=== PATIENT | female | born 1935 | race Caucasian/White ===

== ENCOUNTER 2017-04-19 11:59 | Inpatient (IN) | payer OTHER, BC ==
[2017-04-19 12:10] VITALS: BMI 31.7
--- NOTE | 2017-04-19 12:14 | PDOC ---
History of Present Illness - General Chief Complaint: Chest Pain Stated Complaint: CHEST PAIN Time Seen by Provider: 04/19/17 12:13 History Source: Patient, Family Exam Limitations: No Limitations - History of Present Illness Initial Comments: 04/19/17 12:13 Patient is an 81 year old female with history of htn, cad s/p 2x stents, unspecified lung disease, gerd and chronic cough who was seen by PCP for 2 days of cough and progressive SOB and referred to the ED for a SBP of 210. Patient received an extra dose of Bystolic in her PCPs office and, on presenting, was bradycardic with a SBP of 185 and an O2 saturation of 87% on room air. Patient claims to have a chronic cough that worsened over the last week and progressed to a shortness of breath, pleuritic chest discomfort and light headedness for the last 2 days. The chest discomfort is non radiating, aggravated by coughing and unchanged by exertion. Patient had a normal echo/stress test in March. Patient denies any loss of consciousness and had a normal PFT 1 week ago. Denies any long trips or immobilization or history of blood clots. Also denies fever, chills and abdominal pain but endorses lower extremity edema (chronic) and malaise. PCP: Dr. Taveras ([phone]) Medication: Atorvastatin 40 mg qPM furosemide 20 mg bid Losartan 100mg daily Bystolic 10 mg daily (recently changed from metoprolol 50 daily) Levothyroxine 100 mcg daily gaviscon 33cc q4he Pantoprazole 40mg bid Glycolax 1 scoop daily Klor-con 8mEq bid ASA 81mg daily Lexapro 10 mg daily Vit B12 1000 mcg daily Vit D 50,000 mg q1wk fluticasone nasal spray daily Past History - Past Medical History Allergies/Adverse Reactions: Allergies Allergy/AdvReac Type Severity Reaction Status Date / Time codeine [Codeine] Allergy Verified 04/19/17 12:10 meperidine HCl [From Demerol] Allergy Verified 04/19/17 12:10 Home Medications: Ambulatory Orders Aspirin [ASA -] 81 mg PO DAILY 04/19/17 Atorvastatin Ca [Lipitor] 40 mg PO HS 04/19/17 Cyanocobalamin (Vitamin B-12) [Vitamin B-12] 1,000 mcg PO DAILY 04/19/17 Escitalopram Oxalate [Lexapro -] 10 mg PO DAILY 04/19/17 Fluticasone Furoate [Flonase Sensimist] 9.9 ml NS DAILY 04/19/17 Furosemide 20 mg PO DAILY 04/19/17 Levothyroxine [Synthroid -] 100 mcg PO DAILY 04/19/17 Losartan Potassium [Cozaar] 100 mg PO DAILY 04/19/17 Mag Carb/Al Hydrox/Alginic AC [Gaviscon Liquid] 15 - 30 ml PO Q6H 04/19/17 Mometasone/Formoterol [Dulera 100 Mcg/5 Mcg Inhaler] 2 inh IH BID 04/19/17 Nebivolol HCl [Bystolic] 10 mg PO DAILY 04/19/17 Pantoprazole Sodium 40 mg PO BID 04/19/17 Polyethylene Glycol 3350 [Glycolax] 119 gm PO DAILY 04/19/17 Potassium Chloride [Klor-Con 8] 8 meq PO DAILY 04/19/17 Anemia: No Asthma: No Cancer: No Cardiac Disorders: (CARDIAC STENTS) CVA: No COPD: Yes CHF: Yes Dementia: No Diabetes: No GI Disorders: Yes (ACID REFLUX) Disorders: No HTN: Yes Hypercholesterolemia: Yes Liver Disease: No Seizures: No Thyroid Disease: Yes (thyroidectomy) - Surgical History Abdominal Surgery: No Appendectomy: No Cardiac Surgery: Yes (2 CARDIAC [id number]) Cholecystectomy: Yes Lung Surgery: No Neurologic Surgery: No Orthopedic Surgery: Yes (RIGHT KNEE ARTHROSCOPY) - Psycho/Social/Smoking Cessation Hx Anxiety: Yes Suicidal Ideation: No Smoking History: Never smoked Have you smoked in the past 12 months: No Number of Cigarettes Smoked Daily: 0 Information on smoking cessation initiated: No Hx Alcohol Use: No Drug/Substance Use Hx: No Substance Use Type: None Hx Substance Use Treatment: No Review of Systems - Review of Systems Able to Perform ROS?: Yes Is the patient limited [place] proficient: No Constitutional: Yes: Malaise, Weakness. No: Chills, Fever HEENTM: Yes: Other (Dry mouth and throat). No: Throat Pain Respiratory: Yes: Shortness of Breath Cardiac (ROS): Yes: Edema (lower extremity), Lightheadedness ABD/GI: Yes: Abdominal Distended, Constipated, Other (No abdominal pain). No: Diarrhea Neurological: Yes: Dizziness All Other Systems: Reviewed and Negative *Physical Exam - Vital Signs Last Vital Signs Temp Pulse Resp BP Pulse Ox 97.7 F 46 L 20 185/56 99 04/19/17 12:00 04/19/17 12:00 04/19/17 12:00 04/19/17 12:00 04/19/17 12:00 13:20: P 47, BP 172/44, RR 18, SPO2 96% 2L NC 14:00 BP 176/48, SPO2 94 RA 15:00 BP 193/58 15:22 BP 180/59 - Physical Exam General Appearance: Yes: Nourished, Appropriately Dressed HEENT: positive: EOMI, MORENA Respiratory/Chest: positive: Lungs Clear, Normal Breath Sounds, Respiratory Distress (Speaking in fragmented sentences), Other (Cough on deep inspiration). negative: Crackles, Rales, Rhonchi, Stridor, Wheezing Cardiovascular: negative: Regular Rate (Saúl), JVD Vascular Pulses: Dorsalis-Pedis (R): 3+, Doralis-Pedis (L): 3+ Extremity: positive: Pedal Edema (and ankles b/l, mild, non piting). negative: Delayed Capillary Refill (2-3s), Calf Tenderness (b/l) Integumentary: positive: Normal Color, Dry, Warm ED Treatment Course - LABORATORY CBC & Chemistry Diagram: 04/22/17 05:35 04/22/17 05:35 - RADIOLOGY Radiograph Interpretation: 04/19/17 15:59 RAD/CHEST X-RAY PORTABLE* Impression. No evidence of pulmonary infiltrates, pneumothorax or large pleural effusion. Shallow inspiration with accentuated pulmonary vasculature. Medical Decision Making - Medical Decision Making 04/19/17 13:46 Patient is 81 yo with htn, unspecified lung and heart disease, gerd, chronic cough presents with CC SOB, elevated SBP and associated lightheadedness, cp On physical exam, patient is found to be afebril with respiratory distress (low O2 saturation and speaking in broken sentences), mild lower extremity edema, a dry cough on deep inspiration and clear lungs Ddx: PE, Pneumothorax, PNA, CHF/COPD Exacerbation, ACS, H&T O2, Monitor, IV access CBC, CMP, CXR Cardiac enzymes, BNP, ECG @1:20 Monitor: 47, 172/49, RR18 96% 2L NC 04/19/17 13:53 CBC WBC 8.3 K/mm3 (4.0-10.0) 04/19/17 13:14 RBC 4.54 M/mm3 (3.60-5.2) 04/19/17 13:14 Hgb 10.6 GM/dL (10.7-15.3) L 04/19/17 13:14 Hct 32.7 % (32.4-45.2) 04/19/17 13:14 MCV 72.1 fl (80-96) L 04/19/17 13:14 MCH 23.3 pg (25.7-33.7) L 04/19/17 13:14 MCHC 32.3 g/dl (32.0-36.0) 04/19/17 13:14 RDW 19.0 % (11.6-15.6) H D 04/19/17 13:14 Plt Count 255 K/MM3 (134-434) 04/19/17 13:14 MPV 8.8 fl (7.5-11.1) 04/19/17 13:14 Neutrophils % 62.3 % (42.8-82.8) 04/19/17 13:14 Lymphocytes % 24.2 % (8-40) D 04/19/17 13:14 Monocytes % 11.1 % (3.8-10.2) H 04/19/17 13:14 Eosinophils % 1.7 % (0-4.5) 04/19/17 13:14 Basophils % 0.7 % (0-2.0) 04/19/17 13:14 Anemia (10.6) with elevated RDW Hgb was 11.2 on 04/13/16 No elevation in WBC 04/19/17 15:13 CXR: No evidence of pulmonary infiltrates, pneumothorax, or large plural effusion. Accentuated pulmonary vasculature consistent with fluid o/l. trop(-), BNP > 1000, sob likely d/t mild fluid overload in context of increased anemia BUN, Alk Phos, baseline elevations BP 193/58, 94% RA Patient given an extra dose Lasix to remove some fluid and help with the continued hypertension. 04/19/17 15:19 Patient is afebrile and maintaining saturation above 94 on RA, SOB has improved and patient is urinating. BP increasing and signs of possible end ogrin damage (BNP >1000), likely dx Hypertensive emergency with CHF exacerbation Spoke with Dr Mica Taveras ([phone]) about admitting the patient to telemetry, she agreed to have patient admitted to cardiac observation through Dr. Shelby to monitor patients BP. 04/19/17 15:30 BP: 180/59, 0.4 Nitro SL 04/19/17 15:[address] Shelby and he agreed to admit patient to tele obs Spoke with patient and family who were in agreement with the plan. *DC/Admit/Observation/Transfer Diagnosis at time of Disposition: Hypertensive emergency, Shortness of breath Congestive cardiac failure Qualifiers: Congestive heart failure type: unspecified congestive heart failure type Congestive heart failure chronicity: unspecified congestive heart failure chronicity Qualified Code(s): I50.9 - Heart failure, unspecified - Discharge Dispostion Admit: Yes - Referrals - Attestations Physician Attestion: 04/19/17 15:54 I, Dr. Uri Calabrese, attest that this document has been prepared under my direction and personally reviewed by me in its entirety. I further attest, that it accurately reflects all work, treatment, procedures and medical decision -making performed by me.
[2017-04-19 13:20] LABS: BASOPHIL 0.7 % (0-2.0); EOSINOPHIL 1.7 % (0-4.5); MCH 23.3 pg (25.7-33.7); MCHC 32.3 g/dl (32.0-36.0); MEAN CELL VOLUME 72.1 fl (80-96); MEAN PLT VOLUME 8.8 fl (7.5-11.1); NEUTROPHILS 62.3 % (42.8-82.8); PLATELET COUNT 255 K/MM3 (134-434); WHITE BLOOD COUNT 8.3 K/mm3 (4.0-10.0)
--- NOTE | 2017-04-19 13:35 | PDOC ---
Attending Attestation - Resident Resident Name: Uri Calabrese - ED Attending Attestation I have performed the following: I have examined & evaluated the patient, The case was reviewed & discussed with the resident, I agree w/resident's findings & plan, Exceptions are as noted - HPI HPI: 04/19/17 13:22 81 yo F with h/o CAD, CHF HTN , chronic lung disease ( unknown cause h/o second hand smoke exposure) here with c/o sob. progressive for few days. does have a cough, productive clear phlegm. no f/c no n/v no cp. no worsening leg edema. has been taking bistolic, and lasix 40 mg q am only. today saw dr. hudson, and sent to eD due to HTN 210/80 wheezing on exam concerns for fluid overload. no cp. no n/v no mod factore. sob not postional. only chest discomfort when coughing. pt had recent pulmonary function test which were negative. also had a stress test and echo in 03/20 which were unremarkable.per pcp dr. boles - Physicial Exam PE: 05/03/17 04:09 NAD. lungs bilateral wheezing. no crackles. heart RRR no mrgb. abd soft Nt nd. ext wwp mild nonpitting edema. - Medical Decision Making 05/03/17 04:09 81 yo F with h/o chf, here with c/o wheezing sob, differential brochitis, copdk chf infection such as pna, plan labs ekg cxr neb. reassess. Heart Score/ECG Review #1 General ECG Interpretation: Sinus Rhythm, Normal Rate (sinus indira cardia 49 bpm ), Normal Intervals, No acute ischemic changes Compared to previous ECG there are: No significant change 04/19/17 13:[address] elevation or depression - ECG Impressions Bradycardia: Yes
[2017-04-19 14:07] LABS: ALBUMIN 3.4 g/dl (3.4-5.0); ALK PHOS 167 U/L (45-117); ANION GAP 6 (8-16); BILIRUBIN,TOTAL 0.7 mg/dL (0.2-1.0); CALCIUM 8.9 mg/dL (8.5-10.1); CO2 29 mmol/L (21-32); CREATININE 0.8 mg/dL (0.55-1.02); GLUCOSE,RANDOM 82 mg/dL (74-106); SGOT/AST 27 U/L (15-37); SGPT/ALT 18 U/L (12-78); TOT PROT 6.2 g/dl (6.4-8.2)
[2017-04-19 14:23] LABS: TROPONIN I < 0.02 ng/ml (0.00-0.05)
[2017-04-19] MEDS ORDERED: FUROSEMIDE 40 MG/4 ML INJECTABLE VIAL IVPUSH ONE (15:00)
[2017-04-19] MEDS ORDERED: FUROSEMIDE 40 MG/4 ML INJECTABLE VIAL ONE (15:24)
[2017-04-19] MEDS ORDERED: ACETAMINOPHEN 325 MG TABLET (FP) PO ONE (16:21)
[2017-04-19] MEDS ORDERED: ACETAMINOPHEN 325 MG TABLET (FP) ONE (16:58)
--- NOTE | 2017-04-19 16:59 | EKG ---
Test Reason : Blood Pressure : / mmHG Vent. Rate : 049 BPM Atrial Rate : 049 BPM P-R Int : 222 ms QRS Dur : 080 ms QT Int : 516 ms P-R-T Axes : 044 007 008 degrees QTc Int : 466 ms SINUS BRADYCARDIA WITH 1ST DEGREE A-V BLOCK WITH PREMATURE ATRIAL COMPLEXES NONSPECIFIC ST ABNORMALITY ABNORMAL ECG WHEN COMPARED WITH ECG OF 13-APR-2016 07:42, PREMATURE ATRIAL COMPLEXES ARE NOW PRESENT PREMATURE VENTRICULAR COMPLEX IS NO LONGER SEEN Confirmed by CARINA FARLEY MD ([id number]) on 04/19/2017 4:58:57 PM Referred By: Confirmed By:CARINA FARLEY MD
--- NOTE | 2017-04-19 17:19 | HP ---
Admitting History and Physical - Primary Care Physician PCP: Mica Taveras - Admission Chief Complaint: I'm short of breath History of Present Illness: Ms Dorantes is a very pleasant 81 year old female who comes in from the office with hypertensive urgency and CHF exacerbation. She says it began approximately one week ago but has worsened since yesterday. She says she has chest heaviness with shortness of breath. She cannot tell me if the chest heaviness is alleviated, however exertion and talking exacerbates it. She also has shortness of breath associated with the heaviness. The heaviness does not radiate. She has lightheadedness but not passing out. She has a cough that is chronic and unchanged. She has orthopnea associated with it. She feels bloating in her abdomen and swelling in her legs. She denies abdominal pain, nausea, vomiting, diarrhea, or difficulty or pain on urination. She says she has a high salt diet and is not strict about her diet. History Source: Patient Limitations to Obtaining History: No Limitations - Past Medical History Cardiovascular: Yes: CAD, HTN, Other (coronary stenting on 2 occasions, s/p mitral valvuloplasty) Pulmonary: Yes: COPD Gastrointestinal: Yes: Constipation, Diverticulitis, Gastritis, GERD, Other ( colon adenomas) Musculoskeletal: Yes: Chronic low back pain, Osteoarthritis Endocrine: Yes: Hypothyroidism, Other (osteoporosis) - Past Surgical History Past Surgical History: Yes: Arthrosocopy, Cholecystectomy, Hysterectomy - Smoking History Smoking history: Never smoked Have you smoked in the past 12 months: No Aproximately how many cigarettes per day: 0 - Alcohol/Substance Use Hx Alcohol Use: No History of Substance Use: reports: None - Social History Usual Living Arrangement: Yes: Alone ADL: Independent History of Recent Travel: No Home Medications - Allergies Allergies/Adverse Reactions: Allergies Allergy/AdvReac Type Severity Reaction Status Date / Time codeine [Codeine] Allergy Verified 04/19/17 12:10 meperidine HCl [From Demerol] Allergy Verified 04/19/17 12:10 - Home Medications Home Medications: Ambulatory Orders Aspirin [ASA -] 81 mg PO DAILY 04/19/17 Atorvastatin Ca [Lipitor] 40 mg PO HS 04/19/17 Cyanocobalamin (Vitamin B-12) [Vitamin B-12] 1,000 mcg PO DAILY 04/19/17 Escitalopram Oxalate [Lexapro -] 10 mg PO DAILY 04/19/17 Fluticasone Furoate [Flonase Sensimist] 9.9 ml NS DAILY 04/19/17 Furosemide 20 mg PO DAILY 04/19/17 Levothyroxine [Synthroid -] 100 mcg PO DAILY 04/19/17 Losartan Potassium [Cozaar] 100 mg PO DAILY 04/19/17 Mag Carb/Al Hydrox/Alginic AC [Gaviscon Liquid] 15 - 30 ml PO Q6H 04/19/17 Mometasone/Formoterol [Dulera 100 Mcg/5 Mcg Inhaler] 2 inh IH BID 04/19/17 Nebivolol HCl [Bystolic] 10 mg PO DAILY 04/19/17 Pantoprazole Sodium 40 mg PO BID 04/19/17 Polyethylene Glycol 3350 [Glycolax] 119 gm PO DAILY 04/19/17 Potassium Chloride [Klor-Con 8] 8 meq PO DAILY 04/19/17 Family Disease History - Family Disease History Family Disease History: Diabetes: Brother (bladder cancer), Heart Disease: Mother, Brother, CA: Brother, Sister (colon cancer, esophageal cancer,ovarian cancer), Other: Father (cva) Review of Systems Findings/Remarks: Full review of systems obtained, as per HPI and otherwise negative Physical Examination Vital Signs: Vital Signs Temperature 97.7 F 04/19/17 12:00 Pulse Rate 64 04/19/17 16:19 Respiratory Rate 18 04/19/17 16:19 Blood Pressure 160/54 04/19/17 16:19 O2 Sat by Pulse Oximetry (%) 100 04/19/17 16:19 Constitutional: Yes: Well Nourished, No Distress, Calm Eyes: Yes: Conjunctiva Clear, EOM Intact, PERRL HENT: Yes: Atraumatic, Normocephalic Cardiovascular: Yes: Regular Rate and Rhythm. No: Gallop, Murmur, Rub Respiratory: Yes: Regular, CTA Bilaterally. No: Rales, Rhonchi, Wheezes Gastrointestinal: Yes: Normal Bowel Sounds, Soft. No: Distention, Tenderness Extremities: Yes: WNL Edema: Yes Edema: LLE: Trace, RLE: Trace Labs: Laboratory Results - last 24 hr 04/19/17 04/19/17 04/19/17 12:56 13:14 13:14 WBC 8.3 RBC 4.54 Hgb 10.6 L Hct 32.7 MCV 72.1 L MCH 23.3 L MCHC 32.3 RDW 19.0 H D Plt Count 255 MPV 8.8 Neutrophils % 62.3 Lymphocytes % 24.2 D Monocytes % 11.1 H Eosinophils % 1.7 Basophils % 0.7 Sodium 143 Potassium 3.8 Chloride 108 H Carbon Dioxide 29 Anion Gap 6 L BUN 24 H Creatinine 0.8 Creat Clearance w eGFR > 60 Random Glucose 82 Calcium 8.9 Total Bilirubin 0.7 AST 27 ALT 18 D Alkaline Phosphatase 167 H D Creatine Kinase Cancelled 98 Troponin I Cancelled < 0.02 B-Natriuretic Peptide Cancelled 1048.8 H Total Protein 6.2 L Albumin 3.4 Imaging - Results Chest X-ray: Report Reviewed, Image Reviewed EKG: Image Reviewed Problem List - Problems (1) Acute on chronic diastolic (congestive) heart failure Assessment/Plan: -admit to telemetry -consult cardiology -diurese with IV lasix -monitor blood pressure Code(s): I50.33 - ACUTE ON CHRONIC DIASTOLIC (CONGESTIVE) HEART FAILURE (2) Hypertensive emergency Assessment/Plan: -exacerbating heart failure -will admit to telemetry -change lasix from oral to IV -continue home regimen -monitor, may need to adjust Code(s): I16.1 - HYPERTENSIVE EMERGENCY (3) Coronary artery disease Assessment/Plan: -no chest pain -continue home regimen -check cardiac enzymes x3 Code(s): I25.10 - ATHSCL HEART DISEASE OF [place] CORONARY ARTERY W/O ANG PCTRS Qualifiers: Coronary Disease-Associated Artery/Lesion type: [place] artery [place] vs. transplanted heart: [place] heart Associated angina: without angina Qualified Code(s): I25.10 - Atherosclerotic heart disease of [place] coronary artery without angina pectoris (4) Hyperlipidemia Assessment/Plan: -continue statin Code(s): E78.5 - HYPERLIPIDEMIA, UNSPECIFIED Qualifiers: Hyperlipidemia type: Pure hypercholesterolemia (5) Reflux esophagitis Assessment/Plan: -continue PPI Code(s): K21.0 - GASTRO-ESOPHAGEAL REFLUX DISEASE WITH ESOPHAGITIS (6) Emphysema of lung Assessment/Plan: -suspect shortness of breath is more cardiac than pulmonary -continue dulera or therapeutic substitute Code(s): J43.9 - EMPHYSEMA, UNSPECIFIED Qualifiers: Emphysema type: unspecified Qualified Code(s): J43.9 - Emphysema, unspecified (7) Hypothyroid Assessment/Plan: -check TSH and free T4 -may be contributing to HTN and CHF Code(s): E03.9 - HYPOTHYROIDISM, UNSPECIFIED
[2017-04-19] MEDS: ACETAMINOPHEN 325 MG TABLET (FP) PO PRN (21:31)
[2017-04-19] MEDS: ATORVASTATIN CA 40 MG TABLET (FP) PO SCH (21:31)
[2017-04-19 22:35] LABS: TROPONIN I < 0.02 ng/ml (0.00-0.05)
[2017-04-20] MEDS ORDERED: FUROSEMIDE 40 MG/4 ML INJECTABLE VIAL IVPUSH SCH (06:00)
[2017-04-20] MEDS: LEVOTHYROXINE NA 100 MCG TABLET (FP) PO SCH (06:18)
[2017-04-20 08:15] LABS: BASOPHIL 0.5 % (0-2.0); EOSINOPHIL 2.7 % (0-4.5); MCH 23.3 pg (25.7-33.7); MCHC 32.4 g/dl (32.0-36.0); MEAN CELL VOLUME 71.9 fl (80-96); MEAN PLT VOLUME 8.9 fl (7.5-11.1); NEUTROPHILS 52.4 % (42.8-82.8); PLATELET COUNT 233 K/MM3 (134-434); RDW 19.3 % (11.6-15.6); WHITE BLOOD COUNT 6.6 K/mm3 (4.0-10.0)
[2017-04-20 08:36] LABS: ALBUMIN 3.1 g/dl (3.4-5.0); ANION GAP 6 (8-16); BILIRUBIN,TOTAL 0.5 mg/dL (0.2-1.0); CALCIUM 8.8 mg/dL (8.5-10.1); CO2 31 mmol/L (21-32); CREATININE 0.9 mg/dL (0.55-1.02); GLUCOSE,RANDOM 80 mg/dL (74-106); PHOSPHOROUS 3.6 mg/dL (2.5-4.9); SGOT/AST 21 U/L (15-37); SGPT/ALT 16 U/L (12-78); TOT PROT 5.6 g/dl (6.4-8.2)
[2017-04-20 08:42] LABS: ALK PHOS 153 U/L (45-117); THYROID STIMULATING HORMONE 3.09 uIU/ml (0.358-3.74)
[2017-04-20 08:49] LABS: FREE T4 1.38 ng/dl (0.76-1.46); TROPONIN I < 0.02 ng/ml (0.00-0.05)
[2017-04-20] MEDS: PANTOPRAZOLE 40 MG TABLET (FP) PO SCH (09:02)
[2017-04-20] MEDS: ESCITALOPRAM OXALATE 10 MG TABLET (FP) PO SCH (09:02)
[2017-04-20] MEDS: CYANOCOBALAMIN 1,000 MCG TABLET (FP) PO SCH (09:02)
[2017-04-20] MEDS: LOSARTAN POTASSIUM 50 MG TABLET (FP) PO SCH (09:02)
[2017-04-20] MEDS: ASPIRIN 81 MG CHEWABLE TABLETS PO SCH (09:02)
[2017-04-20] MEDS: POLYETHYLENE GLYCOL 3350 119 GM BTL PO SCH (09:03)
[2017-04-20] MEDS ORDERED: FLUTICASONE FUROATE NS SCH (10:00)
[2017-04-20] MEDS ORDERED: POLYETHYLENE GLYCOL 3350 255 GM BTL PO SCH (10:00)
[2017-04-20] MEDS ORDERED: NEBIVOLOL 10 MG TABLET (FP) PO SCH (10:00)
[2017-04-20] MEDS ORDERED: LOSARTAN POTASSIUM 50 MG TABLET (FP) PO ONE (10:08)
--- NOTE | 2017-04-20 11:04 | CON.CARD ---
Cardiology Consult (text) - Consultation Consultation Note: cc: sent from pmd for htn and sob hpi: 81 f hx htn, hld, hypothyroid, cad s/p pci 2007 (lad), le edema/venous insuff, chronic URIs sent to er by pmd for htn and sob. Past few days pt has noticed herr. Also with dry cough but this is a chronic issue. With her herr she felt some chest heaviness as well. No palps, dizzy, loc, pnd, orthopnea. LE edema improved lately. She saw pmd and sbp 200s so sent to ER. Sees me for cardio. pmh: per hpi psh: cholecystectomy, hysterectomy social: no tob fam: no premature cad ros: per hpi; no fever, nvd, alanis, vision changes, nasal congestion, gib, hematuria, dysuria meds: Home Medications Medication Instructions Recorded Aspirin [ASA -] 81 mg PO DAILY 04/19/17 Atorvastatin Ca [Lipitor] 40 mg PO HS 04/19/17 Cyanocobalamin (Vitamin B-12) 1,000 mcg PO DAILY 04/19/17 [Vitamin B-12] Escitalopram Oxalate [Lexapro -] 10 mg PO DAILY 04/19/17 Fluticasone Furoate [Flonase 9.9 ml NS DAILY 04/19/17 Sensimist] Furosemide 20 mg PO DAILY 04/19/17 Levothyroxine [Synthroid -] 100 mcg PO DAILY 04/19/17 Losartan Potassium [Cozaar] 100 mg PO DAILY 04/19/17 Mag Carb/Al Hydrox/Alginic AC 15 - 30 ml PO Q6H 04/19/17 [Gaviscon Liquid] Mometasone/Formoterol [Dulera 100 2 inh IH BID 04/19/17 Mcg/5 Mcg Inhaler] Nebivolol HCl [Bystolic] 10 mg PO DAILY 04/19/17 Pantoprazole Sodium 40 mg PO BID 04/19/17 Polyethylene Glycol 3350 [Glycolax] 119 gm PO DAILY 04/19/17 Potassium Chloride [Klor-Con 8] 8 meq PO DAILY 04/19/17 pe: Vital Signs Period Temp Pulse Resp BP Sys/Rios Pulse Ox Last 24 Hr 97.4 F-98.4 F 45-64 18-20 157-196/45-84 95-100 nad no jvd rrr s1s2 no mrg cta bl nl eff aaox3 no le e/c/c abd nt nd pos bs no jaundiced diaphoresis +dp/pt, no carotid bruits 04/19/17 04/19/17 04/20/17 13:14 13:14 05:55 WBC 8.3 6.6 RBC 4.54 4.40 Hgb 10.6 L 10.3 L Hct 32.7 31.7 L MCV 72.1 L 71.9 L MCHC 32.3 32.4 RDW 19.0 H D 19.3 H Plt Count 255 233 Neutrophils % 62.3 52.4 Lymphocytes % 24.2 D 31.4 D Monocytes % 11.1 H 13.0 H Eosinophils % 1.7 2.7 Basophils % 0.7 0.5 Sodium 143 Potassium 3.8 Chloride 108 H Carbon Dioxide 29 Anion Gap 6 L BUN 24 H Creatinine 0.8 04/20/17 05:55 WBC RBC Hgb Hct MCV MCHC RDW Plt Count Neutrophils % Lymphocytes % Monocytes % Eosinophils % Basophils % Sodium 145 Potassium 3.9 Chloride 108 H Carbon Dioxide 31 Anion Gap 6 L BUN 27 H Creatinine 0.9 echo 03/2017: nl lv/rv, mild ar/mr mibi 03/2017: nl mpi, nl lvef ecg 04/19/17: sinus indira, pacs, 1st deg avb, nl qtc, no ischemic changes cxr: no chf tele: sinus indira 40s a/p: 81 f hx htn, hld, hypothyroid, cad s/p pci 2007 (lad), le edema/venous insuff, chronic URIs sent to er by pmd for htn and sob. sob, acute diastolic chf likely secondary to hypertensive emergency: -sob and elevated bnp likely due to hypertensive emergency causing dchf -no signs acs -cont cozaar. she is indira with bystolic so will dc. she had worse le edema with ccb so will avoid. Will start hydralazine 50 bid for now and monitor bp response -will likely not need much iv lasix as she does not appear very vol overloaded and sxs should improve with bp control -recent echo and mibi unremarkable le edema/venous insuff: -stable, no sig le edema currently -resume lasix 20 po qd-bid on dc htn: -plan as above hld: -cont statin cad s/p remote pci: -stable, no angina, no signs acs -ce's neg x3, ecg w/o ischemic changes -recent mibi and echo unremarkable -cont asa, statin, arb -will dc bb due to bradycardia
[2017-04-20] MEDS: hydrALAZINE HCL 50 MG TABLET (FP) PO SCH ×2 (11:30→23:04)
--- NOTE | 2017-04-20 13:19 | PN ---
Progress Note, Physician Chief Complaint: Ms Dorantes still with chest tightness and shortness of breath. No abdominal pain or nausea/vomiting. - Current Medication List Current Medications: Active Medications Acetaminophen (Tylenol -) 650 mg PO Q4H PRN PRN Reason: FEVER OR PAIN Last Admin: 04/19/17 21:31 Dose: 650 mg Aspirin (Asa -) 81 mg PO DAILY [facility] Last Admin: 04/20/17 09:02 Dose: 81 mg Atorvastatin Calcium (Lipitor -) 40 mg PO HS [facility] Last Admin: 04/19/17 21:31 Dose: 40 mg Cyanocobalamin (Vitamin B12 -) 1,000 mcg PO DAILY [facility] Last Admin: 04/20/17 09:02 Dose: 1,000 mcg Escitalopram Oxalate (Lexapro -) 10 mg PO DAILY [facility] Last Admin: 04/20/17 09:02 Dose: 10 mg Furosemide (Lasix Injection -) 40 mg IVPUSH BIDLASIX [facility] Last Admin: 04/20/17 06:18 Dose: 40 mg Hydralazine HCl (Apresoline -) 50 mg PO BID [facility] Last Admin: 04/20/17 11:30 Dose: 50 mg Levothyroxine Sodium (Synthroid -) 100 mcg PO DAILY@0700 [facility] Last Admin: 04/20/17 06:18 Dose: 100 mcg Losartan Potassium (Cozaar -) 100 mg PO DAILY [facility] Last Admin: 04/20/17 09:02 Dose: 100 mg Non-Formulary Medication (Fluticasone Furoate [Flonase Sensimist]) 9.9 ml NS DAILY [facility] Non-Formulary Medication (Mag Carb/Al Hydrox/Alginic Ac [Gaviscon Liquid]) 30 ml PO Q6H [facility] Non-Formulary Medication (Mometasone/Formoterol [Dulera 100 Mcg/5 Mcg Inhaler]) 2 inh IH BID [facility] Pantoprazole Sodium (Protonix -) 40 mg PO DAILY [facility] Last Admin: 04/20/17 09:02 Dose: 40 mg Polyethylene Glycol (Miralax (For Daily Use) -) 17 gm PO DAILY [facility] Last Admin: 04/20/17 09:03 Dose: 17 gm - Objective Vital Signs: Vital Signs Temperature 98.3 F 04/20/17 08:45 Pulse Rate 48 L 04/20/17 08:45 Respiratory Rate 20 04/20/17 10:00 Blood Pressure 193/64 07/18/17 08:45 O2 Sat by Pulse Oximetry (%) 98 04/20/17 10:00 Constitutional: Yes: Well Nourished, No Distress, Calm Cardiovascular: Yes: Pulse Irregular. No: Tachycardia, Gallop, Murmur, Rub Respiratory: Yes: Regular, CTA Bilaterally, On Nasal O2. No: Rales, Rhonchi, Wheezes Gastrointestinal: Yes: Normal Bowel Sounds, Soft. No: Distention, Tenderness Extremities: Yes: WNL Edema: Yes Edema: LLE: Trace, RLE: Trace Labs: CBC, BMP 04/20/17 05:55 04/20/17 05:55 Problem List - Problems (1) Acute on chronic diastolic (congestive) heart failure Code(s): I50.33 - ACUTE ON CHRONIC DIASTOLIC (CONGESTIVE) HEART FAILURE (2) Hypertensive emergency Code(s): I16.1 - HYPERTENSIVE EMERGENCY (3) Coronary artery disease Code(s): I25.10 - ATHSCL HEART DISEASE OF [place] CORONARY ARTERY W/O ANG PCTRS Qualifiers: Coronary Disease-Associated Artery/Lesion type: [place] artery [place] vs. transplanted heart: [place] heart Associated angina: without angina Qualified Code(s): I25.10 - Atherosclerotic heart disease of [place] coronary artery without angina pectoris (4) Hyperlipidemia Code(s): E78.5 - HYPERLIPIDEMIA, UNSPECIFIED Qualifiers: Hyperlipidemia type: Pure hypercholesterolemia (5) Reflux esophagitis Code(s): K21.0 - GASTRO-ESOPHAGEAL REFLUX DISEASE WITH ESOPHAGITIS (6) Emphysema of lung Code(s): J43.9 - EMPHYSEMA, UNSPECIFIED Qualifiers: Emphysema type: unspecified Qualified Code(s): J43.9 - Emphysema, unspecified (7) Hypothyroid Code(s): E03.9 - HYPOTHYROIDISM, UNSPECIFIED Assessment/Plan (1) Acute on chronic diastolic (congestive) heart failure Assessment/Plan: -appreciate cardiology assistance -continue IV lasix, diuresing well -7lbs weight loss recorded Code(s): I50.33 - ACUTE ON CHRONIC DIASTOLIC (CONGESTIVE) HEART FAILURE (2) Hypertensive emergency Assessment/Plan: -exacerbating heart failure -still elevated -reviewed cardiology note, hydralazine added -monitor Code(s): I16.1 - HYPERTENSIVE EMERGENCY (3) Coronary artery disease Assessment/Plan: -no chest pain -continue home regimen -cardiac enzymes x3 negative Code(s): I25.10 - ATHSCL HEART DISEASE OF [place] CORONARY ARTERY W/O ANG PCTRS Qualifiers: Coronary Disease-Associated Artery/Lesion type: [place] artery [place] vs. transplanted heart: [place] heart Associated angina: without angina Qualified Code(s): I25.10 - Atherosclerotic heart disease of [place] coronary artery without angina pectoris (4) Hyperlipidemia Assessment/Plan: -continue statin Code(s): E78.5 - HYPERLIPIDEMIA, UNSPECIFIED Qualifiers: Hyperlipidemia type: Pure hypercholesterolemia (5) Reflux esophagitis Assessment/Plan: -continue PPI Code(s): K21.0 - GASTRO-ESOPHAGEAL REFLUX DISEASE WITH ESOPHAGITIS (6) Emphysema of lung Assessment/Plan: -spoke with pharmacy -change dulera to advair Code(s): J43.9 - EMPHYSEMA, UNSPECIFIED Qualifiers: Emphysema type: unspecified Qualified Code(s): J43.9 - Emphysema, unspecified (7) Hypothyroid Assessment/Plan: -continue synthroid -TSH and FT4 within normal limits Code(s): E03.9 - HYPOTHYROIDISM, UNSPECIFIED
[2017-04-20] MEDS ORDERED: MAG HYDROX/AL HYDROX/SIMETH 30 ML UNIT-DOSE CUP PO PRN (14:05)
[2017-04-20] MEDS: PATIENT'S OWN MEDICATION (NON-FORMULARY) (Mometasone/Formoterol [Dulera 100 Mcg/5 Mcg Inha IH SCH ×2 (14:10→16:39)
[2017-04-20] MEDS: BUDESONIDE/FORMETEROL FUMARATE 80/4.5 mcg INHALER IH SCH ×2 (14:45→23:03)
[2017-04-20] MEDS: ALBUTEROL SO4 0.083% IH SOL 2.5 MG/3 ML VIAL.NEB. NEB PRN (21:35)
[2017-04-20] MEDS: ATORVASTATIN CA 40 MG TABLET (FP) PO SCH (23:04)
[2017-04-20] MEDS: ACETAMINOPHEN 325 MG TABLET (FP) PO PRN (23:04)
[2017-04-21] MEDS: LEVOTHYROXINE NA 100 MCG TABLET (FP) PO SCH (06:15)
[2017-04-21 07:21] LABS: MCH 22.6 pg (25.7-33.7); MCHC 31.3 g/dl (32.0-36.0); MEAN CELL VOLUME 72.4 fl (80-96); MEAN PLT VOLUME 9.1 fl (7.5-11.1); PLATELET COUNT 278 K/MM3 (134-434); RDW 19.2 % (11.6-15.6); WHITE BLOOD COUNT 9.8 K/mm3 (4.0-10.0)
[2017-04-21 07:52] LABS: ANION GAP 9 (8-16); CALCIUM 9.1 mg/dL (8.5-10.1); CO2 27 mmol/L (21-32); CREATININE 1.1 mg/dL (0.55-1.02); GLUCOSE,RANDOM 90 mg/dL (74-106); MAGNESIUM 2.2 mg/dL (1.8-2.4); PHOSPHOROUS 3.7 mg/dL (2.5-4.9)
[2017-04-21] MEDS ORDERED: hydrALAZINE HCL 50 MG TABLET (FP) PO SCH (10:03)
[2017-04-21 10:37] LABS: HYPOCHROMIA 1+
[2017-04-21 10:38] LABS: ANISOCYTOSIS 1+
--- NOTE | 2017-04-21 11:03 | PN ---
Progress Note (short form) - Note Progress Note: s: no cp palps dizzy; still with mild sob o: Vital Signs Period Temp Pulse Resp BP Sys/Rios Pulse Ox Last 24 Hr 97.4 F-98.6 F 48-56 18-22 101-151/42-60 95 nad no jvd rrr s1s2 no mrg cta bl nl eff aaox3 no le e/c/c abd nt nd pos bs no jaundiced diaphoresis Current Medications Generic Name Dose Route Start Last Admin Trade Name Freq PRN Reason Stop Dose Admin Acetaminophen 650 mg 04/19/17 17:15 04/20/17 23:04 Tylenol - PO 650 mg Q4H PRN Administration FEVER OR PAIN Al Hydroxide/Mg Hydroxide 30 ml 04/20/17 14:05 Mylanta Oral Suspension - PO Q6HPO PRN INDIGESTION Albuterol Sulfate 1 amp 04/20/17 20:32 04/20/17 21:35 Ventolin 0.083% Nebulizer Soln - NEB 1 amp Q6H PRN Administration SHORT OF BREATH/WHEEZING Aspirin 81 mg 04/20/17 10:00 04/20/17 09:02 Asa - PO 81 mg DAILY [facility] Administration Atorvastatin Calcium 40 mg 04/19/17 22:00 04/20/17 23:04 Lipitor - PO 40 mg HS [facility] Administration Budesonide/Formoterol Fumarate 2 puff 04/20/17 13:54 04/20/17 23:03 Symbicort 80/4.5mcg - IH 2 puff BID [facility] Administration Cyanocobalamin 1,000 mcg 04/20/17 10:00 04/20/17 09:02 Vitamin B12 - PO 1,000 mcg DAILY [facility] Administration Escitalopram Oxalate 10 mg 04/20/17 10:00 04/20/17 09:02 Lexapro - PO 10 mg DAILY [facility] Administration Fluticasone Propionate 1 spray 04/21/17 10:00 Flonase - NS DAILY [facility] Furosemide 20 mg 04/21/17 10:00 Lasix - PO DAILY [facility] Hydralazine HCl 10 mg 04/21/17 10:30 Apresoline - PO BID [facility] Levothyroxine Sodium 100 mcg 04/20/17 07:00 04/21/17 06:15 Synthroid - PO 100 mcg DAILY@0700 [facility] Administration Losartan Potassium 100 mg 04/20/17 10:00 07/18/17 09:02 Cozaar - PO 100 mg DAILY [facility] Administration Pantoprazole Sodium 40 mg 04/20/17 10:00 04/20/17 09:02 Protonix - PO 40 mg DAILY [facility] Administration Polyethylene Glycol 17 gm 04/20/17 10:00 04/20/17 09:03 Miralax (For Daily Use) - PO 17 gm DAILY [facility] Administration CBC, BMP 04/21/17 05:35 04/21/17 05:35 echo 03/2017: nl lv/rv, mild ar/mr mibi 03/2017: nl mpi, nl lvef ecg 04/19/17: sinus indira, pacs, 1st deg avb, nl qtc, no ischemic changes cxr: no chf tele: sr a/p: 81 f hx htn, hld, hypothyroid, cad s/p pci 2007 (lad), le edema/venous insuff, chronic URIs sent to er by pmd for htn and sob. sob, acute diastolic chf likely secondary to hypertensive emergency: -sob and elevated bnp likely due to hypertensive emergency causing dchf -no signs acs -cont cozaar. she is indira with bystolic so stopped here. she had worse le edema with ccb so will avoid. Started hydralazine 50 bid but then had bp on lower side so will decrease to 10 bid and titrate up if needed -after iv lasix here bun/cr bumped and she does not appear vol overloaded now so will change back to home po lasix 20 qd -her sob/herr is a chronic symptom for her, may be have been exacerbated by htn emergency, but otherwise does not appear cardiac in etiology -recent echo and mibi unremarkable le edema/venous insuff: -stable, no sig le edema currently -resumed lasix 20 po qd htn: -plan as above hld: -cont statin cad s/p remote pci: -stable, no angina, no signs acs -ce's neg x3, ecg w/o ischemic changes -recent mibi and echo unremarkable -cont asa, statin, arb -stopped bb due to bradycardia
[2017-04-21] MEDS: LOSARTAN POTASSIUM 50 MG TABLET (FP) PO SCH (11:50)
[2017-04-21] MEDS: ASPIRIN 81 MG CHEWABLE TABLETS PO SCH (11:50)
[2017-04-21] MEDS: ESCITALOPRAM OXALATE 10 MG TABLET (FP) PO SCH (11:51)
[2017-04-21] MEDS: POLYETHYLENE GLYCOL 3350 119 GM BTL PO SCH (11:51)
[2017-04-21] MEDS: FUROSEMIDE 20 MG TABLET (FP) PO SCH (11:51)
[2017-04-21] MEDS: FLUTICASONE PROP 0.05% 16 GM NASAL SPRAY NS SCH (11:51)
[2017-04-21] MEDS: BUDESONIDE/FORMETEROL FUMARATE 80/4.5 mcg INHALER IH SCH ×2 (11:52→21:17)
[2017-04-21] MEDS: PANTOPRAZOLE 40 MG TABLET (FP) PO SCH (11:52)
[2017-04-21] MEDS: hydrALAZINE HCL 10 MG TABLET PO SCH ×2 (11:52→21:15)
[2017-04-21] MEDS: CYANOCOBALAMIN 1,000 MCG TABLET (FP) PO SCH (11:52)
--- NOTE | 2017-04-21 12:44 | PN ---
Progress Note, Physician Chief Complaint: Ms Dorantes says she is feeling better and is now at baseline. She says her baseline is significant shortness of breath with minimal activity or talking. Chest tightness has resolved. No abdominal pain or nausea/vomiting. - Current Medication List Current Medications: Active Medications Acetaminophen (Tylenol -) 650 mg PO Q4H PRN PRN Reason: FEVER OR PAIN Last Admin: 04/20/17 23:04 Dose: 650 mg Al Hydroxide/Mg Hydroxide (Mylanta Oral Suspension -) 30 ml PO Q6HPO PRN PRN Reason: INDIGESTION Albuterol Sulfate (Ventolin 0.083% Nebulizer Soln -) 1 amp NEB Q6H PRN PRN Reason: SHORT OF BREATH/WHEEZING Last Admin: 04/20/17 21:35 Dose: 1 amp Aspirin (Asa -) 81 mg PO DAILY [facility] Last Admin: 04/21/17 11:50 Dose: 81 mg Atorvastatin Calcium (Lipitor -) 40 mg PO HS [facility] Last Admin: 04/20/17 23:04 Dose: 40 mg Budesonide/Formoterol Fumarate (Symbicort 80/4.5mcg -) 2 puff IH BID [facility] Last Admin: 04/21/17 11:52 Dose: 2 puff Cyanocobalamin (Vitamin B12 -) 1,000 mcg PO DAILY [facility] Last Admin: 04/21/17 11:52 Dose: 1,000 mcg Escitalopram Oxalate (Lexapro -) 10 mg PO DAILY [facility] Last Admin: 04/21/17 11:51 Dose: 10 mg Fluticasone Propionate (Flonase -) 1 spray NS DAILY [facility] Last Admin: 04/21/17 11:51 Dose: 1 spray Furosemide (Lasix -) 20 mg PO DAILY [facility] Last Admin: 04/21/17 11:51 Dose: 20 mg Hydralazine HCl (Apresoline -) 10 mg PO BID [facility] Last Admin: 04/21/17 11:52 Dose: 10 mg Levothyroxine Sodium (Synthroid -) 100 mcg PO DAILY@0700 [facility] Last Admin: 04/21/17 06:15 Dose: 100 mcg Losartan Potassium (Cozaar -) 100 mg PO DAILY [facility] Last Admin: 04/21/17 11:50 Dose: 100 mg Pantoprazole Sodium (Protonix -) 40 mg PO DAILY [facility] Last Admin: 04/21/17 11:52 Dose: 40 mg Polyethylene Glycol (Miralax (For Daily Use) -) 17 gm PO DAILY [facility] Last Admin: 04/21/17 11:51 Dose: 17 gm - Objective Vital Signs: Vital Signs Temperature 97.5 F L 04/21/17 06:00 Pulse Rate 56 L 04/21/17 06:00 Respiratory Rate 20 04/21/17 06:00 Blood Pressure 151/51 04/21/17 06:00 O2 Sat by Pulse Oximetry (%) 95 04/20/17 21:00 Constitutional: Yes: Well Nourished, No Distress, Calm Cardiovascular: Yes: Regular Rate and Rhythm. No: Gallop, Murmur, Rub Respiratory: Yes: Regular, SOB, Wheezes. No: CTA Bilaterally, Rales, Rhonchi, Tachypnea Gastrointestinal: Yes: Normal Bowel Sounds, Soft. No: Distention, Tenderness Extremities: Yes: WNL Edema: No Labs: CBC, BMP 04/21/17 05:35 04/21/17 05:35 Problem List - Problems (1) Acute on chronic diastolic (congestive) heart failure Code(s): I50.33 - ACUTE ON CHRONIC DIASTOLIC (CONGESTIVE) HEART FAILURE (2) Hypertensive emergency Code(s): I16.1 - HYPERTENSIVE EMERGENCY (3) Coronary artery disease Code(s): I25.10 - ATHSCL HEART DISEASE OF [place] CORONARY ARTERY W/O ANG PCTRS Qualifiers: Coronary Disease-Associated Artery/Lesion type: [place] artery [place] vs. transplanted heart: [place] heart Associated angina: without angina Qualified Code(s): I25.10 - Atherosclerotic heart disease of [place] coronary artery without angina pectoris (4) Hyperlipidemia Code(s): E78.5 - HYPERLIPIDEMIA, UNSPECIFIED Qualifiers: Hyperlipidemia type: Pure hypercholesterolemia (5) Reflux esophagitis Code(s): K21.0 - GASTRO-ESOPHAGEAL REFLUX DISEASE WITH ESOPHAGITIS (6) Emphysema of lung Code(s): J43.9 - EMPHYSEMA, UNSPECIFIED Qualifiers: Emphysema type: unspecified Qualified Code(s): J43.9 - Emphysema, unspecified (7) Hypothyroid Code(s): E03.9 - HYPOTHYROIDISM, UNSPECIFIED Assessment/Plan (1) Acute on chronic diastolic (congestive) heart failure Assessment/Plan: -at dry weight -stop IV lasix, place back on home dose -appreciate cardiology assistance Code(s): I50.33 - ACUTE ON CHRONIC DIASTOLIC (CONGESTIVE) HEART FAILURE (2) Hypertensive emergency Assessment/Plan: -resolved -decrease hydralazine as lowered blood pressure too rapidly Code(s): I16.1 - HYPERTENSIVE EMERGENCY (3) Coronary artery disease Assessment/Plan: -no chest pain -continue home regimen -cardiac enzymes x3 negative Code(s): I25.10 - ATHSCL HEART DISEASE OF [place] CORONARY ARTERY W/O ANG PCTRS Qualifiers: Coronary Disease-Associated Artery/Lesion type: [place] artery [place] vs. transplanted heart: [place] heart Associated angina: without angina Qualified Code(s): I25.10 - Atherosclerotic heart disease of [place] coronary artery without angina pectoris (4) Hyperlipidemia Assessment/Plan: -continue statin Code(s): E78.5 - HYPERLIPIDEMIA, UNSPECIFIED Qualifiers: Hyperlipidemia type: Pure hypercholesterolemia (5) Reflux esophagitis Assessment/Plan: -continue PPI Code(s): K21.0 - GASTRO-ESOPHAGEAL REFLUX DISEASE WITH ESOPHAGITIS (6) Emphysema of lung Assessment/Plan: -consult pulmonary -patient significantly short of breath with minimal exertion Code(s): J43.9 - EMPHYSEMA, UNSPECIFIED Qualifiers: Emphysema type: unspecified Qualified Code(s): J43.9 - Emphysema, unspecified (7) Hypothyroid Assessment/Plan: -continue synthroid -TSH and FT4 within normal limits Code(s): E03.9 - HYPOTHYROIDISM, UNSPECIFIED
--- NOTE | 2017-04-21 13:29 | PN ---
Progress Note (short form) - Note Progress Note: PULMONARY CONSULTATION DICTATED 04/21/17 IMP HYPERTENSIVE URGENCY DIASTOICC HF DYSPNEA LIKELY SECONDARY TO HF HTN H/O URIs PLAN BP CONTROL INHALED BRONCHODILATORS DIURETICS O2 PRN CHECK O2 SAT POST EXERCISE DR JANSEN Problem List - Problems (1) Congestive cardiac failure Code(s): I50.9 - HEART FAILURE, UNSPECIFIED Qualifiers: Congestive heart failure type: unspecified congestive heart failure type Congestive heart failure chronicity: unspecified congestive heart failure chronicity Qualified Code(s): I50.9 - Heart failure, unspecified (2) Hypothyroid Code(s): E03.9 - HYPOTHYROIDISM, UNSPECIFIED (3) Shortness of breath Code(s): R06.02 - SHORTNESS OF BREATH (4) Acute on chronic diastolic (congestive) heart failure Code(s): I50.33 - ACUTE ON CHRONIC DIASTOLIC (CONGESTIVE) HEART FAILURE (5) Coronary artery disease Code(s): I25.10 - ATHSCL HEART DISEASE OF [place] CORONARY ARTERY W/O ANG PCTRS Qualifiers: Coronary Disease-Associated Artery/Lesion type: [place] artery [place] vs. transplanted heart: [place] heart Associated angina: without angina Qualified Code(s): I25.10 - Atherosclerotic heart disease of [place] coronary artery without angina pectoris (6) Dyspnea Code(s): R06.00 - DYSPNEA, UNSPECIFIED Qualifiers: Dyspnea type: dyspnea on exertion Qualified Code(s): R06.09 - Other forms of dyspnea (7) Edema Code(s): R60.9 - EDEMA, UNSPECIFIED Qualifiers: Edema type: localized Qualified Code(s): R60.0 - Localized edema (8) H/O heart artery stent Code(s): Z95.5 - PRESENCE OF CORONARY ANGIOPLASTY IMPLANT AND GRAFT (9) Hyperlipidemia Code(s): E78.5 - HYPERLIPIDEMIA, UNSPECIFIED Qualifiers: Hyperlipidemia type: Pure hypercholesterolemia (10) Hypertension Code(s): I10 - ESSENTIAL (PRIMARY) HYPERTENSION Qualifiers: Hypertension type: essential hypertension Qualified Code(s): I10 - Essential (primary) hypertension (11) Hypertensive urgency Code(s): I16.0 - HYPERTENSIVE URGENCY
[2017-04-21] MEDS ORDERED: POTASSIUM CHLORIDE TABS 20 MEQ TABLET.ER (FP) PO ONE (20:00)
[2017-04-21] MEDS: ALBUTEROL SO4 0.083% IH SOL 2.5 MG/3 ML VIAL.NEB. NEB PRN (20:20)
[2017-04-21] MEDS: ATORVASTATIN CA 40 MG TABLET (FP) PO SCH (21:15)
--- NOTE | 2017-04-21 22:14 | CONS ---
DATE OF CONSULTATION: 04/21/2017 PULMONARY CONSULTATION REFERRING PHYSICIAN: Edison Shelby M.D. HISTORY OF PRESENT ILLNESS: The patient is an 81-year-old white female known to me from previous hospitalization in the past, ASHD status post stent in 2007, hypertension, hypothyroidism, hyperlipidemia, chronic lower extremity edema with venous insufficiency, chronic URIs, who is a nonsmoker but has had extensive exposure to second-hand smoke, admitted to [facility] is known to be hypertensive in PMD's office. Patient was sent to the emergency room with hypertensive urgency. She was admitted to telemetry unit for further monitoring. Patient is also complaining of 6-month history of progressive increasing shortness of breath and dyspnea on exertion. She underwent a PFT approximately a week ago which revealed normal spirometry and reduced diffusion capacity. She has no history of DVT or PE in the past. She denies any history of occupational exposure to chemicals or fumes. She has an occasional cough productive of clear sputum. Denies hemoptysis. She does state that she walks short distance and gets markedly dyspneic. She also states that she develops some chest heaviness with exertion. During the current hospitalization, she was evaluated by for cardiology consultation, felt that the patient most likely had acute diastolic CHF secondary to hypertensive urgency. The patient apparently recently underwent an echo in the ED which was unremarkable. PAST MEDICAL HISTORY: Again includes hypertension, hypothyroidism, ASHD status post PCI 2007 to LAD, lower extremity venous insufficiency, chronic URIs, hypertension, hyperlipidemia. REVIEW OF SYSTEMS: Positive dyspnea. Positive cough. Positive chest heaviness. Positive dyspnea on exertion short distances. No chest pain. No hemoptysis. No fevers. No chills. No abdominal pain. Positive lower extremity edema. CURRENT MEDICATIONS: Include Symbicort 80/4.5, Tylenol, Cozaar, Mylanta, lexapro, albuterol, Miralax, Flonase, Apresoline, Lipitor, Lasix, aspirin, Protonix, Synthroid, vitamin B12. PHYSICAL EXAMINATION: General: The patient is a well-developed, well-nourished female awake, alert, dyspneic in no acute distress. Vital signs: She is currently afebrile. Blood pressure 151/51, respiratory rate 20, heart rate 56. O2 saturation 95% on room air. HEENT: Head is normocephalic, atraumatic. Neck: Supple. Heart: Regular. S1, S2. Chest: Diminished breath sounds bilaterally. Abdomen: Soft. Bowel sounds positive. Extremities: Bilateral lower extremity edema. LABORATORY: WBC is 9.8, hemoglobin 10.5, hematocrit 33.7, platelet count of 278,000. INR is 1.13. BUN 35, creatinine 1.1. Chest CT reveals no masses but chronic changes bilaterally consistent with chronic lung disease. IMPRESSION: 1. Hypertensive urgency. 2. Diastolic congestive heart failure, diastolic secondary to acute hypertensive urgency. 3. Dyspnea. 4. Chronic obstructive pulmonary disease. Although patient has normal spirometry but reduced diffusion capacity, includes possible pulmonary vascular disease. 5. Hypertension. 6. Atherosclerotic heart disease . PLAN: Continue inhaled bronchodilators. Supplemental O2. Check O2 saturation at rest and post exercise on room air. Determine whether patient has become desaturated, see if she requires home O2. Continue BP control. JOSEFA JANSEN M.D. [id number]
[2017-04-22] MEDS: LEVOTHYROXINE NA 100 MCG TABLET (FP) PO SCH (06:35)
[2017-04-22 07:33] LABS: BASOPHIL 0.5 % (0-2.0); EOSINOPHIL 1.3 % (0-4.5); MCH 22.9 pg (25.7-33.7); MCHC 31.5 g/dl (32.0-36.0); MEAN CELL VOLUME 72.8 fl (80-96); PLATELET COUNT 238 K/MM3 (134-434); RDW 19.7 % (11.6-15.6); WHITE BLOOD COUNT 8.2 K/mm3 (4.0-10.0)
[2017-04-22 07:37] LABS: ANION GAP 8 (8-16); CALCIUM 8.9 mg/dL (8.5-10.1); CO2 27 mmol/L (21-32); GLUCOSE,RANDOM 87 mg/dL (74-106); MAGNESIUM 2.5 mg/dL (1.8-2.4); PHOSPHOROUS 2.9 mg/dL (2.5-4.9)
[2017-04-22] MEDS: hydrALAZINE HCL 10 MG TABLET PO SCH (08:15)
[2017-04-22] MEDS: LOSARTAN POTASSIUM 50 MG TABLET (FP) PO SCH (08:15)
[2017-04-22] MEDS: ASPIRIN 81 MG CHEWABLE TABLETS PO SCH (09:28)
[2017-04-22] MEDS: FUROSEMIDE 20 MG TABLET (FP) PO SCH (09:28)
[2017-04-22] MEDS: PANTOPRAZOLE 40 MG TABLET (FP) PO SCH (09:28)
[2017-04-22] MEDS: ESCITALOPRAM OXALATE 10 MG TABLET (FP) PO SCH (09:28)
[2017-04-22] MEDS: CYANOCOBALAMIN 1,000 MCG TABLET (FP) PO SCH (09:28)
[2017-04-22] MEDS: BUDESONIDE/FORMETEROL FUMARATE 80/4.5 mcg INHALER IH SCH ×2 (09:30→21:11)
[2017-04-22] MEDS: POLYETHYLENE GLYCOL 3350 119 GM BTL PO SCH (09:30)
[2017-04-22] MEDS: FLUTICASONE PROP 0.05% 16 GM NASAL SPRAY NS SCH (09:30)
[2017-04-22] MEDS: hydrALAZINE HCL 25 MG TABLET (FP) PO SCH ×3 (09:55→21:08)
--- NOTE | 2017-04-22 11:06 | PN ---
Progress Note (short form) - Note Progress Note: s: no cp palps dizzy; still with mild sob o: Vital Signs Period Temp Pulse Resp BP Sys/Rios Pulse Ox Last 24 Hr 97.3 F-99.2 F 54-99 16-20 125-195/44-80 92-97 nad no jvd rrr s1s2 no mrg cta bl nl eff aaox3 no le e/c/c abd nt nd pos bs no jaundiced diaphoresis Current Medications Generic Name Dose Route Start Last Admin Trade Name Freq PRN Reason Stop Dose Admin Acetaminophen 650 mg 04/19/17 17:15 04/20/17 23:04 Tylenol - PO 650 mg Q4H PRN Administration FEVER OR PAIN Al Hydroxide/Mg Hydroxide 30 ml 04/20/17 14:05 Mylanta Oral Suspension - PO Q6HPO PRN INDIGESTION Albuterol Sulfate 1 amp 04/20/17 20:32 04/21/17 20:20 Ventolin 0.083% Nebulizer Soln - NEB 1 amp Q6H PRN Administration SHORT OF BREATH/WHEEZING Aspirin 81 mg 04/20/17 10:00 04/22/17 09:28 Asa - PO 81 mg DAILY [facility] Administration Atorvastatin Calcium 40 mg 04/19/17 22:00 04/21/17 21:15 Lipitor - PO 40 mg HS [facility] Administration Budesonide/Formoterol Fumarate 2 puff 04/20/17 13:54 04/22/17 09:30 Symbicort 80/4.5mcg - IH 2 puff BID [facility] Administration Cyanocobalamin 1,000 mcg 04/20/17 10:00 04/22/17 09:28 Vitamin B12 - PO 1,000 mcg DAILY [facility] Administration Escitalopram Oxalate 10 mg 04/20/17 10:00 04/22/17 09:28 Lexapro - PO 10 mg DAILY [facility] Administration Fluticasone Propionate 1 spray 04/21/17 10:00 04/22/17 09:30 Flonase - NS 1 spray DAILY [facility] Administration Furosemide 20 mg 04/21/17 10:00 04/22/17 09:28 Lasix - PO 20 mg DAILY [facility] Administration Hydralazine HCl 25 mg 04/22/17 10:00 04/22/17 09:55 Apresoline - PO Not Given BID [facility] Levothyroxine Sodium 100 mcg 04/20/17 07:00 04/22/17 06:35 Synthroid - PO 100 mcg DAILY@0700 [facility] Administration Losartan Potassium 100 mg 04/20/17 10:00 04/22/17 08:15 Cozaar - PO 100 mg DAILY [facility] Administration Pantoprazole Sodium 40 mg 04/20/17 10:00 04/22/17 09:28 Protonix - PO 40 mg DAILY [facility] Administration Polyethylene Glycol 17 gm 04/20/17 10:00 04/22/17 09:30 Miralax (For Daily Use) - PO 17 gm DAILY [facility] Administration CBC, BMP 04/22/17 05:35 04/22/17 05:35 echo 03/2017: nl lv/rv, mild ar/mr mibi 03/2017: nl mpi, nl lvef ecg 04/19/17: sinus indira, pacs, 1st deg avb, nl qtc, no ischemic changes cxr: no chf tele: sr a/p: 81 f hx htn, hld, hypothyroid, cad s/p pci 2007 (lad), le edema/venous insuff, chronic URIs sent to er by pmd for htn and sob. sob, acute diastolic chf likely secondary to hypertensive emergency: -sob and elevated bnp likely due to hypertensive emergency causing dchf -no signs acs -cont cozaar. she is indira with bystolic so stopped here. she had worse le edema with ccb so will avoid. Started hydralazine 50 bid but then had bp on lower side so will decrease to 10 bid and titrate up if needed-->increase to 25 bid today 04/22 -after iv lasix here bun/cr bumped and she does not appear vol overloaded now so will change back to home po lasix 20 qd -her remaining sob/herr is a chronic symptom for her, may be have been exacerbated by htn emergency, but otherwise does not appear cardiac in etiology , pulm evaluating as well -recent echo and mibi unremarkable le edema/venous insuff: -stable, no sig le edema currently -resumed home lasix 20 po qd htn: -plan as above hld: -cont statin cad s/p remote pci: -stable, no angina, no signs acs -ce's neg x3, ecg w/o ischemic changes -recent mibi and echo unremarkable -cont asa, statin, arb -stopped bb due to bradycardia
[2017-04-22] MEDS: ACETAMINOPHEN 325 MG TABLET (FP) PO PRN (12:19)
--- NOTE | 2017-04-22 12:37 | PN ---
Progress Note (short form) - Note Progress Note: PULMONARY Still short of breath with minimal exertion. +nonproductive cough and wheezing. No fevers or chills. Last Vital Signs Temp Pulse Resp BP Pulse Ox 98.2 F 58 L 16 174/70 97 04/22/17 08:15 04/22/17 12:21 04/22/17 12:21 04/22/17 12:21 04/22/17 09:40 Gen: tachypneic with speaking Heart: RRR Lung: scattered rhonchi Abd: soft, nontender Ext: no edema CBC, BMP 04/22/17 05:35 04/22/17 05:35 Active Medications Acetaminophen (Tylenol -) 650 mg PO Q4H PRN PRN Reason: FEVER OR PAIN Last Admin: 04/22/17 12:19 Dose: 650 mg Al Hydroxide/Mg Hydroxide (Mylanta Oral Suspension -) 30 ml PO Q6HPO PRN PRN Reason: INDIGESTION Albuterol Sulfate (Ventolin 0.083% Nebulizer Soln -) 1 amp NEB Q6H PRN PRN Reason: SHORT OF BREATH/WHEEZING Last Admin: 04/21/17 20:20 Dose: 1 amp Aspirin (Asa -) 81 mg PO DAILY [facility] Last Admin: 04/22/17 09:28 Dose: 81 mg Atorvastatin Calcium (Lipitor -) 40 mg PO HS [facility] Last Admin: 04/21/17 21:15 Dose: 40 mg Budesonide/Formoterol Fumarate (Symbicort 80/4.5mcg -) 2 puff IH BID [facility] Last Admin: 04/22/17 09:30 Dose: 2 puff Cyanocobalamin (Vitamin B12 -) 1,000 mcg PO DAILY [facility] Last Admin: 04/22/17 09:28 Dose: 1,000 mcg Escitalopram Oxalate (Lexapro -) 10 mg PO DAILY [facility] Last Admin: 04/22/17 09:28 Dose: 10 mg Fluticasone Propionate (Flonase -) 1 spray NS DAILY [facility] Last Admin: 04/22/17 09:30 Dose: 1 spray Furosemide (Lasix -) 20 mg PO DAILY [facility] Last Admin: 04/22/17 09:28 Dose: 20 mg Hydralazine HCl (Apresoline -) 25 mg PO BID [facility] Last Admin: 04/22/17 12:19 Dose: 25 mg Levothyroxine Sodium (Synthroid -) 100 mcg PO DAILY@0700 [facility] Last Admin: 04/22/17 06:35 Dose: 100 mcg Losartan Potassium (Cozaar -) 100 mg PO DAILY [facility] Last Admin: 04/22/17 08:15 Dose: 100 mg Pantoprazole Sodium (Protonix -) 40 mg PO DAILY [facility] Last Admin: 04/22/17 09:28 Dose: 40 mg Polyethylene Glycol (Miralax (For Daily Use) -) 17 gm PO DAILY [facility] Last Admin: 04/22/17 09:30 Dose: 17 gm A/P Hypertensive Urgency LV Diastolic Dysfunction h/o URIs r/o Chronic Bronchitis - recent PFTs without evidence of obstruction but with decreased diffusing capacity - no pulmonary HTN seen on last echocardiogram - CT chest with thickened airways suggestive of chronic bronchitis and pt reports significant 2nd hand smoke exposure - will start trial of steroids and add antimuscarinic agent and reassess - will need outpt f/u - DVT prophylaxis
--- NOTE | 2017-04-22 12:42 | PN ---
Progress Note, Physician Chief Complaint: Ms Dorantes complains of shortness of breath, unchanged. No cp or n/v. - Current Medication List Current Medications: Active Medications Acetaminophen (Tylenol -) 650 mg PO Q4H PRN PRN Reason: FEVER OR PAIN Last Admin: 04/22/17 12:19 Dose: 650 mg Al Hydroxide/Mg Hydroxide (Mylanta Oral Suspension -) 30 ml PO Q6HPO PRN PRN Reason: INDIGESTION Albuterol Sulfate (Ventolin 0.083% Nebulizer Soln -) 1 amp NEB Q6H PRN PRN Reason: SHORT OF BREATH/WHEEZING Last Admin: 04/21/17 20:20 Dose: 1 amp Albuterol/Ipratropium (Duoneb -) 1 amp NEB TIDR [facility] Aspirin (Asa -) 81 mg PO DAILY [facility] Last Admin: 04/22/17 09:28 Dose: 81 mg Atorvastatin Calcium (Lipitor -) 40 mg PO HS [facility] Last Admin: 04/21/17 21:15 Dose: 40 mg Budesonide/Formoterol Fumarate (Symbicort 80/4.5mcg -) 2 puff IH BID [facility] Last Admin: 04/22/17 09:30 Dose: 2 puff Cyanocobalamin (Vitamin B12 -) 1,000 mcg PO DAILY [facility] Last Admin: 04/22/17 09:28 Dose: 1,000 mcg Escitalopram Oxalate (Lexapro -) 10 mg PO DAILY [facility] Last Admin: 04/22/17 09:28 Dose: 10 mg Fluticasone Propionate (Flonase -) 1 spray NS DAILY [facility] Last Admin: 04/22/17 09:30 Dose: 1 spray Furosemide (Lasix -) 20 mg PO DAILY [facility] Last Admin: 04/22/17 09:28 Dose: 20 mg Hydralazine HCl (Apresoline -) 25 mg PO BID [facility] Last Admin: 04/22/17 12:19 Dose: 25 mg Levothyroxine Sodium (Synthroid -) 100 mcg PO DAILY@0700 [facility] Last Admin: 04/22/17 06:35 Dose: 100 mcg Losartan Potassium (Cozaar -) 100 mg PO DAILY [facility] Last Admin: 04/22/17 08:15 Dose: 100 mg Methylprednisolone Sodium Succinate (Solu-Medrol -) 40 mg IVPB Q8H-IV [facility] Pantoprazole Sodium (Protonix -) 40 mg PO DAILY [facility] Last Admin: 04/22/17 09:28 Dose: 40 mg Polyethylene Glycol (Miralax (For Daily Use) -) 17 gm PO DAILY [facility] Last Admin: 04/22/17 09:30 Dose: 17 gm - Objective Vital Signs: Vital Signs Temperature 98.2 F 04/22/17 08:15 Pulse Rate 58 L 04/22/17 12:21 Respiratory Rate 16 04/22/17 12:21 Blood Pressure 174/70 04/22/17 12:21 O2 Sat by Pulse Oximetry (%) 97 04/22/17 09:40 Constitutional: Yes: Well Nourished, No Distress, Calm Cardiovascular: Yes: Regular Rate and Rhythm. No: Gallop, Murmur, Rub Respiratory: Yes: Regular, CTA Bilaterally, On Nasal O2. No: Rales, Rhonchi, Wheezes Gastrointestinal: Yes: Normal Bowel Sounds, Soft. No: Distention, Tenderness Extremities: Yes: WNL Edema: No Labs: CBC, BMP 04/22/17 05:35 04/22/17 05:35 Problem List - Problems (1) Acute on chronic diastolic (congestive) heart failure Code(s): I50.33 - ACUTE ON CHRONIC DIASTOLIC (CONGESTIVE) HEART FAILURE (2) Hypertensive emergency Code(s): I16.1 - HYPERTENSIVE EMERGENCY (3) Coronary artery disease Code(s): I25.10 - ATHSCL HEART DISEASE OF [place] CORONARY ARTERY W/O ANG PCTRS Qualifiers: Coronary Disease-Associated Artery/Lesion type: [place] artery [place] vs. transplanted heart: [place] heart Associated angina: without angina Qualified Code(s): I25.10 - Atherosclerotic heart disease of [place] coronary artery without angina pectoris (4) Hyperlipidemia Code(s): E78.5 - HYPERLIPIDEMIA, UNSPECIFIED Qualifiers: Hyperlipidemia type: Pure hypercholesterolemia (5) Reflux esophagitis Code(s): K21.0 - GASTRO-ESOPHAGEAL REFLUX DISEASE WITH ESOPHAGITIS (6) Emphysema of lung Code(s): J43.9 - EMPHYSEMA, UNSPECIFIED Qualifiers: Emphysema type: unspecified Qualified Code(s): J43.9 - Emphysema, unspecified (7) Hypothyroid Code(s): E03.9 - HYPOTHYROIDISM, UNSPECIFIED Assessment/Plan (1) Acute on chronic diastolic (congestive) heart failure Assessment/Plan: -at dry weight -stop IV lasix, place back on home dose -appreciate cardiology assistance Code(s): I50.33 - ACUTE ON CHRONIC DIASTOLIC (CONGESTIVE) HEART FAILURE (2) Hypertensive emergency Assessment/Plan: -patient with episode of SBP in the 190s this am -hydralazine increase to 25mg bid -monitor Code(s): I16.1 - HYPERTENSIVE EMERGENCY (3) Coronary artery disease Assessment/Plan: -no chest pain -continue home regimen -cardiac enzymes x3 negative Code(s): I25.10 - ATHSCL HEART DISEASE OF [place] CORONARY ARTERY W/O ANG PCTRS Qualifiers: Coronary Disease-Associated Artery/Lesion type: [place] artery [place] vs. transplanted heart: [place] heart Associated angina: without angina Qualified Code(s): I25.10 - Atherosclerotic heart disease of [place] coronary artery without angina pectoris (4) Hyperlipidemia Assessment/Plan: -continue statin Code(s): E78.5 - HYPERLIPIDEMIA, UNSPECIFIED Qualifiers: Hyperlipidemia type: Pure hypercholesterolemia (5) Reflux esophagitis Assessment/Plan: -continue PPI Code(s): K21.0 - GASTRO-ESOPHAGEAL REFLUX DISEASE WITH ESOPHAGITIS (6) Emphysema of lung Assessment/Plan: -pulmonary consulted -started solumedrol -monitor for improvement Code(s): J43.9 - EMPHYSEMA, UNSPECIFIED Qualifiers: Emphysema type: unspecified Qualified Code(s): J43.9 - Emphysema, unspecified (7) Hypothyroid Assessment/Plan: -continue synthroid -TSH and FT4 within normal limits Code(s): E03.9 - HYPOTHYROIDISM, UNSPECIFIED Dispo -now on solumedrol -also RT noted patient complained of weakness with walking -PT consult -possible SNF placement discussed, patient says has family assistance and would prefer to have outpatient PT -with starting solumedrol, weakness may worsen -continue to monitor, SNF vs outpt PT with family assistance when ready for discharge
[2017-04-22] MEDS: ALBUTEROL SO4 2.5/IPRATROPIUM 0.5 INH SOL 3 ML VIAL.NEB. NEB SCH ×2 (13:41→22:01)
[2017-04-22] MEDS: methylPREDNISolone NA SUCC 40 MG/1 ML VIAL IVPB SCH ×2 (14:12→17:58)
[2017-04-22] MEDS ORDERED: PT OWN MED DRAWER 7, Y5N ONE (20:35)
[2017-04-22] MEDS: ATORVASTATIN CA 40 MG TABLET (FP) PO SCH (21:08)
[2017-04-23] MEDS: methylPREDNISolone NA SUCC 40 MG/1 ML VIAL IVPB SCH ×3 (03:16→17:30)
[2017-04-23] MEDS: LEVOTHYROXINE NA 100 MCG TABLET (FP) PO SCH (06:18)
[2017-04-23] MEDS: ALBUTEROL SO4 2.5/IPRATROPIUM 0.5 INH SOL 3 ML VIAL.NEB. NEB SCH (06:25)
[2017-04-23] MEDS: ACETAMINOPHEN 325 MG TABLET (FP) PO PRN (08:07)
[2017-04-23 08:13] LABS: BASOPHIL 0.1 % (0-2.0); MCH 23.3 pg (25.7-33.7); MCHC 32.2 g/dl (32.0-36.0); MEAN CELL VOLUME 72.5 fl (80-96); MEAN PLT VOLUME 8.9 fl (7.5-11.1); NEUTROPHILS 89.4 % (42.8-82.8); PLATELET COUNT 238 K/MM3 (134-434); RDW 18.8 % (11.6-15.6); WHITE BLOOD COUNT 9.1 K/mm3 (4.0-10.0)
[2017-04-23 08:14] LABS: ANION GAP 8 (8-16); CALCIUM 9.4 mg/dL (8.5-10.1); CO2 25 mmol/L (21-32); GLUCOSE,RANDOM 130 mg/dL (74-106); MAGNESIUM 2.3 mg/dL (1.8-2.4); PHOSPHOROUS 2.3 mg/dL (2.5-4.9)
[2017-04-23] MEDS: CYANOCOBALAMIN 1,000 MCG TABLET (FP) PO SCH (09:42)
[2017-04-23] MEDS: hydrALAZINE HCL 25 MG TABLET (FP) PO SCH ×2 (09:42→21:32)
[2017-04-23] MEDS: ESCITALOPRAM OXALATE 10 MG TABLET (FP) PO SCH (09:42)
[2017-04-23] MEDS: PANTOPRAZOLE 40 MG TABLET (FP) PO SCH (09:42)
[2017-04-23] MEDS: FUROSEMIDE 20 MG TABLET (FP) PO SCH (09:42)
[2017-04-23] MEDS: BUDESONIDE/FORMETEROL FUMARATE 80/4.5 mcg INHALER IH SCH ×2 (09:43→21:34)
[2017-04-23] MEDS: ASPIRIN 81 MG CHEWABLE TABLETS PO SCH (09:43)
[2017-04-23] MEDS: FLUTICASONE PROP 0.05% 16 GM NASAL SPRAY NS SCH (09:44)
[2017-04-23] MEDS: POLYETHYLENE GLYCOL 3350 119 GM BTL PO SCH (09:44)
[2017-04-23] MEDS: LOSARTAN POTASSIUM 50 MG TABLET (FP) PO SCH (09:47)
--- NOTE | 2017-04-23 10:11 | PN ---
Progress Note (short form) - Note Progress Note: s: no cp palps dizzy; still with mild sob o: Vital Signs Period Temp Pulse Resp BP Sys/Rios Pulse Ox Last 24 Hr 97.5 F-99.4 F 58-88 16-20 129-174/52-79 95 nad no jvd rrr s1s2 no mrg cta bl nl eff aaox3 no le e/c/c abd nt nd pos bs no jaundiced diaphoresis Current Medications Generic Name Dose Route Start Last Admin Trade Name Freq PRN Reason Stop Dose Admin Acetaminophen 650 mg 04/19/17 17:15 04/23/17 08:07 Tylenol - PO 650 mg Q4H PRN Administration FEVER OR PAIN Al Hydroxide/Mg Hydroxide 30 ml 04/20/17 14:05 Mylanta Oral Suspension - PO Q6HPO PRN INDIGESTION Albuterol Sulfate 1 amp 04/20/17 20:32 04/21/17 20:20 Ventolin 0.083% Nebulizer Soln - NEB 1 amp Q6H PRN Administration SHORT OF BREATH/WHEEZING Albuterol/Ipratropium 1 amp 04/22/17 14:00 04/23/17 06:25 Duoneb - NEB 1 amp TIDR [facility] Administration Aspirin 81 mg 04/20/17 10:00 04/23/17 09:43 Asa - PO 81 mg DAILY [facility] Administration Atorvastatin Calcium 40 mg 04/19/17 22:00 04/22/17 21:08 Lipitor - PO 40 mg HS [facility] Administration Budesonide/Formoterol Fumarate 2 puff 04/20/17 13:54 04/23/17 09:43 Symbicort 80/4.5mcg - IH 2 puff BID [facility] Administration Cyanocobalamin 1,000 mcg 04/20/17 10:00 04/23/17 09:42 Vitamin B12 - PO 1,000 mcg DAILY [facility] Administration Escitalopram Oxalate 10 mg 04/20/17 10:00 04/23/17 09:42 Lexapro - PO 10 mg DAILY [facility] Administration Fluticasone Propionate 1 spray 04/21/17 10:00 04/23/17 09:44 Flonase - NS 1 spray DAILY [facility] Administration Furosemide 20 mg 04/21/17 10:00 04/23/17 09:42 Lasix - PO 20 mg DAILY [facility] Administration Hydralazine HCl 25 mg 04/22/17 10:00 04/23/17 09:42 Apresoline - PO 25 mg BID [facility] Administration Levothyroxine Sodium 100 mcg 04/20/17 07:00 04/23/17 06:18 Synthroid - PO 100 mcg DAILY@0700 [facility] Administration Losartan Potassium 100 mg 04/20/17 10:00 04/23/17 09:47 Cozaar - PO 100 mg DAILY [facility] Administration Methylprednisolone Sodium Succinate 40 mg 04/22/17 12:45 04/23/17 09:41 Solu-Medrol - IVPB 40 mg Q8H-IV [facility] Administration Pantoprazole Sodium 40 mg 04/20/17 10:00 04/23/17 09:42 Protonix - PO 40 mg DAILY [facility] Administration Polyethylene Glycol 17 gm 04/20/17 10:00 04/23/17 09:44 Miralax (For Daily Use) - PO 17 gm DAILY [facility] Administration Vital Signs Period Temp Pulse Resp BP Sys/Rios Pulse Ox Last 24 Hr 97.5 F-99.4 F 58-88 16-20 129-174/52-79 95 echo 03/2017: nl lv/rv, mild ar/mr mibi 03/2017: nl mpi, nl lvef ecg 04/19/17: sinus indira, pacs, 1st deg avb, nl qtc, no ischemic changes cxr: no chf tele: sr a/p: 81 f hx htn, hld, hypothyroid, cad s/p pci 2007 (lad), le edema/venous insuff, chronic URIs sent to er by pmd for htn and sob. sob, acute diastolic chf likely secondary to hypertensive emergency: -sob and elevated bnp likely due to hypertensive emergency causing dchf -no signs acs -cont cozaar. she is indira with bystolic so stopped here. she had worse le edema with ccb so will avoid. Started hydralazine 50 bid but then had bp on lower side so will decrease to 10 bid and titrate up if needed-->increased to 25 bid 04/22, bp improved so far -after iv lasix here bun/cr bumped and she does not appear vol overloaded so changed back to home po lasix 20 qd -her remaining sob/herr is a chronic symptom for her, may be have been exacerbated by htn emergency, but otherwise does not appear cardiac in etiology , pulm evaluating as well and is giving empiric trial of steroids for possible copd -recent echo and mibi unremarkable le edema/venous insuff: -stable, no sig le edema currently -resumed home lasix 20 po qd htn: -plan as above hld: -cont statin cad s/p remote pci: -stable, no angina, no signs acs -ce's neg x3, ecg w/o ischemic changes -recent mibi and echo unremarkable -cont asa, statin, arb -stopped bb due to bradycardia
--- NOTE | 2017-04-23 10:53 | PN ---
Progress Note, Physician History of Present Illness: PULMONARY ALERT,DYSPNEIC AT REST ANXIOUS,FEELS WORSE AFTER BRONCHODILATORS. - Current Medication List Current Medications: Active Medications Acetaminophen (Tylenol -) 650 mg PO Q4H PRN PRN Reason: FEVER OR PAIN Last Admin: 04/23/17 08:07 Dose: 650 mg Al Hydroxide/Mg Hydroxide (Mylanta Oral Suspension -) 30 ml PO Q6HPO PRN PRN Reason: INDIGESTION Albuterol Sulfate (Ventolin 0.083% Nebulizer Soln -) 1 amp NEB Q6H PRN PRN Reason: SHORT OF BREATH/WHEEZING Last Admin: 04/21/17 20:20 Dose: 1 amp Albuterol/Ipratropium (Duoneb -) 1 amp NEB TIDR [facility] Last Admin: 04/23/17 06:25 Dose: 1 amp Aspirin (Asa -) 81 mg PO DAILY [facility] Last Admin: 04/23/17 09:43 Dose: 81 mg Atorvastatin Calcium (Lipitor -) 40 mg PO HS [facility] Last Admin: 04/22/17 21:08 Dose: 40 mg Budesonide/Formoterol Fumarate (Symbicort 80/4.5mcg -) 2 puff IH BID [facility] Last Admin: 04/23/17 09:43 Dose: 2 puff Cyanocobalamin (Vitamin B12 -) 1,000 mcg PO DAILY [facility] Last Admin: 04/23/17 09:42 Dose: 1,000 mcg Escitalopram Oxalate (Lexapro -) 10 mg PO DAILY [facility] Last Admin: 04/23/17 09:42 Dose: 10 mg Fluticasone Propionate (Flonase -) 1 spray NS DAILY [facility] Last Admin: 04/23/17 09:44 Dose: 1 spray Furosemide (Lasix -) 20 mg PO DAILY [facility] Last Admin: 04/23/17 09:42 Dose: 20 mg Hydralazine HCl (Apresoline -) 25 mg PO BID [facility] Last Admin: 04/23/17 09:42 Dose: 25 mg Levothyroxine Sodium (Synthroid -) 100 mcg PO DAILY@0700 [facility] Last Admin: 04/23/17 06:18 Dose: 100 mcg Losartan Potassium (Cozaar -) 100 mg PO DAILY [facility] Last Admin: 04/23/17 09:47 Dose: 100 mg Methylprednisolone Sodium Succinate (Solu-Medrol -) 40 mg IVPB Q8H-IV [facility] Last Admin: 04/23/17 09:41 Dose: 40 mg Pantoprazole Sodium (Protonix -) 40 mg PO DAILY [facility] Last Admin: 04/23/17 09:42 Dose: 40 mg Polyethylene Glycol (Miralax (For Daily Use) -) 17 gm PO DAILY [facility] Last Admin: 04/23/17 09:44 Dose: 17 gm - Objective Vital Signs: Vital Signs Temperature 98.8 F 04/23/17 08:20 Pulse Rate 88 04/23/17 08:20 Respiratory Rate 16 04/23/17 08:20 Blood Pressure 152/72 04/23/17 08:20 O2 Sat by Pulse Oximetry (%) 95 04/23/17 09:00 Constitutional: Yes: Well Nourished, Anxious Eyes: Yes: WNL HENT: Yes: WNL Neck: Yes: WNL Cardiovascular: Yes: Regular Rate and Rhythm, S1, S2 Respiratory: Yes: Diminished Gastrointestinal: Yes: Normal Bowel Sounds, Soft Extremities: Yes: WNL Edema: No Labs: CBC, BMP 04/23/17 05:53 04/23/17 05:53 Problem List - Problems (1) Congestive cardiac failure Code(s): I50.9 - HEART FAILURE, UNSPECIFIED Qualifiers: Congestive heart failure type: unspecified congestive heart failure type Congestive heart failure chronicity: unspecified congestive heart failure chronicity Qualified Code(s): I50.9 - Heart failure, unspecified (2) Hypothyroid Code(s): E03.9 - HYPOTHYROIDISM, UNSPECIFIED (3) Shortness of breath Code(s): R06.02 - SHORTNESS OF BREATH (4) Acute on chronic diastolic (congestive) heart failure Code(s): I50.33 - ACUTE ON CHRONIC DIASTOLIC (CONGESTIVE) HEART FAILURE (5) Coronary artery disease Code(s): I25.10 - ATHSCL HEART DISEASE OF [place] CORONARY ARTERY W/O ANG PCTRS Qualifiers: Coronary Disease-Associated Artery/Lesion type: [place] artery [place] vs. transplanted heart: [place] heart Associated angina: without angina Qualified Code(s): I25.10 - Atherosclerotic heart disease of [place] coronary artery without angina pectoris (6) Dyspnea Code(s): R06.00 - DYSPNEA, UNSPECIFIED Qualifiers: Dyspnea type: dyspnea on exertion Qualified Code(s): R06.09 - Other forms of dyspnea (7) Edema Code(s): R60.9 - EDEMA, UNSPECIFIED Qualifiers: Edema type: localized Qualified Code(s): R60.0 - Localized edema (8) H/O heart artery stent Code(s): Z95.5 - PRESENCE OF CORONARY ANGIOPLASTY IMPLANT AND GRAFT (9) Hyperlipidemia Code(s): E78.5 - HYPERLIPIDEMIA, UNSPECIFIED Qualifiers: Hyperlipidemia type: Pure hypercholesterolemia (10) Hypertension Code(s): I10 - ESSENTIAL (PRIMARY) HYPERTENSION Qualifiers: Hypertension type: essential hypertension Qualified Code(s): I10 - Essential (primary) hypertension (11) Hypertensive urgency Code(s): I16.0 - HYPERTENSIVE URGENCY Assessment/Plan IMP HYPERTENSIVE URGENCY IMPROVED DIASTOLIC HF DYSPNEA LIKELY SECONDARY TO HF HTN H/O URIs + SECOND HAND SMOKE EXPOSURE PLAN BP CONTROL INHALED BRONCHODILATORS PRN STEROIDS DIURETICS O2 PRN CHECK O2 SAT POST EXERCISE DR JANSEN Problem List - Problems (1) Congestive cardiac failure Code(s): I50.9 - HEART FAILURE, UNSPECIFIED Qualifiers: Congestive heart failure type: unspecified congestive heart failure type Congestive heart failure chronicity: unspecified congestive heart failure chronicity Qualified Code(s): I50.9 - Heart failure, unspecified (2) Hypothyroid Code(s): E03.9 - HYPOTHYROIDISM, UNSPECIFIED (3) Shortness of breath Code(s): R06.02 - SHORTNESS OF BREATH (4) Acute on chronic diastolic (congestive) heart failure Code(s): I50.33 - ACUTE ON CHRONIC DIASTOLIC (CONGESTIVE) HEART FAILURE (5) Coronary artery disease Code(s): I25.10 - ATHSCL HEART DISEASE OF [place] CORONARY ARTERY W/O ANG PCTRS Qualifiers: Coronary Disease-Associated Artery/Lesion type: [place] artery [place] vs. transplanted heart: [place] heart Associated angina: without angina Qualified Code(s): I25.10 - Atherosclerotic heart disease of [place] coronary artery without angina pectoris (6) Dyspnea Code(s): R06.00 - DYSPNEA, UNSPECIFIED Qualifiers: Dyspnea type: dyspnea on exertion Qualified Code(s): R06.09 - Other forms of dyspnea (7) Edema Code(s): R60.9 - EDEMA, UNSPECIFIED Qualifiers: Edema type: localized Qualified Code(s): R60.0 - Localized edema (8) H/O heart artery stent Code(s): Z95.5 - PRESENCE OF CORONARY ANGIOPLASTY IMPLANT AND GRAFT (9) Hyperlipidemia Code(s): E78.5 - HYPERLIPIDEMIA, UNSPECIFIED Qualifiers: Hyperlipidemia type: Pure hypercholesterolemia (10) Hypertension Code(s): I10 - ESSENTIAL (PRIMARY) HYPERTENSION Qualifiers: Hypertension type: essential hypertension Qualified Code(s): I10 - Essential (primary) hypertension (11) Hypertensive urgency Code(s): I16.0 - HYPERTENSIVE URGENCY
[2017-04-23] MEDS: ALPRAZolam 0.25 MG TABLET PO SCH ×2 (12:12→21:32)
--- NOTE | 2017-04-23 12:14 | PN ---
Progress Note, Physician Chief Complaint: Ms Dorantes complains of shortness of breath, unchanged. No cp or n/v. - Current Medication List Current Medications: Active Medications Acetaminophen (Tylenol -) 650 mg PO Q4H PRN PRN Reason: FEVER OR PAIN Last Admin: 04/23/17 08:07 Dose: 650 mg Al Hydroxide/Mg Hydroxide (Mylanta Oral Suspension -) 30 ml PO Q6HPO PRN PRN Reason: INDIGESTION Albuterol Sulfate (Ventolin 0.083% Nebulizer Soln -) 1 amp NEB Q6H PRN PRN Reason: SHORT OF BREATH/WHEEZING Last Admin: 04/21/17 20:20 Dose: 1 amp Alprazolam (Xanax -) 0.25 mg PO TID [facility] Aspirin (Asa -) 81 mg PO DAILY [facility] Last Admin: 04/23/17 09:43 Dose: 81 mg Atorvastatin Calcium (Lipitor -) 40 mg PO HS [facility] Last Admin: 04/22/17 21:08 Dose: 40 mg Budesonide/Formoterol Fumarate (Symbicort 80/4.5mcg -) 2 puff IH BID [facility] Last Admin: 04/23/17 09:43 Dose: 2 puff Cyanocobalamin (Vitamin B12 -) 1,000 mcg PO DAILY [facility] Last Admin: 04/23/17 09:42 Dose: 1,000 mcg Escitalopram Oxalate (Lexapro -) 10 mg PO DAILY [facility] Last Admin: 04/23/17 09:42 Dose: 10 mg Fluticasone Propionate (Flonase -) 1 spray NS DAILY [facility] Last Admin: 04/23/17 09:44 Dose: 1 spray Furosemide (Lasix -) 20 mg PO DAILY [facility] Last Admin: 04/23/17 09:42 Dose: 20 mg Hydralazine HCl (Apresoline -) 25 mg PO BID [facility] Last Admin: 04/23/17 09:42 Dose: 25 mg Levothyroxine Sodium (Synthroid -) 100 mcg PO DAILY@0700 [facility] Last Admin: 04/23/17 06:18 Dose: 100 mcg Losartan Potassium (Cozaar -) 100 mg PO DAILY [facility] Last Admin: 04/23/17 09:47 Dose: 100 mg Methylprednisolone Sodium Succinate (Solu-Medrol -) 40 mg IVPB Q8H-IV [facility] Last Admin: 04/23/17 09:41 Dose: 40 mg Pantoprazole Sodium (Protonix -) 40 mg PO DAILY [facility] Last Admin: 04/23/17 09:42 Dose: 40 mg Polyethylene Glycol (Miralax (For Daily Use) -) 17 gm PO DAILY [facility] Last Admin: 04/23/17 09:44 Dose: 17 gm - Objective Vital Signs: Vital Signs Temperature 98.8 F 04/23/17 08:20 Pulse Rate 88 04/23/17 08:20 Respiratory Rate 16 04/23/17 08:20 Blood Pressure 152/72 04/23/17 08:20 O2 Sat by Pulse Oximetry (%) 95 04/23/17 09:00 Constitutional: Yes: Well Nourished, No Distress, Calm Cardiovascular: Yes: Regular Rate and Rhythm. No: Gallop, Murmur, Rub Respiratory: Yes: Regular, CTA Bilaterally, On Nasal O2. No: Rales, Rhonchi, Wheezes Gastrointestinal: Yes: Normal Bowel Sounds, Soft. No: Distention, Tenderness Extremities: Yes: WNL Edema: No Labs: CBC, BMP 04/23/17 05:53 04/23/17 05:53 Problem List - Problems (1) Acute on chronic diastolic (congestive) heart failure Code(s): I50.33 - ACUTE ON CHRONIC DIASTOLIC (CONGESTIVE) HEART FAILURE (2) Hypertensive emergency Code(s): I16.1 - HYPERTENSIVE EMERGENCY (3) Coronary artery disease Code(s): I25.10 - ATHSCL HEART DISEASE OF [place] CORONARY ARTERY W/O ANG PCTRS Qualifiers: Coronary Disease-Associated Artery/Lesion type: [place] artery [place] vs. transplanted heart: [place] heart Associated angina: without angina Qualified Code(s): I25.10 - Atherosclerotic heart disease of [place] coronary artery without angina pectoris (4) Hyperlipidemia Code(s): E78.5 - HYPERLIPIDEMIA, UNSPECIFIED Qualifiers: Hyperlipidemia type: Pure hypercholesterolemia (5) Reflux esophagitis Code(s): K21.0 - GASTRO-ESOPHAGEAL REFLUX DISEASE WITH ESOPHAGITIS (6) Emphysema of lung Code(s): J43.9 - EMPHYSEMA, UNSPECIFIED Qualifiers: Emphysema type: unspecified Qualified Code(s): J43.9 - Emphysema, unspecified (7) Hypothyroid Code(s): E03.9 - HYPOTHYROIDISM, UNSPECIFIED Assessment/Plan (1) Acute on chronic diastolic (congestive) heart failure Assessment/Plan: -at dry weight -stop IV lasix, place back on home dose -appreciate cardiology assistance Code(s): I50.33 - ACUTE ON CHRONIC DIASTOLIC (CONGESTIVE) HEART FAILURE (2) Hypertensive emergency Assessment/Plan: -continue hydralazine 25mg bid -continue cozaar and lasix -resolved -may have aspect of anxiety, low dose xanax trial Code(s): I16.1 - HYPERTENSIVE EMERGENCY (3) Coronary artery disease Assessment/Plan: -no chest pain -continue home regimen -cardiac enzymes x3 negative Code(s): I25.10 - ATHSCL HEART DISEASE OF [place] CORONARY ARTERY W/O ANG PCTRS Qualifiers: Coronary Disease-Associated Artery/Lesion type: [place] artery [place] vs. transplanted heart: [place] heart Associated angina: without angina Qualified Code(s): I25.10 - Atherosclerotic heart disease of [place] coronary artery without angina pectoris (4) Hyperlipidemia Assessment/Plan: -continue statin Code(s): E78.5 - HYPERLIPIDEMIA, UNSPECIFIED Qualifiers: Hyperlipidemia type: Pure hypercholesterolemia (5) Reflux esophagitis Assessment/Plan: -continue PPI Code(s): K21.0 - GASTRO-ESOPHAGEAL REFLUX DISEASE WITH ESOPHAGITIS (6) Emphysema of lung Assessment/Plan: -pulmonary consulted and case reviewed -continue solumedrol currently Code(s): J43.9 - EMPHYSEMA, UNSPECIFIED Qualifiers: Emphysema type: unspecified Qualified Code(s): J43.9 - Emphysema, unspecified (7) Hypothyroid Assessment/Plan: -continue synthroid -TSH and FT4 within normal limits Code(s): E03.9 - HYPOTHYROIDISM, UNSPECIFIED Dispo -? if anxiety component -trial of xanax -may benefit from SNF placement
[2017-04-23] MEDS: ATORVASTATIN CA 40 MG TABLET (FP) PO SCH (21:31)
[2017-04-24] MEDS: methylPREDNISolone NA SUCC 40 MG/1 ML VIAL IVPB SCH ×3 (01:37→21:19)
[2017-04-24] MEDS: ALPRAZolam 0.25 MG TABLET PO SCH ×3 (06:16→21:18)
[2017-04-24] MEDS: LEVOTHYROXINE NA 100 MCG TABLET (FP) PO SCH (06:16)
[2017-04-24 07:28] LABS: MCH 23.1 pg (25.7-33.7); MCHC 31.9 g/dl (32.0-36.0); MEAN CELL VOLUME 72.4 fl (80-96); PLATELET COUNT 239 K/MM3 (134-434); RDW 19.6 % (11.6-15.6); WHITE BLOOD COUNT 11.3 K/mm3 (4.0-10.0)
[2017-04-24 07:57] LABS: ANION GAP 8 (8-16); CALCIUM 9.1 mg/dL (8.5-10.1); CO2 25 mmol/L (21-32); CREATININE 0.9 mg/dL (0.55-1.02); GLUCOSE,RANDOM 115 mg/dL (74-106); MAGNESIUM 2.4 mg/dL (1.8-2.4); PHOSPHOROUS 2.9 mg/dL (2.5-4.9)
[2017-04-24 09:42] LABS: PLATELET ESTIMATE ADEQUATE (NORMAL)
[2017-04-24] MEDS: ASPIRIN 81 MG CHEWABLE TABLETS PO SCH (10:30)
[2017-04-24] MEDS: hydrALAZINE HCL 25 MG TABLET (FP) PO SCH ×2 (10:30→21:19)
[2017-04-24] MEDS: CYANOCOBALAMIN 1,000 MCG TABLET (FP) PO SCH (10:30)
[2017-04-24] MEDS: LOSARTAN POTASSIUM 50 MG TABLET (FP) PO SCH (10:30)
[2017-04-24] MEDS: PANTOPRAZOLE 40 MG TABLET (FP) PO SCH (10:30)
[2017-04-24] MEDS: ESCITALOPRAM OXALATE 10 MG TABLET (FP) PO SCH (10:30)
[2017-04-24] MEDS: FUROSEMIDE 20 MG TABLET (FP) PO SCH (10:30)
[2017-04-24] MEDS: POLYETHYLENE GLYCOL 3350 119 GM BTL PO SCH (10:31)
[2017-04-24] MEDS: FLUTICASONE PROP 0.05% 16 GM NASAL SPRAY NS SCH (10:31)
[2017-04-24] MEDS: BUDESONIDE/FORMETEROL FUMARATE 80/4.5 mcg INHALER IH SCH ×2 (10:32→21:19)
--- NOTE | 2017-04-24 10:44 | PN ---
Progress Note, Physician History of Present Illness: No events overnight Tele: Paced - Current Medication List Current Medications: Active Medications Acetaminophen (Tylenol -) 650 mg PO Q4H PRN PRN Reason: FEVER OR PAIN Last Admin: 04/23/17 08:07 Dose: 650 mg Al Hydroxide/Mg Hydroxide (Mylanta Oral Suspension -) 30 ml PO Q6HPO PRN PRN Reason: INDIGESTION Albuterol Sulfate (Ventolin 0.083% Nebulizer Soln -) 1 amp NEB Q6H PRN PRN Reason: SHORT OF BREATH/WHEEZING Last Admin: 04/21/17 20:20 Dose: 1 amp Alprazolam (Xanax -) 0.25 mg PO TID [facility] Last Admin: 04/24/17 06:16 Dose: 0.25 mg Aspirin (Asa -) 81 mg PO DAILY [facility] Last Admin: 04/24/17 10:30 Dose: 81 mg Atorvastatin Calcium (Lipitor -) 40 mg PO HS [facility] Last Admin: 04/23/17 21:31 Dose: 40 mg Budesonide/Formoterol Fumarate (Symbicort 80/4.5mcg -) 2 puff IH BID [facility] Last Admin: 04/24/17 10:32 Dose: Not Given Cyanocobalamin (Vitamin B12 -) 1,000 mcg PO DAILY [facility] Last Admin: 04/24/17 10:30 Dose: 1,000 mcg Escitalopram Oxalate (Lexapro -) 10 mg PO DAILY [facility] Last Admin: 04/24/17 10:30 Dose: 10 mg Fluticasone Propionate (Flonase -) 1 spray NS DAILY [facility] Last Admin: 04/24/17 10:31 Dose: Not Given Furosemide (Lasix -) 20 mg PO DAILY [facility] Last Admin: 04/24/17 10:30 Dose: 20 mg Hydralazine HCl (Apresoline -) 25 mg PO BID [facility] Last Admin: 04/24/17 10:30 Dose: 25 mg Levothyroxine Sodium (Synthroid -) 100 mcg PO DAILY@0700 [facility] Last Admin: 04/24/17 06:16 Dose: 100 mcg Losartan Potassium (Cozaar -) 100 mg PO DAILY [facility] Last Admin: 04/24/17 10:30 Dose: 100 mg Methylprednisolone Sodium Succinate (Solu-Medrol -) 40 mg IVPB Q8H-IV [facility] Last Admin: 04/24/17 10:31 Dose: 40 mg Pantoprazole Sodium (Protonix -) 40 mg PO DAILY [facility] Last Admin: 04/24/17 10:30 Dose: 40 mg Polyethylene Glycol (Miralax (For Daily Use) -) 17 gm PO DAILY [facility] Last Admin: 04/24/17 10:31 Dose: Not Given - Objective Vital Signs: Vital Signs Temperature 98.6 F 04/24/17 06:00 Pulse Rate 72 04/24/17 06:00 Respiratory Rate 19 04/24/17 06:00 Blood Pressure 139/98 04/24/17 06:00 O2 Sat by Pulse Oximetry (%) 95 04/23/17 21:00 Constitutional: Yes: Well Nourished, No Distress Eyes: Yes: WNL HENT: Yes: WNL Neck: Yes: WNL Cardiovascular: Yes: WNL Respiratory: Yes: CTA Bilaterally Gastrointestinal: Yes: Normal Bowel Sounds Extremities: Yes: WNL Edema: No Labs: CBC, BMP 04/24/17 05:20 04/24/17 05:20 Assessment/Plan a/p: 81 f hx htn, hld, hypothyroid, cad s/p pci 2007 (lad), le edema/venous insuff, chronic URIs sent to er by pmd for htn and sob. sob, acute diastolic chf likely secondary to hypertensive emergency: -sob and elevated bnp likely due to hypertensive emergency causing dchf -no signs acs -cont cozaar. she is indira with bystolic so stopped here. she had worse le edema with ccb so will avoid. Started hydralazine 50 bid but then had bp on lower side so will decrease to 10 bid and titrate up if needed-->increased to 25 bid 04/22, bp improved so far -after iv lasix here bun/cr bumped and she does not appear vol overloaded so changed back to home po lasix 20 qd -her remaining sob/herr is a chronic symptom for her, may be have been exacerbated by htn emergency, but otherwise does not appear cardiac in etiology , pulm evaluating as well and is giving empiric trial of steroids for possible copd -recent echo and mibi unremarkable 04/24: Cr stable. BP improved. Continue lasix 20mg daily le edema/venous insuff: -stable, no sig le edema currently -resumed home lasix 20 po qd htn: -Improved BP on Cozaar 100mg daily, Hydral 25mg BID and Lasix 20. hld: -cont statin cad s/p remote pci: -stable, no angina, no signs acs -ce's neg x3, ecg w/o ischemic changes -recent mibi and echo unremarkable -cont asa, statin, arb -stopped bb due to bradycardia
--- NOTE | 2017-04-24 12:35 | PN ---
Progress Note, Physician Chief Complaint: Fatigue. History of Present Illness: Feels tired but pleased that her BP is better controlled.Denies chest pain or SOB. Tolerating diet. Seen by Cardiology. Uses rolling walker with PT yesterday. - Current Medication List Current Medications: Active Medications Acetaminophen (Tylenol -) 650 mg PO Q4H PRN PRN Reason: FEVER OR PAIN Last Admin: 04/23/17 08:07 Dose: 650 mg Al Hydroxide/Mg Hydroxide (Mylanta Oral Suspension -) 30 ml PO Q6HPO PRN PRN Reason: INDIGESTION Albuterol Sulfate (Ventolin 0.083% Nebulizer Soln -) 1 amp NEB Q6H PRN PRN Reason: SHORT OF BREATH/WHEEZING Last Admin: 04/21/17 20:20 Dose: 1 amp Alprazolam (Xanax -) 0.25 mg PO TID [facility] Last Admin: 04/24/17 06:16 Dose: 0.25 mg Aspirin (Asa -) 81 mg PO DAILY [facility] Last Admin: 04/24/17 10:30 Dose: 81 mg Atorvastatin Calcium (Lipitor -) 40 mg PO HS [facility] Last Admin: 04/23/17 21:31 Dose: 40 mg Budesonide/Formoterol Fumarate (Symbicort 80/4.5mcg -) 2 puff IH BID [facility] Last Admin: 04/24/17 10:32 Dose: Not Given Cyanocobalamin (Vitamin B12 -) 1,000 mcg PO DAILY [facility] Last Admin: 04/24/17 10:30 Dose: 1,000 mcg Escitalopram Oxalate (Lexapro -) 10 mg PO DAILY [facility] Last Admin: 04/24/17 10:30 Dose: 10 mg Fluticasone Propionate (Flonase -) 1 spray NS DAILY [facility] Last Admin: 04/24/17 10:31 Dose: Not Given Furosemide (Lasix -) 20 mg PO DAILY [facility] Last Admin: 04/24/17 10:30 Dose: 20 mg Hydralazine HCl (Apresoline -) 25 mg PO BID [facility] Last Admin: 04/24/17 10:30 Dose: 25 mg Levothyroxine Sodium (Synthroid -) 100 mcg PO DAILY@0700 [facility] Last Admin: 04/24/17 06:16 Dose: 100 mcg Losartan Potassium (Cozaar -) 100 mg PO DAILY [facility] Last Admin: 04/24/17 10:30 Dose: 100 mg Methylprednisolone Sodium Succinate (Solu-Medrol -) 40 mg IVPB Q8H-IV [facility] Last Admin: 04/24/17 10:31 Dose: 40 mg Pantoprazole Sodium (Protonix -) 40 mg PO DAILY [facility] Last Admin: 04/24/17 10:30 Dose: 40 mg Polyethylene Glycol (Miralax (For Daily Use) -) 17 gm PO DAILY [facility] Last Admin: 04/24/17 10:31 Dose: Not Given - Objective Vital Signs: Vital Signs Temperature 98.6 F 04/24/17 06:00 Pulse Rate 72 04/24/17 06:00 Respiratory Rate 19 04/24/17 06:00 Blood Pressure 139/98 04/24/17 06:00 O2 Sat by Pulse Oximetry (%) 95 04/23/17 21:00 Constitutional: Yes: Anxious Eyes: Yes: Conjunctiva Clear Cardiovascular: Yes: Regular Rate and Rhythm Respiratory: Yes: Regular Gastrointestinal: Yes: Soft Genitourinary: Yes: Bladder Distention (?? bladder distention) Edema: LLE: Trace, RLE: Trace Neurological: Yes: Alert, Oriented Labs: CBC, BMP 04/24/17 05:20 04/24/17 05:20 Problem List - Problems (1) Congestive cardiac failure Assessment/Plan: Diastolic failure on admission but appears resolved. Code(s): I50.9 - HEART FAILURE, UNSPECIFIED Qualifiers: Congestive heart failure type: unspecified congestive heart failure type Congestive heart failure chronicity: unspecified congestive heart failure chronicity Qualified Code(s): I50.9 - Heart failure, unspecified (2) Hypertensive urgency Assessment/Plan: More controlled but the last reading was 139/98; to follow. Code(s): I16.0 - HYPERTENSIVE URGENCY (3) Hypothyroid Assessment/Plan: On synthroid 100mcg a day Code(s): E03.9 - HYPOTHYROIDISM, UNSPECIFIED (4) Acute kidney injury Assessment/Plan: Renal lab slightly elevated. BUN35; creatinine .9 Will follow Code(s): N17.9 - ACUTE KIDNEY FAILURE, UNSPECIFIED
--- NOTE | 2017-04-24 13:39 | PN ---
Progress Note (short form) - Note Progress Note: Feels a little better. "Raspy" voice and nasal congestion. Having a hard time coordinating MDI. Intake & Output 04/21/17 04/22/17 04/23/17 04/24/17 23:59 23:59 23:59 23:59 Intake Total 730 1390 300 430 Balance 730 1390 300 430 Weight 153 lb 6 oz 154 lb 6 oz 156 lb 6.4 oz 156 lb Last Vital Signs Temp Pulse Resp BP Pulse Ox 98.6 F 72 19 139/98 95 04/24/17 06:00 04/24/17 06:00 04/24/17 06:00 04/24/17 06:00 04/23/17 21:00 Active Medications Acetaminophen (Tylenol -) 650 mg PO Q4H PRN PRN Reason: FEVER OR PAIN Last Admin: 04/23/17 08:07 Dose: 650 mg Al Hydroxide/Mg Hydroxide (Mylanta Oral Suspension -) 30 ml PO Q6HPO PRN PRN Reason: INDIGESTION Albuterol Sulfate (Ventolin 0.083% Nebulizer Soln -) 1 amp NEB Q6H PRN PRN Reason: SHORT OF BREATH/WHEEZING Last Admin: 04/21/17 20:20 Dose: 1 amp Alprazolam (Xanax -) 0.25 mg PO TID [facility] Last Admin: 04/24/17 06:16 Dose: 0.25 mg Aspirin (Asa -) 81 mg PO DAILY [facility] Last Admin: 04/24/17 10:30 Dose: 81 mg Atorvastatin Calcium (Lipitor -) 40 mg PO HS [facility] Last Admin: 04/23/17 21:31 Dose: 40 mg Budesonide/Formoterol Fumarate (Symbicort 80/4.5mcg -) 2 puff IH BID [facility] Last Admin: 04/24/17 10:32 Dose: Not Given Cyanocobalamin (Vitamin B12 -) 1,000 mcg PO DAILY [facility] Last Admin: 04/24/17 10:30 Dose: 1,000 mcg Escitalopram Oxalate (Lexapro -) 10 mg PO DAILY [facility] Last Admin: 04/24/17 10:30 Dose: 10 mg Fluticasone Propionate (Flonase -) 1 spray NS DAILY [facility] Last Admin: 04/24/17 10:31 Dose: Not Given Furosemide (Lasix -) 20 mg PO DAILY [facility] Last Admin: 04/24/17 10:30 Dose: 20 mg Hydralazine HCl (Apresoline -) 25 mg PO BID [facility] Last Admin: 04/24/17 10:30 Dose: 25 mg Levothyroxine Sodium (Synthroid -) 100 mcg PO DAILY@0700 [facility] Last Admin: 04/24/17 06:16 Dose: 100 mcg Losartan Potassium (Cozaar -) 100 mg PO DAILY [facility] Last Admin: 04/24/17 10:30 Dose: 100 mg Methylprednisolone Sodium Succinate (Solu-Medrol -) 40 mg IVPB BID [facility] Pantoprazole Sodium (Protonix -) 40 mg PO DAILY [facility] Last Admin: 04/24/17 10:30 Dose: 40 mg Polyethylene Glycol (Miralax (For Daily Use) -) 17 gm PO DAILY [facility] Last Admin: 04/24/17 10:31 Dose: Not Given Constitutional: Yes: Awake, alert, NAD Eyes: Yes: WNL HENT: Yes: WNL Neck: Yes: WNL Cardiovascular: Yes: Regular Rate and Rhythm, S1, S2 Respiratory: Yes: Diminished Gastrointestinal: Yes: Normal Bowel Sounds, Soft Extremities: Yes: WNL Edema: No Labs: Laboratory Results - last 24 hr 04/24/17 04/24/17 05:20 05:20 WBC 11.3 H RBC 4.24 Hgb 9.8 L Hct 30.7 L MCV 72.4 L MCH 23.1 L MCHC 31.9 L RDW 19.6 H Plt Count 239 MPV 9.0 Neutrophils % 86.0 H Lymphocytes % 10.0 Monocytes % 1.0 L Band Neutrophils 3.0 Differential Comment Slide scanned Platelet Estimate Adequate Sodium 141 Potassium 4.9 Chloride 108 H Carbon Dioxide 25 Anion Gap 8 BUN 35 H Creatinine 0.9 Random Glucose 115 H Calcium 9.1 Phosphorus 2.9 D Magnesium 2.4 Problem List - Problems (1) Congestive cardiac failure Code(s): I50.9 - HEART FAILURE, UNSPECIFIED Qualifiers: Congestive heart failure type: unspecified congestive heart failure type Congestive heart failure chronicity: unspecified congestive heart failure chronicity Qualified Code(s): I50.9 - Heart failure, unspecified (2) Hypothyroid Code(s): E03.9 - HYPOTHYROIDISM, UNSPECIFIED (3) Shortness of breath Code(s): R06.02 - SHORTNESS OF BREATH (4) Acute on chronic diastolic (congestive) heart failure Code(s): I50.33 - ACUTE ON CHRONIC DIASTOLIC (CONGESTIVE) HEART FAILURE (5) Coronary artery disease Code(s): I25.10 - ATHSCL HEART DISEASE OF [place] CORONARY ARTERY W/O ANG PCTRS Qualifiers: Coronary Disease-Associated Artery/Lesion type: [place] artery [place] vs. transplanted heart: [place] heart Associated angina: without angina Qualified Code(s): I25.10 - Atherosclerotic heart disease of [place] coronary artery without angina pectoris (6) Dyspnea Code(s): R06.00 - DYSPNEA, UNSPECIFIED Qualifiers: Dyspnea type: dyspnea on exertion Qualified Code(s): R06.09 - Other forms of dyspnea (7) Edema Code(s): R60.9 - EDEMA, UNSPECIFIED Qualifiers: Edema type: localized Qualified Code(s): R60.0 - Localized edema (8) H/O heart artery stent Code(s): Z95.5 - PRESENCE OF CORONARY ANGIOPLASTY IMPLANT AND GRAFT (9) Hyperlipidemia Code(s): E78.5 - HYPERLIPIDEMIA, UNSPECIFIED Qualifiers: Hyperlipidemia type: Pure hypercholesterolemia (10) Hypertension Code(s): I10 - ESSENTIAL (PRIMARY) HYPERTENSION Qualifiers: Hypertension type: essential hypertension Qualified Code(s): I10 - Essential (primary) hypertension (11) Hypertensive urgency Code(s): I16.0 - HYPERTENSIVE URGENCY Assessment/Plan IMP HYPERTENSIVE URGENCY IMPROVED DIASTOLIC HF DYSPNEA LIKELY SECONDARY TO HF HTN H/O URIs + SECOND HAND SMOKE EXPOSURE PLAN BP CONTROL INHALED BRONCHODILATORS PRN STEROIDS DIURETICS O2 PRN CHECK O2 SAT POST EXERCIS DR SHOEMAKER
[2017-04-24] MEDS: ATORVASTATIN CA 40 MG TABLET (FP) PO SCH (21:18)
[2017-04-25] MEDS: ALPRAZolam 0.25 MG TABLET PO SCH ×3 (05:35→21:30)
[2017-04-25] MEDS: LEVOTHYROXINE NA 100 MCG TABLET (FP) PO SCH (06:11)
[2017-04-25] MEDS: ASPIRIN 81 MG CHEWABLE TABLETS PO SCH (09:16)
[2017-04-25] MEDS: LOSARTAN POTASSIUM 50 MG TABLET (FP) PO SCH (09:16)
[2017-04-25] MEDS: hydrALAZINE HCL 25 MG TABLET (FP) PO SCH (09:16)
[2017-04-25] MEDS: CYANOCOBALAMIN 1,000 MCG TABLET (FP) PO SCH (09:16)
[2017-04-25] MEDS: methylPREDNISolone NA SUCC 40 MG/1 ML VIAL IVPB SCH ×3 (09:16→21:30)
[2017-04-25] MEDS: ESCITALOPRAM OXALATE 10 MG TABLET (FP) PO SCH (09:16)
[2017-04-25] MEDS: FUROSEMIDE 20 MG TABLET (FP) PO SCH (09:16)
[2017-04-25] MEDS: PANTOPRAZOLE 40 MG TABLET (FP) PO SCH (09:16)
[2017-04-25] MEDS: BUDESONIDE/FORMETEROL FUMARATE 80/4.5 mcg INHALER IH SCH ×2 (10:11→21:36)
[2017-04-25] MEDS: FLUTICASONE PROP 0.05% 16 GM NASAL SPRAY NS SCH (10:11)
[2017-04-25] MEDS: POLYETHYLENE GLYCOL 3350 119 GM BTL PO SCH (10:11)
--- NOTE | 2017-04-25 12:02 | PN ---
Progress Note, Physician History of Present Illness: No complaints Tele NSR with PVCs - Current Medication List Current Medications: Active Medications Acetaminophen (Tylenol -) 650 mg PO Q4H PRN PRN Reason: FEVER OR PAIN Last Admin: 04/23/17 08:07 Dose: 650 mg Al Hydroxide/Mg Hydroxide (Mylanta Oral Suspension -) 30 ml PO Q6HPO PRN PRN Reason: INDIGESTION Albuterol Sulfate (Ventolin 0.083% Nebulizer Soln -) 1 amp NEB Q6H PRN PRN Reason: SHORT OF BREATH/WHEEZING Last Admin: 04/21/17 20:20 Dose: 1 amp Alprazolam (Xanax -) 0.25 mg PO TID [facility] Last Admin: 04/25/17 05:35 Dose: 0.25 mg Aspirin (Asa -) 81 mg PO DAILY [facility] Last Admin: 04/25/17 09:16 Dose: 81 mg Atorvastatin Calcium (Lipitor -) 40 mg PO HS [facility] Last Admin: 04/24/17 21:18 Dose: 40 mg Budesonide/Formoterol Fumarate (Symbicort 80/4.5mcg -) 2 puff IH BID [facility] Last Admin: 04/25/17 10:11 Dose: 2 puff Cyanocobalamin (Vitamin B12 -) 1,000 mcg PO DAILY [facility] Last Admin: 04/25/17 09:16 Dose: 1,000 mcg Escitalopram Oxalate (Lexapro -) 10 mg PO DAILY [facility] Last Admin: 04/25/17 09:16 Dose: 10 mg Fluticasone Propionate (Flonase -) 1 spray NS DAILY [facility] Last Admin: 04/25/17 10:11 Dose: Not Given Furosemide (Lasix -) 20 mg PO DAILY [facility] Last Admin: 04/25/17 09:16 Dose: 20 mg Hydralazine HCl (Apresoline -) 25 mg PO BID [facility] Last Admin: 04/25/17 09:16 Dose: 25 mg Levothyroxine Sodium (Synthroid -) 100 mcg PO DAILY@0700 [facility] Last Admin: 04/25/17 06:11 Dose: 100 mcg Losartan Potassium (Cozaar -) 100 mg PO DAILY [facility] Last Admin: 04/25/17 09:16 Dose: 100 mg Methylprednisolone Sodium Succinate (Solu-Medrol -) 40 mg IVPB BID [facility] Last Admin: 04/24/17 21:19 Dose: 40 mg Pantoprazole Sodium (Protonix -) 40 mg PO DAILY [facility] Last Admin: 04/25/17 09:16 Dose: 40 mg Polyethylene Glycol (Miralax (For Daily Use) -) 17 gm PO DAILY [facility] Last Admin: 04/25/17 10:11 Dose: Not Given - Objective Vital Signs: Vital Signs Temperature 97.6 F 04/25/17 07:50 Pulse Rate 66 04/25/17 07:50 Respiratory Rate 62 H 04/25/17 11:20 Blood Pressure 183/72 04/25/17 11:20 O2 Sat by Pulse Oximetry (%) 95 04/24/17 21:00 Constitutional: Yes: No Distress, Calm Eyes: Yes: WNL, Conjunctiva Clear HENT: Yes: WNL, Atraumatic, Normocephalic Neck: Yes: WNL, Supple, Trachea Midline Cardiovascular: Yes: WNL, Regular Rate and Rhythm Respiratory: Yes: WNL, CTA Bilaterally Gastrointestinal: Yes: WNL Musculoskeletal: Yes: WNL Edema: No Labs: CBC, BMP 04/24/17 05:20 04/24/17 05:20 Assessment/Plan a/p: 81 f hx htn, hld, hypothyroid, cad s/p pci 2007 (lad), le edema/venous insuff, chronic URIs sent to er by pmd for htn and sob. sob, acute diastolic chf likely secondary to hypertensive emergency: -sob and elevated bnp likely due to hypertensive emergency causing dchf -no signs acs -cont cozaar. she is indira with bystolic so stopped here. she had worse le edema with ccb so will avoid. Started hydralazine 50 bid but then had bp on lower side so will decrease to 10 bid and titrate up if needed-->increased to 25 bid 04/22, bp improved so far -after iv lasix here bun/cr bumped and she does not appear vol overloaded so changed back to home po lasix 20 qd -her remaining sob/herr is a chronic symptom for her, may be have been exacerbated by htn emergency, but otherwise does not appear cardiac in etiology , pulm evaluating as well and is giving empiric trial of steroids for possible copd -recent echo and mibi unremarkable 04/24: Cr stable. BP improved. Continue lasix 20mg daily 04/25: Cr stable, weight up but clinically euvolemic. Continue lasix at current dose. le edema/venous insuff: -stable, no sig le edema currently -resumed home lasix 20 po qd htn: -Today with elevated BP on Cozaar 100mg daily, Hydral 25mg BID and Lasix 20. -Will increase Hydralazine to 50mg TID and monitor BP. hld: -cont statin cad s/p remote pci: -stable, no angina, no signs acs -ce's neg x3, ecg w/o ischemic changes -recent mibi and echo unremarkable -cont asa, statin, arb -stopped bb due to bradycardia
--- NOTE | 2017-04-25 12:41 | PN ---
Progress Note (short form) - Note Progress Note: Feels about the same. Still with "Raspy" voice and nasal congestion. Slept well last night. Feels anxious. Intake & Output 04/22/17 04/23/17 04/24/17 04/25/17 23:59 23:59 23:59 23:59 Intake Total 1390 300 680 200 Balance 1390 300 680 200 Weight 154 lb 6 oz 156 lb 6.4 oz 156 lb 158 lb 12.8 oz Last Vital Signs Temp Pulse Resp BP Pulse Ox 97.6 F 66 62 H 183/72 95 04/25/17 07:50 04/25/17 07:50 04/25/17 11:20 04/25/17 11:20 04/24/17 21:00 Active Medications Acetaminophen (Tylenol -) 650 mg PO Q4H PRN PRN Reason: FEVER OR PAIN Last Admin: 04/23/17 08:07 Dose: 650 mg Al Hydroxide/Mg Hydroxide (Mylanta Oral Suspension -) 30 ml PO Q6HPO PRN PRN Reason: INDIGESTION Albuterol Sulfate (Ventolin 0.083% Nebulizer Soln -) 1 amp NEB Q6H PRN PRN Reason: SHORT OF BREATH/WHEEZING Last Admin: 04/21/17 20:20 Dose: 1 amp Alprazolam (Xanax -) 0.25 mg PO TID [facility] Last Admin: 04/25/17 05:35 Dose: 0.25 mg Aspirin (Asa -) 81 mg PO DAILY [facility] Last Admin: 04/25/17 09:16 Dose: 81 mg Atorvastatin Calcium (Lipitor -) 40 mg PO HS [facility] Last Admin: 04/24/17 21:18 Dose: 40 mg Budesonide/Formoterol Fumarate (Symbicort 80/4.5mcg -) 2 puff IH BID [facility] Last Admin: 04/25/17 10:11 Dose: 2 puff Cyanocobalamin (Vitamin B12 -) 1,000 mcg PO DAILY [facility] Last Admin: 04/25/17 09:16 Dose: 1,000 mcg Escitalopram Oxalate (Lexapro -) 10 mg PO DAILY [facility] Last Admin: 04/25/17 09:16 Dose: 10 mg Fluticasone Propionate (Flonase -) 1 spray NS DAILY [facility] Last Admin: 04/25/17 10:11 Dose: Not Given Furosemide (Lasix -) 20 mg PO DAILY [facility] Last Admin: 04/25/17 09:16 Dose: 20 mg Hydralazine HCl (Apresoline -) 50 mg PO TID [facility] Levothyroxine Sodium (Synthroid -) 100 mcg PO DAILY@0700 [facility] Last Admin: 04/25/17 06:11 Dose: 100 mcg Losartan Potassium (Cozaar -) 100 mg PO DAILY [facility] Last Admin: 04/25/17 09:16 Dose: 100 mg Methylprednisolone Sodium Succinate (Solu-Medrol -) 40 mg IVPB BID [facility] Last Admin: 04/24/17 21:19 Dose: 40 mg Pantoprazole Sodium (Protonix -) 40 mg PO DAILY [facility] Last Admin: 04/25/17 09:16 Dose: 40 mg Polyethylene Glycol (Miralax (For Daily Use) -) 17 gm PO DAILY [facility] Last Admin: 04/25/17 10:11 Dose: Not Given Constitutional: Yes: Awake, alert, NAD Eyes: Yes: WNL HENT: Yes: WNL Neck: Yes: WNL Cardiovascular: Yes: Regular Rate and Rhythm, S1, S2 Respiratory: Yes: Diminished, few scattered rhonchi Gastrointestinal: Yes: Normal Bowel Sounds, Soft Extremities: Yes: WNL Edema: No Labs: Problem List - Problems (1) Congestive cardiac failure Code(s): I50.9 - HEART FAILURE, UNSPECIFIED Qualifiers: Congestive heart failure type: unspecified congestive heart failure type Congestive heart failure chronicity: unspecified congestive heart failure chronicity Qualified Code(s): I50.9 - Heart failure, unspecified (2) Hypothyroid Code(s): E03.9 - HYPOTHYROIDISM, UNSPECIFIED (3) Shortness of breath Code(s): R06.02 - SHORTNESS OF BREATH (4) Acute on chronic diastolic (congestive) heart failure Code(s): I50.33 - ACUTE ON CHRONIC DIASTOLIC (CONGESTIVE) HEART FAILURE (5) Coronary artery disease Code(s): I25.10 - ATHSCL HEART DISEASE OF [place] CORONARY ARTERY W/O ANG PCTRS Qualifiers: Coronary Disease-Associated Artery/Lesion type: [place] artery [place] vs. transplanted heart: [place] heart Associated angina: without angina Qualified Code(s): I25.10 - Atherosclerotic heart disease of [place] coronary artery without angina pectoris (6) Dyspnea Code(s): R06.00 - DYSPNEA, UNSPECIFIED Qualifiers: Dyspnea type: dyspnea on exertion Qualified Code(s): R06.09 - Other forms of dyspnea (7) Edema Code(s): R60.9 - EDEMA, UNSPECIFIED Qualifiers: Edema type: localized Qualified Code(s): R60.0 - Localized edema (8) H/O heart artery stent Code(s): Z95.5 - PRESENCE OF CORONARY ANGIOPLASTY IMPLANT AND GRAFT (9) Hyperlipidemia Code(s): E78.5 - HYPERLIPIDEMIA, UNSPECIFIED Qualifiers: Hyperlipidemia type: Pure hypercholesterolemia (10) Hypertension Code(s): I10 - ESSENTIAL (PRIMARY) HYPERTENSION Qualifiers: Hypertension type: essential hypertension Qualified Code(s): I10 - Essential (primary) hypertension (11) Hypertensive urgency Code(s): I16.0 - HYPERTENSIVE URGENCY Assessment/Plan IMP HYPERTENSIVE URGENCY IMPROVED DIASTOLIC HF DYSPNEA LIKELY SECONDARY TO HF HTN H/O URIs + SECOND HAND SMOKE EXPOSURE PLAN BP CONTROL SYMBICORT BID INHALED BRONCHODILATORS PRN STEROIDS AT CURRENT DOSE DIURETICS O2 PRN CHECK O2 SAT POST EXERCISE DR SHOEMAKER
--- NOTE | 2017-04-25 13:24 | PN ---
Progress Note, Physician Chief Complaint: A little more congested today but happy she walked in halls yesterday with her niece. Seen by Cardiology and Pulmonary MD's Systolic BP readings are higher today; will follow. Flakita REEDER suggests keeping the same steroid dosing for now. Slight coughing. - Current Medication List Current Medications: Active Medications Acetaminophen (Tylenol -) 650 mg PO Q4H PRN PRN Reason: FEVER OR PAIN Last Admin: 04/23/17 08:07 Dose: 650 mg Al Hydroxide/Mg Hydroxide (Mylanta Oral Suspension -) 30 ml PO Q6HPO PRN PRN Reason: INDIGESTION Albuterol Sulfate (Ventolin 0.083% Nebulizer Soln -) 1 amp NEB Q6H PRN PRN Reason: SHORT OF BREATH/WHEEZING Last Admin: 04/21/17 20:20 Dose: 1 amp Alprazolam (Xanax -) 0.25 mg PO TID [facility] Last Admin: 04/25/17 05:35 Dose: 0.25 mg Aspirin (Asa -) 81 mg PO DAILY [facility] Last Admin: 04/25/17 09:16 Dose: 81 mg Atorvastatin Calcium (Lipitor -) 40 mg PO HS [facility] Last Admin: 04/24/17 21:18 Dose: 40 mg Budesonide/Formoterol Fumarate (Symbicort 80/4.5mcg -) 2 puff IH BID [facility] Last Admin: 04/25/17 10:11 Dose: 2 puff Cyanocobalamin (Vitamin B12 -) 1,000 mcg PO DAILY [facility] Last Admin: 04/25/17 09:16 Dose: 1,000 mcg Escitalopram Oxalate (Lexapro -) 10 mg PO DAILY [facility] Last Admin: 04/25/17 09:16 Dose: 10 mg Fluticasone Propionate (Flonase -) 1 spray NS DAILY [facility] Last Admin: 04/25/17 10:11 Dose: Not Given Furosemide (Lasix -) 20 mg PO DAILY [facility] Last Admin: 04/25/17 09:16 Dose: 20 mg Hydralazine HCl (Apresoline -) 50 mg PO TID [facility] Levothyroxine Sodium (Synthroid -) 100 mcg PO DAILY@0700 [facility] Last Admin: 04/25/17 06:11 Dose: 100 mcg Losartan Potassium (Cozaar -) 100 mg PO DAILY [facility] Last Admin: 04/25/17 09:16 Dose: 100 mg Methylprednisolone Sodium Succinate (Solu-Medrol -) 40 mg IVPB BID [facility] Last Admin: 04/24/17 21:19 Dose: 40 mg Pantoprazole Sodium (Protonix -) 40 mg PO DAILY [facility] Last Admin: 04/25/17 09:16 Dose: 40 mg Polyethylene Glycol (Miralax (For Daily Use) -) 17 gm PO DAILY [facility] Last Admin: 04/25/17 10:11 Dose: Not Given - Objective Vital Signs: Vital Signs Temperature 97.6 F 04/25/17 07:50 Pulse Rate 66 04/25/17 07:50 Respiratory Rate 62 H 04/25/17 11:20 Blood Pressure 183/72 04/25/17 11:20 O2 Sat by Pulse Oximetry (%) 95 04/24/17 21:00 Constitutional: Yes: Anxious Eyes: Yes: Conjunctiva Clear Cardiovascular: Yes: Regular Rate and Rhythm Respiratory: Yes: Diminished, Wheezes (few wheezes on both sides.) Gastrointestinal: Yes: Soft Edema: LLE: Trace, RLE: Trace Neurological: Yes: Alert, Oriented Labs: CBC, BMP 04/24/17 05:20 04/24/17 05:20 Problem List - Problems (1) Congestive cardiac failure Assessment/Plan: Stable findings as per Cardiology. Code(s): I50.9 - HEART FAILURE, UNSPECIFIED Qualifiers: Congestive heart failure type: unspecified congestive heart failure type Congestive heart failure chronicity: unspecified congestive heart failure chronicity Qualified Code(s): I50.9 - Heart failure, unspecified (2) Hypertensive urgency Assessment/Plan: Last systolic reading 183; will follow; on multiple BP Rx. Possibly anxiety and steroids are affecting this also. Code(s): I16.0 - HYPERTENSIVE URGENCY (3) Hypothyroid Assessment/Plan: On Rx. Code(s): E03.9 - HYPOTHYROIDISM, UNSPECIFIED (4) Acute kidney injury Assessment/Plan: BUN 35; to follow Code(s): N17.9 - ACUTE KIDNEY FAILURE, UNSPECIFIED (5) Anxiety about health Assessment/Plan: On Rx to help control: Lexapro and Alprazolam Code(s): F41.8 - OTHER SPECIFIED ANXIETY DISORDERS
[2017-04-25] MEDS: hydrALAZINE HCL 50 MG TABLET (FP) PO SCH ×2 (14:06→21:30)
[2017-04-25] MEDS: ATORVASTATIN CA 40 MG TABLET (FP) PO SCH (21:30)
[2017-04-26] MEDS: hydrALAZINE HCL 50 MG TABLET (FP) PO SCH ×3 (05:44→22:12)
[2017-04-26] MEDS: ALPRAZolam 0.25 MG TABLET PO SCH ×3 (05:44→22:12)
[2017-04-26] MEDS: LEVOTHYROXINE NA 100 MCG TABLET (FP) PO SCH (06:34)
[2017-04-26 07:05] LABS: MCH 23.2 pg (25.7-33.7); MCHC 31.9 g/dl (32.0-36.0); MEAN CELL VOLUME 72.8 fl (80-96); MEAN PLT VOLUME 9.1 fl (7.5-11.1); NEUTROPHILS 80.2 % (42.8-82.8); PLATELET COUNT 256 K/MM3 (134-434); RDW 19.8 % (11.6-15.6); WHITE BLOOD COUNT 7.2 K/mm3 (4.0-10.0)
[2017-04-26 07:43] LABS: CALCIUM 8.5 mg/dL (8.5-10.1)
[2017-04-26 07:47] LABS: ANION GAP 10 (8-16); CO2 22 mmol/L (21-32); CREATININE 0.9 mg/dL (0.55-1.02); GLUCOSE,RANDOM 104 mg/dL (74-106)
[2017-04-26] MEDS: ASPIRIN 81 MG CHEWABLE TABLETS PO SCH (09:30)
[2017-04-26] MEDS: methylPREDNISolone NA SUCC 40 MG/1 ML VIAL IVPB SCH ×2 (09:30→22:12)
[2017-04-26] MEDS: FUROSEMIDE 20 MG TABLET (FP) PO SCH (09:30)
[2017-04-26] MEDS: CYANOCOBALAMIN 1,000 MCG TABLET (FP) PO SCH (09:30)
[2017-04-26] MEDS: ESCITALOPRAM OXALATE 10 MG TABLET (FP) PO SCH (09:30)
[2017-04-26] MEDS: LOSARTAN POTASSIUM 50 MG TABLET (FP) PO SCH (09:30)
[2017-04-26] MEDS: PANTOPRAZOLE 40 MG TABLET (FP) PO SCH (09:30)
[2017-04-26] MEDS: BUDESONIDE/FORMETEROL FUMARATE 80/4.5 mcg INHALER IH SCH ×2 (09:31→22:13)
[2017-04-26] MEDS: FLUTICASONE PROP 0.05% 16 GM NASAL SPRAY NS SCH (09:31)
--- NOTE | 2017-04-26 10:24 | PN ---
Progress Note, Physician - Current Medication List Current Medications: Active Medications Acetaminophen (Tylenol -) 650 mg PO Q4H PRN PRN Reason: FEVER OR PAIN Last Admin: 04/23/17 08:07 Dose: 650 mg Al Hydroxide/Mg Hydroxide (Mylanta Oral Suspension -) 30 ml PO Q6HPO PRN PRN Reason: INDIGESTION Albuterol Sulfate (Ventolin 0.083% Nebulizer Soln -) 1 amp NEB Q6H PRN PRN Reason: SHORT OF BREATH/WHEEZING Last Admin: 04/21/17 20:20 Dose: 1 amp Alprazolam (Xanax -) 0.25 mg PO TID [facility] Last Admin: 04/26/17 05:44 Dose: 0.25 mg Aspirin (Asa -) 81 mg PO DAILY [facility] Last Admin: 04/26/17 09:30 Dose: 81 mg Atorvastatin Calcium (Lipitor -) 40 mg PO HS [facility] Last Admin: 04/25/17 21:30 Dose: 40 mg Budesonide/Formoterol Fumarate (Symbicort 80/4.5mcg -) 2 puff IH BID [facility] Last Admin: 04/26/17 09:31 Dose: 2 puff Cyanocobalamin (Vitamin B12 -) 1,000 mcg PO DAILY [facility] Last Admin: 04/26/17 09:30 Dose: 1,000 mcg Escitalopram Oxalate (Lexapro -) 10 mg PO DAILY [facility] Last Admin: 04/26/17 09:30 Dose: 10 mg Fluticasone Propionate (Flonase -) 1 spray NS DAILY [facility] Last Admin: 04/26/17 09:31 Dose: 1 spray Furosemide (Lasix -) 20 mg PO DAILY [facility] Last Admin: 04/26/17 09:30 Dose: 20 mg Hydralazine HCl (Apresoline -) 50 mg PO TID [facility] Last Admin: 04/26/17 05:44 Dose: 50 mg Levothyroxine Sodium (Synthroid -) 100 mcg PO DAILY@0700 [facility] Last Admin: 04/26/17 06:34 Dose: 100 mcg Losartan Potassium (Cozaar -) 100 mg PO DAILY [facility] Last Admin: 04/26/17 09:30 Dose: 100 mg Methylprednisolone Sodium Succinate (Solu-Medrol -) 40 mg IVPB BID [facility] Last Admin: 04/26/17 09:30 Dose: 40 mg Pantoprazole Sodium (Protonix -) 40 mg PO DAILY [facility] Last Admin: 04/26/17 09:30 Dose: 40 mg Polyethylene Glycol (Miralax (For Daily Use) -) 17 gm PO DAILY [facility] Last Admin: 04/25/17 10:11 Dose: Not Given - Objective Vital Signs: Vital Signs Temperature 98.2 F 04/26/17 08:00 Pulse Rate 66 04/26/17 08:00 Respiratory Rate 16 04/26/17 08:00 Blood Pressure 144/58 04/26/17 08:00 O2 Sat by Pulse Oximetry (%) 96 04/25/17 22:00 Labs: CBC, BMP 04/26/17 05:35 04/26/17 05:35 Assessment/Plan echo 03/2017: nl lv/rv, mild ar/mr mibi 03/2017: nl mpi, nl lvef ecg 04/19/17: no ischemic changes cxr: no chf a/p: 81 f hx htn, hld, hypothyroid, cad s/p pci 2007 (lad), le edema/venous insuff, chronic URIs sent to er by pmd for htn and sob. sob, acute diastolic chf likely secondary to hypertensive emergency: -sob and elevated bnp likely due to hypertensive emergency causing dchf -no signs acs -bp control -after iv lasix here bun/cr bumped and she does not appear vol overloaded so changed back to home po lasix 20 qd -her remaining sob/herr is a chronic symptom for her, may be have been exacerbated by htn emergency, but otherwise does not appear cardiac in etiology , pulm evaluating as well and is giving empiric trial of steroids for possible copd -recent echo and mibi unremarkable -04/24: Cr stable. BP improved. Continue lasix 20mg daily -04/25: Cr stable, weight up but clinically euvolemic. Continue lasix at current dose. -monitor daily wts le edema/venous insuff: -stable, no sig le edema currently -resumed home lasix 20 po qd htn: -suboptimal control here -bystolic stopped for bradycardia -hydral increased to 50 TID--better controlled -will change losartan to valsartan for much better 24 hr bp coverage -if bp remains controlled, would favor decreasing hydral dose to avoid toxicity potential hld: -cont statin cad s/p remote pci: -stable, no angina, no signs acs -ce's neg x3, ecg w/o ischemic changes -recent mibi and echo unremarkable -cont asa, statin, arb -stopped bb due to bradycardia
--- NOTE | 2017-04-26 10:49 | PN ---
Progress Note, Physician History of Present Illness: pulmonary alert,less dyspneic,anxious - Current Medication List Current Medications: Active Medications Acetaminophen (Tylenol -) 650 mg PO Q4H PRN PRN Reason: FEVER OR PAIN Last Admin: 04/23/17 08:07 Dose: 650 mg Al Hydroxide/Mg Hydroxide (Mylanta Oral Suspension -) 30 ml PO Q6HPO PRN PRN Reason: INDIGESTION Albuterol Sulfate (Ventolin 0.083% Nebulizer Soln -) 1 amp NEB Q6H PRN PRN Reason: SHORT OF BREATH/WHEEZING Last Admin: 04/21/17 20:20 Dose: 1 amp Alprazolam (Xanax -) 0.25 mg PO TID [facility] Last Admin: 04/26/17 05:44 Dose: 0.25 mg Aspirin (Asa -) 81 mg PO DAILY [facility] Last Admin: 04/26/17 09:30 Dose: 81 mg Atorvastatin Calcium (Lipitor -) 40 mg PO HS [facility] Last Admin: 04/25/17 21:30 Dose: 40 mg Budesonide/Formoterol Fumarate (Symbicort 80/4.5mcg -) 2 puff IH BID [facility] Last Admin: 04/26/17 09:31 Dose: 2 puff Cyanocobalamin (Vitamin B12 -) 1,000 mcg PO DAILY [facility] Last Admin: 04/26/17 09:30 Dose: 1,000 mcg Escitalopram Oxalate (Lexapro -) 10 mg PO DAILY [facility] Last Admin: 04/26/17 09:30 Dose: 10 mg Fluticasone Propionate (Flonase -) 1 spray NS DAILY [facility] Last Admin: 04/26/17 09:31 Dose: 1 spray Furosemide (Lasix -) 20 mg PO DAILY [facility] Last Admin: 04/26/17 09:30 Dose: 20 mg Hydralazine HCl (Apresoline -) 50 mg PO TID [facility] Last Admin: 04/26/17 05:44 Dose: 50 mg Levothyroxine Sodium (Synthroid -) 100 mcg PO DAILY@0700 [facility] Last Admin: 04/26/17 06:34 Dose: 100 mcg Methylprednisolone Sodium Succinate (Solu-Medrol -) 40 mg IVPB BID [facility] Last Admin: 04/26/17 09:30 Dose: 40 mg Pantoprazole Sodium (Protonix -) 40 mg PO DAILY [facility] Last Admin: 04/26/17 09:30 Dose: 40 mg Polyethylene Glycol (Miralax (For Daily Use) -) 17 gm PO DAILY [facility] Last Admin: 04/25/17 10:11 Dose: Not Given Valsartan (Diovan -) 320 mg PO DAILY [facility] - Objective Vital Signs: Vital Signs Temperature 98.2 F 04/26/17 08:00 Pulse Rate 66 04/26/17 08:00 Respiratory Rate 16 04/26/17 08:00 Blood Pressure 144/58 04/26/17 08:00 O2 Sat by Pulse Oximetry (%) 96 04/25/17 22:00 Constitutional: Yes: Well Nourished, Anxious Eyes: Yes: WNL HENT: Yes: WNL Neck: Yes: WNL Cardiovascular: Yes: Regular Rate and Rhythm, S1, S2 Respiratory: Yes: Diminished Gastrointestinal: Yes: Normal Bowel Sounds, Soft Extremities: Yes: WNL Edema: No Labs: CBC, BMP 04/26/17 05:35 04/26/17 05:35 Problem List - Problems (1) Congestive cardiac failure Code(s): I50.9 - HEART FAILURE, UNSPECIFIED Qualifiers: Congestive heart failure type: unspecified congestive heart failure type Congestive heart failure chronicity: unspecified congestive heart failure chronicity Qualified Code(s): I50.9 - Heart failure, unspecified (2) Hypothyroid Code(s): E03.9 - HYPOTHYROIDISM, UNSPECIFIED (3) Shortness of breath Code(s): R06.02 - SHORTNESS OF BREATH (4) Acute on chronic diastolic (congestive) heart failure Code(s): I50.33 - ACUTE ON CHRONIC DIASTOLIC (CONGESTIVE) HEART FAILURE (5) Coronary artery disease Code(s): I25.10 - ATHSCL HEART DISEASE OF [place] CORONARY ARTERY W/O ANG PCTRS Qualifiers: Coronary Disease-Associated Artery/Lesion type: [place] artery [place] vs. transplanted heart: [place] heart Associated angina: without angina Qualified Code(s): I25.10 - Atherosclerotic heart disease of [place] coronary artery without angina pectoris (6) Dyspnea Code(s): R06.00 - DYSPNEA, UNSPECIFIED Qualifiers: Dyspnea type: dyspnea on exertion Qualified Code(s): R06.09 - Other forms of dyspnea (7) Edema Code(s): R60.9 - EDEMA, UNSPECIFIED Qualifiers: Edema type: localized Qualified Code(s): R60.0 - Localized edema (8) H/O heart artery stent Code(s): Z95.5 - PRESENCE OF CORONARY ANGIOPLASTY IMPLANT AND GRAFT (9) Hyperlipidemia Code(s): E78.5 - HYPERLIPIDEMIA, UNSPECIFIED Qualifiers: Hyperlipidemia type: Pure hypercholesterolemia (10) Hypertension Code(s): I10 - ESSENTIAL (PRIMARY) HYPERTENSION Qualifiers: Hypertension type: essential hypertension Qualified Code(s): I10 - Essential (primary) hypertension (11) Hypertensive urgency Code(s): I16.0 - HYPERTENSIVE URGENCY Assessment/Plan IMP HYPERTENSIVE URGENCY IMPROVED DIASTOLIC HF DYSPNEA LIKELY SECONDARY TO HF HTN H/O URIs + SECOND HAND SMOKE EXPOSURE PLAN BP CONTROL INHALED BRONCHODILATORS PRN STEROID TAPER DIURETICS O2 PRN CHECK O2 SAT POST EXERCISE DR JANSEN Problem List - Problems (1) Congestive cardiac failure Code(s): I50.9 - HEART FAILURE, UNSPECIFIED Qualifiers: Congestive heart failure type: unspecified congestive heart failure type Congestive heart failure chronicity: unspecified congestive heart failure chronicity Qualified Code(s): I50.9 - Heart failure, unspecified (2) Hypothyroid Code(s): E03.9 - HYPOTHYROIDISM, UNSPECIFIED (3) Shortness of breath Code(s): R06.02 - SHORTNESS OF BREATH (4) Acute on chronic diastolic (congestive) heart failure Code(s): I50.33 - ACUTE ON CHRONIC DIASTOLIC (CONGESTIVE) HEART FAILURE (5) Coronary artery disease Code(s): I25.10 - ATHSCL HEART DISEASE OF [place] CORONARY ARTERY W/O ANG PCTRS Qualifiers: Coronary Disease-Associated Artery/Lesion type: [place] artery [place] vs. transplanted heart: [place] heart Associated angina: without angina Qualified Code(s): I25.10 - Atherosclerotic heart disease of [place] coronary artery without angina pectoris (6) Dyspnea Code(s): R06.00 - DYSPNEA, UNSPECIFIED Qualifiers: Dyspnea type: dyspnea on exertion Qualified Code(s): R06.09 - Other forms of dyspnea (7) Edema Code(s): R60.9 - EDEMA, UNSPECIFIED Qualifiers: Edema type: localized Qualified Code(s): R60.0 - Localized edema (8) H/O heart artery stent Code(s): Z95.5 - PRESENCE OF CORONARY ANGIOPLASTY IMPLANT AND GRAFT (9) Hyperlipidemia Code(s): E78.5 - HYPERLIPIDEMIA, UNSPECIFIED Qualifiers: Hyperlipidemia type: Pure hypercholesterolemia (10) Hypertension Code(s): I10 - ESSENTIAL (PRIMARY) HYPERTENSION Qualifiers: Hypertension type: essential hypertension Qualified Code(s): I10 - Essential (primary) hypertension (11) Hypertensive urgency Code(s): I16.0 - HYPERTENSIVE URGENCY
--- NOTE | 2017-04-26 11:50 | PN ---
Progress Note, Physician Chief Complaint: Ms Dorantes says she is still short of breath but improving. No cp or n/v. Ambulated in [place] over the weekend. - Current Medication List Current Medications: Active Medications Acetaminophen (Tylenol -) 650 mg PO Q4H PRN PRN Reason: FEVER OR PAIN Last Admin: 04/23/17 08:07 Dose: 650 mg Al Hydroxide/Mg Hydroxide (Mylanta Oral Suspension -) 30 ml PO Q6HPO PRN PRN Reason: INDIGESTION Albuterol Sulfate (Ventolin 0.083% Nebulizer Soln -) 1 amp NEB Q6H PRN PRN Reason: SHORT OF BREATH/WHEEZING Last Admin: 04/21/17 20:20 Dose: 1 amp Alprazolam (Xanax -) 0.25 mg PO TID [facility] Last Admin: 04/26/17 05:44 Dose: 0.25 mg Aspirin (Asa -) 81 mg PO DAILY [facility] Last Admin: 04/26/17 09:30 Dose: 81 mg Atorvastatin Calcium (Lipitor -) 40 mg PO HS [facility] Last Admin: 04/25/17 21:30 Dose: 40 mg Budesonide/Formoterol Fumarate (Symbicort 80/4.5mcg -) 2 puff IH BID [facility] Last Admin: 04/26/17 09:31 Dose: 2 puff Cyanocobalamin (Vitamin B12 -) 1,000 mcg PO DAILY [facility] Last Admin: 04/26/17 09:30 Dose: 1,000 mcg Escitalopram Oxalate (Lexapro -) 10 mg PO DAILY [facility] Last Admin: 04/26/17 09:30 Dose: 10 mg Fluticasone Propionate (Flonase -) 1 spray NS DAILY [facility] Last Admin: 04/26/17 09:31 Dose: 1 spray Furosemide (Lasix -) 20 mg PO DAILY [facility] Last Admin: 04/26/17 09:30 Dose: 20 mg Hydralazine HCl (Apresoline -) 50 mg PO TID [facility] Last Admin: 04/26/17 05:44 Dose: 50 mg Levothyroxine Sodium (Synthroid -) 100 mcg PO DAILY@0700 [facility] Last Admin: 04/26/17 06:34 Dose: 100 mcg Methylprednisolone Sodium Succinate (Solu-Medrol -) 40 mg IVPB BID [facility] Last Admin: 04/26/17 09:30 Dose: 40 mg Pantoprazole Sodium (Protonix -) 40 mg PO DAILY [facility] Last Admin: 04/26/17 09:30 Dose: 40 mg Polyethylene Glycol (Miralax (For Daily Use) -) 17 gm PO DAILY [facility] Last Admin: 04/25/17 10:11 Dose: Not Given Valsartan (Diovan -) 320 mg PO DAILY [facility] - Objective Vital Signs: Vital Signs Temperature 98.2 F 04/26/17 08:00 Pulse Rate 66 04/26/17 08:00 Respiratory Rate 16 04/26/17 08:00 Blood Pressure 144/58 04/26/17 08:00 O2 Sat by Pulse Oximetry (%) 96 04/25/17 22:00 Constitutional: Yes: Well Nourished, No Distress, Calm Cardiovascular: Yes: Regular Rate and Rhythm. No: Gallop, Murmur, Rub Respiratory: Yes: Regular, CTA Bilaterally, Cough (dry, with exhalation), On Nasal O2. No: Rales, Rhonchi, Wheezes Gastrointestinal: Yes: Normal Bowel Sounds, Soft. No: Distention, Tenderness Extremities: Yes: WNL Edema: No Labs: CBC, BMP 04/26/17 05:35 04/26/17 05:35 Problem List - Problems (1) Acute on chronic diastolic (congestive) heart failure Code(s): I50.33 - ACUTE ON CHRONIC DIASTOLIC (CONGESTIVE) HEART FAILURE (2) Hypertensive emergency Code(s): I16.1 - HYPERTENSIVE EMERGENCY (3) Coronary artery disease Code(s): I25.10 - ATHSCL HEART DISEASE OF [place] CORONARY ARTERY W/O ANG PCTRS Qualifiers: Coronary Disease-Associated Artery/Lesion type: [place] artery [place] vs. transplanted heart: [place] heart Associated angina: without angina Qualified Code(s): I25.10 - Atherosclerotic heart disease of [place] coronary artery without angina pectoris (4) Hyperlipidemia Code(s): E78.5 - HYPERLIPIDEMIA, UNSPECIFIED Qualifiers: Hyperlipidemia type: Pure hypercholesterolemia (5) Reflux esophagitis Code(s): K21.0 - GASTRO-ESOPHAGEAL REFLUX DISEASE WITH ESOPHAGITIS (6) Emphysema of lung Code(s): J43.9 - EMPHYSEMA, UNSPECIFIED Qualifiers: Emphysema type: unspecified Qualified Code(s): J43.9 - Emphysema, unspecified (7) Hypothyroid Code(s): E03.9 - HYPOTHYROIDISM, UNSPECIFIED Assessment/Plan (1) Acute on chronic diastolic (congestive) heart failure Assessment/Plan: -appreciated cardiology assistance -continue oral lasix -exacerbation resolved Code(s): I50.33 - ACUTE ON CHRONIC DIASTOLIC (CONGESTIVE) HEART FAILURE (2) Hypertensive emergency Assessment/Plan: -improved -cozaar changed to diovan 320mg daily -hydralazine increased to 50mg tid -lasix 20mg daily -expect to decrease with decreasing steroid dose Code(s): I16.1 - HYPERTENSIVE EMERGENCY (3) Coronary artery disease Assessment/Plan: -no chest pain -continue home regimen -cardiac enzymes x3 negative Code(s): I25.10 - ATHSCL HEART DISEASE OF [place] CORONARY ARTERY W/O ANG PCTRS Qualifiers: Coronary Disease-Associated Artery/Lesion type: [place] artery [place] vs. transplanted heart: [place] heart Associated angina: without angina Qualified Code(s): I25.10 - Atherosclerotic heart disease of [place] coronary artery without angina pectoris (4) Hyperlipidemia Assessment/Plan: -continue statin Code(s): E78.5 - HYPERLIPIDEMIA, UNSPECIFIED Qualifiers: Hyperlipidemia type: Pure hypercholesterolemia (5) Reflux esophagitis Assessment/Plan: -continue PPI Code(s): K21.0 - GASTRO-ESOPHAGEAL REFLUX DISEASE WITH ESOPHAGITIS (6) Emphysema of lung Assessment/Plan: -pulmonary note reviewed -continue oxygen -placed on symbicort -steroid taper per pulmonary Code(s): J43.9 - EMPHYSEMA, UNSPECIFIED Qualifiers: Emphysema type: unspecified Qualified Code(s): J43.9 - Emphysema, unspecified (7) Hypothyroid Assessment/Plan: -continue synthroid -TSH and FT4 within normal limits Code(s): E03.9 - HYPOTHYROIDISM, UNSPECIFIED Dispo -possible discharge in 48 hours if bp is controlled and off IV steroids
--- NOTE | 2017-04-26 15:16 | PN ---
Progress Note (short form) - Note Progress Note: s: no cp palps dizzy; still with mild sob but improving with steroids o: Vital Signs Period Temp Pulse Resp BP Sys/Rios Pulse Ox Last 24 Hr 97.4 F-98.7 F 64-66 16-20 144-156/58-70 96-96 nad no jvd rrr s1s2 no mrg cta bl nl eff aaox3 no le e/c/c abd nt nd pos bs no jaundiced diaphoresis Current Medications Generic Name Dose Route Start Last Admin Trade Name Freq PRN Reason Stop Dose Admin Acetaminophen 650 mg 04/19/17 17:15 04/23/17 08:07 Tylenol - PO 650 mg Q4H PRN Administration FEVER OR PAIN Al Hydroxide/Mg Hydroxide 30 ml 04/20/17 14:05 Mylanta Oral Suspension - PO Q6HPO PRN INDIGESTION Albuterol Sulfate 1 amp 04/20/17 20:32 04/21/17 20:20 Ventolin 0.083% Nebulizer Soln - NEB 1 amp Q6H PRN Administration SHORT OF BREATH/WHEEZING Alprazolam 0.25 mg 04/23/17 12:15 04/26/17 13:30 Xanax - PO 0.25 mg TID [facility] Administration Aspirin 81 mg 04/20/17 10:00 04/26/17 09:30 Asa - PO 81 mg DAILY [facility] Administration Atorvastatin Calcium 40 mg 04/19/17 22:00 04/25/17 21:30 Lipitor - PO 40 mg HS [facility] Administration Budesonide/Formoterol Fumarate 2 puff 04/20/17 13:54 04/26/17 09:31 Symbicort 80/4.5mcg - IH 2 puff BID [facility] Administration Cyanocobalamin 1,000 mcg 04/20/17 10:00 04/26/17 09:30 Vitamin B12 - PO 1,000 mcg DAILY [facility] Administration Escitalopram Oxalate 10 mg 04/20/17 10:00 04/26/17 09:30 Lexapro - PO 10 mg DAILY [facility] Administration Fluticasone Propionate 1 spray 04/21/17 10:00 04/26/17 09:31 Flonase - NS 1 spray DAILY [facility] Administration Furosemide 20 mg 04/21/17 10:00 04/26/17 09:30 Lasix - PO 20 mg DAILY [facility] Administration Hydralazine HCl 50 mg 04/25/17 14:00 04/26/17 13:30 Apresoline - PO 50 mg TID [facility] Administration Levothyroxine Sodium 100 mcg 04/20/17 07:00 04/26/17 06:34 Synthroid - PO 100 mcg DAILY@0700 [facility] Administration Methylprednisolone Sodium Succinate 40 mg 04/24/17 22:00 04/26/17 09:30 Solu-Medrol - IVPB 40 mg BID [facility] Administration Pantoprazole Sodium 40 mg 04/20/17 10:00 04/26/17 09:30 Protonix - PO 40 mg DAILY [facility] Administration Polyethylene Glycol 17 gm 04/20/17 10:00 04/25/17 10:11 Miralax (For Daily Use) - PO Not Given DAILY [facility] Valsartan 320 mg 04/27/17 10:00 Diovan - PO DAILY [facility] CBC, BMP 04/26/17 05:35 04/26/17 05:35 echo 03/2017: nl lv/rv, mild ar/mr mibi 03/2017: nl mpi, nl lvef ecg 04/19/17: sinus indira, pacs, 1st deg avb, nl qtc, no ischemic changes cxr: no chf tele: sr, occ pvcs a/p: 81 f hx htn, hld, hypothyroid, cad s/p pci 2007 (lad), le edema/venous insuff, chronic URIs sent to er by pmd for htn and sob. sob, acute diastolic chf likely secondary to hypertensive emergency: -sob and elevated bnp likely due to hypertensive emergency causing dchf -no signs acs -after iv lasix here bun/cr bumped and she does not appear vol overloaded so changed back to home po lasix 20 qd -her remaining sob/herr is a chronic symptom for her, may be have been exacerbated by htn emergency, but otherwise does not appear cardiac in etiology , pulm following and now on trial of steroids for possible copd-->sob a little better per pt -recent echo and mibi unremarkable le edema/venous insuff: -stable, no sig le edema currently -resumed home lasix 20 po qd htn: -cont current cozaar and hydralazine. She was indira with bystolic so stopped here. she had worse le edema with ccb so will avoid as well. hld: -cont statin cad s/p remote pci: -stable, no angina, no signs acs -ce's neg x3, ecg w/o ischemic changes -recent mibi and echo unremarkable -cont asa, statin, arb -stopped bb due to bradycardia can dc tele
[2017-04-26] MEDS: POLYETHYLENE GLYCOL 3350 119 GM BTL PO SCH (16:58)
[2017-04-26] MEDS: ATORVASTATIN CA 40 MG TABLET (FP) PO SCH (22:12)
[2017-04-27] MEDS: LEVOTHYROXINE NA 100 MCG TABLET (FP) PO SCH (06:55)
[2017-04-27] MEDS: ALPRAZolam 0.25 MG TABLET PO SCH ×3 (06:55→21:14)
[2017-04-27] MEDS: hydrALAZINE HCL 50 MG TABLET (FP) PO SCH ×3 (06:55→21:14)
[2017-04-27 07:53] LABS: ANION GAP 6 (8-16); CALCIUM 8.5 mg/dL (8.5-10.1); CO2 26 mmol/L (21-32); CREATININE 0.9 mg/dL (0.55-1.02); GLUCOSE,RANDOM 106 mg/dL (74-106); MAGNESIUM 2.2 mg/dL (1.8-2.4); PHOSPHOROUS 3.8 mg/dL (2.5-4.9)
[2017-04-27 08:00] LABS: BASOPHIL 0.2 % (0-2.0); MCH 23.5 pg (25.7-33.7); MCHC 32.4 g/dl (32.0-36.0); MEAN CELL VOLUME 72.5 fl (80-96); NEUTROPHILS 79.3 % (42.8-82.8); PLATELET COUNT 252 K/MM3 (134-434); RDW 19.3 % (11.6-15.6); WHITE BLOOD COUNT 6.7 K/mm3 (4.0-10.0)
[2017-04-27] MEDS: BUDESONIDE/FORMETEROL FUMARATE 80/4.5 mcg INHALER IH SCH ×2 (09:16→21:15)
[2017-04-27] MEDS: FLUTICASONE PROP 0.05% 16 GM NASAL SPRAY NS SCH (09:16)
[2017-04-27] MEDS: VALSARTAN 160 MG TABLET (UD) PO SCH (09:17)
[2017-04-27] MEDS: PANTOPRAZOLE 40 MG TABLET (FP) PO SCH (09:17)
[2017-04-27] MEDS: CYANOCOBALAMIN 1,000 MCG TABLET (FP) PO SCH (09:17)
[2017-04-27] MEDS: methylPREDNISolone NA SUCC 40 MG/1 ML VIAL IVPB SCH ×2 (09:17→21:14)
[2017-04-27] MEDS: ESCITALOPRAM OXALATE 10 MG TABLET (FP) PO SCH (09:17)
[2017-04-27] MEDS: FUROSEMIDE 20 MG TABLET (FP) PO SCH (09:17)
[2017-04-27] MEDS: POLYETHYLENE GLYCOL 3350 119 GM BTL PO SCH (09:18)
[2017-04-27] MEDS: ASPIRIN 81 MG CHEWABLE TABLETS PO SCH (09:18)
--- NOTE | 2017-04-27 11:00 | PN ---
Progress Note, Physician History of Present Illness: PULMONARY ALERT,FEELING BETTER,LESS DYSPNEIC - Current Medication List Current Medications: Active Medications Acetaminophen (Tylenol -) 650 mg PO Q4H PRN PRN Reason: FEVER OR PAIN Last Admin: 04/23/17 08:07 Dose: 650 mg Al Hydroxide/Mg Hydroxide (Mylanta Oral Suspension -) 30 ml PO Q6HPO PRN PRN Reason: INDIGESTION Albuterol Sulfate (Ventolin 0.083% Nebulizer Soln -) 1 amp NEB Q6H PRN PRN Reason: SHORT OF BREATH/WHEEZING Last Admin: 04/21/17 20:20 Dose: 1 amp Alprazolam (Xanax -) 0.25 mg PO TID [facility] Last Admin: 04/27/17 06:55 Dose: 0.25 mg Aspirin (Asa -) 81 mg PO DAILY [facility] Last Admin: 04/27/17 09:18 Dose: 81 mg Atorvastatin Calcium (Lipitor -) 40 mg PO HS [facility] Last Admin: 04/26/17 22:12 Dose: 40 mg Budesonide/Formoterol Fumarate (Symbicort 80/4.5mcg -) 2 puff IH BID [facility] Last Admin: 04/27/17 09:16 Dose: 2 puff Cyanocobalamin (Vitamin B12 -) 1,000 mcg PO DAILY [facility] Last Admin: 04/27/17 09:17 Dose: 1,000 mcg Escitalopram Oxalate (Lexapro -) 10 mg PO DAILY [facility] Last Admin: 04/27/17 09:17 Dose: 10 mg Fluticasone Propionate (Flonase -) 1 spray NS DAILY [facility] Last Admin: 04/27/17 09:16 Dose: 1 spray Furosemide (Lasix -) 20 mg PO DAILY [facility] Last Admin: 04/27/17 09:17 Dose: 20 mg Hydralazine HCl (Apresoline -) 50 mg PO TID [facility] Last Admin: 04/27/17 06:55 Dose: 50 mg Levothyroxine Sodium (Synthroid -) 100 mcg PO DAILY@0700 [facility] Last Admin: 04/27/17 06:55 Dose: 100 mcg Methylprednisolone Sodium Succinate (Solu-Medrol -) 40 mg IVPB BID [facility] Last Admin: 04/27/17 09:17 Dose: 40 mg Pantoprazole Sodium (Protonix -) 40 mg PO DAILY [facility] Last Admin: 04/27/17 09:17 Dose: 40 mg Polyethylene Glycol (Miralax (For Daily Use) -) 17 gm PO DAILY [facility] Last Admin: 04/27/17 09:18 Dose: 17 gm Valsartan (Diovan -) 320 mg PO DAILY [facility] Last Admin: 04/27/17 09:17 Dose: 320 mg - Objective Vital Signs: Vital Signs Temperature 98.2 F 04/27/17 08:15 Pulse Rate 72 04/27/17 08:15 Respiratory Rate 16 04/27/17 08:15 Blood Pressure 126/58 04/27/17 08:15 O2 Sat by Pulse Oximetry (%) 96 04/26/17 22:00 Constitutional: Yes: Well Nourished, Calm Eyes: Yes: WNL HENT: Yes: WNL Neck: Yes: WNL Cardiovascular: Yes: Regular Rate and Rhythm, S1, S2 Respiratory: Yes: Diminished Gastrointestinal: Yes: Normal Bowel Sounds, Soft Extremities: Yes: WNL Edema: No Labs: CBC, BMP 04/27/17 05:35 04/27/17 05:35 Problem List - Problems (1) Congestive cardiac failure Code(s): I50.9 - HEART FAILURE, UNSPECIFIED Qualifiers: Congestive heart failure type: unspecified congestive heart failure type Congestive heart failure chronicity: unspecified congestive heart failure chronicity Qualified Code(s): I50.9 - Heart failure, unspecified (2) Hypothyroid Code(s): E03.9 - HYPOTHYROIDISM, UNSPECIFIED (3) Shortness of breath Code(s): R06.02 - SHORTNESS OF BREATH (4) Acute on chronic diastolic (congestive) heart failure Code(s): I50.33 - ACUTE ON CHRONIC DIASTOLIC (CONGESTIVE) HEART FAILURE (5) Coronary artery disease Code(s): I25.10 - ATHSCL HEART DISEASE OF [place] CORONARY ARTERY W/O ANG PCTRS Qualifiers: Coronary Disease-Associated Artery/Lesion type: [place] artery [place] vs. transplanted heart: [place] heart Associated angina: without angina Qualified Code(s): I25.10 - Atherosclerotic heart disease of [place] coronary artery without angina pectoris (6) Dyspnea Code(s): R06.00 - DYSPNEA, UNSPECIFIED Qualifiers: Dyspnea type: dyspnea on exertion Qualified Code(s): R06.09 - Other forms of dyspnea (7) Edema Code(s): R60.9 - EDEMA, UNSPECIFIED Qualifiers: Edema type: localized Qualified Code(s): R60.0 - Localized edema (8) H/O heart artery stent Code(s): Z95.5 - PRESENCE OF CORONARY ANGIOPLASTY IMPLANT AND GRAFT (9) Hyperlipidemia Code(s): E78.5 - HYPERLIPIDEMIA, UNSPECIFIED Qualifiers: Hyperlipidemia type: Pure hypercholesterolemia (10) Hypertension Code(s): I10 - ESSENTIAL (PRIMARY) HYPERTENSION Qualifiers: Hypertension type: essential hypertension Qualified Code(s): I10 - Essential (primary) hypertension (11) Hypertensive urgency Code(s): I16.0 - HYPERTENSIVE URGENCY Assessment/Plan IMP HYPERTENSIVE URGENCY IMPROVED DIASTOLIC HF DYSPNEA LIKELY SECONDARY TO HF HTN H/O URIs + SECOND HAND SMOKE EXPOSURE PLAN BP CONTROL INHALED BRONCHODILATORS PRN STEROID TAPER DIURETICS PER CARDIOLOGY O2 PRN CHECK O2 SAT POST EXERCISE DR JANSEN Problem List - Problems (1) Congestive cardiac failure Code(s): I50.9 - HEART FAILURE, UNSPECIFIED Qualifiers: Congestive heart failure type: unspecified congestive heart failure type Congestive heart failure chronicity: unspecified congestive heart failure chronicity Qualified Code(s): I50.9 - Heart failure, unspecified (2) Hypothyroid Code(s): E03.9 - HYPOTHYROIDISM, UNSPECIFIED (3) Shortness of breath Code(s): R06.02 - SHORTNESS OF BREATH (4) Acute on chronic diastolic (congestive) heart failure Code(s): I50.33 - ACUTE ON CHRONIC DIASTOLIC (CONGESTIVE) HEART FAILURE (5) Coronary artery disease Code(s): I25.10 - ATHSCL HEART DISEASE OF [place] CORONARY ARTERY W/O ANG PCTRS Qualifiers: Coronary Disease-Associated Artery/Lesion type: [place] artery [place] vs. transplanted heart: [place] heart Associated angina: without angina Qualified Code(s): I25.10 - Atherosclerotic heart disease of [place] coronary artery without angina pectoris (6) Dyspnea Code(s): R06.00 - DYSPNEA, UNSPECIFIED Qualifiers: Dyspnea type: dyspnea on exertion Qualified Code(s): R06.09 - Other forms of dyspnea (7) Edema Code(s): R60.9 - EDEMA, UNSPECIFIED Qualifiers: Edema type: localized Qualified Code(s): R60.0 - Localized edema (8) H/O heart artery stent Code(s): Z95.5 - PRESENCE OF CORONARY ANGIOPLASTY IMPLANT AND GRAFT (9) Hyperlipidemia Code(s): E78.5 - HYPERLIPIDEMIA, UNSPECIFIED Qualifiers: Hyperlipidemia type: Pure hypercholesterolemia (10) Hypertension Code(s): I10 - ESSENTIAL (PRIMARY) HYPERTENSION Qualifiers: Hypertension type: essential hypertension Qualified Code(s): I10 - Essential (primary) hypertension (11) Hypertensive urgency Code(s): I16.0 - HYPERTENSIVE URGENCY
--- NOTE | 2017-04-27 11:41 | PN ---
Progress Note (short form) - Note Progress Note: s: no cp palps dizzy; still with mild sob but improving with steroids o: Vital Signs Period Temp Pulse Resp BP Sys/Rios Pulse Ox Last 24 Hr 97.6 F-98.2 F 64-72 16-20 126-154/58-68 96-97 nad no jvd rrr s1s2 no mrg cta bl nl eff aaox3 no le e/c/c abd nt nd pos bs no jaundiced diaphoresis Current Medications Generic Name Dose Route Start Last Admin Trade Name Freq PRN Reason Stop Dose Admin Acetaminophen 650 mg 04/19/17 17:15 04/23/17 08:07 Tylenol - PO 650 mg Q4H PRN Administration FEVER OR PAIN Al Hydroxide/Mg Hydroxide 30 ml 04/20/17 14:05 Mylanta Oral Suspension - PO Q6HPO PRN INDIGESTION Albuterol Sulfate 1 amp 04/20/17 20:32 04/21/17 20:20 Ventolin 0.083% Nebulizer Soln - NEB 1 amp Q6H PRN Administration SHORT OF BREATH/WHEEZING Alprazolam 0.25 mg 04/23/17 12:15 04/27/17 06:55 Xanax - PO 0.25 mg TID [facility] Administration Aspirin 81 mg 04/20/17 10:00 04/27/17 09:18 Asa - PO 81 mg DAILY [facility] Administration Atorvastatin Calcium 40 mg 04/19/17 22:00 04/26/17 22:12 Lipitor - PO 40 mg HS [facility] Administration Budesonide/Formoterol Fumarate 2 puff 04/20/17 13:54 04/27/17 09:16 Symbicort 80/4.5mcg - IH 2 puff BID [facility] Administration Cyanocobalamin 1,000 mcg 04/20/17 10:00 04/27/17 09:17 Vitamin B12 - PO 1,000 mcg DAILY [facility] Administration Escitalopram Oxalate 10 mg 04/20/17 10:00 04/27/17 09:17 Lexapro - PO 10 mg DAILY [facility] Administration Fluticasone Propionate 1 spray 04/21/17 10:00 04/27/17 09:16 Flonase - NS 1 spray DAILY [facility] Administration Furosemide 20 mg 04/21/17 10:00 04/27/17 09:17 Lasix - PO 20 mg DAILY [facility] Administration Hydralazine HCl 50 mg 04/25/17 14:00 04/27/17 06:55 Apresoline - PO 50 mg TID [facility] Administration Levothyroxine Sodium 100 mcg 04/20/17 07:00 04/27/17 06:55 Synthroid - PO 100 mcg DAILY@0700 [facility] Administration Methylprednisolone Sodium Succinate 30 mg 04/27/17 22:00 Solu-Medrol - IVPB BID [facility] Pantoprazole Sodium 40 mg 04/20/17 10:00 04/27/17 09:17 Protonix - PO 40 mg DAILY [facility] Administration Polyethylene Glycol 17 gm 04/20/17 10:00 04/27/17 09:18 Miralax (For Daily Use) - PO 17 gm DAILY [facility] Administration Valsartan 320 mg 04/27/17 10:00 04/27/17 09:17 Diovan - PO 320 mg DAILY [facility] Administration CBC, BMP 04/27/17 05:35 04/27/17 05:35 echo 03/2017: nl lv/rv, mild ar/mr mibi 03/2017: nl mpi, nl lvef ecg 04/19/17: sinus indira, pacs, 1st deg avb, nl qtc, no ischemic changes a/p: 81 f hx htn, hld, hypothyroid, cad s/p pci 2007 (lad), le edema/venous insuff, chronic URIs sent to er by pmd for htn and sob. sob, acute diastolic chf likely secondary to hypertensive emergency: -sob and elevated bnp likely due to hypertensive emergency causing dchf -no signs acs -after iv lasix here bun/cr bumped and she does not appear vol overloaded so changed back to home po lasix 20 qd -her remaining sob/herr is a chronic symptom for her, may be have been exacerbated by htn emergency, but otherwise does not appear cardiac in etiology , pulm following and now on trial of steroids for possible copd-->sob has been improving, continued plans per pulm -recent echo and mibi unremarkable le edema/venous insuff: -stable, no sig le edema currently -resumed home lasix 20 po qd htn: -cont current cozaar and hydralazine. She was indira with bystolic so stopped here. she had worse le edema with ccb so will avoid as well. hld: -cont statin cad s/p remote pci: -stable, no angina, no signs acs -ce's neg x3, ecg w/o ischemic changes -recent mibi and echo unremarkable -cont asa, statin, arb -stopped bb due to bradycardia
--- NOTE | 2017-04-27 15:32 | PN ---
Progress Note, Physician Chief Complaint: Ms Dorantes says she is feeling good today. Breathing improved. No cp, sob, n/v. Up ambulating without difficulty. - Current Medication List Current Medications: Active Medications Acetaminophen (Tylenol -) 650 mg PO Q4H PRN PRN Reason: FEVER OR PAIN Last Admin: 04/23/17 08:07 Dose: 650 mg Al Hydroxide/Mg Hydroxide (Mylanta Oral Suspension -) 30 ml PO Q6HPO PRN PRN Reason: INDIGESTION Albuterol Sulfate (Ventolin 0.083% Nebulizer Soln -) 1 amp NEB Q6H PRN PRN Reason: SHORT OF BREATH/WHEEZING Last Admin: 04/21/17 20:20 Dose: 1 amp Alprazolam (Xanax -) 0.25 mg PO TID [facility] Last Admin: 04/27/17 13:22 Dose: 0.25 mg Aspirin (Asa -) 81 mg PO DAILY [facility] Last Admin: 04/27/17 09:18 Dose: 81 mg Atorvastatin Calcium (Lipitor -) 40 mg PO HS [facility] Last Admin: 04/26/17 22:12 Dose: 40 mg Budesonide/Formoterol Fumarate (Symbicort 80/4.5mcg -) 2 puff IH BID [facility] Last Admin: 04/27/17 09:16 Dose: 2 puff Cyanocobalamin (Vitamin B12 -) 1,000 mcg PO DAILY [facility] Last Admin: 04/27/17 09:17 Dose: 1,000 mcg Escitalopram Oxalate (Lexapro -) 10 mg PO DAILY [facility] Last Admin: 04/27/17 09:17 Dose: 10 mg Fluticasone Propionate (Flonase -) 1 spray NS DAILY [facility] Last Admin: 04/27/17 09:16 Dose: 1 spray Furosemide (Lasix -) 20 mg PO DAILY [facility] Last Admin: 04/27/17 09:17 Dose: 20 mg Hydralazine HCl (Apresoline -) 50 mg PO TID [facility] Last Admin: 04/27/17 13:22 Dose: 50 mg Levothyroxine Sodium (Synthroid -) 100 mcg PO DAILY@0700 [facility] Last Admin: 04/27/17 06:55 Dose: 100 mcg Methylprednisolone Sodium Succinate (Solu-Medrol -) 30 mg IVPB BID [facility] Pantoprazole Sodium (Protonix -) 40 mg PO DAILY [facility] Last Admin: 04/27/17 09:17 Dose: 40 mg Polyethylene Glycol (Miralax (For Daily Use) -) 17 gm PO DAILY [facility] Last Admin: 04/27/17 09:18 Dose: 17 gm Valsartan (Diovan -) 320 mg PO DAILY [facility] Last Admin: 04/27/17 09:17 Dose: 320 mg - Objective Vital Signs: Vital Signs Temperature 97.7 F 04/27/17 14:00 Pulse Rate 71 04/27/17 14:00 Respiratory Rate 20 04/27/17 14:00 Blood Pressure 131/56 04/27/17 14:00 O2 Sat by Pulse Oximetry (%) 97 04/27/17 09:25 Constitutional: Yes: Well Nourished, No Distress, Calm Cardiovascular: Yes: Regular Rate and Rhythm. No: Gallop, Murmur, Rub Respiratory: Yes: Regular, CTA Bilaterally. No: Rales, Rhonchi, Wheezes Gastrointestinal: Yes: Normal Bowel Sounds, Soft. No: Distention, Tenderness Extremities: Yes: WNL Edema: No Labs: CBC, BMP 04/27/17 05:35 04/27/17 05:35 Problem List - Problems (1) Acute on chronic diastolic (congestive) heart failure Code(s): I50.33 - ACUTE ON CHRONIC DIASTOLIC (CONGESTIVE) HEART FAILURE (2) Hypertensive emergency Code(s): I16.1 - HYPERTENSIVE EMERGENCY (3) Coronary artery disease Code(s): I25.10 - ATHSCL HEART DISEASE OF [place] CORONARY ARTERY W/O ANG PCTRS Qualifiers: Coronary Disease-Associated Artery/Lesion type: [place] artery [place] vs. transplanted heart: [place] heart Associated angina: without angina Qualified Code(s): I25.10 - Atherosclerotic heart disease of [place] coronary artery without angina pectoris (4) Hyperlipidemia Code(s): E78.5 - HYPERLIPIDEMIA, UNSPECIFIED Qualifiers: Hyperlipidemia type: Pure hypercholesterolemia (5) Reflux esophagitis Code(s): K21.0 - GASTRO-ESOPHAGEAL REFLUX DISEASE WITH ESOPHAGITIS (6) Emphysema of lung Code(s): J43.9 - EMPHYSEMA, UNSPECIFIED Qualifiers: Emphysema type: unspecified Qualified Code(s): J43.9 - Emphysema, unspecified (7) Hypothyroid Code(s): E03.9 - HYPOTHYROIDISM, UNSPECIFIED Assessment/Plan (1) Acute on chronic diastolic (congestive) heart failure Assessment/Plan: -appreciated cardiology assistance -continue oral lasix -exacerbation resolved Code(s): I50.33 - ACUTE ON CHRONIC DIASTOLIC (CONGESTIVE) HEART FAILURE (2) Hypertensive emergency Assessment/Plan: -controlled -cozaar changed to diovan 320mg daily -hydralazine increased to 50mg tid -lasix 20mg daily -expect to decrease with decreasing steroid dose Code(s): I16.1 - HYPERTENSIVE EMERGENCY (3) Coronary artery disease Assessment/Plan: -no chest pain -continue home regimen -cardiac enzymes x3 negative Code(s): I25.10 - ATHSCL HEART DISEASE OF [place] CORONARY ARTERY W/O ANG PCTRS Qualifiers: Coronary Disease-Associated Artery/Lesion type: [place] artery [place] vs. transplanted heart: [place] heart Associated angina: without angina Qualified Code(s): I25.10 - Atherosclerotic heart disease of [place] coronary artery without angina pectoris (4) Hyperlipidemia Assessment/Plan: -continue statin Code(s): E78.5 - HYPERLIPIDEMIA, UNSPECIFIED Qualifiers: Hyperlipidemia type: Pure hypercholesterolemia (5) Reflux esophagitis Assessment/Plan: -continue PPI Code(s): K21.0 - GASTRO-ESOPHAGEAL REFLUX DISEASE WITH ESOPHAGITIS (6) Emphysema of lung Assessment/Plan: -pulmonary note reviewed -continue oxygen -placed on symbicort -solumedrol changed to 30mg bid -can discharge home when changed to oral prednisone -pre and post prior to discharge Code(s): J43.9 - EMPHYSEMA, UNSPECIFIED Qualifiers: Emphysema type: unspecified Qualified Code(s): J43.9 - Emphysema, unspecified (7) Hypothyroid Assessment/Plan: -continue synthroid -TSH and FT4 within normal limits Code(s): E03.9 - HYPOTHYROIDISM, UNSPECIFIED Dispo -discharge home when transitioned to prednisone taper
[2017-04-27] MEDS: ATORVASTATIN CA 40 MG TABLET (FP) PO SCH (21:14)
[2017-04-28] MEDS: ALPRAZolam 0.25 MG TABLET PO SCH ×3 (06:09→22:06)
[2017-04-28] MEDS: hydrALAZINE HCL 50 MG TABLET (FP) PO SCH ×3 (06:09→22:06)
[2017-04-28] MEDS: LEVOTHYROXINE NA 100 MCG TABLET (FP) PO SCH (06:09)
[2017-04-28 08:56] LABS: BASOPHIL 0.2 % (0-2.0); MCH 23.2 pg (25.7-33.7); MCHC 32.1 g/dl (32.0-36.0); MEAN CELL VOLUME 72.2 fl (80-96); MEAN PLT VOLUME 8.8 fl (7.5-11.1); NEUTROPHILS 73.2 % (42.8-82.8); PLATELET COUNT 359 K/MM3 (134-434); RDW 19.2 % (11.6-15.6); WHITE BLOOD COUNT 9.6 K/mm3 (4.0-10.0)
[2017-04-28 09:27] LABS: ANION GAP 10 (8-16); CALCIUM 9.4 mg/dL (8.5-10.1); CO2 25 mmol/L (21-32); CREATININE 0.9 mg/dL (0.55-1.02); GLUCOSE,RANDOM 106 mg/dL (74-106); MAGNESIUM 2.5 mg/dL (1.8-2.4); PHOSPHOROUS 3.8 mg/dL (2.5-4.9)
[2017-04-28] MEDS: ASPIRIN 81 MG CHEWABLE TABLETS PO SCH (09:30)
[2017-04-28] MEDS: VALSARTAN 160 MG TABLET (UD) PO SCH (09:30)
[2017-04-28] MEDS: BUDESONIDE/FORMETEROL FUMARATE 80/4.5 mcg INHALER IH SCH ×2 (09:31→22:25)
[2017-04-28] MEDS: CYANOCOBALAMIN 1,000 MCG TABLET (FP) PO SCH (09:31)
[2017-04-28] MEDS: FUROSEMIDE 20 MG TABLET (FP) PO SCH (09:31)
[2017-04-28] MEDS: methylPREDNISolone NA SUCC 40 MG/1 ML VIAL IVPB SCH (09:31)
[2017-04-28] MEDS: ESCITALOPRAM OXALATE 10 MG TABLET (FP) PO SCH (09:31)
[2017-04-28] MEDS: POLYETHYLENE GLYCOL 3350 119 GM BTL PO SCH (09:32)
[2017-04-28] MEDS: FLUTICASONE PROP 0.05% 16 GM NASAL SPRAY NS SCH (09:32)
[2017-04-28] MEDS: PANTOPRAZOLE 40 MG TABLET (FP) PO SCH (09:32)
--- NOTE | 2017-04-28 12:08 | PN ---
Progress Note (short form) - Note Progress Note: s: no cp palps dizzy; sob much better than on admit; was able to walk in [place] today o: Vital Signs Period Temp Pulse Resp BP Sys/Rios Pulse Ox Last 24 Hr 97.7 F-98.8 F 66-71 18-20 131-156/49-80 97-97 nad no jvd rrr s1s2 no mrg cta bl nl eff aaox3 no le e/c/c abd nt nd pos bs no jaundiced diaphoresis Current Medications Generic Name Dose Route Start Last Admin Trade Name Freq PRN Reason Stop Dose Admin Acetaminophen 650 mg 04/19/17 17:15 04/23/17 08:07 Tylenol - PO 650 mg Q4H PRN Administration FEVER OR PAIN Al Hydroxide/Mg Hydroxide 30 ml 04/20/17 14:05 Mylanta Oral Suspension - PO Q6HPO PRN INDIGESTION Albuterol Sulfate 1 amp 04/20/17 20:32 04/21/17 20:20 Ventolin 0.083% Nebulizer Soln - NEB 1 amp Q6H PRN Administration SHORT OF BREATH/WHEEZING Alprazolam 0.25 mg 04/23/17 12:15 04/28/17 06:09 Xanax - PO 0.25 mg TID [facility] Administration Aspirin 81 mg 04/20/17 10:00 04/28/17 09:30 Asa - PO 81 mg DAILY [facility] Administration Atorvastatin Calcium 40 mg 04/19/17 22:00 04/27/17 21:14 Lipitor - PO 40 mg HS [facility] Administration Budesonide/Formoterol Fumarate 2 puff 04/20/17 13:54 04/28/17 09:31 Symbicort 80/4.5mcg - IH 2 puff BID [facility] Administration Cyanocobalamin 1,000 mcg 04/20/17 10:00 04/28/17 09:31 Vitamin B12 - PO 1,000 mcg DAILY [facility] Administration Escitalopram Oxalate 10 mg 04/20/17 10:00 04/28/17 09:31 Lexapro - PO 10 mg DAILY [facility] Administration Fluticasone Propionate 1 spray 04/21/17 10:00 04/28/17 09:32 Flonase - NS 1 spray DAILY [facility] Administration Furosemide 20 mg 04/21/17 10:00 04/28/17 09:31 Lasix - PO 20 mg DAILY [facility] Administration Hydralazine HCl 50 mg 04/25/17 14:00 04/28/17 06:09 Apresoline - PO 50 mg TID [facility] Administration Levothyroxine Sodium 100 mcg 04/20/17 07:00 04/28/17 06:09 Synthroid - PO 100 mcg DAILY@0700 [facility] Administration Methylprednisolone Sodium Succinate 30 mg 04/27/17 22:00 04/28/17 09:31 Solu-Medrol - IVPB 30 mg BID [facility] Administration Pantoprazole Sodium 40 mg 04/20/17 10:00 04/28/17 09:32 Protonix - PO 40 mg DAILY [facility] Administration Polyethylene Glycol 17 gm 04/20/17 10:00 04/28/17 09:32 Miralax (For Daily Use) - PO 17 gm DAILY [facility] Administration Valsartan 320 mg 04/27/17 10:00 04/28/17 09:30 Diovan - PO 320 mg DAILY [facility] Administration CBC, BMP 04/28/17 06:35 04/28/17 06:35 echo 03/2017: nl lv/rv, mild ar/mr mibi 03/2017: nl mpi, nl lvef ecg 04/19/17: sinus indira, pacs, 1st deg avb, nl qtc, no ischemic changes a/p: 81 f hx htn, hld, hypothyroid, cad s/p pci 2007 (lad), le edema/venous insuff, chronic URIs sent to er by pmd for htn and sob. sob, acute diastolic chf likely secondary to hypertensive emergency: -sob and elevated bnp likely due to hypertensive emergency causing dchf -no signs acs -after iv lasix here bun/cr bumped and she does not appear vol overloaded so changed back to home po lasix 20 qd -her remaining sob/herr is a chronic symptom for her, may be have been exacerbated by htn emergency, but otherwise does not appear cardiac in etiology , pulm following and was started on trial of steroids for possible copd-->sob has been improving so seems to be helping, continued plans per pulm -recent echo and mibi unremarkable le edema/venous insuff: -stable, no sig le edema currently -resumed home lasix 20 po qd htn: -cont current cozaar and hydralazine. She was indira with bystolic so stopped here. she had worse le edema with ccb so will avoid as well. hld: -cont statin cad s/p remote pci: -stable, no angina, no signs acs -ce's neg x3, ecg w/o ischemic changes -recent mibi and echo unremarkable -cont asa, statin, arb -stopped bb due to bradycardia
--- NOTE | 2017-04-28 12:39 | PN ---
Progress Note (short form) - Note Progress Note: PULMONARY VSS/AFEBRILE OFFERS NO COMPLAINTS ANICTERIC CHEST CLEAR S12 BS+ LESS EDEMA LABS/MEDS/NOTES/IMAGES NOTED IMP HYPERTENSIVE URGENCY IMPROVED DIASTOLIC HF DYSPNEA LIKELY SECONDARY TO HF HTN H/O URIs + SECOND HAND SMOKE EXPOSURE PLAN BP CONTROL INHALED BRONCHODILATORS PRN STEROID TAPER OUTPATIENT DIURETICS PER CARDIOLOGY O2 PRN CHECK O2 SAT POST EXERCISE Abundio HAGAN MD
--- NOTE | 2017-04-28 12:44 | DS ---
Physical Examination Vital Signs: Vital Signs Temperature 98.2 F 04/28/17 10:00 Pulse Rate 70 04/28/17 10:00 Respiratory Rate 18 04/28/17 10:00 Blood Pressure 142/62 04/28/17 10:00 O2 Sat by Pulse Oximetry (%) 97 04/28/17 10:00 Labs: CBC, BMP 04/28/17 06:35 04/28/17 06:35 Discharge Summary Reason For Visit: HYPERTENSIVE EMERGENCY; SHORTNESS OF BREATH Current Active Problems Anxiety about health (Acute) Congestive cardiac failure (Acute) Hypertensive emergency (Acute) Hypertensive urgency (Acute) Hypothyroid (Acute) Shortness of breath (Acute) Condition: Good - Instructions Diet, Activity, Other Instructions: resume previous diet and activity Referrals: Mica Taveras MD [Primary Care Provider] - Eren Davidson MD [Staff Physician] - Momo Goodrich MD [Staff Physician] - Disposition: HOME - Home Medications Comprehensive Discharge Medication List: Ambulatory Orders Aspirin [ASA -] 81 mg PO DAILY 04/19/17 Atorvastatin Ca [Lipitor] 40 mg PO HS 04/19/17 Cyanocobalamin (Vitamin B-12) [Vitamin B-12] 1,000 mcg PO DAILY 04/19/17 Escitalopram Oxalate [Lexapro -] 10 mg PO DAILY 04/19/17 Fluticasone Furoate [Flonase Sensimist] 9.9 ml NS DAILY 04/19/17 Furosemide 20 mg PO DAILY 04/19/17 Levothyroxine [Synthroid -] 100 mcg PO DAILY 04/19/17 Mag Carb/Al Hydrox/Alginic AC [Gaviscon Liquid] 15 - 30 ml PO Q6H 04/19/17 Mometasone/Formoterol [Dulera 100 Mcg/5 Mcg Inhaler] 2 inh IH BID 04/19/17 Pantoprazole Sodium 40 mg PO BID 04/19/17 Polyethylene Glycol 3350 [Glycolax] 119 gm PO DAILY 04/19/17 Potassium Chloride [Klor-Con 8] 8 meq PO DAILY 04/19/17 Albuterol 0.083% Nebulizer Charissa [Ventolin 0.083% Nebulizer Soln -] 1 amp NEB Q6H PRN #30 amp 04/28/17 Alprazolam [Xanax] 0.25 mg PO TID #90 tablet MDD 1mg 04/28/17 Hydralazine HCl [Apresoline -] 50 mg PO TID #90 tablet 04/28/17 Prednisone [Deltasone -] 20 mg PO DAILY #30 tablet 04/28/17 Valsartan [Diovan] 320 mg PO DAILY #60 tablet 04/28/17
[2017-04-28] MEDS ORDERED: methylPREDNISolone NA SUCC 40 MG/1 ML VIAL IVPB ONE (13:00)
[2017-04-28] MEDS: predniSONE 20 MG TABLET (UD) PO SCH (14:08)
--- NOTE | 2017-04-28 16:48 | PN ---
Progress Note, Physician Chief Complaint: Ms Dorantes says she is doing well but feeling weak. No cp or n/v. shortness of breath improved - Current Medication List Current Medications: Active Medications Acetaminophen (Tylenol -) 650 mg PO Q4H PRN PRN Reason: FEVER OR PAIN Last Admin: 04/23/17 08:07 Dose: 650 mg Al Hydroxide/Mg Hydroxide (Mylanta Oral Suspension -) 30 ml PO Q6HPO PRN PRN Reason: INDIGESTION Albuterol Sulfate (Ventolin 0.083% Nebulizer Soln -) 1 amp NEB Q6H PRN PRN Reason: SHORT OF BREATH/WHEEZING Last Admin: 04/21/17 20:20 Dose: 1 amp Alprazolam (Xanax -) 0.25 mg PO TID [facility] Last Admin: 04/28/17 14:08 Dose: 0.25 mg Aspirin (Asa -) 81 mg PO DAILY [facility] Last Admin: 04/28/17 09:30 Dose: 81 mg Atorvastatin Calcium (Lipitor -) 40 mg PO HS [facility] Last Admin: 04/27/17 21:14 Dose: 40 mg Budesonide/Formoterol Fumarate (Symbicort 80/4.5mcg -) 2 puff IH BID [facility] Last Admin: 04/28/17 09:31 Dose: 2 puff Cyanocobalamin (Vitamin B12 -) 1,000 mcg PO DAILY [facility] Last Admin: 04/28/17 09:31 Dose: 1,000 mcg Escitalopram Oxalate (Lexapro -) 10 mg PO DAILY [facility] Last Admin: 04/28/17 09:31 Dose: 10 mg Fluticasone Propionate (Flonase -) 1 spray NS DAILY [facility] Last Admin: 04/28/17 09:32 Dose: 1 spray Furosemide (Lasix -) 20 mg PO DAILY [facility] Last Admin: 04/28/17 09:31 Dose: 20 mg Hydralazine HCl (Apresoline -) 50 mg PO TID [facility] Last Admin: 04/28/17 14:08 Dose: 50 mg Levothyroxine Sodium (Synthroid -) 100 mcg PO DAILY@0700 [facility] Last Admin: 04/28/17 06:09 Dose: 100 mcg Pantoprazole Sodium (Protonix -) 40 mg PO DAILY [facility] Last Admin: 04/28/17 09:32 Dose: 40 mg Polyethylene Glycol (Miralax (For Daily Use) -) 17 gm PO DAILY [facility] Last Admin: 04/28/17 09:32 Dose: 17 gm Prednisone (Deltasone -) 20 mg PO DAILY [facility] Last Admin: 04/28/17 14:08 Dose: 20 mg Valsartan (Diovan -) 320 mg PO DAILY [facility] Last Admin: 04/28/17 09:30 Dose: 320 mg - Objective Vital Signs: Vital Signs Temperature 98.6 F 04/28/17 14:47 Pulse Rate 83 04/28/17 14:47 Respiratory Rate 20 04/28/17 14:47 Blood Pressure 130/53 04/28/17 14:47 O2 Sat by Pulse Oximetry (%) 98 04/28/17 13:24 Constitutional: Yes: Well Nourished, No Distress, Calm Cardiovascular: Yes: Regular Rate and Rhythm. No: Gallop, Murmur, Rub Respiratory: Yes: Regular, CTA Bilaterally. No: Rales, Rhonchi, Wheezes Gastrointestinal: Yes: Normal Bowel Sounds, Soft. No: Distention, Tenderness Extremities: Yes: WNL Edema: No Labs: CBC, BMP 04/28/17 06:35 04/28/17 06:35 Problem List - Problems (1) Acute on chronic diastolic (congestive) heart failure Code(s): I50.33 - ACUTE ON CHRONIC DIASTOLIC (CONGESTIVE) HEART FAILURE (2) Hypertensive emergency Code(s): I16.1 - HYPERTENSIVE EMERGENCY (3) Coronary artery disease Code(s): I25.10 - ATHSCL HEART DISEASE OF [place] CORONARY ARTERY W/O ANG PCTRS Qualifiers: Coronary Disease-Associated Artery/Lesion type: [place] artery [place] vs. transplanted heart: [place] heart Associated angina: without angina Qualified Code(s): I25.10 - Atherosclerotic heart disease of [place] coronary artery without angina pectoris (4) Hyperlipidemia Code(s): E78.5 - HYPERLIPIDEMIA, UNSPECIFIED Qualifiers: Hyperlipidemia type: Pure hypercholesterolemia (5) Reflux esophagitis Code(s): K21.0 - GASTRO-ESOPHAGEAL REFLUX DISEASE WITH ESOPHAGITIS (6) Emphysema of lung Code(s): J43.9 - EMPHYSEMA, UNSPECIFIED Qualifiers: Emphysema type: unspecified Qualified Code(s): J43.9 - Emphysema, unspecified (7) Hypothyroid Code(s): E03.9 - HYPOTHYROIDISM, UNSPECIFIED Assessment/Plan (1) Acute on chronic diastolic (congestive) heart failure Assessment/Plan: -appreciated cardiology assistance -continue oral lasix -exacerbation resolved Code(s): I50.33 - ACUTE ON CHRONIC DIASTOLIC (CONGESTIVE) HEART FAILURE (2) Hypertensive emergency Assessment/Plan: -controlled -cozaar changed to diovan 320mg daily -hydralazine increased to 50mg tid -lasix 20mg daily -expect to decrease with decreasing steroid dose Code(s): I16.1 - HYPERTENSIVE EMERGENCY (3) Coronary artery disease Assessment/Plan: -no chest pain -continue home regimen -cardiac enzymes x3 negative Code(s): I25.10 - ATHSCL HEART DISEASE OF [place] CORONARY ARTERY W/O ANG PCTRS Qualifiers: Coronary Disease-Associated Artery/Lesion type: [place] artery [place] vs. transplanted heart: [place] heart Associated angina: without angina Qualified Code(s): I25.10 - Atherosclerotic heart disease of [place] coronary artery without angina pectoris (4) Hyperlipidemia Assessment/Plan: -continue statin Code(s): E78.5 - HYPERLIPIDEMIA, UNSPECIFIED Qualifiers: Hyperlipidemia type: Pure hypercholesterolemia (5) Reflux esophagitis Assessment/Plan: -continue PPI Code(s): K21.0 - GASTRO-ESOPHAGEAL REFLUX DISEASE WITH ESOPHAGITIS (6) Emphysema of lung Assessment/Plan: -pulmonary note reviewed -continue oxygen -placed on symbicort -change to oral prednisone -does not need oxygen Code(s): J43.9 - EMPHYSEMA, UNSPECIFIED Qualifiers: Emphysema type: unspecified Qualified Code(s): J43.9 - Emphysema, unspecified (7) Hypothyroid Assessment/Plan: -continue synthroid -TSH and FT4 within normal limits Code(s): E03.9 - HYPOTHYROIDISM, UNSPECIFIED Dispo -discharge to SNF tomorrow
[2017-04-28] MEDS ORDERED: PT OWN MED DRAWER 7, Y5N ONE (21:21)
[2017-04-28] MEDS: ATORVASTATIN CA 40 MG TABLET (FP) PO SCH (22:06)
[2017-04-29] MEDS: hydrALAZINE HCL 50 MG TABLET (FP) PO SCH ×2 (06:34→14:14)
[2017-04-29] MEDS: ALPRAZolam 0.25 MG TABLET PO SCH ×2 (06:34→13:34)
[2017-04-29] MEDS: LEVOTHYROXINE NA 100 MCG TABLET (FP) PO SCH (06:34)
[2017-04-29] MEDS: PANTOPRAZOLE 40 MG TABLET (FP) PO SCH (10:44)
[2017-04-29] MEDS: VALSARTAN 160 MG TABLET (UD) PO SCH (10:44)
[2017-04-29] MEDS: predniSONE 20 MG TABLET (UD) PO SCH (10:44)
[2017-04-29] MEDS: ASPIRIN 81 MG CHEWABLE TABLETS PO SCH (10:44)
[2017-04-29] MEDS: CYANOCOBALAMIN 1,000 MCG TABLET (FP) PO SCH (10:44)
[2017-04-29] MEDS: ESCITALOPRAM OXALATE 10 MG TABLET (FP) PO SCH (10:44)
[2017-04-29] MEDS: FUROSEMIDE 20 MG TABLET (FP) PO SCH (10:44)
[2017-04-29] MEDS: BUDESONIDE/FORMETEROL FUMARATE 80/4.5 mcg INHALER IH SCH (10:46)
[2017-04-29] MEDS: POLYETHYLENE GLYCOL 3350 119 GM BTL PO SCH (10:46)
[2017-04-29] MEDS: FLUTICASONE PROP 0.05% 16 GM NASAL SPRAY NS SCH (10:46)
--- NOTE | 2017-04-29 11:09 | PN ---
Progress Note (short form) - Note Progress Note: s: no cp palps dizzy; sob much better than on admit but still feels very tired when walking o: Vital Signs Period Temp Pulse Resp BP Sys/Rios Pulse Ox Last 24 Hr 98.0 F-98.9 F 64-85 20-20 130-151/50-62 98-98 nad no jvd rrr s1s2 no mrg cta bl nl eff aaox3 no le e/c/c abd nt nd pos bs no jaundiced diaphoresis Current Medications Generic Name Dose Route Start Last Admin Trade Name Freq PRN Reason Stop Dose Admin Acetaminophen 650 mg 04/19/17 17:15 04/23/17 08:07 Tylenol - PO 650 mg Q4H PRN Administration FEVER OR PAIN Al Hydroxide/Mg Hydroxide 30 ml 04/20/17 14:05 Mylanta Oral Suspension - PO Q6HPO PRN INDIGESTION Albuterol Sulfate 1 amp 04/20/17 20:32 04/21/17 20:20 Ventolin 0.083% Nebulizer Soln - NEB 1 amp Q6H PRN Administration SHORT OF BREATH/WHEEZING Alprazolam 0.25 mg 04/23/17 12:15 04/29/17 06:34 Xanax - PO 0.25 mg TID [facility] Administration Aspirin 81 mg 04/20/17 10:00 04/29/17 10:44 Asa - PO 81 mg DAILY [facility] Administration Atorvastatin Calcium 40 mg 04/19/17 22:00 04/28/17 22:06 Lipitor - PO 40 mg HS [facility] Administration Budesonide/Formoterol Fumarate 2 puff 04/20/17 13:54 04/29/17 10:46 Symbicort 80/4.5mcg - IH 2 puff BID [facility] Administration Cyanocobalamin 1,000 mcg 04/20/17 10:00 04/29/17 10:44 Vitamin B12 - PO 1,000 mcg DAILY [facility] Administration Escitalopram Oxalate 10 mg 04/20/17 10:00 04/29/17 10:44 Lexapro - PO 10 mg DAILY [facility] Administration Fluticasone Propionate 1 spray 04/21/17 10:00 04/29/17 10:46 Flonase - NS 1 spray DAILY [facility] Administration Furosemide 20 mg 04/21/17 10:00 04/29/17 10:44 Lasix - PO 20 mg DAILY [facility] Administration Hydralazine HCl 50 mg 04/25/17 14:00 04/29/17 06:34 Apresoline - PO 50 mg TID [facility] Administration Levothyroxine Sodium 100 mcg 04/20/17 07:00 04/29/17 06:34 Synthroid - PO 100 mcg DAILY@0700 [facility] Administration Pantoprazole Sodium 40 mg 04/20/17 10:00 04/29/17 10:44 Protonix - PO 40 mg DAILY [facility] Administration Polyethylene Glycol 17 gm 04/20/17 10:00 04/29/17 10:46 Miralax (For Daily Use) - PO Not Given DAILY [facility] Prednisone 20 mg 04/28/17 12:45 04/29/17 10:44 Deltasone - PO 20 mg DAILY [facility] Administration Valsartan 320 mg 04/27/17 10:00 04/29/17 10:44 Diovan - PO 320 mg DAILY [facility] Administration CBC, BMP 04/28/17 06:35 04/28/17 06:35 echo 03/2017: nl lv/rv, mild ar/mr mibi 03/2017: nl mpi, nl lvef ecg 04/19/17: sinus indira, pacs, 1st deg avb, nl qtc, no ischemic changes a/p: 81 f hx htn, hld, hypothyroid, cad s/p pci 2007 (lad), le edema/venous insuff, chronic URIs sent to er by pmd for htn and sob. sob, acute diastolic chf likely secondary to hypertensive emergency: -sob and elevated bnp likely due to hypertensive emergency causing dchf -no signs acs -after iv lasix here bun/cr bumped and she does not appear vol overloaded so changed back to home po lasix 20 qd -her remaining sob/herr is a chronic symptom for her, may be have been exacerbated by htn emergency, but otherwise does not appear cardiac in etiology , pulm following and was started on trial of steroids for possible copd-->sob has been improving so seems to be helping, continued plans per pulm. Also considering rehab. -recent echo and mibi unremarkable le edema/venous insuff: -stable, no sig le edema currently -resumed home lasix 20 po qd htn: -cont current cozaar and hydralazine. She was indira with bystolic so stopped here. she had worse le edema with ccb so will avoid as well. hld: -cont statin cad s/p remote pci: -stable, no angina, no signs acs -ce's neg x3, ecg w/o ischemic changes -recent mibi and echo unremarkable -cont asa, statin, arb -stopped bb due to bradycardia cardiac jeffers stable for dc
--- NOTE | 2017-04-29 11:28 | PN ---
Progress Note (short form) - Note Progress Note: Breathing feels overall better. Generalized weakness and fatigue. Slept well last night. Intake & Output 04/26/17 04/27/17 04/28/17 04/29/17 23:59 23:59 23:59 23:59 Intake Total 260 100 985 0 Balance 260 100 985 0 Weight 159 lb 6.4 oz 160 lb 12.8 oz 160 lb 7 oz 162 lb 1 oz Last Vital Signs Temp Pulse Resp BP Pulse Ox 98.1 F 70 20 144/62 98 04/29/17 10:00 04/29/17 10:00 04/29/17 10:00 04/29/17 10:00 04/28/17 21:00 Active Medications Acetaminophen (Tylenol -) 650 mg PO Q4H PRN PRN Reason: FEVER OR PAIN Last Admin: 04/23/17 08:07 Dose: 650 mg Al Hydroxide/Mg Hydroxide (Mylanta Oral Suspension -) 30 ml PO Q6HPO PRN PRN Reason: INDIGESTION Albuterol Sulfate (Ventolin 0.083% Nebulizer Soln -) 1 amp NEB Q6H PRN PRN Reason: SHORT OF BREATH/WHEEZING Last Admin: 04/21/17 20:20 Dose: 1 amp Alprazolam (Xanax -) 0.25 mg PO TID [facility] Last Admin: 04/29/17 06:34 Dose: 0.25 mg Aspirin (Asa -) 81 mg PO DAILY [facility] Last Admin: 04/29/17 10:44 Dose: 81 mg Atorvastatin Calcium (Lipitor -) 40 mg PO HS [facility] Last Admin: 04/28/17 22:06 Dose: 40 mg Budesonide/Formoterol Fumarate (Symbicort 80/4.5mcg -) 2 puff IH BID [facility] Last Admin: 04/29/17 10:46 Dose: 2 puff Cyanocobalamin (Vitamin B12 -) 1,000 mcg PO DAILY [facility] Last Admin: 04/29/17 10:44 Dose: 1,000 mcg Escitalopram Oxalate (Lexapro -) 10 mg PO DAILY [facility] Last Admin: 04/29/17 10:44 Dose: 10 mg Fluticasone Propionate (Flonase -) 1 spray NS DAILY [facility] Last Admin: 04/29/17 10:46 Dose: 1 spray Furosemide (Lasix -) 20 mg PO DAILY [facility] Last Admin: 04/29/17 10:44 Dose: 20 mg Hydralazine HCl (Apresoline -) 50 mg PO TID [facility] Last Admin: 04/29/17 06:34 Dose: 50 mg Levothyroxine Sodium (Synthroid -) 100 mcg PO DAILY@0700 [facility] Last Admin: 04/29/17 06:34 Dose: 100 mcg Pantoprazole Sodium (Protonix -) 40 mg PO DAILY [facility] Last Admin: 04/29/17 10:44 Dose: 40 mg Polyethylene Glycol (Miralax (For Daily Use) -) 17 gm PO DAILY [facility] Last Admin: 04/29/17 10:46 Dose: Not Given Prednisone (Deltasone -) 20 mg PO DAILY [facility] Last Admin: 04/29/17 10:44 Dose: 20 mg Valsartan (Diovan -) 320 mg PO DAILY [facility] Last Admin: 04/29/17 10:44 Dose: 320 mg Constitutional: Yes: Awake, alert, NAD Eyes: Yes: WNL HENT: Yes: WNL Neck: Yes: WNL Cardiovascular: Yes: Regular Rate and Rhythm, S1, S2 Respiratory: Yes: Diminished, few scattered rhonchi, no wheezing Gastrointestinal: Yes: Normal Bowel Sounds, Soft Extremities: Yes: WNL Edema: No Labs: Problem List - Problems (1) Congestive cardiac failure Code(s): I50.9 - HEART FAILURE, UNSPECIFIED Qualifiers: Congestive heart failure type: unspecified congestive heart failure type Congestive heart failure chronicity: unspecified congestive heart failure chronicity Qualified Code(s): I50.9 - Heart failure, unspecified (2) Hypothyroid Code(s): E03.9 - HYPOTHYROIDISM, UNSPECIFIED (3) Shortness of breath Code(s): R06.02 - SHORTNESS OF BREATH (4) Acute on chronic diastolic (congestive) heart failure Code(s): I50.33 - ACUTE ON CHRONIC DIASTOLIC (CONGESTIVE) HEART FAILURE (5) Coronary artery disease Code(s): I25.10 - ATHSCL HEART DISEASE OF [place] CORONARY ARTERY W/O ANG PCTRS Qualifiers: Coronary Disease-Associated Artery/Lesion type: [place] artery [place] vs. transplanted heart: [place] heart Associated angina: without angina Qualified Code(s): I25.10 - Atherosclerotic heart disease of [place] coronary artery without angina pectoris (6) Dyspnea Code(s): R06.00 - DYSPNEA, UNSPECIFIED Qualifiers: Dyspnea type: dyspnea on exertion Qualified Code(s): R06.09 - Other forms of dyspnea (7) Edema Code(s): R60.9 - EDEMA, UNSPECIFIED Qualifiers: Edema type: localized Qualified Code(s): R60.0 - Localized edema (8) H/O heart artery stent Code(s): Z95.5 - PRESENCE OF CORONARY ANGIOPLASTY IMPLANT AND GRAFT (9) Hyperlipidemia Code(s): E78.5 - HYPERLIPIDEMIA, UNSPECIFIED Qualifiers: Hyperlipidemia type: Pure hypercholesterolemia (10) Hypertension Code(s): I10 - ESSENTIAL (PRIMARY) HYPERTENSION Qualifiers: Hypertension type: essential hypertension Qualified Code(s): I10 - Essential (primary) hypertension (11) Hypertensive urgency Code(s): I16.0 - HYPERTENSIVE URGENCY Assessment/Plan IMP HYPERTENSIVE URGENCY IMPROVED DIASTOLIC HF DYSPNEA LIKELY SECONDARY TO HF HTN H/O URIs + SECOND HAND SMOKE EXPOSURE PLAN PREDNISONE SYMBICORT BID INHALED BRONCHODILATORS PRN DIURETICS O2 PRN CHECK O2 SAT POST EXERCISE DR SHOEMAKER
--- NOTE | 2017-04-29 13:08 | DS ---
Physical Examination Vital Signs: Vital Signs Temperature 98.1 F 04/29/17 10:00 Pulse Rate 69 04/29/17 11:09 Respiratory Rate 20 04/29/17 10:00 Blood Pressure 144/62 04/29/17 10:00 O2 Sat by Pulse Oximetry (%) 97 04/29/17 11:09 Constitutional: Yes: Well Nourished, No Distress, Calm Cardiovascular: Yes: Regular Rate and Rhythm. No: Gallop, Murmur, Rub Respiratory: Yes: Regular, CTA Bilaterally. No: Rales, Rhonchi, Wheezes Gastrointestinal: Yes: Normal Bowel Sounds, Soft. No: Distention, Tenderness Extremities: Yes: WNL Edema: No Labs: CBC, BMP 04/28/17 06:35 04/28/17 06:35 Discharge Summary Reason For Visit: HYPERTENSIVE EMERGENCY; SHORTNESS OF BREATH Current Active Problems Anxiety about health (Acute) Congestive cardiac failure (Acute) Hypertensive emergency (Acute) Hypertensive urgency (Acute) Hypothyroid (Acute) Shortness of breath (Acute) Hospital Course: (1) Acute on chronic diastolic (congestive) heart failure Code(s): I50.33 - ACUTE ON CHRONIC DIASTOLIC (CONGESTIVE) HEART FAILURE (2) Hypertensive emergency Code(s): I16.1 - HYPERTENSIVE EMERGENCY (3) Coronary artery disease Code(s): I25.10 - ATHSCL HEART DISEASE OF [place] CORONARY ARTERY W/O ANG PCTRS Qualifiers: Coronary Disease-Associated Artery/Lesion type: [place] artery [place] vs. transplanted heart: [place] heart Associated angina: without angina Qualified Code(s): I25.10 - Atherosclerotic heart disease of [place] coronary artery without angina pectoris (4) Hyperlipidemia Code(s): E78.5 - HYPERLIPIDEMIA, UNSPECIFIED Qualifiers: Hyperlipidemia type: Pure hypercholesterolemia (5) Reflux esophagitis Code(s): K21.0 - GASTRO-ESOPHAGEAL REFLUX DISEASE WITH ESOPHAGITIS (6) Emphysema of lung Code(s): J43.9 - EMPHYSEMA, UNSPECIFIED Qualifiers: Emphysema type: unspecified Qualified Code(s): J43.9 - Emphysema, unspecified (7) Hypothyroid Code(s): E03.9 - HYPOTHYROIDISM, UNSPECIFIED Please refer to H&P but in short Ms Dorantes is an 81 year old female who came in with CHF exacerbation secondary to hypertensive urgency and emphysema with exacerbation. She was admitted to the hospital and seen by cardiology. Her antihypertensive regimen was adjusted and her blood pressure improved. She was also diuresed with IV lasix and successfully transitioned to po lasix. She was seen by pulmonary and started on IV solumedrol. She improved significantly and is safe for discharge to SNF. 34 minutes spent in preparation of this discharge Condition: Good - Instructions Diet, Activity, Other Instructions: resume previous diet and activity Referrals: Momo Goodrich MD [Staff Physician] - Eren Davidson MD [Staff Physician] - Mica Taveras MD [Primary Care Provider] - Disposition: HOME - Home Medications Comprehensive Discharge Medication List: Ambulatory Orders Aspirin [ASA -] 81 mg PO DAILY 04/19/17 Atorvastatin Ca [Lipitor] 40 mg PO HS 04/19/17 Cyanocobalamin (Vitamin B-12) [Vitamin B-12] 1,000 mcg PO DAILY 04/19/17 Escitalopram Oxalate [Lexapro -] 10 mg PO DAILY 04/19/17 Fluticasone Furoate [Flonase Sensimist] 9.9 ml NS DAILY 04/19/17 Furosemide 20 mg PO DAILY 04/19/17 Levothyroxine [Synthroid -] 100 mcg PO DAILY 04/19/17 Mag Carb/Al Hydrox/Alginic AC [Gaviscon Liquid] 15 - 30 ml PO Q6H 04/19/17 Mometasone/Formoterol [Dulera 100 Mcg/5 Mcg Inhaler] 2 inh IH BID 04/19/17 Pantoprazole Sodium 40 mg PO BID 04/19/17 Polyethylene Glycol 3350 [Glycolax] 119 gm PO DAILY 04/19/17 Potassium Chloride [Klor-Con 8] 8 meq PO DAILY 04/19/17 Albuterol 0.083% Nebulizer Charissa [Ventolin 0.083% Nebulizer Soln -] 1 amp NEB Q6H PRN #30 amp 04/28/17 Alprazolam [Xanax] 0.25 mg PO TID #90 tablet MDD 1mg 04/28/17 Hydralazine HCl [Apresoline -] 50 mg PO TID #90 tablet 04/28/17 Prednisone [Deltasone -] 20 mg PO DAILY #30 tablet 04/28/17 Valsartan [Diovan] 320 mg PO DAILY #60 tablet 04/28/17
[2017-04-29 15:56] VITALS: BP 126/51; PULSE 74; TEMP 97.3
== END 2017-04-29 17:20 | DRG 304 ==
LOC: JER 11:59 → JERBED 15:54 → OBSVTOIN 17:15 → J4W 20:33 → J5S 04-27 20:17
PROVIDERS: ADMIT Internal Medicine; ATTEND Internal Medicine
DX: I16.1 Hypertensive emergency (principal); I50.33 Acute on chronic diastolic (congestive) heart failure; N17.9 Acute kidney failure, unspecified; I11.0 Hypertensive heart disease with heart failure; K21.0 Gastro-esophageal reflux disease with esophagitis; J43.9 Emphysema, unspecified; E03.9 Hypothyroidism, unspecified; I25.10 Atherosclerotic heart disease of native coronary artery without angina pectoris; I87.2 Venous insufficiency (chronic) (peripheral); J06.9 Acute upper respiratory infection, unspecified; R60.9 Edema, unspecified; J42 Unspecified chronic bronchitis; F41.8 Other specified anxiety disorders; Z77.22 Contact with and (suspected) exposure to environmental tobacco smoke (acute) (chronic); Z95.5 Presence of coronary angioplasty implant and graft
CPT/HCPCS: 36415; 71010-TC; 80048; 80053; 82550; 83735; 83880; 84100; 84439; 84443; 84484; 85025; 93005; 93010; 94640; 94761; 97116-GP; 97161-GP; 99282-25; G0378

== ENCOUNTER 2017-06-19 18:37 | Inpatient (IN) | payer OTHER, BC ==
[2017-06-19 20:10] LABS: BASOPHIL 1.2 % (0-2.0); EOSINOPHIL 1.7 % (0-4.5); MCHC 32.5 g/dl (32.0-36.0); MEAN CELL VOLUME 73.9 fl (80-96); MEAN PLT VOLUME 8.7 fl (7.5-11.1); NEUTROPHILS 63.2 % (42.8-82.8); PLATELET COUNT 247 K/MM3 (134-434); RDW 21.1 % (11.6-15.6); WHITE BLOOD COUNT 8.3 K/mm3 (4.0-10.0)
[2017-06-19 20:22] LABS: INR 1.11 (0.82-1.09); PROTHROMBIN TIME (PATIENT) 12.2 SEC (9.98-11.88)
[2017-06-19 20:37] LABS: ALBUMIN 2.7 g/dl (3.4-5.0); ANION GAP 7 (8-16); CALCIUM 9.3 mg/dL (8.5-10.1); CO2 26 mmol/L (21-32); GLUCOSE,RANDOM 123 mg/dL (74-106); MAGNESIUM 1.9 mg/dL (1.8-2.4); SGOT/AST 32 U/L (15-37); SGPT/ALT 27 U/L (12-78)
[2017-06-19 20:44] LABS: ALK PHOS 147 U/L (45-117); BILIRUBIN,TOTAL 0.2 mg/dL (0.2-1.0); CPK 73 IU/L (26-192); CREATININE 1.2 mg/dL (0.55-1.02); TOT PROT 5.8 g/dl (6.4-8.2); TROPONIN I < 0.02 ng/ml (0.00-0.05)
--- NOTE | 2017-06-19 20:47 | PDOC ---
History of Present Illness - General History Source: Patient Exam Limitations: No Limitations - History of Present Illness Initial Comments: 06/19/17 20:53 The patient is a 81 yo F with a significant past medical history of CAD, CHF HTN , chronic lung disease ( unknown cause h/o second hand smoke exposure), who is sent in to the ED by Dr. Dailey for worsening SOB. Patient had a chest x- ray done on Wednesday (5 days ago) which came back questionable for pneumonia in the left lung. Dr. Dailey ordered z-pack but with little to no alleviation. Patient has had 3 treatments of nebulizer as well with no alleviation. Patient complains of cough with clear phlegm. Patient denies any pain. Patient denies fever, chills, nausea, vomiting, diarrhea, hematochezia. Denies dysuria, frequency, dysuria. PCP: Dr. Davidson <Braulio Aguilera - Last Filed: 06/19/17 20:53> - General History Source: Patient Exam Limitations: No Limitations <Rosa M Pavon - Last Filed: 06/19/17 23:07> - General Chief Complaint: Shortness of Breath Stated Complaint: S.O.B Time Seen by Provider: 06/19/17 18:51 Past History <Braulio Aguilera - Last Filed: 06/19/17 20:53> - Past Medical History Anemia: No Asthma: No Cancer: No Cardiac Disorders: (CARDIAC STENTS) CVA: No COPD: Yes CHF: Yes Dementia: No Diabetes: No GI Disorders: Yes (ACID REFLUX) Disorders: No HTN: Yes Hypercholesterolemia: Yes Liver Disease: No Seizures: No Thyroid Disease: Yes (thyroidectomy) - Surgical History Abdominal Surgery: No Appendectomy: No Cardiac Surgery: Yes (2 CARDIAC [id number]) Cholecystectomy: Yes Lung Surgery: No Neurologic Surgery: No Orthopedic Surgery: Yes (RIGHT KNEE ARTHROSCOPY) - Psycho/Social/Smoking Cessation Hx Anxiety: Yes Suicidal Ideation: No Smoking History: Never smoked Have you smoked in the past 12 months: No Number of Cigarettes Smoked Daily: 0 Information on smoking cessation initiated: No Hx Alcohol Use: No Drug/Substance Use Hx: No Substance Use Type: None Hx Substance Use Treatment: No <Rosa M Pavon - Last Filed: 06/19/17 23:07> - Past Medical History Allergies/Adverse Reactions: Allergies Allergy/AdvReac Type Severity Reaction Status Date / Time codeine [Codeine] Allergy Verified 06/19/17 18:44 meperidine HCl [From Demerol] Allergy Verified 06/19/17 18:44 Home Medications: Ambulatory Orders Aspirin [ASA -] 81 mg PO DAILY 04/19/17 Atorvastatin Ca [Lipitor] 40 mg PO HS 04/19/17 Cyanocobalamin (Vitamin B-12) [Vitamin B-12] 1,000 mcg PO DAILY 04/19/17 Escitalopram Oxalate [Lexapro -] 20 mg PO DAILY 04/19/17 Fluticasone Furoate [Flonase Sensimist] 9.9 ml NS DAILY 04/19/17 Furosemide 20 mg PO DAILY 04/19/17 Levothyroxine [Synthroid -] 100 mcg PO DAILY 04/19/17 Mag Carb/Al Hydrox/Alginic AC [Gaviscon Liquid] 15 - 30 ml PO Q6H 04/19/17 Mometasone/Formoterol [Dulera 100 Mcg/5 Mcg Inhaler] 2 inh IH BID 04/19/17 Polyethylene Glycol 3350 [Glycolax] 119 gm PO DAILY 04/19/17 Potassium Chloride [Klor-Con 8] 8 meq PO DAILY 04/19/17 Albuterol 0.083% Nebulizer Charissa [Ventolin 0.083% Nebulizer Soln -] 1 amp NEB Q6H PRN #30 amp 04/28/17 Alprazolam [Xanax] 0.25 mg PO TID #90 tablet MDD 1mg 04/28/17 Valsartan [Diovan] 320 mg PO DAILY #60 tablet 04/28/17 Fluticasone/Vilanterol [Breo Ellipta 100-25 Mcg INH] 1 each IH DAILY 06/19/17 Hydralazine HCl [Apresoline -] 75 mg PO TID 06/19/17 Omeprazole 40 mg PO BID 06/19/17 Prednisone [Deltasone -] 10 mg PO DAILY 06/19/17 Umeclidinium [place] [Incruse Ellipta] 62.5 mcg IH DAILY 06/19/17 Review of Systems - Review of Systems Able to Perform ROS?: Yes Comments:: 06/19/17 20:53 GENERAL/CONSTITUTIONAL: No: fever, chills, weakness, loss of appetite. HEAD, EYES, EARS, NOSE AND THROAT: No: change in vision, ear pain, discharge, sore throat, throat swelling. CARDIOVASCULAR: No: chest pain, lightheadedness, palpitations, syncope RESPIRATORY: No: cough, shortness of breath, wheezing, hemoptysis, stridor. GASTROINTESTINAL: No: nausea, vomiting, abdominal cramping, diarrhea, rectal bleeding, constipation. GENITOURINARY: No: dysuria, hematuria, frequency, urgency, flank pain. MUSCULOSKELETAL: No: back pain, neck pain, joint pain, muscle swelling or pain SKIN AND BREASTS: No: lesions, pallor, rash or easy bruising. NEUROLOGIC: No: headache, vertigo, paresthesias, weakness ENDOCRINE: No: unexplained weight gain or loss HEMATOLOGIC/LYMPHATIC: No: anemia, easy bleeding, swelling nodes <Braulio Aguilera - Last Filed: 06/19/17 20:53> *Physical Exam - Vital Signs Last Vital Signs Temp Pulse Resp BP Pulse Ox 98.5 F 88 20 152/55 95 06/19/17 18:41 06/19/17 18:41 06/19/17 18:41 06/19/17 18:41 06/19/17 19:34 - Physical Exam Comments: 06/19/17 20:54 GENERAL: The patient is in no acute distress. HEAD: Normal with no signs of trauma. EYES: PERRLA, EOMI, sclera anicteric, conjunctiva clear. ENT: Ears normal, nares patent, oropharynx clear without exudates. Moist mucous membranes. NECK: Normal range of motion, supple without lymphadenopathy, JVD, or masses. LUNGS: Breath sounds equal, clear to auscultation bilaterally. No wheezes, and no crackles. HEART: Right basilar crackles. Regular, murmur left sternal border 2/6. No rub or gallop. ABDOMEN: Soft, nontender, normoactive bowel sounds. No guarding, no rebound. EXTREMITIES: Normal range of motion, no edema. No clubbing or cyanosis. No erythema, or tenderness. NEUROLOGICAL: Cranial nerves II through XII grossly intact. Normal speech. No focal neurological deficits. MUSCULOSKELETAL: Back non-tender to palpation, no CVA tenderness SKIN: Warm, Dry, normal turgor, no rashes or lesions noted. <Braulio Aguilera - Last Filed: 06/19/17 20:53> - Vital Signs Last Vital Signs Temp Pulse Resp BP Pulse Ox 98.5 F 88 20 152/55 95 06/19/17 18:41 06/19/17 18:41 06/19/17 18:41 06/19/17 18:41 06/19/17 19:34 <Rosa M Pavon - Last Filed: 06/19/17 23:07> ED Treatment Course - LABORATORY CBC & Chemistry Diagram: 06/19/17 19:50 06/19/17 19:50 - ADDITIONAL ORDERS Additional order review: Laboratory Results 06/19/17 06/19/17 19:50 19:50 PT with INR 12.20 H INR 1.11 Sodium 143 Potassium 3.3 L D Chloride 110 H Carbon Dioxide 26 Anion Gap 7 L BUN 32 H D Creatinine 1.2 H D Creat Clearance w eGFR 42.90 Random Glucose 123 H Calcium 9.3 Magnesium 1.9 D Total Bilirubin 0.2 D AST 32 D ALT 27 D Alkaline Phosphatase 147 H Creatine Kinase 73 Troponin I < 0.02 B-Natriuretic Peptide 518.38 H Total Protein 5.8 L Albumin 2.7 L 06/19/17 19:50 RBC 3.73 D MCV 73.9 L MCHC 32.5 RDW 21.1 H MPV 8.7 Neutrophils % 63.2 Lymphocytes % 20.4 Monocytes % 13.5 H Eosinophils % 1.7 D Basophils % 1.2 D <Braulio Aguilera - Last Filed: 06/19/17 20:53> - LABORATORY CBC & Chemistry Diagram: 06/19/17 19:50 06/19/17 19:50 - ADDITIONAL ORDERS Additional order review: Laboratory Results 06/19/17 06/19/17 19:50 19:50 PT with INR 12.20 H INR 1.11 Sodium 143 Potassium 3.3 L D Chloride 110 H Carbon Dioxide 26 Anion Gap 7 L BUN 32 H D Creatinine 1.2 H D Creat Clearance w eGFR 42.90 Random Glucose 123 H Calcium 9.3 Magnesium 1.9 D Total Bilirubin 0.2 D AST 32 D ALT 27 D Alkaline Phosphatase 147 H Creatine Kinase 73 Troponin I < 0.02 B-Natriuretic Peptide 518.38 H Total Protein 5.8 L Albumin 2.7 L 06/19/17 19:50 RBC 3.73 D MCV 73.9 L MCHC 32.5 RDW 21.1 H MPV 8.7 Neutrophils % 63.2 Lymphocytes % 20.4 Monocytes % 13.5 H Eosinophils % 1.7 D Basophils % 1.2 D - RADIOLOGY Radiology Studies Ordered: Category Date Time Status CHEST X-RAY PORTABLE* [RAD] Stat Radiology 06/19/17 19:39 Taken <Rosa M Pavon - Last Filed: 06/19/17 23:07> Medical Decision Making - Medical Decision Making 06/19/17 20:47 A portion of this note was documented by scribe services under my direction. I have reviewed the details of the note, within reason, and agree with the documentation with the following case summary and management plan written by me. Nursing documentation reviewed and incorporated into medical decision making 06/19/17 21:23 This patient is a 81 yo F with a significant past medical history of CAD, CHF HTN , chronic lung disease, S/p admission approximately 2 months ago for shortness of breath, and labile blood pressures Pt was sent to rehab She has noted a gradual decrease in her exercise tolerance and increased shortness of breath She was seen by her PMD in the office, who did an Xray which showed questionable left basilar changes She was started on Azithromycin Pt continues to have a cough and shortness of breath Now patient can not exert herself at all She denies chest pain , palpitations She took albuterol prior to coming in to the ER and continued to have shortness of breath Cardiology: per patient, stress test within the past year, ECHO: EF nml, ? diastolic dysfunction Laboratory Tests 04/28/17 04/28/17 06/19/17 06:35 06:35 19:50 WBC 9.6 D 8.3 Hgb 11.7 D 8.9 L D Hct 36.4 27.5 L D Plt Count 359 D 247 D INR Sodium Potassium Chloride Anion Gap BUN 43 H Creatinine 0.9 Creatine Kinase Troponin I B-Natriuretic Peptide Stool Occult Blood 06/19/17 06/19/17 06/19/17 19:50 19:50 21:00 WBC Hgb Hct Plt Count INR 1.11 Sodium 143 Potassium 3.3 L D Chloride 110 H Anion Gap 7 L BUN 32 H D Creatinine 1.2 H D Creatine Kinase 73 Troponin I < 0.02 B-Natriuretic Peptide 518.38 H Stool Occult Blood Negative 06/19/17 21:52 ? symptomatic anemia guiaic negative light brown stools Pt has a history of a gastric ulcer (followed by Dr Mercedes) 06/19/17 21:53 Admit to hospitalist 06/19/17 21:53 Will send for non contrast CT 06/19/17 22:59 Received call from Radiologist Chronic nocturnal aspiration chronic immune deficiency MAC consulidation in [place] and bilateral lower lobes Lymphadenophathy Mass in right liver lobe Extensive CAD and cardiovascular calcification nodular non specific Left pleural effusion ? check ppd ? need for swallow evaluation ? Liver mass evaluation ? Lymph node biopsy <Rosa M Pavon - Last Filed: 06/19/17 23:07> *DC/Admit/Observation/Transfer - Attestations Scribe Attestion: 06/19/17 20:54 Documentation prepared by Braulio Aguilera, acting as medical office rep for Rosa M Pavon MD. <Braulio Aguilera - Last Filed: 06/19/17 20:53> - Discharge Dispostion Admit: Yes <Rosa M Pavon - Last Filed: 06/19/17 23:07> Diagnosis at time of Disposition: Pneumonia Qualifiers: Pneumonia type: due to unspecified organism Laterality: bilateral Lung location : unspecified part of lung Qualified Code(s): J18.9 - Pneumonia, unspecified organism - Discharge Dispostion Condition at time of disposition: Stable
[2017-06-19 20:48] LABS: ANISOCYTOSIS 2+; OVALOCYTE 1+; PLATELET ESTIMATE ADEQUATE (NORMAL); POIKILOCYTOSIS 1+; POLYCHROMASIA RARE
[2017-06-19] MEDS ORDERED: ACETAMINOPHEN 325 MG TABLET (FP) PO ONE (22:29)
[2017-06-19] MEDS ORDERED: ACETAMINOPHEN 325 MG TABLET (FP) ONE (22:37)
[2017-06-19] MEDS ORDERED: VANCOMYCIN 1,000 MG in DEXTROSE 5%-WATER - 250 ML IVPB ONE (23:05)
[2017-06-19] MEDS ORDERED: PIPERACILLIN/TAZOB 3.375 GM/50 ML PRE-DOCKED IVPB ONE (23:05)
--- NOTE | 2017-06-19 23:37 | HP ---
CHIEF COMPLAINT:short of breath. PCP:Dr. Dailey ,Dr. Davidson(research physiologist), Dr. Goodrich (senior policy advisor) HISTORY OF PRESENT ILLNESS: 81 yo F with a significant past medical history of CAD, CHF HTN , chronic lung disease ( unknown cause h/o second hand smoke exposure), who is sent in to the ED by Dr. Dailey for worsening SOB. Patient had a chest x-ray done on Wednesday (5 days ago) which came back questionable for pneumonia in the left lung. Dr. Dailey ordered z-pack but with little to no alleviation. Patient has had 3 treatments of nebulizer as well with no alleviation. Patient complains of cough with clear phlegm. Patient denies any pain.Patient denies fever, chills, nausea, vomiting, diarrhea, hematochezia. Denies dysuria, frequency, dysuria. ER course was notable for: (1)Chest CT shows left upper and bilateral lower lobe pna (2)Given Vanco and Zosyn x1 (3) Recent Travel: Denies PAST MEDICAL HISTORY: CAD, CHF HTN , COPD PAST SURGICAL HISTORY: Social History: Smoking:never Alcohol:no Drugs: no Family History: Allergies codeine [Codeine] Allergy (Verified 06/19/17 18:44) meperidine HCl [From Demerol] Allergy (Verified 06/19/17 18:44) HOME MEDICATIONS: Home Medications Medication Instructions Recorded Aspirin [ASA -] 81 mg PO DAILY 04/19/17 Atorvastatin Ca [Lipitor] 40 mg PO HS 04/19/17 Cyanocobalamin (Vitamin B-12) 1,000 mcg PO DAILY 04/19/17 [Vitamin B-12] Escitalopram Oxalate [Lexapro -] 20 mg PO DAILY 04/19/17 Fluticasone Furoate [Flonase 9.9 ml NS DAILY 04/19/17 Sensimist] Furosemide 20 mg PO DAILY 04/19/17 Levothyroxine [Synthroid -] 100 mcg PO DAILY 04/19/17 Mag Carb/Al Hydrox/Alginic AC 15 - 30 ml PO Q6H 04/19/17 [Gaviscon Liquid] Mometasone/Formoterol [Dulera 100 2 inh IH BID 04/19/17 Mcg/5 Mcg Inhaler] Polyethylene Glycol 3350 [Glycolax] 119 gm PO DAILY 04/19/17 Potassium Chloride [Klor-Con 8] 8 meq PO DAILY 04/19/17 Albuterol 0.083% Nebulizer Charissa 1 amp NEB Q6H PRN #30 amp 04/28/17 [Ventolin 0.083% Nebulizer Soln -] Alprazolam [Xanax] 0.25 mg PO TID #90 tablet MDD 1mg 04/28/17 Valsartan [Diovan] 320 mg PO DAILY #60 tablet 04/28/17 Fluticasone/Vilanterol [Breo 1 each IH DAILY 06/19/17 Ellipta 100-25 Mcg INH] Hydralazine HCl [Apresoline -] 75 mg PO TID 06/19/17 Omeprazole 40 mg PO BID 06/19/17 Prednisone [Deltasone -] 10 mg PO DAILY 06/19/17 Umeclidinium [place] [Incruse 62.5 mcg IH DAILY 06/19/17 Ellipta] REVIEW OF SYSTEMS CONSTITUTIONAL: Absent: fever, chills, diaphoresis, generalized weakness, malaise, loss of appetite, weight change HEENT: Absent: rhinorrhea, nasal congestion, throat pain, throat swelling, difficulty swallowing, mouth swelling, ear pain, eye pain, visual changes CARDIOVASCULAR: Absent: chest pain, syncope, palpitations, irregular heart rate, lightheadedness , peripheral edema RESPIRATORY: cough, shortness of breath, dyspnea with exertion, orthopnea Absent: , wheezing, stridor, hemoptysis GASTROINTESTINAL: Absent: abdominal pain, abdominal distension, nausea, vomiting, diarrhea, constipation, melena, hematochezia GENITOURINARY: Absent: dysuria, frequency, urgency, hesitancy, hematuria, flank pain, genital pain MUSCULOSKELETAL: Absent: myalgia, arthralgia, joint swelling, back pain, neck pain SKIN: Absent: rash, itching, pallor HEMATOLOGIC/IMMUNOLOGIC: Absent: easy bleeding, easy bruising, lymphadenopathy, frequent infections ENDOCRINE: Absent: unexplained weight gain, unexplained weight loss, heat intolerance, cold intolerance NEUROLOGIC: Absent: headache, focal weakness or paresthesias, dizziness, unsteady gait, seizure, mental status changes, bladder or bowel incontinence PSYCHIATRIC: Absent: anxiety, depression, suicidal or homicidal ideation, hallucinations. PHYSICAL EXAMINATION Vital Signs - 24 hr 06/19/17 06/19/17 18:41 19:34 Temperature 98.5 F Pulse Rate 88 Respiratory 20 Rate Blood Pressure 152/55 O2 Sat by Pulse 95 95 Oximetry (%) GENERAL: AAO x3 , Mild distress HEAD: NC/AT EYES: PERRLA, EOMI, sclera anicteric, conjunctiva clear. No lid lag. EARS, NOSE, THROAT: Moist mucous membranes. NECK:supple, no jvd LUNGS:decreased breath sounds bilaterally . No wheezes, and no crackles. No accessory muscle use. HEART:RRR, 3/6 [place] RSB ABDOMEN: Soft, NT/ND, normoactive bowel sounds, no guarding, no rebound, no masses. MUSCULOSKELETAL: Normal range of motion at all joints. No bony deformities or tenderness. No CVA tenderness. UPPER EXTREMITIES: 2+ pulses, warm, well-perfused. No cyanosis. No clubbing. No peripheral edema. LOWER EXTREMITIES: 2+ pulses, warm, well-perfused. No calf tenderness. No peripheral edema. NEUROLOGICAL: Cranial nerves II-XII intact. Normal speech. gait not observed. PSYCHIATRIC: Cooperative. Good eye contact. Appropriate mood and affect. Laboratory Results - last 24 hr 06/19/17 06/19/17 06/19/17 19:50 19:50 19:50 WBC 8.3 RBC 3.73 D Hgb 8.9 L D Hct 27.5 L D MCV 73.9 L MCH 24.0 L MCHC 32.5 RDW 21.1 H Plt Count 247 D MPV 8.7 Neutrophils % 63.2 Lymphocytes % 20.4 Monocytes % 13.5 H Eosinophils % 1.7 D Basophils % 1.2 D Platelet Estimate Adequate Polychromasia Rare Poikilocytosis 1+ Anisocytosis 2+ Ovalocytes 1+ Morphology Comment PT with INR 12.20 H INR 1.11 Sodium 143 Potassium 3.3 L D Chloride 110 H Carbon Dioxide 26 Anion Gap 7 L BUN 32 H D Creatinine 1.2 H D Creat Clearance w eGFR 42.90 Random Glucose 123 H Calcium 9.3 Magnesium 1.9 D Total Bilirubin 0.2 D AST 32 D ALT 27 D Alkaline Phosphatase 147 H Creatine Kinase 73 Troponin I < 0.02 B-Natriuretic Peptide 518.38 H Total Protein 5.8 L Albumin 2.7 L Stool Occult Blood 06/19/17 21:00 WBC RBC Hgb Hct MCV MCH MCHC RDW Plt Count MPV Neutrophils % Lymphocytes % Monocytes % Eosinophils % Basophils % Platelet Estimate Polychromasia Poikilocytosis Anisocytosis Ovalocytes Morphology Comment PT with INR INR Sodium Potassium Chloride Carbon Dioxide Anion Gap BUN Creatinine Creat Clearance w eGFR Random Glucose Calcium Magnesium Total Bilirubin AST ALT Alkaline Phosphatase Creatine Kinase Troponin I B-Natriuretic Peptide Total Protein Albumin Stool Occult Blood Negative ASSESSMENT/PLAN: 81 yo F with a significant past medical history of CAD, CHF HTN , chronic lung disease admitted for Pneumonia. Problem List - Problem (1) Pneumonia Assessment/Plan: * CT chest shows JUAN LUIS and bilateral LL consolidations. * Given IV Vanco and Zosyn x1 in ED. * Will continue with IV Levaquin 500mg daily * Sputum and blood cultures sent. * Urine for legionella antigen (2) Congestive cardiac failure Assessment/Plan: * Lasix 20mg PO daily * Echo * daily weights. * Low sodium diet. * Continue Valsartan and Lipitor * Potassium replacement PO * Cardiology Dr. Eli. (3) Hypothyroid Assessment/Plan: * Continue Levothyroxine. Code(s): E03.9 - HYPOTHYROIDISM, UNSPECIFIED Qualifiers: Hypothyroidism type: acquired Qualified Code(s): E03.9 - Hypothyroidism, unspecified (4) Hypertension Assessment/Plan: * Continue with hydralazine * Continue Diovan * (5) DVT prophylaxis Assessment/Plan: * Lovenox 30mg SQ daily Visit type - Emergency Visit Emergency Visit: Yes ED Registration Date: 06/19/17 Care time: The patient presented to the Emergency Department on the above date and was hospitalized for further evaluation of their emergent condition. - New Patient This patient is new to me today: Yes Date on this admission: 06/20/17 - Critical Care Critical Care patient: No
[2017-06-20] MEDS ORDERED: PIPERACILLIN/TAZOBACTAM 3.375 GM VIAL IVPB ONE (00:28)
[2017-06-20] MEDS ORDERED: DEXTROSE 5%-WATER - 50 ML IVPB ONE (00:29)
[2017-06-20] MEDS ORDERED: VANCOMYCIN 1 GRAM (PRE-DOCKED) 1,000 MG/250 ML BAG IVPB ONE (00:30)
[2017-06-20] MEDS ORDERED: PIPERACILLIN/TAZOB 3.375 GM 3.375 GM in DEXTROSE 5%-WATER - 50 ML IVPB ONE (00:30)
[2017-06-20 01:08] VITALS: BMI 31.7
--- NOTE | 2017-06-20 01:22 | PN ---
Teaching Attending Note Name of Resident: Can Magaña ATTENDING PHYSICIAN STATEMENT I saw and evaluated the patient. Chart, data, imaging reviewed I reviewed the resident's note and discussed the case with the resident. I agree with the resident's findings and plan as documented with modifications below. SUBJECTIVE: 81 yo F with a significant past medical history of CAD s/p 2 stents, CHF, s/p mitral valvuloplasty, HTN, chronic lung disease, hx of second hand smoke exposure sent to ED for worsening SOB. Patient had a chest x-ray done 5 days ago which came back questionable for pneumonia in the left lung. Dr. Dailey ordered z-pack but with little to no alleviation. Reports cough with yellowish sputum. Denied fevers, recent travels, sick contacts, or animal exposure. OBJECTIVE: Last Vital Signs Temp Pulse Resp BP Pulse Ox 97.7 F 70 20 137/49 98 06/20/17 00:28 06/20/17 00:28 06/20/17 00:28 06/20/17 00:28 06/20/17 00:28 General- anxious, appears mildly uncomfortable heent- no sinus tenderness, at, nc, nonicteric sclera neck- supple, no jvd cv-s1+s2+ RRR, systolic murmur+ CHest- decreased breath sounds, bibasilar crackes+ Abdomen- soft, nt, no masses, bs+ ext- no pitting edema appreciated CT scan of chest reviewed- b/l ground glass changes, left upper lober, b/l basilar infiltrates. EKG - nsr, no acute st-t changes Abnormal Lab Results 06/19/17 06/19/17 06/19/17 19:50 19:50 19:50 Hgb 8.9 L D Hct 27.5 L D MCV 73.9 L MCH 24.0 L RDW 21.1 H Monocytes % 13.5 H PT with INR 12.20 H Potassium 3.3 L D Chloride 110 H Anion Gap 7 L BUN 32 H D Creatinine 1.2 H D Random Glucose 123 H Alkaline Phosphatase 147 H B-Natriuretic Peptide 518.38 H Total Protein 5.8 L Albumin 2.7 L ASSESSMENT AND PLAN: #Shortness of breath - may be 2/2 community acquired/atypical pneumonia as there are reported infiltrates on chest and pt c/o intermittent productive cough. Differential diagnosis for sob also includes anxiety and pulmonary hypertension. ACS unlikely as chest pain absent, ekg wnl, trop negative. -admit to med/surg -sputum culture -blood cx x2 -mycoplasma IgM -Legionella ur ag -Levaquin 750mg IV daily -supplemental o2 via nasal cannula -cardiology evaluation -consider transthoracic echo -xanax prn if anxiety #Resume home medications for chronic medical problems #DVT ppx -heparin sc #Diet -low fat, 2gNa diet
[2017-06-20] MEDS: hydrALAZINE HCL 25 MG TABLET (FP) PO SCH ×3 (06:26→21:11)
[2017-06-20] MEDS: LEVOTHYROXINE NA 100 MCG TABLET (FP) PO SCH (06:27)
[2017-06-20] MEDS: ALPRAZolam 0.25 MG TABLET PO SCH ×5 (06:27→21:14)
[2017-06-20] MEDS: VALSARTAN 160 MG TABLET (UD) PO SCH (09:09)
[2017-06-20] MEDS: ENOXAPARIN NA (PORCINE) 30 MG/0.3 ML DISP.SYRIN SQ SCH (09:09)
[2017-06-20] MEDS: ESCITALOPRAM OXALATE 10 MG TABLET (FP) PO SCH (09:09)
[2017-06-20] MEDS: ASPIRIN 81 MG CHEWABLE TABLETS PO SCH (09:09)
[2017-06-20] MEDS: CYANOCOBALAMIN 1,000 MCG TABLET (FP) PO SCH (09:09)
[2017-06-20] MEDS: PANTOPRAZOLE 40 MG TABLET (FP) PO SCH ×2 (09:10→21:11)
[2017-06-20] MEDS ORDERED: LEVOFLOXACIN 750 MG IVPB 150 ML IVPB ONE (10:00)
[2017-06-20] MEDS ORDERED: PATIENT'S OWN MEDICATION (NON-FORMULARY) (Umeclidinium Bromide [Incruse Ellipta] 62.5 MCG) IH SCH (10:00)
[2017-06-20] MEDS ORDERED: POLYETHYLENE GLYCOL 3350 255 GM BTL PO SCH (10:00)
[2017-06-20] MEDS ORDERED: POTASSIUM CHLORIDE 8 MEQ PO SCH (10:00)
[2017-06-20] MEDS ORDERED: PATIENT'S OWN MEDICATION (NON-FORMULARY) (Mometasone/Formoterol [Dulera 100 Mcg/5 Mcg Inha IH SCH (10:00)
[2017-06-20] MEDS ORDERED: FUROSEMIDE 20 MG TABLET (FP) PO SCH (10:00)
[2017-06-20 10:58] LABS: MCH 23.4 pg (25.7-33.7); MCHC 31.8 g/dl (32.0-36.0); MEAN CELL VOLUME 73.5 fl (80-96); MEAN PLT VOLUME 8.3 fl (7.5-11.1); PLATELET COUNT 258 K/MM3 (134-434); RDW 21.3 % (11.6-15.6); WHITE BLOOD COUNT 8.7 K/mm3 (4.0-10.0)
[2017-06-20 11:27] LABS: ALBUMIN 2.6 g/dl (3.4-5.0); ANION GAP 8 (8-16); BILIRUBIN,TOTAL 0.4 mg/dL (0.2-1.0); CALCIUM 9.1 mg/dL (8.5-10.1); CO2 25 mmol/L (21-32); CREATININE 0.9 mg/dL (0.55-1.02); GLUCOSE,RANDOM 105 mg/dL (74-106); SGOT/AST 34 U/L (15-37); SGPT/ALT 28 U/L (12-78); TOT PROT 5.4 g/dl (6.4-8.2)
[2017-06-20 11:28] LABS: ALK PHOS 153 U/L (45-117)
[2017-06-20] MEDS ORDERED: TIOTROPIUM BROMIDE 18 MCG/INH (DEVICE W/ 5 CAPSULES) IH SCH (12:00)
--- NOTE | 2017-06-20 12:00 | CON.PULM ---
Consult Consult Specialty:: PULM/CCM Referred by:: CARLOS Reason for Consultation:: PNA - History of Present Illness Chief Complaint: SOB / cough History of Present Illness: 81 F, well known to me from previous admissions. CAD S/P PCI x 2, CHF, s/p mitral valvuloplasty, HTN, GERD, and suspected COPD from second hand smoke exposure. Admitted via the ER due to SOB and worsening cough that has not responded to outpatient Zithromax. No travel history. No sick contacts. No fever or chills. No night sweats or hemoptysis. There is a concern from her family members about aspiration due to her long, significant history of GERD. She follows with Dr Mercedes. CT : New JUAN LUIS and basilar infiltrates compared to old CT imaging. Small left effusion. - History Source History Provided By: Patient Limitations to Obtaining History: No Limitations - Past Medical History Cardio/Vascular: Yes: CAD, HTN, Other (coronary stenting on 2 occasions, s/p mitral valvuloplasty) Pulmonary: Yes: COPD Gastrointestinal: Yes: Constipation, Diverticulitis, Gastritis, GERD, Other ( colon adenomas) Musculoskeletal: Yes: Chronic low back pain, Osteoarthritis Endocrine: Yes: Hypothyroidism, Other (osteoporosis) - Past Surgical History Past Surgical History: Yes: Arthrosocopy, Cholecystectomy, Hysterectomy - Alcohol/Substance Use Hx Alcohol Use: No History of Substance Use: reports: None - Smoking History Smoking history: Never smoked Have you smoked in the past 12 months: No Aproximately how many cigarettes per day: 0 - Social History ADL: Independent History of Recent Travel: No Home Medications - Allergies Allergies/Adverse Reactions: Allergies Allergy/AdvReac Type Severity Reaction Status Date / Time codeine [Codeine] Allergy Verified 06/19/17 18:44 meperidine HCl [From Demerol] Allergy Verified 06/19/17 18:44 - Home Medications Home Medications: Ambulatory Orders Aspirin [ASA -] 81 mg PO DAILY 04/19/17 Atorvastatin Ca [Lipitor] 40 mg PO HS 04/19/17 Cyanocobalamin (Vitamin B-12) [Vitamin B-12] 1,000 mcg PO DAILY 04/19/17 Escitalopram Oxalate [Lexapro -] 20 mg PO DAILY 04/19/17 Fluticasone Furoate [Flonase Sensimist] 9.9 ml NS DAILY 04/19/17 Furosemide 20 mg PO DAILY 04/19/17 Levothyroxine [Synthroid -] 100 mcg PO DAILY 04/19/17 Mag Carb/Al Hydrox/Alginic AC [Gaviscon Liquid] 15 - 30 ml PO Q6H 04/19/17 Mometasone/Formoterol [Dulera 100 Mcg/5 Mcg Inhaler] 2 inh IH BID 04/19/17 Polyethylene Glycol 3350 [Glycolax] 119 gm PO DAILY 04/19/17 Potassium Chloride [Klor-Con 8] 8 meq PO DAILY 04/19/17 Albuterol 0.083% Nebulizer Charissa [Ventolin 0.083% Nebulizer Soln -] 1 amp NEB Q6H PRN #30 amp 04/28/17 Alprazolam [Xanax] 0.25 mg PO TID #90 tablet MDD 1mg 04/28/17 Valsartan [Diovan] 320 mg PO DAILY #60 tablet 04/28/17 Fluticasone/Vilanterol [Breo Ellipta 100-25 Mcg INH] 1 each IH DAILY 06/19/17 Hydralazine HCl [Apresoline -] 75 mg PO TID 06/19/17 Omeprazole 40 mg PO BID 06/19/17 Prednisone [Deltasone -] 10 mg PO DAILY 06/19/17 Umeclidinium [place] [Incruse Ellipta] 62.5 mcg IH DAILY 06/19/17 Family Disease History - Family Disease History Family Disease History: Diabetes: Brother (bladder cancer), Heart Disease: Mother, Brother, CA: Brother, Sister (colon cancer, esophageal cancer,ovarian cancer), Other: Father (cva) Review of Systems - Review of Systems Constitutional: reports: Malaise. denies: Chills, Fever, Night Sweats, Unintentional Wgt. Loss Eyes: reports: No Symptoms HENT: reports: No Symptoms Neck: reports: No Symptoms Cardiovascular: reports: Edema, Shortness of Breath. denies: Chest Pain, Palpitations Respiratory: reports: Cough, SOB, SOB on Exertion. denies: Hemoptysis, Wheezing Gastrointestinal: reports: No Symptoms Genitourinary: reports: No Symptoms Breasts: reports: No Symptoms Reported Musculoskeletal: reports: No Symptoms Integumentary: reports: No Symptoms Neurological: reports: No Symptoms Endocrine: reports: No Symptoms Hematology/Lymphatic: reports: No Symptoms Psychiatric: reports: No Symptoms Physical Exam Vital Sings: Vital Signs Temperature 98.4 F 06/20/17 08:05 Pulse Rate 73 06/20/17 08:05 Respiratory Rate 20 06/20/17 08:05 Blood Pressure 140/78 06/20/17 08:05 O2 Sat by Pulse Oximetry (%) 97 06/20/17 08:42 Constitutional: Yes: Well Nourished, No Distress Eyes: Yes: Conjunctiva Clear, EOM Intact HENT: Yes: Atraumatic, Normocephalic Neck: Yes: Supple, Trachea Midline Cardiovascular: Yes: Regular Rate and Rhythm Respiratory: Yes: Cough, On Nasal O2, Rhonchi. No: Accessory Muscle Use, Stridor, Tachypnea, Wheezes ...Inspection: Yes: WNL ...Clubbing: No Gastrointestinal: Yes: Normal Bowel Sounds, Soft, Abdomen, Obese Renal/: Yes: WNL Musculoskeletal: Yes: WNL Extremities: Yes: WNL Edema: Yes Peripheral Pulses WNL: Yes Integumentary: Yes: WNL Neurological: Yes: WNL, Alert, Oriented ...Motor Strength: WNL Psychiatric: Yes: WNL, Alert, Oriented Labs: CBC, BMP 06/20/17 10:51 06/20/17 10:51 Imaging - Results Chest X-ray: Report Reviewed, Image Reviewed Cat Scan: Report Reviewed, Image Reviewed Problem List - Problems (1) Anxiety about health Code(s): F41.8 - OTHER SPECIFIED ANXIETY DISORDERS (2) Hypothyroid Code(s): E03.9 - HYPOTHYROIDISM, UNSPECIFIED Qualifiers: Hypothyroidism type: acquired Qualified Code(s): E03.9 - Hypothyroidism, unspecified (3) Pneumonia Code(s): J18.9 - PNEUMONIA, UNSPECIFIED ORGANISM Qualifiers: Pneumonia type: due to unspecified organism Laterality: bilateral Lung location: unspecified part of lung Qualified Code(s): J18.9 - Pneumonia, unspecified organism (4) Shortness of breath Code(s): R06.02 - SHORTNESS OF BREATH (5) Colon adenoma Code(s): D12.6 - BENIGN NEOPLASM OF COLON, UNSPECIFIED (6) Constipation Code(s): K59.00 - CONSTIPATION, UNSPECIFIED (7) Coronary artery disease Code(s): I25.10 - ATHSCL HEART DISEASE OF [place] CORONARY ARTERY W/O ANG PCTRS Qualifiers: Coronary Disease-Associated Artery/Lesion type: [place] artery [place] vs. transplanted heart: [place] heart Associated angina: without angina Qualified Code(s): I25.10 - Atherosclerotic heart disease of [place] coronary artery without angina pectoris (8) Diverticula of intestine Code(s): K57.30 - DVRTCLOS OF LG INT W/O PERFORATION OR ABSCESS W/O BLEEDING (9) Dyspnea Code(s): R06.00 - DYSPNEA, UNSPECIFIED Qualifiers: Dyspnea type: dyspnea on exertion Qualified Code(s): R06.09 - Other forms of dyspnea (10) Edema Code(s): R60.9 - EDEMA, UNSPECIFIED Qualifiers: Edema type: localized Qualified Code(s): R60.0 - Localized edema (11) Emphysema of lung Code(s): J43.9 - EMPHYSEMA, UNSPECIFIED Qualifiers: Emphysema type: unspecified Qualified Code(s): J43.9 - Emphysema, unspecified (12) H/O heart artery stent Code(s): Z95.5 - PRESENCE OF CORONARY ANGIOPLASTY IMPLANT AND GRAFT (13) Hyperlipidemia Code(s): E78.5 - HYPERLIPIDEMIA, UNSPECIFIED Qualifiers: Hyperlipidemia type: Pure hypercholesterolemia (14) Hypertension Code(s): I10 - ESSENTIAL (PRIMARY) HYPERTENSION Qualifiers: Hypertension type: essential hypertension Qualified Code(s): I10 - Essential (primary) hypertension (15) Left ventricular diastolic dysfunction Code(s): I51.9 - HEART DISEASE, UNSPECIFIED (16) Obesity (BMI 30.0-34.9) Code(s): E66.9 - OBESITY, UNSPECIFIED (17) Reflux esophagitis Code(s): K21.0 - GASTRO-ESOPHAGEAL REFLUX DISEASE WITH ESOPHAGITIS Assessment/Plan Agree with Levaquin Check sputum Check urinary antigen O2 Medrol daily BD TX VTE prophylaxis GI evaluation tomorrow -> May need swallow evaluation Will follow Thank you. Dr Garcia
--- NOTE | 2017-06-20 12:08 | PN ---
Progress Note, Physician Chief Complaint: Coughing and worrying. History of Present Illness: Patient with multiple illnesses including HTN, ASHD, CHF, Copd, Hypothyroidism and recent JUAN LUIS pneumonia comes to ER with increasing cough and SOB. Initial ER CXR showed only chronic chamges but CAT of Chest shows multiple area of increased infiltration and some small effusions. A liver nodule is also reported but we will see when our Radiology MD reads the report if it was there in previous studies. She was put on Zpack last week. - Current Medication List Current Medications: Active Medications Alprazolam (Xanax -) 0.25 mg PO TID [facility] Last Admin: 06/20/17 08:47 Dose: 0.25 mg Aspirin (Asa -) 81 mg PO DAILY [facility] Last Admin: 06/20/17 09:09 Dose: 81 mg Atorvastatin Calcium (Lipitor -) 40 mg PO HS [facility] Budesonide/Formoterol Fumarate (Symbicort 160/4.5mcg -) 2 puff IH BID [facility] Cyanocobalamin (Vitamin B12 -) 1,000 mcg PO DAILY [facility] Last Admin: 06/20/17 09:09 Dose: 1,000 mcg Enoxaparin Sodium (Lovenox -) 30 mg SQ DAILY [facility] Last Admin: 06/20/17 09:09 Dose: 30 mg Escitalopram Oxalate (Lexapro -) 20 mg PO DAILY [facility] Last Admin: 06/20/17 09:09 Dose: 20 mg Furosemide (Lasix Injection -) 40 mg IVPB DAILY [facility] Hydralazine HCl (Apresoline -) 75 mg PO TID [facility] Last Admin: 06/20/17 06:26 Dose: 75 mg Levofloxacin (Levaquin 750 Mg Premixed Ivpb -) 150 mls @ 100 mls/hr IVPB Q2D@ 1000 [facility] Levothyroxine Sodium (Synthroid -) 100 mcg PO AM [facility] Last Admin: 06/20/17 06:27 Dose: 100 mcg Pantoprazole Sodium (Protonix -) 40 mg PO BID [facility] Last Admin: 06/20/17 09:10 Dose: 40 mg Polyethylene Glycol (Miralax (For Daily Use) -) 17 gm PO DAILY [facility] Potassium Chloride (K-Dur -) 10 meq PO DAILY [facility] Tiotropium [place] (Spiriva -) 1 puff IH DAILY [facility] Valsartan (Diovan -) 320 mg PO DAILY [facility] Last Admin: 06/20/17 09:09 Dose: 320 mg - Objective Vital Signs: Vital Signs Temperature 98.4 F 06/20/17 08:05 Pulse Rate 79 06/20/17 11:38 Respiratory Rate 20 06/20/17 08:05 Blood Pressure 140/78 06/20/17 08:05 O2 Sat by Pulse Oximetry (%) 96 06/20/17 11:38 Constitutional: Yes: Anxious Eyes: Yes: Conjunctiva Clear HENT: Yes: Nasal Congestion Cardiovascular: Yes: Tachycardia Respiratory: Yes: Cough, Rales, Rhonchi, SOB Gastrointestinal: Yes: Soft Genitourinary: No: [place] Present Edema: LLE: 1+, RLE: 1+ Neurological: Yes: Alert, Oriented Labs: CBC, BMP 06/20/17 10:51 06/20/17 10:51 INR, PTT INR 1.11 (0.82-1.09) 06/19/17 19:50 - ....Imaging Chest X-ray: Report Reviewed Cat Scan: Report Reviewed Assessment/Plan Patient has Acute exacerbation of COPD with bilateral increase in bronchial infiltrates. Also probable component of CHF. Will continue IV antibiotics and aerosol Rx. Pulmonary Consult placed. Will try several days of IV Lasix. F/U Cardiology and lab. ? Liver nodule; to compare to old CT scans.
[2017-06-20] MEDS: methylPREDNISolone NA SUCC 40 MG/1 ML VIAL IVPB SCH (13:32)
[2017-06-20] MEDS: ACETAMINOPHEN 325 MG TABLET (FP) PO PRN (13:35)
[2017-06-20] MEDS: BUDESONIDE/FORMETEROL FUMARATE 160/4.5 mcg INHALER IH SCH ×2 (13:37→21:12)
[2017-06-20] MEDS: POTASSIUM CHLORIDE TABS 10 MEQ TABLET.ER (FP) PO SCH (13:37)
[2017-06-20] MEDS: POLYETHYLENE GLYCOL 3350 119 GM BTL PO SCH (13:37)
[2017-06-20] MEDS: ACLIDINIUM BROMIDE 400 MCG/INH AERO.POWD IH SCH ×2 (13:37→21:12)
[2017-06-20] MEDS ORDERED: PT OWN MED DRAWER 7, Y5N ONE (13:52)
[2017-06-20] MEDS: ALBUTEROL SO4 0.083% IH SOL 2.5 MG/3 ML VIAL.NEB. NEB SCH ×2 (14:15→22:46)
[2017-06-20 15:05] LABS: URINE APPEARANCE CLEAR; URINE BILIRUBIN NEGATIVE (NEGATIVE); URINE BLOOD NEGATIVE (NEGATIVE); URINE COLOR LTYELLOW; URINE GLUCOSE (UA) NEGATIVE (NEGATIVE); URINE KETONE NEGATIVE (NEGATIVE); URINE LEUK ESTERASE NEGATIVE (NEGATIVE); URINE NITRITE NEGATIVE (NEGATIVE); URINE PROTEIN NEGATIVE (NEGATIVE); URINE UROBILINOGEN NEGATIVE mg/dL (0.2-1.0)
[2017-06-20] MEDS: ATORVASTATIN CA 40 MG TABLET (FP) PO SCH (21:11)
[2017-06-21] MEDS: ACETAMINOPHEN 325 MG TABLET (FP) PO PRN ×2 (01:34→20:05)
[2017-06-21] MEDS: LEVOTHYROXINE NA 100 MCG TABLET (FP) PO SCH (06:01)
[2017-06-21] MEDS: hydrALAZINE HCL 25 MG TABLET (FP) PO SCH ×3 (06:01→22:06)
[2017-06-21] MEDS: ALPRAZolam 0.25 MG TABLET PO SCH ×3 (08:19→22:12)
--- NOTE | 2017-06-21 08:47 | CON.CARD ---
Consult Consult Specialty:: cardio Referred by:: radha Reason for Consultation:: sob - History of Present Illness Chief Complaint: cough/sob History of Present Illness: 81 yo female here with sob and cough. producing clear phlegm with cough. had outpt cxr last week with ? left sided infiltrate--rx'd abx but sx's progressed. she reports chronic h/o waxing and waning leg swelling. says it was severe several months ago but much better of late. says wt loss occurred after last admit and rehab stay, down to 153 lbs then but hasn't been weighing herself at home lately. denies cp, papitations, syncope PMH: CAD HTN copd venous insufficiency - Past Medical History Cardio/Vascular: Yes: CAD, HTN, Other (coronary stenting on 2 occasions, s/p mitral valvuloplasty) Pulmonary: Yes: COPD Gastrointestinal: Yes: Constipation, Diverticulitis, Gastritis, GERD, Other ( colon adenomas) Musculoskeletal: Yes: Chronic low back pain, Osteoarthritis Endocrine: Yes: Hypothyroidism, Other (osteoporosis) - Past Surgical History Past Surgical History: Yes: Arthrosocopy, Cholecystectomy, Hysterectomy - Alcohol/Substance Use Hx Alcohol Use: No History of Substance Use: reports: None - Smoking History Smoking history: Never smoked Have you smoked in the past 12 months: No Aproximately how many cigarettes per day: 0 - Social History ADL: Independent History of Recent Travel: No Home Medications - Allergies Allergies/Adverse Reactions: Allergies Allergy/AdvReac Type Severity Reaction Status Date / Time codeine [Codeine] Allergy Verified 06/19/17 18:44 meperidine HCl [From Demerol] Allergy Verified 06/19/17 18:44 - Home Medications Home Medications: Ambulatory Orders Aspirin [ASA -] 81 mg PO DAILY 04/19/17 Atorvastatin Ca [Lipitor] 40 mg PO HS 04/19/17 Cyanocobalamin (Vitamin B-12) [Vitamin B-12] 1,000 mcg PO DAILY 04/19/17 Escitalopram Oxalate [Lexapro -] 20 mg PO DAILY 04/19/17 Fluticasone Furoate [Flonase Sensimist] 9.9 ml NS DAILY 04/19/17 Furosemide 20 mg PO DAILY 04/19/17 Levothyroxine [Synthroid -] 100 mcg PO DAILY 04/19/17 Mag Carb/Al Hydrox/Alginic AC [Gaviscon Liquid] 15 - 30 ml PO Q6H 04/19/17 Mometasone/Formoterol [Dulera 100 Mcg/5 Mcg Inhaler] 2 inh IH BID 04/19/17 Polyethylene Glycol 3350 [Glycolax] 119 gm PO DAILY 04/19/17 Potassium Chloride [Klor-Con 8] 8 meq PO DAILY 04/19/17 Albuterol 0.083% Nebulizer [place] [Ventolin 0.083% Nebulizer Soln -] 1 amp NEB Q6H PRN #30 amp 04/28/17 Alprazolam [Xanax] 0.25 mg PO TID #90 tablet MDD 1mg 04/28/17 Valsartan [Diovan] 320 mg PO DAILY #60 tablet 04/28/17 Fluticasone/Vilanterol [Breo Ellipta 100-25 Mcg INH] 1 each IH DAILY 06/19/17 Hydralazine HCl [Apresoline -] 75 mg PO TID 06/19/17 Omeprazole 40 mg PO BID 06/19/17 Prednisone [Deltasone -] 10 mg PO DAILY 06/19/17 Umeclidinium [place] [Incruse Ellipta] 62.5 mcg IH DAILY 06/19/17 Family Disease History - Family Disease History Family Disease History: Diabetes: Brother (bladder cancer), Heart Disease: Mother, Brother, CA: Brother, Sister (colon cancer, esophageal cancer,ovarian cancer), Other: Father (cva) Review of Systems - Review of Systems Constitutional: denies: Chills, Fever Eyes: denies: Eye Pain HENT: denies: Nasal Congestion Neck: denies: Stiffness Cardiovascular: denies: Palpitations Respiratory: denies: Orthopnea, PND Gastrointestinal: denies: Diarrhea, Rectal Bleeding Genitourinary: denies: Burning, Hematuria Musculoskeletal: denies: Muscle Pain Integumentary: denies: Rash Neurological: denies: Numbness, Seizure, Syncope Endocrine: denies: Excessive Sweating Hematology/Lymphatic: denies: Excessive Bleeding Vital Signs: Vital Signs Temperature 97.7 F 06/21/17 05:00 Pulse Rate 67 06/21/17 05:00 Respiratory Rate 18 06/21/17 05:00 Blood Pressure 143/64 06/21/17 05:00 O2 Sat by Pulse Oximetry (%) 96 06/21/17 00:00 Constitutional: Yes: No Distress, Obese Eyes: No: Sclera Icterus HENT: No: Nasal Congestion Neck: No: Decreased ROM Respiratory: Yes: CTA Bilaterally, Diminished (JUAN LUIS). No: Accessory Muscle Use, Rales, Wheezes Gastrointestinal: Yes: Normal Bowel Sounds. No: Distention, Hepatomegaly, Palpable Mass, Tenderness Cardiovascular: Yes: Regular Rate and Rhythm JVD: No Carotid Bruit: No PMI: Non-Displaced Heart Sounds: Yes: S1, S2. No: Gallop Murmur: No: Systolic Murmur, Diastolic Murmur Musculoskeletal: Yes: Other (No kyphosis) Extremities: No: Cold, Cyanosis Edema: No Peripheral Pulses: 2+ Left Carotid, 2+ Right Carotid, 2+ Left Doralis Pedis, 2+ Right Dorsalis Pedis Integumentary: No: Jaundice Neurological: Yes: Alert, Oriented (x3) Psychiatric: No: Agitated - Other Data Labs, Other Data: INR, PTT INR 1.11 (0.82-1.09) 06/19/17 19:50 Laboratory Tests 06/19/17 06/20/17 06/20/17 19:50 10:51 10:51 WBC 8.7 Hgb 9.3 L Plt Count 258 Sodium 141 Potassium 3.4 L Carbon Dioxide 25 BUN 22 H D Creatinine 1.2 H D 0.9 D AST 34 ALT 28 Creatine Kinase 73 Troponin I < 0.02 B-Natriuretic Peptide 518.38 H Assessment/Plan echo 03/2017: nl lv/rv, mild ar/mr mibi 03/2017: nl mpi, nl lvef CT chest: patchy consolidation JUAN LUIS c/w acute PNA; consolidation/ATX bilat bases with assctd small effusions; R lobe liver lesion requires further evaluation ECG: ectopic atrial rhythm; normal axis/intervals; no path q's; diffuse NSST-Ts = no change vs . PNA (JUAN LUIS): -CT findings as above -normal temp and WBC curve -appears clinically euvolemic -abx per pulmonary copd: -appears stable h/o acute diastolic chf likely secondary to hypertensive emergency (04/19): -sob and elevated bnp likely due to hypertensive emergency causing acute HFpEF -bun/creat [place] with brief lasix course so changed back to home dose lasix 20 po qd -wt climbed 153 to 162 on discharge then -bnp 500 (prior range 100-1K) -bedscale wt here 158. likely euvolemic. -rec d/c iv lasix--cont home 20 po daily -recent echo and mibi unremarkable chronic LE edema/venous insuff: -home regimen lasix 20 po qd htn: -with hypertensive emergency 04/19 -treated with home regimen cozaar and hydralazine. (bystolic stopped 2/2 bradycardia, priro h/o worsened edema with ccb) -bp currently controlled, cont same meds cad s/p remote pci: -no recent angina or ischemia (03/20) -trop currently normal, no ekg changes -cont home regimen asa, statin, arb anemia: -baseline hgb 10s recently -currently dropped -w/u per pmd KENIA: -creat 1.2 on admit, back down after hydration
[2017-06-21 08:51] LABS: BASOPHIL 0.6 % (0-2.0); EOSINOPHIL 2.8 % (0-4.5); MCH 23.3 pg (25.7-33.7); MCHC 32.1 g/dl (32.0-36.0); MEAN CELL VOLUME 72.8 fl (80-96); MEAN PLT VOLUME 8.7 fl (7.5-11.1); NEUTROPHILS 63.5 % (42.8-82.8); PLATELET COUNT 244 K/MM3 (134-434); RDW 20.3 % (11.6-15.6); WHITE BLOOD COUNT 8.3 K/mm3 (4.0-10.0)
[2017-06-21 09:02] LABS: ALBUMIN 2.5 g/dl (3.4-5.0); ANION GAP 9 (8-16); CALCIUM 9.1 mg/dL (8.5-10.1); CO2 26 mmol/L (21-32); GLUCOSE,RANDOM 85 mg/dL (74-106); MAGNESIUM 1.9 mg/dL (1.8-2.4)
[2017-06-21 09:06] LABS: ALK PHOS 147 U/L (45-117); BILIRUBIN,TOTAL 0.6 mg/dL (0.2-1.0); CREATININE 0.9 mg/dL (0.55-1.02); PHOSPHOROUS 2.3 mg/dL (2.5-4.9); SGOT/AST 33 U/L (15-37); SGPT/ALT 27 U/L (12-78); TOT PROT 5.1 g/dl (6.4-8.2)
[2017-06-21] MEDS: ALBUTEROL SO4 0.083% IH SOL 2.5 MG/3 ML VIAL.NEB. NEB SCH ×2 (09:28→22:41)
[2017-06-21] MEDS ORDERED: PT OWN MED DRAWER 7, Y5N ONE (09:54)
[2017-06-21] MEDS: ENOXAPARIN NA (PORCINE) 30 MG/0.3 ML DISP.SYRIN SQ SCH (09:57)
[2017-06-21] MEDS: methylPREDNISolone NA SUCC 40 MG/1 ML VIAL IVPB SCH (09:57)
[2017-06-21] MEDS: VALSARTAN 160 MG TABLET (UD) PO SCH (09:57)
[2017-06-21] MEDS: CYANOCOBALAMIN 1,000 MCG TABLET (FP) PO SCH (09:57)
[2017-06-21] MEDS: ESCITALOPRAM OXALATE 10 MG TABLET (FP) PO SCH (09:57)
[2017-06-21] MEDS: ASPIRIN 81 MG CHEWABLE TABLETS PO SCH (09:57)
[2017-06-21] MEDS: POTASSIUM CHLORIDE TABS 10 MEQ TABLET.ER (FP) PO SCH (09:57)
[2017-06-21] MEDS: BUDESONIDE/FORMETEROL FUMARATE 160/4.5 mcg INHALER IH SCH ×2 (09:58→22:07)
[2017-06-21] MEDS: ACLIDINIUM BROMIDE 400 MCG/INH AERO.POWD IH SCH ×2 (09:58→22:07)
[2017-06-21] MEDS: PANTOPRAZOLE 40 MG TABLET (FP) PO SCH ×2 (09:58→22:06)
[2017-06-21] MEDS: POLYETHYLENE GLYCOL 3350 119 GM BTL PO SCH (09:58)
[2017-06-21] MEDS ORDERED: FUROSEMIDE 40 MG/4 ML INJECTABLE VIAL IVPB SCH (10:00)
--- NOTE | 2017-06-21 10:03 | PN ---
Progress Note (short form) - Note Progress Note: Patient sen and examined this AM
--- NOTE | 2017-06-21 12:16 | PN ---
Progress Note (short form) - Note Progress Note: PULMONARY Feels slightly better today. Still with nonproductive cough. No fevers or chills. Last Vital Signs Temp Pulse Resp BP Pulse Ox 97.5 F L 73 20 146/63 94 L 06/21/17 09:00 06/21/17 09:28 06/21/17 09:00 06/21/17 09:00 06/21/17 09:28 Gen: NAD at rest Heart: RRR Lung: decreased breath sounds at the bases Abd: soft, nontender Ext: no edema CBC, BMP 06/21/17 08:00 06/21/17 08:00 Active Medications Acetaminophen (Tylenol -) 650 mg PO Q4H PRN PRN Reason: FEVER OR PAIN Last Admin: 06/21/17 01:34 Dose: 650 mg Aclidinium [place] (Tudorza -) 1 puff IH BID [facility] Last Admin: 06/21/17 09:58 Dose: 1 puff Albuterol Sulfate (Ventolin 0.083% Nebulizer Soln -) 1 amp NEB BID [facility] Last Admin: 06/21/17 09:28 Dose: 1 amp Alprazolam (Xanax -) 0.25 mg PO TID [facility] Last Admin: 06/21/17 08:19 Dose: Not Given Aspirin (Asa -) 81 mg PO DAILY [facility] Last Admin: 06/21/17 09:57 Dose: 81 mg Atorvastatin Calcium (Lipitor -) 40 mg PO HS [facility] Last Admin: 06/20/17 21:11 Dose: 40 mg Budesonide/Formoterol Fumarate (Symbicort 160/4.5mcg -) 2 puff IH BID [facility] Last Admin: 06/21/17 09:58 Dose: 2 puff Cyanocobalamin (Vitamin B12 -) 1,000 mcg PO DAILY [facility] Last Admin: 06/21/17 09:57 Dose: 1,000 mcg Enoxaparin Sodium (Lovenox -) 30 mg SQ DAILY [facility] Last Admin: 06/21/17 09:57 Dose: 30 mg Escitalopram Oxalate (Lexapro -) 20 mg PO DAILY [facility] Last Admin: 06/21/17 09:57 Dose: 20 mg Furosemide (Lasix -) 20 mg PO DAILY [facility] Hydralazine HCl (Apresoline -) 75 mg PO TID [facility] Last Admin: 06/21/17 06:01 Dose: 75 mg Levofloxacin (Levaquin 750 Mg Premixed Ivpb -) 150 mls @ 100 mls/hr IVPB Q2D@ 1000 [facility] Levothyroxine Sodium (Synthroid -) 100 mcg PO AM [facility] Last Admin: 06/21/17 06:01 Dose: 100 mcg Methylprednisolone Sodium Succinate (Solu-Medrol -) 40 mg IVPB DAILY [facility] Stop: 06/24/17 10:01 Last Admin: 06/21/17 09:57 Dose: 40 mg Pantoprazole Sodium (Protonix -) 40 mg PO BID [facility] Last Admin: 06/21/17 09:58 Dose: 40 mg Polyethylene Glycol (Miralax (For Daily Use) -) 17 gm PO DAILY [facility] Last Admin: 06/21/17 09:58 Dose: 17 gm Potassium Chloride (K-Dur -) 10 meq PO DAILY [facility] Last Admin: 06/21/17 09:57 Dose: 10 meq Valsartan (Diovan -) 320 mg PO DAILY [facility] Last Admin: 06/21/17 09:57 Dose: 320 mg A/P Pneumonia COPD LV Diastolic Dysfunction CAD HTN Acute Kidney Injury improving - continue antibiotics - continue medrol - inhaled bronchodilators - O2 as needed - DVT prophylaxis
--- NOTE | 2017-06-21 16:36 | EKG ---
Test Reason : Blood Pressure : / mmHG Vent. Rate : 063 BPM Atrial Rate : 063 BPM P-R Int : 138 ms QRS Dur : 092 ms QT Int : 436 ms P-R-T Axes : 000 010 016 degrees QTc Int : 446 ms NORMAL SINUS RHYTHM NORMAL ECG WHEN COMPARED WITH ECG OF 19-APR-2017 12:05, PREMATURE ATRIAL COMPLEXES ARE NO LONGER PRESENT TX INTERVAL HAS DECREASED Confirmed by CARINA FARLEY MD ([id number]) on 06/21/2017 4:35:48 PM Referred By: Confirmed By:CARINA FARLEY MD
--- NOTE | 2017-06-21 19:14 | PN ---
Progress Note (short form) - Note Progress Note: patient felt better today with some cough, but she did sleep better through the night Still quite anxious. Denies chest pain. Tolerating her diet. Appreciate followup from . She continues on IV Levaquin. Lab shows hemoglobin lower 8.6 with microcytic indices and first stool guaiac negative. Followup lab a.m. Physical therapy ordered. With alkaline phosphatase elevated and liver nodule noted GI consult will be ordered, but I want to speak to the patient first on Wednesday morning. On exam: Vital Signs Temp 98.1 F 06/21/17 17:05 Pulse 85 06/21/17 17:05 Resp 20 06/21/17 17:05 BP 155/61 06/21/17 17:05 Pulse Ox 94 L 06/21/17 09:28 Intake & Output 06/20/17 06/21/17 06/21/17 23:59 11:59 23:59 Intake Total 875 Balance 875 Weight 158 lb 4.8 oz Intake: IVPB 200 Oral 675 Other: Voiding Method Diaper Toilet # Unmeasured Voids Void 2 2 Bowel Movement No Yes Yes Weight Measurement Method Built in Bedscale alert Slightly anxious but improved. Chest a few rhonchi both bases. Heart regular. Abdomen soft Extremity SCDs are on, but no edema is present today as it was yesterday Abnormal Lab Results 06/21/17 06/21/17 08:00 08:00 Hgb 8.6 L Hct 26.9 L MCV 72.8 L MCH 23.3 L RDW 20.3 H Monocytes % 14.2 H Chloride 109 H BUN 21 H Phosphorus 2.3 L D Alkaline Phosphatase 147 H Total Protein 5.1 L Albumin 2.5 L impression: Acute bronchitis with possible new left lower lobe pneumonia Possible CHF with past history of heart failure. Anxiety about her illness. Microcytic anemia. Liver nodule with elevated alkaline phosphatase plan: Continue IV antibiotics. Followup lab with iron B12 folic acid CEA levels. GI consult. Followup pulmonary consult and cardiology.
[2017-06-21] MEDS: ATORVASTATIN CA 40 MG TABLET (FP) PO SCH (22:06)
[2017-06-22] MEDS: hydrALAZINE HCL 25 MG TABLET (FP) PO SCH ×3 (06:19→21:09)
[2017-06-22] MEDS: LEVOTHYROXINE NA 100 MCG TABLET (FP) PO SCH (06:19)
[2017-06-22] MEDS: ALPRAZolam 0.25 MG TABLET PO SCH ×3 (06:24→21:16)
[2017-06-22] MEDS ORDERED: PT OWN MED DRAWER 7, Y5N ONE ×5 (06:55→22:16)
[2017-06-22 08:26] LABS: ANION GAP 9 (8-16); CALCIUM 8.9 mg/dL (8.5-10.1); CO2 27 mmol/L (21-32); CREATININE 1.2 mg/dL (0.55-1.02); GLUCOSE,RANDOM 89 mg/dL (74-106)
[2017-06-22 08:27] LABS: BASOPHIL 0.4 % (0-2.0); EOSINOPHIL 0.4 % (0-4.5); MCH 23.5 pg (25.7-33.7); MEAN CELL VOLUME 73.5 fl (80-96); MEAN PLT VOLUME 8.6 fl (7.5-11.1); NEUTROPHILS 62.5 % (42.8-82.8); PLATELET COUNT 256 K/MM3 (134-434); WHITE BLOOD COUNT 8.2 K/mm3 (4.0-10.0)
[2017-06-22 08:44] LABS: FERRITIN 14.933 ng/ml (6.9-282.5)
[2017-06-22] MEDS: ALBUTEROL SO4 0.083% IH SOL 2.5 MG/3 ML VIAL.NEB. NEB SCH ×2 (09:47→22:50)
[2017-06-22] MEDS: ENOXAPARIN NA (PORCINE) 30 MG/0.3 ML DISP.SYRIN SQ SCH (09:53)
[2017-06-22] MEDS: BUDESONIDE/FORMETEROL FUMARATE 160/4.5 mcg INHALER IH SCH ×2 (09:54→21:20)
[2017-06-22] MEDS: ACLIDINIUM BROMIDE 400 MCG/INH AERO.POWD IH SCH ×2 (09:54→21:20)
[2017-06-22] MEDS: PANTOPRAZOLE 40 MG TABLET (FP) PO SCH ×2 (09:56→21:10)
[2017-06-22] MEDS: VALSARTAN 160 MG TABLET (UD) PO SCH (09:56)
[2017-06-22] MEDS: CYANOCOBALAMIN 1,000 MCG TABLET (FP) PO SCH (09:56)
[2017-06-22] MEDS: ESCITALOPRAM OXALATE 10 MG TABLET (FP) PO SCH (09:56)
[2017-06-22] MEDS: FUROSEMIDE 20 MG TABLET (FP) PO SCH (09:56)
[2017-06-22] MEDS: POTASSIUM CHLORIDE TABS 10 MEQ TABLET.ER (FP) PO SCH (09:56)
[2017-06-22] MEDS: ASPIRIN 81 MG CHEWABLE TABLETS PO SCH (09:56)
[2017-06-22] MEDS: methylPREDNISolone NA SUCC 40 MG/1 ML VIAL IVPB SCH (09:57)
[2017-06-22] MEDS: POLYETHYLENE GLYCOL 3350 119 GM BTL PO SCH ×2 (09:57→21:12)
[2017-06-22] MEDS ORDERED: LEVOFLOXACIN 750 MG IVPB 150 ML IVPB SCH (10:00)
--- NOTE | 2017-06-22 10:30 | PN ---
Progress Note, Physician Chief Complaint: Still some coughing; walked with PT. History of Present Illness: Patient with Acute Bronchitis, COPD, ? Bronchiectasis and probable pneumonia is feeling a little better but still some coughing when sitting or walking. On IV antibiotics and IV Steroids and aerosol Rx. Patient was also told today about a ?"cyst" in her liver on Chest CT and I will request her GI MD to evaluate. Also Microcytic anemia with borderline low Ferritin; 1st stool negative for blood. Still a lot of anxiety. - Current Medication List Current Medications: Active Medications Acetaminophen (Tylenol -) 650 mg PO Q4H PRN PRN Reason: FEVER OR PAIN Last Admin: 06/21/17 20:05 Dose: 650 mg Aclidinium [place] (Tudorza -) 1 puff IH BID [facility] Last Admin: 06/22/17 09:54 Dose: 1 puff Albuterol Sulfate (Ventolin 0.083% Nebulizer Soln -) 1 amp NEB BID [facility] Last Admin: 06/22/17 09:47 Dose: 1 amp Alprazolam (Xanax -) 0.25 mg PO TID [facility] Last Admin: 06/22/17 06:24 Dose: Not Given Aspirin (Asa -) 81 mg PO DAILY [facility] Last Admin: 06/22/17 09:56 Dose: 81 mg Atorvastatin Calcium (Lipitor -) 40 mg PO HS [facility] Last Admin: 06/21/17 22:06 Dose: 40 mg Budesonide/Formoterol Fumarate (Symbicort 160/4.5mcg -) 2 puff IH BID [facility] Last Admin: 06/22/17 09:54 Dose: 2 puff Cyanocobalamin (Vitamin B12 -) 1,000 mcg PO DAILY [facility] Last Admin: 06/22/17 09:56 Dose: 1,000 mcg Enoxaparin Sodium (Lovenox -) 30 mg SQ DAILY [facility] Last Admin: 06/22/17 09:53 Dose: 30 mg Escitalopram Oxalate (Lexapro -) 20 mg PO DAILY [facility] Last Admin: 06/22/17 09:56 Dose: 20 mg Furosemide (Lasix -) 20 mg PO DAILY [facility] Last Admin: 06/22/17 09:56 Dose: 20 mg Hydralazine HCl (Apresoline -) 75 mg PO TID [facility] Last Admin: 06/22/17 06:19 Dose: 75 mg Levofloxacin (Levaquin 750 Mg Premixed Ivpb -) 150 mls @ 100 mls/hr IVPB Q2D@ 1000 [facility] Last Admin: 06/22/17 09:56 Dose: 100 mls/hr Levothyroxine Sodium (Synthroid -) 100 mcg PO AM [facility] Last Admin: 06/22/17 06:19 Dose: 100 mcg Methylprednisolone Sodium Succinate (Solu-Medrol -) 40 mg IVPB DAILY [facility] Stop: 06/24/17 10:01 Last Admin: 06/22/17 09:57 Dose: 40 mg Pantoprazole Sodium (Protonix -) 40 mg PO BID [facility] Last Admin: 06/22/17 09:56 Dose: 40 mg Polyethylene Glycol (Miralax (For Daily Use) -) 17 gm PO DAILY [facility] Last Admin: 06/22/17 09:57 Dose: 17 gm Potassium Chloride (K-Dur -) 10 meq PO DAILY [facility] Last Admin: 06/22/17 09:56 Dose: 10 meq Valsartan (Diovan -) 320 mg PO DAILY [facility] Last Admin: 06/22/17 09:56 Dose: 320 mg - Objective Vital Signs: Vital Signs Temperature 98.2 F 06/22/17 06:00 Pulse Rate 78 06/22/17 09:48 Respiratory Rate 20 06/22/17 06:00 Blood Pressure 139/66 06/22/17 06:00 O2 Sat by Pulse Oximetry (%) 98 06/22/17 09:48 Constitutional: Yes: Anxious Neck: Yes: Supple Cardiovascular: Yes: Tachycardia Respiratory: Yes: On Nasal O2, Rales (both bases but less than Wednesday.), Rhonchi Gastrointestinal: Yes: Soft. No: Hepatomegaly Genitourinary: No: [place] Present Edema: LLE: Trace, RLE: Trace Neurological: Yes: Alert, Oriented Labs: CBC, BMP 06/22/17 06:00 06/22/17 06:00 INR, PTT INR 1.11 (0.82-1.09) 06/19/17 19:50 Problem List - Problems (1) Pneumonia Assessment/Plan: Being ttreated with IV antibiotics and steroids Followed by Pulmonary service; on O2. Add chest PT. Code(s): J18.9 - PNEUMONIA, UNSPECIFIED ORGANISM Qualifiers: Pneumonia type: due to unspecified organism Laterality: bilateral Lung location: unspecified part of lung Qualified Code(s): J18.9 - Pneumonia, unspecified organism (2) Anxiety about health Assessment/Plan: Chronic anxiety persists Code(s): F41.8 - OTHER SPECIFIED ANXIETY DISORDERS (3) Acute on chronic diastolic (congestive) heart failure Assessment/Plan: Followed by Cardiology Code(s): I50.33 - ACUTE ON CHRONIC DIASTOLIC (CONGESTIVE) HEART FAILURE (4) Hypertension Assessment/Plan: 139/66 Code(s): I10 - ESSENTIAL (PRIMARY) HYPERTENSION Qualifiers: Hypertension type: essential hypertension Qualified Code(s): I10 - Essential (primary) hypertension (5) Liver mass, right lobe Assessment/Plan: For GI eval F/U lab ordered. Code(s): R16.0 - HEPATOMEGALY, NOT ELSEWHERE CLASSIFIED (6) Microcytic anemia Assessment/Plan: await Iron level and repeat stool guiac Ferritin low normal. Code(s): D50.9 - IRON DEFICIENCY ANEMIA, UNSPECIFIED
[2017-06-22 10:36] LABS: ANISOCYTOSIS 2+; HYPOCHROMIA 1+; OVALOCYTE FEW; PLATELET ESTIMATE ADEQUATE (NORMAL); POLYCHROMASIA F
--- NOTE | 2017-06-22 12:22 | PN ---
Progress Note (short form) - Note Progress Note: PULMONARY Reports ambulating with slight dyspnea. Still with nonproductive cough. No fevers or chills. Last Vital Signs Temp Pulse Resp BP Pulse Ox 97.3 F L 78 20 149/60 98 06/22/17 10:00 06/22/17 10:00 06/22/17 10:00 06/22/17 10:00 06/22/17 09:48 Gen: NAD at rest Heart: RRR Lung: scattered wheeze Abd: soft, nontender Ext: no edema CBC, BMP 06/22/17 06:00 06/22/17 06:00 Active Medications Acetaminophen (Tylenol -) 650 mg PO Q4H PRN PRN Reason: FEVER OR PAIN Last Admin: 06/21/17 20:05 Dose: 650 mg Aclidinium [place] (Tudorza -) 1 puff IH BID [facility] Last Admin: 06/22/17 09:54 Dose: 1 puff Albuterol Sulfate (Ventolin 0.083% Nebulizer Soln -) 1 amp NEB BID [facility] Last Admin: 06/22/17 09:47 Dose: 1 amp Alprazolam (Xanax -) 0.25 mg PO TID [facility] Last Admin: 06/22/17 06:24 Dose: Not Given Aspirin (Asa -) 81 mg PO DAILY [facility] Last Admin: 06/22/17 09:56 Dose: 81 mg Atorvastatin Calcium (Lipitor -) 40 mg PO HS [facility] Last Admin: 06/21/17 22:06 Dose: 40 mg Budesonide/Formoterol Fumarate (Symbicort 160/4.5mcg -) 2 puff IH BID [facility] Last Admin: 06/22/17 09:54 Dose: 2 puff Cyanocobalamin (Vitamin B12 -) 1,000 mcg PO DAILY [facility] Last Admin: 06/22/17 09:56 Dose: 1,000 mcg Enoxaparin Sodium (Lovenox -) 30 mg SQ DAILY [facility] Last Admin: 06/22/17 09:53 Dose: 30 mg Escitalopram Oxalate (Lexapro -) 20 mg PO DAILY [facility] Last Admin: 06/22/17 09:56 Dose: 20 mg Furosemide (Lasix -) 20 mg PO DAILY [facility] Last Admin: 06/22/17 09:56 Dose: 20 mg Hydralazine HCl (Apresoline -) 75 mg PO TID [facility] Last Admin: 06/22/17 06:19 Dose: 75 mg Levofloxacin (Levaquin 750 Mg Premixed Ivpb -) 150 mls @ 100 mls/hr IVPB Q2D@ 1000 [facility] Last Admin: 06/22/17 09:56 Dose: 100 mls/hr Levothyroxine Sodium (Synthroid -) 100 mcg PO AM [facility] Last Admin: 06/22/17 06:19 Dose: 100 mcg Methylprednisolone Sodium Succinate (Solu-Medrol -) 40 mg IVPB DAILY [facility] Stop: 06/24/17 10:01 Last Admin: 06/22/17 09:57 Dose: 40 mg Pantoprazole Sodium (Protonix -) 40 mg PO BID [facility] Last Admin: 06/22/17 09:56 Dose: 40 mg Polyethylene Glycol (Miralax (For Daily Use) -) 17 gm PO DAILY [facility] Last Admin: 06/22/17 09:57 Dose: 17 gm Potassium Chloride (K-Dur -) 10 meq PO DAILY [facility] Last Admin: 06/22/17 09:56 Dose: 10 meq Valsartan (Diovan -) 320 mg PO DAILY [facility] Last Admin: 06/22/17 09:56 Dose: 320 mg A/P Pneumonia COPD LV Diastolic Dysfunction CAD HTN Acute Kidney Injury improving - continue antibiotics - continue medrol daily - inhaled bronchodilators - O2 as needed - DVT prophylaxis
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
[2017-06-22] MEDS: ACETAMINOPHEN 325 MG TABLET (FP) PO PRN (18:08)
[2017-06-22] MEDS: ATORVASTATIN CA 40 MG TABLET (FP) PO SCH (21:10)
[2017-06-23] MEDS: ALPRAZolam 0.25 MG TABLET PO SCH ×3 (06:13→21:35)
[2017-06-23] MEDS: LEVOTHYROXINE NA 100 MCG TABLET (FP) PO SCH (06:14)
[2017-06-23] MEDS: hydrALAZINE HCL 25 MG TABLET (FP) PO SCH ×3 (06:14→21:35)
--- NOTE | 2017-06-23 07:48 | PN ---
Progress Note (short form) - Note Progress Note: Chief Complaint: cough/sob History of Present Illness: S: changed to po lasix today. still sob. no cp, palps, dizziness. Current Medications: Active Medications Acetaminophen (Tylenol -) 650 mg PO Q4H PRN PRN Reason: FEVER OR PAIN Last Admin: 06/21/17 20:05 Dose: 650 mg Aclidinium [place] (Tudorza -) 1 puff IH BID [facility] Last Admin: 06/22/17 09:54 Dose: 1 puff Albuterol Sulfate (Ventolin 0.083% Nebulizer Soln -) 1 amp NEB BID [facility] Last Admin: 06/22/17 09:47 Dose: 1 amp Alprazolam (Xanax -) 0.25 mg PO TID [facility] Last Admin: 06/22/17 06:24 Dose: Not Given Aspirin (Asa -) 81 mg PO DAILY [facility] Last Admin: 06/22/17 09:56 Dose: 81 mg Atorvastatin Calcium (Lipitor -) 40 mg PO HS [facility] Last Admin: 06/21/17 22:06 Dose: 40 mg Budesonide/Formoterol Fumarate (Symbicort 160/4.5mcg -) 2 puff IH BID [facility] Last Admin: 06/22/17 09:54 Dose: 2 puff Cyanocobalamin (Vitamin B12 -) 1,000 mcg PO DAILY [facility] Last Admin: 06/22/17 09:56 Dose: 1,000 mcg Enoxaparin Sodium (Lovenox -) 30 mg SQ DAILY [facility] Last Admin: 06/22/17 09:53 Dose: 30 mg Escitalopram Oxalate (Lexapro -) 20 mg PO DAILY [facility] Last Admin: 06/22/17 09:56 Dose: 20 mg Furosemide (Lasix -) 20 mg PO DAILY [facility] Last Admin: 06/22/17 09:56 Dose: 20 mg Hydralazine HCl (Apresoline -) 75 mg PO TID [facility] Last Admin: 06/22/17 06:19 Dose: 75 mg Levofloxacin (Levaquin 750 Mg Premixed Ivpb -) 150 mls @ 100 mls/hr IVPB Q2D@ 1000 [facility] Last Admin: 06/22/17 09:56 Dose: 100 mls/hr Levothyroxine Sodium (Synthroid -) 100 mcg PO AM [facility] Last Admin: 06/22/17 06:19 Dose: 100 mcg Methylprednisolone Sodium Succinate (Solu-Medrol -) 40 mg IVPB DAILY [facility] Stop: 06/24/17 10:01 Last Admin: 06/22/17 09:57 Dose: 40 mg Pantoprazole Sodium (Protonix -) 40 mg PO BID [facility] Last Admin: 06/22/17 09:56 Dose: 40 mg Polyethylene Glycol (Miralax (For Daily Use) -) 17 gm PO DAILY [facility] Last Admin: 06/22/17 09:57 Dose: 17 gm Potassium Chloride (K-Dur -) 10 meq PO DAILY [facility] Last Admin: 06/22/17 09:56 Dose: 10 meq Valsartan (Diovan -) 320 mg PO DAILY [facility] Last Admin: 06/22/17 09:56 Dose: 320 mg - Objective Vital Signs: Vital Signs Temperature 98.2 F 06/22/17 06:00 Pulse Rate 78 06/22/17 09:48 Respiratory Rate 20 06/22/17 06:00 Blood Pressure 139/66 06/22/17 06:00 O2 Sat by Pulse Oximetry (%) 98 06/22/17 09:48 Constitutional: Yes: No Distress, Obese Eyes: No: Sclera Icterus HENT: No: Nasal Congestion Neck: No: Decreased ROM Respiratory: Yes: CTA Bilaterally, Diminished (JUAN LUIS). No: Accessory Muscle Use, Rales, Wheezes Gastrointestinal: Yes: Normal Bowel Sounds. No: Distention, Hepatomegaly, Palpable Mass, Tenderness Cardiovascular: Yes: Regular Rate and Rhythm JVD: No Carotid Bruit: No PMI: Non-Displaced Heart Sounds: Yes: S1, S2. No: Gallop Murmur: No: Systolic Murmur, Diastolic Murmur Musculoskeletal: Yes: Other (No kyphosis) Extremities: No: Cold, Cyanosis Edema: No Peripheral Pulses: 2+ Left Carotid, 2+ Right Carotid, 2+ Left Doralis Pedis, 2+ Right Dorsalis Pedis Integumentary: No: Jaundice Neurological: Yes: Alert, Oriented (x3) Psychiatric: No: Agitated - Other Data Labs, Other Data: Laboratory Tests 06/21/17 06/22/17 06/22/17 08:00 06:00 06:00 Hgb 8.7 L Sodium 145 Potassium 3.7 Carbon Dioxide 27 BUN 30 H D Creatinine 0.9 1.2 H D Assessment/Plan echo 03/2017: nl lv/rv, mild ar/mr mibi 03/2017: nl mpi, nl lvef CT chest: patchy consolidation JUAN LUIS c/w acute PNA; consolidation/ATX bilat bases with assctd small effusions; R lobe liver lesion requires further evaluation ECG: ectopic atrial rhythm; normal axis/intervals; no path q's; diffuse NSST-Ts = no change vs 7.17 PNA (JUAN LUIS): -CT findings as above -normal temp and WBC curve -appears clinically euvolemic -abx per pulmonary copd: -appears stable h/o acute diastolic chf likely secondary to hypertensive emergency (04/19): -sob and elevated bnp likely due to hypertensive emergency causing acute HFpEF -bun/creat [place] with brief lasix course so changed back to home dose lasix 20 po qd -wt climbed 153 to 162 on discharge then -bnp 500 (prior range 100-1K) -bedscale wt here 158. likely euvolemic. -rec d/c iv lasix--cont home 20 po daily -recent echo and mibi unremarkable chronic LE edema/venous insuff: -home regimen lasix 20 po qd htn: -with hypertensive emergency 04/19 -treated with home regimen cozaar and hydralazine. (bystolic stopped 2/2 bradycardia, priro h/o worsened edema with ccb) -bp currently controlled, cont same meds cad s/p remote pci: -no recent angina or ischemia (03/20) -trop currently normal, no ekg changes -cont home regimen asa, statin, arb anemia: -baseline hgb 10s recently -currently dropped -w/u per pmd KENIA: -creat 1.2 on admit, back down after hydration. slight bump today after IV lasix. (already transitioned to po lasix today 06/22).
--- NOTE | 2017-06-23 08:23 | PN ---
Progress Note (short form) - Note Progress Note: Less coughing but she couldn't sleep last nite after PM aerosol; to D/C Dr. Mercedes's note reviewed. Await tumor markers. Still anxious. Less coughing. Vital Signs Temp 97.8 F 06/23/17 06:00 Pulse 71 06/23/17 06:00 Resp 73 H 06/23/17 06:00 BP 145/63 06/23/17 06:00 Pulse Ox 98 06/22/17 20:16 Intake & Output 06/22/17 06/22/17 06/23/17 11:59 23:59 11:59 Intake Total 950 0 Balance 950 0 Weight 154 lb 12.8 oz 155 lb 2 oz Intake: IVPB 150 Oral 800 0 Other: Voiding Method Toilet Toilet # Unmeasured Voids Void 1 Bowel Movement No No Weight Measurement Method Chair Scale Standing Scale On Exam: AQlert Chest: Only rare rhonchi at bases Cor: no M Abd: Soft: nontender Ext: No edema Abnormal Lab Results 06/22/17 06/22/17 06/22/17 06:00 06:00 06:00 Hgb 8.7 L Hct 27.2 L MCV 73.5 L MCH 23.5 L RDW 21.0 H Monocytes % 14.5 H Chloride 109 H BUN 30 H D Creatinine 1.2 H D Iron 18 L Vitamin B12 2031 H Serum Folate 20 H IMP: Acute pneumonia COPD with acute exacerbation Liver Mass GERD CHF Resolved Renal Failure acute Plan: Lower Levaquin dose F/U Lab Await Tumor Markers PT Problem List - Problems (1) Pneumonia Code(s): J18.9 - PNEUMONIA, UNSPECIFIED ORGANISM Qualifiers: Pneumonia type: due to unspecified organism Laterality: bilateral Lung location: unspecified part of lung Qualified Code(s): J18.9 - Pneumonia, unspecified organism (2) Anxiety about health Code(s): F41.8 - OTHER SPECIFIED ANXIETY DISORDERS (3) Acute on chronic diastolic (congestive) heart failure Code(s): I50.33 - ACUTE ON CHRONIC DIASTOLIC (CONGESTIVE) HEART FAILURE (4) Hypertension Code(s): I10 - ESSENTIAL (PRIMARY) HYPERTENSION Qualifiers: Hypertension type: essential hypertension Qualified Code(s): I10 - Essential (primary) hypertension (5) Liver mass, right lobe Code(s): R16.0 - HEPATOMEGALY, NOT ELSEWHERE CLASSIFIED (6) Microcytic anemia Code(s): D50.9 - IRON DEFICIENCY ANEMIA, UNSPECIFIED
[2017-06-23 08:31] LABS: BASOPHIL 0.4 % (0-2.0); EOSINOPHIL 0.2 % (0-4.5); MCH 23.5 pg (25.7-33.7); MCHC 32.2 g/dl (32.0-36.0); MEAN CELL VOLUME 72.8 fl (80-96); MEAN PLT VOLUME 8.5 fl (7.5-11.1); NEUTROPHILS 67.1 % (42.8-82.8); PLATELET COUNT 273 K/MM3 (134-434); RDW 20.4 % (11.6-15.6); WHITE BLOOD COUNT 8.7 K/mm3 (4.0-10.0)
[2017-06-23 09:20] LABS: ANION GAP 13 (8-16); CALCIUM 9.9 mg/dL (8.5-10.1); CO2 23 mmol/L (21-32); CREATININE 1.3 mg/dL (0.55-1.02); GLUCOSE,RANDOM 82 mg/dL (74-106)
[2017-06-23] MEDS ORDERED: PT OWN MED DRAWER 7, Y5N ONE ×2 (09:49→21:44)
[2017-06-23] MEDS ORDERED: ALBUTEROL SO4 0.083% IH SOL 2.5 MG/3 ML VIAL.NEB. NEB SCH (10:00)
[2017-06-23] MEDS: ACLIDINIUM BROMIDE 400 MCG/INH AERO.POWD IH SCH ×2 (10:02→21:54)
[2017-06-23] MEDS: LEVOFLOXACIN 500 MG IVPB 100 ML IVPB SCH (10:02)
[2017-06-23] MEDS: methylPREDNISolone NA SUCC 40 MG/1 ML VIAL IVPB SCH (10:03)
[2017-06-23] MEDS: ENOXAPARIN NA (PORCINE) 30 MG/0.3 ML DISP.SYRIN SQ SCH (10:03)
[2017-06-23] MEDS: BUDESONIDE/FORMETEROL FUMARATE 160/4.5 mcg INHALER IH SCH ×2 (10:03→21:54)
[2017-06-23] MEDS: PANTOPRAZOLE 40 MG TABLET (FP) PO SCH ×2 (10:04→21:35)
[2017-06-23] MEDS: FUROSEMIDE 20 MG TABLET (FP) PO SCH (10:04)
[2017-06-23] MEDS: POTASSIUM CHLORIDE TABS 10 MEQ TABLET.ER (FP) PO SCH (10:04)
[2017-06-23] MEDS: VALSARTAN 160 MG TABLET (UD) PO SCH (10:04)
[2017-06-23] MEDS: ASPIRIN 81 MG CHEWABLE TABLETS PO SCH (10:04)
[2017-06-23] MEDS: ESCITALOPRAM OXALATE 10 MG TABLET (FP) PO SCH (10:04)
[2017-06-23] MEDS: CYANOCOBALAMIN 1,000 MCG TABLET (FP) PO SCH (10:05)
[2017-06-23] MEDS: POLYETHYLENE GLYCOL 3350 119 GM BTL PO SCH ×2 (10:44→21:37)
--- NOTE | 2017-06-23 11:20 | PN ---
Progress Note (short form) - Note Progress Note: S: still sob/cough, slightly better. no cp, palps, dizziness. Current Medications Generic Name Dose Route Start Last Admin Trade Name Freq PRN Reason Stop Dose Admin Acetaminophen 650 mg 06/20/17 13:25 06/22/17 18:08 Tylenol - PO 650 mg Q4H PRN Administration FEVER OR PAIN Aclidinium [place] 1 puff 06/20/17 13:00 06/23/17 10:02 Tudorza - IH 1 puff BID HUNTER Administration Albuterol Sulfate 1 amp 06/23/17 10:00 Ventolin 0.083% Nebulizer Soln - NEB DAILY HUNTER Alprazolam 0.25 mg 06/20/17 06:00 06/23/17 06:13 Xanax - PO Not Given TID HUNTER Aspirin 81 mg 06/20/17 10:00 06/23/17 10:04 Asa - PO 81 mg DAILY HUNTER Administration Atorvastatin Calcium 40 mg 06/20/17 22:00 06/22/17 21:10 Lipitor - PO 40 mg HS HUNTER Administration Budesonide/Formoterol Fumarate 2 puff 06/20/17 13:00 06/23/17 10:03 Symbicort 160/4.5mcg - IH 2 puff BID HUNTER Administration Cyanocobalamin 1,000 mcg 06/20/17 10:00 06/23/17 10:05 Vitamin B12 - PO 1,000 mcg DAILY HUNTER Administration Enoxaparin Sodium 30 mg 06/20/17 10:00 06/23/17 10:03 Lovenox - SQ 30 mg DAILY HUNTER Administration Escitalopram Oxalate 20 mg 06/20/17 10:00 06/23/17 10:04 Lexapro - PO 20 mg DAILY HUNTER Administration Furosemide 20 mg 06/22/17 10:00 06/23/17 10:04 Lasix - PO 20 mg DAILY HUNTER Administration Hydralazine HCl 75 mg 06/20/17 06:00 06/23/17 06:14 Apresoline - PO 75 mg TID HUNTER Administration Levofloxacin 100 mls @ 100 mls/hr 06/23/17 10:00 06/23/17 10:02 Levaquin 500 Mg Premixed Ivpb - IVPB 100 mls/hr DAILY HUNTER Administration Levothyroxine Sodium 100 mcg 06/20/17 07:00 06/23/17 06:14 Synthroid - PO 100 mcg AM HUNTER Administration Methylprednisolone Sodium Succinate 40 mg 06/20/17 12:15 06/23/17 10:03 Solu-Medrol - IVPB 06/24/17 10:01 40 mg DAILY HUNTER Administration Pantoprazole Sodium 40 mg 06/20/17 10:00 06/23/17 10:04 Protonix - PO 40 mg BID HUNTER Administration Polyethylene Glycol 17 gm 06/22/17 22:00 06/23/17 10:44 Miralax (For Daily Use) - PO 17 gm BID HUNTER Administration Potassium Chloride 10 meq 06/20/17 12:00 06/23/17 10:04 K-Dur - PO 10 meq DAILY HUNTER Administration Valsartan 320 mg 06/20/17 10:00 06/23/17 10:04 Diovan - PO 320 mg DAILY HUNTER Administration - Objective Vital Signs: Vital Signs Period Temp Pulse Resp BP Sys/Rios Pulse Ox Last 24 Hr 97.5 F-98.0 F 71-84 20-73 138-157/55-74 98 Constitutional: Yes: No Distress, Obese Eyes: No: Sclera Icterus HENT: No: Nasal Congestion Neck: No: Decreased ROM Respiratory: Yes: CTA Bilaterally. No: Accessory Muscle Use, Rales, Wheezes Gastrointestinal: Yes: Normal Bowel Sounds. No: Distention, Hepatomegaly, Palpable Mass, Tenderness Cardiovascular: Yes: Regular Rate and Rhythm JVD: No Heart Sounds: Yes: S1, S2. No: Gallop Murmur: No: Systolic Murmur, Diastolic Murmur Extremities: No: Cold, Cyanosis Edema: No Integumentary: No: Jaundice diaphoresis Neurological: Yes: Alert, Oriented (x3) Psychiatric: No: Agitated - Other Data Labs, Other Data: CBC, BMP 06/23/17 07:30 06/23/17 07:30 echo 03/2017: nl lv/rv, mild ar/mr mibi 03/2017: nl mpi, nl lvef CT chest: patchy consolidation JUAN LUIS c/w acute PNA; consolidation/ATX bilat bases with assctd small effusions; R lobe liver lesion requires further evaluation ECG: ectopic atrial rhythm; normal axis/intervals; no path q's; diffuse NSST-Ts = no change vs 7.17 a/p: PNA (JUAN LUIS): -CT findings as above -appears clinically euvolemic -on abx copd: -appears stable h/o acute diastolic chf likely secondary to hypertensive emergency (04/19): -sob and elevated bnp likely due to hypertensive emergency causing acute HFpEF -bun/creat [place] with brief lasix course so changed back to home dose lasix 20 po qd -wt climbed 153 to 162 on discharge then -bnp 500 (prior range 100-1K) -bedscale wt here 158. likely euvolemic. -cont home 20 po daily -recent echo and mibi unremarkable chronic LE edema/venous insuff: -home regimen lasix 20 po qd htn: -with hypertensive emergency 04/19 -treated with home regimen cozaar and hydralazine. (bystolic stopped 2/2 bradycardia, priro h/o worsened edema with ccb) -bp currently controlled, cont same meds cad s/p remote pci: -no recent angina or ischemia (03/20) -trop currently normal, no ekg changes -cont home regimen asa, statin, arb anemia: -baseline hgb 10s recently -currently dropped -w/u per pmd KENIA: -creat 1.2 on admit, back down after hydration. slight bump today after IV lasix. (already transitioned to po lasix 06/22).
[2017-06-23] MEDS ORDERED: ALBUTEROL SO4 0.083% IH SOL 2.5 MG/3 ML VIAL.NEB. NEB PRN (12:23)
--- NOTE | 2017-06-23 12:28 | PN ---
Progress Note (short form) - Note Progress Note: PULMONARY AWAKE/ALERT APPEARS STABLE ALBUTEROL CAUSED JITTERS AND INSOMNIA VSS/AFEBRILE PALE/ANICTERIC SCATTERED MINIMAL LEFT SIDED RHONCHI S1S2 BS+ NO EDEMA LABS/MEDS/NOTES/IMAGING REVIEWED A/P Pneumonia COPD LV Diastolic Dysfunction CAD HTN Acute Kidney Injury improving - continue antibiotics - medrol changed to oral prednisone - changed albuterol to prn - ICS/LABA/TUDORZA - O2 as needed - DVT prophylaxis Abundio HAGAN MD
[2017-06-23] MEDS: ATORVASTATIN CA 40 MG TABLET (FP) PO SCH (21:35)
[2017-06-24] MEDS: hydrALAZINE HCL 25 MG TABLET (FP) PO SCH ×3 (06:31→21:27)
[2017-06-24] MEDS: LEVOTHYROXINE NA 100 MCG TABLET (FP) PO SCH (06:32)
[2017-06-24] MEDS: ALPRAZolam 0.25 MG TABLET PO SCH ×4 (06:32→23:34)
[2017-06-24 07:34] LABS: BASOPHIL 0.4 % (0-2.0); EOSINOPHIL 0.4 % (0-4.5); MCH 23.3 pg (25.7-33.7); MCHC 31.9 g/dl (32.0-36.0); MEAN PLT VOLUME 8.5 fl (7.5-11.1); NEUTROPHILS 62.8 % (42.8-82.8); PLATELET COUNT 285 K/MM3 (134-434); RDW 20.8 % (11.6-15.6); WHITE BLOOD COUNT 9.2 K/mm3 (4.0-10.0)
[2017-06-24 07:49] LABS: ANION GAP 8 (8-16); CALCIUM 9.4 mg/dL (8.5-10.1); CO2 26 mmol/L (21-32); GLUCOSE,RANDOM 80 mg/dL (74-106)
--- NOTE | 2017-06-24 08:52 | PN ---
Progress Note (short form) - Note Progress Note: AFP normal and liver sono suggests hemangioma; Will await decision of GI Re: CT scan + contrast; Creatinine1. Less cough;slept better Had PT Vital Signs Temp 97.8 F 06/24/17 05:19 Pulse 72 06/24/17 05:19 Resp 20 06/24/17 05:19 BP 154/76 06/24/17 05:19 Pulse Ox 97 06/23/17 21:00 Intake & Output 06/23/17 06/23/17 06/24/17 11:59 23:59 11:59 Intake Total 0 700 Balance 0 700 Weight 155 lb 2 oz 158 lb Intake: IVPB 100 Oral 0 600 Other: Voiding Method Toilet Toilet # Unmeasured Voids Void 1 0 Bowel Movement No Yes No # Bowel Movements 1 Weight Measurement Method Standing Scale Built in Bedscale On Exam: Alert Chest: Few Rhonchi at bases Cor: Reg Ext: No edema Abnormal Lab Results 06/23/17 06/24/17 06/24/17 07:30 06:40 06:40 Hgb 8.7 L Hct 27.3 L MCV 73.0 L MCH 23.3 L MCHC 31.9 L RDW 20.8 H Monocytes % 11.9 H Potassium 3.4 L Chloride 108 H 109 H BUN 37 H D 36 H Creatinine 1.3 H IMP: Pneumonia acute resolving COPD with Acute exacerbation Anxiety Liver Mass? Hemangioma Anemia GERD Plan: Eval for home O2 Await GI Opinion on Liver tests ?Oral steroids and antibiotics Problem List - Problems (1) Pneumonia Code(s): J18.9 - PNEUMONIA, UNSPECIFIED ORGANISM Qualifiers: Pneumonia type: due to unspecified organism Laterality: bilateral Lung location: unspecified part of lung Qualified Code(s): J18.9 - Pneumonia, unspecified organism (2) Anxiety about health Code(s): F41.8 - OTHER SPECIFIED ANXIETY DISORDERS (3) Acute on chronic diastolic (congestive) heart failure Code(s): I50.33 - ACUTE ON CHRONIC DIASTOLIC (CONGESTIVE) HEART FAILURE (4) Hypertension Code(s): I10 - ESSENTIAL (PRIMARY) HYPERTENSION Qualifiers: Hypertension type: essential hypertension Qualified Code(s): I10 - Essential (primary) hypertension (5) Liver mass, right lobe Code(s): R16.0 - HEPATOMEGALY, NOT ELSEWHERE CLASSIFIED (6) Microcytic anemia Code(s): D50.9 - IRON DEFICIENCY ANEMIA, UNSPECIFIED
--- NOTE | 2017-06-24 10:02 | PN ---
Progress Note (short form) - Note Progress Note: S: sob improved, no cp, palps, dizziness. Current Medications Generic Name Dose Route Start Last Admin Trade Name Freq PRN Reason Stop Dose Admin Acetaminophen 650 mg 06/20/17 13:25 06/22/17 18:08 Tylenol - PO 650 mg Q4H PRN Administration FEVER OR PAIN Aclidinium [place] 1 puff 06/20/17 13:00 06/23/17 21:54 Tudorza - IH Not Given BID HUNTER Albuterol Sulfate 1 amp 06/23/17 12:23 Ventolin 0.083% Nebulizer Soln - NEB DAILY PRN ASTHMA Alprazolam 0.25 mg 06/20/17 06:00 06/24/17 06:32 Xanax - PO Not Given TID HUNTER Aspirin 81 mg 06/20/17 10:00 06/23/17 10:04 Asa - PO 81 mg DAILY HUNTER Administration Atorvastatin Calcium 40 mg 06/20/17 22:00 06/23/17 21:35 Lipitor - PO 40 mg HS HUNTER Administration Budesonide/Formoterol Fumarate 2 puff 06/20/17 13:00 06/23/17 21:54 Symbicort 160/4.5mcg - IH Not Given BID HUNTER Cyanocobalamin 1,000 mcg 06/20/17 10:00 06/23/17 10:05 Vitamin B12 - PO 1,000 mcg DAILY HUNTER Administration Enoxaparin Sodium 30 mg 06/20/17 10:00 06/23/17 10:03 Lovenox - SQ 30 mg DAILY HUNTER Administration Escitalopram Oxalate 20 mg 06/20/17 10:00 06/23/17 10:04 Lexapro - PO 20 mg DAILY HUNTER Administration Furosemide 20 mg 06/22/17 10:00 06/23/17 10:04 Lasix - PO 20 mg DAILY HUNTER Administration Hydralazine HCl 75 mg 06/20/17 06:00 06/24/17 06:31 Apresoline - PO 75 mg TID HUNTER Administration Levofloxacin 100 mls @ 100 mls/hr 06/23/17 10:00 06/23/17 10:02 Levaquin 500 Mg Premixed Ivpb - IVPB 100 mls/hr DAILY HUNTER Administration Levothyroxine Sodium 100 mcg 06/20/17 07:00 06/24/17 06:32 Synthroid - PO 100 mcg AM HUNTER Administration Pantoprazole Sodium 40 mg 06/20/17 10:00 06/23/17 21:35 Protonix - PO 40 mg BID HUNTER Administration Polyethylene Glycol 17 gm 06/22/17 22:00 06/23/17 21:37 Miralax (For Daily Use) - PO 17 gm BID HUNTER Administration Potassium Chloride 10 meq 06/20/17 12:00 06/23/17 10:04 K-Dur - PO 10 meq DAILY HUNTER Administration Valsartan 320 mg 06/20/17 10:00 06/23/17 10:04 Diovan - PO 320 mg DAILY HUNTER Administration - Objective Vital Signs: Vital Signs Period Temp Pulse Resp BP Sys/Rios Pulse Ox Last 24 Hr 97.5 F-98.8 F 69-86 20-21 138-154/57-76 97-97 Constitutional: Yes: No Distress, Obese Eyes: No: Sclera Icterus HENT: No: Nasal Congestion Neck: No: Decreased ROM Respiratory: Yes: CTA Bilaterally. No: Accessory Muscle Use, Rales, Wheezes Gastrointestinal: Yes: Normal Bowel Sounds. No: Distention, Hepatomegaly, Palpable Mass, Tenderness Cardiovascular: Yes: Regular Rate and Rhythm JVD: No Heart Sounds: Yes: S1, S2. No: Gallop Murmur: No: Systolic Murmur, Diastolic Murmur Extremities: No: Cold, Cyanosis Edema: No Integumentary: No: Jaundice diaphoresis Neurological: Yes: Alert, Oriented (x3) Psychiatric: No: Agitated - Other Data Labs, Other Data: CBC, BMP 06/24/17 06:40 06/24/17 06:40 echo 03/2017: nl lv/rv, mild ar/mr mibi 03/2017: nl mpi, nl lvef CT chest: patchy consolidation JUAN LUIS c/w acute PNA; consolidation/ATX bilat bases with assctd small effusions; R lobe liver lesion requires further evaluation ECG: ectopic atrial rhythm; normal axis/intervals; no path q's; diffuse NSST-Ts = no change vs 04.19 a/p: PNA (JUAN LUIS): -CT findings as above -appears clinically euvolemic -on abx copd: -appears stable h/o acute diastolic chf likely secondary to hypertensive emergency (04/19): -sob and elevated bnp likely due to hypertensive emergency causing acute HFpEF -bun/creat [place] with brief lasix course so changed back to home dose lasix 20 po qd -wt climbed 153 to 162 on discharge then -bnp 500 (prior range 100-1K) -bedscale wt here 158. likely euvolemic. -cont home 20 po daily -recent echo and mibi unremarkable chronic LE edema/venous insuff: -home regimen lasix 20 po qd htn: -with hypertensive emergency 04/19 -treated with home regimen cozaar and hydralazine. (bystolic stopped 2/2 bradycardia, priro h/o worsened edema with ccb) -bp currently controlled, cont same meds cad s/p remote pci: -no recent angina or ischemia (03/20) -trop currently normal, no ekg changes -cont home regimen asa, statin, arb anemia: -baseline hgb 10s recently -currently dropped -w/u per pmd KENIA: -creat 1.2 on admit, back down after hydration. slight bump today after IV lasix. (already transitioned to po lasix 06/22). cardiac jeffers remains stable
[2017-06-24] MEDS ORDERED: PT OWN MED DRAWER 7, Y5N ONE ×2 (10:21→21:02)
--- NOTE | 2017-06-24 10:24 | PN ---
Progress Note (short form) - Note Progress Note: PULMONARY Seen ambulating, states breathing improving but not at baseline. Still with mild nonproductive cough. No fevers or chills. Last Vital Signs Temp Pulse Resp BP Pulse Ox 97.8 F 72 20 154/76 97 06/24/17 05:19 06/24/17 05:19 06/24/17 05:19 06/24/17 05:19 06/23/17 21:00 Gen: NAD at rest Heart: RRR Lung: scattered rhonchi Abd: soft, nontender Ext: no edema CBC, BMP 06/24/17 06:40 06/24/17 06:40 Active Medications Acetaminophen (Tylenol -) 650 mg PO Q4H PRN PRN Reason: FEVER OR PAIN Last Admin: 06/22/17 18:08 Dose: 650 mg Aclidinium [place] (Tudorza -) 1 puff IH BID [facility] Last Admin: 06/23/17 21:54 Dose: Not Given Albuterol Sulfate (Ventolin 0.083% Nebulizer Soln -) 1 amp NEB DAILY PRN PRN Reason: ASTHMA Alprazolam (Xanax -) 0.25 mg PO TID [facility] Last Admin: 06/24/17 06:32 Dose: Not Given Aspirin (Asa -) 81 mg PO DAILY [facility] Last Admin: 06/23/17 10:04 Dose: 81 mg Atorvastatin Calcium (Lipitor -) 40 mg PO HS [facility] Last Admin: 06/23/17 21:35 Dose: 40 mg Budesonide/Formoterol Fumarate (Symbicort 160/4.5mcg -) 2 puff IH BID [facility] Last Admin: 06/23/17 21:54 Dose: Not Given Cyanocobalamin (Vitamin B12 -) 1,000 mcg PO DAILY [facility] Last Admin: 06/23/17 10:05 Dose: 1,000 mcg Enoxaparin Sodium (Lovenox -) 30 mg SQ DAILY [facility] Last Admin: 06/23/17 10:03 Dose: 30 mg Escitalopram Oxalate (Lexapro -) 20 mg PO DAILY [facility] Last Admin: 06/23/17 10:04 Dose: 20 mg Furosemide (Lasix -) 20 mg PO DAILY [facility] Last Admin: 06/23/17 10:04 Dose: 20 mg Hydralazine HCl (Apresoline -) 75 mg PO TID [facility] Last Admin: 06/24/17 06:31 Dose: 75 mg Levofloxacin (Levaquin 500 Mg Premixed Ivpb -) 100 mls @ 100 mls/hr IVPB DAILY [facility] Last Admin: 06/23/17 10:02 Dose: 100 mls/hr Levothyroxine Sodium (Synthroid -) 100 mcg PO AM [facility] Last Admin: 06/24/17 06:32 Dose: 100 mcg Pantoprazole Sodium (Protonix -) 40 mg PO BID [facility] Last Admin: 06/23/17 21:35 Dose: 40 mg Polyethylene Glycol (Miralax (For Daily Use) -) 17 gm PO BID [facility] Last Admin: 06/23/17 21:37 Dose: 17 gm Potassium Chloride (K-Dur -) 10 meq PO DAILY [facility] Last Admin: 06/23/17 10:04 Dose: 10 meq Valsartan (Diovan -) 320 mg PO DAILY [facility] Last Admin: 06/23/17 10:04 Dose: 320 mg A/P Pneumonia COPD LV Diastolic Dysfunction CAD HTN Acute Kidney Injury improving - continue antibiotics - continue prednisone, can taper as outpt - inhaled bronchodilators - O2 as needed - DVT prophylaxis
[2017-06-24] MEDS: ACLIDINIUM BROMIDE 400 MCG/INH AERO.POWD IH SCH ×2 (10:32→21:27)
[2017-06-24] MEDS: BUDESONIDE/FORMETEROL FUMARATE 160/4.5 mcg INHALER IH SCH ×2 (10:33→21:27)
[2017-06-24] MEDS: ENOXAPARIN NA (PORCINE) 30 MG/0.3 ML DISP.SYRIN SQ SCH (10:34)
[2017-06-24] MEDS: POTASSIUM CHLORIDE TABS 10 MEQ TABLET.ER (FP) PO SCH (10:35)
[2017-06-24] MEDS: ESCITALOPRAM OXALATE 10 MG TABLET (FP) PO SCH (10:35)
[2017-06-24] MEDS: VALSARTAN 160 MG TABLET (UD) PO SCH (10:35)
[2017-06-24] MEDS: LEVOFLOXACIN 500 MG IVPB 100 ML IVPB SCH (10:35)
[2017-06-24] MEDS: ASPIRIN 81 MG CHEWABLE TABLETS PO SCH (10:36)
[2017-06-24] MEDS: CYANOCOBALAMIN 1,000 MCG TABLET (FP) PO SCH (10:36)
[2017-06-24] MEDS: methylPREDNISolone NA SUCC 40 MG/1 ML VIAL IVPB SCH (10:36)
[2017-06-24] MEDS: FUROSEMIDE 20 MG TABLET (FP) PO SCH (10:36)
[2017-06-24] MEDS: PANTOPRAZOLE 40 MG TABLET (FP) PO SCH ×2 (10:36→21:27)
[2017-06-24] MEDS: POLYETHYLENE GLYCOL 3350 119 GM BTL PO SCH ×2 (10:41→21:31)
[2017-06-24] MEDS: predniSONE 10 MG TABLET (UD) PO SCH (11:18)
[2017-06-24] MEDS: ATORVASTATIN CA 40 MG TABLET (FP) PO SCH (21:27)
[2017-06-25] MEDS: ALPRAZolam 0.25 MG TABLET PO SCH (06:44)
[2017-06-25] MEDS: LEVOTHYROXINE NA 100 MCG TABLET (FP) PO SCH (06:44)
[2017-06-25] MEDS: hydrALAZINE HCL 25 MG TABLET (FP) PO SCH ×3 (06:44→21:37)
[2017-06-25 07:55] LABS: BASOPHIL 0.4 % (0-2.0); EOSINOPHIL 0.4 % (0-4.5); MCH 23.3 pg (25.7-33.7); MEAN CELL VOLUME 72.8 fl (80-96); MEAN PLT VOLUME 8.3 fl (7.5-11.1); NEUTROPHILS 60.9 % (42.8-82.8); PLATELET COUNT 277 K/MM3 (134-434); RDW 20.3 % (11.6-15.6); WHITE BLOOD COUNT 8.6 K/mm3 (4.0-10.0)
[2017-06-25 08:53] LABS: ANION GAP 11 (8-16); CO2 23 mmol/L (21-32); CREATININE 1.1 mg/dL (0.55-1.02); GLUCOSE,RANDOM 79 mg/dL (74-106)
[2017-06-25] MEDS ORDERED: PT OWN MED DRAWER 7, Y5N ONE (09:21)
[2017-06-25] MEDS: ASPIRIN 81 MG CHEWABLE TABLETS PO SCH (09:37)
[2017-06-25] MEDS: LEVOFLOXACIN 500 MG IVPB 100 ML IVPB SCH (09:37)
[2017-06-25] MEDS: FUROSEMIDE 20 MG TABLET (FP) PO SCH (09:38)
[2017-06-25] MEDS: VALSARTAN 160 MG TABLET (UD) PO SCH (09:38)
[2017-06-25] MEDS: predniSONE 10 MG TABLET (UD) PO SCH (09:38)
[2017-06-25] MEDS: PANTOPRAZOLE 40 MG TABLET (FP) PO SCH (09:40)
[2017-06-25] MEDS: CYANOCOBALAMIN 1,000 MCG TABLET (FP) PO SCH (09:40)
[2017-06-25] MEDS: BUDESONIDE/FORMETEROL FUMARATE 160/4.5 mcg INHALER IH SCH ×2 (09:40→21:38)
[2017-06-25] MEDS: ACLIDINIUM BROMIDE 400 MCG/INH AERO.POWD IH SCH ×2 (09:40→21:38)
[2017-06-25] MEDS: ENOXAPARIN NA (PORCINE) 30 MG/0.3 ML DISP.SYRIN SQ SCH (09:41)
[2017-06-25] MEDS: POTASSIUM CHLORIDE TABS 10 MEQ TABLET.ER (FP) PO SCH (09:41)
[2017-06-25] MEDS: ESCITALOPRAM OXALATE 10 MG TABLET (FP) PO SCH (09:41)
[2017-06-25] MEDS: POLYETHYLENE GLYCOL 3350 119 GM BTL PO SCH ×2 (09:42→21:37)
--- NOTE | 2017-06-25 10:19 | PN ---
Progress Note (short form) - Note Progress Note: patient seen and examined this AM. Not feeling well anxious with high BP and coughing. Problem List - Problems (1) Pneumonia Code(s): J18.9 - PNEUMONIA, UNSPECIFIED ORGANISM Qualifiers: Pneumonia type: due to unspecified organism Laterality: bilateral Lung location: unspecified part of lung Qualified Code(s): J18.9 - Pneumonia, unspecified organism (2) Anxiety about health Code(s): F41.8 - OTHER SPECIFIED ANXIETY DISORDERS (3) Acute on chronic diastolic (congestive) heart failure Code(s): I50.33 - ACUTE ON CHRONIC DIASTOLIC (CONGESTIVE) HEART FAILURE (4) Hypertension Code(s): I10 - ESSENTIAL (PRIMARY) HYPERTENSION Qualifiers: Hypertension type: essential hypertension Qualified Code(s): I10 - Essential (primary) hypertension (5) Liver mass, right lobe Code(s): R16.0 - HEPATOMEGALY, NOT ELSEWHERE CLASSIFIED (6) Microcytic anemia Code(s): D50.9 - IRON DEFICIENCY ANEMIA, UNSPECIFIED
--- NOTE | 2017-06-25 11:07 | PN ---
Progress Note (short form) - Note Progress Note: S: sob improved, no cp, palps, dizziness. Current Medications Generic Name Dose Route Start Last Admin Trade Name Freq PRN Reason Stop Dose Admin Acetaminophen 650 mg 06/20/17 13:25 06/22/17 18:08 Tylenol - PO 650 mg Q4H PRN Administration FEVER OR PAIN Aclidinium [place] 1 puff 06/20/17 13:00 06/25/17 09:40 Tudorza - IH 1 puff BID HUNTER Administration Albuterol Sulfate 1 amp 06/23/17 12:23 Ventolin 0.083% Nebulizer Soln - NEB DAILY PRN ASTHMA Aspirin 81 mg 06/20/17 10:00 06/25/17 09:37 Asa - PO 81 mg DAILY HUNTER Administration Atorvastatin Calcium 40 mg 06/20/17 22:00 06/24/17 21:27 Lipitor - PO 40 mg HS HUNTER Administration Budesonide/Formoterol Fumarate 2 puff 06/20/17 13:00 06/25/17 09:40 Symbicort 160/4.5mcg - IH 2 puff BID HUNTER Administration Cyanocobalamin 1,000 mcg 06/20/17 10:00 06/25/17 09:40 Vitamin B12 - PO 1,000 mcg DAILY HUNTER Administration Enoxaparin Sodium 30 mg 06/20/17 10:00 06/25/17 09:41 Lovenox - SQ 30 mg DAILY HUNTER Administration Escitalopram Oxalate 20 mg 06/20/17 10:00 06/25/17 09:41 Lexapro - PO 20 mg DAILY HUNTER Administration Furosemide 20 mg 06/22/17 10:00 06/25/17 09:38 Lasix - PO 20 mg DAILY HUNTER Administration Hydralazine HCl 75 mg 06/20/17 06:00 06/25/17 06:44 Apresoline - PO 75 mg TID HUNTER Administration Levofloxacin 100 mls @ 100 mls/hr 06/23/17 10:00 06/25/17 09:37 Levaquin 500 Mg Premixed Ivpb - IVPB 100 mls/hr DAILY HUNTER Administration Levothyroxine Sodium 100 mcg 06/20/17 07:00 06/25/17 06:44 Synthroid - PO 100 mcg AM HUNTER Administration Melatonin 10 mg 06/25/17 22:00 Melatonin PO HS HUNTER Pantoprazole Sodium 40 mg 06/26/17 10:00 Protonix - PO DAILY HUNTER Polyethylene Glycol 17 gm 06/22/17 22:00 06/25/17 09:42 Miralax (For Daily Use) - PO 17 gm BID HUNTER Administration Potassium Chloride 10 meq 06/20/17 12:00 06/25/17 09:41 K-Dur - PO 10 meq DAILY HUNTER Administration Prednisone 30 mg 06/24/17 10:30 06/25/17 09:38 Deltasone - PO 30 mg DAILY HUNTER Administration Valsartan 320 mg 06/20/17 10:00 06/25/17 09:38 Diovan - PO 320 mg DAILY HUNTER Administration - Objective Vital Signs: Vital Signs Period Temp Pulse Resp BP Sys/Rios Pulse Ox Last 24 Hr 97.4 F-97.9 F 71-81 19-20 119-152/49-77 94 Constitutional: Yes: No Distress, Obese Eyes: No: Sclera Icterus HENT: No: Nasal Congestion Neck: No: Decreased ROM Respiratory: Yes: CTA Bilaterally. No: Accessory Muscle Use, Rales, Wheezes Gastrointestinal: Yes: Normal Bowel Sounds. No: Distention, Hepatomegaly, Palpable Mass, Tenderness Cardiovascular: Yes: Regular Rate and Rhythm JVD: No Heart Sounds: Yes: S1, S2. No: Gallop Murmur: No: Systolic Murmur, Diastolic Murmur Extremities: No: Cold, Cyanosis Edema: No Integumentary: No: Jaundice diaphoresis Neurological: Yes: Alert, Oriented (x3) Psychiatric: No: Agitated - Other Data Labs, Other Data: CBC, BMP 06/25/17 06:30 06/25/17 06:30 echo 03/2017: nl lv/rv, mild ar/mr mibi 03/2017: nl mpi, nl lvef CT chest: patchy consolidation JUAN LUIS c/w acute PNA; consolidation/ATX bilat bases with assctd small effusions; R lobe liver lesion requires further evaluation ECG: ectopic atrial rhythm; normal axis/intervals; no path q's; diffuse NSST-Ts = no change vs 04.19 a/p: PNA (JUAN LUIS): -CT findings as above -appears clinically euvolemic -on abx, symptomatically improving copd: -appears stable h/o acute diastolic chf likely secondary to hypertensive emergency (04/19): -sob and elevated bnp likely due to hypertensive emergency causing acute HFpEF -bun/creat [place] with brief lasix course so changed back to home dose lasix 20 po qd -wt climbed 153 to 162 on discharge then -bnp 500 (prior range 100-1K) -bedscale wt here 159. likely euvolemic. -cont home 20 po daily -recent echo and mibi unremarkable chronic LE edema/venous insuff: -continue home regimen lasix 20 po qd htn: -with hypertensive emergency 04/19 -treated with home regimen cozaar and hydralazine. (bystolic stopped 2/2 bradycardia, priro h/o worsened edema with ccb) -bp currently controlled, cont same meds cad s/p remote pci: -no recent angina or ischemia (03/20) -trop currently normal, no ekg changes -cont home regimen asa, statin, arb KENIA: -creat 1.2 on admit, back down after hydration. slight bump today after IV lasix. (already transitioned to po lasix 06/22). cardiac jeffers remains stable
--- NOTE | 2017-06-25 14:30 | PN ---
Progress Note (short form) - Note Progress Note: PULMONARY RESTING COMFORTABLY APPEARS STABLE VSS/AFEBRILE PALE/ANICTERIC SCATTERED MINIMAL LEFT SIDED RHONCHI S1S2 BS+ NO EDEMA LABS/MEDS/NOTES/IMAGING REVIEWED A/P Pneumonia COPD LV Diastolic Dysfunction CAD HTN Acute Kidney Injury improving - continue antibiotics - oral prednisone to taper - changed albuterol to prn - ICS/LABA/TUDORZA - O2 as needed - DVT prophylaxis Abundio HAGAN MD
--- NOTE | 2017-06-25 14:54 | PN ---
GI Progress Note Subjective: GI NOte: Denies heartburn or any form of reflux. AFP and CEA tumor markers are negative. Sonogram suggests that liver mass is a hemangioma but again advises a contrast study. Renal function is still subpar. We discussed the fact that Michaela's pneumonias are most likely a reflection of laryngeal reflux. We discussed the potential need to reconsider undergoing a Oralia fundoplication. - Objective Vital Signs: Vital Signs Temperature 98.2 F 06/25/17 12:00 Pulse Rate 85 06/25/17 12:00 Respiratory Rate 20 06/25/17 12:00 Blood Pressure 146/78 06/25/17 12:00 O2 Sat by Pulse Oximetry (%) 95 06/25/17 11:18 Laboratory Tests 06/21/17 06/22/17 06/22/17 08:00 06:00 06:00 Hgb BUN 30 H D Creatinine 1.2 H D Total Bilirubin 0.6 D AST 33 ALT 27 Alkaline Phosphatase 147 H Tumor Marker AFP 5.3 Carcinoembryonic Ag 2.0 06/25/17 06/25/17 06:30 06:30 Hgb 8.3 L BUN 33 H Creatinine 1.1 H Total Bilirubin AST ALT Alkaline Phosphatase Tumor Marker AFP Carcinoembryonic Ag Constitutional: No Distress ...Auscultate: Yes: Normoactive Bowel Sounds ...Palpate: Yes: Soft, Other (nontender) Labs: CBC, BMP 06/25/17 06:30 06/25/17 06:30 INR, PTT INR 1.11 (0.82-1.09) 06/19/17 19:50 Assessment/Plan I believe that her liver mass will prove to be a hemangioma but will need to confirm by rapid sequence contrast CT as she cannot tolerate an enclosed MRI. Will need to wait until renal function permits this. Encouraged ot drink more fluids. For this reason need to defer esophagram/ UGI to assess hiatal hernia size as the contrast will interfere with CT. Keep head of the bed elevated. If renal function fails to correct adequately may need to settle for waiting to do it at a later date as an outpatient or simply to follow for a change in size. Problem List - Problems (1) Constipation by delayed colonic transit Code(s): K59.01 - SLOW TRANSIT CONSTIPATION (2) Constipation due to outlet obstruction Code(s): K59.02 - OUTLET DYSFUNCTION CONSTIPATION (3) Diverticulosis large intestine w/o perforation or abscess w/o bleeding Code(s): K57.30 - DVRTCLOS OF LG INT W/O PERFORATION OR ABSCESS W/O BLEEDING
[2017-06-25] MEDS: ATORVASTATIN CA 40 MG TABLET (FP) PO SCH (21:37)
[2017-06-25] MEDS: MELATONIN 5 MG TABLETS PO SCH (21:37)
[2017-06-26] MEDS: LEVOTHYROXINE NA 100 MCG TABLET (FP) PO SCH (06:32)
[2017-06-26] MEDS: hydrALAZINE HCL 25 MG TABLET (FP) PO SCH ×3 (06:32→21:08)
[2017-06-26 08:01] LABS: BASOPHIL 0.4 % (0-2.0); EOSINOPHIL 0.4 % (0-4.5); MCHC 31.6 g/dl (32.0-36.0); MEAN CELL VOLUME 72.8 fl (80-96); MEAN PLT VOLUME 8.3 fl (7.5-11.1); NEUTROPHILS 62.9 % (42.8-82.8); PLATELET COUNT 365 K/MM3 (134-434); RDW 20.8 % (11.6-15.6); WHITE BLOOD COUNT 12.1 K/mm3 (4.0-10.0)
[2017-06-26 08:38] LABS: ANION GAP 7 (8-16); CALCIUM 9.4 mg/dL (8.5-10.1); CO2 26 mmol/L (21-32); CREATININE 1.1 mg/dL (0.55-1.02); GLUCOSE,RANDOM 75 mg/dL (74-106)
--- NOTE | 2017-06-26 09:01 | PN ---
Progress Note (short form) - Note Progress Note: PATIENT FEELS WELL. DENIES CP / SOB /.PALPITATIONS . SEEN BY GI / PROBABLE LIVER HEMANGIOMA BUT CT SCAN WITH I.V. CONTRAST NEEDED TO CONFIRM WHEN RENAL FX NORMALIZES. ON LEVAQUIN FOR JUAN LUIS PNEUMONIA / NO COUGH / NO PHLEGM. Selected Entries 06/26/17 06:00 Temperature 97.9 F Pulse Rate 75 Respiratory 18 Rate Blood Pressure 159/75 Laboratory Tests 06/22/17 06/26/17 06/26/17 06:00 07:00 07:00 WBC 12.1 H D RBC 4.32 D Hgb 9.9 L D Hct 31.5 L D Plt Count 365 D Sodium 140 Potassium 4.0 Chloride 107 Carbon Dioxide 26 Anion Gap 7 L BUN 34 H Creatinine 1.1 H Random Glucose 75 Calcium 9.4 Tumor Marker AFP 5.3 Carcinoembryonic Ag 2.0 P/E <> AWAKE / ALERT / NO DISTRESS HEENT <> NECK SUPPLE /NO CAROTID BRUITS COR <> S 1 S 2 NO M /NO G CHEST <> FEW SCATTERED RHONCHI AT BASES ABD <> SOFT / NONTENDER EXT <> NO EDEMA / NO CALF TENDERNESS. IMP : JUAN LUIS PNEUMONIA ACCELERATED HTN <> NOW CONTROLLED COPD SUSPECTED LIVER HEMANGIOMA CHF PLAN : CONTINUE AB PULM FOLLOWUP TAPER STEROIDS PER PULM. CT SCAN ABD WHEN RENAL FX IMPROVES. ( CR 1.1 TODAY )
[2017-06-26] MEDS ORDERED: PT OWN MED DRAWER 7, Y5N ONE ×2 (09:46→20:25)
[2017-06-26] MEDS: ENOXAPARIN NA (PORCINE) 30 MG/0.3 ML DISP.SYRIN SQ SCH (09:50)
[2017-06-26] MEDS: FUROSEMIDE 20 MG TABLET (FP) PO SCH (09:50)
[2017-06-26] MEDS: ASPIRIN 81 MG CHEWABLE TABLETS PO SCH (09:50)
[2017-06-26] MEDS: CYANOCOBALAMIN 1,000 MCG TABLET (FP) PO SCH (09:50)
[2017-06-26] MEDS: PANTOPRAZOLE 40 MG TABLET (FP) PO SCH (09:50)
[2017-06-26] MEDS: predniSONE 10 MG TABLET (UD) PO SCH (09:51)
[2017-06-26] MEDS: ACLIDINIUM BROMIDE 400 MCG/INH AERO.POWD IH SCH ×2 (09:51→21:15)
[2017-06-26] MEDS: ESCITALOPRAM OXALATE 10 MG TABLET (FP) PO SCH (09:51)
[2017-06-26] MEDS: BUDESONIDE/FORMETEROL FUMARATE 160/4.5 mcg INHALER IH SCH ×2 (09:51→21:15)
[2017-06-26] MEDS: POTASSIUM CHLORIDE TABS 10 MEQ TABLET.ER (FP) PO SCH (09:51)
[2017-06-26] MEDS: LEVOFLOXACIN 500 MG IVPB 100 ML IVPB SCH (09:51)
[2017-06-26] MEDS: POLYETHYLENE GLYCOL 3350 119 GM BTL PO SCH ×2 (09:52→21:09)
[2017-06-26] MEDS: VALSARTAN 160 MG TABLET (UD) PO SCH (11:16)
--- NOTE | 2017-06-26 11:46 | PN ---
Progress Note (short form) - Note Progress Note: PULMONARY States breathing improving but still not at baseline. + mild nonproductive cough. No fevers or chills. Last Vital Signs Temp Pulse Resp BP Pulse Ox 97.9 F 79 20 188/48 95 06/26/17 06:00 06/26/17 10:00 06/26/17 10:00 06/26/17 10:00 06/25/17 21:00 Gen: NAD at rest Heart: RRR Lung: scattered rhonchi Abd: soft, nontender Ext: no edema CBC, BMP 06/26/17 07:00 06/26/17 07:00 Active Medications Acetaminophen (Tylenol -) 650 mg PO Q4H PRN PRN Reason: FEVER OR PAIN Last Admin: 06/22/17 18:08 Dose: 650 mg Aclidinium [place] (Tudorza -) 1 puff IH BID [facility] Last Admin: 06/26/17 09:51 Dose: 1 puff Albuterol Sulfate (Ventolin 0.083% Nebulizer Soln -) 1 amp NEB DAILY PRN PRN Reason: ASTHMA Aspirin (Asa -) 81 mg PO DAILY [facility] Last Admin: 06/26/17 09:50 Dose: 81 mg Atorvastatin Calcium (Lipitor -) 40 mg PO HS [facility] Last Admin: 06/25/17 21:37 Dose: 40 mg Budesonide/Formoterol Fumarate (Symbicort 160/4.5mcg -) 2 puff IH BID [facility] Last Admin: 06/26/17 09:51 Dose: 2 puff Cyanocobalamin (Vitamin B12 -) 1,000 mcg PO DAILY [facility] Last Admin: 06/26/17 09:50 Dose: 1,000 mcg Enoxaparin Sodium (Lovenox -) 30 mg SQ DAILY [facility] Last Admin: 06/26/17 09:50 Dose: 30 mg Escitalopram Oxalate (Lexapro -) 20 mg PO DAILY [facility] Last Admin: 06/26/17 09:51 Dose: 20 mg Furosemide (Lasix -) 20 mg PO DAILY [facility] Last Admin: 06/26/17 09:50 Dose: 20 mg Hydralazine HCl (Apresoline -) 75 mg PO TID [facility] Last Admin: 06/26/17 06:32 Dose: 75 mg Levofloxacin (Levaquin 500 Mg Premixed Ivpb -) 100 mls @ 100 mls/hr IVPB DAILY [facility] Last Admin: 06/26/17 09:51 Dose: 100 mls/hr Levothyroxine Sodium (Synthroid -) 100 mcg PO AM [facility] Last Admin: 06/26/17 06:32 Dose: 100 mcg Melatonin (Melatonin) 10 mg PO HS [facility] Last Admin: 06/25/17 21:37 Dose: 10 mg Pantoprazole Sodium (Protonix -) 40 mg PO DAILY [facility] Last Admin: 06/26/17 09:50 Dose: 40 mg Polyethylene Glycol (Miralax (For Daily Use) -) 17 gm PO BID [facility] Last Admin: 06/26/17 09:52 Dose: 17 gm Potassium Chloride (K-Dur -) 10 meq PO DAILY [facility] Last Admin: 06/26/17 09:51 Dose: 10 meq Prednisone (Deltasone -) 30 mg PO DAILY [facility] Last Admin: 06/26/17 09:51 Dose: 30 mg Valsartan (Diovan -) 320 mg PO DAILY [facility] Last Admin: 06/26/17 11:16 Dose: Not Given A/P Pneumonia COPD LV Diastolic Dysfunction CAD HTN Acute Kidney Injury improving - complete antibiotics - prednisone taper - inhaled bronchodilators - O2 as needed - DVT prophylaxis
[2017-06-26] MEDS: ATORVASTATIN CA 40 MG TABLET (FP) PO SCH (21:08)
[2017-06-26] MEDS: MELATONIN 5 MG TABLETS PO SCH (21:08)
[2017-06-27] MEDS: LEVOTHYROXINE NA 100 MCG TABLET (FP) PO SCH (06:04)
[2017-06-27] MEDS: hydrALAZINE HCL 25 MG TABLET (FP) PO SCH ×3 (06:04→21:47)
--- NOTE | 2017-06-27 08:00 | PN ---
Progress Note (short form) - Note Progress Note: PATIENT EATING BREAKFAST . SHE FEELS WELL WITH NO CP / SOB /.PALPITATIONS / ABDOMINAL PAIN . 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 GI REQUESTS CT SCAN WITH I.V. CONTRAST. RENAL FX IMPROVING. BMP TODAY. NO COUGH / NO PHLEGM / NO WHEEZING . REMAINS ON LEVAQUIN & PREDNISONE FOR JUAN LUIS PNEUMONIA. PULMONARY FOLLOWUP APPRECIATED. Selected Entries Selected Entries 06/27/17 05:30 Temperature 97.9 F Pulse Rate 86 Respiratory 20 Rate Blood Pressure 153/57 Laboratory Tests 06/22/17 06/26/17 06/26/17 06:00 07:00 07:00 WBC 12.1 H D RBC 4.32 D Hgb 9.9 L D Hct 31.5 L D Plt Count 365 D Sodium 140 Potassium 4.0 Chloride 107 Carbon Dioxide 26 Anion Gap 7 L BUN 34 H Creatinine 1.1 H Random Glucose 75 Calcium 9.4 Tumor Marker AFP 5.3 Carcinoembryonic Ag 2.0 P/E <> AWAKE / COMFORTABLE / NO RESPIRATORY DISTRESS HEENT <> NECK SUPPLE /NO CAROTID BRUITS COR <> S 1 S 2 NO M /NO G CHEST <> RHONCHI AT BASES ABD <> SOFT / NONTENDER / NO REBOUND / NO GUARDING . EXT <> NO EDEMA / NO CALF TENDERNESS. IMP : JUAN LUIS PNEUMONIA HY OF ACCELERATED HTN ON ADMISSION. COPD SUSPECTED LIVER HEMANGIOMA CHF PLAN : CONTINUE LEVAQUIN & PREDNISONE. PULM FOLLOWUP FOR STEROID TAPER. BMP ORDERED TO MONITOR RENAL FX. GI FOLLOWUP . CT SCAN FOR LIVER HEMANGIOMA CONFIRMATION.
[2017-06-27 09:11] LABS: ANION GAP 10 (8-16); CALCIUM 9.5 mg/dL (8.5-10.1); CO2 25 mmol/L (21-32); CREATININE 1.3 mg/dL (0.55-1.02); GLUCOSE,RANDOM 122 mg/dL (74-106)
[2017-06-27] MEDS ORDERED: PT OWN MED DRAWER 7, Y5N ONE ×2 (09:37→20:52)
[2017-06-27] MEDS: POLYETHYLENE GLYCOL 3350 119 GM BTL PO SCH ×2 (09:49→21:48)
[2017-06-27] MEDS: BUDESONIDE/FORMETEROL FUMARATE 160/4.5 mcg INHALER IH SCH ×2 (09:53→21:48)
[2017-06-27] MEDS: ACLIDINIUM BROMIDE 400 MCG/INH AERO.POWD IH SCH ×2 (09:53→21:48)
[2017-06-27] MEDS: CYANOCOBALAMIN 1,000 MCG TABLET (FP) PO SCH (09:54)
[2017-06-27] MEDS: FUROSEMIDE 20 MG TABLET (FP) PO SCH (09:54)
[2017-06-27] MEDS: ENOXAPARIN NA (PORCINE) 30 MG/0.3 ML DISP.SYRIN SQ SCH (09:54)
[2017-06-27] MEDS: VALSARTAN 160 MG TABLET (UD) PO SCH (09:54)
[2017-06-27] MEDS: LEVOFLOXACIN 500 MG IVPB 100 ML IVPB SCH (09:54)
[2017-06-27] MEDS: ESCITALOPRAM OXALATE 10 MG TABLET (FP) PO SCH (09:55)
[2017-06-27] MEDS: predniSONE 10 MG TABLET (UD) PO SCH (09:55)
[2017-06-27] MEDS: PANTOPRAZOLE 40 MG TABLET (FP) PO SCH (09:55)
[2017-06-27] MEDS: ASPIRIN 81 MG CHEWABLE TABLETS PO SCH (09:55)
[2017-06-27] MEDS: POTASSIUM CHLORIDE TABS 10 MEQ TABLET.ER (FP) PO SCH (09:55)
[2017-06-27] MEDS ORDERED: predniSONE 20 MG TABLET (UD) PO SCH (11:18)
--- NOTE | 2017-06-27 11:18 | PN ---
Progress Note (short form) - Note Progress Note: PULMONARY Breathing continues to improve. + mild nonproductive cough. No fevers or chills. Last Vital Signs Temp Pulse Resp BP Pulse Ox 97.9 F 86 20 153/57 97 06/27/17 05:30 06/27/17 05:30 06/27/17 05:30 06/27/17 05:30 06/26/17 19:55 Gen: NAD at rest Heart: RRR Lung: rare rhonchi Abd: soft, nontender Ext: no edema CBC, BMP 06/26/17 07:00 06/27/17 08:30 Active Medications Acetaminophen (Tylenol -) 650 mg PO Q4H PRN PRN Reason: FEVER OR PAIN Last Admin: 06/22/17 18:08 Dose: 650 mg Aclidinium [place] (Tudorza -) 1 puff IH BID [facility] Last Admin: 06/27/17 09:53 Dose: 1 puff Albuterol Sulfate (Ventolin 0.083% Nebulizer Soln -) 1 amp NEB DAILY PRN PRN Reason: ASTHMA Aspirin (Asa -) 81 mg PO DAILY [facility] Last Admin: 06/27/17 09:55 Dose: 81 mg Atorvastatin Calcium (Lipitor -) 40 mg PO HS [facility] Last Admin: 06/26/17 21:08 Dose: 40 mg Budesonide/Formoterol Fumarate (Symbicort 160/4.5mcg -) 2 puff IH BID [facility] Last Admin: 06/27/17 09:53 Dose: 2 puff Cyanocobalamin (Vitamin B12 -) 1,000 mcg PO DAILY [facility] Last Admin: 06/27/17 09:54 Dose: 1,000 mcg Enoxaparin Sodium (Lovenox -) 30 mg SQ DAILY [facility] Last Admin: 06/27/17 09:54 Dose: 30 mg Escitalopram Oxalate (Lexapro -) 20 mg PO DAILY [facility] Last Admin: 06/27/17 09:55 Dose: 20 mg Furosemide (Lasix -) 20 mg PO DAILY [facility] Last Admin: 06/27/17 09:54 Dose: 20 mg Hydralazine HCl (Apresoline -) 75 mg PO TID [facility] Last Admin: 06/27/17 06:04 Dose: 75 mg Levofloxacin (Levaquin 500 Mg Premixed Ivpb -) 100 mls @ 100 mls/hr IVPB DAILY [facility] Last Admin: 06/27/17 09:54 Dose: 100 mls/hr Levothyroxine Sodium (Synthroid -) 100 mcg PO AM [facility] Last Admin: 06/27/17 06:04 Dose: 100 mcg Melatonin (Melatonin) 10 mg PO HS [facility] Last Admin: 06/26/17 21:08 Dose: 10 mg Pantoprazole Sodium (Protonix -) 40 mg PO DAILY [facility] Last Admin: 06/27/17 09:55 Dose: 40 mg Polyethylene Glycol (Miralax (For Daily Use) -) 17 gm PO BID [facility] Last Admin: 06/27/17 09:49 Dose: 17 gm Potassium Chloride (K-Dur -) 10 meq PO DAILY [facility] Last Admin: 06/27/17 09:55 Dose: 10 meq Prednisone (Deltasone -) 30 mg PO DAILY [facility] Last Admin: 06/27/17 09:55 Dose: 30 mg Valsartan (Diovan -) 320 mg PO DAILY [facility] Last Admin: 06/27/17 09:54 Dose: 320 mg A/P Pneumonia COPD LV Diastolic Dysfunction CAD HTN Acute Kidney Injury improving - complete antibiotics - prednisone taper, will decrease to 20mg daily - inhaled bronchodilators - O2 as needed - DVT prophylaxis
[2017-06-27] MEDS: MELATONIN 5 MG TABLETS PO SCH (21:48)
[2017-06-27] MEDS: ATORVASTATIN CA 40 MG TABLET (FP) PO SCH (21:48)
[2017-06-28] MEDS: hydrALAZINE HCL 25 MG TABLET (FP) PO SCH ×2 (06:04→13:54)
[2017-06-28] MEDS: LEVOTHYROXINE NA 100 MCG TABLET (FP) PO SCH (06:04)
[2017-06-28] MEDS ORDERED: PT OWN MED DRAWER 7, Y5N ONE (09:10)
[2017-06-28 09:23] VITALS: TEMP 98
[2017-06-28] MEDS: POTASSIUM CHLORIDE TABS 10 MEQ TABLET.ER (FP) PO SCH (09:23)
[2017-06-28] MEDS: ESCITALOPRAM OXALATE 10 MG TABLET (FP) PO SCH (09:23)
[2017-06-28] MEDS: FUROSEMIDE 20 MG TABLET (FP) PO SCH (09:23)
[2017-06-28] MEDS: CYANOCOBALAMIN 1,000 MCG TABLET (FP) PO SCH (09:24)
[2017-06-28] MEDS: VALSARTAN 160 MG TABLET (UD) PO SCH (09:24)
[2017-06-28] MEDS: ACLIDINIUM BROMIDE 400 MCG/INH AERO.POWD IH SCH (09:24)
[2017-06-28] MEDS: ENOXAPARIN NA (PORCINE) 30 MG/0.3 ML DISP.SYRIN SQ SCH (09:24)
[2017-06-28] MEDS: BUDESONIDE/FORMETEROL FUMARATE 160/4.5 mcg INHALER IH SCH (09:24)
[2017-06-28] MEDS: PANTOPRAZOLE 40 MG TABLET (FP) PO SCH (09:24)
[2017-06-28] MEDS: ASPIRIN 81 MG CHEWABLE TABLETS PO SCH (09:24)
[2017-06-28] MEDS: POLYETHYLENE GLYCOL 3350 119 GM BTL PO SCH (09:24)
[2017-06-28] MEDS: LEVOFLOXACIN 500 MG IVPB 100 ML IVPB SCH (09:25)
--- NOTE | 2017-06-28 10:07 | PN ---
Progress Note (short form) - Note Progress Note: Patient seen and examined today. Problem List - Problems (1) Pneumonia Code(s): J18.9 - PNEUMONIA, UNSPECIFIED ORGANISM Qualifiers: Qualified Code(s): J18.9 - Pneumonia, unspecified organism (2) Anxiety about health Code(s): F41.8 - OTHER SPECIFIED ANXIETY DISORDERS (3) Acute on chronic diastolic (congestive) heart failure Code(s): I50.33 - ACUTE ON CHRONIC DIASTOLIC (CONGESTIVE) HEART FAILURE (4) Hypertension Code(s): I10 - ESSENTIAL (PRIMARY) HYPERTENSION Qualifiers: Qualified Code(s): I10 - Essential (primary) hypertension (5) Liver mass, right lobe Code(s): R16.0 - HEPATOMEGALY, NOT ELSEWHERE CLASSIFIED (6) Microcytic anemia Code(s): D50.9 - IRON DEFICIENCY ANEMIA, UNSPECIFIED
--- NOTE | 2017-06-28 11:56 | PN ---
Progress Note (short form) - Note Progress Note: Ambulating the hallway with a walker. Feels overall better. No CP or SOB. Some residual dry cough. Intake & Output 06/25/17 06/26/17 06/27/17 06/28/17 23:59 23:59 23:59 23:59 Intake Total 550 1100 550 Balance 550 1100 550 Weight 159 lb 160 lb 1.6 oz 161 lb 160 lb 14.4 oz Last Vital Signs Temp Pulse Resp BP Pulse Ox 98 F 86 18 124/42 93 L 06/28/17 09:23 06/28/17 10:40 06/28/17 09:23 06/28/17 09:23 06/28/17 10:40 Active Medications Acetaminophen (Tylenol -) 650 mg PO Q4H PRN PRN Reason: FEVER OR PAIN Last Admin: 06/22/17 18:08 Dose: 650 mg Aclidinium [place] (Tudorza -) 1 puff IH BID [facility] Last Admin: 06/28/17 09:24 Dose: 1 puff Albuterol Sulfate (Ventolin 0.083% Nebulizer Soln -) 1 amp NEB DAILY PRN PRN Reason: ASTHMA Aspirin (Asa -) 81 mg PO DAILY [facility] Last Admin: 06/28/17 09:24 Dose: 81 mg Atorvastatin Calcium (Lipitor -) 40 mg PO HS [facility] Last Admin: 06/27/17 21:48 Dose: 40 mg Budesonide/Formoterol Fumarate (Symbicort 160/4.5mcg -) 2 puff IH BID [facility] Last Admin: 06/28/17 09:24 Dose: 2 puff Cyanocobalamin (Vitamin B12 -) 1,000 mcg PO DAILY [facility] Last Admin: 06/28/17 09:24 Dose: 1,000 mcg Enoxaparin Sodium (Lovenox -) 30 mg SQ DAILY [facility] Last Admin: 06/28/17 09:24 Dose: 30 mg Escitalopram Oxalate (Lexapro -) 20 mg PO DAILY [facility] Last Admin: 06/28/17 09:23 Dose: 20 mg Furosemide (Lasix -) 20 mg PO DAILY [facility] Last Admin: 06/28/17 09:23 Dose: 20 mg Hydralazine HCl (Apresoline -) 75 mg PO TID [facility] Last Admin: 06/28/17 06:04 Dose: 75 mg Levothyroxine Sodium (Synthroid -) 100 mcg PO AM [facility] Last Admin: 06/28/17 06:04 Dose: 100 mcg Melatonin (Melatonin) 10 mg PO HS [facility] Last Admin: 06/27/17 21:48 Dose: 10 mg Pantoprazole Sodium (Protonix -) 40 mg PO DAILY [facility] Last Admin: 06/28/17 09:24 Dose: 40 mg Polyethylene Glycol (Miralax (For Daily Use) -) 17 gm PO BID [facility] Last Admin: 06/28/17 09:24 Dose: 17 gm Potassium Chloride (K-Dur -) 10 meq PO DAILY [facility] Last Admin: 06/28/17 09:23 Dose: 10 meq Prednisone (Deltasone -) 20 mg PO DAILY [facility] Last Admin: 06/28/17 09:24 Dose: 20 mg Valsartan (Diovan -) 320 mg PO DAILY [facility] Last Admin: 06/28/17 09:24 Dose: 320 mg Gen: NAD at rest Heart: RRR Lung: few scattered rhonchi Abd: soft, nontender Ext: no edema A/P Pneumonia (? Chronic micro-aspiration) COPD LV Diastolic Dysfunction CAD HTN Acute Kidney Injury improving - Completed ABX course - prednisone taper - inhaled bronchodilators - O2 as needed - DVT prophylaxis - D/C planning Dr Garcia Problem List - Problems (1) Anxiety about health Code(s): F41.8 - OTHER SPECIFIED ANXIETY DISORDERS (2) Hypothyroid Code(s): E03.9 - HYPOTHYROIDISM, UNSPECIFIED Qualifiers: Qualified Code(s): E03.9 - Hypothyroidism, unspecified (3) Pneumonia Code(s): J18.9 - PNEUMONIA, UNSPECIFIED ORGANISM Qualifiers: Qualified Code(s): J18.9 - Pneumonia, unspecified organism (4) Shortness of breath Code(s): R06.02 - SHORTNESS OF BREATH (5) Colon adenoma Code(s): D12.6 - BENIGN NEOPLASM OF COLON, UNSPECIFIED (6) Constipation Code(s): K59.00 - CONSTIPATION, UNSPECIFIED (7) Coronary artery disease Code(s): I25.10 - ATHSCL HEART DISEASE OF [place] CORONARY ARTERY W/O ANG PCTRS Qualifiers: Qualified Code(s): I25.10 - Atherosclerotic heart disease of [place] coronary artery without angina pectoris (8) Diverticula of intestine Code(s): K57.30 - DVRTCLOS OF LG INT W/O PERFORATION OR ABSCESS W/O BLEEDING (9) Dyspnea Code(s): R06.00 - DYSPNEA, UNSPECIFIED Qualifiers: Qualified Code(s): R06.09 - Other forms of dyspnea (10) Edema Code(s): R60.9 - EDEMA, UNSPECIFIED Qualifiers: Qualified Code(s): R60.0 - Localized edema (11) Emphysema of lung Code(s): J43.9 - EMPHYSEMA, UNSPECIFIED Qualifiers: Qualified Code(s): J43.9 - Emphysema, unspecified (12) H/O heart artery stent Code(s): Z95.5 - PRESENCE OF CORONARY ANGIOPLASTY IMPLANT AND GRAFT (13) Hyperlipidemia Code(s): E78.5 - HYPERLIPIDEMIA, UNSPECIFIED (14) Hypertension Code(s): I10 - ESSENTIAL (PRIMARY) HYPERTENSION Qualifiers: Qualified Code(s): I10 - Essential (primary) hypertension (15) Left ventricular diastolic dysfunction Code(s): I51.9 - HEART DISEASE, UNSPECIFIED (16) Obesity (BMI 30.0-34.9) Code(s): E66.9 - OBESITY, UNSPECIFIED (17) Reflux esophagitis Code(s): K21.0 - GASTRO-ESOPHAGEAL REFLUX DISEASE WITH ESOPHAGITIS
[2017-06-28 14:01] VITALS: BP 126/55; PULSE 79
--- NOTE | 2017-06-28 20:16 | DS ---
Physical Examination Vital Signs: Vital Signs Temperature 98 F 06/28/17 13:59 Pulse Rate 79 06/28/17 13:59 Respiratory Rate 18 06/28/17 13:59 Blood Pressure 126/55 06/28/17 13:59 O2 Sat by Pulse Oximetry (%) 91 L 06/28/17 12:04 Constitutional: Yes: Anxious Neck: Yes: Supple Cardiovascular: Yes: Regular Rate and Rhythm Respiratory: Yes: Diminished. No: Rales, Wheezes Gastrointestinal: Yes: Soft Edema: No Neurological: Yes: Alert, Oriented Labs: CBC, BMP 06/26/17 07:00 06/27/17 08:30 Discharge Summary Reason For Visit: PNEUMONIA Current Active Problems Anxiety about health (Acute) Congestive cardiac failure (Acute) Hypertensive emergency (Acute) Hypertensive urgency (Acute) Hypothyroid (Acute) Shortness of breath (Acute) pneumonia(acute) Liver mass( acute) Acute renal failure Procedures: Principal: followup lab x-rays and testing of liver mass were done. Other Procedures: patient came to the hospital with increasing shortness of breath and was found to have pneumonia and acute exacerbation of COPD. IV steroids and IV antibiotics were instituted. Hospital Course: patient was also seen by pulmonary DrJan and when a liver mass was discovered on CAT scan of the chest, Keila NGUYEN was called. Followup test revealed a possible hemangioma or of the liver. Because of anemia patient was to have further testing but with renal lab still elevated CAT scan will have to wait to be done as an outpatient. she will followup in office and lab will be repeated. Pneumonia has cleared on IV medication and her breathing is more comfortable. She did not qualify for home O2 because her O2 sat even after exercise was always over 90. Condition: Stable - Instructions Diet, Activity, Other Instructions: Low salt diet. Ambulate as much is possible. Followup Dr. Claire within [address] Garcia Followup Dr. Davidson Followup Dr. Mercedes regarding upper GI series. Referrals: Darell Claire MD [Staff Physician] - Ney Garcia MD [Staff Physician] - Disposition: VNS/HOME HEALTH CARE - Home Medications Comprehensive Discharge Medication List: Ambulatory Orders Aspirin [ASA -] 81 mg PO DAILY 04/19/17 Atorvastatin Ca [Lipitor] 40 mg PO HS 04/19/17 Cyanocobalamin (Vitamin B-12) [Vitamin B-12] 1,000 mcg PO DAILY 04/19/17 Escitalopram Oxalate [Lexapro -] 20 mg PO DAILY 04/19/17 Fluticasone Furoate [Flonase Sensimist] 9.9 ml NS DAILY 04/19/17 Levothyroxine [Synthroid -] 100 mcg PO DAILY 04/19/17 Mag Carb/Al Hydrox/Alginic AC [Gaviscon Liquid] 15 - 30 ml PO Q6H 04/19/17 Mometasone/Formoterol [Dulera 100 Mcg/5 Mcg Inhaler] 2 inh IH BID 04/19/17 Potassium Chloride [Klor-Con 8] 8 meq PO DAILY 04/19/17 Albuterol 0.083% Nebulizer [place] [Ventolin 0.083% Nebulizer Soln -] 1 amp NEB Q6H PRN #30 amp 04/28/17 Valsartan [Diovan] 320 mg PO DAILY #60 tablet 04/28/17 Fluticasone/Vilanterol [Breo Ellipta 100-25 Mcg INH] 1 each IH DAILY 06/19/17 Hydralazine HCl [Apresoline -] 75 mg PO TID 06/19/17 Omeprazole 40 mg PO BID 06/19/17 Prednisone [Deltasone -] 10 mg PO DAILY 06/19/17 Umeclidinium [place] [Incruse Ellipta] 62.5 mcg IH DAILY 06/19/17 Acetaminophen [Tylenol .Regular Strength -] 650 mg PO Q4H PRN #0 tablet Furosemide [Lasix -] 20 mg PO DAILY tablet 06/28/17 Melatonin 10 mg PO HS tab 06/28/17 Polyethylene Glycol 3350 [Miralax 119 gm Btl -] 17 gm PO BID bottle 06/28/17
== END 2017-06-28 16:33 | disposition home health service (06) | DRG 190 ==
LOC: JER 18:37 → JERBED 23:08 → J6S 06-20 00:21
PROVIDERS: ADMIT Internal Medicine; ATTEND Internal Medicine
DX: J44.0 Chronic obstructive pulmonary disease with (acute) lower respiratory infection (principal); J18.9 Pneumonia, unspecified organism; I50.33 Acute on chronic diastolic (congestive) heart failure; N17.9 Acute kidney failure, unspecified; I16.1 Hypertensive emergency; J44.1 Chronic obstructive pulmonary disease with (acute) exacerbation; I25.10 Atherosclerotic heart disease of native coronary artery without angina pectoris; E03.9 Hypothyroidism, unspecified; Z98.61 Coronary angioplasty status; F41.9 Anxiety disorder, unspecified; E66.9 Obesity, unspecified; K21.0 Gastro-esophageal reflux disease with esophagitis; K76.9 Liver disease, unspecified; I87.2 Venous insufficiency (chronic) (peripheral); D50.9 Iron deficiency anemia, unspecified; I11.0 Hypertensive heart disease with heart failure; R16.0 Hepatomegaly, not elsewhere classified; D18.09 Hemangioma of other sites; K59.01 Slow transit constipation; Z68.32 Body mass index [BMI] 32.0-32.9, adult
CPT/HCPCS: 36415; 71010-TC; 71250-TC; 76700-TC; 80048; 80053; 81003; 82105; 82272; 82378; 82607; 82728; 82746; 83540; 83735; 83880; 84100; 84484; 85025; 85027; 85610; 87040; 87899; 93005; 93010; 94010; 94640; 94761; 97116-GP; 97161-GP; 99284-25

== ENCOUNTER 2017-07-05 13:12 | Inpatient (IN) | payer OTHER, BC ==
[2017-07-05 13:35] VITALS: BMI 31.1
[2017-07-05] MEDS ORDERED: VANCOMYCIN 1,750 MG in DEXTROSE 5%-WATER - 250 ML IVPB ONE (13:39)
[2017-07-05] MEDS ORDERED: LEVOFLOXACIN 750 MG IVPB 150 ML IVPB ONE (13:39)
[2017-07-05] MEDS ORDERED: PIPERACILLIN/TAZOB 4.5 GM/100 ML PRE-DOCKED IVPB ONE (13:39)
[2017-07-05] MEDS ORDERED: SODIUM CHLORIDE 500 ML IV STA (13:42)
--- NOTE | 2017-07-05 13:54 | PDOC ---
History of Present Illness - General Chief Complaint: Shortness of Breath Stated Complaint: DIFFICULTY BREATHING Time Seen by Provider: 07/05/17 13:22 History Source: Patient Exam Limitations: No Limitations - History of Present Illness Initial Comments: 07/05/17 13:46 Patient is an 81F with history of CAD s/p stenting in 2008, CHF, kidney stones, cholecystectomy, and thyroidectomy here today complaining of shortness of breath , cough, fever and chills for the past two days. She was recently admitted for pneumonia on 06/19 to 06/26, where she was treated with IV levaquin. She says that she recently stopped taking her lasix because they made her urinate too much. She denies chest pain, abdominal pain, leg swelling, and leg pain. She denies having a blood clot in the past. She has not received a flu shot this year. Past History - Past Medical History Allergies/Adverse Reactions: Allergies Allergy/AdvReac Type Severity Reaction Status Date / Time codeine [Codeine] Allergy Verified 07/05/17 14:24 meperidine HCl [From Demerol] Allergy Verified 07/05/17 14:24 Home Medications: Ambulatory Orders Aspirin [ASA -] 81 mg PO DAILY 04/19/17 Atorvastatin Ca [Lipitor] 40 mg PO HS 04/19/17 Cyanocobalamin (Vitamin B-12) [Vitamin B-12] 1,000 mcg PO DAILY 04/19/17 Escitalopram Oxalate [Lexapro -] 20 mg PO DAILY 04/19/17 Fluticasone Furoate [Flonase Sensimist] 9.9 ml NS DAILY 04/19/17 Levothyroxine [Synthroid -] 100 mcg PO DAILY 04/19/17 Mag Carb/Al Hydrox/Alginic AC [Gaviscon Liquid] 15 - 30 ml PO Q6H 04/19/17 Mometasone/Formoterol [Dulera 100 Mcg/5 Mcg Inhaler] 2 inh IH BID 04/19/17 Potassium Chloride [Klor-Con 8] 8 meq PO DAILY 04/19/17 Albuterol 0.083% Nebulizer [place] [Ventolin 0.083% Nebulizer Soln -] 1 amp NEB Q6H PRN #30 amp 04/28/17 Valsartan [Diovan] 320 mg PO DAILY #60 tablet 04/28/17 Fluticasone/Vilanterol [Breo Ellipta 100-25 Mcg INH] 1 each IH DAILY 06/19/17 Hydralazine HCl [Apresoline -] 75 mg PO TID 06/19/17 Omeprazole 40 mg PO BID 06/19/17 Prednisone [Deltasone -] 10 mg PO DAILY 06/19/17 Umeclidinium [place] [Incruse Ellipta] 62.5 mcg IH DAILY 06/19/17 Acetaminophen [Tylenol .Regular Strength -] 650 mg PO Q4H PRN #0 tablet Furosemide [Lasix -] 20 mg PO DAILY tablet 06/28/17 Melatonin 10 mg PO HS tab 06/28/17 Polyethylene Glycol 3350 [Miralax 119 gm Btl -] 17 gm PO BID bottle 06/28/17 Hydralazine HCl [Apresoline -] 50 mg PO TID #120 tablet 06/29/17 Anemia: No Asthma: No Cancer: No Cardiac Disorders: (CARDIAC STENTS) CVA: No COPD: Yes CHF: Yes Dementia: No Diabetes: No GI Disorders: Yes (ACID REFLUX) Disorders: No HTN: Yes Hypercholesterolemia: Yes Liver Disease: No Seizures: No Thyroid Disease: Yes (thyroidectomy) - Surgical History Abdominal Surgery: No Appendectomy: No Cardiac Surgery: Yes (2 CARDIAC [id number]) Cholecystectomy: Yes Lung Surgery: No Neurologic Surgery: No Orthopedic Surgery: Yes (RIGHT KNEE ARTHROSCOPY) - Suicide/Smoking/Psychosocial Hx Smoking History: Never smoked Have you smoked in the past 12 months: No Number of Cigarettes Smoked Daily: 0 Hx Alcohol Use: No Drug/Substance Use Hx: No Substance Use Type: None Hx Substance Use Treatment: No Review of Systems - Review of Systems Comments:: 07/05/17 13:54 GENERAL/CONSTITUTIONAL: Positive for fevers, chills and weakness. HEAD, EYES, EARS, NOSE AND THROAT: No change in vision. No sore throat. CARDIOVASCULAR: No chest pain. Positive for shortness of breath. RESPIRATORY: Positive for cough. Negative for wheezing, or hemoptysis. GASTROINTESTINAL: No nausea, vomiting, diarrhea or constipation. GENITOURINARY: No dysuria, frequency, or change in urination. MUSCULOSKELETAL: No joint or muscle swelling or pain. No neck or back pain. SKIN: No rash NEUROLOGIC: No headache, vertigo, loss of consciousness, or change in strength/ sensation. ENDOCRINE: No increased thirst. No abnormal weight change HEMATOLOGIC/LYMPHATIC: No anemia, easy bleeding, or history of blood clots. ALLERGIC/IMMUNOLOGIC: No hives or skin allergy. *Physical Exam - Vital Signs Last Vital Signs Temp Pulse Resp BP Pulse Ox 100.2 F H 89 22 137/55 100 07/05/17 13:30 07/05/17 13:30 07/05/17 13:30 07/05/17 13:30 07/05/17 13:39 - Physical Exam Comments: 07/05/17 13:54 GENERAL: Awake, alert, and fully oriented, in moderate respiratory distress HEAD: No signs of trauma, normocephalic, atraumatic EYES: PERRLA, EOMI, sclera anicteric, conjunctiva clear ENT: Auricles normal inspection, hearing grossly normal, nares patent, oropharynx clear without exudates. Moist mucosa NECK: Normal ROM, supple, no lymphadenopathy, JVD, or masses LUNGS: Moderate respiratory distress, tachypneic in the mid 20s, decreased breath sounds on right side HEART: Regular rate and rhythm, normal S1 and S2, no murmurs, rubs or gallops, peripheral pulses normal and equal bilaterally. ABDOMEN: Soft, nontender, normoactive bowel sounds. No guarding, no rebound. No masses EXTREMITIES: Normal inspection, Normal range of motion, no edema. No clubbing or cyanosis. NEUROLOGICAL: Cranial nerves II through XII grossly intact. Normal speech, no focal sensorimotor deficits SKIN: Warm, Dry, normal turgor, no rashes or lesions noted. ED Treatment Course - LABORATORY CBC & Chemistry Diagram: 07/05/17 14:00 07/05/17 14:00 - RADIOLOGY Radiology Studies Ordered: Category Date Time Status CHEST X-RAY PORTABLE* [RAD] Stat Radiology 07/05/17 13:38 Ordered Medical Decision Making - Medical Decision Making 07/05/17 13:56 Patient is an 81F recently admitted for pneumonia here today complaining of shortness of breath. Tachypneic and febrile to 100.5. Satting 100% on non- rebreather. Vital signs otherwise stable. Exam consistent with pneumonia. Will do septic workup and treat for hospital acquired pneumonia. Will start treatment for vanc and zosyn. Holding levaquin due to QTc prolongation. EKG shows normal sinus rhythm with some irregularity due to PACs. No ST elevation, no t-wave abnormalities seen. 07/05/17 14:14 CXR shows moderate worsening from 06/19, infiltrate vs pulmonary vascular congestion. 07/05/17 14:39 Laboratory Tests 07/05/17 07/05/17 07/05/17 14:00 14:00 14:00 WBC 18.4 H D Hgb 9.0 L Hct 28.9 L Plt Count 324 VBG pH 7.45 H POC VBG pCO2 35.7 L B-Natriuretic Peptide 1278.30 H CBC shows leukocytosis. VBG reassuring. BNP elevated to 1.2k, will continue holding fluids due to possible heart failure component. 07/05/17 18:[address] Shelby *DC/Admit/Observation/Transfer Diagnosis at time of Disposition: Pneumonia Qualifiers: Pneumonia type: due to unspecified organism Laterality: unspecified laterality Lung location: unspecified part of lung Qualified Code(s): J18.9 - Pneumonia, unspecified organism - Discharge Dispostion Condition at time of disposition: Stable Admit: Yes - Referrals
[2017-07-05] MEDS ORDERED: PIPERACILLIN/TAZOB 4.5 GM 100 ML IVPB ONE (13:58)
[2017-07-05] MEDS ORDERED: VANCOMYCIN 1,750 MG in DEXTROSE 5%-WATER - 500 ML IVPB ONE (14:00)
[2017-07-05 14:16] LABS: BASOPHIL 0.5 % (0-2.0); EOSINOPHIL 0.3 % (0-4.5); MCH 22.7 pg (25.7-33.7); MCHC 30.9 g/dl (32.0-36.0); MEAN CELL VOLUME 73.5 fl (80-96); MEAN PLT VOLUME 8.1 fl (7.5-11.1); NEUTROPHILS 78.7 % (42.8-82.8); PLATELET COUNT 324 K/MM3 (134-434); RDW 19.7 % (11.6-15.6); WHITE BLOOD COUNT 18.4 K/mm3 (4.0-10.0)
[2017-07-05 14:20] LABS: VENOUS BLOOD GAS HCO3 24.6 meq/L (19-25); VENOUS PH 7.45 (7.32-7.42)
[2017-07-05 14:31] LABS: ALBUMIN 2.8 g/dl (3.4-5.0); ANION GAP 11 (8-16); BILIRUBIN,TOTAL 0.6 mg/dL (0.2-1.0); CALCIUM 9.1 mg/dL (8.5-10.1); CO2 24 mmol/L (21-32); GLUCOSE,RANDOM 91 mg/dL (74-106); SGOT/AST 35 U/L (15-37); SGPT/ALT 31 U/L (12-78); TOT PROT 5.7 g/dl (6.4-8.2)
[2017-07-05 14:33] LABS: ALK PHOS 139 U/L (45-117); CPK 77 IU/L (26-192); TROPONIN I 0.02 ng/ml (0.00-0.05)
--- NOTE | 2017-07-05 14:36 | PDOC ---
Attending Attestation - Resident Resident Name: Darell Juan - ED Attending Attestation I have performed the following: I have examined & evaluated the patient, The case was reviewed & discussed with the resident, I agree w/resident's findings & plan, Exceptions are as noted - Medical Decision Making 07/05/17 14:14 A portion of this note was written by my scribe, under my supervision. Vital Signs Temp Pulse Resp BP Pulse Ox 100.2 F H 89 22 137/55 100 07/05/17 13:30 07/05/17 13:30 07/05/17 13:30 07/05/17 13:30 07/05/17 13:39 81 year old female wit past medical history of coronary disease, congestive heart failure, hypertension, chronic lung disease presents to the ED for shortness of breath. Patient was recently admitted for pneumonia. However in the last several days she's been complaining of shortness of breath, fevers and cough. We'll need to rule out pneumonia. Labs, adult sepsis workup. Given a short of breath, we'll also send a troponin rule out ACS. Admission to the hospital. <Zelalem Shaw - Last Filed: 07/05/17 14:13> - HPI HPI: 07/05/17 14:41 The patient is an 81 year old female with history of hypertension, CAD, CHF, lung disease, recent admission for pneumonia, here today complaining of several days of shortness of breath, fever, cough. - Physicial Exam PE: 07/05/17 14:44 GENERAL: Awake, alert, and fully oriented, in no acute distress HEAD: No signs of trauma EYES: PERRLA, EOMI, sclera anicteric, conjunctiva clear ENT: Auricles normal inspection, hearing grossly normal, nares patent, oropharynx clear without exudates. Moist mucosa NECK: Normal ROM, supple, no lymphadenopathy, JVD, or masses LUNGS: Decreased breath sounds on the right side. No wheezes, and no crackles HEART: Regular rate and rhythm, normal S1 and S2, no murmurs, rubs or gallops ABDOMEN: Soft, nontender, normoactive bowel sounds. No guarding, no rebound. No masses EXTREMITIES: Normal range of motion, no edema. No clubbing or cyanosis. No cords, erythema, or tenderness NEUROLOGICAL: Cranial nerves II through XII grossly intact. Normal speech, normal gait SKIN: Warm, Dry, normal turgor, no rashes or lesions noted. - Medical Decision Making 07/05/17 14:44 Documentation prepared by Leydi Arias, acting as medical claims assistant for Zelalem Shaw MD. <Leydi Arias - Last Filed: 07/05/17 14:45> Heart Score/ECG Review #1 ECG reviewed & interpreted by me at: 13:45 07/05/17 14:13 NSR 77, no std/jessica, normal axis, TWI III, QTC 497 msec <Zelalem Shaw - Last Filed: 07/05/17 14:13>
[2017-07-05 14:44] LABS: INR 1.21 (0.82-1.09); PROTHROMBIN TIME (PATIENT) 13.4 SEC (9.98-11.88)
[2017-07-05 14:46] LABS: ACTIVATED PTT 28.5 SECONDS (26.9-34.4)
[2017-07-05] MEDS ORDERED: traMADol HCL 50 MG TABLET PO ONE (14:49)
[2017-07-05] MEDS ORDERED: ACETAMINOPHEN 325 MG TABLET (FP) PO ONE ×2 (14:49→14:51)
[2017-07-05] MEDS ORDERED: ACETAMINOPHEN 325 MG TABLET (FP) ONE (14:59)
[2017-07-05 15:23] LABS: URINE APPEARANCE TURBID; URINE BILIRUBIN NEGATIVE (NEGATIVE); URINE BLOOD 1+ (NEGATIVE); URINE COLOR AMBER; URINE GLUCOSE (UA) NEGATIVE (NEGATIVE); URINE KETONE NEGATIVE (NEGATIVE); URINE NITRITE NEGATIVE (NEGATIVE); URINE UROBILINOGEN NEGATIVE mg/dL (0.2-1.0)
[2017-07-05 15:25] LABS: URINE LEUK ESTERASE 3+ (NEGATIVE); URINE PROTEIN 2+ (NEGATIVE)
[2017-07-05 15:27] LABS: URINE MUCUS FEW; URINE RBC 162 /hpf (0-3); URINE WBC 2935 /hpf (3-5)
[2017-07-05 15:45] LABS: ANISOCYTOSIS 1+; HYPOCHROMIA 1+; MACROCYTOSIS FEW; MICROCYTOSIS 1+; POLYCHROMASIA 1+; TARGET CELLS 1+
[2017-07-05 15:46] LABS: OVALOCYTE 1+; TEAR DROP CELLS 1+
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
[2017-07-05] MEDS ORDERED: FLU VACCINE QUAD 60 MCG/0.5 ML (MDV 17-18) IM ONE (17:02)
[2017-07-05] MEDS: ACETAMINOPHEN 325 MG TABLET (FP) PO PRN (19:41)
[2017-07-05] MEDS ORDERED: PT OWN MED DRAWER 7, Y5N ONE (21:41)
[2017-07-05] MEDS: PANTOPRAZOLE 40 MG TABLET (FP) PO SCH (21:50)
[2017-07-05] MEDS: ATORVASTATIN CA 40 MG TABLET (FP) PO SCH (21:50)
[2017-07-05] MEDS: hydrALAZINE HCL 50 MG TABLET (FP) PO SCH (21:50)
[2017-07-05] MEDS: HEPARIN NA (PORCINE) 5,000 UNITS/ML 1ML VIAL SQ SCH (21:51)
[2017-07-05] MEDS: POLYETHYLENE GLYCOL 3350 119 GM BTL PO SCH (21:51)
[2017-07-05] MEDS: MELATONIN 5 MG TABLETS PO SCH (21:55)
[2017-07-05] MEDS ORDERED: PATIENT'S OWN MEDICATION (NON-FORMULARY) (Mometasone/Formoterol [Dulera 100 Mcg/5 Mcg Inha IH SCH (22:00)
[2017-07-05] MEDS: ACLIDINIUM BROMIDE 400 MCG/INH AERO.POWD IH SCH (22:41)
[2017-07-05] MEDS: BUDESONIDE/FORMETEROL FUMARATE 160/4.5 mcg INHALER IH SCH (22:41)
[2017-07-06] MEDS: HEPARIN NA (PORCINE) 5,000 UNITS/ML 1ML VIAL SQ SCH ×3 (03:26→22:11)
[2017-07-06] MEDS: hydrALAZINE HCL 50 MG TABLET (FP) PO SCH ×2 (05:22→14:40)
[2017-07-06] MEDS: LEVOTHYROXINE NA 100 MCG TABLET (FP) PO SCH (05:22)
[2017-07-06 06:58] LABS: MCHC 31.3 g/dl (32.0-36.0); MEAN CELL VOLUME 73.6 fl (80-96); MEAN PLT VOLUME 8.1 fl (7.5-11.1); PLATELET COUNT 294 K/MM3 (134-434); RDW 19.7 % (11.6-15.6); WHITE BLOOD COUNT 27.5 K/mm3 (4.0-10.0)
[2017-07-06 07:02] LABS: ANION GAP 8 (8-16); CALCIUM 8.4 mg/dL (8.5-10.1); CO2 24 mmol/L (21-32); CREATININE 1.2 mg/dL (0.55-1.02); GLUCOSE,RANDOM 98 mg/dL (74-106); MAGNESIUM 1.8 mg/dL (1.8-2.4); PHOSPHOROUS 2.5 mg/dL (2.5-4.9)
[2017-07-06] MEDS: ACETAMINOPHEN 325 MG TABLET (FP) PO PRN ×2 (07:54→15:21)
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
[2017-07-06] MEDS ORDERED: PT OWN MED DRAWER 7, Y5N ONE ×3 (09:17→22:03)
[2017-07-06] MEDS: CYANOCOBALAMIN 1,000 MCG TABLET (FP) PO SCH (09:25)
[2017-07-06] MEDS: ASPIRIN 81 MG CHEWABLE TABLETS PO SCH (09:26)
[2017-07-06] MEDS: PANTOPRAZOLE 40 MG TABLET (FP) PO SCH ×2 (09:26→22:11)
[2017-07-06] MEDS: ESCITALOPRAM OXALATE 20 MG TABLET (FP) PO SCH (09:26)
[2017-07-06] MEDS: BUDESONIDE/FORMETEROL FUMARATE 160/4.5 mcg INHALER IH SCH ×2 (09:27→22:12)
[2017-07-06] MEDS: ACLIDINIUM BROMIDE 400 MCG/INH AERO.POWD IH SCH ×2 (09:27→22:12)
--- NOTE | 2017-07-06 09:40 | EKG ---
Test Reason : Blood Pressure : / mmHG Vent. Rate : 077 BPM Atrial Rate : 077 BPM P-R Int : 100 ms QRS Dur : 080 ms QT Int : 440 ms P-R-T Axes : 000 015 021 degrees QTc Int : 497 ms CANNOT RULE OUT ECTOPIC ATRIAL RHYTHM WITH PREMATURE ATRIAL COMPLEXES NONSPECIFIC ST AND T WAVE ABNORMALITY PROLONGED QT ABNORMAL ECG WHEN COMPARED WITH ECG OF 19-JUN-2017 20:08, PREMATURE ATRIAL COMPLEXES ARE NOW PRESENT ND INTERVAL HAS DECREASED VENT. RATE HAS INCREASED P WAVES ARE INVERTED Confirmed by CARINA FARLEY MD ([id number]) on 07/06/2017 9:40:16 AM Referred By: Confirmed By:CARINA FARLEY MD
[2017-07-06] MEDS ORDERED: PATIENT'S OWN MEDICATION (NON-FORMULARY) (Umeclidinium Bromide [Incruse Ellipta] 62.5 MCG) IH SCH (10:00)
[2017-07-06] MEDS ORDERED: FLUTICASONE FUROATE NS SCH (10:00)
[2017-07-06] MEDS ORDERED: PIPERACILLIN/TAZOB 4.5 GM/100 ML PRE-DOCKED IVPB SCH (10:00)
[2017-07-06] MEDS ORDERED: VANCOMYCIN 1 GRAM (PRE-DOCKED) 1,000 MG/250 ML BAG IVPB SCH (10:00)
[2017-07-06] MEDS ORDERED: VALSARTAN 160 MG TABLET (UD) PO SCH (10:00)
[2017-07-06] MEDS: POLYETHYLENE GLYCOL 3350 119 GM BTL PO SCH ×2 (10:45→22:11)
--- NOTE | 2017-07-06 11:08 | PN ---
Teaching Attending Note Name of Resident: Alfredo Lutz ATTENDING PHYSICIAN STATEMENT I saw and evaluated the patient. I reviewed the resident's note and discussed the case with the resident. I agree with the resident's findings and plan as documented. SUBJECTIVE: just discharged one week ago received one week of po levaquin reports persistent sob and cough after discharge polyuria despite stopping lasix at home chills came to ED found to have fever no diarrhea OBJECTIVE: Vital Signs Period Temp Pulse Resp BP Sys/Rios Pulse Ox Last 24 Hr 97.3 F-101.4 F 20-89 20-23 92-171/41-74 85-100 cor-rrr lungs bibasilar crackles abd soft,nt ext no edema no suprapubic or CVAT CBC, BMP 07/06/17 06:15 07/06/17 06:15 Laboratory Tests 07/05/17 15:05 Urine RBC 162 Urine WBC 2935 Current Medications Acetaminophen (Tylenol -) 650 mg PO Q4H PRN PRN Reason: FEVER OR PAIN Last Admin: 07/06/17 07:54 Dose: 650 mg Aclidinium [place] (Tudorza -) 1 puff IH BID [facility] Last Admin: 07/06/17 09:27 Dose: 1 puff Albuterol Sulfate (Ventolin 0.083% Nebulizer Soln -) 1 amp NEB Q6H PRN PRN Reason: SHORT OF BREATH/WHEEZING Aspirin (Asa -) 81 mg PO DAILY [facility] Last Admin: 07/06/17 09:26 Dose: 81 mg Atorvastatin Calcium (Lipitor -) 40 mg PO HS [facility] Last Admin: 07/05/17 21:50 Dose: 40 mg Budesonide/Formoterol Fumarate (Symbicort 160/4.5mcg -) 2 puff IH BID [facility] Last Admin: 07/06/17 09:27 Dose: 2 puff Cyanocobalamin (Vitamin B12 -) 1,000 mcg PO DAILY [facility] Last Admin: 07/06/17 09:25 Dose: 1,000 mcg Escitalopram Oxalate (Lexapro -) 20 mg PO DAILY [facility] Last Admin: 07/06/17 09:26 Dose: 20 mg Heparin Sodium (Porcine) (Heparin -) 5,000 unit SQ Q8H-IV [facility] Last Admin: 07/06/17 09:26 Dose: 5,000 unit Hydralazine HCl (Apresoline -) 75 mg PO TID [facility] Last Admin: 07/06/17 05:22 Dose: 75 mg Sodium Chloride (Normal Saline -) 1,000 mls @ 50 mls/hr IV ASDIR [facility] Stop: 07/06/17 16:00 Ipratropium [place] (Atrovent 0.02% Nebulizer -) 1 amp NEB Q6H PRN PRN Reason: DYSPEPSIA Stop: 07/12/17 20:37 Levothyroxine Sodium (Synthroid -) 100 mcg PO DAILY@0700 [facility] Last Admin: 07/06/17 05:22 Dose: 100 mcg Melatonin (Melatonin) 10 mg PO HS [facility] Last Admin: 07/05/17 21:55 Dose: 10 mg Non-Formulary Medication (Fluticasone Furoate [Flonase Sensimist]) 9.9 ml NS DAILY [facility] Non-Formulary Medication (Mag Carb/Al Hydrox/Alginic Ac [Gaviscon Liquid]) 30 ml PO Q6H [facility] Pantoprazole Sodium (Protonix -) 40 mg PO BID [facility] Last Admin: 07/06/17 09:26 Dose: 40 mg Piperacillin Sod/Tazobactam Sod (Zosyn 4.5gm Ivpb (Pre-Docked)) 4.5 gm IVPB Q8H -IV [facility] Polyethylene Glycol (Miralax (For Daily Use) -) 17 gm PO BID [facility] Last Admin: 07/05/17 21:51 Dose: 17 grams Valsartan (Diovan -) 320 mg PO DAILY [facility] Last Admin: 07/06/17 09:26 Dose: 320 mg Vancomycin HCl (Vancomycin (Pre-Docked)) 1,000 mg IVPB BID [facility] PRN Reason: Protocol cxray- increased basilar infiltrates ASSESSMENT AND PLAN: HAP UTI cultures continue vanco/zosyn legionella urinary antigen vanco trough in am Problem List - Problems (1) HCAP (healthcare-associated pneumonia) Code(s): J18.9 - PNEUMONIA, UNSPECIFIED ORGANISM (2) UTI (urinary tract infection) Code(s): N39.0 - URINARY TRACT INFECTION, SITE NOT SPECIFIED
[2017-07-06] MEDS: ALBUTEROL SO4 0.083% IH SOL 2.5 MG/3 ML VIAL.NEB. NEB PRN ×2 (11:15→22:20)
[2017-07-06] MEDS: IPRATROPIUM BR 0.02% 0.5 MG/2.5 ML VIAL.NEB. NEB PRN (11:15)
[2017-07-06 11:19] LABS: TOTAL CELLS COUNTED 100
[2017-07-06 11:20] LABS: PLATELET ESTIMATE ADEQUATE (NORMAL)
[2017-07-06] MEDS ORDERED: VANCOMYCIN 1,000 MG in DEXTROSE 5%-WATER - 250 ML IVPB SCH (12:00)
--- NOTE | 2017-07-06 12:16 | CONSULT ---
Consultation: PULMONARY CONSULT CONSULT REQUEST: We have been asked to medically evaluate this patient for ( PNEUMONIA, COPD) HISTORY OF PRESENT ILLNESS: Ms. Dorantes is an 81yo F with PMHx of recurrent PNA due to microaspiration from GERD w/ laryngeal reflux, COPD, diastolic CHF who presented with two days of [employer] cough, SOB with associated fevers and chills. As per chart, pt was recently admitted for PNA from 06/19 --> 06/26, treated w/ IV antibiotics. Since hospitalization, the patients symptoms gradually persisted. Of note pt discontinued her lasix due to recent increase in urinary freq and dysuria. In the ER, patient was septic with Tmax 100.2, WBC 18.4. She was in respiratory distress with RR in 20s. She had decreased breath sounds on exam, and her UA was positive. She was started on Vanc/Zosyn. OTHER PMHx: GERD, COPD, CAD (s/p stents), Diastolic CHF (w/ preserved EF and poor LV compliance as of 2015), Mitral regurg (s/p valvuloplasty), Kidney stones , Cholecystectomy, Thyroidectomy REVIEW OF SYSTEMS: CONSTITUTIONAL: Absent: fever, chills, diaphoresis, generalized weakness, malaise, loss of appetite, weight change HEENT: Absent: rhinorrhea, nasal congestion, throat pain, throat swelling, difficulty swallowing, mouth swelling, ear pain, eye pain, visual changes CARDIOVASCULAR: Absent: chest pain, syncope, palpitations, irregular heart rate, lightheadedness , peripheral edema RESPIRATORY: Absent: dyspnea with exertion, orthopnea, wheezing, stridor, hemoptysis Present: cough, shortness of breath GASTROINTESTINAL: Absent: abdominal pain, abdominal distension, nausea, vomiting, diarrhea, constipation, melena, hematochezia GENITOURINARY: Absent: dysuria, frequency, urgency, hesitancy, hematuria, flank pain, genital pain MUSCULOSKELETAL: Absent: myalgia, arthralgia, joint swelling, back pain, neck pain SKIN: Absent: rash, itching, pallor HEMATOLOGIC/IMMUNOLOGIC: Absent: easy bleeding, easy bruising, lymphadenopathy, frequent infections ENDOCRINE: Absent: unexplained weight gain, unexplained weight loss, heat intolerance, cold intolerance NEUROLOGIC: Absent: headache, focal weakness or paresthesias, dizziness, unsteady gait, seizure, mental status changes, bladder or bowel incontinence PSYCHIATRIC: Absent: anxiety, depression, suicidal or homicidal ideation, hallucinations. PHYSICAL EXAMINATION Vital Signs Temperature 98.9 F 07/06/17 09:00 Pulse Rate 90 07/06/17 09:00 Respiratory Rate 20 07/06/17 09:00 Blood Pressure 101/50 07/06/17 09:00 O2 Sat by Pulse Oximetry (%) 95 07/06/17 09:00 GEN: AAOx3, NAD, Lying in bed, visibly still short of breath, better with rest HEENT: PERRLA, EOMi, No cervical LAD CV: S1, S2, RRR LUNG: Decreased air intake, crackles in lower lung bases bilaterally ABD: Soft, NT, ND, normoactive BS MSK: No edema, no erythema NEURO: CN 2-12 intact, no sensation deficits, no MSK deficits Laboratory Last Values WBC 27.5 K/mm3 (4.0-10.0) H D 07/06/17 06:15 RBC 3.81 M/mm3 (3.60-5.2) 07/06/17 06:15 Hgb 8.8 GM/dL (10.7-15.3) L 07/06/17 06:15 Hct 28.1 % (32.4-45.2) L 07/06/17 06:15 MCV 73.6 fl (80-96) L 07/06/17 06:15 MCH 23.0 pg (25.7-33.7) L 07/06/17 06:15 MCHC 31.3 g/dl (32.0-36.0) L 07/06/17 06:15 RDW 19.7 % (11.6-15.6) H 07/06/17 06:15 Plt Count 294 K/MM3 (134-434) 07/06/17 06:15 MPV 8.1 fl (7.5-11.1) 07/06/17 06:15 Total Counted 100 07/06/17 06:15 Neutrophils % No Result Required. 07/06/17 06:15 Neutrophils % (Manual) 84 % (42.8-82.8) H 07/06/17 06:15 Lymphocytes % No Result Required. 07/06/17 06:15 Lymphocytes % (Manual) 12 % (8-40) 07/06/17 06:15 Monocytes % 10.6 % (3.8-10.2) H 07/05/17 14:00 Monocytes % (Manual) 4 % (3.8-10.2) 07/06/17 06:15 Eosinophils % 0.3 % (0-4.5) 07/05/17 14:00 Basophils % 0.5 % (0-2.0) 07/05/17 14:00 Hypochromia 1+ 07/05/17 14:00 Platelet Estimate Adequate (NORMAL) 07/06/17 06:15 Polychromasia 1+ 07/05/17 14:00 Anisocytosis 1+ 07/05/17 14:00 Microcytosis 1+ 07/05/17 14:00 Macrocytosis Few 07/05/17 14:00 Target Cells 1+ 07/05/17 14:00 Tear Drop Cells 1+ 07/05/17 14:00 Ovalocytes 1+ 07/05/17 14:00 Fragmented RBCs 1+ 07/05/17 14:00 PT with INR 13.40 SEC (9.98-11.88) H 07/05/17 14:00 INR 1.21 (0.82-1.09) H 07/05/17 14:00 PTT (Actin FS) 28.5 SECONDS (26.9-34.4) 07/05/17 14:00 VBG pH 7.45 (7.32-7.42) H 07/05/17 14:00 POC VBG pCO2 35.7 mmHg (38-52) L 07/05/17 14:00 POC VBG pO2 33.3 mmHg (28-48) 07/05/17 14:00 Mixed VBG HCO3 24.6 meq/L (19-25) 07/05/17 14:00 Sodium 138 mmol/L (136-145) 07/06/17 06:15 Potassium 3.4 mmol/L (3.5-5.1) L 07/06/17 06:15 Chloride 106 mmol/L (98-107) 07/06/17 06:15 Carbon Dioxide 24 mmol/L (21-32) 07/06/17 06:15 Anion Gap 8 (8-16) 07/06/17 06:15 BUN 29 mg/dL (7-18) H 07/06/17 06:15 Creatinine 1.2 mg/dL (0.55-1.02) H 07/06/17 06:15 Creat Clearance w eGFR 52.95 (>60) 07/05/17 14:00 Random Glucose 98 mg/dL (74-106) 07/06/17 06:15 Lactic Acid 1.1 mmol/L (0.4-2.0) 07/05/17 14:00 Calcium 8.4 mg/dL (8.5-10.1) L 07/06/17 06:15 Phosphorus 2.5 mg/dL (2.5-4.9) 07/06/17 06:15 Magnesium 1.8 mg/dL (1.8-2.4) 07/06/17 06:15 Total Bilirubin 0.6 mg/dL (0.2-1.0) 07/05/17 14:00 AST 35 U/L (15-37) 07/05/17 14:00 ALT 31 U/L (12-78) 07/05/17 14:00 Alkaline Phosphatase 139 U/L (45-117) H 07/05/17 14:00 Creatine Kinase 77 IU/L (26-192) 07/05/17 14:00 Troponin I 0.02 ng/ml (0.00-0.05) 07/05/17 14:00 B-Natriuretic Peptide 1278.30 pg/ml (5-450) H 07/05/17 14:00 Total Protein 5.7 g/dl (6.4-8.2) L 07/05/17 14:00 Albumin 2.8 g/dl (3.4-5.0) L 07/05/17 14:00 Urine Color Keri 07/05/17 15:05 Urine Appearance Turbid 07/05/17 15:05 Urine pH 5.0 (5.0-8.0) 07/05/17 15:05 Ur Specific [place] 1.020 (1.005-1.025) 07/05/17 15:05 Urine Protein 2+ (NEGATIVE) H 07/05/17 15:05 Urine Glucose (UA) Negative (NEGATIVE) 07/05/17 15:05 Urine Ketones Negative (NEGATIVE) 07/05/17 15:05 Urine Blood 1+ (NEGATIVE) H 07/05/17 15:05 Urine Nitrite Negative (NEGATIVE) 07/05/17 15:05 Urine Bilirubin Negative (NEGATIVE) 07/05/17 15:05 Urine Urobilinogen Negative mg/dL (0.2-1.0) 07/05/17 15:05 Urine RBC 162 /hpf (0-3) 07/05/17 15:05 Urine WBC 2935 /hpf (3-5) 07/05/17 15:05 Urine Mucus Few 07/05/17 15:05 Blood Type A POSITIVE 07/05/17 14:00 Antibody Screen Negative 07/05/17 14:00 Active Medications Generic Name Dose Route Start Last Admin Trade Name Freq PRN Reason Stop Dose Admin Acetaminophen 650 mg 07/05/17 15:58 07/06/17 07:54 Tylenol - PO 650 mg Q4H PRN Administration FEVER OR PAIN Aclidinium [place] 1 puff 07/05/17 22:00 07/06/17 09:27 Tudorza - IH 1 puff BID HUNTER Administration Albuterol Sulfate 1 amp 07/05/17 20:36 Ventolin 0.083% Nebulizer Soln - NEB Q6H PRN SHORT OF BREATH/WHEEZING Aspirin 81 mg 07/06/17 10:00 07/06/17 09:26 Asa - PO 81 mg DAILY HUNTER Administration Atorvastatin Calcium 40 mg 07/05/17 22:00 07/05/17 21:50 Lipitor - PO 40 mg HS HUNTER Administration Budesonide/Formoterol Fumarate 2 puff 07/05/17 22:00 07/06/17 09:27 Symbicort 160/4.5mcg - IH 2 puff BID HUNTER Administration Cyanocobalamin 1,000 mcg 07/06/17 10:00 07/06/17 09:25 Vitamin B12 - PO 1,000 mcg DAILY [facility]TER Administration Escitalopram Oxalate 20 mg 07/06/17 10:00 07/06/17 09:26 Lexapro - PO 20 mg DAILY [facility]UNTER Administration Heparin Sodium (Porcine) 5,000 unit 07/05/17 18:00 07/06/17 09:26 Heparin - SQ 5,000 unit Q8H-IV [facility]TER Administration Hydralazine HCl 75 mg 07/05/17 22:00 07/06/17 05:22 Apresoline - PO 75 mg TID [facility]UNTER Administration Sodium Chloride 1,000 mls @ 50 mls/hr 07/05/17 16:00 Normal Saline - IV 07/06/17 16:00 ASDIR HUNTER Piperacillin Sod/Tazobactam 100 mls @ 200 mls/hr 07/06/17 11:15 Sod 4.5 gm/ Dextrose IVPB Q8H-IV [facility]TER Vancomycin HCl 1,000 mg/ 250 mls @ 166.667 mls/hr 07/06/17 12:00 Dextrose IVPB Q12H [facility] Ipratropium [place] 1 amp 07/05/17 20:36 Atrovent 0.02% Nebulizer - NEB 07/12/17 20:37 Q6H PRN DYSPEPSIA Levothyroxine Sodium 100 mcg 07/06/17 07:00 07/06/17 05:22 Synthroid - PO 100 mcg DAILY@0700 [facility] Administration Melatonin 10 mg 07/05/17 22:00 07/05/17 21:55 Melatonin PO 10 mg HS HUNTER Administration Non-Formulary Medication 9.9 ml 07/06/17 10:00 Fluticasone Furoate [Flonase Sensimist] NS DAILY [facility]TER Non-Formulary Medication 30 ml 07/05/17 16:00 Mag Carb/Al Hydrox/Alginic Ac [Gaviscon Liquid] PO Q6H [facility] Pantoprazole Sodium 40 mg 07/05/17 22:00 07/06/17 09:26 Protonix - PO 40 mg BID [facility]TER Administration Polyethylene Glycol 17 gm 07/05/17 22:00 07/05/17 21:51 Miralax (For Daily Use) - PO 17 grams BID [facility]UNTER Administration Valsartan 320 mg 07/06/17 10:00 07/06/17 09:26 Diovan - PO 320 mg DAILY [facility]TER Administration ASSESSMENT/PLAN: Ms. Dorantes is an 81yo F with PMHx of recurrent PNA due to microaspiration from GERD w/ laryngeal reflux, recently admitted for PNA who presented with two days of [employer] cough, SOB, and new onset dysuria/frequency. She is admitted for sepsis 2/ 2 UTI and HAP # Sepsis - 2/2 HAP vs UTI - Continue antibiotics as per ID - F/u Blood cultures, Urine cultures - F/u Urine antigen - Flu swab negative - Renal ultrasound shows no hydro, no renal abnormalities # COPD - not in exacerbation - Can continue home LAMA, ICS/LABA - YARELIS/MARGARET PRN # Diastolic CHF - Monitor fluid status closely - Hold Lasix for now due to sepsis - On gentle hydration, watch BUN/Cr - Strict I&Os, daily weights Rest as per Primary. Will discuss w/ Dr Goodrich. Will continue to follow. Jeff Anglin MD - PGY1 Internal Medicine Visit type - Emergency Visit Emergency Visit: No - New Patient This patient is new to me today: Yes Date on this admission: 07/06/17 - Critical Care Critical Care patient: No
[2017-07-06] MEDS ORDERED: PIPERACILLIN/TAZOBACTAM 4.5 GM VIAL IVPB ONE ×2 (12:29→17:07)
[2017-07-06] MEDS ORDERED: DEXTROSE 5%-WATER 100 ML IVPB ONE ×2 (12:30→17:07)
[2017-07-06] MEDS: PIPERACILLIN/TAZOB 4.5 GM 4.5 GM in DEXTROSE 5%-WATER 100 ML IVPB SCH ×2 (12:37→17:19)
--- NOTE | 2017-07-06 15:02 | PN ---
Progress Note, Physician Chief Complaint: coughing,SOB and weakness. History of Present Illness: Patient unable to improve at home after being in the hospital on her last admission for pneumonia and possible CHF. Also troubled by possible UTI. C/S was done as outpt. but final result not available. She has been progressively SOB with temps and dysuria. Had VNS at home. - Current Medication List Current Medications: Active Medications Acetaminophen (Tylenol -) 650 mg PO Q4H PRN PRN Reason: FEVER OR PAIN Last Admin: 07/06/17 07:54 Dose: 650 mg Aclidinium [place] (Tudorza -) 1 puff IH BID [facility]UNTER Last Admin: 07/06/17 09:27 Dose: 1 puff Albuterol Sulfate (Ventolin 0.083% Nebulizer Soln -) 1 amp NEB Q6H PRN PRN Reason: SHORT OF BREATH/WHEEZING Last Admin: 07/06/17 11:15 Dose: 1 amp Aspirin (Asa -) 81 mg PO DAILY [facility] Last Admin: 07/06/17 09:26 Dose: 81 mg Atorvastatin Calcium (Lipitor -) 40 mg PO HS [facility] Last Admin: 07/05/17 21:50 Dose: 40 mg Budesonide/Formoterol Fumarate (Symbicort 160/4.5mcg -) 2 puff IH BID [facility] Last Admin: 07/06/17 09:27 Dose: 2 puff Cyanocobalamin (Vitamin B12 -) 1,000 mcg PO DAILY [facility] Last Admin: 07/06/17 09:25 Dose: 1,000 mcg Escitalopram Oxalate (Lexapro -) 20 mg PO DAILY [facility] Last Admin: 07/06/17 09:26 Dose: 20 mg Heparin Sodium (Porcine) (Heparin -) 5,000 unit SQ Q8H-IV [facility] Last Admin: 07/06/17 09:26 Dose: 5,000 unit Hydralazine HCl (Apresoline -) 75 mg PO TID [facility] Last Admin: 07/06/17 14:40 Dose: 75 mg Sodium Chloride (Normal Saline -) 1,000 mls @ 50 mls/hr IV ASDIR HUNTER Stop: 07/06/17 16:00 Piperacillin Sod/Tazobactam (Sod 4.5 gm/ Dextrose) 100 mls @ 200 mls/hr IVPB Q8H-IV [facility] Last Admin: 07/06/17 12:37 Dose: 200 mls/hr Vancomycin HCl 1,000 mg/ (Dextrose) 250 mls @ 166.667 mls/hr IVPB Q24H [facility] Ipratropium [place] (Atrovent 0.02% Nebulizer -) 1 amp NEB Q6H PRN PRN Reason: DYSPEPSIA Stop: 07/12/17 20:37 Last Admin: 07/06/17 11:15 Dose: 1 amp Levothyroxine Sodium (Synthroid -) 100 mcg PO DAILY@0700 [facility] Last Admin: 07/06/17 05:22 Dose: 100 mcg Melatonin (Melatonin) 10 mg PO HS [facility] Last Admin: 07/05/17 21:55 Dose: 10 mg Non-Formulary Medication (Fluticasone Furoate [Flonase Sensimist]) 9.9 ml NS DAILY [facility] Non-Formulary Medication (Mag Carb/Al Hydrox/Alginic Ac [Gaviscon Liquid]) 30 ml PO Q6H [facility] Pantoprazole Sodium (Protonix -) 40 mg PO BID [facility] Last Admin: 07/06/17 09:26 Dose: 40 mg Polyethylene Glycol (Miralax (For Daily Use) -) 17 gm PO BID [facility] Last Admin: 07/06/17 10:45 Dose: 17 grams Valsartan (Diovan -) 320 mg PO DAILY [facility] Last Admin: 07/06/17 09:26 Dose: 320 mg - Objective Vital Signs: Vital Signs Temperature 98.9 F 07/06/17 09:00 Pulse Rate 88 07/06/17 12:18 Respiratory Rate 20 07/06/17 09:00 Blood Pressure 101/50 07/06/17 09:00 O2 Sat by Pulse Oximetry (%) 94 L 07/06/17 12:18 Constitutional: Yes: Anxious Eyes: Yes: Conjunctiva Clear Cardiovascular: Yes: Tachycardia Respiratory: Yes: Cough, On Nasal O2, Rales (worse on the left.) Gastrointestinal: Yes: Soft Genitourinary: No: [place] Present Edema: LLE: 1+, RLE: 1+ Neurological: Yes: Alert, Oriented Labs: CBC, BMP 07/06/17 06:15 07/06/17 06:15 INR, PTT INR 1.21 (0.82-1.09) H 07/05/17 14:00 - ....Imaging Chest X-ray: Report Reviewed X-ray: Report Reviewed EKG: Report Reviewed Problem List - Problems (1) Pneumonia Assessment/Plan: On IV antibiotics and seen by ID MD CXR noted. Code(s): J18.9 - PNEUMONIA, UNSPECIFIED ORGANISM Qualifiers: Pneumonia type: due to unspecified organism Laterality: unspecified laterality Lung location: unspecified part of lung Qualified Code(s) : J18.9 - Pneumonia, unspecified organism; J18.9 - Pneumonia, unspecified organism (2) Anxiety about health Assessment/Plan: Still anxious but more fatigued today. Code(s): F41.8 - OTHER SPECIFIED ANXIETY DISORDERS (3) COPD (chronic obstructive pulmonary disease) Assessment/Plan: With possible acute exacerbation. On Rx Code(s): J44.9 - CHRONIC OBSTRUCTIVE PULMONARY DISEASE, UNSPECIFIED Qualifiers : COPD type: COPD with acute exacerbation Qualified Code(s): J44.1 - Chronic obstructive pulmonary disease with (acute) exacerbation; J44.1 - Chronic obstructive pulmonary disease with (acute) exacerbation; J44.1 - Chronic obstructive pulmonary disease with (acute) exacerbation; J44.1 - Chronic obstructive pulmonary disease with (acute) exacerbation (4) UTI (urinary tract infection) Assessment/Plan: Await C/S; on antibiotics Had frquency and dysuria. Code(s): N39.0 - URINARY TRACT INFECTION, SITE NOT SPECIFIED
--- NOTE | 2017-07-06 15:49 | PN ---
Progress Note, Physician - Current Medication List Current Medications: Active Medications Acetaminophen (Tylenol -) 650 mg PO Q4H PRN PRN Reason: FEVER OR PAIN Last Admin: 07/06/17 07:54 Dose: 650 mg Aclidinium [place] (Tudorza -) 1 puff IH BID [facility] Last Admin: 07/06/17 09:27 Dose: 1 puff Albuterol Sulfate (Ventolin 0.083% Nebulizer Soln -) 1 amp NEB Q6H PRN PRN Reason: SHORT OF BREATH/WHEEZING Last Admin: 07/06/17 11:15 Dose: 1 amp Aspirin (Asa -) 81 mg PO DAILY [facility] Last Admin: 07/06/17 09:26 Dose: 81 mg Atorvastatin Calcium (Lipitor -) 40 mg PO HS [facility] Last Admin: 07/05/17 21:50 Dose: 40 mg Budesonide/Formoterol Fumarate (Symbicort 160/4.5mcg -) 2 puff IH BID [facility] Last Admin: 07/06/17 09:27 Dose: 2 puff Cyanocobalamin (Vitamin B12 -) 1,000 mcg PO DAILY [facility] Last Admin: 07/06/17 09:25 Dose: 1,000 mcg Escitalopram Oxalate (Lexapro -) 20 mg PO DAILY [facility] Last Admin: 07/06/17 09:26 Dose: 20 mg Heparin Sodium (Porcine) (Heparin -) 5,000 unit SQ Q8H-IV [facility] Last Admin: 07/06/17 09:26 Dose: 5,000 unit Hydralazine HCl (Apresoline -) 75 mg PO TID [facility] Last Admin: 07/06/17 14:40 Dose: 75 mg Sodium Chloride (Normal Saline -) 1,000 mls @ 50 mls/hr IV ASDIR [facility]TER Stop: 07/06/17 16:00 Piperacillin Sod/Tazobactam (Sod 4.5 gm/ Dextrose) 100 mls @ 200 mls/hr IVPB Q8H-IV [facility] Last Admin: 07/06/17 12:37 Dose: 200 mls/hr Vancomycin HCl 1,000 mg/ (Dextrose) 250 mls @ 166.667 mls/hr IVPB Q24H [facility] Ipratropium [place] (Atrovent 0.02% Nebulizer -) 1 amp NEB Q6H PRN PRN Reason: DYSPEPSIA Stop: 07/12/17 20:37 Last Admin: 07/06/17 11:15 Dose: 1 amp Levothyroxine Sodium (Synthroid -) 100 mcg PO DAILY@0700 [facility] Last Admin: 07/06/17 05:22 Dose: 100 mcg Melatonin (Melatonin) 10 mg PO HS [facility] Last Admin: 07/05/17 21:55 Dose: 10 mg Non-Formulary Medication (Fluticasone Furoate [Flonase Sensimist]) 9.9 ml NS DAILY [facility] Non-Formulary Medication (Mag Carb/Al Hydrox/Alginic Ac [Gaviscon Liquid]) 30 ml PO Q6H [facility] Pantoprazole Sodium (Protonix -) 40 mg PO BID [facility] Last Admin: 07/06/17 09:26 Dose: 40 mg Polyethylene Glycol (Miralax (For Daily Use) -) 17 gm PO BID [facility] Last Admin: 07/06/17 10:45 Dose: 17 grams Potassium Chloride (K-Dur -) 10 meq PO BID [facility] Valsartan (Diovan -) 320 mg PO DAILY [facility] Last Admin: 07/06/17 09:26 Dose: 320 mg - Objective Vital Signs: Vital Signs Temperature 99.1 F 07/06/17 14:00 Pulse Rate 89 07/06/17 14:00 Respiratory Rate 20 07/06/17 09:00 Blood Pressure 114/45 07/06/17 14:00 O2 Sat by Pulse Oximetry (%) 94 L 07/06/17 12:18 Labs: CBC, BMP 07/06/17 06:15 07/06/17 06:15 INR, PTT INR 1.21 (0.82-1.09) H 07/05/17 14:00
[2017-07-06] MEDS: SODIUM CHLORIDE 1,000 ML IV SCH (17:20)
--- NOTE | 2017-07-06 17:38 | CON.CARD ---
Cardiology Consult (text) - Consultation Consultation Note: cc: sob hpi: 81 f hx htn, hld, hypothyroid, cad s/p pci 2007 (lad), MR s/p repair, le edema/venous insuff, chronic URIs from chronic laryngeal reflux and recent admit for pna last week p/w worsening sob thought to have persistent pna with superimposed uti. SOB/AKBAR acutely worse over the weekend. + f/c/s. chronic dry cough, unchanged. + nausea with vomiting. + urinary frequency with burning --> as a result she stopped taking her lasix. + fatigue\ s/p 1.5 L sincee admit. Some worsening congestion of cxr, but pt states bp improving. She denies lightheadedness, dizziness, passing out, chest pain, LE edema. pnd, orthopnea She denies abdominal pain, diarrhea, h/a, congestion, rashes, visual disturbances or transient neurologic sx's. cards: ivone pmh: per hpi psh: cholecystectomy, hysterectomy social: no tob fam: no premature cad ros: per hpi; meds: Ambulatory Orders Aspirin [ASA -] 81 mg PO DAILY 04/19/17 Atorvastatin Ca [Lipitor] 40 mg PO HS 04/19/17 Cyanocobalamin (Vitamin B-12) [Vitamin B-12] 1,000 mcg PO DAILY 04/19/17 Escitalopram Oxalate [Lexapro -] 20 mg PO DAILY 04/19/17 Fluticasone Furoate [Flonase Sensimist] 9.9 ml NS DAILY 04/19/17 Levothyroxine [Synthroid -] 100 mcg PO DAILY 04/19/17 Mag Carb/Al Hydrox/Alginic AC [Gaviscon Liquid] 15 - 30 ml PO Q6H 04/19/17 Mometasone/Formoterol [Dulera 100 Mcg/5 Mcg Inhaler] 2 inh IH BID 04/19/17 Potassium Chloride [Klor-Con 8] 8 meq PO DAILY 04/19/17 Albuterol 0.083% Nebulizer Charissa [Ventolin 0.083% Nebulizer Soln -] 1 amp NEB Q6H PRN #30 amp 04/28/17 Valsartan [Diovan] 320 mg PO DAILY #60 tablet 04/28/17 Fluticasone/Vilanterol [Breo Ellipta 100-25 Mcg INH] 1 each IH DAILY 06/19/17 Hydralazine HCl [Apresoline -] 75 mg PO TID 06/19/17 Omeprazole 40 mg PO BID 06/19/17 Prednisone [Deltasone -] 10 mg PO DAILY 06/19/17 Umeclidinium [place] [Incruse Ellipta] 62.5 mcg IH DAILY 06/19/17 Acetaminophen [Tylenol .Regular Strength -] 650 mg PO Q4H PRN #0 tablet Furosemide [Lasix -] 20 mg PO DAILY tablet 06/28/17 Melatonin 10 mg PO HS tab 06/28/17 Polyethylene Glycol 3350 [Miralax 119 gm Btl -] 17 gm PO BID bottle 06/28/17 Hydralazine HCl [Apresoline -] 50 mg PO TID #120 tablet 06/29/17 Current Medications Acetaminophen (Tylenol -) 650 mg PO Q4H PRN PRN Reason: FEVER OR PAIN Last Admin: 07/06/17 15:21 Dose: 650 mg Aclidinium [place] (Tudorza -) 1 puff IH BID [facility] Last Admin: 07/06/17 09:27 Dose: 1 puff Albuterol Sulfate (Ventolin 0.083% Nebulizer Soln -) 1 amp NEB Q6H PRN PRN Reason: SHORT OF BREATH/WHEEZING Last Admin: 07/06/17 11:15 Dose: 1 amp Aspirin (Asa -) 81 mg PO DAILY [facility] Last Admin: 07/06/17 09:26 Dose: 81 mg Atorvastatin Calcium (Lipitor -) 40 mg PO HS [facility] Last Admin: 07/05/17 21:50 Dose: 40 mg Budesonide/Formoterol Fumarate (Symbicort 160/4.5mcg -) 2 puff IH BID [facility] Last Admin: 07/06/17 09:27 Dose: 2 puff Cyanocobalamin (Vitamin B12 -) 1,000 mcg PO DAILY [facility] Last Admin: 07/06/17 09:25 Dose: 1,000 mcg Escitalopram Oxalate (Lexapro -) 20 mg PO DAILY [facility] Last Admin: 07/06/17 09:26 Dose: 20 mg Heparin Sodium (Porcine) (Heparin -) 5,000 unit SQ Q8H-IV [facility] Last Admin: 07/06/17 09:26 Dose: 5,000 unit Hydralazine HCl (Apresoline -) 75 mg PO TID [facility] Last Admin: 07/06/17 14:40 Dose: 75 mg Piperacillin Sod/Tazobactam (Sod 4.5 gm/ Dextrose) 100 mls @ 200 mls/hr IVPB Q8H-IV [facility] Last Admin: 07/06/17 17:19 Dose: 200 mls/hr Vancomycin HCl 1,000 mg/ (Dextrose) 250 mls @ 166.667 mls/hr IVPB Q24H [facility] Ipratropium [place] (Atrovent 0.02% Nebulizer -) 1 amp NEB Q6H PRN PRN Reason: DYSPEPSIA Stop: 07/12/17 20:37 Last Admin: 07/06/17 11:15 Dose: 1 amp Levothyroxine Sodium (Synthroid -) 100 mcg PO DAILY@0700 [facility] Last Admin: 07/06/17 05:22 Dose: 100 mcg Melatonin (Melatonin) 10 mg PO HS [facility] Last Admin: 07/05/17 21:55 Dose: 10 mg Non-Formulary Medication (Fluticasone Furoate [Flonase Sensimist]) 9.9 ml NS DAILY [facility] Non-Formulary Medication (Mag Carb/Al Hydrox/Alginic Ac [Gaviscon Liquid]) 30 ml PO Q6H [facility] Pantoprazole Sodium (Protonix -) 40 mg PO BID [facility] Last Admin: 07/06/17 09:26 Dose: 40 mg Polyethylene Glycol (Miralax (For Daily Use) -) 17 gm PO BID [facility] Last Admin: 07/06/17 10:45 Dose: 17 grams Potassium Chloride (K-Dur -) 10 meq PO BID [facility] Valsartan (Diovan -) 320 mg PO DAILY [facility] Last Admin: 07/06/17 09:26 Dose: 320 mg Vital Signs - 24 hr 07/05/17 07/05/17 07/05/17 19:00 21:00 21:53 Temperature 97.8 F 101.4 F H Pulse Rate 64 88 Respiratory 20 22 Rate Blood Pressure 127/51 171/70 O2 Sat by Pulse 85 L Oximetry (%) 07/05/17 07/06/17 07/06/17 23:00 01:00 05:00 Temperature 100.1 F H 97.3 F L 98.9 F Pulse Rate 20 L 78 Respiratory 20 20 Rate Blood Pressure 140/74 92/41 128/65 O2 Sat by Pulse Oximetry (%) 07/06/17 07/06/17 07/06/17 09:00 12:18 14:00 Temperature 98.9 F 99.1 F Pulse Rate 90 88 89 Respiratory 20 Rate Blood Pressure 101/50 114/45 O2 Sat by Pulse 95 94 L Oximetry (%) Intake & Output 07/04/17 07/05/17 07/06/17 07/07/17 07:59 07:59 07:59 07:59 Intake Total 480 830 Balance 480 830 Weight 160 lb 3 oz nad no jvd rrr s1s2 no mrg diminshed air mov't, trace wheezes. bibasilar dullness. nl effort aaox3 no le e/c/c abd nt nd pos bs no jaundiced diaphoresis +dp/pt, no carotid bruits CBC, BMP 07/06/17 06:15 07/06/17 06:15 Laboratory Tests 06/19/17 07/05/17 07/05/17 19:50 14:00 14:00 INR 1.21 H Creatinine 1.0 D Lactic Acid Magnesium Total Bilirubin 0.6 AST 35 ALT 31 Alkaline Phosphatase 139 H Creatine Kinase 77 Troponin I 0.02 B-Natriuretic Peptide 518.38 H 1278.30 H Albumin 2.8 L 07/05/17 07/06/17 14:00 06:15 INR Creatinine Lactic Acid 1.1 Magnesium 1.8 Total Bilirubin AST ALT Alkaline Phosphatase Creatine Kinase Troponin I B-Natriuretic Peptide Albumin ekg: possible ectopic atrial rhythm with short pr interval and pac's. borderline prolonged qt. no acute ischemic changes. echo 03/2017: nl lv/rv, mild ar/mr mibi 03/2017: nl mpi, nl lvef tele: ectopic rhythm, frequent atrial runs, pac's. cxr: progressive congestive and infiltrative findings. L> R. prominent mediastinum, weak insp effort. 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 sob: - improving despite 1.5 L of IVF. + congestion on cxr, but would not try to diurese right now while sx's are improving and bp running low/ongoing active infection. - mgm't of possible contribution from copd per pmd. prolonged qt - now off levaquin, would avoid qt prolonging abx in setting of lexapro. lyte repletion, repeat ekg in am. tele monitoring. Possible residual PNA (JUAN LUIS)/UTI -on abx, symptomatically improving copd: -mgm't per pmd/pulm h/o acute diastolic chf likely secondary to hypertensive emergency (04/19): - Likely slightly volume up after 1.5 L of fluid, but symptomatically improving. Would manage diuresis once infection is stabilized and bp improves. cont to hold lasix for now. IVF now off. monitor daily weights and volume status. -recent echo and mibi unremarkable chronic LE edema/venous insuff: -improved, holding lasix as above. htn: -Would hold hydralazine and decrease valsartan dose since anti-hypertensives are currently dropping bp's. - of note, bystolic stopped on prior admit due to 2/2 bradycardia mariza with h/o worsened edema with ccb cad s/p remote pci: -no recent angina or ischemia (03/20) -trop currently normal, no ekg changes -cont home regimen asa, statin, arb
[2017-07-06] MEDS: POTASSIUM CHLORIDE TABS 10 MEQ TABLET.ER (FP) PO SCH (22:11)
[2017-07-06] MEDS: ATORVASTATIN CA 40 MG TABLET (FP) PO SCH (22:11)
[2017-07-06] MEDS: MELATONIN 5 MG TABLETS PO SCH (22:11)
[2017-07-07] MEDS ORDERED: PIPERACILLIN/TAZOBACTAM 4.5 GM VIAL IVPB ONE ×3 (01:18→17:22)
[2017-07-07] MEDS ORDERED: DEXTROSE 5%-WATER 100 ML IVPB ONE ×3 (01:18→17:22)
[2017-07-07] MEDS ORDERED: ONDANSETRON 4 MG TABLET PO PRN (01:50)
[2017-07-07] MEDS: PIPERACILLIN/TAZOB 4.5 GM 4.5 GM in DEXTROSE 5%-WATER 100 ML IVPB SCH ×3 (01:51→17:27)
[2017-07-07] MEDS ORDERED: ONDANSETRON 4 MG/2 ML VIAL ONE (01:58)
[2017-07-07] MEDS ORDERED: ONDANSETRON 4 MG/2 ML VIAL IVPB ONE (02:00)
[2017-07-07] MEDS: HEPARIN NA (PORCINE) 5,000 UNITS/ML 1ML VIAL SQ SCH ×3 (02:01→18:10)
[2017-07-07] MEDS: ACETAMINOPHEN 325 MG TABLET (FP) PO PRN ×2 (05:50→23:05)
[2017-07-07] MEDS: ALBUTEROL SO4 0.083% IH SOL 2.5 MG/3 ML VIAL.NEB. NEB PRN (06:45)
[2017-07-07] MEDS: IPRATROPIUM BR 0.02% 0.5 MG/2.5 ML VIAL.NEB. NEB PRN (06:45)
[2017-07-07] MEDS: LEVOTHYROXINE NA 100 MCG TABLET (FP) PO SCH ×2 (06:49→09:26)
[2017-07-07 07:22] LABS: BASOPHIL 0.7 % (0-2.0); EOSINOPHIL 0.3 % (0-4.5); MCH 23.1 pg (25.7-33.7); MEAN CELL VOLUME 72.3 fl (80-96); MEAN PLT VOLUME 8.4 fl (7.5-11.1); PLATELET COUNT 228 K/MM3 (134-434); RDW 19.9 % (11.6-15.6); WHITE BLOOD COUNT 11.4 K/mm3 (4.0-10.0)
[2017-07-07 07:51] LABS: ANION GAP 7 (8-16); CALCIUM 8.1 mg/dL (8.5-10.1); CO2 25 mmol/L (21-32); CREATININE 1.3 mg/dL (0.55-1.02); GLUCOSE,RANDOM 88 mg/dL (74-106)
--- NOTE | 2017-07-07 08:19 | PN ---
Progress Note (short form) - Note Progress Note: the patient is feeling better today. At bedside eating breakfast. Still occ cough and she is not certain if she coughs after eating. Less urinary frequency. No chest pain. On Exam: Vital Signs Temp 100.5 F H 07/07/17 05:51 Pulse 85 07/07/17 05:51 Resp 18 07/07/17 05:51 BP 124/43 07/07/17 05:51 Pulse Ox 94 L 07/06/17 12:18 Intake & Output 07/06/17 07/06/17 07/07/17 11:59 23:59 11:59 Intake Total 240 710 170 Balance 240 710 170 Weight 160 lb 3 oz 159 lb Intake: IVPB 350 50 Oral 240 360 120 Other: Voiding Method Toilet Toilet Toilet # Unmeasured Voids Void 2 3 1 Bowel Movement No Weight Measurement Method Standing Scale Standing Scale Alert Some rales right base > than left even though CXR says left infiltrate Cor: Reg Abd: Soft No pedal edema Abnormal Lab Results 07/06/17 07/07/17 07/07/17 06:15 05:10 05:10 WBC 27.5 H D 11.4 H D RBC 3.32 L Hgb 8.8 L 7.7 L D Hct 28.1 L 24.0 L MCV 73.6 L 72.3 L MCH 23.0 L 23.1 L MCHC 31.3 L RDW 19.7 H 19.9 H Neutrophils % (Manual) 84 H Monocytes % 11.3 H Potassium 3.4 L Anion Gap 7 L BUN 29 H Creatinine 1.3 H Calcium 8.1 L IMP: Acute pneumonia ?UTI Anxiety COPD Plan: F/U ID and Pulmonary MD's Continue Potassium F/U lab PT Speech therapist.
[2017-07-07] MEDS: CYANOCOBALAMIN 1,000 MCG TABLET (FP) PO SCH (09:25)
[2017-07-07] MEDS: ESCITALOPRAM OXALATE 20 MG TABLET (FP) PO SCH (09:25)
[2017-07-07] MEDS: PANTOPRAZOLE 40 MG TABLET (FP) PO SCH ×2 (09:25→22:36)
[2017-07-07] MEDS: VALSARTAN 160 MG TABLET (UD) PO SCH (09:25)
[2017-07-07] MEDS: ASPIRIN 81 MG CHEWABLE TABLETS PO SCH (09:25)
[2017-07-07] MEDS: ACLIDINIUM BROMIDE 400 MCG/INH AERO.POWD IH SCH (09:28)
[2017-07-07] MEDS: BUDESONIDE/FORMETEROL FUMARATE 160/4.5 mcg INHALER IH SCH ×2 (09:28→22:38)
[2017-07-07] MEDS: POLYETHYLENE GLYCOL 3350 119 GM BTL PO SCH ×2 (09:28→22:38)
[2017-07-07] MEDS: POTASSIUM CHLORIDE TABS 10 MEQ TABLET.ER (FP) PO SCH ×2 (09:28→22:36)
[2017-07-07 09:31] LABS: ERYTHROCYTE SEDIMENTATION RATE 55 mm/hr (0-30)
[2017-07-07] MEDS ORDERED: VANCOMYCIN 1 GRAM (PRE-DOCKED) 1,000 MG/250 ML BAG IVPB SCH (10:00)
--- NOTE | 2017-07-07 10:17 | PN ---
Physical Exam: Consulting Specialty: Infectious Disease SUBJECTIVE: Patient feels better today, however still requires 3LNC to alleviate SOB symptoms. Pt states she continues to have non-productive coughing. Reports having some night sweats last night, but attributes it to her fever breaking. She has been tolerating food well and denies any diarrhea currently. OBJECTIVE: Vital Signs Period Temp Pulse Resp BP Sys/Rios Pulse Ox Last 24 Hr 97.8 F-100.5 F 85-92 18-20 114-124/43-63 94 GENERAL: The patient is awake, alert, and fully oriented, in no acute distress. HEENT: Dry mucosa, normal structures. LUNGS: Rales noted in bilateral lung noonan, regular rate HEART: RRR, no murmur noted. ABDOMEN: Soft, nontender, nondistended, normoactive bowel sounds, no accessory muscle use. EXTREMITIES: No edema. No rash NEUROLOGICAL: Alert and orientedx3 PSYCH: Normal mood, normal affect. Laboratory Results - last 24 hr 07/06/17 07/07/17 07/07/17 06:15 05:10 05:10 WBC 27.5 H D 11.4 H D RBC 3.81 3.32 L Hgb 8.8 L 7.7 L D Hct 28.1 L 24.0 L MCV 73.6 L 72.3 L MCH 23.0 L 23.1 L MCHC 31.3 L 32.0 RDW 19.7 H 19.9 H Plt Count 294 228 D MPV 8.1 8.4 Total Counted 100 Neutrophils % 78.0 Neutrophils % (Manual) 84 H Lymphocytes % 9.7 Lymphocytes % (Manual) 12 Monocytes % 11.3 H Monocytes % (Manual) 4 Eosinophils % 0.3 Basophils % 0.7 Platelet Estimate Adequate ESR 55 H Sodium 136 Potassium 3.4 L Chloride 104 Carbon Dioxide 25 Anion Gap 7 L BUN 29 H Creatinine 1.3 H Random Glucose 88 Calcium 8.1 L Active Medications Generic Name Dose Route Start Last Admin Trade Name Freq PRN Reason Stop Dose Admin Acetaminophen 650 mg 07/05/17 15:58 07/07/17 05:50 Tylenol - PO 650 mg Q4H PRN Administration FEVER OR PAIN Aclidinium [place] 1 puff 07/05/17 22:00 07/07/17 09:28 Tudorza - IH 1 puff BID [facility]TER Administration Albuterol Sulfate 1 amp 07/05/17 20:36 07/07/17 06:45 Ventolin 0.083% Nebulizer Soln - NEB 1 amp Q6H PRN Administration SHORT OF BREATH/WHEEZING Aspirin 81 mg 07/06/17 10:00 07/07/17 09:25 Asa - PO 81 mg DAILY [facility] Administration Atorvastatin Calcium 40 mg 07/05/17 22:00 07/06/17 22:11 Lipitor - PO 40 mg HS [facility]TER Administration Budesonide/Formoterol Fumarate 2 puff 07/05/17 22:00 07/07/17 09:28 Symbicort 160/4.5mcg - IH 2 puff BID [facility] Administration Cyanocobalamin 1,000 mcg 07/06/17 10:00 07/07/17 09:25 Vitamin B12 - PO 1,000 mcg DAILY [facility] Administration Escitalopram Oxalate 20 mg 07/06/17 10:00 07/07/17 09:25 Lexapro - PO 20 mg DAILY [facility] Administration Heparin Sodium (Porcine) 5,000 unit 07/05/17 18:00 07/07/17 09:26 Heparin - SQ 5,000 unit Q8H-IV [facility] Administration Piperacillin Sod/Tazobactam 100 mls @ 200 mls/hr 07/06/17 11:15 07/07/17 09:25 Sod 4.5 gm/ Dextrose IVPB 200 mls/hr Q8H-IV [facility] Administration Vancomycin HCl 1,000 mg/ 250 mls @ 166.667 mls/hr 07/07/17 12:00 Dextrose IVPB Q24H [facility] Ipratropium [place] 1 amp 07/05/17 20:36 07/07/17 06:45 Atrovent 0.02% Nebulizer - NEB 07/12/17 20:37 1 amp Q6H PRN Administration DYSPEPSIA Levothyroxine Sodium 100 mcg 07/06/17 07:00 07/07/17 09:26 Synthroid - PO Not Given DAILY@0700 [facility] Melatonin 10 mg 07/05/17 22:00 07/06/17 22:11 Melatonin PO 10 mg HS [facility] Administration Non-Formulary Medication 9.9 ml 07/06/17 10:00 Fluticasone Furoate [Flonase Sensimist] NS DAILY [facility] Non-Formulary Medication 30 ml 07/05/17 16:00 Mag Carb/Al Hydrox/Alginic Ac [Gaviscon Liquid] PO Q6H [facility] Ondansetron HCl 4 mg 07/07/17 01:50 Zofran - PO Q6H PRN Pantoprazole Sodium 40 mg 07/05/17 22:00 07/07/17 09:25 Protonix - PO 40 mg BID [facility] Administration Polyethylene Glycol 17 gm 07/05/17 22:00 07/07/17 09:28 Miralax (For Daily Use) - PO 17 grams BID [facility] Administration Potassium Chloride 10 meq 07/06/17 22:00 07/07/17 09:28 K-Dur - PO 10 meq BID [facility] Administration Valsartan 160 mg 07/07/17 10:00 07/07/17 09:25 Diovan - PO 160 mg DAILY [facility] Administration ASSESSMENT: HCAP UTI PLAN: Renal ultrasound done yesterday showing normal structure of b/l kidneys without any hydronephrosis Pt's Urine clean catch preliminary report as Lactose fermenting negative bacilli currently; will continue to follow Patient clinically improved today. WBC decreased to 11.3 Patient continue on Vancomycin and Zosyn coverage --Random Vancomycin 11 today Visit type - Emergency Visit Emergency Visit: No - New Patient This patient is new to me today: No - Critical Care Critical Care patient: No
--- NOTE | 2017-07-07 10:48 | PN ---
Teaching Attending Note Name of Resident: Alfredo Lutz ATTENDING PHYSICIAN STATEMENT I saw and evaluated the patient. I reviewed the resident's note and discussed the case with the resident. I agree with the resident's findings and plan as documented. SUBJECTIVE: she is feeling better occasional dry cough OBJECTIVE: Vital Signs Period Temp Pulse Resp BP Sys/Rios Pulse Ox Last 24 Hr 97.8 F-100.5 F 85-92 18-20 114-124/43-63 94 cor-rrr lungs bibasilar crackles abd soft,nt ext no edema CBC, BMP 07/07/17 05:10 07/07/17 05:10 Microbiology 07/05/17 15:05 Urine - Urine Clean Catch Urine Culture - Preliminary Lactose Fermenting Neg Bacilli 07/05/17 14:00 Blood - Peripheral Venous Blood Culture - Preliminary NO GROWTH OBTAINED AFTER 24 HOURS, INCUBATION TO CONTINUE FOR 4 DAYS. 07/05/17 14:00 Blood - Peripheral Venous Blood Culture - Preliminary NO GROWTH OBTAINED AFTER 24 HOURS, INCUBATION TO CONTINUE FOR 4 DAYS. 07/05/17 14:01 Nasopharyngeal Swab Influenza Types A,B Antigen (JAYSON) - Final 07/05/17 14:01 Nasopharyngeal Swab - Final Laboratory Tests 07/05/17 07/07/17 15:05 09:15 Urine RBC 162 Urine WBC 2935 Random Vancomycin 11.949 ASSESSMENT AND PLAN: pneumonia- HAP uti continue vanco/zosyn as ordered overall improved f/u cultures Problem List - Problems (1) HCAP (healthcare-associated pneumonia) Code(s): J18.9 - PNEUMONIA, UNSPECIFIED ORGANISM (2) UTI (urinary tract infection) Code(s): N39.0 - URINARY TRACT INFECTION, SITE NOT SPECIFIED
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
--- NOTE | 2017-07-07 11:18 | PN ---
Progress Note (short form) - Note Progress Note: s: no cp palps dizzy; mild sob/cough o: Vital Signs Period Temp Pulse Resp BP Sys/Rios Pulse Ox Last 24 Hr 97.8 F-100.5 F 85-92 18-20 114-124/43-63 94 nad no jvd rrr s1s2 no mrg diminshed air mov't, trace wheezes. bibasilar dullness. nl effort aaox3 no le e/c/c abd nt nd pos bs no jaundice diaphoresis Current Medications Generic Name Dose Route Start Last Admin Trade Name Freq PRN Reason Stop Dose Admin Acetaminophen 650 mg 07/05/17 15:58 07/07/17 05:50 Tylenol - PO 650 mg Q4H PRN Administration FEVER OR PAIN Aclidinium [place] 1 puff 07/05/17 22:00 07/07/17 09:28 Tudorza - IH 1 puff BID HUNTER Administration Albuterol Sulfate 1 amp 07/05/17 20:36 07/07/17 06:45 Ventolin 0.083% Nebulizer Soln - NEB 1 amp Q6H PRN Administration SHORT OF BREATH/WHEEZING Aspirin 81 mg 07/06/17 10:00 07/07/17 09:25 Asa - PO 81 mg DAILY HUNTER Administration Atorvastatin Calcium 40 mg 07/05/17 22:00 07/06/17 22:11 Lipitor - PO 40 mg HS HUNTER Administration Budesonide/Formoterol Fumarate 2 puff 07/05/17 22:00 07/07/17 09:28 Symbicort 160/4.5mcg - IH 2 puff BID HUNTER Administration Cyanocobalamin 1,000 mcg 07/06/17 10:00 07/07/17 09:25 Vitamin B12 - PO 1,000 mcg DAILY HUNTER Administration Escitalopram Oxalate 20 mg 07/06/17 10:00 07/07/17 09:25 Lexapro - PO 20 mg DAILY HUNTER Administration Heparin Sodium (Porcine) 5,000 unit 07/05/17 18:00 07/07/17 09:26 Heparin - SQ 5,000 unit Q8H-IV HUNTER Administration Piperacillin Sod/Tazobactam 100 mls @ 200 mls/hr 07/06/17 11:15 07/07/17 09:25 Sod 4.5 gm/ Dextrose IVPB 200 mls/hr Q8H-IV HUNTER Administration Vancomycin HCl 1,000 mg/ 250 mls @ 166.667 mls/hr 07/07/17 12:00 Dextrose IVPB Q24H HUNTER Ipratropium [place] 1 amp 07/05/17 20:36 07/07/17 06:45 Atrovent 0.02% Nebulizer - NEB 07/12/17 20:37 1 amp Q6H PRN Administration DYSPEPSIA Levothyroxine Sodium 100 mcg 07/06/17 07:00 07/07/17 09:26 Synthroid - PO Not Given DAILY@0700 HUNTER Melatonin 10 mg 07/05/17 22:00 07/06/17 22:11 Melatonin PO 10 mg HS HUNTER Administration Non-Formulary Medication 9.9 ml 07/06/17 10:00 Fluticasone Furoate [Flonase Sensimist] NS DAILY HUNTER Non-Formulary Medication 30 ml 07/05/17 16:00 Mag Carb/Al Hydrox/Alginic Ac [Gaviscon Liquid] PO Q6H HUNTER Ondansetron HCl 4 mg 07/07/17 01:50 Zofran - PO Q6H PRN Pantoprazole Sodium 40 mg 07/05/17 22:00 07/07/17 09:25 Protonix - PO 40 mg BID HUNTER Administration Polyethylene Glycol 17 gm 07/05/17 22:00 07/07/17 09:28 Miralax (For Daily Use) - PO 17 grams BID HUNTER Administration Potassium Chloride 10 meq 07/06/17 22:00 07/07/17 09:28 K-Dur - PO 10 meq BID HUNTER Administration Valsartan 160 mg 07/07/17 10:00 07/07/17 09:25 Diovan - PO 160 mg DAILY HUNTER Administration CBC, BMP 07/07/17 05:10 07/07/17 05:10 ekg: possible ectopic atrial rhythm with short pr interval and pac's. borderline prolonged qt. no acute ischemic changes. echo 03/2017: nl lv/rv, mild ar/mr mibi 03/2017: nl mpi, nl lvef tele: sr cxr: progressive congestive and infiltrative findings. L> R. prominent mediastinum, weak insp effort. 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 sob: - improving despite 1.5 L of IVF. + congestion on cxr, but would not try to diurese right now while sx's are improving and bp running low/ongoing active infection. - mgm't of possible contribution from copd per pmd. prolonged qt - now off levaquin, would avoid qt prolonging abx in setting of lexapro. lyte repletion, tele monitoring. Possible residual PNA (JUAN LUIS)/UTI -on abx, symptomatically improving copd: -mgm't per pmd/pulm h/o acute diastolic chf likely secondary to hypertensive emergency (04/19): - Likely slightly volume up after 1.5 L of fluid, but symptomatically improving. Would manage diuresis once infection is stabilized and bp improves. cont to hold lasix for now. IVF now off. monitor daily weights and volume status. -recent echo and mibi unremarkable chronic LE edema/venous insuff: -improved, holding lasix as above. htn: -Would hold hydralazine and decrease valsartan dose since anti-hypertensives are currently dropping bp's. - of note, bystolic stopped on prior admit due to 2/2 bradycardia, also with h/ o worsened edema with ccb cad s/p remote pci: -no recent angina or ischemia (03/20) -trop currently normal, no ekg changes -cont home regimen asa, statin, arb
--- NOTE | 2017-07-07 11:22 | PN ---
Teaching Attending Note Name of Resident: Jeff Anglin ATTENDING PHYSICIAN STATEMENT I saw and evaluated the patient. I reviewed the resident's note and discussed the case with the resident. I agree with the resident's findings and plan as documented. PULMONARY IMP ACUTE HYPOXEMIC RESPIRATORY FAILURE PNEUMONIA HAP COPD UTI WITH BACTEREMIA DIASTOLIC HF ASHD S/P STENT GERD ACUTE KIDNEY INJURY PLAN IV ANTIBIOTICS PER ID INHALED BRONCHODILATORS O2 F/U CHEST X-RAYS MONITOR LYES,RENAL FUNCTION DR JANSEN Problem List - Problems (1) COPD (chronic obstructive pulmonary disease) Code(s): J44.9 - CHRONIC OBSTRUCTIVE PULMONARY DISEASE, UNSPECIFIED Qualifiers : COPD type: COPD with acute exacerbation Qualified Code(s): J44.1 - Chronic obstructive pulmonary disease with (acute) exacerbation; J44.1 - Chronic obstructive pulmonary disease with (acute) exacerbation; J44.1 - Chronic obstructive pulmonary disease with (acute) exacerbation; J44.1 - Chronic obstructive pulmonary disease with (acute) exacerbation (2) HCAP (healthcare-associated pneumonia) Code(s): J18.9 - PNEUMONIA, UNSPECIFIED ORGANISM (3) Hypoxia Code(s): R09.02 - HYPOXEMIA (4) Pneumonia Code(s): J18.9 - PNEUMONIA, UNSPECIFIED ORGANISM Qualifiers: Pneumonia type: due to unspecified organism Laterality: unspecified laterality Lung location: unspecified part of lung Qualified Code(s) : J18.9 - Pneumonia, unspecified organism; J18.9 - Pneumonia, unspecified organism (5) Shortness of breath Code(s): R06.02 - SHORTNESS OF BREATH (6) Coronary artery disease Code(s): I25.10 - ATHSCL HEART DISEASE OF [place] CORONARY ARTERY W/O ANG PCTRS Qualifiers: Coronary Disease-Associated Artery/Lesion type: ione artery [place] vs. transplanted heart: ione heart Associated angina: without angina Qualified Code(s): I25.10 - Atherosclerotic heart disease of [place] coronary artery without angina pectoris; I25.10 - Atherosclerotic heart disease of [place] coronary artery without angina pectoris; I25.10 - Atherosclerotic heart disease of [place] coronary artery without angina pectoris (7) Dyspnea Code(s): R06.00 - DYSPNEA, UNSPECIFIED Qualifiers: Dyspnea type: dyspnea on exertion Qualified Code(s): R06.09 - Other forms of dyspnea; R06.09 - Other forms of dyspnea (8) Acute hypoxemic respiratory failure Code(s): J96.01 - ACUTE RESPIRATORY FAILURE WITH HYPOXIA (9) Hypothyroid Code(s): E03.9 - HYPOTHYROIDISM, UNSPECIFIED Qualifiers: Hypothyroidism type: acquired Qualified Code(s): E03.9 - Hypothyroidism, unspecified; E03.9 - Hypothyroidism, unspecified; E03.9 - Hypothyroidism, unspecified (10) Acute kidney injury Code(s): N17.9 - ACUTE KIDNEY FAILURE, UNSPECIFIED (11) Acute on chronic diastolic (congestive) heart failure Code(s): I50.33 - ACUTE ON CHRONIC DIASTOLIC (CONGESTIVE) HEART FAILURE (12) H/O heart artery stent Code(s): Z95.5 - PRESENCE OF CORONARY ANGIOPLASTY IMPLANT AND GRAFT (13) Hypertension Code(s): I10 - ESSENTIAL (PRIMARY) HYPERTENSION Qualifiers: Hypertension type: essential hypertension Qualified Code(s): I10 - Essential (primary) hypertension; I10 - Essential (primary) hypertension; I10 - Essential (primary) hypertension
--- NOTE | 2017-07-07 11:34 | PN ---
Physical Exam: PULMONARY CONSULT SUBJECTIVE: Patient seen and examined. Doing much better this AM. No CP, SOB has decreased. OBJECTIVE: Vital Signs Period Temp Pulse Resp BP Sys/Rios Pulse Ox Last 24 Hr 97.8 F-100.5 F 85-92 18-20 114-124/43-63 94 GEN: AAOx3, NAD, Lying in bed, visibly still short of breath, better with rest HEENT: PERRLA, EOMi, No cervical LAD CV: S1, S2, RRR LUNG: Decreased air intake, crackles in lower lung bases bilaterally ABD: Soft, NT, ND, normoactive BS MSK: No edema, no erythema NEURO: CN 2-12 intact, no sensation deficits, no MSK deficits Laboratory Results - last 24 hr 07/07/17 07/07/17 07/07/17 05:10 05:10 09:15 WBC 11.4 H D RBC 3.32 L Hgb 7.7 L D Hct 24.0 L MCV 72.3 L MCH 23.1 L MCHC 32.0 RDW 19.9 H Plt Count 228 D MPV 8.4 Neutrophils % 78.0 Lymphocytes % 9.7 Monocytes % 11.3 H Eosinophils % 0.3 Basophils % 0.7 ESR 55 H Sodium 136 Potassium 3.4 L Chloride 104 Carbon Dioxide 25 Anion Gap 7 L BUN 29 H Creatinine 1.3 H Random Glucose 88 Calcium 8.1 L Random Vancomycin 11.949 Active Medications Generic Name Dose Route Start Last Admin Trade Name Freq PRN Reason Stop Dose Admin Acetaminophen 650 mg 07/05/17 15:58 07/07/17 05:50 Tylenol - PO 650 mg Q4H PRN Administration FEVER OR PAIN Albuterol Sulfate 1 amp 07/05/17 20:36 07/07/17 06:45 Ventolin 0.083% Nebulizer Soln - NEB 1 amp Q6H PRN Administration SHORT OF BREATH/WHEEZING Aspirin 81 mg 07/06/17 10:00 07/07/17 09:25 Asa - PO 81 mg DAILY HUNTER Administration Atorvastatin Calcium 40 mg 07/05/17 22:00 07/06/17 22:11 Lipitor - PO 40 mg HS HUNTER Administration Budesonide/Formoterol Fumarate 2 puff 07/05/17 22:00 07/07/17 09:28 Symbicort 160/4.5mcg - IH 2 puff BID HUNTER Administration Cyanocobalamin 1,000 mcg 07/06/17 10:00 07/07/17 09:25 Vitamin B12 - PO 1,000 mcg DAILY HUNTER Administration Escitalopram Oxalate 20 mg 07/06/17 10:00 07/07/17 09:25 Lexapro - PO 20 mg DAILY HUNTER Administration Heparin Sodium (Porcine) 5,000 unit 07/05/17 18:00 07/07/17 09:26 Heparin - SQ 5,000 unit Q8H-IV HUNTER Administration Piperacillin Sod/Tazobactam 100 mls @ 200 mls/hr 07/06/17 11:15 07/07/17 09:25 Sod 4.5 gm/ Dextrose IVPB 200 mls/hr Q8H-IV HUNTER Administration Vancomycin HCl 1,000 mg/ 250 mls @ 166.667 mls/hr 07/07/17 12:00 Dextrose IVPB Q24H HUNTER Ipratropium [place] 1 amp 07/05/17 20:36 07/07/17 06:45 Atrovent 0.02% Nebulizer - NEB 07/12/17 20:37 1 amp Q6H PRN Administration DYSPEPSIA Levothyroxine Sodium 100 mcg 07/06/17 07:00 07/07/17 09:26 Synthroid - PO Not Given DAILY@0700 HUNTER Melatonin 10 mg 07/05/17 22:00 07/06/17 22:11 Melatonin PO 10 mg HS HUNTER Administration Non-Formulary Medication 9.9 ml 07/06/17 10:00 Fluticasone Furoate [Flonase Sensimist] NS DAILY HUNTER Non-Formulary Medication 30 ml 07/05/17 16:00 Mag Carb/Al Hydrox/Alginic Ac [Gaviscon Liquid] PO Q6H HUNTER Ondansetron HCl 4 mg 07/07/17 01:50 Zofran - PO Q6H PRN Pantoprazole Sodium 40 mg 07/05/17 22:00 07/07/17 09:25 Protonix - PO 40 mg BID HUNTER Administration Polyethylene Glycol 17 gm 07/05/17 22:00 07/07/17 09:28 Miralax (For Daily Use) - PO 17 grams BID HUNTER Administration Potassium Chloride 10 meq 07/06/17 22:00 07/07/17 09:28 K-Dur - PO 10 meq BID HUNTER Administration Tiotropium [place] 1 puff 07/07/17 11:30 Spiriva - IH DAILY HUNTER Valsartan 160 mg 07/07/17 10:00 07/07/17 09:25 Diovan - PO 160 mg DAILY HUNTER Administration ASSESSMENT/PLAN: Ms. 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 She is admitted for sepsis 2/ 2 UTI and HAP # Sepsis - 2/2 HAP vs UTI - Continue antibiotics as per ID - F/u Blood cultures, Urine cultures - F/u Urine antigen - Flu swab negative # COPD - not in exacerbation - Can continue home LAMA, ICS/LABA - YARELIS/MARGARET PRN # Diastolic CHF - Monitor fluid status closely - Monitor renal function daily - Hold Lasix for now due to sepsis - Strict I&Os, daily weights Rest as per Primary. Discussed w/ Dr Goodrich. Will continue to follow. Jeff Anglin MD - PGY1 Internal Medicine Visit type - Emergency Visit Emergency Visit: No - New Patient This patient is new to me today: No - Critical Care Critical Care patient: No - Discharge Referral Referred to [facility] Med P.C.: No
[2017-07-07] MEDS ORDERED: ASPIRIN COATED 81 MG TABLET.EC ONE (13:50)
[2017-07-07] MEDS: VANCOMYCIN 1,000 MG in DEXTROSE 5%-WATER - 250 ML IVPB SCH (16:27)
[2017-07-07] MEDS: TIOTROPIUM BROMIDE 18 MCG/INH (DEVICE W/ 5 CAPSULES) IH SCH (16:28)
[2017-07-07] MEDS ORDERED: PT OWN MED DRAWER 7, Y5N ONE ×2 (22:31→23:04)
[2017-07-07] MEDS: ATORVASTATIN CA 40 MG TABLET (FP) PO SCH (22:36)
[2017-07-07] MEDS: MELATONIN 5 MG TABLETS PO SCH (22:36)
[2017-07-08] MEDS ORDERED: DEXTROSE 5%-WATER 100 ML IVPB ONE ×2 (03:46→08:30)
[2017-07-08] MEDS ORDERED: PIPERACILLIN/TAZOBACTAM 4.5 GM VIAL IVPB ONE ×2 (03:46→08:30)
[2017-07-08] MEDS: PIPERACILLIN/TAZOB 4.5 GM 4.5 GM in DEXTROSE 5%-WATER 100 ML IVPB SCH ×2 (04:04→09:46)
[2017-07-08] MEDS: HEPARIN NA (PORCINE) 5,000 UNITS/ML 1ML VIAL SQ SCH ×3 (04:05→18:14)
[2017-07-08] MEDS: LEVOTHYROXINE NA 100 MCG TABLET (FP) PO SCH (06:29)
[2017-07-08 07:19] LABS: MCHC 31.4 g/dl (32.0-36.0); MEAN CELL VOLUME 73.2 fl (80-96); MEAN PLT VOLUME 8.5 fl (7.5-11.1); PLATELET COUNT 226 K/MM3 (134-434); RDW 19.7 % (11.6-15.6)
[2017-07-08 08:12] LABS: ANION GAP 9 (8-16); CALCIUM 8.8 mg/dL (8.5-10.1); CO2 23 mmol/L (21-32); CREATININE 1.2 mg/dL (0.55-1.02); GLUCOSE,RANDOM 80 mg/dL (74-106)
[2017-07-08] MEDS ORDERED: PT OWN MED DRAWER 7, Y5N ONE ×2 (08:30→20:53)
--- NOTE | 2017-07-08 08:57 | PN ---
Progress Note (short form) - Note Progress Note: Patient seen and examined. patient wasn't feeling is well this morning had coughed and was congested overnight. Some fatigue. Some abdominal discomfort may be secondary to urinary tract infection. Afebrile. White count is improved but still anemic, Potassium improved. PT ordered. 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 Chest Rales in both a few wheezes bilaterally. Cor tachycardia. Abdomen mild suprapubic tenderness. Extremities no obvious edema. Abnormal Lab Results 07/08/17 07/08/17 05:15 05:15 RBC 3.45 L Hgb 7.9 L Hct 25.3 L MCV 73.2 L MCH 23.0 L MCHC 31.4 L RDW 19.7 H Monocytes % (Manual) 12 H Chloride 108 H BUN 27 H Creatinine 1.2 H impression: Pneumonia, possibly secondary to some aspiration. Anxiety regarding her a list Mild renal insufficiency Anemia. Acute urinary tract infection ESBL Plan: C. difficile studies Followup pulmonary and infectious disease physicians. Speech therapist to evaluate regarding modified barium swallow probable liver hemangioma.
[2017-07-08] MEDS: BUDESONIDE/FORMETEROL FUMARATE 160/4.5 mcg INHALER IH SCH ×2 (09:45→21:33)
[2017-07-08] MEDS: ESCITALOPRAM OXALATE 20 MG TABLET (FP) PO SCH (09:46)
[2017-07-08] MEDS: CYANOCOBALAMIN 1,000 MCG TABLET (FP) PO SCH (09:46)
[2017-07-08] MEDS: POTASSIUM CHLORIDE TABS 10 MEQ TABLET.ER (FP) PO SCH ×2 (09:46→21:32)
[2017-07-08] MEDS: VALSARTAN 160 MG TABLET (UD) PO SCH (09:46)
[2017-07-08] MEDS: ASPIRIN 81 MG CHEWABLE TABLETS PO SCH (09:46)
[2017-07-08] MEDS: PANTOPRAZOLE 40 MG TABLET (FP) PO SCH ×2 (09:46→21:32)
[2017-07-08] MEDS: TIOTROPIUM BROMIDE 18 MCG/INH (DEVICE W/ 5 CAPSULES) IH SCH (09:47)
--- NOTE | 2017-07-08 10:37 | PN ---
Progress Note (short form) - Note Progress Note: s: no cp palps dizzy; mild sob/cough; loose bm's now o: Vital Signs Period Temp Pulse Resp BP Sys/Rios Pulse Ox Last 24 Hr 97.6 F-98.6 F 75-79 18-20 121-139/46-65 97 nad no jvd rrr s1s2 no mrg diminshed air mov't, trace wheezes. bibasilar dullness. nl effort aaox3 no le e/c/c abd nt nd pos bs no jaundice diaphoresis Current Medications Generic Name Dose Route Start Last Admin Trade Name Freq PRN Reason Stop Dose Admin Acetaminophen 650 mg 07/05/17 15:58 07/07/17 23:05 Tylenol - PO 650 mg Q4H PRN Administration FEVER OR PAIN Albuterol Sulfate 1 amp 07/05/17 20:36 07/07/17 06:45 Ventolin 0.083% Nebulizer Soln - NEB 1 amp Q6H PRN Administration SHORT OF BREATH/WHEEZING Aspirin 81 mg 07/06/17 10:00 07/08/17 09:46 Asa - PO 81 mg DAILY HUNTER Administration Atorvastatin Cal[place] 40 mg 07/05/17 22:00 07/07/17 22:36 Lipitor - PO 40 mg HS HUNTER Administration Budesonide/Formoterol Fumarate 2 puff 07/05/17 22:00 07/08/17 09:45 Symbicort 160/4.5mcg - IH 2 puff BID HUNTER Administration Cyanocobalamin 1,000 mcg 07/06/17 10:00 07/08/17 09:46 Vitamin B12 - PO 1,000 mcg DAILY HUNTER Administration Escitalopram Oxalate 20 mg 07/06/17 10:00 07/08/17 09:46 Lexapro - PO 20 mg DAILY HUNTER Administration Guaifenesin 10 ml 07/08/17 09:15 Robitussin - PO Q4H PRN COUGH Heparin Sodium (Porcine) 5,000 unit 07/05/17 18:00 07/08/17 09:46 Heparin - SQ 5,000 unit Q8H-IV HUNTER Administration Piperacillin Sod/Tazobactam 100 mls @ 200 mls/hr 07/06/17 11:15 07/08/17 09:46 Sod 4.5 gm/ Dextrose IVPB 200 mls/hr Q8H-IV HUNTER Administration Vancomycin HCl 1,000 mg/ 250 mls @ 166.667 mls/hr 07/07/17 12:00 07/07/17 16:27 Dextrose IVPB 166.667 mls/hr Q24H HUNTER Administration Levothyroxine Sodium 100 mcg 07/06/17 07:00 07/08/17 06:29 Synthroid - PO 100 mcg DAILY@0700 HUNTER Administration Melatonin 10 mg 07/05/17 22:00 07/07/17 22:36 Melatonin PO 10 mg HS HUNTER Administration Non-Formulary Medication 9.9 ml 07/06/17 10:00 Fluticasone Furoate [Flonase Sensimist] NS DAILY HUNTER Non-Formulary Medication 30 ml 07/05/17 16:00 Mag Carb/Al Hydrox/Alginic Ac [Gaviscon Liquid] PO Q6H HUNTER Ondansetron HCl 4 mg 07/07/17 01:50 Zofran - PO Q6H PRN Pantoprazole Sodium 40 mg 07/05/17 22:00 07/08/17 09:46 Protonix - PO 40 mg BID HUNTER Administration Polyethylene Glycol 17 gm 07/05/17 22:00 07/07/17 22:38 Miralax (For Daily Use) - PO Not Given BID HUNTER Potassium Chloride 10 meq 07/06/17 22:00 07/08/17 09:46 K-Dur - PO 10 meq BID HUNTER Administration Tiotropium [place] 1 puff 07/07/17 13:00 07/08/17 09:47 Spiriva - IH 1 puff DAILY HUNTER Administration Valsartan 160 mg 07/07/17 10:00 07/08/17 09:46 Diovan - PO 160 mg DAILY HUNTER Administration CBC, BMP 07/08/17 05:15 07/08/17 05:15 ekg: possible ectopic atrial rhythm with short pr interval and pac's. borderline prolonged qt. no acute ischemic changes. echo 03/2017: nl lv/rv, mild ar/mr mibi 03/2017: nl mpi, nl lvef tele: sr cxr: progressive congestive and infiltrative findings. L> R. prominent mediastinum, weak insp effort. 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 sob: - does not appear to be 2/2 chf - on abx for pna, uti - mgm't of possible contribution from copd per pmd. prolonged qt - now off levaquin, would avoid qt prolonging abx in setting of lexapro. lyte repletion prn. Possible residual PNA (JUAN LUIS)/UTI -on abx, symptomatically improving copd: -mgm't per pmd/pulm h/o acute diastolic chf likely secondary to hypertensive emergency (04/19): - Likely slightly volume up after 1.5 L of fluid, but symptomatically improving. Would manage diuresis once infection is stabilized and bp improves. cont to hold lasix for now. IVF now off. monitor daily weights and volume status. -recent echo and mibi unremarkable chronic LE edema/venous insuff: -improved, holding lasix for now as cr up a bit and pt with loose bm's htn: -Would hold hydralazine and decrease valsartan dose since anti-hypertensives are currently dropping bp's. - of note, bystolic stopped on prior admit due to 2/2 bradycardia, also with h/ o worsened edema with ccb cad s/p remote pci: -no recent angina or ischemia (03/20) -trop currently normal, no ekg changes -cont home regimen asa, statin, arb
[2017-07-08 11:10] LABS: TOTAL CELLS COUNTED 100
[2017-07-08] MEDS: POLYETHYLENE GLYCOL 3350 119 GM BTL PO SCH ×2 (11:23→21:33)
--- NOTE | 2017-07-08 12:05 | PN ---
Progress Note, CARPET [employer]ER - Note Progress Note: Reviewed LPR/GERD precautions. Pt reported that she had a 24 hr Ph monitor which revealed "very bad reflux." Selected Entries 07/07/17 07/07/17 07/07/17 02:00 05:51 07:45 Breakfast Lunch Supper 75% Temperature 98.4 F 100.5 F H 07/07/17 07/07/17 07/07/17 09:51 10:10 14:00 Breakfast 75% Lunch 75% Supper Temperature 98.9 F 97.6 F 07/07/17 07/07/17 07/08/17 18:00 22:00 02:00 Breakfast Lunch Supper 75% Temperature 98.6 F 98.5 F 98.2 F Laboratory Tests 07/08/17 05:15 WBC 9.0 Overtly tolerating PO diet. Silent aspiration can not be r/o at bedside. Case reviewed with PMTiff and paradise. For MBS today.
[2017-07-08] MEDS: ALBUTEROL SO4 0.083% IH SOL 2.5 MG/3 ML VIAL.NEB. NEB PRN (12:41)
[2017-07-08] MEDS: guaiFENesin 200 MG/10 ML 10 ML UNIT-DOSE CUPS PO PRN (12:45)
[2017-07-08] MEDS: VANCOMYCIN 1,000 MG in DEXTROSE 5%-WATER - 250 ML IVPB SCH (12:46)
--- NOTE | 2017-07-08 12:51 | PN ---
Progress Note (short form) - Note Progress Note: PULMONARY Breathing about the same. Still with cough and wheezing. No fevers or chills. Last Vital Signs Temp Pulse Resp BP Pulse Ox 98.2 F 75 20 139/65 97 07/08/17 02:00 07/08/17 06:00 07/08/17 06:00 07/08/17 06:00 07/07/17 21:00 Gen: NAD in chair Heart: RRR Lung: decreased breath sounds at the bases, scattered rhonchi Abd: soft, nontender Ext: no edema CBC, BMP 07/08/17 05:15 07/08/17 05:15 Active Medications Acetaminophen (Tylenol -) 650 mg PO Q4H PRN PRN Reason: FEVER OR PAIN Last Admin: 07/07/17 23:05 Dose: 650 mg Albuterol Sulfate (Ventolin 0.083% Nebulizer Soln -) 1 amp NEB Q6H PRN PRN Reason: SHORT OF BREATH/WHEEZING Last Admin: 07/08/17 12:41 Dose: 1 amp Aspirin (Asa -) 81 mg PO DAILY [facility] Last Admin: 07/08/17 09:46 Dose: 81 mg Atorvastatin Calcium (Lipitor -) 40 mg PO HS [facility] Last Admin: 07/07/17 22:36 Dose: 40 mg Budesonide/Formoterol Fumarate (Symbicort 160/4.5mcg -) 2 puff IH BID [facility] Last Admin: 07/08/17 09:45 Dose: 2 puff Cyanocobalamin (Vitamin B12 -) 1,000 mcg PO DAILY HUNTER Last Admin: 07/08/17 09:46 Dose: 1,000 mcg Escitalopram Oxalate (Lexapro -) 20 mg PO DAILY [facility] Last Admin: 07/08/17 09:46 Dose: 20 mg Guaifenesin (Robitussin -) 10 ml PO Q4H PRN PRN Reason: COUGH Heparin Sodium (Porcine) (Heparin -) 5,000 unit SQ Q8H-IV HUNTER Last Admin: 07/08/17 09:46 Dose: 5,000 unit Piperacillin Sod/Tazobactam (Sod 4.5 gm/ Dextrose) 100 mls @ 200 mls/hr IVPB Q8H-IV HUNTER Last Admin: 07/08/17 09:46 Dose: 200 mls/hr Vancomycin HCl 1,000 mg/ (Dextrose) 250 mls @ 166.667 mls/hr IVPB Q24H [facility] Last Admin: 07/07/17 16:27 Dose: 166.667 mls/hr Levothyroxine Sodium (Synthroid -) 100 mcg PO DAILY@0700 [facility] Last Admin: 07/08/17 06:29 Dose: 100 mcg Melatonin (Melatonin) 10 mg PO HS [facility] Last Admin: 07/07/17 22:36 Dose: 10 mg Non-Formulary Medication (Fluticasone Furoate [Flonase Sensimist]) 9.9 ml NS DAILY [facility] Non-Formulary Medication (Mag Carb/Al Hydrox/Alginic Ac [Gaviscon Liquid]) 30 ml PO Q6H [facility] Ondansetron HCl (Zofran -) 4 mg PO Q6H PRN Pantoprazole Sodium (Protonix -) 40 mg PO BID [facility] Last Admin: 07/08/17 09:46 Dose: 40 mg Polyethylene Glycol (Miralax (For Daily Use) -) 17 gm PO BID [facility] Last Admin: 07/08/17 11:23 Dose: Not Given Potassium Chloride (K-Dur -) 10 meq PO BID [facility] Last Admin: 07/08/17 09:46 Dose: 10 meq Tiotropium [place] (Spiriva -) 1 puff IH DAILY [facility] Last Admin: 07/08/17 09:47 Dose: 1 puff Valsartan (Diovan -) 160 mg PO DAILY [facility] Last Admin: 07/08/17 09:46 Dose: 160 mg A/P Pneumonia UTI COPD LV Diastolic Dysfunction CAD Acute Kidney Injury - continue antibiotics - inhaled bronchodilators - O2 to keep SpO2 >90% - DVT prophylaxis
--- NOTE | 2017-07-08 14:12 | PN ---
Physical Exam: Consulting Specialty: Infectious Disease SUBJECTIVE: Patient seen resting OOB to chair. Pt states she's been improving and reports her coughing has decreased. She also reports new episodes of slightly watery diarrhea about 2 times. She has been ambulating in the hallway with PT and still requires 3LNC for help with SOB. Pt otherwise has no complaints. OBJECTIVE: Vital Signs Period Temp Pulse Resp BP Sys/Rios Pulse Ox Last 24 Hr 98.2 F-98.6 F 75-79 18-20 121-139/60-65 96-97 GENERAL: The patient is awake, alert, and fully oriented, in no acute distress. HEENT: Moist mucosa, normal structures. No plaques noted. LUNGS: Rales noted bilaterally in lung [place]. On 3LNC. No accessory muscle use. HEART: RRR, S1, S2 without murmur, rub or gallop. ABDOMEN: Soft, nontender, nondistended, normoactive bowel sounds EXTREMITIES: No edema. No rashes or lesions noted NEUROLOGICAL: Alert and orientedx3 PSYCH: Normal mood, normal affect. Laboratory Results - last 24 hr 07/08/17 07/08/17 05:15 05:15 WBC 9.0 RBC 3.45 L Hgb 7.9 L Hct 25.3 L MCV 73.2 L MCH 23.0 L MCHC 31.4 L RDW 19.7 H Plt Count 226 MPV 8.5 Total Counted 100 Neutrophils % No Result Required. Neutrophils % (Manual) 68 Lymphocytes % No Result Required. Lymphocytes % (Manual) 17 Monocytes % (Manual) 12 H Eosinophils % (Manual) 3 Sodium 140 Potassium 3.7 Chloride 108 H Carbon Dioxide 23 Anion Gap 9 BUN 27 H Creatinine 1.2 H Random Glucose 80 Calcium 8.8 Active Medications Generic Name Dose Route Start Last Admin Trade Name Freq PRN Reason Stop Dose Admin Acetaminophen 650 mg 07/05/17 15:58 07/07/17 23:05 Tylenol - PO 650 mg Q4H PRN Administration FEVER OR PAIN Albuterol Sulfate 1 amp 07/05/17 20:36 07/08/17 12:41 Ventolin 0.083% Nebulizer Soln - NEB 1 amp Q6H PRN Administration SHORT OF BREATH/WHEEZING Aspirin 81 mg 07/06/17 10:00 07/08/17 09:46 Asa - PO 81 mg DAILY [facility] Administration Atorvastatin Calcium 40 mg 07/05/17 22:00 07/07/17 22:36 Lipitor - PO 40 mg HS [facility] Administration Budesonide/Formoterol Fumarate 2 puff 07/05/17 22:00 07/08/17 09:45 Symbicort 160/4.5mcg - IH 2 puff BID [facility] Administration Cyanocobalamin 1,000 mcg 07/06/17 10:00 07/08/17 09:46 Vitamin B12 - PO 1,000 mcg DAILY [facility] Administration Escitalopram Oxalate 20 mg 07/06/17 10:00 07/08/17 09:46 Lexapro - PO 20 mg DAILY [facility] Administration Guaifenesin 10 ml 07/08/17 09:15 07/08/17 12:45 Robitussin - PO 10 ml Q4H PRN Administration COUGH Heparin Sodium (Porcine) 5,000 unit 07/05/17 18:00 07/08/17 09:46 Heparin - SQ 5,000 unit Q8H-IV [facility] Administration Ertapenem 1 gm/ Sodium 50 mls @ 50 mls/hr 07/08/17 14:15 Chloride IVPB DAILY [facility] Protocol Levothyroxine Sodium 100 mcg 07/06/17 07:00 07/08/17 06:29 Synthroid - PO 100 mcg DAILY@0700 [facility] Administration Melatonin 10 mg 07/05/17 22:00 07/07/17 22:36 Melatonin PO 10 mg HS [facility] Administration Non-Formulary Medication 9.9 ml 07/06/17 10:00 Fluticasone Furoate [Flonase Sensimist] NS DAILY [facility] Non-Formulary Medication 30 ml 07/05/17 16:00 Mag Carb/Al Hydrox/Alginic Ac [Gaviscon Liquid] PO Q6H [facility] Ondansetron HCl 4 mg 07/07/17 01:50 Zofran - PO Q6H PRN Pantoprazole Sodium 40 mg 07/05/17 22:00 07/08/17 09:46 Protonix - PO 40 mg BID [facility] Administration Polyethylene Glycol 17 gm 07/05/17 22:00 07/08/17 11:23 Miralax (For Daily Use) - PO Not Given BID [facility] Potassium Chloride 10 meq 07/06/17 22:00 07/08/17 09:46 K-Dur - PO 10 meq BID [facility] Administration Tiotropium [place] 1 puff 07/07/17 13:00 07/08/17 09:47 Spiriva - IH 1 puff DAILY [facility] Administration Valsartan 160 mg 07/07/17 10:00 07/08/17 09:46 Diovan - PO 160 mg DAILY [facility] Administration ASSESSMENT: HCAP UTI PLAN: 81yo F who initially presented with SOB, cough, fever, and urinary symptoms to the ED found to have infiltrate processes on CXR. Being treated for HCAP and UTI. Pt received 2 days Vancomycin and Zosyn for broad spectrum coverage. D/C Vancomycin and Zosyn Start Ertapenem 1gm IV qDaily in light of urine culture + with ESBL sensitive to carbapenems --Blood cultures without growth --Day 3 of antibiotics Diarrhea most likely related to antibiotic usage; not concerning currently, but will follow up Recommend precautions Case discussed with Dr. Quincy Lutz, DO - Internal Medicine PGY-1 Visit type - Emergency Visit Emergency Visit: No - New Patient This patient is new to me today: No - Critical Care Critical Care patient: No
--- NOTE | 2017-07-08 14:18 | EKG ---
Test Reason : Blood Pressure : / mmHG Vent. Rate : 086 BPM Atrial Rate : 088 BPM P-R Int : 000 ms QRS Dur : 088 ms QT Int : 426 ms P-R-T Axes : 000 021 029 degrees QTc Int : 509 ms SINUS RHYTHM PREMATURE ATRIAL COMPLEXES PROLONGED QT ABNORMAL ECG Confirmed by KATHERIN VELASCO MD ([id number]) on 07/08/2017 2:18:35 PM Referred By: Phani PEDRAZA Confirmed By:KATHERIN VELASCO MD
--- NOTE | 2017-07-08 16:17 | PN ---
Teaching Attending Note Name of Resident: Alfredo Lutz ATTENDING PHYSICIAN STATEMENT I saw and evaluated the patient. I reviewed the resident's note and discussed the case with the resident. I agree with the resident's findings and plan as documented. SUBJECTIVE: OBJECTIVE: ASSESSMENT AND PLAN:
[2017-07-08] MEDS: SODIUM CHLORIDE 1,000 ML IV SCH (17:42)
[2017-07-08] MEDS: ACETAMINOPHEN 325 MG TABLET (FP) PO PRN (18:29)
[2017-07-08] MEDS ORDERED: FLU VACCINE QUAD 60 MCG/0.5 ML (MDV 17-18) IM ONE (18:45)
--- NOTE | 2017-07-08 19:35 | PN ---
Teaching Attending Note Name of Resident: Alfredo Lutz ATTENDING PHYSICIAN STATEMENT I saw and evaluated the patient. I reviewed the resident's note and discussed the case with the resident. I agree with the resident's findings and plan as documented. SUBJECTIVE: C/O abdominal discomfort with cough No c/o fever/ chills No c/o dysuria/hematuria Temps, WBC improved OBJECTIVE: Awake, alert cor S1S2 few rhonchi bilaterally abdomen soft, non tender ASSESSMENT AND PLAN: Pneumonia UTI- ESBL Fever/ leukocytosis- improved D/C zosyn Substitute ertapenem Contact precautions
[2017-07-08] MEDS: ATORVASTATIN CA 40 MG TABLET (FP) PO SCH (21:32)
[2017-07-08] MEDS: MELATONIN 5 MG TABLETS PO SCH (21:38)
[2017-07-09] MEDS: HEPARIN NA (PORCINE) 5,000 UNITS/ML 1ML VIAL SQ SCH ×3 (01:40→17:45)
[2017-07-09] MEDS: LEVOTHYROXINE NA 100 MCG TABLET (FP) PO SCH (06:47)
[2017-07-09] MEDS: ERTAPENEM SODIUM 1 GM in SODIUM CHLORIDE 50 ML IVPB SCH ×2 (07:20→09:28)
[2017-07-09 08:03] LABS: BASOPHIL 0.7 % (0-2.0); EOSINOPHIL 3.6 % (0-4.5); MCH 23.3 pg (25.7-33.7); MCHC 31.9 g/dl (32.0-36.0); MEAN CELL VOLUME 73.1 fl (80-96); MEAN PLT VOLUME 8.6 fl (7.5-11.1); NEUTROPHILS 60.7 % (42.8-82.8); PLATELET COUNT 241 K/MM3 (134-434); RDW 19.9 % (11.6-15.6); WHITE BLOOD COUNT 9.3 K/mm3 (4.0-10.0)
[2017-07-09 08:13] LABS: CALCIUM 8.7 mg/dL (8.5-10.1); GLUCOSE,RANDOM 77 mg/dL (74-106)
[2017-07-09 08:14] LABS: ANION GAP 11 (8-16); CO2 22 mmol/L (21-32)
[2017-07-09] MEDS: ACETAMINOPHEN 325 MG TABLET (FP) PO PRN (08:33)
[2017-07-09] MEDS: ESCITALOPRAM OXALATE 20 MG TABLET (FP) PO SCH (09:28)
[2017-07-09] MEDS: VALSARTAN 160 MG TABLET (UD) PO SCH (09:28)
[2017-07-09] MEDS: ASPIRIN 81 MG CHEWABLE TABLETS PO SCH (09:28)
[2017-07-09] MEDS: PANTOPRAZOLE 40 MG TABLET (FP) PO SCH ×2 (09:28→21:30)
[2017-07-09] MEDS: POTASSIUM CHLORIDE TABS 10 MEQ TABLET.ER (FP) PO SCH ×2 (09:28→21:30)
[2017-07-09] MEDS: BUDESONIDE/FORMETEROL FUMARATE 160/4.5 mcg INHALER IH SCH ×2 (09:29→21:32)
[2017-07-09] MEDS: CYANOCOBALAMIN 1,000 MCG TABLET (FP) PO SCH (09:29)
[2017-07-09] MEDS: TIOTROPIUM BROMIDE 18 MCG/INH (DEVICE W/ 5 CAPSULES) IH SCH (09:29)
[2017-07-09] MEDS: POLYETHYLENE GLYCOL 3350 119 GM BTL PO SCH ×2 (09:51→21:31)
--- NOTE | 2017-07-09 09:57 | PN ---
Progress Note (short form) - Note Progress Note: Patient sitting at the bedside. Coughing has lessened No dysuria Soft BM; no diarrhea On Exam: Vital Signs Temp 98.1 F 07/09/17 08:41 Pulse 74 07/09/17 08:41 Resp 24 07/09/17 08:41 BP 178/67 07/09/17 08:41 Pulse Ox 98 07/08/17 21:00 Intake & Output 07/08/17 07/08/17 07/09/17 11:59 23:59 11:59 Intake Total 700 300 Balance 700 300 Weight 159 lb 9.6 oz 157 lb 5 oz Intake: Oral 700 300 Other: Voiding Method Toilet Toilet # Unmeasured Voids Void 1 1 1 Bowel Movement No Weight Measurement Method Standing Scale Built in Bedscale Alert pale Chest: some rhonchi and rales left and right Cor:reg Abd: Nontender Ext: No edema Abnormal Lab Results 07/08/17 07/09/17 07/09/17 05:15 07:00 07:00 RBC 3.45 L 3.40 L Hgb 7.9 L 7.9 L Hct 25.3 L 24.9 L MCV 73.2 L 73.1 L MCH 23.0 L 23.3 L MCHC 31.4 L 31.9 L RDW 19.7 H 19.9 H Monocytes % 14.1 H Monocytes % (Manual) 12 H Chloride 110 H BUN 23 H IMP: Acute Pneumonia on RX Acute UTI ESBL Chronic Anemia Liver Hemangioma COPD with Acute Exacerbation Plan: Continue IV Antibiotics F/U lad PT Can shower if OK with PT.
[2017-07-09] MEDS: ALBUTEROL SO4 0.083% IH SOL 2.5 MG/3 ML VIAL.NEB. NEB PRN (10:45)
--- NOTE | 2017-07-09 13:54 | PN ---
Progress Note, Physician History of Present Illness: pulmonary alert,feeling better,,oob-chair,less dyspneic,+cough - Current Medication List Current Medications: Active Medications Acetaminophen (Tylenol -) 650 mg PO Q4H PRN PRN Reason: FEVER OR PAIN Last Admin: 07/09/17 08:33 Dose: 650 mg Albuterol Sulfate (Ventolin 0.083% Nebulizer Soln -) 1 amp NEB Q6H PRN PRN Reason: SHORT OF BREATH/WHEEZING Last Admin: 07/09/17 10:45 Dose: 1 amp Aspirin (Asa -) 81 mg PO DAILY [facility] Last Admin: 07/09/17 09:28 Dose: 81 mg Atorvastatin Calcium (Lipitor -) 40 mg PO HS [facility] Last Admin: 07/08/17 21:32 Dose: 40 mg Budesonide/Formoterol Fumarate (Symbicort 160/4.5mcg -) 2 puff IH BID [facility] Last Admin: 07/09/17 09:29 Dose: 2 puff Cyanocobalamin (Vitamin B12 -) 1,000 mcg PO DAILY [facility] Last Admin: 07/09/17 09:29 Dose: 1,000 mcg Escitalopram Oxalate (Lexapro -) 20 mg PO DAILY [facility] Last Admin: 07/09/17 09:28 Dose: 20 mg Guaifenesin (Robitussin -) 10 ml PO Q4H PRN PRN Reason: COUGH Last Admin: 07/08/17 12:45 Dose: 10 ml Heparin Sodium (Porcine) (Heparin -) 5,000 unit SQ Q8H-IV [facility] Last Admin: 07/09/17 09:28 Dose: 5,000 unit Ertapenem 1 gm/ Sodium (Chloride) 50 mls @ 100 mls/hr IVPB DAILY [facility] PRN Reason: Protocol Last Admin: 07/09/17 09:28 Dose: 100 mls/hr Levothyroxine Sodium (Synthroid -) 100 mcg PO DAILY@0700 [facility] Last Admin: 07/09/17 06:47 Dose: 100 mcg Melatonin (Melatonin) 10 mg PO HS [facility] Last Admin: 07/08/17 21:38 Dose: 10 mg Non-Formulary Medication (Fluticasone Furoate [Flonase Sensimist]) 9.9 ml NS DAILY [facility] Non-Formulary Medication (Mag Carb/Al Hydrox/Alginic Ac [Gaviscon Liquid]) 30 ml PO Q6H [facility] Ondansetron HCl (Zofran -) 4 mg PO Q6H PRN Pantoprazole Sodium (Protonix -) 40 mg PO BID [facility] Last Admin: 07/09/17 09:28 Dose: 40 mg Polyethylene Glycol (Miralax (For Daily Use) -) 17 gm PO BID [facility] Last Admin: 07/09/17 09:51 Dose: Not Given Potassium Chloride (K-Dur -) 10 meq PO BID [facility] Last Admin: 07/09/17 09:28 Dose: 10 meq Tiotropium [place] (Spiriva -) 1 puff IH DAILY [facility] Last Admin: 07/09/17 09:29 Dose: 1 puff Valsartan (Diovan -) 160 mg PO DAILY [facility] Last Admin: 07/09/17 09:28 Dose: 160 mg - Objective Vital Signs: Vital Signs Temperature 98.1 F 07/09/17 08:41 Pulse Rate 76 07/09/17 10:40 Respiratory Rate 24 07/09/17 08:41 Blood Pressure 150/54 07/09/17 11:42 O2 Sat by Pulse Oximetry (%) 97 07/09/17 10:40 Constitutional: Yes: Well Nourished, Calm Eyes: Yes: WNL HENT: Yes: WNL Neck: Yes: WNL Cardiovascular: Yes: Regular Rate and Rhythm, S1, S2 Respiratory: Yes: Rhonchi (few rhonchi) Gastrointestinal: Yes: Normal Bowel Sounds, Soft Extremities: Yes: WNL Edema: No Labs: CBC, BMP 07/09/17 07:00 07/09/17 07:00 INR, PTT INR 1.21 (0.82-1.09) H 07/05/17 14:00 Problem List - Problems (1) COPD (chronic obstructive pulmonary disease) Code(s): J44.9 - CHRONIC OBSTRUCTIVE PULMONARY DISEASE, UNSPECIFIED Qualifiers : COPD type: COPD with acute exacerbation Qualified Code(s): J44.1 - Chronic obstructive pulmonary disease with (acute) exacerbation; J44.1 - Chronic obstructive pulmonary disease with (acute) exacerbation; J44.1 - Chronic obstructive pulmonary disease with (acute) exacerbation; J44.1 - Chronic obstructive pulmonary disease with (acute) exacerbation (2) HCAP (healthcare-associated pneumonia) Code(s): J18.9 - PNEUMONIA, UNSPECIFIED ORGANISM (3) Hypoxia Code(s): R09.02 - HYPOXEMIA (4) Pneumonia Code(s): J18.9 - PNEUMONIA, UNSPECIFIED ORGANISM Qualifiers: Pneumonia type: due to unspecified organism Laterality: unspecified laterality Lung location: unspecified part of lung Qualified Code(s) : J18.9 - Pneumonia, unspecified organism; J18.9 - Pneumonia, unspecified organism (5) Shortness of breath Code(s): R06.02 - SHORTNESS OF BREATH (6) Coronary artery disease Code(s): I25.10 - ATHSCL HEART DISEASE OF [place] CORONARY ARTERY W/O ANG PCTRS Qualifiers: Coronary Disease-Associated Artery/Lesion type: [place] artery [place] vs. transplanted heart: [place] heart Associated angina: without angina Qualified Code(s): I25.10 - Atherosclerotic heart disease of [place] coronary artery without angina pectoris; I25.10 - Atherosclerotic heart disease of [place] coronary artery without angina pectoris; I25.10 - Atherosclerotic heart disease of [place] coronary artery without angina pectoris (7) Dyspnea Code(s): R06.00 - DYSPNEA, UNSPECIFIED Qualifiers: Dyspnea type: dyspnea on exertion Qualified Code(s): R06.09 - Other forms of dyspnea; R06.09 - Other forms of dyspnea (8) Acute hypoxemic respiratory failure Code(s): J96.01 - ACUTE RESPIRATORY FAILURE WITH HYPOXIA (9) Hypothyroid Code(s): E03.9 - HYPOTHYROIDISM, UNSPECIFIED Qualifiers: Hypothyroidism type: acquired Qualified Code(s): E03.9 - Hypothyroidism, unspecified; E03.9 - Hypothyroidism, unspecified; E03.9 - Hypothyroidism, unspecified (10) Acute kidney injury Code(s): N17.9 - ACUTE KIDNEY FAILURE, UNSPECIFIED (11) Acute on chronic diastolic (congestive) heart failure Code(s): I50.33 - ACUTE ON CHRONIC DIASTOLIC (CONGESTIVE) HEART FAILURE (12) H/O heart artery stent Code(s): Z95.5 - PRESENCE OF CORONARY ANGIOPLASTY IMPLANT AND GRAFT (13) Hypertension Code(s): I10 - ESSENTIAL (PRIMARY) HYPERTENSION Qualifiers: Hypertension type: essential hypertension Qualified Code(s): I10 - Essential (primary) hypertension; I10 - Essential (primary) hypertension; I10 - Essential (primary) hypertension Assessment/Plan IMP ACUTE HYPOXEMIC RESPIRATORY FAILURE IMPROVING PNEUMONIA HAP COPD UTI WITH BACTEREMIA DIASTOLIC HF ASHD S/P STENT GERD ACUTE KIDNEY INJURY PLAN IV ANTIBIOTICS PER ID INHALED BRONCHODILATORS O2 F/U CHEST X-RAY TODAY MONITOR LYES,RENAL FUNCTION DR JANSEN Problem List - Problems (1) COPD (chronic obstructive pulmonary disease) Code(s): J44.9 - CHRONIC OBSTRUCTIVE PULMONARY DISEASE, UNSPECIFIED Qualifiers : COPD type: COPD with acute exacerbation Qualified Code(s): J44.1 - Chronic obstructive pulmonary disease with (acute) exacerbation; J44.1 - Chronic obstructive pulmonary disease with (acute) exacerbation; J44.1 - Chronic obstructive pulmonary disease with (acute) exacerbation; J44.1 - Chronic obstructive pulmonary disease with (acute) exacerbation (2) HCAP (healthcare-associated pneumonia) Code(s): J18.9 - PNEUMONIA, UNSPECIFIED ORGANISM (3) Hypoxia Code(s): R09.02 - HYPOXEMIA (4) Pneumonia Code(s): J18.9 - PNEUMONIA, UNSPECIFIED ORGANISM Qualifiers: Pneumonia type: due to unspecified organism Laterality: unspecified laterality Lung location: unspecified part of lung Qualified Code(s) : J18.9 - Pneumonia, unspecified organism; J18.9 - Pneumonia, unspecified organism (5) Shortness of breath Code(s): R06.02 - SHORTNESS OF BREATH (6) Coronary artery disease Code(s): I25.10 - ATHSCL HEART DISEASE OF [place] CORONARY ARTERY W/O ANG PCTRS Qualifiers: Coronary Disease-Associated Artery/Lesion type: [place] artery [place] vs. transplanted heart: [place] heart Associated angina: without angina Qualified Code(s): I25.10 - Atherosclerotic heart disease of [place] coronary artery without angina pectoris; I25.10 - Atherosclerotic heart disease of [place] coronary artery without angina pectoris; I25.10 - Atherosclerotic heart disease of [place] coronary artery without angina pectoris (7) Dyspnea Code(s): R06.00 - DYSPNEA, UNSPECIFIED Qualifiers: Dyspnea type: dyspnea on exertion Qualified Code(s): R06.09 - Other forms of dyspnea; R06.09 - Other forms of dyspnea (8) Acute hypoxemic respiratory failure Code(s): J96.01 - ACUTE RESPIRATORY FAILURE WITH HYPOXIA (9) Hypothyroid Code(s): E03.9 - HYPOTHYROIDISM, UNSPECIFIED Qualifiers: Hypothyroidism type: acquired Qualified Code(s): E03.9 - Hypothyroidism, unspecified; E03.9 - Hypothyroidism, unspecified; E03.9 - Hypothyroidism, unspecified (10) Acute kidney injury Code(s): N17.9 - ACUTE KIDNEY FAILURE, UNSPECIFIED (11) Acute on chronic diastolic (congestive) heart failure Code(s): I50.33 - ACUTE ON CHRONIC DIASTOLIC (CONGESTIVE) HEART FAILURE (12) H/O heart artery stent Code(s): Z95.5 - PRESENCE OF CORONARY ANGIOPLASTY IMPLANT AND GRAFT (13) Hypertension Code(s): I10 - ESSENTIAL (PRIMARY) HYPERTENSION Qualifiers: Hypertension type: essential hypertension Qualified Code(s): I10 - Essential (primary) hypertension; I10 - Essential (primary) hypertension; I10 - Essential (primary) hypertension
--- NOTE | 2017-07-09 15:08 | PN ---
Physical Exam: Consulting Specialty: Infectious Disease SUBJECTIVE: Patient did not receive yesterday's dose of Ertapenem due to miscommunication with pharmacy and staff. Otherwise no acute events overnight. Afebrile for 24hrs. WBC decreased to 9,300. Pt states her only complaint is that she feels more tired today compared to yesterday. She also states her episode of loose stools/diarrhea has resolved. Denies abd pain, CP/discomfort, fever/chills. OBJECTIVE: Vital Signs Period Temp Pulse Resp BP Sys/Rios Pulse Ox Last 24 Hr 97.8 F-98.7 F 69-80 18-24 99-182/54-83 96-98 GENERAL: Patient OOB to chair, NAD, awake alert HEENT: Moist mucosa. Normal structures. No lymphadenopathy appreciated LUNGS: Slightly tachypneic, coarse breath sounds noted diffusely. 3LNC currently. No accessory muscles utilized HEART: RRR, S1, S2 without murmur, rub or gallop. ABDOMEN: Soft, nontender, nondistended, normoactive bowel sounds EXTREMITIES: No edema. No rash or lesions noted. NEUROLOGICAL: Alert and oriented. Non-focal PSYCH: Normal mood, normal affect. Laboratory Results - last 24 hr 07/09/17 07/09/17 07:00 07:00 WBC 9.3 RBC 3.40 L Hgb 7.9 L Hct 24.9 L MCV 73.1 L MCH 23.3 L MCHC 31.9 L RDW 19.9 H Plt Count 241 MPV 8.6 Neutrophils % 60.7 D Lymphocytes % 20.9 D Monocytes % 14.1 H Eosinophils % 3.6 D Basophils % 0.7 Sodium 143 Potassium 4.1 Chloride 110 H Carbon Dioxide 22 Anion Gap 11 BUN 23 H Creatinine 1.0 Random Glucose 77 Calcium 8.7 Active Medications Generic Name Dose Route Start Last Admin Trade Name Freq PRN Reason Stop Dose Admin Acetaminophen 650 mg 07/05/17 15:58 07/09/17 08:33 Tylenol - PO 650 mg Q4H PRN Administration FEVER OR PAIN Albuterol Sulfate 1 amp 07/05/17 20:36 07/09/17 10:45 Ventolin 0.083% Nebulizer Soln - NEB 1 amp Q6H PRN Administration SHORT OF BREATH/WHEEZING Aspirin 81 mg 07/06/17 10:00 07/09/17 09:28 Asa - PO 81 mg DAILY [facility] Administration Atorvastatin [place] 40 mg 07/05/17 22:00 07/08/17 21:32 Lipitor - PO 40 mg HS [facility] Administration Budesonide/Formoterol Fumarate 2 puff 07/05/17 22:00 07/09/17 09:29 Symbicort 160/4.5mcg - IH 2 puff BID [facility] Administration Cyanocobalamin 1,000 mcg 07/06/17 10:00 07/09/17 09:29 Vitamin B12 - PO 1,000 mcg DAILY [facility] Administration Escitalopram Oxalate 20 mg 07/06/17 10:00 07/09/17 09:28 Lexapro - PO 20 mg DAILY [facility] Administration Guaifenesin 10 ml 07/08/17 09:15 07/08/17 12:45 Robitussin - PO 10 ml Q4H PRN Administration COUGH Heparin Sodium (Porcine) 5,000 unit 07/05/17 18:00 07/09/17 09:28 Heparin - SQ 5,000 unit Q8H-IV [facility] Administration Ertapenem 1 gm/ Sodium 50 mls @ 100 mls/hr 07/08/17 14:15 07/09/17 09:28 Chloride IVPB 100 mls/hr DAILY [facility] Administration Protocol Levothyroxine Sodium 100 mcg 07/06/17 07:00 07/09/17 06:47 Synthroid - PO 100 mcg DAILY@0700 [facility] Administration Melatonin 10 mg 07/05/17 22:00 07/08/17 21:38 Melatonin PO 10 mg HS [facility] Administration Non-Formulary Medication 9.9 ml 07/06/17 10:00 Fluticasone Furoate [Flonase Sensimist] NS DAILY [facility] Non-Formulary Medication 30 ml 07/05/17 16:00 Mag Carb/Al Hydrox/Alginic Ac [Gaviscon Liquid] PO Q6H [facility] Ondansetron HCl 4 mg 07/07/17 01:50 Zofran - PO Q6H PRN Pantoprazole Sodium 40 mg 07/05/17 22:00 07/09/17 09:28 Protonix - PO 40 mg BID [facility] Administration Polyethylene Glycol 17 gm 07/05/17 22:00 07/09/17 09:51 Miralax (For Daily Use) - PO Not Given BID [facility] Potassium Chloride 10 meq 07/06/17 22:00 10/06/17 09:28 K-Dur - PO 10 meq BID [facility] Administration Tiotropium [place] 1 puff 07/07/17 13:00 07/09/17 09:29 Spiriva - IH 1 puff DAILY [facility] Administration Valsartan 160 mg 07/07/17 10:00 07/09/17 09:28 Diovan - PO 160 mg DAILY [facility] Administration ASSESSMENT: UTI - ESBL Suspected HCAP PLAN: Resume schedule of Ertapenem 1gm qDaily IV as normal; will receive her first dose of Ertapenem today O2 requirements remain the same at 3LNC -Total day 4 of antibiotics; Day 1 of Ertapenem Case discussed with Dr. Quincy Lutz, DO - Internal Medicine PGY-1 Visit type - Emergency Visit Emergency Visit: No - New Patient This patient is new to me today: No - Critical Care Critical Care patient: No
--- NOTE | 2017-07-09 15:24 | PN ---
Teaching Attending Note Name of Resident: Alfredo Lutz ATTENDING PHYSICIAN STATEMENT I saw and evaluated the patient. I reviewed the resident's note and discussed the case with the resident. I agree with the resident's findings and plan as documented. SUBJECTIVE: C/O generalized weakness Appears slightly dyspneic at rest No c/o dysuria Temps, WBC improved OBJECTIVE: Cor S1S2 Scatterred rhonchi Abdo soft no suprapubic tenderness ASSESSMENT AND PLAN: Pneumonia ESBL UTI Fever/ leukocytosis- improved Continue ertapenem Contact precautions
[2017-07-09] MEDS: ATORVASTATIN CA 40 MG TABLET (FP) PO SCH (21:30)
[2017-07-09] MEDS: MELATONIN 5 MG TABLETS PO SCH (21:31)
[2017-07-10] MEDS: HEPARIN NA (PORCINE) 5,000 UNITS/ML 1ML VIAL SQ SCH ×3 (02:31→17:09)
[2017-07-10] MEDS: LEVOTHYROXINE NA 100 MCG TABLET (FP) PO SCH (05:59)
[2017-07-10 08:17] LABS: BASOPHIL 0.5 % (0-2.0); EOSINOPHIL 3.1 % (0-4.5); MCHC 30.4 g/dl (32.0-36.0); MEAN CELL VOLUME 75.9 fl (80-96); MEAN PLT VOLUME 8.2 fl (7.5-11.1); NEUTROPHILS 65.8 % (42.8-82.8); PLATELET COUNT 211 K/MM3 (134-434); WHITE BLOOD COUNT 8.6 K/mm3 (4.0-10.0)
[2017-07-10 08:42] LABS: ANION GAP 8 (8-16); CALCIUM 9.1 mg/dL (8.5-10.1); CO2 24 mmol/L (21-32); CREATININE 0.9 mg/dL (0.55-1.02); GLUCOSE,RANDOM 82 mg/dL (74-106)
[2017-07-10] MEDS ORDERED: PT OWN MED DRAWER 7, Y5N ONE ×3 (09:54→21:39)
[2017-07-10] MEDS: ERTAPENEM SODIUM 1 GM in SODIUM CHLORIDE 50 ML IVPB SCH (10:04)
[2017-07-10] MEDS: POTASSIUM CHLORIDE TABS 10 MEQ TABLET.ER (FP) PO SCH ×2 (10:04→22:15)
[2017-07-10] MEDS: CYANOCOBALAMIN 1,000 MCG TABLET (FP) PO SCH (10:05)
[2017-07-10] MEDS: VALSARTAN 160 MG TABLET (UD) PO SCH (10:05)
[2017-07-10] MEDS: ESCITALOPRAM OXALATE 20 MG TABLET (FP) PO SCH (10:05)
[2017-07-10] MEDS: ASPIRIN 81 MG CHEWABLE TABLETS PO SCH (10:05)
[2017-07-10] MEDS: PANTOPRAZOLE 40 MG TABLET (FP) PO SCH ×2 (10:05→22:16)
[2017-07-10] MEDS: TIOTROPIUM BROMIDE 18 MCG/INH (DEVICE W/ 5 CAPSULES) IH SCH (10:06)
[2017-07-10] MEDS: BUDESONIDE/FORMETEROL FUMARATE 160/4.5 mcg INHALER IH SCH (10:06)
[2017-07-10] MEDS: POLYETHYLENE GLYCOL 3350 119 GM BTL PO SCH ×2 (10:07→22:18)
[2017-07-10] MEDS ORDERED: VALSARTAN 160 MG TABLET (UD) PO ONE (12:49)
--- NOTE | 2017-07-10 12:53 | PN ---
Progress Note, Physician History of Present Illness: PULMONARY ALERT,FEELS WEAK,+COUGH - Current Medication List Current Medications: Active Medications Acetaminophen (Tylenol -) 650 mg PO Q4H PRN PRN Reason: FEVER OR PAIN Last Admin: 07/09/17 08:33 Dose: 650 mg Arformoterol Tartrate (Brovana (Restricted To Pulmonology/Resp) -) 1 amp NEB BID [facility] Aspirin (Asa -) 81 mg PO DAILY [facility] Last Admin: 07/10/17 10:05 Dose: 81 mg Atorvastatin Calcium (Lipitor -) 40 mg PO HS [facility] Last Admin: 07/09/17 21:30 Dose: 40 mg Budesonide/Formoterol Fumarate (Symbicort 160/4.5mcg -) 2 puff IH BID [facility] Last Admin: 07/10/17 10:06 Dose: 2 puff Cyanocobalamin (Vitamin B12 -) 1,000 mcg PO DAILY [facility] Last Admin: 07/10/17 10:05 Dose: 1,000 mcg Escitalopram Oxalate (Lexapro -) 20 mg PO DAILY [facility] Last Admin: 07/10/17 10:05 Dose: 20 mg Furosemide (Lasix -) 20 mg PO DAILY [facility] Guaifenesin (Robitussin -) 10 ml PO Q4H PRN PRN Reason: COUGH Last Admin: 07/08/17 12:45 Dose: 10 ml Heparin Sodium (Porcine) (Heparin -) 5,000 unit SQ Q8H-IV [facility] Last Admin: 07/10/17 10:04 Dose: 5,000 unit Ertapenem 1 gm/ Sodium (Chloride) 50 mls @ 100 mls/hr IVPB DAILY [facility] PRN Reason: Protocol Last Admin: 07/10/17 10:04 Dose: 100 mls/hr Levothyroxine Sodium (Synthroid -) 100 mcg PO DAILY@0700 [facility] Last Admin: 07/10/17 05:59 Dose: 100 mcg Melatonin (Melatonin) 10 mg PO HS [facility] Last Admin: 07/09/17 21:31 Dose: 10 mg Non-Formulary Medication (Fluticasone Furoate [Flonase Sensimist]) 9.9 ml NS DAILY [facility] Non-Formulary Medication (Mag Carb/Al Hydrox/Alginic Ac [Gaviscon Liquid]) 30 ml PO Q6H [facility] Ondansetron HCl (Zofran -) 4 mg PO Q6H PRN Pantoprazole Sodium (Protonix -) 40 mg PO BID [facility] Last Admin: 07/10/17 10:05 Dose: 40 mg Polyethylene Glycol (Miralax (For Daily Use) -) 17 gm PO BID [facility] Last Admin: 07/10/17 10:07 Dose: Not Given Potassium Chloride (K-Dur -) 10 meq PO BID [facility] Last Admin: 07/10/17 10:04 Dose: 10 meq Tiotropium [place] (Spiriva -) 1 puff IH DAILY [facility] Last Admin: 07/10/17 10:06 Dose: 1 puff Valsartan (Diovan -) 160 mg PO ONCE ONE Stop: 07/10/17 12:50 Valsartan (Diovan -) 320 mg PO DAILY [facility] - Objective Vital Signs: Vital Signs Temperature 98.1 F 07/10/17 09:56 Pulse Rate 77 07/10/17 09:56 Respiratory Rate 22 07/10/17 09:56 Blood Pressure 174/59 07/10/17 09:56 O2 Sat by Pulse Oximetry (%) 98 07/09/17 21:00 Constitutional: Yes: Well Nourished, Calm Eyes: Yes: WNL HENT: Yes: Nasal Congestion Neck: Yes: WNL Cardiovascular: Yes: Regular Rate and Rhythm, S1, S2 Respiratory: Yes: Rales (JARETH RALES WITH SCATTERED RHONCHI) Gastrointestinal: Yes: Normal Bowel Sounds, Soft Extremities: Yes: WNL Edema: No Labs: CBC, BMP 07/10/17 06:00 07/10/17 06:00 INR, PTT INR 1.21 (0.82-1.09) H 07/05/17 14:00 Problem List - Problems (1) COPD (chronic obstructive pulmonary disease) Code(s): J44.9 - CHRONIC OBSTRUCTIVE PULMONARY DISEASE, UNSPECIFIED Qualifiers : COPD type: COPD with acute exacerbation Qualified Code(s): J44.1 - Chronic obstructive pulmonary disease with (acute) exacerbation; J44.1 - Chronic obstructive pulmonary disease with (acute) exacerbation; J44.1 - Chronic obstructive pulmonary disease with (acute) exacerbation; J44.1 - Chronic obstructive pulmonary disease with (acute) exacerbation (2) HCAP (healthcare-associated pneumonia) Code(s): J18.9 - PNEUMONIA, UNSPECIFIED ORGANISM (3) Hypoxia Code(s): R09.02 - HYPOXEMIA (4) Pneumonia Code(s): J18.9 - PNEUMONIA, UNSPECIFIED ORGANISM Qualifiers: Pneumonia type: due to unspecified organism Laterality: unspecified laterality Lung location: unspecified part of lung Qualified Code(s) : J18.9 - Pneumonia, unspecified organism; J18.9 - Pneumonia, unspecified organism (5) Shortness of breath Code(s): R06.02 - SHORTNESS OF BREATH (6) Coronary artery disease Code(s): I25.10 - ATHSCL HEART DISEASE OF [place] CORONARY ARTERY W/O ANG PCTRS Qualifiers: Coronary Disease-Associated Artery/Lesion type: [place] artery [place] vs. transplanted heart: [place] heart Associated angina: without angina Qualified Code(s): I25.10 - Atherosclerotic heart disease of [place] coronary artery without angina pectoris; I25.10 - Atherosclerotic heart disease of [place] coronary artery without angina pectoris; I25.10 - Atherosclerotic heart disease of [place] coronary artery without angina pectoris (7) Dyspnea Code(s): R06.00 - DYSPNEA, UNSPECIFIED Qualifiers: Dyspnea type: dyspnea on exertion Qualified Code(s): R06.09 - Other forms of dyspnea; R06.09 - Other forms of dyspnea (8) Acute hypoxemic respiratory failure Code(s): J96.01 - ACUTE RESPIRATORY FAILURE WITH HYPOXIA (9) Hypothyroid Code(s): E03.9 - HYPOTHYROIDISM, UNSPECIFIED Qualifiers: Hypothyroidism type: acquired Qualified Code(s): E03.9 - Hypothyroidism, unspecified; E03.9 - Hypothyroidism, unspecified; E03.9 - Hypothyroidism, unspecified (10) Acute kidney injury Code(s): N17.9 - ACUTE KIDNEY FAILURE, UNSPECIFIED (11) Acute on chronic diastolic (congestive) heart failure Code(s): I50.33 - ACUTE ON CHRONIC DIASTOLIC (CONGESTIVE) HEART FAILURE (12) H/O heart artery stent Code(s): Z95.5 - PRESENCE OF CORONARY ANGIOPLASTY IMPLANT AND GRAFT (13) Hypertension Code(s): I10 - ESSENTIAL (PRIMARY) HYPERTENSION Qualifiers: Hypertension type: essential hypertension Qualified Code(s): I10 - Essential (primary) hypertension; I10 - Essential (primary) hypertension; I10 - Essential (primary) hypertension Assessment/Plan IMP ACUTE HYPOXEMIC RESPIRATORY FAILURE IMPROVING PNEUMONIA HAP COPD UTI WITH BACTEREMIA DIASTOLIC HF ASHD S/P STENT GERD ACUTE KIDNEY INJURY PLAN IV ANTIBIOTICS PER ID INHALED BRONCHODILATORS O2 MEDROL X 24HRS MONITOR LYES,RENAL FUNCTION DR JANSEN Problem List - Problems (1) COPD (chronic obstructive pulmonary disease) Code(s): J44.9 - CHRONIC OBSTRUCTIVE PULMONARY DISEASE, UNSPECIFIED Qualifiers : COPD type: COPD with acute exacerbation Qualified Code(s): J44.1 - Chronic obstructive pulmonary disease with (acute) exacerbation; J44.1 - Chronic obstructive pulmonary disease with (acute) exacerbation; J44.1 - Chronic obstructive pulmonary disease with (acute) exacerbation; J44.1 - Chronic obstructive pulmonary disease with (acute) exacerbation (2) HCAP (healthcare-associated pneumonia) Code(s): J18.9 - PNEUMONIA, UNSPECIFIED ORGANISM (3) Hypoxia Code(s): R09.02 - HYPOXEMIA (4) Pneumonia Code(s): J18.9 - PNEUMONIA, UNSPECIFIED ORGANISM Qualifiers: Pneumonia type: due to unspecified organism Laterality: unspecified laterality Lung location: unspecified part of lung Qualified Code(s) : J18.9 - Pneumonia, unspecified organism; J18.9 - Pneumonia, unspecified organism (5) Shortness of breath Code(s): R06.02 - SHORTNESS OF BREATH (6) Coronary artery disease Code(s): I25.10 - ATHSCL HEART DISEASE OF [place] CORONARY ARTERY W/O ANG PCTRS Qualifiers: Coronary Disease-Associated Artery/Lesion type: [place] artery [place] vs. transplanted heart: [place] heart Associated angina: without angina Qualified Code(s): I25.10 - Atherosclerotic heart disease of [place] coronary artery without angina pectoris; I25.10 - Atherosclerotic heart disease of [place] coronary artery without angina pectoris; I25.10 - Atherosclerotic heart disease of [place] coronary artery without angina pectoris (7) Dyspnea Code(s): R06.00 - DYSPNEA, UNSPECIFIED Qualifiers: Dyspnea type: dyspnea on exertion Qualified Code(s): R06.09 - Other forms of dyspnea; R06.09 - Other forms of dyspnea (8) Acute hypoxemic respiratory failure Code(s): J96.01 - ACUTE RESPIRATORY FAILURE WITH HYPOXIA (9) Hypothyroid Code(s): E03.9 - HYPOTHYROIDISM, UNSPECIFIED Qualifiers: Hypothyroidism type: acquired Qualified Code(s): E03.9 - Hypothyroidism, unspecified; E03.9 - Hypothyroidism, unspecified; E03.9 - Hypothyroidism, unspecified (10) Acute kidney injury Code(s): N17.9 - ACUTE KIDNEY FAILURE, UNSPECIFIED (11) Acute on chronic diastolic (congestive) heart failure Code(s): I50.33 - ACUTE ON CHRONIC DIASTOLIC (CONGESTIVE) HEART FAILURE (12) H/O heart artery stent Code(s): Z95.5 - PRESENCE OF CORONARY ANGIOPLASTY IMPLANT AND GRAFT (13) Hypertension Code(s): I10 - ESSENTIAL (PRIMARY) HYPERTENSION Qualifiers: Hypertension type: essential hypertension Qualified Code(s): I10 - Essential (primary) hypertension; I10 - Essential (primary) hypertension; I10 - Essential (primary) hypertension
--- NOTE | 2017-07-10 13:07 | PN ---
Progress Note, Physician Chief Complaint: some coughing and having to go to the bathroom multiple times in spite of antibiotics for Acute UTI. History of Present Illness: Patient with recent pneumonia on CT scan and persistent cough still has rales on physical exam. I spoke to Pulmonary MDand we will Rx with IV steroids for a few days.Dr. Ackerman has ordered Lasix today. Patient is urinating every few hours in spite of Rx for ESBL UTI so I will get consult. Pt also had swallow eval and there was no evidence of aspiration. The other issue is persistent hypochromic anemia so I will reorder Stool guiac and Fe, B12 and folate levels. - Current Medication List Current Medications: Active Medications Acetaminophen (Tylenol -) 650 mg PO Q4H PRN PRN Reason: FEVER OR PAIN Last Admin: 07/09/17 08:33 Dose: 650 mg Arformoterol Tartrate (Brovana (Restricted To Pulmonology/Resp) -) 1 amp NEB BID [facility] Aspirin (Asa -) 81 mg PO DAILY [facility] Last Admin: 07/10/17 10:05 Dose: 81 mg Atorvastatin Calcium (Lipitor -) 40 mg PO HS [facility] Last Admin: 07/09/17 21:30 Dose: 40 mg Cyanocobalamin (Vitamin B12 -) 1,000 mcg PO DAILY [facility] Last Admin: 07/10/17 10:05 Dose: 1,000 mcg Escitalopram Oxalate (Lexapro -) 20 mg PO DAILY [facility] Last Admin: 07/10/17 10:05 Dose: 20 mg Furosemide (Lasix -) 20 mg PO DAILY [facility] Guaifenesin (Robitussin -) 10 ml PO Q4H PRN PRN Reason: COUGH Last Admin: 07/08/17 12:45 Dose: 10 ml Heparin Sodium (Porcine) (Heparin -) 5,000 unit SQ Q8H-IV [facility] Last Admin: 07/10/17 10:04 Dose: 5,000 unit Ertapenem 1 gm/ Sodium (Chloride) 50 mls @ 100 mls/hr IVPB DAILY [facility] PRN Reason: Protocol Last Admin: 07/10/17 10:04 Dose: 100 mls/hr Levothyroxine Sodium (Synthroid -) 100 mcg PO DAILY@0700 [facility] Last Admin: 07/10/17 05:59 Dose: 100 mcg Melatonin (Melatonin) 10 mg PO HS [facility] Last Admin: 07/09/17 21:31 Dose: 10 mg Methylprednisolone Sodium Succinate (Solu-Medrol -) 40 mg IVPB Q6H-IV [facility] Non-Formulary Medication (Fluticasone Furoate [Flonase Sensimist]) 9.9 ml NS DAILY [facility] Non-Formulary Medication (Mag Carb/Al Hydrox/Alginic Ac [Gaviscon Liquid]) 30 ml PO Q6H [facility] Ondansetron HCl (Zofran -) 4 mg PO Q6H PRN Pantoprazole Sodium (Protonix -) 40 mg PO BID [facility] Last Admin: 07/10/17 10:05 Dose: 40 mg Polyethylene Glycol (Miralax (For Daily Use) -) 17 gm PO BID [facility] Last Admin: 07/10/17 10:07 Dose: Not Given Potassium Chloride (K-Dur -) 10 meq PO BID [facility] Last Admin: 07/10/17 10:04 Dose: 10 meq Tiotropium [place] (Spiriva -) 1 puff IH DAILY [facility] Last Admin: 07/10/17 10:06 Dose: 1 puff Valsartan (Diovan -) 160 mg PO ONCE ONE Stop: 07/10/17 12:50 Valsartan (Diovan -) 320 mg PO DAILY [facility] - Objective Vital Signs: Vital Signs Temperature 98.1 F 07/10/17 09:56 Pulse Rate 77 07/10/17 09:56 Respiratory Rate 22 07/10/17 09:56 Blood Pressure 174/59 07/10/17 09:56 O2 Sat by Pulse Oximetry (%) 98 07/09/17 21:00 Constitutional: Yes: Calm Eyes: Yes: Conjunctiva Clear Cardiovascular: Yes: Regular Rate and Rhythm Respiratory: Yes: Rales, Rhonchi (at both bases.) Gastrointestinal: Yes: Soft (Loose BM; not diarrhea.) Genitourinary: No: [place] Present Edema: No Neurological: Yes: Alert, Oriented Psychiatric: Yes: Other (anxious) Labs: CBC, BMP 07/10/17 06:00 07/10/17 06:00 INR, PTT INR 1.21 (0.82-1.09) H 07/05/17 14:00 - ....Imaging Chest X-ray: Report Reviewed Problem List - Problems (1) Anxiety about health Code(s): F41.8 - OTHER SPECIFIED ANXIETY DISORDERS (2) COPD (chronic obstructive pulmonary disease) Assessment/Plan: With acute exacerbation On Rx and seen by Pulmonary MD Code(s): J44.9 - CHRONIC OBSTRUCTIVE PULMONARY DISEASE, UNSPECIFIED Qualifiers : COPD type: COPD with acute exacerbation Qualified Code(s): J44.1 - Chronic obstructive pulmonary disease with (acute) exacerbation; J44.1 - Chronic obstructive pulmonary disease with (acute) exacerbation; J44.1 - Chronic obstructive pulmonary disease with (acute) exacerbation; J44.1 - Chronic obstructive pulmonary disease with (acute) exacerbation (3) Congestive cardiac failure Assessment/Plan: Has rales both bases and 1200 BNP; Dr. Ackerman started Lasix today. Code(s): I50.9 - HEART FAILURE, UNSPECIFIED Qualifiers: Congestive heart failure type: diastolic Congestive heart failure chronicity: chronic Qualified Code(s): I50.32 - Chronic diastolic ( congestive) heart failure; I50.32 - Chronic diastolic (congestive) heart failure ; I50.32 - Chronic diastolic (congestive) heart failure; I50.32 - Chronic diastolic (congestive) heart failure (4) Pneumonia Assessment/Plan: On Antibiotics and had previous CT scan chest showing infiltrate. Code(s): J18.9 - PNEUMONIA, UNSPECIFIED ORGANISM Qualifiers: Pneumonia type: due to unspecified organism Laterality: unspecified laterality Lung location: unspecified part of lung Qualified Code(s) : J18.9 - Pneumonia, unspecified organism; J18.9 - Pneumonia, unspecified organism (5) UTI (urinary tract infection) Assessment/Plan: ESBL E. Coli on C/S; on Rx Code(s): N39.0 - URINARY TRACT INFECTION, SITE NOT SPECIFIED (6) Iron (Fe) deficiency anemia Assessment/Plan: Will order stool guiac and anemia lab. Code(s): D50.9 - IRON DEFICIENCY ANEMIA, UNSPECIFIED
[2017-07-10] MEDS: methylPREDNISolone NA SUCC 40 MG/1 ML VIAL IVPB SCH ×3 (14:21→22:15)
[2017-07-10] MEDS: FUROSEMIDE 20 MG TABLET (FP) PO SCH (14:22)
[2017-07-10] MEDS: ARFORMOTEROL TARTRATE 15 MCG/2 ML VIAL NEB SCH ×2 (14:24→22:16)
--- NOTE | 2017-07-10 14:48 | PN ---
Progress Note (short form) - Note Progress Note: CC: s: bp rising today. I resumed her PO lasix this morning, but pt declined. o: Current Medications Acetaminophen (Tylenol -) 650 mg PO Q4H PRN PRN Reason: FEVER OR PAIN Last Admin: 07/09/17 08:33 Dose: 650 mg Arformoterol Tartrate (Brovana (Restricted To Pulmonology/Resp) -) 1 amp NEB BID [facility] Last Admin: 07/10/17 14:24 Dose: 1 amp Aspirin (Asa -) 81 mg PO DAILY [facility] Last Admin: 07/10/17 10:05 Dose: 81 mg Atorvastatin Calcium (Lipitor -) 40 mg PO HS [facility] Last Admin: 07/09/17 21:30 Dose: 40 mg Cyanocobalamin (Vitamin B12 -) 1,000 mcg PO DAILY [facility] Last Admin: 07/10/17 10:05 Dose: 1,000 mcg Escitalopram Oxalate (Lexapro -) 20 mg PO DAILY [facility] Last Admin: 07/10/17 10:05 Dose: 20 mg Furosemide (Lasix -) 20 mg PO DAILY [facility] Last Admin: 07/10/17 14:22 Dose: Not Given Guaifenesin (Robitussin -) 10 ml PO Q4H PRN PRN Reason: COUGH Last Admin: 07/08/17 12:45 Dose: 10 ml Heparin Sodium (Porcine) (Heparin -) 5,000 unit SQ Q8H-IV [facility] Last Admin: 07/10/17 10:04 Dose: 5,000 unit Ertapenem 1 gm/ Sodium (Chloride) 50 mls @ 100 mls/hr IVPB DAILY [facility] PRN Reason: Protocol Last Admin: 07/10/17 10:04 Dose: 100 mls/hr Levothyroxine Sodium (Synthroid -) 100 mcg PO DAILY@0700 [facility] Last Admin: 07/10/17 05:59 Dose: 100 mcg Melatonin (Melatonin) 10 mg PO HS [facility] Last Admin: 07/09/17 21:31 Dose: 10 mg Methylprednisolone Sodium Succinate (Solu-Medrol -) 40 mg IVPB Q6H-IV [facility] Last Admin: 07/10/17 14:21 Dose: 40 mg Non-Formulary Medication (Fluticasone Furoate [Flonase Sensimist]) 9.9 ml NS DAILY [facility] Non-Formulary Medication (Mag Carb/Al Hydrox/Alginic Ac [Gaviscon Liquid]) 30 ml PO Q6H [facility] Ondansetron HCl (Zofran -) 4 mg PO Q6H PRN Pantoprazole Sodium (Protonix -) 40 mg PO BID [facility] Last Admin: 07/10/17 10:05 Dose: 40 mg Polyethylene Glycol (Miralax (For Daily Use) -) 17 gm PO BID [facility] Last Admin: 07/10/17 10:07 Dose: Not Given Potassium Chloride (K-Dur -) 10 meq PO BID [facility] Last Admin: 07/10/17 10:04 Dose: 10 meq Tiotropium [place] (Spiriva -) 1 puff IH DAILY [facility] Last Admin: 07/10/17 10:06 Dose: 1 puff Valsartan (Diovan -) 320 mg PO DAILY [facility] Vital Signs - 24 hr 07/09/17 07/09/17 07/09/17 15:58 15:59 17:35 Temperature 98.0 F Pulse Rate 72 Respiratory 20 Rate Blood Pressure 160/76 153/71 158/63 O2 Sat by Pulse Oximetry (%) 07/09/17 07/10/17 07/10/17 21:00 06:17 09:00 Temperature 98.6 F 99 F Pulse Rate 69 76 Respiratory 20 20 Rate Blood Pressure 150/66 152/79 O2 Sat by Pulse 98 95 Oximetry (%) 07/10/17 07/10/17 09:56 14:27 Temperature 98.1 F Pulse Rate 77 75 Respiratory 22 Rate Blood Pressure 174/59 150/79 O2 Sat by Pulse Oximetry (%) Intake & Output 07/08/17 07/09/17 07/10/17 07/11/17 07:59 07:59 07:59 07:59 Intake Total 1195 1000 1000 280 Balance 1195 1000 1000 280 Weight 159 lb 9.6 oz 157 lb 5 oz nad no jvd rrr s1s2 no mrg diminshed air mov't, trace wheezes. bibasilar dullness. nl effort aaox3 no le e/c/c abd nt nd pos bs no jaundice diaphoresis CBC, BMP 07/10/17 06:00 07/10/17 06:00 ekg: possible ectopic atrial rhythm with short pr interval and pac's. borderline prolonged qt. no acute ischemic changes. echo 03/2017: nl lv/rv, mild ar/mr mibi 03/2017: nl mpi, nl lvef prior tele: sr cxr: progressive congestive and infiltrative findings. L> R. prominent mediastinum, weak insp effort. 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 sob: - initially did not appear to be 2/2 chf, IVF given when pt hypotensive. BP now improved. - on abx for pna, uti - mgm't of possible contribution from copd per pmd. - + pulmonary congestion s/p IVF, may be contributing to persistent dyspnea. Sx 's slightly improved with trial of po lasix. - 07/10: + sob worsening. Patient declined resuming po lasix this morning, but now willing to try. Will restart home po lasix, first dose now. Monitor for improvement in sob. monitor bmp, sx's tomorrow and reassess the need for diuresis. prolonged qt - now off levaquin, would avoid qt prolonging abx in setting of lexapro. lyte repletion prn. Possible residual PNA (JUAN LUIS)/UTI -on abx, symptomatically improving, pulm following copd: -mgm't per pmd/pulm h/o acute diastolic chf likely secondary to hypertensive emergency (04/19): - Initially, Likely slightly volume up after 1.5 L of fluid, but symptomatically improving. Planned to manage diuresis once infection stabilized and bp improved IVF now off. -recent echo and mibi unremarkable -Diuresis plan as above. monitor daily weights and volume status. chronic LE edema/venous insuff: -stable currently htn: -Initially bp's held for hypotension, now being added back on. - of note, bystolic stopped on prior admit due to 2/2 bradycardia, also with h/ o worsened edema with ccb - 07/10: bp suboptimal. Increasing diovan dose. cad s/p remote pci: -no recent angina or ischemia (03/20) -trop currently normal, no ekg changes -cont home regimen asa, statin, arb - persistent anemia, ok to hold ASA if needed.
[2017-07-10] MEDS ORDERED: FUROSEMIDE 20 MG TABLET (FP) PO ONE (17:30)
[2017-07-10] MEDS ORDERED: ARFORMOTEROL TARTRATE 15 MCG/2 ML VIAL NEB SCH (22:00)
[2017-07-10] MEDS: ATORVASTATIN CA 40 MG TABLET (FP) PO SCH (22:15)
[2017-07-10] MEDS: MELATONIN 5 MG TABLETS PO SCH (22:15)
[2017-07-10] MEDS: guaiFENesin 200 MG/10 ML 10 ML UNIT-DOSE CUPS PO PRN (22:17)
[2017-07-11] MEDS: HEPARIN NA (PORCINE) 5,000 UNITS/ML 1ML VIAL SQ SCH ×3 (03:06→17:44)
[2017-07-11] MEDS: methylPREDNISolone NA SUCC 40 MG/1 ML VIAL IVPB SCH ×4 (03:06→21:00)
[2017-07-11] MEDS: LEVOTHYROXINE NA 100 MCG TABLET (FP) PO SCH (06:23)
[2017-07-11 08:48] LABS: BASOPHIL 0.2 % (0-2.0); MCHC 31.5 g/dl (32.0-36.0); MEAN CELL VOLUME 73.1 fl (80-96); MEAN PLT VOLUME 8.8 fl (7.5-11.1); PLATELET COUNT 236 K/MM3 (134-434); RDW 19.9 % (11.6-15.6); WHITE BLOOD COUNT 6.9 K/mm3 (4.0-10.0)
[2017-07-11 09:03] LABS: ANION GAP 11 (8-16); CALCIUM 9.2 mg/dL (8.5-10.1); CO2 22 mmol/L (21-32); GLUCOSE,RANDOM 118 mg/dL (74-106)
[2017-07-11 09:09] LABS: CREATININE 0.9 mg/dL (0.55-1.02); FERRITIN 30.241 ng/ml (6.9-282.5)
[2017-07-11] MEDS ORDERED: PT OWN MED DRAWER 7, Y5N ONE (10:27)
[2017-07-11] MEDS: VALSARTAN 160 MG TABLET (UD) PO SCH (10:33)
[2017-07-11] MEDS: TIOTROPIUM BROMIDE 18 MCG/INH (DEVICE W/ 5 CAPSULES) IH SCH (10:33)
[2017-07-11] MEDS: ESCITALOPRAM OXALATE 20 MG TABLET (FP) PO SCH (10:33)
[2017-07-11] MEDS: CYANOCOBALAMIN 1,000 MCG TABLET (FP) PO SCH (10:33)
[2017-07-11] MEDS: PANTOPRAZOLE 40 MG TABLET (FP) PO SCH ×2 (10:33→22:07)
[2017-07-11] MEDS: FUROSEMIDE 20 MG TABLET (FP) PO SCH (10:33)
[2017-07-11] MEDS: ASPIRIN 81 MG CHEWABLE TABLETS PO SCH (10:33)
[2017-07-11] MEDS: POTASSIUM CHLORIDE TABS 10 MEQ TABLET.ER (FP) PO SCH ×2 (10:33→22:06)
[2017-07-11] MEDS: ERTAPENEM SODIUM 1 GM in SODIUM CHLORIDE 50 ML IVPB SCH (10:34)
[2017-07-11] MEDS: POLYETHYLENE GLYCOL 3350 119 GM BTL PO SCH ×2 (10:34→22:07)
[2017-07-11] MEDS: guaiFENesin 200 MG/10 ML 10 ML UNIT-DOSE CUPS PO PRN (10:38)
[2017-07-11] MEDS: ARFORMOTEROL TARTRATE 15 MCG/2 ML VIAL NEB SCH ×2 (11:17→22:15)
--- NOTE | 2017-07-11 11:40 | PN ---
Progress Note, Physician Chief Complaint: Still some coughing; fatigued. History of Present Illness: Patient with recurrent coughing due to pneumonia and COPD with acute exacerbation and ?component CHF is a little better with the addition of Lasix and IV steroids yesterday. Slept better. Still urinary frequency which was present BEFORE the addition of the diuretic yesterday. Another troubling issue is the persistent microcytic anemia with borderline ferritin and a stool negative guiac study today. ??Thalessmia issue also. Will get hematology consult. She is followed by Cardiology and Pulmonary MD's. - Current Medication List Current Medications: Active Medications Acetaminophen (Tylenol -) 650 mg PO Q4H PRN PRN Reason: FEVER OR PAIN Last Admin: 07/09/17 08:33 Dose: 650 mg Arformoterol Tartrate (Brovana (Restricted To Pulmonology/Resp) -) 1 amp NEB BID [facility] Last Admin: 07/11/17 11:17 Dose: 1 amp Aspirin (Asa -) 81 mg PO DAILY [facility] Last Admin: 07/11/17 10:33 Dose: 81 mg Atorvastatin Calcium (Lipitor -) 40 mg PO HS [facility] Last Admin: 07/10/17 22:15 Dose: 40 mg Cyanocobalamin (Vitamin B12 -) 1,000 mcg PO DAILY [facility] Last Admin: 07/11/17 10:33 Dose: 1,000 mcg Escitalopram Oxalate (Lexapro -) 20 mg PO DAILY [facility] Last Admin: 07/11/17 10:33 Dose: 20 mg Furosemide (Lasix -) 20 mg PO DAILY [facility] Last Admin: 07/11/17 10:33 Dose: 20 mg Guaifenesin (Robitussin -) 10 ml PO Q4H PRN PRN Reason: COUGH Last Admin: 07/11/17 10:38 Dose: 10 ml Heparin Sodium (Porcine) (Heparin -) 5,000 unit SQ Q8H-IV [facility] Last Admin: 07/11/17 10:34 Dose: 5,000 unit Ertapenem 1 gm/ Sodium (Chloride) 50 mls @ 100 mls/hr IVPB DAILY [facility] PRN Reason: Protocol Last Admin: 07/11/17 10:34 Dose: 100 mls/hr Levothyroxine Sodium (Synthroid -) 100 mcg PO DAILY@0700 [facility] Last Admin: 07/11/17 06:23 Dose: 100 mcg Melatonin (Melatonin) 10 mg PO HS [facility] Last Admin: 07/10/17 22:15 Dose: 10 mg Methylprednisolone Sodium Succinate (Solu-Medrol -) 40 mg IVPB Q6H-IV [facility] Last Admin: 07/11/17 10:32 Dose: 40 mg Non-Formulary Medication (Fluticasone Furoate [Flonase Sensimist]) 9.9 ml NS DAILY [facility] Non-Formulary Medication (Mag Carb/Al Hydrox/Alginic Ac [Gaviscon Liquid]) 30 ml PO Q6H [facility] Ondansetron HCl (Zofran -) 4 mg PO Q6H PRN Pantoprazole Sodium (Protonix -) 40 mg PO BID [facility] Last Admin: 07/11/17 10:33 Dose: 40 mg Polyethylene Glycol (Miralax (For Daily Use) -) 17 gm PO BID [facility] Last Admin: 07/11/17 10:34 Dose: Not Given Potassium Chloride (K-Dur -) 10 meq PO BID [facility] Last Admin: 07/11/17 10:33 Dose: 10 meq Tiotropium [place] (Spiriva -) 1 puff IH DAILY [facility] Last Admin: 07/11/17 10:33 Dose: 1 puff Valsartan (Diovan -) 320 mg PO DAILY [facility] Last Admin: 07/11/17 10:33 Dose: 320 mg - Objective Vital Signs: Vital Signs Temperature 98.6 F 07/11/17 10:30 Pulse Rate 63 07/11/17 11:17 Respiratory Rate 18 07/11/17 10:30 Blood Pressure 150/67 07/11/17 10:30 O2 Sat by Pulse Oximetry (%) 95 07/11/17 11:17 Constitutional: Yes: Anxious Eyes: Yes: Conjunctiva Clear Cardiovascular: Yes: Regular Rate and Rhythm Respiratory: Yes: Diminished, Rhonchi (at both bases but not as many rales today.) Gastrointestinal: Yes: Soft. No: Tenderness Genitourinary: No: Gallegos Present Edema: No Neurological: Yes: Alert, Oriented Labs: CBC, BMP 07/11/17 06:45 07/11/17 06:45 INR, PTT INR 1.21 (0.82-1.09) H 07/05/17 14:00 Problem List - Problems (1) COPD (chronic obstructive pulmonary disease) Assessment/Plan: Now on IV steroids also; still coughing Code(s): J44.9 - CHRONIC OBSTRUCTIVE PULMONARY DISEASE, UNSPECIFIED Qualifiers : COPD type: COPD with acute exacerbation Qualified Code(s): J44.1 - Chronic obstructive pulmonary disease with (acute) exacerbation; J44.1 - Chronic obstructive pulmonary disease with (acute) exacerbation; J44.1 - Chronic obstructive pulmonary disease with (acute) exacerbation; J44.1 - Chronic obstructive pulmonary disease with (acute) exacerbation (2) Anxiety about health Assessment/Plan: Continues in spite of SSRI and assurances. Code(s): F41.8 - OTHER SPECIFIED ANXIETY DISORDERS (3) Congestive cardiac failure Assessment/Plan: Dr. Ackerman added lasis yesterday and she has less rales today. Code(s): I50.9 - HEART FAILURE, UNSPECIFIED Qualifiers: Congestive heart failure type: diastolic Congestive heart failure chronicity: chronic Qualified Code(s): I50.32 - Chronic diastolic ( congestive) heart failure; I50.32 - Chronic diastolic (congestive) heart failure ; I50.32 - Chronic diastolic (congestive) heart failure; I50.32 - Chronic diastolic (congestive) heart failure (4) Pneumonia Assessment/Plan: On Antibiotics Code(s): J18.9 - PNEUMONIA, UNSPECIFIED ORGANISM Qualifiers: Pneumonia type: due to unspecified organism Laterality: unspecified laterality Lung location: unspecified part of lung Qualified Code(s) : J18.9 - Pneumonia, unspecified organism; J18.9 - Pneumonia, unspecified organism (5) UTI (urinary tract infection) Assessment/Plan: On Antibiotics for E. Coli ESBL infection Code(s): N39.0 - URINARY TRACT INFECTION, SITE NOT SPECIFIED (6) Iron (Fe) deficiency anemia Assessment/Plan: Ferritin borderline; await Iron level; ist stool guiac negative! Heme consult placed. Code(s): D50.9 - IRON DEFICIENCY ANEMIA, UNSPECIFIED
--- NOTE | 2017-07-11 12:23 | PN ---
Progress Note, Physician History of Present Illness: pulmonary alert,less dyspneic.+ cough. - Current Medication List Current Medications: Active Medications Acetaminophen (Tylenol -) 650 mg PO Q4H PRN PRN Reason: FEVER OR PAIN Last Admin: 07/09/17 08:33 Dose: 650 mg Arformoterol Tartrate (Brovana (Restricted To Pulmonology/Resp) -) 1 amp NEB BID [facility] Last Admin: 07/11/17 11:17 Dose: 1 amp Aspirin (Asa -) 81 mg PO DAILY [facility] Last Admin: 07/11/17 10:33 Dose: 81 mg Atorvastatin Calcium (Lipitor -) 40 mg PO HS [facility] Last Admin: 07/10/17 22:15 Dose: 40 mg Cyanocobalamin (Vitamin B12 -) 1,000 mcg PO DAILY [facility] Last Admin: 07/11/17 10:33 Dose: 1,000 mcg Escitalopram Oxalate (Lexapro -) 20 mg PO DAILY [facility] Last Admin: 07/11/17 10:33 Dose: 20 mg Furosemide (Lasix -) 20 mg PO DAILY [facility] Last Admin: 07/11/17 10:33 Dose: 20 mg Guaifenesin (Robitussin -) 10 ml PO Q4H PRN PRN Reason: COUGH Last Admin: 07/11/17 10:38 Dose: 10 ml Heparin Sodium (Porcine) (Heparin -) 5,000 unit SQ Q8H-IV [facility] Last Admin: 07/11/17 10:34 Dose: 5,000 unit Ertapenem 1 gm/ Sodium (Chloride) 50 mls @ 100 mls/hr IVPB DAILY [facility] PRN Reason: Protocol Last Admin: 07/11/17 10:34 Dose: 100 mls/hr Levothyroxine Sodium (Synthroid -) 100 mcg PO DAILY@0700 [facility] Last Admin: 07/11/17 06:23 Dose: 100 mcg Melatonin (Melatonin) 10 mg PO HS [facility] Last Admin: 07/10/17 22:15 Dose: 10 mg Methylprednisolone Sodium Succinate (Solu-Medrol -) 40 mg IVPB Q6H-IV [facility] Last Admin: 07/11/17 10:32 Dose: 40 mg Non-Formulary Medication (Fluticasone Furoate [Flonase Sensimist]) 9.9 ml NS DAILY [facility] Non-Formulary Medication (Mag Carb/Al Hydrox/Alginic Ac [Gaviscon Liquid]) 30 ml PO Q6H [facility] Ondansetron HCl (Zofran -) 4 mg PO Q6H PRN Pantoprazole Sodium (Protonix -) 40 mg PO BID [facility] Last Admin: 07/11/17 10:33 Dose: 40 mg Polyethylene Glycol (Miralax (For Daily Use) -) 17 gm PO BID [facility] Last Admin: 07/11/17 10:34 Dose: Not Given Potassium Chloride (K-Dur -) 10 meq PO BID [facility] Last Admin: 07/11/17 10:33 Dose: 10 meq Tiotropium [place] (Spiriva -) 1 puff IH DAILY [facility] Last Admin: 07/11/17 10:33 Dose: 1 puff Valsartan (Diovan -) 320 mg PO DAILY [facility] Last Admin: 07/11/17 10:33 Dose: 320 mg - Objective Vital Signs: Vital Signs Temperature 98.6 F 07/11/17 10:30 Pulse Rate 63 07/11/17 11:17 Respiratory Rate 18 07/11/17 10:30 Blood Pressure 150/67 07/11/17 10:30 O2 Sat by Pulse Oximetry (%) 95 07/11/17 11:17 Constitutional: Yes: Well Nourished, Calm Eyes: Yes: WNL HENT: Yes: WNL Neck: Yes: WNL Cardiovascular: Yes: Regular Rate and Rhythm, S1, S2 Respiratory: Yes: Rales (bibasilar crackles), Rhonchi (few scattered rhonchi) Gastrointestinal: Yes: Normal Bowel Sounds, Soft Extremities: Yes: WNL Edema: No Labs: CBC, BMP 07/11/17 06:45 07/11/17 06:45 INR, PTT INR 1.21 (0.82-1.09) H 07/05/17 14:00 Problem List - Problems (1) COPD (chronic obstructive pulmonary disease) Code(s): J44.9 - CHRONIC OBSTRUCTIVE PULMONARY DISEASE, UNSPECIFIED Qualifiers : COPD type: COPD with acute exacerbation Qualified Code(s): J44.1 - Chronic obstructive pulmonary disease with (acute) exacerbation; J44.1 - Chronic obstructive pulmonary disease with (acute) exacerbation; J44.1 - Chronic obstructive pulmonary disease with (acute) exacerbation; J44.1 - Chronic obstructive pulmonary disease with (acute) exacerbation (2) HCAP (healthcare-associated pneumonia) Code(s): J18.9 - PNEUMONIA, UNSPECIFIED ORGANISM (3) Hypoxia Code(s): R09.02 - HYPOXEMIA (4) Pneumonia Code(s): J18.9 - PNEUMONIA, UNSPECIFIED ORGANISM Qualifiers: Pneumonia type: due to unspecified organism Laterality: unspecified laterality Lung location: unspecified part of lung Qualified Code(s) : J18.9 - Pneumonia, unspecified organism; J18.9 - Pneumonia, unspecified organism (5) Shortness of breath Code(s): R06.02 - SHORTNESS OF BREATH (6) Coronary artery disease Code(s): I25.10 - ATHSCL HEART DISEASE OF FALSE [place]ASS CORONARY ARTERY W/O ANG PCTRS Qualifiers: Coronary Disease-Associated Artery/Lesion type: andreafski artery [place] vs. transplanted heart: andreafski heart Associated angina: without angina Qualified Code(s): I25.10 - Atherosclerotic heart disease of [place]reafski coronary artery without angina pectoris; I25.10 - Atherosclerotic heart disease of [place] coronary artery without angina pectoris; I25.10 - Atherosclerotic heart disease of [place] coronary artery without angina pectoris (7) Dyspnea Code(s): R06.00 - DYSPNEA, UNSPECIFIED Qualifiers: Dyspnea type: dyspnea on exertion Qualified Code(s): R06.09 - Other forms of dyspnea; R06.09 - Other forms of dyspnea (8) Acute hypoxemic respiratory failure Code(s): J96.01 - ACUTE RESPIRATORY FAILURE WITH HYPOXIA (9) Hypothyroid Code(s): E03.9 - HYPOTHYROIDISM, UNSPECIFIED Qualifiers: Hypothyroidism type: acquired Qualified Code(s): E03.9 - Hypothyroidism, unspecified; E03.9 - Hypothyroidism, unspecified; E03.9 - Hypothyroidism, unspecified (10) Acute kidney injury Code(s): N17.9 - ACUTE KIDNEY FAILURE, UNSPECIFIED (11) Acute on chronic diastolic (congestive) heart failure Code(s): I50.33 - ACUTE ON CHRONIC DIASTOLIC (CONGESTIVE) HEART FAILURE (12) H/O heart artery stent Code(s): Z95.5 - PRESENCE OF CORONARY ANGIOPLASTY IMPLANT AND GRAFT (13) Hypertension Code(s): I10 - ESSENTIAL (PRIMARY) HYPERTENSION Qualifiers: Hypertension type: essential hypertension Qualified Code(s): I10 - Essential (primary) hypertension; I10 - Essential (primary) hypertension; I10 - Essential (primary) hypertension Assessment/Plan IMP ACUTE HYPOXEMIC RESPIRATORY FAILURE IMPROVING PNEUMONIA HAP COPD UTI WITH BACTEREMIA DIASTOLIC HF ASHD S/P STENT GERD ACUTE KIDNEY INJURY PLAN IV ANTIBIOTICS PER ID INHALED BRONCHODILATORS O2 CONTINUE MEDROL MONITOR LYES,RENAL FUNCTION DR JANSEN Problem List - Problems (1) COPD (chronic obstructive pulmonary disease) Code(s): J44.9 - CHRONIC OBSTRUCTIVE PULMONARY DISEASE, UNSPECIFIED Qualifiers : COPD type: COPD with acute exacerbation Qualified Code(s): J44.1 - Chronic obstructive pulmonary disease with (acute) exacerbation; J44.1 - Chronic obstructive pulmonary disease with (acute) exacerbation; J44.1 - Chronic obstructive pulmonary disease with (acute) exacerbation; J44.1 - Chronic obstructive pulmonary disease with (acute) exacerbation (2) HCAP (healthcare-associated pneumonia) Code(s): J18.9 - PNEUMONIA, UNSPECIFIED ORGANISM (3) Hypoxia Code(s): R09.02 - HYPOXEMIA (4) Pneumonia Code(s): J18.9 - PNEUMONIA, UNSPECIFIED ORGANISM Qualifiers: Pneumonia type: due to unspecified organism Laterality: unspecified laterality Lung location: unspecified part of lung Qualified Code(s) : J18.9 - Pneumonia, unspecified organism; J18.9 - Pneumonia, unspecified organism (5) Shortness of breath Code(s): R06.02 - SHORTNESS OF BREATH (6) Coronary artery disease Code(s): I25.10 - ATHSCL HEART DISEASE OF [place] CORONARY ARTERY W/O ANG PCTRS Qualifiers: Coronary Disease-Associated Artery/Lesion type: andreafski artery [place] vs. transplanted heart: andreafski heart Associated angina: without angina Qualified Code(s): I25.10 - Atherosclerotic heart disease of [place] coronary artery without angina pectoris; I25.10 - Atherosclerotic heart disease of [place] coronary artery without angina pectoris; I25.10 - Atherosclerotic heart disease of [place] coronary artery without angina pectoris (7) Dyspnea Code(s): R06.00 - DYSPNEA, UNSPECIFIED Qualifiers: Dyspnea type: dyspnea on exertion Qualified Code(s): R06.09 - Other forms of dyspnea; R06.09 - Other forms of dyspnea (8) Acute hypoxemic respiratory failure Code(s): J96.01 - ACUTE RESPIRATORY FAILURE WITH HYPOXIA (9) Hypothyroid Code(s): E03.9 - HYPOTHYROIDISM, UNSPECIFIED Qualifiers: Hypothyroidism type: acquired Qualified Code(s): E03.9 - Hypothyroidism, unspecified; E03.9 - Hypothyroidism, unspecified; E03.9 - Hypothyroidism, unspecified (10) Acute kidney injury Code(s): N17.9 - ACUTE KIDNEY FAILURE, UNSPECIFIED (11) Acute on chronic diastolic (congestive) heart failure Code(s): I50.33 - ACUTE ON CHRONIC DIASTOLIC (CONGESTIVE) HEART FAILURE (12) H/O heart artery stent Code(s): Z95.5 - PRESENCE OF CORONARY ANGIOPLASTY IMPLANT AND GRAFT (13) Hypertension Code(s): I10 - ESSENTIAL (PRIMARY) HYPERTENSION Qualifiers: Hypertension type: essential hypertension Qualified Code(s): I10 - Essential (primary) hypertension; I10 - Essential (primary) hypertension; I10 - Essential (primary) hypertension
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
[2017-07-11] MEDS ORDERED: IRON SUCROSE INJECTION 100 MG in SODIUM CHLORIDE 95 ML IVPB ONE (15:45)
[2017-07-11] MEDS: ACETAMINOPHEN 325 MG TABLET (FP) PO PRN (18:50)
--- NOTE | 2017-07-11 20:11 | PN ---
Progress Note (short form) - Note Progress Note: CC: s: sob slightly improved after starting PO lasix yesterday, but still persists. o: Current Medications Acetaminophen (Tylenol -) 650 mg PO Q4H PRN PRN Reason: FEVER OR PAIN Last Admin: 07/11/17 18:50 Dose: 650 mg Arformoterol Tartrate (Brovana (Restricted To Pulmonology/Resp) -) 1 amp NEB BID [facility] Last Admin: 07/11/17 11:17 Dose: 1 amp Aspirin (Asa -) 81 mg PO DAILY [facility] Last Admin: 07/11/17 10:33 Dose: 81 mg Atorvastatin Calcium (Lipitor -) 40 mg PO HS [facility] Last Admin: 07/10/17 22:15 Dose: 40 mg Cyanocobalamin (Vitamin B12 -) 1,000 mcg PO DAILY [facility] Last Admin: 07/11/17 10:33 Dose: 1,000 mcg Escitalopram Oxalate (Lexapro -) 20 mg PO DAILY [facility] Last Admin: 07/11/17 10:33 Dose: 20 mg Furosemide (Lasix -) 20 mg PO DAILY [facility] Last Admin: 07/11/17 10:33 Dose: 20 mg Guaifenesin (Robitussin -) 10 ml PO Q4H PRN PRN Reason: COUGH Last Admin: 07/11/17 10:38 Dose: 10 ml Heparin Sodium (Porcine) (Heparin -) 5,000 unit SQ Q8H-IV [facility] Last Admin: 07/11/17 17:44 Dose: 5,000 unit Ertapenem 1 gm/ Sodium (Chloride) 50 mls @ 100 mls/hr IVPB DAILY [facility] PRN Reason: Protocol Last Admin: 07/11/17 10:34 Dose: 100 mls/hr Levothyroxine Sodium (Synthroid -) 100 mcg PO DAILY@0700 [facility] Last Admin: 07/11/17 06:23 Dose: 100 mcg Melatonin (Melatonin) 10 mg PO HS [facility] Last Admin: 07/10/17 22:15 Dose: 10 mg Methylprednisolone Sodium Succinate (Solu-Medrol -) 40 mg IVPB Q6H-IV [facility] Last Admin: 07/11/17 14:29 Dose: 40 mg Non-Formulary Medication (Fluticasone Furoate [Flonase Sensimist]) 9.9 ml NS DAILY [facility] Non-Formulary Medication (Mag Carb/Al Hydrox/Alginic Ac [Gaviscon Liquid]) 30 ml PO Q6H [facility] Ondansetron HCl (Zofran -) 4 mg PO Q6H PRN Pantoprazole Sodium (Protonix -) 40 mg PO BID [facility] Last Admin: 07/11/17 10:33 Dose: 40 mg Polyethylene Glycol (Miralax (For Daily Use) -) 17 gm PO BID [facility] Last Admin: 07/11/17 10:34 Dose: Not Given Potassium Chloride (K-Dur -) 10 meq PO BID [facility] Last Admin: 07/11/17 10:33 Dose: 10 meq Tiotropium [place] (Spiriva -) 1 puff IH DAILY [facility] Last Admin: 07/11/17 10:33 Dose: 1 puff Valsartan (Diovan -) 320 mg PO DAILY [facility] Last Admin: 07/11/17 10:33 Dose: 320 mg Vital Signs - 24 hr 07/10/17 07/11/17 07/11/17 20:48 06:00 10:30 Temperature 97.8 F 97.7 F 98.6 F Pulse Rate 70 70 72 Respiratory 18 18 18 Rate Blood Pressure 158/64 136/90 150/67 O2 Sat by Pulse 98 97 Oximetry (%) 07/11/17 07/11/17 07/11/17 11:17 16:05 17:58 Temperature 97.6 F Pulse Rate 63 74 77 Respiratory 18 18 Rate Blood Pressure 146/59 156/66 O2 Sat by Pulse 95 Oximetry (%) 07/11/17 18:00 Temperature 97.7 F Pulse Rate Respiratory Rate Blood Pressure O2 Sat by Pulse Oximetry (%) Intake & Output 07/09/17 07/10/17 07/11/17 07/12/17 07:59 07:59 07:59 07:59 Intake Total 1000 1000 920 945 Balance 1000 1000 920 945 Weight 157 lb 5 oz 164 lb 1.6 oz nad no jvd rrr s1s2 no mrg diminshed air mov't, trace wheezes. bibasilar dullness. nl effort aaox3 no le e/c/c abd nt nd pos bs no jaundice diaphoresis CBC, BMP 07/11/17 06:45 07/11/17 06:45 ekg: possible ectopic atrial rhythm with short pr interval and pac's. borderline prolonged qt. no acute ischemic changes. echo 03/2017: nl lv/rv, mild ar/mr mibi 03/2017: nl mpi, nl lvef prior tele: sr cxr: progressive congestive and infiltrative findings. L> R. prominent mediastinum, weak insp effort. 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 sob: - initially did not appear to be 2/2 chf, IVF given when pt hypotensive. BP now improved. - on abx for pna, uti - mgm't of possible contribution from copd per pmd. - + pulmonary congestion s/p IVF, may be contributing to persistent dyspnea. Sx 's slightly improved with trial of po lasix. - 07/11: s/p trial of PO lasix yesterday. Sob slightly improved, bmp stable. Monitor bmp tomorrow and reassess the need for diuresis. If remains question of contribution from pna vs. congestion, can consider chest CT to clarify. prolonged qt - now off levaquin, would avoid qt prolonging abx in setting of lexapro. lyte repletion prn. Possible residual PNA (JUAN LUIS)/UTI -on abx, symptomatically improving, pulm following copd: -mgm't per pmd/pulm h/o acute diastolic chf likely secondary to hypertensive emergency (04/19): - Initially, Likely slightly volume up after 1.5 L of fluid, but symptomatically improving. Planned to manage diuresis once infection stabilized and bp improved IVF now off. -recent echo and mibi unremarkable -Diuresis plan as above. monitor daily weights and volume status. chronic LE edema/venous insuff: -stable currently htn: -Initially bp's held for hypotension, now being added back on. - of note, bystolic stopped on prior admit due to 2/2 bradycardia, also with h/ o worsened edema with ccb - 07/11: controlled on valsartan. will add back low dose hydralazine 25 bid and con't to monitor. cad s/p remote pci: -no recent angina or ischemia (03/20) -trop currently normal, no ekg changes -cont home regimen asa, statin, arb - persistent anemia, ok to hold ASA if needed.
[2017-07-11] MEDS: ATORVASTATIN CA 40 MG TABLET (FP) PO SCH (22:06)
[2017-07-11] MEDS: MELATONIN 5 MG TABLETS PO SCH (22:16)
[2017-07-12] MEDS: HEPARIN NA (PORCINE) 5,000 UNITS/ML 1ML VIAL SQ SCH ×3 (01:16→17:31)
[2017-07-12] MEDS: methylPREDNISolone NA SUCC 40 MG/1 ML VIAL IVPB SCH ×4 (03:20→20:47)
[2017-07-12] MEDS: LEVOTHYROXINE NA 100 MCG TABLET (FP) PO SCH (06:06)
[2017-07-12 07:44] LABS: BASOPHIL 0.3 % (0-2.0); MCH 22.8 pg (25.7-33.7); MCHC 31.2 g/dl (32.0-36.0); MEAN CELL VOLUME 73.1 fl (80-96); MEAN PLT VOLUME 8.6 fl (7.5-11.1); NEUTROPHILS 82.2 % (42.8-82.8); PLATELET COUNT 286 K/MM3 (134-434); RDW 19.8 % (11.6-15.6); WHITE BLOOD COUNT 13.2 K/mm3 (4.0-10.0)
[2017-07-12 08:10] LABS: ALBUMIN 2.4 g/dl (3.4-5.0); ALK PHOS 163 U/L (45-117); ANION GAP 9 (8-16); BILIRUBIN,TOTAL 0.2 mg/dL (0.2-1.0); CALCIUM 9.4 mg/dL (8.5-10.1); CO2 23 mmol/L (21-32); CREATININE 1.1 mg/dL (0.55-1.02); GLUCOSE,RANDOM 100 mg/dL (74-106); LDH 205 U/L (84-246); MAGNESIUM 2.2 mg/dL (1.8-2.4); SGOT/AST 43 U/L (15-37); SGPT/ALT 50 U/L (12-78); TOT PROT 5.3 g/dl (6.4-8.2)
[2017-07-12 08:27] LABS: ANISOCYTOSIS 1+; HYPOCHROMIA FEW; POLYCHROMASIA 1+; TARGET CELLS 1+
--- NOTE | 2017-07-12 09:32 | PN ---
Progress Note (short form) - Note Progress Note: Patient is still coughing off and on nite and day. Given IV Steroids and IV Lasix for 3 days with no clinical improvement. Bun and Creatinine have risen due to these treatments. ?further W/U like repeat CT of Chest VS Bronchoscopy needed. Also low Fe and given IV Iron by Heme yesterday and if anything Hb fell to 7.5GM. Endoscopy may need to be reconsidered. On Exam: Sitting at bedside Vital Signs Temp 96.4 F L 07/12/17 06:00 Pulse 74 07/12/17 06:00 Resp 18 07/12/17 06:00 BP 160/81 07/12/17 06:00 Pulse Ox 99 07/11/17 21:00 Intake & Output 07/11/17 07/11/17 07/12/17 11:59 23:59 11:59 Intake Total 250 945 210 Balance 250 945 210 Weight 159 lb 14.4 oz 163 lb 12.8 oz Intake: IV 10 10 LFA 10 10 IVPB 215 Oral 250 720 200 Other: Voiding Method Toilet Toilet Toilet # Unmeasured Voids Void 1 2 2 Bowel Movement Yes No # Bowel Movements 1 Weight Measurement Method Built in Bedscale Built in Bedscale Alert Coughing off and on Chest :Rales L>R Cor Reg. Ext: No edema Abnormal Lab Results 07/11/17 07/11/17 07/12/17 06:45 06:45 06:45 WBC 13.2 H D RBC 3.28 L Hgb 7.5 L Hct 24.0 L MCV 73.1 L MCH 22.8 L MCHC 31.2 L RDW 19.8 H Retic Count Chloride 108 H BUN 23 H Creatinine Random Glucose 118 H D Iron 17 L AST Alkaline Phosphatase Total Protein Albumin Vitamin B12 2311 H 07/12/17 07/12/17 06:45 06:45 WBC RBC Hgb Hct MCV MCH MCHC RDW Retic Count 2.36 H Chloride 110 H BUN 39 H D Creatinine 1.1 H D Random Glucose Iron AST 43 H D Alkaline Phosphatase 163 H Total Protein 5.3 L Albumin 2.4 L Vitamin B12 IMP: COPD with acute exacerbation Pneumonia Pulmonary Atelectasis Iron def anemia LIver Mass Plan: F/U CBC Revisit GI MD Pulmonary evaluation re: persistent cough Problem List - Problems (1) COPD (chronic obstructive pulmonary disease) Code(s): J44.9 - CHRONIC OBSTRUCTIVE PULMONARY DISEASE, UNSPECIFIED Qualifiers : COPD type: COPD with acute exacerbation Qualified Code(s): J44.1 - Chronic obstructive pulmonary disease with (acute) exacerbation; J44.1 - Chronic obstructive pulmonary disease with (acute) exacerbation; J44.1 - Chronic obstructive pulmonary disease with (acute) exacerbation; J44.1 - Chronic obstructive pulmonary disease with (acute) exacerbation (2) Anxiety about health Code(s): F41.8 - OTHER SPECIFIED ANXIETY DISORDERS (3) Congestive cardiac failure Code(s): I50.9 - HEART FAILURE, UNSPECIFIED Qualifiers: Congestive heart failure type: diastolic Congestive heart failure chronicity: chronic Qualified Code(s): I50.32 - Chronic diastolic ( congestive) heart failure; I50.32 - Chronic diastolic (congestive) heart failure ; I50.32 - Chronic diastolic (congestive) heart failure; I50.32 - Chronic diastolic (congestive) heart failure (4) Pneumonia Code(s): J18.9 - PNEUMONIA, UNSPECIFIED ORGANISM Qualifiers: Pneumonia type: due to unspecified organism Laterality: unspecified laterality Lung location: unspecified part of lung Qualified Code(s) : J18.9 - Pneumonia, unspecified organism; J18.9 - Pneumonia, unspecified organism (5) UTI (urinary tract infection) Code(s): N39.0 - URINARY TRACT INFECTION, SITE NOT SPECIFIED (6) Iron (Fe) deficiency anemia Code(s): D50.9 - IRON DEFICIENCY ANEMIA, UNSPECIFIED
[2017-07-12] MEDS ORDERED: FUROSEMIDE 40 MG/4 ML INJECTABLE VIAL IVPUSH SCH (10:00)
[2017-07-12] MEDS: PANTOPRAZOLE 40 MG TABLET (FP) PO SCH ×2 (10:19→22:50)
[2017-07-12] MEDS: ESCITALOPRAM OXALATE 20 MG TABLET (FP) PO SCH (10:19)
[2017-07-12] MEDS: ASPIRIN 81 MG CHEWABLE TABLETS PO SCH (10:19)
[2017-07-12] MEDS: CYANOCOBALAMIN 1,000 MCG TABLET (FP) PO SCH (10:19)
[2017-07-12] MEDS: ERTAPENEM SODIUM 1 GM in SODIUM CHLORIDE 50 ML IVPB SCH (10:20)
[2017-07-12] MEDS: VALSARTAN 160 MG TABLET (UD) PO SCH (10:20)
[2017-07-12] MEDS: POTASSIUM CHLORIDE TABS 10 MEQ TABLET.ER (FP) PO SCH ×2 (10:20→22:50)
[2017-07-12] MEDS: TIOTROPIUM BROMIDE 18 MCG/INH (DEVICE W/ 5 CAPSULES) IH SCH (10:21)
--- NOTE | 2017-07-12 10:28 | PN ---
Physical Exam: CONSULT F/u: INFECTIOUS DISEASE SUBJECTIVE: Afebrile overnight. Still coughing with SOB one exertion, no improvement. No CP, no fevers/chills OBJECTIVE: Vital Signs Period Temp Pulse Resp BP Sys/Rios Pulse Ox Last 24 Hr 96.4 F-98.6 F 63-77 18-18 146-160/59-81 95-99 GEN: AAOx3, NAD, lying in bed HEENT: PERRLA, EOMi CV: Irregularly Irregular rhythm LUNG: Crackles bilaterally ABD: Soft, NT, ND MSK: No edema Active Medications Generic Name Dose Route Start Last Admin Trade Name Freq PRN Reason Stop Dose Admin Acetaminophen 650 mg 07/05/17 15:58 07/11/17 18:50 Tylenol - PO 650 mg Q4H PRN Administration FEVER OR PAIN Arformoterol Tartrate 1 amp 07/10/17 13:00 07/11/17 22:15 Brovana (Restricted To Pulmonology/Resp) - NEB 1 amp BID [facility] Administration Aspirin 81 mg 07/06/17 10:00 07/12/17 10:19 Asa - PO 81 mg DAILY [facility] Administration Atorvastatin Calcium 40 mg 07/05/17 22:00 07/11/17 22:06 Lipitor - PO 40 mg HS [facility] Administration Cyanocobalamin 1,000 mcg 07/06/17 10:00 07/12/17 10:19 Vitamin B12 - PO 1,000 mcg DAILY [facility] Administration Escitalopram Oxalate 20 mg 07/06/17 10:00 07/12/17 10:19 Lexapro - PO 20 mg DAILY [facility] Administration Furosemide 20 mg 07/12/17 10:00 07/12/17 10:20 Lasix Injection - IVPUSH 20 mg DAILY [facility] Administration Guaifenesin 10 ml 07/08/17 09:15 07/11/17 10:38 Robitussin - PO 10 ml Q4H PRN Administration COUGH Heparin Sodium (Porcine) 5,000 unit 07/05/17 18:00 07/12/17 10:20 Heparin - SQ 5,000 unit Q8H-IV [facility] Administration Ertapenem 1 gm/ Sodium 50 mls @ 100 mls/hr 07/08/17 14:15 07/12/17 10:20 Chloride IVPB 100 mls/hr DAILY [facility] Administration Protocol Levothyroxine Sodium 100 mcg 07/06/17 07:00 07/12/17 06:06 Synthroid - PO 100 mcg DAILY@0700 [facility] Administration Melatonin 10 mg 07/05/17 22:00 07/11/17 22:16 Melatonin PO 10 mg HS [facility] Administration Methylprednisolone Sodium Succinate 40 mg 07/10/17 13:00 07/12/17 10:19 Solu-Medrol - IVPB 40 mg Q6H-IV [facility] Administration Non-Formulary Medication 9.9 ml 07/06/17 10:00 Fluticasone Furoate [Flonase Sensimist] NS DAILY [facility] Non-Formulary Medication 30 ml 07/05/17 16:00 Mag Carb/Al Hydrox/Alginic Ac [Gaviscon Liquid] PO Q6H [facility] Ondansetron HCl 4 mg 07/07/17 01:50 Zofran - PO Q6H PRN Pantoprazole Sodium 40 mg 07/05/17 22:00 07/12/17 10:19 Protonix - PO 40 mg BID [facility] Administration Polyethylene Glycol 17 gm 07/05/17 22:00 07/11/17 22:07 Miralax (For Daily Use) - PO 17 grams BID [facility] Administration Potassium Chloride 10 meq 07/06/17 22:00 07/12/17 10:20 K-Dur - PO 10 meq BID [facility] Administration Tiotropium [place] 1 puff 07/07/17 13:00 07/12/17 10:21 Spiriva - IH 1 puff DAILY [facility] Administration Valsartan 320 mg 07/11/17 10:00 07/12/17 10:20 Diovan - PO 320 mg DAILY [facility] Administration Laboratory Last Values WBC 13.2 K/mm3 (4.0-10.0) H D 07/12/17 06:45 RBC 3.28 M/mm3 (3.60-5.2) L 07/12/17 06:45 Hgb 7.5 GM/dL (10.7-15.3) L 07/12/17 06:45 Hct 24.0 % (32.4-45.2) L 07/12/17 06:45 MCV 73.1 fl (80-96) L 07/12/17 06:45 MCH 22.8 pg (25.7-33.7) L 07/12/17 06:45 MCHC 31.2 g/dl (32.0-36.0) L 07/12/17 06:45 RDW 19.8 % (11.6-15.6) H 07/12/17 06:45 Plt Count 286 K/MM3 (134-434) D 07/12/17 06:45 MPV 8.6 fl (7.5-11.1) 07/12/17 06:45 Total Counted 100 07/08/17 05:15 Neutrophils % 82.2 % (42.8-82.8) 07/12/17 06:45 Neutrophils % (Manual) 68 % (42.8-82.8) 07/08/17 05:15 Lymphocytes % 10.4 % (8-40) 07/12/17 06:45 Lymphocytes % (Manual) 17 % (8-40) 07/08/17 05:15 Monocytes % 7.1 % (3.8-10.2) D 07/12/17 06:45 Monocytes % (Manual) 12 % (3.8-10.2) H 07/08/17 05:15 Eosinophils % 0.0 % (0-4.5) 07/12/17 06:45 Eosinophils % (Manual) 3 % (0-4.5) 07/08/17 05:15 Basophils % 0.3 % (0-2.0) 07/12/17 06:45 Hypochromia Few 07/12/17 06:45 Platelet Estimate Adequate (NORMAL) 07/06/17 06:15 Polychromasia 1+ 07/12/17 06:45 Anisocytosis 1+ 07/12/17 06:45 Microcytosis 1+ 07/05/17 14:00 Macrocytosis Few 07/05/17 14:00 Target Cells 1+ 07/12/17 06:45 Tear Drop Cells 1+ 07/05/17 14:00 Ovalocytes 1+ 07/05/17 14:00 Fragmented RBCs 1+ 07/05/17 14:00 ESR 55 mm/hr (0-30) H 07/07/17 05:10 Retic Count 2.36 % (0.5-1.5) H 07/12/17 06:45 PT with INR 13.40 SEC (9.98-11.88) H 07/05/17 14:00 INR 1.21 (0.82-1.09) H 07/05/17 14:00 PTT (Actin FS) 28.5 SECONDS (26.9-34.4) 07/05/17 14:00 VBG pH 7.45 (7.32-7.42) H 07/05/17 14:00 POC VBG pCO2 35.7 mmHg (38-52) L 07/05/17 14:00 POC VBG pO2 33.3 mmHg (28-48) 07/05/17 14:00 Mixed VBG HCO3 24.6 meq/L (19-25) 07/05/17 14:00 Sodium 142 mmol/L (136-145) 07/12/17 06:45 Potassium 4.7 mmol/L (3.5-5.1) 07/12/17 06:45 Chloride 110 mmol/L (98-107) H 07/12/17 06:45 Carbon Dioxide 23 mmol/L (21-32) 07/12/17 06:45 Anion Gap 9 (8-16) 07/12/17 06:45 BUN 39 mg/dL (7-18) H D 07/12/17 06:45 Creatinine 1.1 mg/dL (0.55-1.02) H D 07/12/17 06:45 Creat Clearance w eGFR 47.43 (>60) 07/12/17 06:45 Random Glucose 100 mg/dL (74-106) 07/12/17 06:45 Lactic Acid 1.1 mmol/L (0.4-2.0) 07/05/17 14:00 Calcium 9.4 mg/dL (8.5-10.1) 07/12/17 06:45 Phosphorus 2.5 mg/dL (2.5-4.9) 07/06/17 06:15 Magnesium 2.2 mg/dL (1.8-2.4) D 07/12/17 06:45 Iron 17 ug/dL (27-139) L 07/11/17 06:45 Ferritin 30.241 ng/ml (6.9-282.5) 07/11/17 06:45 Total Bilirubin 0.2 mg/dL (0.2-1.0) D 07/12/17 06:45 AST 43 U/L (15-37) H D 07/12/17 06:45 ALT 50 U/L (12-78) D 07/12/17 06:45 Alkaline Phosphatase 163 U/L (45-117) H 07/12/17 06:45 LD Total 205 U/L (84-246) 07/12/17 06:45 Creatine Kinase 77 IU/L (26-192) 07/05/17 14:00 Troponin I 0.02 ng/ml (0.00-0.05) 07/05/17 14:00 B-Natriuretic Peptide 1278.30 pg/ml (5-450) H 07/05/17 14:00 Total Protein 5.3 g/dl (6.4-8.2) L 07/12/17 06:45 Albumin 2.4 g/dl (3.4-5.0) L 07/12/17 06:45 Vitamin B12 2311 pg/ml (180-914) H 07/11/17 06:45 Serum Folate 15 ng/ml (3.1-17.5) D 07/11/17 06:45 Urine Color Keri 07/05/17 15:05 Urine Appearance Turbid 07/05/17 15:05 Urine pH 5.0 (5.0-8.0) 07/05/17 15:05 Ur Specific [place] 1.020 (1.005-1.025) 07/05/17 15:05 Urine Protein 2+ (NEGATIVE) H 07/05/17 15:05 Urine Glucose (UA) Negative (NEGATIVE) 07/05/17 15:05 Urine Ketones Negative (NEGATIVE) 07/05/17 15:05 Urine Blood 1+ (NEGATIVE) H 07/05/17 15:05 Urine Nitrite Negative (NEGATIVE) 07/05/17 15:05 Urine Bilirubin Negative (NEGATIVE) 07/05/17 15:05 Urine Urobilinogen Negative mg/dL (0.2-1.0) 07/05/17 15:05 Urine RBC 162 /hpf (0-3) 07/05/17 15:05 Urine WBC 2935 /hpf (3-5) 07/05/17 15:05 Urine Mucus Few 07/05/17 15:05 Stool Occult Blood Negative (NEGATIVE) 07/11/17 09:37 Random Vancomycin 11.949 ug/ml 07/07/17 09:15 Blood Type A POSITIVE 07/12/17 06:45 Antibody Screen Negative 07/12/17 06:45 ASSESSMENT/PLAN: Ms. Dorantes is an 81yo F with PMHx of recurrent PNA due to microaspiration from GERD w/ laryngeal reflux, recently admitted for PNA who presented with two days of [employer] cough, SOB, and new onset dysuria/frequency. She is admitted for sepsis 2/ 2 UTI and HAP # ESBL UTI - +Urine cultures - Day 4 Ertapenem, continue for 3 more days for total 7 day coverage Discussed w/ Dr Abby Anglin MD - PGY1, Infectious Disease Visit type - Emergency Visit Emergency Visit: No - New Patient This patient is new to me today: No - Critical Care Critical Care patient: No - Discharge Referral Referred to [facility] Med P.C.: No
[2017-07-12] MEDS: POLYETHYLENE GLYCOL 3350 119 GM BTL PO SCH ×2 (10:31→22:53)
[2017-07-12] MEDS: ARFORMOTEROL TARTRATE 15 MCG/2 ML VIAL NEB SCH ×2 (10:35→22:30)
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
--- NOTE | 2017-07-12 11:03 | PN ---
Progress Note (short form) - Note Progress Note: Still with congested cough and AKBAR. No CP. No acute events overnight. Intake & Output 07/09/17 07/10/17 07/11/17 07/12/17 23:59 23:59 23:59 23:59 Intake Total 5243 318 4224 210 Balance 5818 816 6316 210 Weight 157 lb 5 oz 160 lb 4.8 oz 159 lb 14.4 oz 163 lb 12.8 oz Last Vital Signs Temp Pulse Resp BP Pulse Ox 96.4 F L 74 18 160/81 99 07/12/17 06:00 07/12/17 06:00 07/12/17 06:00 07/12/17 06:00 07/11/17 21:00 Active Medications Acetaminophen (Tylenol -) 650 mg PO Q4H PRN PRN Reason: FEVER OR PAIN Last Admin: 07/11/17 18:50 Dose: 650 mg Arformoterol Tartrate (Brovana (Restricted To Pulmonology/Resp) -) 1 amp NEB BID [facility] Last Admin: 07/11/17 22:15 Dose: 1 amp Aspirin (Asa -) 81 mg PO DAILY [facility] Last Admin: 07/12/17 10:19 Dose: 81 mg Atorvastatin Calcium (Lipitor -) 40 mg PO HS [facility] Last Admin: 07/11/17 22:06 Dose: 40 mg Cyanocobalamin (Vitamin B12 -) 1,000 mcg PO DAILY [facility] Last Admin: 07/12/17 10:19 Dose: 1,000 mcg Escitalopram Oxalate (Lexapro -) 20 mg PO DAILY [facility] Last Admin: 07/12/17 10:19 Dose: 20 mg Furosemide (Lasix Injection -) 20 mg IVPUSH DAILY [facility] Last Admin: 07/12/17 10:20 Dose: 20 mg Guaifenesin (Robitussin -) 10 ml PO Q4H PRN PRN Reason: COUGH Last Admin: 07/11/17 10:38 Dose: 10 ml Heparin Sodium (Porcine) (Heparin -) 5,000 unit SQ Q8H-IV [facility] Last Admin: 07/12/17 10:20 Dose: 5,000 unit Hydralazine HCl (Apresoline -) 25 mg PO BID [facility] Ertapenem 1 gm/ Sodium (Chloride) 50 mls @ 100 mls/hr IVPB DAILY [facility] PRN Reason: Protocol Last Admin: 07/12/17 10:20 Dose: 100 mls/hr Levothyroxine Sodium (Synthroid -) 100 mcg PO DAILY@0700 [facility] Last Admin: 07/12/17 06:06 Dose: 100 mcg Melatonin (Melatonin) 10 mg PO HS [facility] Last Admin: 07/11/17 22:16 Dose: 10 mg Methylprednisolone Sodium Succinate (Solu-Medrol -) 40 mg IVPB Q6H-IV [facility] Last Admin: 07/12/17 10:19 Dose: 40 mg Non-Formulary Medication (Fluticasone Furoate [Flonase Sensimist]) 9.9 ml NS DAILY [facility] Non-Formulary Medication (Mag Carb/Al Hydrox/Alginic Ac [Gaviscon Liquid]) 30 ml PO Q6H [facility] Ondansetron HCl (Zofran -) 4 mg PO Q6H PRN Pantoprazole Sodium (Protonix -) 40 mg PO BID [facility] Last Admin: 07/12/17 10:19 Dose: 40 mg Polyethylene Glycol (Miralax (For Daily Use) -) 17 gm PO BID [facility] Last Admin: 07/12/17 10:31 Dose: Not Given Potassium Chloride (K-Dur -) 10 meq PO BID [facility] Last Admin: 07/12/17 10:20 Dose: 10 meq Tiotropium [place] (Spiriva -) 1 puff IH DAILY [facility] Last Admin: 07/12/17 10:21 Dose: 1 puff Valsartan (Diovan -) 320 mg PO DAILY [facility] Last Admin: 07/12/17 10:20 Dose: 320 mg Constitutional: Yes: NAD Eyes: Yes: WNL HENT: Yes: WNL Neck: Yes: WNL Cardiovascular: Yes: Regular Rate and Rhythm, S1, S2 Respiratory: Yes: Bibasilar crackles/Rhonchi Gastrointestinal: Yes: Normal Bowel Sounds, Soft Extremities: Yes: WNL Edema: No Lab: Laboratory Results - last 24 hr 07/11/17 07/12/17 07/12/17 06:45 06:45 06:45 WBC 13.2 H D RBC 3.28 L Hgb 7.5 L Hct 24.0 L MCV 73.1 L MCH 22.8 L MCHC 31.2 L RDW 19.8 H Plt Count 286 D MPV 8.6 Neutrophils % 82.2 Lymphocytes % 10.4 Monocytes % 7.1 D Eosinophils % 0.0 Basophils % 0.3 Hypochromia Few Polychromasia 1+ Anisocytosis 1+ Target Cells 1+ Retic Count 2.36 H Sodium Potassium Chloride Carbon Dioxide Anion Gap BUN Creatinine Creat Clearance w eGFR Random Glucose Calcium Magnesium Iron 17 L Total Bilirubin AST ALT Alkaline Phosphatase LD Total Total Protein Albumin Blood Type Antibody Screen 07/12/17 07/12/17 06:45 06:45 WBC RBC Hgb Hct MCV MCH MCHC RDW Plt Count MPV Neutrophils % Lymphocytes % Monocytes % Eosinophils % Basophils % Hypochromia Polychromasia Anisocytosis Target Cells Retic Count Sodium 142 Potassium 4.7 Chloride 110 H Carbon Dioxide 23 Anion Gap 9 BUN 39 H D Creatinine 1.1 H D Creat Clearance w eGFR 47.43 Random Glucose 100 Calcium 9.4 Magnesium 2.2 D Iron Total Bilirubin 0.2 D AST 43 H D ALT 50 D Alkaline Phosphatase 163 H LD Total 205 Total Protein 5.3 L Albumin 2.4 L Blood Type A POSITIVE Antibody Screen Negative Problem List - Problems (1) COPD (chronic obstructive pulmonary disease) Code(s): J44.9 - CHRONIC OBSTRUCTIVE PULMONARY DISEASE, UNSPECIFIED Qualifiers : COPD type: COPD with acute exacerbation Qualified Code(s): J44.1 - Chronic obstructive pulmonary disease with (acute) exacerbation; J44.1 - Chronic obstructive pulmonary disease with (acute) exacerbation; J44.1 - Chronic obstructive pulmonary disease with (acute) exacerbation; J44.1 - Chronic obstructive pulmonary disease with (acute) exacerbation (2) HCAP (healthcare-associated pneumonia) Code(s): J18.9 - PNEUMONIA, UNSPECIFIED ORGANISM (3) Hypoxia Code(s): R09.02 - HYPOXEMIA (4) Pneumonia Code(s): J18.9 - PNEUMONIA, UNSPECIFIED ORGANISM Qualifiers: Pneumonia type: due to unspecified organism Laterality: unspecified laterality Lung location: unspecified part of lung Qualified Code(s) : J18.9 - Pneumonia, unspecified organism; J18.9 - Pneumonia, unspecified organism (5) Shortness of breath Code(s): R06.02 - SHORTNESS OF BREATH (6) Coronary artery disease Code(s): I25.10 - ATHSCL HEART DISEASE OF [place] CORONARY ARTERY W/O ANG PCTRS Qualifiers: Coronary Disease-Associated Artery/Lesion type: [place] artery [place] vs. transplanted heart: [place] heart Associated angina: without angina Qualified Code(s): I25.10 - Atherosclerotic heart disease of [place] coronary artery without angina pectoris; I25.10 - Atherosclerotic heart disease of [place] coronary artery without angina pectoris; I25.10 - Atherosclerotic heart disease of [place] coronary artery without angina pectoris (7) Dyspnea Code(s): R06.00 - DYSPNEA, UNSPECIFIED Qualifiers: Dyspnea type: dyspnea on exertion Qualified Code(s): R06.09 - Other forms of dyspnea; R06.09 - Other forms of dyspnea (8) Acute hypoxemic respiratory failure Code(s): J96.01 - ACUTE RESPIRATORY FAILURE WITH HYPOXIA (9) Hypothyroid Code(s): E03.9 - HYPOTHYROIDISM, UNSPECIFIED Qualifiers: Hypothyroidism type: acquired Qualified Code(s): E03.9 - Hypothyroidism, unspecified; E03.9 - Hypothyroidism, unspecified; E03.9 - Hypothyroidism, unspecified (10) Acute kidney injury Code(s): N17.9 - ACUTE KIDNEY FAILURE, UNSPECIFIED (11) Acute on chronic diastolic (congestive) heart failure Code(s): I50.33 - ACUTE ON CHRONIC DIASTOLIC (CONGESTIVE) HEART FAILURE (12) H/O heart artery stent Code(s): Z95.5 - PRESENCE OF CORONARY ANGIOPLASTY IMPLANT AND GRAFT (13) Hypertension Code(s): I10 - ESSENTIAL (PRIMARY) HYPERTENSION Qualifiers: Hypertension type: essential hypertension Qualified Code(s): I10 - Essential (primary) hypertension; I10 - Essential (primary) hypertension; I10 - Essential (primary) hypertension Assessment/Plan IMP ACUTE HYPOXEMIC RESPIRATORY FAILURE IMPROVING PNEUMONIA HAP COPD UTI WITH BACTEREMIA DIASTOLIC HF ASHD S/P STENT GERD ACUTE KIDNEY INJURY PLAN IV ANTIBIOTICS PER ID INHALED BRONCHODILATORS O2 MEDROL MONITOR LYES,RENAL FUNCTION DR SHOEMAKER
[2017-07-12] MEDS ORDERED: hydrALAZINE HCL 25 MG TABLET (FP) PO SCH (11:15)
--- NOTE | 2017-07-12 11:18 | PN ---
Teaching Attending Note Name of Resident: Jeff Anglin ATTENDING PHYSICIAN STATEMENT I saw and evaluated the patient. I reviewed the resident's note and discussed the case with the resident. I agree with the resident's findings and plan as documented. SUBJECTIVE:ID Ertepenem day 4 Rx Afebrile Getting Lasix steroids OBJECTIVE: ASSESSMENT AND PLAN: Laboratory Tests 07/05/17 07/12/17 07/12/17 15:05 06:45 06:45 WBC 13.2 H D Hgb 7.5 L Hct 24.0 L Plt Count 286 D BUN 39 H D Creatinine 1.1 H D Creat Clearance w eGFR 47.43 AST 43 H D ALT 50 D Alkaline Phosphatase 163 H Urine RBC 162 Urine WBC 2935 Assessment Respiratory insufficiency / COPD / No PNA Plan Continue Eterpenem for resitant UTI ESBL another 3 days to make 7 days Abby REEDER
[2017-07-12] MEDS ORDERED: PT OWN MED DRAWER 7, Y5N ONE ×2 (11:24→22:48)
[2017-07-12] MEDS: ACETAMINOPHEN 325 MG TABLET (FP) PO PRN (11:28)
--- NOTE | 2017-07-12 17:51 | PN ---
Progress Note (short form) - Note Progress Note: CC: sob s: sob slightly improved after IV lasix this morning, but still persists. + fatigue o: Current Medications Acetaminophen (Tylenol -) 650 mg PO Q4H PRN PRN Reason: FEVER OR PAIN Last Admin: 07/12/17 11:28 Dose: 650 mg Arformoterol Tartrate (Brovana (Restricted To Pulmonology/Resp) -) 1 amp NEB BID [facility] Last Admin: 07/12/17 10:35 Dose: 1 amp Aspirin (Asa -) 81 mg PO DAILY [facility] Last Admin: 07/12/17 10:19 Dose: 81 mg Atorvastatin Calcium (Lipitor -) 40 mg PO HS [facility] Last Admin: 07/11/17 22:06 Dose: 40 mg Cyanocobalamin (Vitamin B12 -) 1,000 mcg PO DAILY [facility] Last Admin: 07/12/17 10:19 Dose: 1,000 mcg Escitalopram Oxalate (Lexapro -) 20 mg PO DAILY [facility] Last Admin: 07/12/17 10:19 Dose: 20 mg Furosemide (Lasix Injection -) 20 mg IVPUSH DAILY [facility] Last Admin: 07/12/17 10:20 Dose: 20 mg Guaifenesin (Robitussin -) 10 ml PO Q4H PRN PRN Reason: COUGH Last Admin: 07/11/17 10:38 Dose: 10 ml Heparin Sodium (Porcine) (Heparin -) 5,000 unit SQ Q8H-IV [facility] Last Admin: 07/12/17 17:31 Dose: 5,000 unit Hydralazine HCl (Apresoline -) 25 mg PO BID [facility] Last Admin: 07/12/17 14:09 Dose: 25 mg Ertapenem 1 gm/ Sodium (Chloride) 50 mls @ 100 mls/hr IVPB DAILY [facility] PRN Reason: Protocol Last Admin: 07/12/17 10:20 Dose: 100 mls/hr Levothyroxine Sodium (Synthroid -) 100 mcg PO DAILY@0700 [facility] Last Admin: 07/12/17 06:06 Dose: 100 mcg Melatonin (Melatonin) 10 mg PO HS [facility] Last Admin: 07/11/17 22:16 Dose: 10 mg Methylprednisolone Sodium Succinate (Solu-Medrol -) 40 mg IVPB Q6H-IV [facility] Last Admin: 07/12/17 15:22 Dose: 40 mg Non-Formulary Medication (Fluticasone Furoate [Flonase Sensimist]) 9.9 ml NS DAILY [facility] Ondansetron HCl (Zofran -) 4 mg PO Q6H PRN Pantoprazole Sodium (Protonix -) 40 mg PO BID [facility] Last Admin: 07/12/17 10:19 Dose: 40 mg Polyethylene Glycol (Miralax (For Daily Use) -) 17 gm PO BID [facility] Last Admin: 07/12/17 10:31 Dose: Not Given Potassium Chloride (K-Dur -) 10 meq PO BID [facility] Last Admin: 07/12/17 10:20 Dose: 10 meq Tiotropium [place] (Spiriva -) 1 puff IH DAILY [facility] Last Admin: 07/12/17 10:21 Dose: 1 puff Valsartan (Diovan -) 320 mg PO DAILY [facility] Last Admin: 07/12/17 10:20 Dose: 320 mg Vital Signs - 24 hr 07/11/17 07/11/17 07/11/17 17:58 18:00 21:00 Temperature 97.7 F Pulse Rate 77 Respiratory 18 18 Rate Blood Pressure 156/66 O2 Sat by Pulse 99 Oximetry (%) 07/11/17 07/12/17 07/12/17 22:00 06:00 09:00 Temperature 97.8 F 96.4 F L Pulse Rate 70 74 Respiratory 18 18 Rate Blood Pressure 159/72 160/81 O2 Sat by Pulse 97 Oximetry (%) 07/12/17 07/12/17 07/12/17 10:00 12:33 14:43 Temperature 97 F L 98.4 F Pulse Rate 73 72 84 Respiratory 22 18 Rate Blood Pressure 145/66 113/82 O2 Sat by Pulse 96 Oximetry (%) 07/12/17 17:25 Temperature 97.5 F L Pulse Rate 73 Respiratory 20 Rate Blood Pressure 183/75 O2 Sat by Pulse Oximetry (%) Intake & Output 07/10/17 07/11/17 07/12/17 07/13/17 07:59 07:59 07:59 07:59 Intake Total 8511 715 1240 350 Balance 5717 900 1745 350 Weight 164 lb 1.6 oz 163 lb 12.8 oz nad no jvd rrr s1s2 no mrg diminshed air mov't, trace wheezes. bibasilar dullness. nl effort aaox3 no le e/c/c abd nt nd pos bs no jaundice diaphoresis CBC, BMP 07/12/17 06:45 07/12/17 06:45 ekg: possible ectopic atrial rhythm with short pr interval and pac's. borderline prolonged qt. no acute ischemic changes. echo 03/2017: nl lv/rv, mild ar/mr mibi 03/2017: nl mpi, nl lvef prior tele: sr cxr: progressive congestive and infiltrative findings. L> R. prominent mediastinum, weak insp effort. 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 sob: - initially did not appear to be 2/2 chf, IVF given when pt hypotensive. BP now improved. - on abx for pna, uti - mgm't of possible contribution from copd per pmd. - + pulmonary congestion s/p IVF, may be contributing to persistent dyspnea. Sx 's slightly improved with trial of po lasix. - 07/12: s/p trial of first dose of IV lasix today. Sx's continue to improve. Monitor bmp tomorrow and reassess the need for diuresis. If remains question of contribution from pna vs. congestion, can consider chest CT to clarify. prolonged qt - now off levaquin, would avoid qt prolonging abx in setting of lexapro. lyte repletion prn. Possible residual PNA (JUAN LUIS)/UTI -on abx, symptomatically improving, pulm following copd: -mgm't per pmd/pulm h/o acute diastolic chf likely secondary to hypertensive emergency (04/19): - Initially, Likely slightly volume up after 1.5 L of fluid, but symptomatically improving. Planned to manage diuresis once infection stabilized and bp improved IVF now off. -recent echo and mibi unremarkable -Diuresis plan as above. monitor daily weights and volume status. chronic LE edema/venous insuff: -stable currently htn: -Initially bp's held for hypotension, now being added back on. - of note, bystolic stopped on prior admit due to 2/2 bradycardia, also with h/ o worsened edema with ccb - 07/12: bp still suboptimal on valsartan and low dose hydralazine. Will increase hydralazine to 50 bid. cad s/p remote pci: -no recent angina or ischemia (03/20) -trop currently normal, no ekg changes -cont home regimen asa, statin, arb - persistent anemia, ok to hold ASA if needed.
[2017-07-12] MEDS ORDERED: hydrALAZINE HCL 25 MG TABLET (FP) PO ONE (17:58)
[2017-07-12] MEDS: hydrALAZINE HCL 50 MG TABLET (FP) PO SCH (22:50)
[2017-07-12] MEDS: ATORVASTATIN CA 40 MG TABLET (FP) PO SCH (22:50)
[2017-07-12] MEDS: MELATONIN 5 MG TABLETS PO SCH (22:52)
[2017-07-13] MEDS: HEPARIN NA (PORCINE) 5,000 UNITS/ML 1ML VIAL SQ SCH ×3 (01:55→18:42)
[2017-07-13] MEDS: methylPREDNISolone NA SUCC 40 MG/1 ML VIAL IVPB SCH ×3 (02:10→21:46)
[2017-07-13] MEDS: ACETAMINOPHEN 325 MG TABLET (FP) PO PRN (04:58)
[2017-07-13 06:11] LABS: SERUM IRON 232 ug/dL (27-139); TOTAL IRON BINDING CAPACITY < 249 ug/dL (250-450); UIBC < 17 ug/dL (118-369)
[2017-07-13] MEDS: LEVOTHYROXINE NA 100 MCG TABLET (FP) PO SCH (06:29)
[2017-07-13 07:16] LABS: MCH 22.8 pg (25.7-33.7); MCHC 31.3 g/dl (32.0-36.0); MEAN CELL VOLUME 72.9 fl (80-96); MEAN PLT VOLUME 8.5 fl (7.5-11.1); PLATELET COUNT 304 K/MM3 (134-434); RDW 19.9 % (11.6-15.6); WHITE BLOOD COUNT 11.6 K/mm3 (4.0-10.0)
[2017-07-13 07:41] LABS: ANION GAP 9 (8-16); CALCIUM 9.3 mg/dL (8.5-10.1); CO2 24 mmol/L (21-32); GLUCOSE,RANDOM 113 mg/dL (74-106)
[2017-07-13 09:04] LABS: ANISOCYTOSIS 1+; HYPOCHROMIA 1+; MYELOCYTE 1 % (0-2); PLATELET ESTIMATE ADEQUATE (NORMAL); POLYCHROMASIA F; TOTAL CELLS COUNTED 100
[2017-07-13 09:05] LABS: MICROCYTOSIS 1+
[2017-07-13] MEDS: ARFORMOTEROL TARTRATE 15 MCG/2 ML VIAL NEB SCH ×2 (09:16→22:00)
[2017-07-13] MEDS ORDERED: PT OWN MED DRAWER 7, Y5N ONE ×2 (09:47→21:53)
--- NOTE | 2017-07-13 09:48 | PN ---
Progress Note (short form) - Note Progress Note: Patient seen and examined sister in law at bedside. pt with cough/fatigue GEN: NAD HEENT: PERRLA, EOMi CV: Irregularly Irregular rhythm LUNG: Crackles bilaterally ABD: Soft, NT, ND MSK: No edema Temp Pulse Resp BP Pulse Ox 98.1 F 78 20 153/64 96 07/13/17 05:47 07/13/17 05:47 07/13/17 05:47 07/13/17 05:47 07/12/17 21:00 CBC, BMP 07/13/17 06:30 07/13/17 06:30 Current Medications Generic Name Dose Route Start Last Admin Trade Name Freq PRN Reason Stop Dose Admin Acetaminophen 650 mg 07/05/17 15:58 07/13/17 04:58 Tylenol - PO 650 mg Q4H PRN Administration FEVER OR PAIN Arformoterol Tartrate 1 amp 07/10/17 13:00 07/13/17 09:16 Brovana (Restricted To Pulmonology/Resp) - NEB 1 amp BID [facility] Administration Aspirin 81 mg 07/06/17 10:00 07/12/17 10:19 Asa - PO 81 mg DAILY [facility] Administration Atorvastatin Calcium 40 mg 07/05/17 22:00 07/12/17 22:50 Lipitor - PO 40 mg HS [facility] Administration Cyanocobalamin 1,000 mcg 07/06/17 10:00 07/12/17 10:19 Vitamin B12 - PO 1,000 mcg DAILY [facility] Administration Escitalopram Oxalate 20 mg 07/06/17 10:00 07/12/17 10:19 Lexapro - PO 20 mg DAILY [facility] Administration Furosemide 20 mg 07/12/17 10:00 07/12/17 10:20 Lasix Injection - IVPUSH 20 mg DAILY [facility] Administration Guaifenesin 10 ml 07/08/17 09:15 07/11/17 10:38 Robitussin - PO 10 ml Q4H PRN Administration COUGH Heparin Sodium (Porcine) 5,000 unit 07/05/17 18:00 07/13/17 01:55 Heparin - SQ 5,000 unit Q8H-IV [facility] Administration Hydralazine HCl 50 mg 07/12/17 22:00 07/12/17 22:50 Apresoline - PO 50 mg BID [facility] Administration Ertapenem 1 gm/ Sodium 50 mls @ 100 mls/hr 07/08/17 14:15 07/12/17 10:20 Chloride IVPB 100 mls/hr DAILY [facility] Administration Protocol Levothyroxine Sodium 100 mcg 07/06/17 07:00 07/13/17 06:29 Synthroid - PO 100 mcg DAILY@0700 [facility] Administration Melatonin 10 mg 07/05/17 22:00 07/12/17 22:52 Melatonin PO 10 mg HS [facility] Administration Methylprednisolone Sodium Succinate 40 mg 07/10/17 13:00 07/13/17 02:10 Solu-Medrol - IVPB 40 mg Q6H-IV [facility] Administration Non-Formulary Medication 9.9 ml 07/06/17 10:00 Fluticasone Furoate [Flonase Sensimist] NS DAILY [facility] Ondansetron HCl 4 mg 07/07/17 01:50 Zofran - PO Q6H PRN Pantoprazole Sodium 40 mg 07/05/17 22:00 07/12/17 22:50 Protonix - PO 40 mg BID [facility] Administration Polyethylene Glycol 17 gm 07/05/17 22:00 07/12/17 22:53 Miralax (For Daily Use) - PO 17 grams BID [facility] Administration Potassium Chloride 10 meq 07/06/17 22:00 07/12/17 22:50 K-Dur - PO 10 meq BID [facility] Administration Tiotropium [employer] 1 puff 07/07/17 13:00 07/12/17 10:21 Spiriva - IH 1 puff DAILY [facility] Administration Valsartan 320 mg 07/11/17 10:00 07/12/17 10:20 Diovan - PO 320 mg DAILY [facility] Administration Fe deficiency anemia Possible liver hemangioma PNA/UTI COPD/CHF CAD. -iron studies noted. low iron/ low ferritin. appropriate reticulocytosis, no evidence of hemolysis. -GI eval noted, Procedures when stable cardio/pulmonary jeffers -Hgb continues to be <8 -will dose IV iron -will follow CBC in the am, if continues to trend down, will need to transfuse PRBC , at a slow rate and followed by [facility] ( especially in the setting of active infection/COPD/CHF). Has active type and screen.
[2017-07-13] MEDS: POTASSIUM CHLORIDE TABS 10 MEQ TABLET.ER (FP) PO SCH (10:01)
[2017-07-13] MEDS: ESCITALOPRAM OXALATE 20 MG TABLET (FP) PO SCH (10:01)
[2017-07-13] MEDS: ASPIRIN 81 MG CHEWABLE TABLETS PO SCH (10:01)
[2017-07-13] MEDS: VALSARTAN 160 MG TABLET (UD) PO SCH (10:01)
[2017-07-13] MEDS: CYANOCOBALAMIN 1,000 MCG TABLET (FP) PO SCH (10:01)
[2017-07-13] MEDS: hydrALAZINE HCL 50 MG TABLET (FP) PO SCH ×2 (10:01→21:54)
[2017-07-13] MEDS: TIOTROPIUM BROMIDE 18 MCG/INH (DEVICE W/ 5 CAPSULES) IH SCH (10:02)
[2017-07-13] MEDS: POLYETHYLENE GLYCOL 3350 119 GM BTL PO SCH ×2 (10:02→22:53)
[2017-07-13] MEDS: PANTOPRAZOLE 40 MG TABLET (FP) PO SCH ×2 (10:02→21:46)
[2017-07-13] MEDS: ERTAPENEM SODIUM 1 GM in SODIUM CHLORIDE 50 ML IVPB SCH (10:02)
[2017-07-13] MEDS ORDERED: IRON SUCROSE INJECTION 100 MG in SODIUM CHLORIDE 95 ML IVPB ONE (10:15)
--- NOTE | 2017-07-13 10:54 | PN ---
Progress Note (short form) - Note Progress Note: Still with congested cough and AKBAR but slowly improving. Had a GRAVES this AM which is now better. No acute events overnight. Intake & Output 07/10/17 07/11/17 07/12/17 07/13/17 23:59 23:59 23:59 23:59 Intake Total 920 1195 760 400 Balance 920 1195 760 400 Weight 160 lb 4.8 oz 159 lb 14.4 oz 163 lb 12.8 oz 159 lb 12.8 oz Last Vital Signs Temp Pulse Resp BP Pulse Ox 98.1 F 78 20 153/64 96 07/13/17 05:47 07/13/17 05:47 07/13/17 05:47 07/13/17 05:47 07/12/17 21:00 Active Medications Acetaminophen (Tylenol -) 650 mg PO Q4H PRN PRN Reason: FEVER OR PAIN Last Admin: 07/13/17 04:58 Dose: 650 mg Arformoterol Tartrate (Brovana (Restricted To Pulmonology/Resp) -) 1 amp NEB BID [facility] Last Admin: 07/13/17 09:16 Dose: 1 amp Aspirin (Asa -) 81 mg PO DAILY [facility] Last Admin: 07/13/17 10:01 Dose: 81 mg Atorvastatin Calcium (Lipitor -) 40 mg PO HS [facility] Last Admin: 07/12/17 22:50 Dose: 40 mg Cyanocobalamin (Vitamin B12 -) 1,000 mcg PO DAILY [facility] Last Admin: 07/13/17 10:01 Dose: 1,000 mcg Escitalopram Oxalate (Lexapro -) 20 mg PO DAILY [facility] Last Admin: 07/13/17 10:01 Dose: 20 mg Furosemide (Lasix Injection -) 20 mg IVPUSH DAILY [facility] Last Admin: 07/12/17 10:20 Dose: 20 mg Guaifenesin (Robitussin -) 10 ml PO Q4H PRN PRN Reason: COUGH Last Admin: 07/11/17 10:38 Dose: 10 ml Heparin Sodium (Porcine) (Heparin -) 5,000 unit SQ Q8H-IV [facility] Last Admin: 07/13/17 10:02 Dose: 5,000 unit Hydralazine HCl (Apresoline -) 50 mg PO BID [facility] Last Admin: 07/13/17 10:01 Dose: 50 mg Ertapenem 1 gm/ Sodium (Chloride) 50 mls @ 100 mls/hr IVPB DAILY [facility] PRN Reason: Protocol Last Admin: 07/13/17 10:02 Dose: 100 mls/hr Levothyroxine Sodium (Synthroid -) 100 mcg PO DAILY@0700 [facility] Last Admin: 07/13/17 06:29 Dose: 100 mcg Melatonin (Melatonin) 10 mg PO HS [facility] Last Admin: 07/12/17 22:52 Dose: 10 mg Methylprednisolone Sodium Succinate (Solu-Medrol -) 40 mg IVPB Q6H-IV [facility] Last Admin: 07/13/17 10:01 Dose: 40 mg Non-Formulary Medication (Fluticasone Furoate [Flonase Sensimist]) 9.9 ml NS DAILY [facility] Ondansetron HCl (Zofran -) 4 mg PO Q6H PRN Pantoprazole Sodium (Protonix -) 40 mg PO BID [facility] Last Admin: 07/13/17 10:02 Dose: 40 mg Polyethylene Glycol (Miralax (For Daily Use) -) 17 gm PO BID [facility] Last Admin: 07/13/17 10:02 Dose: Not Given Potassium Chloride (K-Dur -) 10 meq PO BID [facility] Last Admin: 07/13/17 10:01 Dose: 10 meq Tiotropium [place] (Spiriva -) 1 puff IH DAILY [facility] Last Admin: 07/13/17 10:02 Dose: 1 puff Valsartan (Diovan -) 320 mg PO DAILY [facility] Last Admin: 07/13/17 10:01 Dose: 320 mg Constitutional: Yes: NAD Eyes: Yes: WNL HENT: Yes: WNL Neck: Yes: WNL Cardiovascular: Yes: Regular Rate and Rhythm, S1, S2 Respiratory: Yes: Bibasilar crackles/Rhonchi Gastrointestinal: Yes: Normal Bowel Sounds, Soft Extremities: Yes: WNL Edema: No Lab: Laboratory Results - last 24 hr 07/12/17 07/13/17 07/13/17 06:45 06:30 06:30 WBC 11.6 H RBC 3.30 L Hgb 7.5 L Hct 24.1 L MCV 72.9 L MCH 22.8 L MCHC 31.3 L RDW 19.9 H Plt Count 304 MPV 8.5 Total Counted 100 Neutrophils % No Result Required. Neutrophils % (Manual) 88 H D Lymphocytes % No Result Required. Lymphocytes % (Manual) 8 D Monocytes % (Manual) 3 L Myelocytes % (Man) 1 Hypochromia 1+ Platelet Estimate Adequate Platelet Comment No clumping noted Polychromasia F Anisocytosis 1+ Microcytosis 1+ Sodium 142 Potassium 4.8 Chloride 109 H Carbon Dioxide 24 Anion Gap 9 BUN 42 H Creatinine 1.0 Random Glucose 113 H Calcium 9.3 Iron 232 H TIBC < 249 L Iron Saturation > 93 H Problem List - Problems (1) COPD (chronic obstructive pulmonary disease) Code(s): J44.9 - CHRONIC OBSTRUCTIVE PULMONARY DISEASE, UNSPECIFIED Qualifiers : COPD type: COPD with acute exacerbation Qualified Code(s): J44.1 - Chronic obstructive pulmonary disease with (acute) exacerbation; J44.1 - Chronic obstructive pulmonary disease with (acute) exacerbation; J44.1 - Chronic obstructive pulmonary disease with (acute) exacerbation; J44.1 - Chronic obstructive pulmonary disease with (acute) exacerbation (2) HCAP (healthcare-associated pneumonia) Code(s): J18.9 - PNEUMONIA, UNSPECIFIED ORGANISM (3) Hypoxia Code(s): R09.02 - HYPOXEMIA (4) Pneumonia Code(s): J18.9 - PNEUMONIA, UNSPECIFIED ORGANISM Qualifiers: Pneumonia type: due to unspecified organism Laterality: unspecified laterality Lung location: unspecified part of lung Qualified Code(s) : J18.9 - Pneumonia, unspecified organism; J18.9 - Pneumonia, unspecified organism (5) Shortness of breath Code(s): R06.02 - SHORTNESS OF BREATH (6) Coronary artery disease Code(s): I25.10 - ATHSCL HEART DISEASE OF [place] CORONARY ARTERY W/O ANG PCTRS Qualifiers: Coronary Disease-Associated Artery/Lesion type: [place] artery [place] vs. transplanted heart: [place] heart Associated angina: without angina Qualified Code(s): I25.10 - Atherosclerotic heart disease of [place] coronary artery without angina pectoris; I25.10 - Atherosclerotic heart disease of [place] coronary artery without angina pectoris; I25.10 - Atherosclerotic heart disease of [place] coronary artery without angina pectoris (7) Dyspnea Code(s): R06.00 - DYSPNEA, UNSPECIFIED Qualifiers: Dyspnea type: dyspnea on exertion Qualified Code(s): R06.09 - Other forms of dyspnea; R06.09 - Other forms of dyspnea (8) Acute hypoxemic respiratory failure Code(s): J96.01 - ACUTE RESPIRATORY FAILURE WITH HYPOXIA (9) Hypothyroid Code(s): E03.9 - HYPOTHYROIDISM, UNSPECIFIED Qualifiers: Hypothyroidism type: acquired Qualified Code(s): E03.9 - Hypothyroidism, unspecified; E03.9 - Hypothyroidism, unspecified; E03.9 - Hypothyroidism, unspecified (10) Acute kidney injury Code(s): N17.9 - ACUTE KIDNEY FAILURE, UNSPECIFIED (11) Acute on chronic diastolic (congestive) heart failure Code(s): I50.33 - ACUTE ON CHRONIC DIASTOLIC (CONGESTIVE) HEART FAILURE (12) H/O heart artery stent Code(s): Z95.5 - PRESENCE OF CORONARY ANGIOPLASTY IMPLANT AND GRAFT (13) Hypertension Code(s): I10 - ESSENTIAL (PRIMARY) HYPERTENSION Qualifiers: Hypertension type: essential hypertension Qualified Code(s): I10 - Essential (primary) hypertension; I10 - Essential (primary) hypertension; I10 - Essential (primary) hypertension Assessment/Plan IMP ACUTE HYPOXEMIC RESPIRATORY FAILURE IMPROVING PNEUMONIA HAP COPD UTI WITH BACTEREMIA DIASTOLIC HF ASHD S/P STENT GERD ACUTE KIDNEY INJURY PLAN IV ANTIBIOTICS PER ID INHALED BRONCHODILATORS O2 MEDROL TAPER MONITOR LYES,RENAL FUNCTION DR SHOEMAKER
--- NOTE | 2017-07-13 11:07 | PN ---
Progress Note (short form) - Note Progress Note: CC: sob s: s/p lasix 20 mg IV x 1 yesterday and uptitration of hydralazine for elevated bp's yesterday. o: Current Medications Acetaminophen (Tylenol -) 650 mg PO Q4H PRN PRN Reason: FEVER OR PAIN Last Admin: 07/13/17 04:58 Dose: 650 mg Arformoterol Tartrate (Brovana (Restricted To Pulmonology/Resp) -) 1 amp NEB BID [facility] Last Admin: 07/13/17 09:16 Dose: 1 amp Aspirin (Asa -) 81 mg PO DAILY [facility] Last Admin: 07/13/17 10:01 Dose: 81 mg Atorvastatin Calcium (Lipitor -) 40 mg PO HS [facility] Last Admin: 07/12/17 22:50 Dose: 40 mg Cyanocobalamin (Vitamin B12 -) 1,000 mcg PO DAILY [facility] Last Admin: 07/13/17 10:01 Dose: 1,000 mcg Escitalopram Oxalate (Lexapro -) 20 mg PO DAILY [facility] Last Admin: 07/13/17 10:01 Dose: 20 mg Furosemide (Lasix -) 20 mg PO DAILY [facility] Guaifenesin (Robitussin -) 10 ml PO Q4H PRN PRN Reason: COUGH Last Admin: 07/11/17 10:38 Dose: 10 ml Heparin Sodium (Porcine) (Heparin -) 5,000 unit SQ Q8H-IV [facility] Last Admin: 07/13/17 10:02 Dose: 5,000 unit Hydralazine HCl (Apresoline -) 50 mg PO BID [facility] Last Admin: 07/13/17 10:01 Dose: 50 mg Ertapenem 1 gm/ Sodium (Chloride) 50 mls @ 100 mls/hr IVPB DAILY [facility] PRN Reason: Protocol Last Admin: 07/13/17 10:02 Dose: 100 mls/hr Levothyroxine Sodium (Synthroid -) 100 mcg PO DAILY@0700 [facility] Last Admin: 07/13/17 06:29 Dose: 100 mcg Melatonin (Melatonin) 10 mg PO HS [facility] Last Admin: 07/12/17 22:52 Dose: 10 mg Methylprednisolone Sodium Succinate (Solu-Medrol -) 40 mg IVPB Q12H [facility] Non-Formulary Medication (Fluticasone Furoate [Flonase Sensimist]) 9.9 ml NS DAILY [facility] Ondansetron HCl (Zofran -) 4 mg PO Q6H PRN Pantoprazole Sodium (Protonix -) 40 mg PO BID [facility] Last Admin: 07/13/17 10:02 Dose: 40 mg Polyethylene Glycol (Miralax (For Daily Use) -) 17 gm PO BID [facility] Last Admin: 07/13/17 10:02 Dose: Not Given Potassium Chloride (K-Dur -) 10 meq PO BID [facility] Last Admin: 07/13/17 10:01 Dose: 10 meq Tiotropium [place] (Spiriva -) 1 puff IH DAILY [facility] Last Admin: 07/13/17 10:02 Dose: 1 puff Valsartan (Diovan -) 320 mg PO DAILY [facility] Last Admin: 07/13/17 10:01 Dose: 320 mg Vital Signs - 24 hr 07/12/17 07/12/17 07/12/17 12:33 14:43 17:25 Temperature 98.4 F 97.5 F L Pulse Rate 72 84 73 Respiratory 18 20 Rate Blood Pressure 113/82 183/75 O2 Sat by Pulse 96 Oximetry (%) 07/12/17 07/12/17 07/12/17 18:32 21:00 22:00 Temperature 97.9 F Pulse Rate 75 76 Respiratory 20 22 Rate Blood Pressure 131/56 129/71 O2 Sat by Pulse 96 Oximetry (%) 07/13/17 05:47 Temperature 98.1 F Pulse Rate 78 Respiratory 20 Rate Blood Pressure 153/64 O2 Sat by Pulse Oximetry (%) Intake & Output 07/11/17 07/12/17 07/13/17 07/14/17 07:59 07:59 07:59 07:59 Intake Total 920 1405 950 Balance 920 1405 950 Weight 164 lb 1.6 oz 163 lb 12.8 oz 159 lb 12.8 oz nad no jvd rrr s1s2 no mrg diminshed air mov't, trace wheezes. bibasilar dullness. nl effort aaox3 no le e/c/c abd nt nd pos bs no jaundice diaphoresis CBC, BMP 07/13/17 06:30 07/13/17 06:30 ekg: possible ectopic atrial rhythm with short pr interval and pac's. borderline prolonged qt. no acute ischemic changes. echo 03/2017: nl lv/rv, mild ar/mr mibi 03/2017: nl mpi, nl lvef prior tele: sr cxr: progressive congestive and infiltrative findings. L> R. prominent mediastinum, weak insp effort. 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 sob: - initially did not appear to be 2/2 chf, IVF given when pt hypotensive. BP now improved. - on abx for pna, uti - mgm't of possible contribution from copd per pmd. - + pulmonary congestion s/p IVF, may be contributing to persistent dyspnea. Sx 's slightly improved with trial of po lasix. - 07/12: s/p trial of first dose of IV lasix today. Sx's continue to improve. Monitor bmp tomorrow and reassess the need for diuresis. - 07/13: Weight improved s/p IV lasix yesterday. Will transition back to PO lasix. If question of contribution from pna vs. congestion, can consider chest CT to clarify. Will repeat CXR tomorrow. Possible residual PNA (JUAN LUIS)/UTI -on abx, symptomatically improving, pulm following copd: -mgm't per pmd/pulm h/o acute diastolic chf likely secondary to hypertensive emergency (04/19): - Initially, Likely slightly volume up after 1.5 L of fluid, but symptomatically improved. Planned to manage diuresis once infection stabilized and bp improved IVF now off. -recent echo and mibi unremarkable -07/10-07/13. BP improved --> initated po lasix 07/10. One dose of IV lasix yesterday 07/12 with improvement in weight. Resume outpatient po dosing today . monitor daily weights and volume status. K rising, will stop supplementation. chronic LE edema/venous insuff: -stable currently htn: -Initially bp's held for hypotension, now being added back on. - of note, bystolic stopped on prior admit due to 2/2 bradycardia, also with h/ o worsened edema with ccb - 07/12: bp still suboptimal on valsartan and low dose hydralazine. Will increase hydralazine to 50 bid. - 07/13: bp improved, con't current regimen, con't to monitor for need to uptitrate (still not on prior home regimen) cad s/p remote pci: -no recent angina or ischemia (03/20). Echo 03/2017 without significant abnormality. -trop currently normal, no ekg changes -cont home regimen statin, arb - will hold ASA in light of worsening anemia. On IV iron transfusions per heme. prolonged qt - now off levaquin, would avoid qt prolonging abx in setting of lexapro. lyte repletion prn. - consider repeat ekg prior to discharge.
--- NOTE | 2017-07-13 12:05 | PN ---
Physical Exam: INFECTIOUS DISEASE SUBJECTIVE: Patient seen and examined this AM. SOB has improved. Still coughing. No fevers/chills/CP. OBJECTIVE: Vital Signs Period Temp Pulse Resp BP Sys/Rios Pulse Ox Last 24 Hr 97.5 F-98.4 F 72-84 18-22 113-183/56-82 96-96 GEN: AAOx3, NAD, lying in bed HEENT: PERRLA, EOMi CV: Irregularly Irregular rhythm LUNG: Crackles bilaterally ABD: Soft, NT, ND MSK: No edema Laboratory Results - last 24 hr 07/12/17 07/13/17 07/13/17 06:45 06:30 06:30 WBC 11.6 H RBC 3.30 L Hgb 7.5 L Hct 24.1 L MCV 72.9 L MCH 22.8 L MCHC 31.3 L RDW 19.9 H Plt Count 304 MPV 8.5 Total Counted 100 Neutrophils % No Result Required. Neutrophils % (Manual) 88 H D Lymphocytes % No Result Required. Lymphocytes % (Manual) 8 D Monocytes % (Manual) 3 L Myelocytes % (Man) 1 Hypochromia 1+ Platelet Estimate Adequate Platelet Comment No clumping noted Polychromasia F Anisocytosis 1+ Microcytosis 1+ Sodium 142 Potassium 4.8 Chloride 109 H Carbon Dioxide 24 Anion Gap 9 BUN 42 H Creatinine 1.0 Random Glucose 113 H Calcium 9.3 Iron 232 H TIBC < 249 L Iron Saturation > 93 H Active Medications Generic Name Dose Route Start Last Admin Trade Name Freq PRN Reason Stop Dose Admin Acetaminophen 650 mg 07/05/17 15:58 07/13/17 04:58 Tylenol - PO 650 mg Q4H PRN Administration FEVER OR PAIN Arformoterol Tartrate 1 amp 07/10/17 13:00 07/13/17 09:16 Brovana (Restricted To Pulmonology/Resp) - NEB 1 amp BID [facility] Administration Atorvastatin Calcium 40 mg 07/05/17 22:00 07/12/17 22:50 Lipitor - PO 40 mg HS [facility] Administration Cyanocobalamin 1,000 mcg 07/06/17 10:00 07/13/17 10:01 Vitamin B12 - PO 1,000 mcg DAILY [facility] Administration Escitalopram Oxalate 20 mg 07/06/17 10:00 07/13/17 10:01 Lexapro - PO 20 mg DAILY [facility] Administration Furosemide 20 mg 07/13/17 11:00 Lasix - PO DAILY [facility] Guaifenesin 10 ml 07/08/17 09:15 07/11/17 10:38 Robitussin - PO 10 ml Q4H PRN Administration COUGH Heparin Sodium (Porcine) 5,000 unit 07/05/17 18:00 07/13/17 10:02 Heparin - SQ 5,000 unit Q8H-IV [facility] Administration Hydralazine HCl 50 mg 07/12/17 22:00 07/13/17 10:01 Apresoline - PO 50 mg BID [facility] Administration Ertapenem 1 gm/ Sodium 50 mls @ 100 mls/hr 07/08/17 14:15 07/13/17 10:02 Chloride IVPB 100 mls/hr DAILY [facility] Administration Protocol Levothyroxine Sodium 100 mcg 07/06/17 07:00 07/13/17 06:29 Synthroid - PO 100 mcg DAILY@0700 [facility] Administration Melatonin 10 mg 07/05/17 22:00 07/12/17 22:52 Melatonin PO 10 mg HS [facility] Administration Methylprednisolone Sodium Succinate 40 mg 07/13/17 22:00 Solu-Medrol - IVPB Q12H [facility] Non-Formulary Medication 9.9 ml 07/06/17 10:00 Fluticasone Furoate [Flonase Sensimist] NS DAILY [facility] Ondansetron HCl 4 mg 07/07/17 01:50 Zofran - PO Q6H PRN Pantoprazole Sodium 40 mg 07/05/17 22:00 07/13/17 10:02 Protonix - PO 40 mg BID [facility] Administration Polyethylene Glycol 17 gm 07/05/17 22:00 07/13/17 10:02 Miralax (For Daily Use) - PO Not Given BID [facility] Tiotropium [place] 1 puff 07/07/17 13:00 07/13/17 10:02 Spiriva - IH 1 puff DAILY [facility] Administration Valsartan 320 mg 07/11/17 10:00 07/13/17 10:01 Diovan - PO 320 mg DAILY [facility] Administration ASSESSMENT/PLAN: Ms. 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 She is admitted for sepsis 2/ 2 UTI # ESBL UTI - +Urine cultures - Day 5 Ertapenem, continue for 2 more days for total 7 day coverage Discussed w/ Dr Mathew. Will follow Jeff Anglin MD - PGY1, Infectious Disease Visit type - Emergency Visit Emergency Visit: No - New Patient This patient is new to me today: No - Critical Care Critical Care patient: No - Discharge Referral Referred to [facility] Med [facility].C[facility] No
[2017-07-13] MEDS: FUROSEMIDE 20 MG TABLET (FP) PO SCH (12:09)
--- NOTE | 2017-07-13 13:03 | PN ---
Progress Note, Physician Chief Complaint: Still some coughing and weakness. History of Present Illness: Patient with ASHD with stent, Pnuemonia, COPD with exacerbation, Hypertension, Iron Def Anemia; Chronic anxiety and liver mass is slowly improving but has recurring problems with SOB on ambulation, coughing and fatigue. Seen by Hematology who has ordered Iron Iv Rx for the second day and Hb still low at 7.5 GM. Cardiology has D/Yaw ASA and added lasix and increased the hydralazine dose. ? to repeat ChestCT. To follow. - Current Medication List Current Medications: Active Medications Acetaminophen (Tylenol -) 650 mg PO Q4H PRN PRN Reason: FEVER OR PAIN Last Admin: 07/13/17 04:58 Dose: 650 mg Arformoterol Tartrate (Brovana (Restricted To Pulmonology/Resp) -) 1 amp NEB BID [facility] Last Admin: 07/13/17 09:16 Dose: 1 amp Atorvastatin Calcium (Lipitor -) 40 mg PO HS [facility] Last Admin: 07/12/17 22:50 Dose: 40 mg Cyanocobalamin (Vitamin B12 -) 1,000 mcg PO DAILY [facility] Last Admin: 07/13/17 10:01 Dose: 1,000 mcg Escitalopram Oxalate (Lexapro -) 20 mg PO DAILY [facility] Last Admin: 07/13/17 10:01 Dose: 20 mg Furosemide (Lasix -) 20 mg PO DAILY [facility] Last Admin: 07/13/17 12:09 Dose: 20 mg Guaifenesin (Robitussin -) 10 ml PO Q4H PRN PRN Reason: COUGH Last Admin: 07/11/17 10:38 Dose: 10 ml Heparin Sodium (Porcine) (Heparin -) 5,000 unit SQ Q8H-IV [facility] Last Admin: 07/13/17 10:02 Dose: 5,000 unit Hydralazine HCl (Apresoline -) 50 mg PO BID [facility] Last Admin: 07/13/17 10:01 Dose: 50 mg Ertapenem 1 gm/ Sodium (Chloride) 50 mls @ 100 mls/hr IVPB DAILY [facility] PRN Reason: Protocol Last Admin: 07/13/17 10:02 Dose: 100 mls/hr Levothyroxine Sodium (Synthroid -) 100 mcg PO DAILY@0700 [facility] Last Admin: 07/13/17 06:29 Dose: 100 mcg Melatonin (Melatonin) 10 mg PO HS [facility] Last Admin: 07/12/17 22:52 Dose: 10 mg Methylprednisolone Sodium Succinate (Solu-Medrol -) 40 mg IVPB Q12H [facility] Non-Formulary Medication (Fluticasone Furoate [Flonase Sensimist]) 9.9 ml NS DAILY [facility] Ondansetron HCl (Zofran -) 4 mg PO Q6H PRN Pantoprazole Sodium (Protonix -) 40 mg PO BID [facility] Last Admin: 07/13/17 10:02 Dose: 40 mg Polyethylene Glycol (Miralax (For Daily Use) -) 17 gm PO BID [facility] Last Admin: 07/13/17 10:02 Dose: Not Given Tiotropium [place] (Spiriva -) 1 puff IH DAILY [facility] Last Admin: 07/13/17 10:02 Dose: 1 puff Valsartan (Diovan -) 320 mg PO DAILY [facility] Last Admin: 07/13/17 10:01 Dose: 320 mg - Objective Vital Signs: Vital Signs Temperature 98.1 F 07/13/17 05:47 Pulse Rate 78 07/13/17 05:47 Respiratory Rate 20 07/13/17 05:47 Blood Pressure 153/64 07/13/17 05:47 O2 Sat by Pulse Oximetry (%) 96 07/12/17 21:00 Constitutional: Yes: Anxious Cardiovascular: Yes: Regular Rate and Rhythm Respiratory: Yes: On Nasal O2, SOB on Exertion Gastrointestinal: Yes: Soft Genitourinary: No: [place] Present Edema: No Neurological: Yes: Alert, Oriented, Unsteady Gait (uses walker) Labs: CBC, BMP 07/13/17 06:30 07/13/17 06:30 INR, PTT INR 1.21 (0.82-1.09) H 07/05/17 14:00 - ....Imaging Chest X-ray: Report Reviewed Problem List - Problems (1) COPD (chronic obstructive pulmonary disease) Assessment/Plan: IV steroids down to BID as per Pulmonary MD. Code(s): J44.9 - CHRONIC OBSTRUCTIVE PULMONARY DISEASE, UNSPECIFIED Qualifiers : COPD type: COPD with acute exacerbation Qualified Code(s): J44.1 - Chronic obstructive pulmonary disease with (acute) exacerbation; J44.1 - Chronic obstructive pulmonary disease with (acute) exacerbation; J44.1 - Chronic obstructive pulmonary disease with (acute) exacerbation; J44.1 - Chronic obstructive pulmonary disease with (acute) exacerbation (2) Anxiety about health Assessment/Plan: ON Lexapro but still seems to stare when illness discussed. Code(s): F41.8 - OTHER SPECIFIED ANXIETY DISORDERS (3) Congestive cardiac failure Assessment/Plan: Followed by Cardiology; now on Lasix and Hydalazine. Code(s): I50.9 - HEART FAILURE, UNSPECIFIED Qualifiers: Congestive heart failure type: diastolic Congestive heart failure chronicity: chronic Qualified Code(s): I50.32 - Chronic diastolic ( congestive) heart failure; I50.32 - Chronic diastolic (congestive) heart failure ; I50.32 - Chronic diastolic (congestive) heart failure; I50.32 - Chronic diastolic (congestive) heart failure (4) Pneumonia Assessment/Plan: To repeat CXR. Code(s): J18.9 - PNEUMONIA, UNSPECIFIED ORGANISM Qualifiers: Pneumonia type: due to unspecified organism Laterality: unspecified laterality Lung location: unspecified part of lung Qualified Code(s) : J18.9 - Pneumonia, unspecified organism; J18.9 - Pneumonia, unspecified organism (5) UTI (urinary tract infection) Assessment/Plan: To complete 7 days Rx. Code(s): N39.0 - URINARY TRACT INFECTION, SITE NOT SPECIFIED (6) Iron (Fe) deficiency anemia Assessment/Plan: She received a second day of IV Iron today. Hb still low at7.7GM. Code(s): D50.9 - IRON DEFICIENCY ANEMIA, UNSPECIFIED
--- NOTE | 2017-07-13 14:37 | PN ---
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 No PO intake within 2-3 hrs of bedtime. Selected Entries 07/12/17 07/12/17 07/12/17 06:00 10:00 14:43 Breakfast Lunch Temperature 96.4 F L 97 F L 98.4 F 07/12/17 07/12/17 07/13/17 17:25 22:00 05:47 Breakfast Lunch Temperature 97.5 F L 97.9 F 98.1 F 07/13/17 07/13/17 07/13/17 10:00 10:41 14:34 Breakfast 75% Lunch 75% Temperature 98 F 98.0 F Laboratory Tests 07/11/17 07/12/17 07/13/17 06:45 06:45 06:30 WBC 6.9 13.2 H D 11.6 H
--- NOTE | 2017-07-13 15:27 | PN ---
Teaching Attending Note Name of Resident: Jeff Anglin ATTENDING PHYSICIAN STATEMENT I saw and evaluated the patient. I reviewed the resident's note and discussed the case with the resident. I agree with the resident's findings and plan as documented. SUBJECTIVE: Awake, alert Appears slightly dyspneic at rest on nasal cannula No c/o dysuria/ hemtauria OBJECTIVE: Cor S1S2 scatterred rhonchi Abdomen soft, no suprapubic tenderness ASSESSMENT AND PLAN: ESBL UTI Completing 7d course ertapenem
[2017-07-13] MEDS: ATORVASTATIN CA 40 MG TABLET (FP) PO SCH (21:47)
[2017-07-13] MEDS: MELATONIN 5 MG TABLETS PO SCH (22:53)
[2017-07-14 00:06] LABS: A/G RATIO 1.1 (0.7-1.7); ALBUMIN 2.5 g/dL (2.9-4.4); ALPHA-1-GLOBULIN 0.3 g/dL (0.0-0.4); BETA GLOBULIN 0.9 g/dL (0.7-1.3); GAMMA GLOBULIN 0.5 g/dL (0.4-1.8); GLOBULIN, TOTAL 2.5 g/dL (2.2-3.9); M-SPIKE Not Observed g/dL (Not Observed)
[2017-07-14] MEDS: HEPARIN NA (PORCINE) 5,000 UNITS/ML 1ML VIAL SQ SCH ×3 (02:05→18:03)
[2017-07-14] MEDS: LEVOTHYROXINE NA 100 MCG TABLET (FP) PO SCH (06:16)
[2017-07-14 07:29] LABS: MCH 22.6 pg (25.7-33.7); MCHC 30.7 g/dl (32.0-36.0); MEAN CELL VOLUME 73.4 fl (80-96); MEAN PLT VOLUME 8.7 fl (7.5-11.1); PLATELET COUNT 379 K/MM3 (134-434); RDW 19.8 % (11.6-15.6); WHITE BLOOD COUNT 12.5 K/mm3 (4.0-10.0)
[2017-07-14 08:20] LABS: ALBUMIN 2.4 g/dl (3.4-5.0); ANION GAP 11 (8-16); CALCIUM 9.5 mg/dL (8.5-10.1); CO2 24 mmol/L (21-32); CREATININE 1.1 mg/dL (0.55-1.02); GLUCOSE,RANDOM 101 mg/dL (74-106); SGOT/AST 39 U/L (15-37); SGPT/ALT 57 U/L (12-78)
[2017-07-14 08:30] LABS: ALK PHOS 157 U/L (45-117); BILIRUBIN,TOTAL 0.4 mg/dL (0.2-1.0); THYROID STIMULATING HORMONE 1.49 uIU/ml (0.358-3.74); TOT PROT 5.4 g/dl (6.4-8.2)
--- NOTE | 2017-07-14 08:48 | PN ---
Progress Note (short form) - Note Progress Note: Patient feels a little better today with less coughing but feels weak. Today is the last day of the IV Antibiotics. She is on IV steroids now Q12H. Loooking to walk in hallways today with PT. I don't think we will be able to get acceptable renal levels at this time due to Lasix and IV steroids in preparation for CT with contrast for liver mass evaluation. Hb up slightly to 8.1GM with 2 days of IV iron. On Exam: Vital Signs Temp 98.2 F 07/14/17 06:00 Pulse 72 07/14/17 06:00 Resp 20 07/14/17 06:00 BP 142/64 07/14/17 06:00 Pulse Ox 97 07/13/17 21:00 Intake & Output 07/13/17 07/13/17 07/14/17 11:59 23:59 11:59 Intake Total 400 800 100 Output Total 250 Balance 400 550 100 Weight 159 lb 12.8 oz 161 lb 8 oz Intake: IVPB 150 Oral 400 650 100 Output: Urine 250 Void 250 Other: Voiding Method Toilet Toilet # Unmeasured Voids Void 2 2 1 Weight Measurement Method Built in Bedscale Built in Bedscale Alert slight smile today Chest; Some basilar rales Cor Reg Abd; soft Ext: No edema Abnormal Lab Results 07/12/17 07/13/17 07/14/17 06:45 06:30 05:35 WBC 11.6 H RBC 3.30 L Hgb 7.5 L Hct 24.1 L MCV 72.9 L MCH 22.8 L MCHC 31.3 L RDW 19.9 H Neutrophils % (Manual) 88 H D Monocytes % (Manual) 3 L Chloride 109 H BUN 41 H Creatinine 1.1 H AST 39 H Alkaline Phosphatase 157 H Serum Total Protein 5.0 L Total Protein 5.4 L Albumin 2.5 L 2.4 L IgG 568 L 07/14/17 05:35 WBC 12.5 H RBC 3.57 L Hgb 8.1 L Hct 26.2 L MCV 73.4 L MCH 22.6 L MCHC 30.7 L RDW 19.8 H Neutrophils % (Manual) Monocytes % (Manual) Chloride BUN Creatinine AST Alkaline Phosphatase Serum Total Protein Total Protein Albumin IgG IMP: Acute ESBL UTI COPD with Acute Exacerbation Pneumonia resolving ASHD Iron Def Anemia PLAN: D/C antibiotic after today Stool Guiac F/U Lab PT in hallways ??[facility] post hospital Problem List - Problems (1) COPD (chronic obstructive pulmonary disease) Code(s): J44.9 - CHRONIC OBSTRUCTIVE PULMONARY DISEASE, UNSPECIFIED Qualifiers : COPD type: COPD with acute exacerbation Qualified Code(s): J44.1 - Chronic obstructive pulmonary disease with (acute) exacerbation; J44.1 - Chronic obstructive pulmonary disease with (acute) exacerbation; J44.1 - Chronic obstructive pulmonary disease with (acute) exacerbation; J44.1 - Chronic obstructive pulmonary disease with (acute) exacerbation (2) Anxiety about health Code(s): F41.8 - OTHER SPECIFIED ANXIETY DISORDERS (3) Congestive cardiac failure Code(s): I50.9 - HEART FAILURE, UNSPECIFIED Qualifiers: Congestive heart failure type: diastolic Congestive heart failure chronicity: chronic Qualified Code(s): I50.32 - Chronic diastolic ( congestive) heart failure; I50.32 - Chronic diastolic (congestive) heart failure ; I50.32 - Chronic diastolic (congestive) heart failure; I50.32 - Chronic diastolic (congestive) heart failure (4) Pneumonia Code(s): J18.9 - PNEUMONIA, UNSPECIFIED ORGANISM Qualifiers: Pneumonia type: due to unspecified organism Laterality: unspecified laterality Lung location: unspecified part of lung Qualified Code(s) : J18.9 - Pneumonia, unspecified organism; J18.9 - Pneumonia, unspecified organism (5) UTI (urinary tract infection) Code(s): N39.0 - URINARY TRACT INFECTION, SITE NOT SPECIFIED (6) Iron (Fe) deficiency anemia Code(s): D50.9 - IRON DEFICIENCY ANEMIA, UNSPECIFIED
[2017-07-14 09:01] LABS: METAMYELOCYTE 1 % (0-2); MYELOCYTE 1 % (0-2); PLATELET ESTIMATE ADEQUATE (NORMAL); TOTAL CELLS COUNTED 100
[2017-07-14] MEDS ORDERED: PT OWN MED DRAWER 7, Y5N ONE ×3 (09:01→14:05)
--- NOTE | 2017-07-14 09:05 | PN ---
Physical Exam: INFECTIOUS DISEASE SUBJECTIVE: Patient seen and examined. No fevers/chills/CP/SOB. OBJECTIVE: Vital Signs Period Temp Pulse Resp BP Sys/Rios Pulse Ox Last 24 Hr 97.9 F-98.2 F 66-77 18-22 130-142/52-68 97 GEN: AAOx3, NAD, lying in bed HEENT: PERRLA, EOMi CV: Irregularly Irregular rhythm LUNG: Crackles bilaterally ABD: Soft, NT, ND MSK: No edema Laboratory Results - last 24 hr 07/12/17 07/13/17 07/14/17 06:45 06:30 05:35 WBC 11.6 H RBC 3.30 L Hgb 7.5 L Hct 24.1 L MCV 72.9 L MCH 22.8 L MCHC 31.3 L RDW 19.9 H Plt Count 304 MPV 8.5 Total Counted 100 Neutrophils % Neutrophils % (Manual) 88 H D Lymphocytes % Lymphocytes % (Manual) 8 D Monocytes % (Manual) 3 L Myelocytes % (Man) 1 Hypochromia 1+ Platelet Estimate Adequate Platelet Comment No clumping noted Polychromasia F Anisocytosis 1+ Microcytosis 1+ Sodium 144 Potassium 4.8 Chloride 109 H Carbon Dioxide 24 Anion Gap 11 BUN 41 H Creatinine 1.1 H Creat Clearance w eGFR 47.43 Random Glucose 101 Calcium 9.5 Total Bilirubin 0.4 D AST 39 H ALT 57 Alkaline Phosphatase 157 H Serum Total Protein 5.0 L Total Protein 5.4 L Albumin 2.5 L 2.4 L Globulin 2.5 Albumin/Globulin Ratio 1.1 Amwpu-8-Zmwexeoea 0.3 Nsdws-4-Xvthxfyzk 0.7 Beta Globulins 0.9 Gamma Globulins 0.5 TSH 1.49 D IgG 568 L IgA 169 IgM 46 ABY M-Ricky Not observed ABY Comments Serum ABY Interpret 07/14/17 05:35 WBC 12.5 H RBC 3.57 L Hgb 8.1 L Hct 26.2 L MCV 73.4 L MCH 22.6 L MCHC 30.7 L RDW 19.8 H Plt Count 379 D MPV 8.7 Total Counted 100 Neutrophils % No Result Required. Neutrophils % (Manual) 83 H Lymphocytes % No Result Required. Lymphocytes % (Manual) 9 Monocytes % (Manual) 6 D Myelocytes % (Man) 1 Hypochromia Platelet Estimate Adequate Platelet Comment Polychromasia Anisocytosis Microcytosis Sodium Potassium Chloride Carbon Dioxide Anion Gap BUN Creatinine Creat Clearance w eGFR Random Glucose Calcium Total Bilirubin AST ALT Alkaline Phosphatase Serum Total Protein Total Protein Albumin Globulin Albumin/Globulin Ratio Gpfmc-2-Lnyeacoyr Zcnus-7-Rhasmxmpl Beta Globulins Gamma Globulins TSH IgG IgA IgM ABY M-Ricky ABY Comments Serum ABY Interpret Active Medications Generic Name Dose Route Start Last Admin Trade Name Freq PRN Reason Stop Dose Admin Acetaminophen 650 mg 07/05/17 15:58 07/13/17 04:58 Tylenol - PO 650 mg Q4H PRN Administration FEVER OR PAIN Arformoterol Tartrate 1 amp 07/10/17 13:00 07/13/17 22:00 Brovana (Restricted To Pulmonology/Resp) - NEB 1 amp BID HUNTER Administration Atorvastatin Calcium 40 mg 07/05/17 22:00 07/13/17 21:47 Lipitor - PO 40 mg HS HUNTER Administration Cyanocobalamin 1,000 mcg 07/06/17 10:00 07/13/17 10:01 Vitamin B12 - PO 1,000 mcg DAILY HUNTER Administration Escitalopram Oxalate 20 mg 07/06/17 10:00 07/13/17 10:01 Lexapro - PO 20 mg DAILY HUNTER Administration Furosemide 20 mg 07/13/17 11:00 07/13/17 12:09 Lasix - PO 20 mg DAILY HUNTER Administration Guaifenesin 10 ml 07/08/17 09:15 07/11/17 10:38 Robitussin - PO 10 ml Q4H PRN Administration COUGH Heparin Sodium (Porcine) 5,000 unit 07/05/17 18:00 07/14/17 02:05 Heparin - SQ 5,000 unit Q8H-IV HUNTER Administration Hydralazine HCl 50 mg 07/12/17 22:00 07/13/17 21:54 Apresoline - PO 50 mg BID HUNTER Administration Ertapenem 1 gm/ Sodium 50 mls @ 100 mls/hr 07/08/17 14:15 07/13/17 10:02 Chloride IVPB 100 mls/hr DAILY HUNTER Administration Protocol Levothyroxine Sodium 100 mcg 07/06/17 07:00 07/14/17 06:16 Synthroid - PO 100 mcg DAILY@0700 HUNTER Administration Melatonin 10 mg 07/05/17 22:00 07/13/17 22:53 Melatonin PO 10 mg HS HUNTER Administration Methylprednisolone Sodium Succinate 40 mg 07/13/17 22:00 07/13/17 21:46 Solu-Medrol - IVPB 40 mg Q12H HUNTER Administration Non-Formulary Medication 9.9 ml 07/06/17 10:00 Fluticasone Furoate [Flonase Sensimist] NS DAILY HUNTER Ondansetron HCl 4 mg 07/07/17 01:50 Zofran - PO Q6H PRN Pantoprazole Sodium 40 mg 07/05/17 22:00 07/13/17 21:46 Protonix - PO 40 mg BID HUNTER Administration Polyethylene Glycol 17 gm 07/05/17 22:00 07/13/17 22:53 Miralax (For Daily Use) - PO Not Given BID HUNTER Tiotropium [place] 1 puff 07/07/17 13:00 07/13/17 10:02 Spiriva - IH 1 puff DAILY HUNTER Administration Valsartan 320 mg 07/11/17 10:00 07/13/17 10:01 Diovan - PO 320 mg DAILY HUNTER Administration Microbiology 07/05/17 15:05 Urine - Urine Clean Catch Urine Culture - Final Escherichia Coli Esbl Surgical Pathologist Laboratory Tests 07/13/17 07/14/17 07/14/17 06:30 05:35 05:35 WBC 11.6 H 12.5 H Creatinine 1.1 H Creat Clearance w eGFR 47.43 ASSESSMENT/PLAN: Ms. 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 She is admitted for sepsis 2/ 2 UTI # ESBL UTI - +Urine cultures - Day 6 Ertapenem, continue for 1 more day for total 7 day coverage Discussed w/ Dr Mathew. Will follow Jeff Anglin MD - PGY1, Infectious Disease Visit type - Emergency Visit Emergency Visit: No - New Patient This patient is new to me today: No - Critical Care Critical Care patient: No - Discharge Referral Referred to [facility] No
[2017-07-14 09:28] LABS: FREE T4 1.35 ng/dl (0.76-1.46)
[2017-07-14] MEDS: ERTAPENEM SODIUM 1 GM in SODIUM CHLORIDE 50 ML IVPB SCH (10:00)
[2017-07-14] MEDS: CYANOCOBALAMIN 1,000 MCG TABLET (FP) PO SCH (10:01)
[2017-07-14] MEDS: VALSARTAN 160 MG TABLET (UD) PO SCH (10:01)
[2017-07-14] MEDS: FUROSEMIDE 20 MG TABLET (FP) PO SCH (10:01)
[2017-07-14] MEDS: ESCITALOPRAM OXALATE 20 MG TABLET (FP) PO SCH (10:01)
[2017-07-14] MEDS: hydrALAZINE HCL 50 MG TABLET (FP) PO SCH ×2 (10:01→22:09)
[2017-07-14] MEDS: PANTOPRAZOLE 40 MG TABLET (FP) PO SCH ×2 (10:01→22:09)
[2017-07-14] MEDS: TIOTROPIUM BROMIDE 18 MCG/INH (DEVICE W/ 5 CAPSULES) IH SCH (10:02)
[2017-07-14] MEDS: methylPREDNISolone NA SUCC 40 MG/1 ML VIAL IVPB SCH ×2 (10:03→22:09)
[2017-07-14] MEDS: ARFORMOTEROL TARTRATE 15 MCG/2 ML VIAL NEB SCH ×2 (10:50→22:05)
--- NOTE | 2017-07-14 11:00 | PN ---
Progress Note (short form) - Note Progress Note: s: no cp palps dizzy; mild sob/cough o: Vital Signs Period Temp Pulse Resp BP Sys/Rios Pulse Ox Last 24 Hr 97.8 F-98.2 F 66-80 18-20 136-143/55-68 97 nad no jvd rrr s1s2 no mrg diminshed air mov't, trace wheezes. bibasilar dullness. nl effort aaox3 no le e/c/c abd nt nd pos bs no jaundice diaphoresis Current Medications Generic Name Dose Route Start Last Admin Trade Name Freq PRN Reason Stop Dose Admin Acetaminophen 650 mg 07/05/17 15:58 07/13/17 04:58 Tylenol - PO 650 mg Q4H PRN Administration FEVER OR PAIN Arformoterol Tartrate 1 amp 07/10/17 13:00 07/13/17 22:00 Brovana (Restricted To Pulmonology/Resp) - NEB 1 amp BID HUNTER Administration Atorvastatin Calcium 40 mg 07/05/17 22:00 07/13/17 21:47 Lipitor - PO 40 mg HS HUNTER Administration Cyanocobalamin 1,000 mcg 07/06/17 10:00 07/14/17 10:01 Vitamin B12 - PO 1,000 mcg DAILY HUNTER Administration Escitalopram Oxalate 20 mg 07/06/17 10:00 07/14/17 10:01 Lexapro - PO 20 mg DAILY HUNTER Administration Furosemide 20 mg 07/13/17 11:00 07/14/17 10:01 Lasix - PO 20 mg DAILY HUNTER Administration Guaifenesin 10 ml 07/08/17 09:15 07/11/17 10:38 Robitussin - PO 10 ml Q4H PRN Administration COUGH Heparin Sodium (Porcine) 5,000 unit 07/05/17 18:00 07/14/17 10:03 Heparin - SQ 5,000 unit Q8H-IV HUNTER Administration Hydralazine HCl 50 mg 07/12/17 22:00 07/14/17 10:01 Apresoline - PO 50 mg BID HUNTER Administration Ertapenem 1 gm/ Sodium 50 mls @ 100 mls/hr 07/08/17 14:15 07/13/17 10:02 Chloride IVPB 100 mls/hr DAILY HUNTER Administration Protocol Levothyroxine Sodium 100 mcg 07/06/17 07:00 07/14/17 06:16 Synthroid - PO 100 mcg DAILY@0700 HUNTER Administration Melatonin 10 mg 07/05/17 22:00 07/13/17 22:53 Melatonin PO 10 mg HS HUNTER Administration Methylprednisolone Sodium Succinate 40 mg 07/13/17 22:00 07/14/17 10:03 Solu-Medrol - IVPB 40 mg Q12H HUNTER Administration Non-Formulary Medication 9.9 ml 07/06/17 10:00 Fluticasone Furoate [Flonase Sensimist] NS DAILY HUNTER Ondansetron HCl 4 mg 07/07/17 01:50 Zofran - PO Q6H PRN Pantoprazole Sodium 40 mg 07/05/17 22:00 07/14/17 10:01 Protonix - PO 40 mg BID HUNTER Administration Polyethylene Glycol 17 gm 07/05/17 22:00 07/13/17 22:53 Miralax (For Daily Use) - PO Not Given BID HUNTER Tiotropium [place] 1 puff 07/07/17 13:00 07/14/17 10:02 Spiriva - IH 1 puff DAILY HUNTER Administration Valsartan 320 mg 07/11/17 10:00 07/14/17 10:01 Diovan - PO 320 mg DAILY HUNTER Administration CBC, BMP 07/14/17 05:35 07/14/17 05:35 ekg: possible ectopic atrial rhythm with short pr interval and pac's. borderline prolonged qt. no acute ischemic changes. echo 03/2017: nl lv/rv, mild ar/mr mibi 03/2017: nl mpi, nl lvef A/P 81 f hx htn, hld, hypothyroid, cad s/p pci 2007 (lad), MR s/p repair, le edema/ venous insuff, chronic URIs from chronic laryngeal reflux and recent admit for pna last week p/w worsening sob thought to have persistent pna with superimposed uti. sob, pna, copd: - initially did not appear to be 2/2 chf, IVF given when pt hypotensive. BP now improved. - on abx for pna, uti - mgm't of possible contribution from copd per pmd. - cont po lasix h/o acute diastolic chf likely secondary to hypertensive emergency (04/19): -recent echo and mibi unremarkable -cont po lasix chronic LE edema/venous insuff: -stable currently htn: -Initially bp's held for hypotension, now being added back on. - of note, bystolic stopped on prior admit due to 2/2 bradycardia, also with h/ o worsened edema with ccb - 07/12: bp still suboptimal on valsartan and low dose hydralazine. Will increase hydralazine to 50 bid. - 07/13-: bp improved, con't current regimen, con't to monitor for need to uptitrate (still not on prior home regimen) cad s/p remote pci: -no recent angina or ischemia (03/20). Echo 03/2017 without significant abnormality. -trop currently normal, no ekg changes -cont home regimen statin, arb - will hold ASA in light of worsening anemia. On IV iron transfusions per heme.
--- NOTE | 2017-07-14 11:06 | PN ---
Progress Note (short form) - Note Progress Note: PULMONARY ASKED BY GI TO RENDER AN OPINION ON IMPENDING EGD/COLONOSCOPY (FLIP) TO EVALUATE FOR FE DEF ANEMIA VSS/AFEBRILE ANICTERIC DISTANT BREATH SOUNDS WITH SCATTERED RHONCHI BILATERALLY S1S2 RSR BS+ NONTENDER NO EDEMA LABS/MEDS/REPORTS/IMAGES/MICRO REVIEWED IMP ACUTE HYPOXEMIC RESPIRATORY FAILURE IMPROVED PNEUMONIA HAP/LIKELY ASPIRATION COMPONENT COPD UTI WITH BACTEREMIA DIASTOLIC HF/MR REPAIR ASHD S/P STENT LAD GERD/ASPIRATION ACUTE KIDNEY INJURY ANEMIA FE DEFICIENT PLAN IV ANTIBIOTICS PER ID INHALED BRONCHODILATORS O2 MEDROL MONITOR LYES,RENAL FUNCTION DUE TO MULTIPLE CO-MORBID CONDITIONS WOULD PROCEED WITH EGD AT THIS TIME COLONOSCOPY WOULD BE CONSIDERED BASED ON ABOVE FINDINGS MAY ALSO CONSIDER OUTPATIENT PET SCAN TO EVAL COLON/LIVER LESION HAVE DISCUSSED WITH DR JOSH HAGAN MD
--- NOTE | 2017-07-14 11:15 | PN ---
GI Progress Note Subjective: GI NOte: Feels a bit stronger with Hb rise. Denies any overt bleeding. Azotemia still precludes CT with contrast. Given the spectrum of a liver lesion, new anemia, personal h/o adenomas and FH of colon cancer panendoscopy has to be considered. I discussed the risks with Michaela including perforation, hemorrhage and cardiorespiratory failure related to anesthesia. She has granted informed consents for both procedures. I then discussed the feasibility of anesthesia with Dr. Krause. After discussion we have decided to attempt the EGD alone first to exclude the development of an ulcer, erosive gastritis or a UGI neoplasm. I have also discussed the case with Dr Claire and will ask cardiology to opine. - Objective Vital Signs: Vital Signs Temperature 97.8 F 07/14/17 09:52 Pulse Rate 80 07/14/17 09:52 Respiratory Rate 18 07/14/17 09:52 Blood Pressure 143/66 07/14/17 09:52 O2 Sat by Pulse Oximetry (%) 97 07/13/17 21:00 Laboratory Tests 04/26/14 06/22/17 07/12/17 17:16 06:00 06:45 Hgb 7.5 L BUN Creatinine Total Bilirubin AST ALT Alkaline Phosphatase C-Reactive Protein < 0.3 Tumor Marker AFP 5.3 Carcinoembryonic Ag 2.0 07/12/17 07/14/17 07/14/17 06:45 05:35 05:35 Hgb 8.1 L BUN 41 H Creatinine 1.1 H Total Bilirubin 0.4 D AST 39 H ALT 57 Alkaline Phosphatase 163 H 157 H C-Reactive Protein Tumor Marker AFP Carcinoembryonic Ag Constitutional: Anxious Cardiovascular: Yes: Regular Rate and Rhythm Respiratory: Yes: CTA Bilaterally ...Auscultate: Yes: Normoactive Bowel Sounds ...Palpate: Yes: Soft, Other (nontender) Labs: CBC, BMP 07/14/17 05:35 07/14/17 05:35 INR, PTT INR 1.21 (0.82-1.09) H 07/05/17 14:00 Assessment/Plan I have scheduled an EGD for 07/16 and colonoscopy if feasible for 07/19. Will ask cardiology for clearance as well.
--- NOTE | 2017-07-14 12:02 | EKG ---
Test Reason : Blood Pressure : / mmHG Vent. Rate : 075 BPM Atrial Rate : 075 BPM P-R Int : 164 ms QRS Dur : 084 ms QT Int : 406 ms P-R-T Axes : 075 022 029 degrees QTc Int : 453 ms SINUS RHYTHM WITH PREMATURE SUPRAVENTRICULAR COMPLEXES OTHERWISE NORMAL ECG WHEN COMPARED WITH ECG OF 07-JUL-2017 09:09, QT HAS SHORTENED Confirmed by LUDWIG CUENCA MD ([id number]) on 07/14/2017 12:01:58 PM Referred By: Phani PEDRAZA Confirmed By:LUDWIG CUENCA MD
--- NOTE | 2017-07-14 12:04 | PN ---
Progress Note (short form) - Note Progress Note: Patient seen and examined feels a little bit better. GEN: NAD HEENT: PERRLA, EOMi CV: Irregularly Irregular rhythm LUNG: Crackles bilaterally ABD: Soft, NT, ND MSK: No edema Last Vital Signs Temp Pulse Resp BP Pulse Ox 97.8 F 80 18 143/66 97 07/14/17 09:52 07/14/17 09:52 07/14/17 09:52 07/14/17 09:52 07/13/17 21:00 CBC, BMP 07/14/17 05:35 07/14/17 05:35 Current Medications Generic Name Dose Route Start Last Admin Trade Name Freq PRN Reason Stop Dose Admin Acetaminophen 650 mg 07/05/17 15:58 07/13/17 04:58 Tylenol - PO 650 mg Q4H PRN Administration FEVER OR PAIN Arformoterol Tartrate 1 amp 07/10/17 13:00 07/14/17 10:50 Brovana (Restricted To Pulmonology/Resp) - NEB 1 amp BID HUNTER Administration Atorvastatin Calcium 40 mg 07/05/17 22:00 07/13/17 21:47 Lipitor - PO 40 mg HS HUNTER Administration Cyanocobalamin 1,000 mcg 07/06/17 10:00 07/14/17 10:01 Vitamin B12 - PO 1,000 mcg DAILY HUNTER Administration Escitalopram Oxalate 20 mg 07/06/17 10:00 07/14/17 10:01 Lexapro - PO 20 mg DAILY HUNTER Administration Furosemide 20 mg 07/13/17 11:00 07/14/17 10:01 Lasix - PO 20 mg DAILY HUNTER Administration Guaifenesin 10 ml 07/08/17 09:15 07/11/17 10:38 Robitussin - PO 10 ml Q4H PRN Administration COUGH Heparin Sodium (Porcine) 5,000 unit 07/05/17 18:00 07/14/17 10:03 Heparin - SQ 5,000 unit Q8H-IV HUNTER Administration Hydralazine HCl 50 mg 07/12/17 22:00 07/14/17 10:01 Apresoline - PO 50 mg BID HUNTER Administration Ertapenem 1 gm/ Sodium 50 mls @ 100 mls/hr 07/08/17 14:15 07/13/17 10:02 Chloride IVPB 100 mls/hr DAILY HUNTER Administration Protocol Iron Sucrose 100 mg/ Sodium 100 mls @ 200 mls/hr 07/14/17 12:02 Chloride IVPB 07/14/17 12:31 ONCE ONE Levothyroxine Sodium 100 mcg 07/06/17 07:00 07/14/17 06:16 Synthroid - PO 100 mcg DAILY@0700 HUNTER Administration Melatonin 10 mg 07/05/17 22:00 07/13/17 22:53 Melatonin PO 10 mg HS HUNTER Administration Methylprednisolone Sodium Succinate 40 mg 07/13/17 22:00 07/14/17 10:03 Solu-Medrol - IVPB 40 mg Q12H HUNTER Administration Non-Formulary Medication 9.9 ml 07/06/17 10:00 Fluticasone Furoate [Flonase Sensimist] NS DAILY HUNTER Ondansetron HCl 4 mg 07/07/17 01:50 Zofran - PO Q6H PRN Pantoprazole Sodium 40 mg 07/05/17 22:00 07/14/17 10:01 Protonix - PO 40 mg BID HUNTER Administration Polyethylene Glycol 17 gm 07/05/17 22:00 07/13/17 22:53 Miralax (For Daily Use) - PO Not Given BID HUNTER Tiotropium [place] 1 puff 07/07/17 13:00 07/14/17 10:02 Spiriva - IH 1 puff DAILY HUNTER Administration Valsartan 320 mg 07/11/17 10:00 07/14/17 10:01 Diovan - PO 320 mg DAILY HUNTER Administration Fe deficiency anemia Possible liver hemangioma PNA/UTI COPD/CHF CAD. -iron studies noted. low iron/ low ferritin. appropriate reticulocytosis, no evidence of hemolysis. -Hgb slightly better -'s consult note noted. -will dose IV iron again today.
[2017-07-14] MEDS ORDERED: IRON SUCROSE INJECTION 100 MG in SODIUM CHLORIDE 95 ML IVPB ONE (12:15)
[2017-07-14] MEDS: POLYETHYLENE GLYCOL 3350 119 GM BTL PO SCH ×2 (14:16→22:10)
[2017-07-14] MEDS: ACETAMINOPHEN 325 MG TABLET (FP) PO PRN (14:44)
[2017-07-14 16:33] LABS: Hgb A2 1.8 % (0.7-3.1)
--- NOTE | 2017-07-14 20:20 | PN ---
Teaching Attending Note Name of Resident: Jeff Anglin ATTENDING PHYSICIAN STATEMENT I saw and evaluated the patient. I reviewed the resident's note and discussed the case with the resident. I agree with the resident's findings and plan as documented. SUBJECTIVE: No complaints No dysuria Slightly dyspneic at rest Afebrile OBJECTIVE: Cor S1S2 scatterred rhonchi abdomen soft, non tender ASSESSMENT AND PLAN: ESBL UTI Complete 7d course ertapenem
[2017-07-14] MEDS: ATORVASTATIN CA 40 MG TABLET (FP) PO SCH (22:09)
[2017-07-14] MEDS: MELATONIN 5 MG TABLETS PO SCH (22:09)
[2017-07-15] MEDS: HEPARIN NA (PORCINE) 5,000 UNITS/ML 1ML VIAL SQ SCH ×3 (01:29→17:52)
[2017-07-15] MEDS: LEVOTHYROXINE NA 100 MCG TABLET (FP) PO SCH (06:53)
[2017-07-15 07:45] LABS: MCHC 31.3 g/dl (32.0-36.0); MEAN CELL VOLUME 73.4 fl (80-96); MEAN PLT VOLUME 8.3 fl (7.5-11.1); PLATELET COUNT 351 K/MM3 (134-434); RDW 19.8 % (11.6-15.6); WHITE BLOOD COUNT 9.2 K/mm3 (4.0-10.0)
--- NOTE | 2017-07-15 08:18 | PN ---
Physical Exam: INFECTIOUS DISEASE SUBJECTIVE: Patient seen and examined. States her SOB and cough have not improved much. She feels overall tired. VSS overnight OBJECTIVE: Vital Signs Period Temp Pulse Resp BP Sys/Rios Pulse Ox Last 24 Hr 97.7 F-98.6 F 70-90 16-20 135-164/55-78 97-97 GEN: AAOx3, NAD, lying in bed HEENT: PERRLA, EOMi CV: Irregularly Irregular rhythm LUNG: Crackles bilaterally ABD: Soft, NT, ND MSK: No edema Active Medications Generic Name Dose Route Start Last Admin Trade Name Freq PRN Reason Stop Dose Admin Acetaminophen 650 mg 07/05/17 15:58 07/14/17 14:44 Tylenol - PO 650 mg Q4H PRN Administration FEVER OR PAIN Arformoterol Tartrate 1 amp 07/10/17 13:00 07/14/17 22:05 Brovana (Restricted To Pulmonology/Resp) - NEB 1 amp BID HUNTER Administration Atorvastatin Calcium 40 mg 07/05/17 22:00 07/14/17 22:09 Lipitor - PO 40 mg HS HUNTER Administration Cyanocobalamin 1,000 mcg 07/06/17 10:00 07/14/17 10:01 Vitamin B12 - PO 1,000 mcg DAILY HUNTER Administration Escitalopram Oxalate 20 mg 07/06/17 10:00 07/14/17 10:01 Lexapro - PO 20 mg DAILY HUNTER Administration Furosemide 20 mg 07/13/17 11:00 07/14/17 10:01 Lasix - PO 20 mg DAILY HUNTER Administration Guaifenesin 10 ml 07/08/17 09:15 07/11/17 10:38 Robitussin - PO 10 ml Q4H PRN Administration COUGH Heparin Sodium (Porcine) 5,000 unit 07/05/17 18:00 07/15/17 01:29 Heparin - SQ 5,000 unit Q8H-IV HUNTER Administration Hydralazine HCl 50 mg 07/12/17 22:00 07/14/17 22:09 Apresoline - PO 50 mg BID HUNTER Administration Ertapenem 1 gm/ Sodium 50 mls @ 100 mls/hr 07/08/17 14:15 07/14/17 10:00 Chloride IVPB 100 mls/hr DAILY HUNTER Administration Protocol Levothyroxine Sodium 100 mcg 07/06/17 07:00 07/15/17 06:53 Synthroid - PO 100 mcg DAILY@0700 HUNTER Administration Melatonin 10 mg 07/05/17 22:00 07/14/17 22:09 Melatonin PO 10 mg HS HUNTER Administration Methylprednisolone Sodium Succinate 40 mg 07/13/17 22:00 07/14/17 22:09 Solu-Medrol - IVPB 40 mg Q12H HUNTER Administration Non-Formulary Medication 9.9 ml 07/06/17 10:00 Fluticasone Furoate [Flonase Sensimist] NS DAILY HUNTER Ondansetron HCl 4 mg 07/07/17 01:50 Zofran - PO Q6H PRN Pantoprazole Sodium 40 mg 07/05/17 22:00 07/14/17 22:09 Protonix - PO 40 mg BID HUNTER Administration Polyethylene Glycol 17 gm 07/05/17 22:00 07/14/17 22:10 Miralax (For Daily Use) - PO Not Given BID HUNTER Tiotropium [place] 1 puff 07/07/17 13:00 07/14/17 10:02 Spiriva - IH 1 puff DAILY HUNTER Administration Valsartan 320 mg 07/11/17 10:00 07/14/17 10:01 Diovan - PO 320 mg DAILY HUNTER Administration Microbiology 07/07/17 09:47 Urine For Antigen Detection Legionella Antigen - Final --> NEGATIVE 07/07/17 09:47 Urine For Antigen Detection Streptococcus pneumoniae Antigen (M - Final --> NEGATIVE 07/05/17 15:05 Urine - Urine Clean Catch Urine Culture - Final Escherichia Coli Esbl Lead Customer Service Representative Laboratory Tests 07/13/17 07/14/17 07/15/17 06:30 05:35 06:25 WBC 11.6 H 12.5 H 9.2 Hgb 7.5 L 8.1 L 7.8 L ASSESSMENT/PLAN: Ms. 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 She is admitted for sepsis 2/ 2 UTI # ESBL UTI - +Urine cultures - Last day of 7 day course of Ertapenem, will d/c further doses - Please CALL back if ID is further needed. Will discuss w/ Dr Mathew. Jeff Anglin MD - PGY1, Infectious Disease Visit type - Emergency Visit Emergency Visit: No - New Patient This patient is new to me today: No - Critical Care Critical Care patient: No - Discharge Referral Referred to [facility] No
--- NOTE | 2017-07-15 08:46 | PN ---
Progress Note (short form) - Note Progress Note: Patient is not coughing as much but HB trending down to 7.9GM in spite of 3 days of IV Iron. Seen by GI MD yesterday who feels that Endoscopy is indicated to look for a source of her Fe deficiency anemia.Her Respiratory status is probably the most improved it has been in the last 3 weeks. Pulmonary and Cardiology evaluations have been completed and she is scheduled for EGD Wednesday; if negative Colonoscopy Wednesday. There appears to be no medical contraindications to the endoscopy. On Exam: Vital Signs Temp 97.7 F 07/15/17 06:00 Pulse 70 07/15/17 06:00 Resp 20 07/15/17 06:00 BP 164/55 07/15/17 06:00 Pulse Ox 97 07/14/17 21:00 Intake & Output 07/14/17 07/14/17 07/15/17 11:59 23:59 11:59 Intake Total 100 1050 200 Balance 100 1050 200 Weight 161 lb 8 oz 161 lb Intake: IVPB 50 Oral 100 1000 200 Other: Voiding Method Toilet Toilet # Unmeasured Voids Void 1 1 Bowel Movement No Weight Measurement Method Built in Bedscale Built in Bedscale Alert Occ cough Chest: No rales at bases Cor: Reg Abd: Soft and nontender Ext; No edema Abnormal Lab Results 07/12/17 07/14/17 07/14/17 06:45 05:35 05:35 WBC 12.5 H RBC 3.57 L Hgb 8.1 L Hct 26.2 L MCV 73.4 L MCH 22.6 L MCHC 30.7 L RDW 19.8 H Neutrophils % (Manual) 83 H Hemoglobin A 98.2 H Chloride 109 H BUN 41 H Creatinine 1.1 H Iron 232 H TIBC < 249 L Iron Saturation > 93 H AST 39 H Alkaline Phosphatase 157 H Total Protein 5.4 L Albumin 2.4 L Free T3 07/14/17 07/15/17 05:35 06:25 WBC RBC 3.39 L Hgb 7.8 L Hct 24.9 L MCV 73.4 L MCH 23.0 L MCHC 31.3 L RDW 19.8 H Neutrophils % (Manual) Hemoglobin A Chloride BUN Creatinine Iron TIBC Iron Saturation AST Alkaline Phosphatase Total Protein Albumin Free T3 1.1 L IMP: COPD with Axcute Exacerbation Recent pneumonia resolved Acute ESBL UTI resolved Iron def Anemia Liver Mass ASHD Plan: F/U lab EGD AM Problem List - Problems (1) COPD (chronic obstructive pulmonary disease) Code(s): J44.9 - CHRONIC OBSTRUCTIVE PULMONARY DISEASE, UNSPECIFIED Qualifiers : COPD type: COPD with acute exacerbation Qualified Code(s): J44.1 - Chronic obstructive pulmonary disease with (acute) exacerbation; J44.1 - Chronic obstructive pulmonary disease with (acute) exacerbation; J44.1 - Chronic obstructive pulmonary disease with (acute) exacerbation; J44.1 - Chronic obstructive pulmonary disease with (acute) exacerbation (2) Anxiety about health Code(s): F41.8 - OTHER SPECIFIED ANXIETY DISORDERS (3) Congestive cardiac failure Code(s): I50.9 - HEART FAILURE, UNSPECIFIED Qualifiers: Congestive heart failure type: diastolic Congestive heart failure chronicity: chronic Qualified Code(s): I50.32 - Chronic diastolic ( congestive) heart failure; I50.32 - Chronic diastolic (congestive) heart failure ; I50.32 - Chronic diastolic (congestive) heart failure; I50.32 - Chronic diastolic (congestive) heart failure (4) Pneumonia Code(s): J18.9 - PNEUMONIA, UNSPECIFIED ORGANISM Qualifiers: Pneumonia type: due to unspecified organism Laterality: unspecified laterality Lung location: unspecified part of lung Qualified Code(s) : J18.9 - Pneumonia, unspecified organism; J18.9 - Pneumonia, unspecified organism (5) UTI (urinary tract infection) Code(s): N39.0 - URINARY TRACT INFECTION, SITE NOT SPECIFIED (6) Iron (Fe) deficiency anemia Code(s): D50.9 - IRON DEFICIENCY ANEMIA, UNSPECIFIED
--- NOTE | 2017-07-15 09:22 | PN ---
Progress Note (short form) - Note Progress Note: Overall breathing is slowly improving. No acute events overnight. Some residual cough. Intake & Output 07/12/17 07/13/17 07/14/17 07/15/17 23:59 23:59 23:59 23:59 Intake Total 760 1200 1150 200 Output Total 250 Balance 324 773 3887 200 Weight 163 lb 12.8 oz 159 lb 12.8 oz 161 lb 8 oz 161 lb Last Vital Signs Temp Pulse Resp BP Pulse Ox 97.7 F 70 20 164/55 97 07/15/17 06:00 07/15/17 06:00 07/15/17 06:00 07/15/17 06:00 07/14/17 21:00 Active Medications Acetaminophen (Tylenol -) 650 mg PO Q4H PRN PRN Reason: FEVER OR PAIN Last Admin: 07/14/17 14:44 Dose: 650 mg Arformoterol Tartrate (Brovana (Restricted To Pulmonology/Resp) -) 1 amp NEB BID [facility] Last Admin: 07/14/17 22:05 Dose: 1 amp Atorvastatin Calcium (Lipitor -) 40 mg PO HS [facility] Last Admin: 07/14/17 22:09 Dose: 40 mg Cyanocobalamin (Vitamin B12 -) 1,000 mcg PO DAILY [facility] Last Admin: 07/14/17 10:01 Dose: 1,000 mcg Escitalopram Oxalate (Lexapro -) 20 mg PO DAILY [facility] Last Admin: 07/14/17 10:01 Dose: 20 mg Furosemide (Lasix -) 20 mg PO DAILY [facility] Last Admin: 07/14/17 10:01 Dose: 20 mg Guaifenesin (Robitussin -) 10 ml PO Q4H PRN PRN Reason: COUGH Last Admin: 07/11/17 10:38 Dose: 10 ml Heparin Sodium (Porcine) (Heparin -) 5,000 unit SQ Q8H-IV [facility] Last Admin: 07/15/17 01:29 Dose: 5,000 unit Hydralazine HCl (Apresoline -) 50 mg PO BID [facility] Last Admin: 07/14/17 22:09 Dose: 50 mg Levothyroxine Sodium (Synthroid -) 100 mcg PO DAILY@0700 [facility] Last Admin: 07/15/17 06:53 Dose: 100 mcg Melatonin (Melatonin) 10 mg PO HS [facility] Last Admin: 07/14/17 22:09 Dose: 10 mg Methylprednisolone Sodium Succinate (Solu-Medrol -) 40 mg IVPB Q12H [facility] Last Admin: 07/14/17 22:09 Dose: 40 mg Non-Formulary Medication (Fluticasone Furoate [Flonase Sensimist]) 9.9 ml NS DAILY [facility] Ondansetron HCl (Zofran -) 4 mg PO Q6H PRN Pantoprazole Sodium (Protonix -) 40 mg PO BID [facility] Last Admin: 07/14/17 22:09 Dose: 40 mg Polyethylene Glycol (Miralax (For Daily Use) -) 17 gm PO BID [facility] Last Admin: 07/14/17 22:10 Dose: Not Given Tiotropium [place] (Spiriva -) 1 puff IH DAILY [facility] Last Admin: 07/14/17 10:02 Dose: 1 puff Valsartan (Diovan -) 320 mg PO DAILY [facility] Last Admin: 07/14/17 10:01 Dose: 320 mg Constitutional: Yes: NAD Eyes: Yes: WNL HENT: Yes: WNL Neck: Yes: WNL Cardiovascular: Yes: Regular Rate and Rhythm, S1, S2 Respiratory: Yes: Bibasilar crackles/Rhonchi Gastrointestinal: Yes: Normal Bowel Sounds, Soft Extremities: Yes: WNL Edema: No Lab: Laboratory Results - last 24 hr 07/12/17 07/14/17 07/14/17 06:45 05:35 05:35 WBC RBC Hgb Hct MCV MCH MCHC RDW Plt Count MPV Neutrophils % Lymphocytes % Hemoglobin A 98.2 H Hemoglobin A2 1.8 Hemoglobin C 0 Hemoglobin S 0 Variant Hemoglobin TNP Hemoglobin Interpret Maternal Rh 0 Hemoglobin Solubility Negative Sodium 144 Potassium 4.8 Chloride 109 H Carbon Dioxide 24 Anion Gap 11 BUN 41 H Creatinine 1.1 H Creat Clearance w eGFR 47.43 Random Glucose 101 Calcium 9.5 Iron 232 H TIBC < 249 L Iron Saturation > 93 H Total Bilirubin 0.4 D AST 39 H ALT 57 Alkaline Phosphatase 157 H Total Protein 5.4 L Albumin 2.4 L TSH 1.49 D Free T4 1.35 D Free T3 1.1 L 07/15/17 06:25 WBC 9.2 RBC 3.39 L Hgb 7.8 L Hct 24.9 L MCV 73.4 L MCH 23.0 L MCHC 31.3 L RDW 19.8 H Plt Count 351 MPV 8.3 Neutrophils % No Result Required. Lymphocytes % No Result Required. Hemoglobin A Hemoglobin A2 Hemoglobin C Hemoglobin S Variant Hemoglobin Hemoglobin Interpret Maternal Rh Hemoglobin Solubility Sodium Potassium Chloride Carbon Dioxide Anion Gap BUN Creatinine Creat Clearance w eGFR Random Glucose Calcium Iron TIBC Iron Saturation Total Bilirubin AST ALT Alkaline Phosphatase Total Protein Albumin TSH Free T4 Free T3 Problem List - Problems (1) COPD (chronic obstructive pulmonary disease) Code(s): J44.9 - CHRONIC OBSTRUCTIVE PULMONARY DISEASE, UNSPECIFIED Qualifiers : COPD type: COPD with acute exacerbation Qualified Code(s): J44.1 - Chronic obstructive pulmonary disease with (acute) exacerbation; J44.1 - Chronic obstructive pulmonary disease with (acute) exacerbation; J44.1 - Chronic obstructive pulmonary disease with (acute) exacerbation; J44.1 - Chronic obstructive pulmonary disease with (acute) exacerbation (2) HCAP (healthcare-associated pneumonia) Code(s): J18.9 - PNEUMONIA, UNSPECIFIED ORGANISM (3) Hypoxia Code(s): R09.02 - HYPOXEMIA (4) Pneumonia Code(s): J18.9 - PNEUMONIA, UNSPECIFIED ORGANISM Qualifiers: Pneumonia type: due to unspecified organism Laterality: unspecified laterality Lung location: unspecified part of lung Qualified Code(s) : J18.9 - Pneumonia, unspecified organism; J18.9 - Pneumonia, unspecified organism (5) Shortness of breath Code(s): R06.02 - SHORTNESS OF BREATH (6) Coronary artery disease Code(s): I25.10 - ATHSCL HEART DISEASE OF [place] CORONARY ARTERY W/O ANG PCTRS Qualifiers: Coronary Disease-Associated Artery/Lesion type: [place] artery [place] vs. transplanted heart: [place] heart Associated angina: without angina Qualified Code(s): I25.10 - Atherosclerotic heart disease of [place] coronary artery without angina pectoris; I25.10 - Atherosclerotic heart disease of [place] coronary artery without angina pectoris; I25.10 - Atherosclerotic heart disease of [place] coronary artery without angina pectoris (7) Dyspnea Code(s): R06.00 - DYSPNEA, UNSPECIFIED Qualifiers: Dyspnea type: dyspnea on exertion Qualified Code(s): R06.09 - Other forms of dyspnea; R06.09 - Other forms of dyspnea (8) Acute hypoxemic respiratory failure Code(s): J96.01 - ACUTE RESPIRATORY FAILURE WITH HYPOXIA (9) Hypothyroid Code(s): E03.9 - HYPOTHYROIDISM, UNSPECIFIED Qualifiers: Hypothyroidism type: acquired Qualified Code(s): E03.9 - Hypothyroidism, unspecified; E03.9 - Hypothyroidism, unspecified; E03.9 - Hypothyroidism, unspecified (10) Acute kidney injury Code(s): N17.9 - ACUTE KIDNEY FAILURE, UNSPECIFIED (11) Acute on chronic diastolic (congestive) heart failure Code(s): I50.33 - ACUTE ON CHRONIC DIASTOLIC (CONGESTIVE) HEART FAILURE (12) H/O heart artery stent Code(s): Z95.5 - PRESENCE OF CORONARY ANGIOPLASTY IMPLANT AND GRAFT (13) Hypertension Code(s): I10 - ESSENTIAL (PRIMARY) HYPERTENSION Qualifiers: Hypertension type: essential hypertension Qualified Code(s): I10 - Essential (primary) hypertension; I10 - Essential (primary) hypertension; I10 - Essential (primary) hypertension Assessment/Plan IMP ACUTE HYPOXEMIC RESPIRATORY FAILURE IMPROVING PNEUMONIA HAP COPD UTI WITH BACTEREMIA DIASTOLIC HF ASHD S/P STENT GERD ACUTE KIDNEY INJURY PLAN IV ANTIBIOTICS PER ID INHALED BRONCHODILATORS O2 MEDROL TAPER to OD MONITOR LYES,RENAL FUNCTION NO PULMONARY CONTRAINDICATION FOR ENDOSCOPY DR SHOEMAKER
--- NOTE | 2017-07-15 10:22 | PN ---
Progress Note (short form) - Note Progress Note: s: no cp palps dizzy; mild sob/cough persists o: Vital Signs Period Temp Pulse Resp BP Sys/Rios Pulse Ox Last 24 Hr 97.7 F-98.6 F 70-90 16-20 135-164/55-78 97-97 nad no jvd rrr s1s2 no mrg diminshed air mov't, trace wheezes. bibasilar dullness. nl effort aaox3 no le e/c/c abd nt nd pos bs no jaundice diaphoresis Current Medications Generic Name Dose Route Start Last Admin Trade Name Freq PRN Reason Stop Dose Admin Acetaminophen 650 mg 07/05/17 15:58 07/14/17 14:44 Tylenol - PO 650 mg Q4H PRN Administration FEVER OR PAIN Arformoterol Tartrate 1 amp 07/10/17 13:00 07/14/17 22:05 Brovana (Restricted To Pulmonology/Resp) - NEB 1 amp BID [facility] Administration Atorvastatin Calcium 40 mg 07/05/17 22:00 07/14/17 22:09 Lipitor - PO 40 mg HS [facility] Administration Cyanocobalamin 1,000 mcg 07/06/17 10:00 07/14/17 10:01 Vitamin B12 - PO 1,000 mcg DAILY [facility] Administration Escitalopram Oxalate 20 mg 07/06/17 10:00 07/14/17 10:01 Lexapro - PO 20 mg DAILY [facility] Administration Furosemide 20 mg 07/13/17 11:00 07/14/17 10:01 Lasix - PO 20 mg DAILY [facility] Administration Guaifenesin 10 ml 07/08/17 09:15 07/11/17 10:38 Robitussin - PO 10 ml Q4H PRN Administration COUGH Heparin Sodium (Porcine) 5,000 unit 07/05/17 18:00 07/15/17 01:29 Heparin - SQ 5,000 unit Q8H-IV [facility] Administration Hydralazine HCl 50 mg 07/12/17 22:00 07/14/17 22:09 Apresoline - PO 50 mg BID [facility] Administration Levothyroxine Sodium 100 mcg 07/06/17 07:00 07/15/17 06:53 Synthroid - PO 100 mcg DAILY@0700 [facility] Administration Melatonin 10 mg 07/05/17 22:00 07/14/17 22:09 Melatonin PO 10 mg HS [facility] Administration Methylprednisolone Sodium Succinate 40 mg 07/15/17 10:00 Solu-Medrol - IVPB DAILY [facility] Non-Formulary Medication 9.9 ml 07/06/17 10:00 Fluticasone Furoate [Flonase Sensimist] NS DAILY [facility] Ondansetron HCl 4 mg 07/07/17 01:50 Zofran - PO Q6H PRN Pantoprazole Sodium 40 mg 07/05/17 22:00 07/14/17 22:09 Protonix - PO 40 mg BID [facility] Administration Polyethylene Glycol 17 gm 07/05/17 22:00 07/14/17 22:10 Miralax (For Daily Use) - PO Not Given BID [facility] Tiotropium [place] 1 puff 07/07/17 13:00 07/14/17 10:02 Spiriva - IH 1 puff DAILY [facility] Administration Valsartan 320 mg 07/11/17 10:00 07/14/17 10:01 Diovan - PO 320 mg DAILY [facility] Administration CBC, BMP 07/15/17 06:25 07/14/17 05:35 ekg: possible ectopic atrial rhythm with short pr interval and pac's. borderline prolonged qt. no acute ischemic changes. echo 03/2017: nl lv/rv, mild ar/mr mibi 03/2017: nl mpi, nl lvef A/P 81 f hx htn, hld, hypothyroid, cad s/p pci 2007 (lad), MR s/p repair, le edema/ venous insuff, chronic URIs from chronic laryngeal reflux and recent admit for pna last week p/w worsening sob thought to have persistent pna with superimposed uti. sob, pna, copd: - initially did not appear to be 2/2 chf, IVF given when pt hypotensive. BP now improved. - on abx for pna, uti - mgm't of possible contribution from copd per pmd. - cont po lasix h/o acute diastolic chf likely secondary to hypertensive emergency (04/19): -recent echo and mibi unremarkable -cont po lasix chronic LE edema/venous insuff: -stable currently htn: -Initially bp's held for hypotension, now being added back on. - of note, bystolic stopped on prior admit due to 2/2 bradycardia, also with h/ o worsened edema with ccb - 10/9: bp still suboptimal on valsartan and low dose hydralazine. Will increase hydralazine to 50 bid. - 07/13-12: bp improved, con't current regimen, con't to monitor for need to uptitrate (still not on prior home regimen) cad s/p remote pci: -no recent angina or ischemia (03/20). Echo 03/2017 without significant abnormality. -trop currently normal, no ekg changes -cont home regimen statin, arb - will hold ASA in light of worsening anemia. On IV iron transfusions per heme. anemia: -no cardiac contraindications to planned egd/foc
[2017-07-15] MEDS: ARFORMOTEROL TARTRATE 15 MCG/2 ML VIAL NEB SCH ×2 (10:28→22:29)
[2017-07-15] MEDS ORDERED: PT OWN MED DRAWER 7, Y5N ONE (10:55)
[2017-07-15] MEDS: CYANOCOBALAMIN 1,000 MCG TABLET (FP) PO SCH (10:59)
[2017-07-15] MEDS: PANTOPRAZOLE 40 MG TABLET (FP) PO SCH ×2 (10:59→21:53)
[2017-07-15] MEDS: FUROSEMIDE 20 MG TABLET (FP) PO SCH (10:59)
[2017-07-15] MEDS: hydrALAZINE HCL 50 MG TABLET (FP) PO SCH ×2 (10:59→21:53)
[2017-07-15] MEDS: ESCITALOPRAM OXALATE 20 MG TABLET (FP) PO SCH (10:59)
[2017-07-15] MEDS: VALSARTAN 160 MG TABLET (UD) PO SCH (11:00)
[2017-07-15 11:01] LABS: MYELOCYTE 1 % (0-2); TOTAL CELLS COUNTED 100
[2017-07-15] MEDS: methylPREDNISolone NA SUCC 40 MG/1 ML VIAL IVPB SCH (11:01)
[2017-07-15] MEDS: TIOTROPIUM BROMIDE 18 MCG/INH (DEVICE W/ 5 CAPSULES) IH SCH (11:01)
[2017-07-15] MEDS: POLYETHYLENE GLYCOL 3350 119 GM BTL PO SCH ×2 (11:45→21:56)
--- NOTE | 2017-07-15 13:22 | PN ---
Progress Note (short form) - Note Progress Note: PAtient seen and examined Denies any complaints Last Vital Signs Temp Pulse Resp BP Pulse Ox 97.5 F L 74 18 142/57 96 07/15/17 10:00 07/15/17 10:35 07/15/17 10:00 07/15/17 10:00 07/15/17 10:35 Cor: RSR, No murmurs, No gallops Lungs: Clear to P&A Abd: Soft, Normal bowel sounds, No organomegaly Ext:No significant edema Skin: No rashes, Integument intact Abnormal Lab Results 07/12/17 07/14/17 07/15/17 06:45 05:35 06:25 RBC 3.39 L Hgb 7.8 L Hct 24.9 L MCV 73.4 L MCH 23.0 L MCHC 31.3 L RDW 19.8 H Neutrophils % (Manual) 89 H Lymphocytes % (Manual) 7 L D Monocytes % (Manual) 3 L Hemoglobin A 98.2 H Iron 232 H TIBC < 249 L Iron Saturation > 93 H Free T3 1.1 L Home Medication List Medication Instructions Recorded Confirmed Type Aspirin [ASA -] 81 mg PO DAILY 04/19/17 07/05/17 History Atorvastatin Ca [Lipitor] 40 mg PO HS 04/19/17 07/05/17 History Cyanocobalamin (Vitamin B-12) 1,000 mcg PO DAILY 04/19/17 07/05/17 History [Vitamin B-12] Escitalopram Oxalate [Lexapro -] 20 mg PO DAILY 04/19/17 07/05/17 History Fluticasone Furoate [Flonase 9.9 ml NS DAILY 04/19/17 07/05/17 History Sensimist] Levothyroxine [Synthroid -] 100 mcg PO DAILY 04/19/17 07/05/17 History Mag Carb/Al Hydrox/Alginic AC 15 - 30 ml PO Q6H 04/19/17 07/05/17 History [Gaviscon Liquid] Mometasone/Formoterol [Dulera 100 2 inh IH BID 04/19/17 07/05/17 History Mcg/5 Mcg Inhaler] Potassium Chloride [Klor-Con 8] 8 meq PO DAILY 04/19/17 07/05/17 History Fluticasone/Vilanterol [Breo 1 each IH DAILY 06/19/17 07/05/17 History Ellipta 100-25 Mcg INH] Hydralazine HCl [Apresoline -] 75 mg PO TID 06/19/17 07/05/17 History Omeprazole 40 mg PO BID 06/19/17 07/05/17 History Prednisone [Deltasone -] 10 mg PO DAILY 06/19/17 07/05/17 History Umeclidinium [place] [Incruse 62.5 mcg IH DAILY 06/19/17 07/05/17 History Ellipta] Active Medications Generic Name Dose Route Start Last Admin Trade Name Freq PRN Reason Stop Dose Admin Acetaminophen 650 mg 07/05/17 15:58 07/14/17 14:44 Tylenol - PO 650 mg Q4H PRN Administration FEVER OR PAIN Arformoterol Tartrate 1 amp 07/10/17 13:00 07/15/17 10:28 Brovana (Restricted To Pulmonology/Resp) - NEB 1 amp BID [facility] Administration Atorvastatin Calcium 40 mg 07/05/17 22:00 07/14/17 22:09 Lipitor - PO 40 mg HS [facility] Administration Cyanocobalamin 1,000 mcg 07/06/17 10:00 07/15/17 10:59 Vitamin B12 - PO 1,000 mcg DAILY [facility] Administration Escitalopram Oxalate 20 mg 07/06/17 10:00 07/15/17 10:59 Lexapro - PO 20 mg DAILY [facility] Administration Furosemide 20 mg 07/13/17 11:00 07/15/17 10:59 Lasix - PO 20 mg DAILY [facility] Administration Guaifenesin 10 ml 07/08/17 09:15 07/11/17 10:38 Robitussin - PO 10 ml Q4H PRN Administration COUGH Heparin Sodium (Porcine) 5,000 unit 07/05/17 18:00 07/15/17 11:01 Heparin - SQ 5,000 unit Q8H-IV [facility] Administration Hydralazine HCl 50 mg 07/12/17 22:00 07/15/17 10:59 Apresoline - PO 50 mg BID [facility] Administration Levothyroxine Sodium 100 mcg 07/06/17 07:00 07/15/17 06:53 Synthroid - PO 100 mcg DAILY@0700 [facility] Administration Melatonin 10 mg 07/05/17 22:00 07/14/17 22:09 Melatonin PO 10 mg HS [facility] Administration Methylprednisolone Sodium Succinate 40 mg 07/15/17 10:00 07/15/17 11:01 Solu-Medrol - IVPB 40 mg DAILY [facility] Administration Non-Formulary Medication 9.9 ml 07/06/17 10:00 Fluticasone Furoate [Flonase Sensimist] NS DAILY [facility] Ondansetron HCl 4 mg 07/07/17 01:50 Zofran - PO Q6H PRN Pantoprazole Sodium 40 mg 07/05/17 22:00 07/15/17 10:59 Protonix - PO 40 mg BID [facility] Administration Polyethylene Glycol 17 gm 07/05/17 22:00 07/15/17 11:45 Miralax (For Daily Use) - PO 17 grams BID [facility] Administration Tiotropium [place] 1 puff 07/07/17 13:00 07/15/17 11:01 Spiriva - IH 1 puff DAILY [facility] Administration Valsartan 320 mg 07/11/17 10:00 07/15/17 11:00 Diovan - PO 320 mg DAILY [facility] Administration A/P 81 y/o patient with Fe deficiency anemia Possible liver hemangioma PNA/UTI COPD/CHF CAD s/p 3 doses IV iron For GI work up
--- NOTE | 2017-07-15 17:05 | PN ---
Teaching Attending Note Name of Resident: Jeff Anglin ATTENDING PHYSICIAN STATEMENT I saw and evaluated the patient. I reviewed the resident's note and discussed the case with the resident. I agree with the resident's findings and plan as documented. SUBJECTIVE: OBJECTIVE: ASSESSMENT AND PLAN: ESBL UTI D/C ertapenem, observe off
[2017-07-15] MEDS: ATORVASTATIN CA 40 MG TABLET (FP) PO SCH (21:53)
[2017-07-15] MEDS: MELATONIN 5 MG TABLETS PO SCH (21:53)
[2017-07-16] MEDS: HEPARIN NA (PORCINE) 5,000 UNITS/ML 1ML VIAL SQ SCH ×3 (02:36→18:12)
[2017-07-16] MEDS: LEVOTHYROXINE NA 100 MCG TABLET (FP) PO SCH (06:04)
--- NOTE | 2017-07-16 10:01 | PN ---
Progress Note (short form) - Note Progress Note: Patient will be going for EGD today. Had as better evening with decreased cough. Still anemic in spite of 3 IV Iron treatments. Walked in hallways yesterday twice. If EGD nondiagnostic then for Colonoscopy Wednesday. Holding CT Liver + contrast until renal lab improves. On Exam: Vital Signs Temp 97.6 F 07/16/17 06:19 Pulse 70 07/16/17 06:19 Resp 18 07/16/17 06:19 BP 159/62 07/16/17 06:19 Pulse Ox 96 07/15/17 21:00 Intake & Output 07/15/17 07/15/17 07/16/17 11:59 23:59 11:59 Intake Total 200 450 Balance 200 450 Weight 161 lb 161 lb 14.4 oz Intake: IVPB 50 Oral 200 400 Other: Voiding Method Toilet Toilet # Unmeasured Voids Void 1 1 Bowel Movement No Yes # Bowel Movements 1 Weight Measurement Method Built in Bedscale Built in Bedscale In bed Alert Chest: Few rales at both bases Cor: Reg Abd: slightly distended but nontender Ext: No pedal edema Abnormal Lab Results 07/15/17 06:25 RBC 3.39 L Hgb 7.8 L Hct 24.9 L MCV 73.4 L MCH 23.0 L MCHC 31.3 L RDW 19.8 H Neutrophils % (Manual) 89 H Lymphocytes % (Manual) 7 L D Monocytes % (Manual) 3 L IMP: Iron Deficiency Anemia Probably GI source COPD with exacerbation resolving Pneumonia resolving Liver Mass ASHD Anxiety about her illness Plan: EGD today F/U lab PT for ambulation F/U renal lab Problem List - Problems (1) COPD (chronic obstructive pulmonary disease) Code(s): J44.9 - CHRONIC OBSTRUCTIVE PULMONARY DISEASE, UNSPECIFIED Qualifiers : COPD type: COPD with acute exacerbation Qualified Code(s): J44.1 - Chronic obstructive pulmonary disease with (acute) exacerbation; J44.1 - Chronic obstructive pulmonary disease with (acute) exacerbation; J44.1 - Chronic obstructive pulmonary disease with (acute) exacerbation; J44.1 - Chronic obstructive pulmonary disease with (acute) exacerbation (2) Anxiety about health Code(s): F41.8 - OTHER SPECIFIED ANXIETY DISORDERS (3) Congestive cardiac failure Code(s): I50.9 - HEART FAILURE, UNSPECIFIED Qualifiers: Congestive heart failure type: diastolic Congestive heart failure chronicity: chronic Qualified Code(s): I50.32 - Chronic diastolic ( congestive) heart failure; I50.32 - Chronic diastolic (congestive) heart failure ; I50.32 - Chronic diastolic (congestive) heart failure; I50.32 - Chronic diastolic (congestive) heart failure (4) Pneumonia Code(s): J18.9 - PNEUMONIA, UNSPECIFIED ORGANISM Qualifiers: Pneumonia type: due to unspecified organism Laterality: unspecified laterality Lung location: unspecified part of lung Qualified Code(s) : J18.9 - Pneumonia, unspecified organism; J18.9 - Pneumonia, unspecified organism (5) UTI (urinary tract infection) Code(s): N39.0 - URINARY TRACT INFECTION, SITE NOT SPECIFIED (6) Iron (Fe) deficiency anemia Code(s): D50.9 - IRON DEFICIENCY ANEMIA, UNSPECIFIED
[2017-07-16] MEDS: ARFORMOTEROL TARTRATE 15 MCG/2 ML VIAL NEB SCH ×2 (10:15→21:35)
--- NOTE | 2017-07-16 10:29 | PN ---
Progress Note (short form) - Note Progress Note: PULMONARY VSS/AFEBRILE ANICTERIC DISTANT WITH BIBASILAR CRACKLES S1S2 BS+ NO EDEMA LABS/MEDS/NOTES/IMAGES REVIEWED WILL HAVE EGD THIS AM PROCEED PLANNED Abundio HAGAN MD
--- NOTE | 2017-07-16 10:51 | PN ---
Progress Note (short form) - Note Progress Note: s: no cp palps dizzy; mild sob/cough persists but better today o: Vital Signs Period Temp Pulse Resp BP Sys/Rios Pulse Ox Last 24 Hr 97.6 F-98.6 F 70-84 16-20 115-159/48-72 96-97 nad no jvd rrr s1s2 no mrg diminshed air mov't, trace wheezes. bibasilar dullness. nl effort aaox3 no le e/c/c abd nt nd pos bs no jaundice diaphoresis Current Medications Generic Name Dose Route Start Last Admin Trade Name Freq PRN Reason Stop Dose Admin Acetaminophen 650 mg 07/05/17 15:58 07/14/17 14:44 Tylenol - PO 650 mg Q4H PRN Administration FEVER OR PAIN Arformoterol Tartrate 1 amp 07/10/17 13:00 07/16/17 10:15 Brovana (Restricted To Pulmonology/Resp) - NEB 1 amp BID [facility] Administration Atorvastatin Calcium 40 mg 07/05/17 22:00 07/15/17 21:53 Lipitor - PO 40 mg HS [facility] Administration Cyanocobalamin 1,000 mcg 07/06/17 10:00 07/15/17 10:59 Vitamin B12 - PO 1,000 mcg DAILY [facility] Administration Escitalopram Oxalate 20 mg 07/06/17 10:00 07/15/17 10:59 Lexapro - PO 20 mg DAILY [facility] Administration Furosemide 20 mg 07/13/17 11:00 07/15/17 10:59 Lasix - PO 20 mg DAILY [facility] Administration Guaifenesin 10 ml 07/08/17 09:15 07/11/17 10:38 Robitussin - PO 10 ml Q4H PRN Administration COUGH Heparin Sodium (Porcine) 5,000 unit 07/05/17 18:00 07/16/17 02:36 Heparin - SQ 5,000 unit Q8H-IV [facility] Administration Hydralazine HCl 50 mg 07/12/17 22:00 07/15/17 21:53 Apresoline - PO 50 mg BID [facility] Administration Levothyroxine Sodium 100 mcg 07/06/17 07:00 07/16/17 06:04 Synthroid - PO Not Given DAILY@0700 [facility] Melatonin 10 mg 07/05/17 22:00 07/15/17 21:53 Melatonin PO 10 mg HS [facility] Administration Methylprednisolone Sodium Succinate 40 mg 07/15/17 10:00 07/15/17 11:01 Solu-Medrol - IVPB 40 mg DAILY [facility] Administration Non-Formulary Medication 9.9 ml 07/06/17 10:00 Fluticasone Furoate [Flonase Sensimist] NS DAILY [facility] Ondansetron HCl 4 mg 07/07/17 01:50 Zofran - PO Q6H PRN Pantoprazole Sodium 40 mg 07/05/17 22:00 07/15/17 21:53 Protonix - PO 40 mg BID [facility] Administration Polyethylene Glycol 17 gm 07/05/17 22:00 07/15/17 21:56 Miralax (For Daily Use) - PO 17 grams BID [facility] Administration Tiotropium [place] 1 puff 07/07/17 13:00 07/15/17 11:01 Spiriva - IH 1 puff DAILY [facility] Administration Valsartan 320 mg 07/11/17 10:00 07/15/17 11:00 Diovan - PO 320 mg DAILY [facility] Administration CBC, BMP 07/15/17 06:25 07/14/17 05:35 ekg: possible ectopic atrial rhythm with short pr interval and pac's. borderline prolonged qt. no acute ischemic changes. echo 03/2017: nl lv/rv, mild ar/mr mibi 03/2017: nl mpi, nl lvef A/P 83 f hx htn, hld, hypothyroid, cad s/p pci 2007 (lad), MR s/p repair, le edema/ venous insuff, chronic URIs from chronic laryngeal reflux and recent admit for pna last week p/w worsening sob thought to have persistent pna with superimposed uti. sob, pna, copd: - initially did not appear to be 2/2 chf, IVF given when pt hypotensive. BP now improved. - on abx for pna, uti - mgm't of possible contribution from copd per pmd. - cont po lasix h/o acute diastolic chf likely secondary to hypertensive emergency (04/19): -recent echo and mibi unremarkable -cont po lasix chronic LE edema/venous insuff: -stable currently htn: -Initially bp's held for hypotension, now being added back on. - of note, bystolic stopped on prior admit due to 2/2 bradycardia, also with h/ o worsened edema with ccb - 07/12: bp still suboptimal on valsartan and low dose hydralazine. Will increase hydralazine to 50 bid. - 07/13-: bp improved, con't current regimen, con't to monitor for need to uptitrate (still not on prior home regimen) cad s/p remote pci: -no recent angina or ischemia (03/20). Echo 03/2017 without significant abnormality. -trop currently normal, no ekg changes -cont home regimen statin, arb - will hold ASA in light of worsening anemia. On IV iron transfusions per heme. anemia: -no cardiac contraindications to planned egd/foc
[2017-07-16] MEDS ORDERED: ETOMIDATE 20 MG/10 ML AMPUL IVPUSH ONE (11:31)
[2017-07-16] MEDS ORDERED: LIDOCAINE HCL/PF 2% SDV 5ML VIAL ONE (11:31)
--- NOTE | 2017-07-16 12:30 | PN ---
Progress Note (short form) - Note Progress Note: GI Procedure NOte: Please see scanned EGD report. although laryngeal reflux across a sliding hiatal hernia and antral gastritis were noted , no definitive source of anemia found. Should ideally have colonoscopy if cleared by cardiology and pulmonary teams.
[2017-07-16] MEDS ORDERED: PT OWN MED DRAWER 7, Y5N ONE ×2 (14:18→20:44)
[2017-07-16] MEDS: TIOTROPIUM BROMIDE 18 MCG/INH (DEVICE W/ 5 CAPSULES) IH SCH (14:27)
[2017-07-16] MEDS: methylPREDNISolone NA SUCC 40 MG/1 ML VIAL IVPB SCH (14:28)
[2017-07-16] MEDS: ESCITALOPRAM OXALATE 20 MG TABLET (FP) PO SCH (14:29)
[2017-07-16] MEDS: hydrALAZINE HCL 50 MG TABLET (FP) PO SCH ×2 (14:29→21:08)
[2017-07-16] MEDS: PANTOPRAZOLE 40 MG TABLET (FP) PO SCH ×2 (14:29→21:08)
[2017-07-16] MEDS: VALSARTAN 160 MG TABLET (UD) PO SCH (14:29)
[2017-07-16] MEDS: CYANOCOBALAMIN 1,000 MCG TABLET (FP) PO SCH (14:30)
[2017-07-16] MEDS: FUROSEMIDE 20 MG TABLET (FP) PO SCH (14:30)
[2017-07-16] MEDS: POLYETHYLENE GLYCOL 3350 119 GM BTL PO SCH ×2 (14:31→21:09)
[2017-07-16] MEDS: ATORVASTATIN CA 40 MG TABLET (FP) PO SCH (21:08)
[2017-07-16] MEDS: MELATONIN 5 MG TABLETS PO SCH (21:08)
[2017-07-17] MEDS: HEPARIN NA (PORCINE) 5,000 UNITS/ML 1ML VIAL SQ SCH ×3 (02:40→18:45)
[2017-07-17] MEDS: LEVOTHYROXINE NA 100 MCG TABLET (FP) PO SCH (06:04)
[2017-07-17 06:36] LABS: SERUM IRON 66 ug/dL (27-139); TOTAL IRON BINDING CAPACITY 232 ug/dL (250-450); UIBC 166 ug/dL (118-369)
[2017-07-17 07:55] LABS: MCH 23.7 pg (25.7-33.7); MCHC 31.7 g/dl (32.0-36.0); MEAN CELL VOLUME 74.7 fl (80-96); MEAN PLT VOLUME 8.4 fl (7.5-11.1); PLATELET COUNT 356 K/MM3 (134-434); RDW 19.9 % (11.6-15.6); WHITE BLOOD COUNT 10.7 K/mm3 (4.0-10.0)
[2017-07-17 08:35] LABS: ANION GAP 10 (8-16); CO2 27 mmol/L (21-32); CREATININE 0.9 mg/dL (0.55-1.02); GLUCOSE,RANDOM 72 mg/dL (74-106)
--- NOTE | 2017-07-17 09:40 | PN ---
Progress Note (short form) - Note Progress Note: s: no cp palps dizzy; mild sob/cough persists but continues to improve o: Vital Signs Period Temp Pulse Resp BP Sys/Rios Pulse Ox Last 24 Hr 96.3 F-98.3 F 22-81 14-20 140-162/57-81 95-100 nad no jvd rrr s1s2 no mrg trace wheezes. nl effort aaox3 no le e/c/c abd nt nd pos bs no jaundice diaphoresis Current Medications Generic Name Dose Route Start Last Admin Trade Name Freq PRN Reason Stop Dose Admin Acetaminophen 650 mg 07/05/17 15:58 07/14/17 14:44 Tylenol - PO 650 mg Q4H PRN Administration FEVER OR PAIN Arformoterol Tartrate 1 amp 07/10/17 13:00 07/16/17 21:35 Brovana (Restricted To Pulmonology/Resp) - NEB 1 amp BID [facility] Administration Atorvastatin Calcium 40 mg 07/05/17 22:00 07/16/17 21:08 Lipitor - PO 40 mg HS [facility] Administration Cyanocobalamin 1,000 mcg 07/06/17 10:00 07/16/17 14:30 Vitamin B12 - PO 1,000 mcg DAILY [facility] Administration Escitalopram Oxalate 20 mg 07/06/17 10:00 07/16/17 14:29 Lexapro - PO 20 mg DAILY [facility] Administration Furosemide 20 mg 07/13/17 11:00 07/16/17 14:30 Lasix - PO 20 mg DAILY [facility] Administration Guaifenesin 10 ml 07/08/17 09:15 07/11/17 10:38 Robitussin - PO 10 ml Q4H PRN Administration COUGH Heparin Sodium (Porcine) 5,000 unit 07/05/17 18:00 07/17/17 02:40 Heparin - SQ 5,000 unit Q8H-IV [facility] Administration Hydralazine HCl 50 mg 07/12/17 22:00 07/16/17 21:08 Apresoline - PO 50 mg BID [facility] Administration Levothyroxine Sodium 100 mcg 07/06/17 07:00 07/17/17 06:04 Synthroid - PO 100 mcg DAILY@0700 [facility] Administration Melatonin 10 mg 07/05/17 22:00 07/16/17 21:08 Melatonin PO 10 mg HS [facility] Administration Methylprednisolone Sodium Succinate 40 mg 07/15/17 10:00 07/16/17 14:28 Solu-Medrol - IVPB 40 mg DAILY [facility] Administration Non-Formulary Medication 9.9 ml 07/06/17 10:00 Fluticasone Furoate [Flonase Sensimist] NS DAILY [facility] Ondansetron HCl 4 mg 07/07/17 01:50 Zofran - PO Q6H PRN Pantoprazole Sodium 40 mg 07/05/17 22:00 07/16/17 21:08 Protonix - PO 40 mg BID [facility] Administration Polyethylene Glycol 17 gm 07/05/17 22:00 07/16/17 21:09 Miralax (For Daily Use) - PO Not Given BID [facility] Tiotropium [place] 1 puff 07/07/17 13:00 07/16/17 14:27 Spiriva - IH 1 puff DAILY [facility] Administration Valsartan 320 mg 07/11/17 10:00 07/16/17 14:29 Diovan - PO 320 mg DAILY [facility] Administration CBC, BMP 07/17/17 07:00 07/17/17 07:00 ekg: possible ectopic atrial rhythm with short pr interval and pac's. borderline prolonged qt. no acute ischemic changes. echo 03/2017: nl lv/rv, mild ar/mr mibi 03/2017: nl mpi, nl lvef A/P 81 f hx htn, hld, hypothyroid, cad s/p pci 2007 (lad), MR s/p repair, le edema/ venous insuff, chronic URIs from chronic laryngeal reflux and recent admit for pna last week p/w worsening sob thought to have persistent pna with superimposed uti. sob, pna, copd: - initially did not appear to be 2/2 chf, IVF given when pt hypotensive. BP now improved. - on abx for pna, uti - mgm't of possible contribution from copd per pmd. - cont po lasix h/o acute diastolic chf likely secondary to hypertensive emergency (04/19): -recent echo and mibi unremarkable -cont po lasix chronic LE edema/venous insuff: -stable currently htn: -Initially bp's held for hypotension, now being added back on. - of note, bystolic stopped on prior admit due to 2/2 bradycardia, also with h/ o worsened edema with ccb - 07/12: bp still suboptimal on valsartan and low dose hydralazine. Will increase hydralazine to 50 bid. - 07/13-: bp improved, con't current regimen, con't to monitor for need to uptitrate (still not on prior home regimen) cad s/p remote pci: -no recent angina or ischemia (03/20). Echo 03/2017 without significant abnormality. -trop currently normal, no ekg changes -cont home regimen statin, arb - will hold ASA in light of worsening anemia. On IV iron transfusions per heme. anemia: -egd done, no source of anemia seen, planned for colonoscopy next -no cardiac contraindications to planned colonoscopy
[2017-07-17] MEDS ORDERED: PT OWN MED DRAWER 7, Y5N ONE ×2 (09:46→16:17)
[2017-07-17] MEDS: hydrALAZINE HCL 50 MG TABLET (FP) PO SCH ×2 (09:49→21:53)
[2017-07-17] MEDS: VALSARTAN 160 MG TABLET (UD) PO SCH (09:49)
[2017-07-17] MEDS: FUROSEMIDE 20 MG TABLET (FP) PO SCH (09:50)
[2017-07-17] MEDS: POLYETHYLENE GLYCOL 3350 119 GM BTL PO SCH ×2 (09:51→21:53)
[2017-07-17] MEDS: ESCITALOPRAM OXALATE 20 MG TABLET (FP) PO SCH (09:51)
[2017-07-17] MEDS: PANTOPRAZOLE 40 MG TABLET (FP) PO SCH ×2 (09:51→21:53)
[2017-07-17] MEDS: CYANOCOBALAMIN 1,000 MCG TABLET (FP) PO SCH (09:51)
[2017-07-17] MEDS: methylPREDNISolone NA SUCC 40 MG/1 ML VIAL IVPB SCH (09:52)
--- NOTE | 2017-07-17 10:11 | PN ---
Progress Note (short form) - Note Progress Note: Overall breathing feels better. Some residual cough. S/P EGD yesterday. No acute events overnight. Some residual cough. Intake & Output 07/14/17 07/15/17 07/16/17 07/17/17 23:59 23:59 23:59 23:59 Intake Total 1150 650 100 Balance 1150 650 100 Weight 161 lb 8 oz 161 lb 161 lb 14.4 oz 156 lb 4 oz Last Vital Signs Temp Pulse Resp BP Pulse Ox 97.5 F L 75 20 155/65 99 07/17/17 07:01 07/17/17 07:01 07/17/17 07:01 07/17/17 07:01 07/16/17 21:00 Active Medications Acetaminophen (Tylenol -) 650 mg PO Q4H PRN PRN Reason: FEVER OR PAIN Last Admin: 07/14/17 14:44 Dose: 650 mg Arformoterol Tartrate (Brovana (Restricted To Pulmonology/Resp) -) 1 amp NEB BID [facility] Last Admin: 07/16/17 21:35 Dose: 1 amp Atorvastatin Calcium (Lipitor -) 40 mg PO HS [facility] Last Admin: 07/16/17 21:08 Dose: 40 mg Cyanocobalamin (Vitamin B12 -) 1,000 mcg PO DAILY [facility] Last Admin: 07/17/17 09:51 Dose: 1,000 mcg Escitalopram Oxalate (Lexapro -) 20 mg PO DAILY [facility] Last Admin: 07/17/17 09:51 Dose: 20 mg Furosemide (Lasix -) 20 mg PO DAILY [facility] Last Admin: 07/17/17 09:50 Dose: 20 mg Guaifenesin (Robitussin -) 10 ml PO Q4H PRN PRN Reason: COUGH Last Admin: 07/11/17 10:38 Dose: 10 ml Heparin Sodium (Porcine) (Heparin -) 5,000 unit SQ Q8H-IV [facility] Last Admin: 07/17/17 09:50 Dose: 5,000 unit Hydralazine HCl (Apresoline -) 50 mg PO BID [facility] Last Admin: 07/17/17 09:49 Dose: 50 mg Levothyroxine Sodium (Synthroid -) 100 mcg PO DAILY@0700 [facility] Last Admin: 07/17/17 06:04 Dose: 100 mcg Melatonin (Melatonin) 10 mg PO HS [facility] Last Admin: 07/16/17 21:08 Dose: 10 mg Methylprednisolone Sodium Succinate (Solu-Medrol -) 40 mg IVPB DAILY [facility] Last Admin: 07/17/17 09:52 Dose: 40 mg Non-Formulary Medication (Fluticasone Furoate [Flonase Sensimist]) 9.9 ml NS DAILY [facility] Ondansetron HCl (Zofran -) 4 mg PO Q6H PRN Pantoprazole Sodium (Protonix -) 40 mg PO BID [facility] Last Admin: 07/17/17 09:51 Dose: 40 mg Polyethylene Glycol (Miralax (For Daily Use) -) 17 gm PO BID [facility] Last Admin: 07/17/17 09:51 Dose: Not Given Tiotropium [place] (Spiriva -) 1 puff IH DAILY [facility] Last Admin: 07/16/17 14:27 Dose: 1 puff Valsartan (Diovan -) 320 mg PO DAILY [facility] Last Admin: 07/17/17 09:49 Dose: 320 mg Constitutional: Yes: NAD Eyes: Yes: WNL HENT: Yes: WNL Neck: Yes: WNL Cardiovascular: Yes: Regular Rate and Rhythm, S1, S2 Respiratory: Yes: Bibasilar crackles/Rhonchi Gastrointestinal: Yes: Normal Bowel Sounds, Soft Extremities: Yes: WNL Edema: No Lab: Laboratory Results - last 24 hr 07/16/17 07/16/17 07/17/17 06:30 21:45 07:00 WBC 10.7 H RBC 3.52 L Hgb 8.4 L Hct 26.3 L MCV 74.7 L MCH 23.7 L MCHC 31.7 L RDW 19.9 H Plt Count 356 MPV 8.4 Neutrophils % No Result Required. Lymphocytes % No Result Required. Sodium Potassium Chloride Carbon Dioxide Anion Gap BUN Creatinine Random Glucose Calcium Iron 66 TIBC 232 L Iron Saturation 28 Stool Occult Blood Negative 07/17/17 07:00 WBC RBC Hgb Hct MCV MCH MCHC RDW Plt Count MPV Neutrophils % Lymphocytes % Sodium 142 Potassium 4.0 Chloride 105 Carbon Dioxide 27 Anion Gap 10 BUN 43 H Creatinine 0.9 Random Glucose 72 L D Calcium 9.0 Iron TIBC Iron Saturation Stool Occult Blood Problem List - Problems (1) COPD (chronic obstructive pulmonary disease) Code(s): J44.9 - CHRONIC OBSTRUCTIVE PULMONARY DISEASE, UNSPECIFIED Qualifiers : COPD type: COPD with acute exacerbation Qualified Code(s): J44.1 - Chronic obstructive pulmonary disease with (acute) exacerbation; J44.1 - Chronic obstructive pulmonary disease with (acute) exacerbation; J44.1 - Chronic obstructive pulmonary disease with (acute) exacerbation; J44.1 - Chronic obstructive pulmonary disease with (acute) exacerbation (2) HCAP (healthcare-associated pneumonia) Code(s): J18.9 - PNEUMONIA, UNSPECIFIED ORGANISM (3) Hypoxia Code(s): R09.02 - HYPOXEMIA (4) Pneumonia Code(s): J18.9 - PNEUMONIA, UNSPECIFIED ORGANISM Qualifiers: Pneumonia type: due to unspecified organism Laterality: unspecified laterality Lung location: unspecified part of lung Qualified Code(s) : J18.9 - Pneumonia, unspecified organism; J18.9 - Pneumonia, unspecified organism (5) Shortness of breath Code(s): R06.02 - SHORTNESS OF BREATH (6) Coronary artery disease Code(s): I25.10 - ATHSCL HEART DISEASE OF [place] CORONARY ARTERY W/O ANG PCTRS Qualifiers: Coronary Disease-Associated Artery/Lesion type: [place] artery [place] vs. transplanted heart: [place] heart Associated angina: without angina Qualified Code(s): I25.10 - Atherosclerotic heart disease of [place] coronary artery without angina pectoris; I25.10 - Atherosclerotic heart disease of [place] coronary artery without angina pectoris; I25.10 - Atherosclerotic heart disease of [place] coronary artery without angina pectoris (7) Dyspnea Code(s): R06.00 - DYSPNEA, UNSPECIFIED Qualifiers: Dyspnea type: dyspnea on exertion Qualified Code(s): R06.09 - Other forms of dyspnea; R06.09 - Other forms of dyspnea (8) Acute hypoxemic respiratory failure Code(s): J96.01 - ACUTE RESPIRATORY FAILURE WITH HYPOXIA (9) Hypothyroid Code(s): E03.9 - HYPOTHYROIDISM, UNSPECIFIED Qualifiers: Hypothyroidism type: acquired Qualified Code(s): E03.9 - Hypothyroidism, unspecified; E03.9 - Hypothyroidism, unspecified; E03.9 - Hypothyroidism, unspecified (10) Acute kidney injury Code(s): N17.9 - ACUTE KIDNEY FAILURE, UNSPECIFIED (11) Acute on chronic diastolic (congestive) heart failure Code(s): I50.33 - ACUTE ON CHRONIC DIASTOLIC (CONGESTIVE) HEART FAILURE (12) H/O heart artery stent Code(s): Z95.5 - PRESENCE OF CORONARY ANGIOPLASTY IMPLANT AND GRAFT (13) Hypertension Code(s): I10 - ESSENTIAL (PRIMARY) HYPERTENSION Qualifiers: Hypertension type: essential hypertension Qualified Code(s): I10 - Essential (primary) hypertension; I10 - Essential (primary) hypertension; I10 - Essential (primary) hypertension Assessment/Plan IMP ACUTE HYPOXEMIC RESPIRATORY FAILURE IMPROVING PNEUMONIA HAP COPD UTI WITH BACTEREMIA DIASTOLIC HF ASHD S/P STENT GERD ACUTE KIDNEY INJURY PLAN IV ANTIBIOTICS PER ID INHALED BRONCHODILATORS O2 MEDROL TAPER to OD MONITOR LYES,RENAL FUNCTION SHE IS AT AN INCREASED BUT REASONABLE RISK : THERE IS NO PULMONARY CONTRAINDICATION FOR COLONOSCOPY DR SHOEMAKER
[2017-07-17] MEDS: ARFORMOTEROL TARTRATE 15 MCG/2 ML VIAL NEB SCH ×2 (10:12→21:57)
--- NOTE | 2017-07-17 10:27 | PN ---
Progress Note, Physician Chief Complaint: feels better with less coughing. History of Present Illness: Patient with fe Deficiency anemia had EGD yesterday and although Gastritis was noted the GI MD did not feel we discovered the cause of her bleeding. Patient tolerated the procedure well and appetite normal. Had BM. Will walk with assist of family member and walker today. Hb. stable at 8.4 GM. - Current Medication List Current Medications: Active Medications Acetaminophen (Tylenol -) 650 mg PO Q4H PRN PRN Reason: FEVER OR PAIN Last Admin: 07/14/17 14:44 Dose: 650 mg Arformoterol Tartrate (Brovana (Restricted To Pulmonology/Resp) -) 1 amp NEB BID [facility] Last Admin: 07/17/17 10:12 Dose: 1 amp Atorvastatin Calcium (Lipitor -) 40 mg PO HS [facility] Last Admin: 07/16/17 21:08 Dose: 40 mg Cyanocobalamin (Vitamin B12 -) 1,000 mcg PO DAILY [facility] Last Admin: 07/17/17 09:51 Dose: 1,000 mcg Escitalopram Oxalate (Lexapro -) 20 mg PO DAILY [facility] Last Admin: 07/17/17 09:51 Dose: 20 mg Furosemide (Lasix -) 20 mg PO DAILY [facility] Last Admin: 07/17/17 09:50 Dose: 20 mg Guaifenesin (Robitussin -) 10 ml PO Q4H PRN PRN Reason: COUGH Last Admin: 07/11/17 10:38 Dose: 10 ml Heparin Sodium (Porcine) (Heparin -) 5,000 unit SQ Q8H-IV [facility] Last Admin: 07/17/17 09:50 Dose: 5,000 unit Hydralazine HCl (Apresoline -) 50 mg PO BID [facility] Last Admin: 07/17/17 09:49 Dose: 50 mg Levothyroxine Sodium (Synthroid -) 100 mcg PO DAILY@0700 [facility] Last Admin: 07/17/17 06:04 Dose: 100 mcg Melatonin (Melatonin) 10 mg PO HS [facility] Last Admin: 07/16/17 21:08 Dose: 10 mg Non-Formulary Medication (Fluticasone Furoate [Flonase Sensimist]) 9.9 ml NS DAILY [facility] Ondansetron HCl (Zofran -) 4 mg PO Q6H PRN Pantoprazole Sodium (Protonix -) 40 mg PO BID [facility] Last Admin: 07/17/17 09:51 Dose: 40 mg Polyethylene Glycol (Miralax (For Daily Use) -) 17 gm PO BID [facility] Last Admin: 07/17/17 09:51 Dose: Not Given Prednisone (Deltasone -) 40 mg PO DAILY [facility] Tiotropium [place] (Spiriva -) 1 puff IH DAILY [facility] Last Admin: 07/16/17 14:27 Dose: 1 puff Valsartan (Diovan -) 320 mg PO DAILY [facility] Last Admin: 07/17/17 09:49 Dose: 320 mg - Objective Vital Signs: Vital Signs Temperature 97.5 F L 07/17/17 07:01 Pulse Rate 75 07/17/17 07:01 Respiratory Rate 20 07/17/17 07:01 Blood Pressure 155/65 07/17/17 07:01 O2 Sat by Pulse Oximetry (%) 99 07/16/17 21:00 Constitutional: Yes: Calm. No: Pallor Eyes: Yes: Conjunctiva Clear Cardiovascular: Yes: Regular Rate and Rhythm Respiratory: Yes: Diminished, Rhonchi (rare rhonchi at bases) Gastrointestinal: Yes: Soft. No: Tenderness Genitourinary: No: [place] Present Edema: No Neurological: Yes: Alert, Oriented (still slightly anxious) Labs: CBC, BMP 07/17/17 07:00 07/17/17 07:00 INR, PTT INR 1.21 (0.82-1.09) H 07/05/17 14:00 Problem List - Problems (1) COPD (chronic obstructive pulmonary disease) Assessment/Plan: Improved with less coughing but still on steroids with slight coughing. Code(s): J44.9 - CHRONIC OBSTRUCTIVE PULMONARY DISEASE, UNSPECIFIED Qualifiers : COPD type: COPD with acute exacerbation Qualified Code(s): J44.1 - Chronic obstructive pulmonary disease with (acute) exacerbation; J44.1 - Chronic obstructive pulmonary disease with (acute) exacerbation; J44.1 - Chronic obstructive pulmonary disease with (acute) exacerbation; J44.1 - Chronic obstructive pulmonary disease with (acute) exacerbation (2) Anxiety about health Assessment/Plan: Anxiety lessening somewhat with a lot of encouragement. Code(s): F41.8 - OTHER SPECIFIED ANXIETY DISORDERS (3) Congestive cardiac failure Assessment/Plan: Continues on lasix 20 mg a day. Code(s): I50.9 - HEART FAILURE, UNSPECIFIED Qualifiers: Congestive heart failure type: diastolic Congestive heart failure chronicity: chronic Qualified Code(s): I50.32 - Chronic diastolic ( congestive) heart failure; I50.32 - Chronic diastolic (congestive) heart failure ; I50.32 - Chronic diastolic (congestive) heart failure; I50.32 - Chronic diastolic (congestive) heart failure (4) Pneumonia Assessment/Plan: Appears resolved. Code(s): J18.9 - PNEUMONIA, UNSPECIFIED ORGANISM Qualifiers: Pneumonia type: due to unspecified organism Laterality: unspecified laterality Lung location: unspecified part of lung Qualified Code(s) : J18.9 - Pneumonia, unspecified organism; J18.9 - Pneumonia, unspecified organism (5) UTI (urinary tract infection) Assessment/Plan: Had 7 days of RX for ESBL E. Coli UTI. Code(s): N39.0 - URINARY TRACT INFECTION, SITE NOT SPECIFIED (6) Iron (Fe) deficiency anemia Assessment/Plan: Stable with Hb at 8.4GM but did have 3 IV FE Rx's Code(s): D50.9 - IRON DEFICIENCY ANEMIA, UNSPECIFIED
[2017-07-17 12:16] LABS: PLATELET COMMENT2 NO CLOTTING DETECTED; PLATELET ESTIMATE ADEQUATE (NORMAL); TOTAL CELLS COUNTED 100
[2017-07-17 12:21] LABS: REACTIVE LYMPHOCYTES 5 % (0-80)
[2017-07-17 12:22] LABS: SMUDGE CELLS FEW
--- NOTE | 2017-07-17 14:44 | PN ---
GI Progress Note Subjective: GI NOte: No adverse events during EGD which revealed no source of anemia. I have discussed the case with Dr Garcia which feels her pulmonary risk is acceptable. Dr. Davidson's note and clearance is also appreciated. I have again discussed the risks of colonoscopy with Michaela and she has granted an informed consent. I have scheduled her for 07/19 and will prep her tomorrow. Her last colonoscopy was in 12/13 and led to the removal of 10 polyps , many of which were in the right colon and adenomas. Her sister had colon cancer. - Objective Vital Signs: Vital Signs Temperature 98.4 F 07/17/17 14:12 Pulse Rate 70 07/17/17 14:12 Respiratory Rate 20 07/17/17 07:01 Blood Pressure 120/82 07/17/17 14:12 O2 Sat by Pulse Oximetry (%) 99 07/16/17 21:00 Constitutional: Calm ...Auscultate: Yes: Normoactive Bowel Sounds ...Palpate: Yes: Soft, Other (nontender) Psychiatric: Yes: Alert Labs: CBC, BMP 07/17/17 07:00 07/17/17 07:00 INR, PTT INR 1.21 (0.82-1.09) H 07/05/17 14:00 Assessment/Plan I have scheduled colonoscopy for 07/19 to exclude an underlying colon cancer as the cause of anemia.
[2017-07-17] MEDS: TIOTROPIUM BROMIDE 18 MCG/INH (DEVICE W/ 5 CAPSULES) IH SCH (16:10)
[2017-07-17] MEDS: PHYTONADIONE 10 MG/1 ML AMP IM SCH (16:10)
[2017-07-17] MEDS: ATORVASTATIN CA 40 MG TABLET (FP) PO SCH (21:53)
[2017-07-17] MEDS: MELATONIN 5 MG TABLETS PO SCH (21:53)
[2017-07-18] MEDS: HEPARIN NA (PORCINE) 5,000 UNITS/ML 1ML VIAL SQ SCH ×2 (01:18→10:02)
[2017-07-18] MEDS: LEVOTHYROXINE NA 100 MCG TABLET (FP) PO SCH (06:47)
[2017-07-18 08:04] LABS: MCH 23.3 pg (25.7-33.7); MCHC 31.2 g/dl (32.0-36.0); MEAN CELL VOLUME 74.5 fl (80-96); MEAN PLT VOLUME 8.3 fl (7.5-11.1); PLATELET COUNT 336 K/MM3 (134-434); WHITE BLOOD COUNT 11.5 K/mm3 (4.0-10.0)
[2017-07-18 08:18] LABS: INR 1.03 (0.82-1.09); PROTHROMBIN TIME (PATIENT) 11.6 SEC (9.98-11.88)
[2017-07-18] MEDS ORDERED: PEG3350/SOD SULF,BICARB,CL/KCL 4,000 ML SOLN.RECON PO ONE (09:00)
[2017-07-18 09:17] LABS: PLATELET ESTIMATE ADEQUATE (NORMAL); TOTAL CELLS COUNTED 100
[2017-07-18] MEDS ORDERED: PT OWN MED DRAWER 7, Y5N ONE ×3 (09:55→21:25)
[2017-07-18] MEDS: predniSONE 20 MG TABLET (UD) PO SCH (10:01)
[2017-07-18] MEDS: FUROSEMIDE 20 MG TABLET (FP) PO SCH (10:01)
[2017-07-18] MEDS: hydrALAZINE HCL 50 MG TABLET (FP) PO SCH ×2 (10:01→21:27)
[2017-07-18] MEDS: VALSARTAN 160 MG TABLET (UD) PO SCH (10:01)
[2017-07-18] MEDS: PHYTONADIONE 10 MG/1 ML AMP IM SCH (10:02)
[2017-07-18] MEDS: TIOTROPIUM BROMIDE 18 MCG/INH (DEVICE W/ 5 CAPSULES) IH SCH (10:02)
[2017-07-18] MEDS: ESCITALOPRAM OXALATE 20 MG TABLET (FP) PO SCH (10:02)
[2017-07-18] MEDS: CYANOCOBALAMIN 1,000 MCG TABLET (FP) PO SCH (10:02)
[2017-07-18] MEDS: POLYETHYLENE GLYCOL 3350 119 GM BTL PO SCH ×2 (10:03→21:29)
[2017-07-18] MEDS: PANTOPRAZOLE 40 MG TABLET (FP) PO SCH ×2 (10:05→21:26)
--- NOTE | 2017-07-18 10:29 | PN ---
GI Progress Note Subjective: GI NOte: NO overt bleeding or abdominal pain. Starting bowel prep. - Objective Vital Signs: Vital Signs Temperature 97.5 F L 07/18/17 08:04 Pulse Rate 64 07/18/17 08:04 Respiratory Rate 20 07/18/17 08:04 Blood Pressure 172/64 07/18/17 08:04 O2 Sat by Pulse Oximetry (%) 99 07/17/17 20:19 Constitutional: Calm ...Auscultate: Yes: Normoactive Bowel Sounds ...Palpate: Yes: Soft, Other (nontender) Labs: CBC, BMP 07/18/17 07:00 07/17/17 07:00 INR, PTT INR 1.03 (0.82-1.09) 07/18/17 07:00 Assessment/Plan Prepping for colonoscopy tomorrow. Discussed plan with Dr Claire.
[2017-07-18] MEDS: ARFORMOTEROL TARTRATE 15 MCG/2 ML VIAL NEB SCH ×2 (10:50→22:19)
--- NOTE | 2017-07-18 10:51 | PN ---
Progress Note (short form) - Note Progress Note: Overall breathing feels better. Some residual cough. No acute events overnight. Intake & Output 07/15/17 07/16/17 07/17/17 07/18/17 23:59 23:59 23:59 23:59 Intake Total 650 100 350 200 Balance 650 100 350 200 Weight 161 lb 161 lb 14.4 oz 156 lb 4 oz Last Vital Signs Temp Pulse Resp BP Pulse Ox 97.5 F L 64 20 172/64 99 07/18/17 08:04 07/18/17 08:04 07/18/17 08:04 07/18/17 08:04 07/17/17 20:19 Active Medications Acetaminophen (Tylenol -) 650 mg PO Q4H PRN PRN Reason: FEVER OR PAIN Last Admin: 07/14/17 14:44 Dose: 650 mg Arformoterol Tartrate (Brovana (Restricted To Pulmonology/Resp) -) 1 amp NEB BID [facility] Last Admin: 07/17/17 21:57 Dose: 1 amp Atorvastatin Calcium (Lipitor -) 40 mg PO HS [facility] Last Admin: 07/17/17 21:53 Dose: 40 mg Bisacodyl (Dulcolax -) 20 mg PO ONCE ONE Stop: 07/18/17 18:01 Cyanocobalamin (Vitamin B12 -) 1,000 mcg PO DAILY [facility] Last Admin: 07/18/17 10:02 Dose: 1,000 mcg Escitalopram Oxalate (Lexapro -) 20 mg PO DAILY [facility] Last Admin: 07/18/17 10:02 Dose: 20 mg Furosemide (Lasix -) 20 mg PO DAILY [facility] Last Admin: 07/18/17 10:01 Dose: 20 mg Guaifenesin (Robitussin -) 10 ml PO Q4H PRN PRN Reason: COUGH Last Admin: 07/11/17 10:38 Dose: 10 ml Heparin Sodium (Porcine) (Heparin -) 5,000 unit SQ Q8H-IV [facility] Stop: 07/18/17 15:00 Last Admin: 07/18/17 10:02 Dose: 5,000 unit Hydralazine HCl (Apresoline -) 50 mg PO BID [facility] Last Admin: 07/18/17 10:01 Dose: 50 mg Levothyroxine Sodium (Synthroid -) 100 mcg PO DAILY@0700 [facility] Last Admin: 07/18/17 06:47 Dose: 100 mcg Melatonin (Melatonin) 10 mg PO HS [facility] Last Admin: 07/17/17 21:53 Dose: 10 mg Non-Formulary Medication (Fluticasone Furoate [Flonase Sensimist]) 9.9 ml NS DAILY [facility] Ondansetron HCl (Zofran -) 4 mg PO Q6H PRN Pantoprazole Sodium (Protonix -) 40 mg PO BID [facility] Last Admin: 07/18/17 10:05 Dose: 40 mg Phytonadione (Aqua Mephyton Injection -) 10 mg IM DAILY [facility] Stop: 07/20/17 14:59 Last Admin: 07/18/17 10:02 Dose: 10 mg Polyethylene Glycol (Miralax (For Daily Use) -) 17 gm PO BID [facility] Last Admin: 07/18/17 10:03 Dose: Not Given Prednisone (Deltasone -) 40 mg PO DAILY [facility] Last Admin: 07/18/17 10:01 Dose: 40 mg Tiotropium [place] (Spiriva -) 1 puff IH DAILY [facility] Last Admin: 07/18/17 10:02 Dose: 1 puff Valsartan (Diovan -) 320 mg PO DAILY [facility] Last Admin: 07/18/17 10:01 Dose: 320 mg Constitutional: Yes: NAD Eyes: Yes: WNL HENT: Yes: WNL Neck: Yes: WNL Cardiovascular: Yes: Regular Rate and Rhythm, S1, S2 Respiratory: Yes: Bibasilar crackles/Rhonchi Gastrointestinal: Yes: Normal Bowel Sounds, Soft Extremities: Yes: WNL Edema: No Lab: Laboratory Results - last 24 hr 07/17/17 07/17/17 07/18/17 07:00 07:00 07:00 WBC 10.7 H 11.5 H RBC 3.52 L 3.48 L Hgb 8.4 L 8.1 L Hct 26.3 L 26.0 L MCV 74.7 L 74.5 L MCH 23.7 L 23.3 L MCHC 31.7 L 31.2 L RDW 19.9 H 20.0 H Plt Count 356 336 MPV 8.4 8.3 Total Counted 100 100 Neutrophils % No Result Required. Neutrophils % (Manual) 83 H 64 D Band Neuts % (Manual) 3 Lymphocytes % No Result Required. Lymphocytes % (Manual) 5 L D 26 D Monocytes % (Manual) 4 10 D Smudge Cells Few Platelet Estimate Adequate Adequate Platelet Comment No clotting detected No clumping noted PT with INR INR Carcinoembryonic Ag 2.7 07/18/17 07:00 WBC RBC Hgb Hct MCV MCH MCHC RDW Plt Count MPV Total Counted Neutrophils % Neutrophils % (Manual) Band Neuts % (Manual) Lymphocytes % Lymphocytes % (Manual) Monocytes % (Manual) Smudge Cells Platelet Estimate Platelet Comment PT with INR 11.60 INR 1.03 Carcinoembryonic Ag Problem List - Problems (1) COPD (chronic obstructive pulmonary disease) Code(s): J44.9 - CHRONIC OBSTRUCTIVE PULMONARY DISEASE, UNSPECIFIED Qualifiers : COPD type: COPD with acute exacerbation Qualified Code(s): J44.1 - Chronic obstructive pulmonary disease with (acute) exacerbation; J44.1 - Chronic obstructive pulmonary disease with (acute) exacerbation; J44.1 - Chronic obstructive pulmonary disease with (acute) exacerbation; J44.1 - Chronic obstructive pulmonary disease with (acute) exacerbation (2) HCAP (healthcare-associated pneumonia) Code(s): J18.9 - PNEUMONIA, UNSPECIFIED ORGANISM (3) Hypoxia Code(s): R09.02 - HYPOXEMIA (4) Pneumonia Code(s): J18.9 - PNEUMONIA, UNSPECIFIED ORGANISM Qualifiers: Pneumonia type: due to unspecified organism Laterality: unspecified laterality Lung location: unspecified part of lung Qualified Code(s) : J18.9 - Pneumonia, unspecified organism; J18.9 - Pneumonia, unspecified organism (5) Shortness of breath Code(s): R06.02 - SHORTNESS OF BREATH (6) Coronary artery disease Code(s): I25.10 - ATHSCL HEART DISEASE OF [place] CORONARY ARTERY W/O ANG PCTRS Qualifiers: Coronary Disease-Associated Artery/Lesion type: [place] artery [place] vs. transplanted heart: [place] heart Associated angina: without angina Qualified Code(s): I25.10 - Atherosclerotic heart disease of [place] coronary artery without angina pectoris; I25.10 - Atherosclerotic heart disease of [place] coronary artery without angina pectoris; I25.10 - Atherosclerotic heart disease of [place] coronary artery without angina pectoris (7) Dyspnea Code(s): R06.00 - DYSPNEA, UNSPECIFIED Qualifiers: Dyspnea type: dyspnea on exertion Qualified Code(s): R06.09 - Other forms of dyspnea; R06.09 - Other forms of dyspnea (8) Acute hypoxemic respiratory failure Code(s): J96.01 - ACUTE RESPIRATORY FAILURE WITH HYPOXIA (9) Hypothyroid Code(s): E03.9 - HYPOTHYROIDISM, UNSPECIFIED Qualifiers: Hypothyroidism type: acquired Qualified Code(s): E03.9 - Hypothyroidism, unspecified; E03.9 - Hypothyroidism, unspecified; E03.9 - Hypothyroidism, unspecified (10) Acute kidney injury Code(s): N17.9 - ACUTE KIDNEY FAILURE, UNSPECIFIED (11) Acute on chronic diastolic (congestive) heart failure Code(s): I50.33 - ACUTE ON CHRONIC DIASTOLIC (CONGESTIVE) HEART FAILURE (12) H/O heart artery stent Code(s): Z95.5 - PRESENCE OF CORONARY ANGIOPLASTY IMPLANT AND GRAFT (13) Hypertension Code(s): I10 - ESSENTIAL (PRIMARY) HYPERTENSION Qualifiers: Hypertension type: essential hypertension Qualified Code(s): I10 - Essential (primary) hypertension; I10 - Essential (primary) hypertension; I10 - Essential (primary) hypertension Assessment/Plan IMP ACUTE HYPOXEMIC RESPIRATORY FAILURE IMPROVING PNEUMONIA HAP COPD UTI WITH BACTEREMIA DIASTOLIC HF ASHD S/P STENT GERD ACUTE KIDNEY INJURY PLAN IV ANTIBIOTICS PER ID INHALED BRONCHODILATORS O2 PREDNISONE 40MG OD MONITOR LYES,RENAL FUNCTION SHE IS AT AN INCREASED BUT REASONABLE RISK : THERE IS NO PULMONARY CONTRAINDICATION FOR COLONOSCOPY DR SHOEMAKER
--- NOTE | 2017-07-18 10:56 | PN ---
Progress Note (short form) - Note Progress Note: s: no cp palps dizzy; mild sob/cough persists but continues to improve, nearly resolved o: Vital Signs Period Temp Pulse Resp BP Sys/Rios Pulse Ox Last 24 Hr 97.5 F-98.4 F 64-77 20-20 120-172/60-82 99 nad no jvd rrr s1s2 no mrg trace wheezes. nl effort aaox3 no le e/c/c abd nt nd pos bs no jaundice diaphoresis Current Medications Generic Name Dose Route Start Last Admin Trade Name Freq PRN Reason Stop Dose Admin Acetaminophen 650 mg 07/05/17 15:58 07/14/17 14:44 Tylenol - PO 650 mg Q4H PRN Administration FEVER OR PAIN Arformoterol Tartrate 1 amp 07/10/17 13:00 07/17/17 21:57 Brovana (Restricted To Pulmonology/Resp) - NEB 1 amp BID [facility] Administration Atorvastatin Calcium 40 mg 07/05/17 22:00 07/17/17 21:53 Lipitor - PO 40 mg HS [facility] Administration Bisacodyl 20 mg 07/18/17 18:00 Dulcolax - PO 07/18/17 18:01 ONCE ONE Cyanocobalamin 1,000 mcg 07/06/17 10:00 07/18/17 10:02 Vitamin B12 - PO 1,000 mcg DAILY [facility] Administration Escitalopram Oxalate 20 mg 07/06/17 10:00 07/18/17 10:02 Lexapro - PO 20 mg DAILY [facility] Administration Furosemide 20 mg 07/13/17 11:00 07/18/17 10:01 Lasix - PO 20 mg DAILY [facility] Administration Guaifenesin 10 ml 07/08/17 09:15 07/11/17 10:38 Robitussin - PO 10 ml Q4H PRN Administration COUGH Heparin Sodium (Porcine) 5,000 unit 07/05/17 18:00 07/18/17 10:02 Heparin - SQ 07/18/17 15:00 5,000 unit Q8H-IV [facility] Administration Hydralazine HCl 50 mg 07/12/17 22:00 07/18/17 10:01 Apresoline - PO 50 mg BID [facility] Administration Levothyroxine Sodium 100 mcg 07/06/17 07:00 07/18/17 06:47 Synthroid - PO 100 mcg DAILY@0700 [facility] Administration Melatonin 10 mg 07/05/17 22:00 07/17/17 21:53 Melatonin PO 10 mg HS [facility] Administration Non-Formulary Medication 9.9 ml 07/06/17 10:00 Fluticasone Furoate [Flonase Sensimist] NS DAILY [facility] Ondansetron HCl 4 mg 07/07/17 01:50 Zofran - PO Q6H PRN Pantoprazole Sodium 40 mg 07/05/17 22:00 07/18/17 10:05 Protonix - PO 40 mg BID [facility] Administration Phytonadione 10 mg 07/17/17 15:00 07/18/17 10:02 Aqua Mephyton Injection - IM 07/20/17 14:59 10 mg DAILY [facility] Administration Polyethylene Glycol 17 gm 07/05/17 22:00 07/18/17 10:03 Miralax (For Daily Use) - PO Not Given BID [facility] Prednisone 40 mg 07/18/17 10:00 07/18/17 10:01 Deltasone - PO 40 mg DAILY [facility] Administration Tiotropium [place] 1 puff 07/07/17 13:00 07/18/17 10:02 Spiriva - IH 1 puff DAILY [facility] Administration Valsartan 320 mg 07/11/17 10:00 07/18/17 10:01 Diovan - PO 320 mg DAILY [facility] Administration CBC, BMP 07/18/17 07:00 07/17/17 07:00 ekg: possible ectopic atrial rhythm with short pr interval and pac's. borderline prolonged qt. no acute ischemic changes. echo 03/2017: nl lv/rv, mild ar/mr mibi 03/2017: nl mpi, nl lvef A/P 83 f hx htn, hld, hypothyroid, cad s/p pci 2007 (lad), MR s/p repair, le edema/ venous insuff, chronic URIs from chronic laryngeal reflux and recent admit for pna last week p/w worsening sob thought to have persistent pna with superimposed uti. sob, pna, copd: - initially did not appear to be 2/2 chf, IVF given when pt hypotensive. BP now improved. - got abx for pna, uti - mgm't of possible contribution from copd per pmd. - cont po lasix h/o acute diastolic chf likely secondary to hypertensive emergency (04/19): -recent echo and mibi unremarkable -cont po lasix chronic LE edema/venous insuff: -stable currently htn: -Initially bp's held for hypotension, now being added back on. - of note, bystolic stopped on prior admit due to 2/2 bradycardia, also with h/ o worsened edema with ccb - 07/12: bp still suboptimal on valsartan and low dose hydralazine. Will increase hydralazine to 50 bid. - 07/13-: bp improved, con't current regimen, con't to monitor for need to uptitrate cad s/p remote pci: -no recent angina or ischemia (03/20). Echo 03/2017 without significant abnormality. -trop currently normal, no ekg changes -cont home regimen statin, arb - will hold ASA in light of worsening anemia. On IV iron transfusions per heme. anemia: -egd done, no source of anemia seen, planned for colonoscopy tomorrow -no cardiac contraindications to planned colonoscopy
--- NOTE | 2017-07-18 11:05 | PN ---
Progress Note (short form) - Note Progress Note: Patient with a Hx of COPD with Exacerbation, Pneumonia, ASHD, Anemia and Liver mass is slowly improving. Because of unknown reasons for her Fe Def anemia an EGD was performed Wednesday and did not reveal the cause of bleeding so Colonoscopy will be performed Wednesday. Bowel prep to start now. Hb8.1 and patient seen by cardiology and Pumonary services. There are no medical contraindications to this medically necessary test. CEA and AFP are normal and so far her renal lab has not been ideal for IV contrast for Liver scan re: mass. The patient is aware of the need for the test and agrees. On Exam: Vital Signs Temp 97.5 F L 07/18/17 08:04 Pulse 64 07/18/17 08:04 Resp 20 07/18/17 08:04 BP 172/64 07/18/17 08:04 Pulse Ox 99 07/17/17 20:19 Intake & Output 07/17/17 07/17/17 07/18/17 11:59 23:59 11:59 Intake Total 350 200 Balance 350 200 Weight 156 lb 4 oz Intake: Oral 350 200 Other: Voiding Method Toilet Toilet Toilet # Unmeasured Voids Void 1 2 2 Bowel Movement No Weight Measurement Method Built in Bedscale Alert In Bed Chest: decreased with nearly no rhonchi Cor; Reg Abd: Soft Ext: No edema Abnormal Lab Results 07/17/17 07/18/17 07:00 07:00 WBC 10.7 H 11.5 H RBC 3.52 L 3.48 L Hgb 8.4 L 8.1 L Hct 26.3 L 26.0 L MCV 74.7 L 74.5 L MCH 23.7 L 23.3 L MCHC 31.7 L 31.2 L RDW 19.9 H 20.0 H Neutrophils % (Manual) 83 H Lymphocytes % (Manual) 5 L D IMP: COPD with exacerbation resolving Pneumonia now off antibiotics Acute UTI ESBL treated ASHD Iron def Anemia Liver Mass Anxiety Re: Illness Plan: Colonoscopy AM Recheck Lab PT for ambulation ? SNF post hospital ?CT scan + contrast before D/C if renal lab OK Problem List - Problems (1) COPD (chronic obstructive pulmonary disease) Code(s): J44.9 - CHRONIC OBSTRUCTIVE PULMONARY DISEASE, UNSPECIFIED Qualifiers : COPD type: COPD with acute exacerbation Qualified Code(s): J44.1 - Chronic obstructive pulmonary disease with (acute) exacerbation; J44.1 - Chronic obstructive pulmonary disease with (acute) exacerbation; J44.1 - Chronic obstructive pulmonary disease with (acute) exacerbation; J44.1 - Chronic obstructive pulmonary disease with (acute) exacerbation (2) Anxiety about health Code(s): F41.8 - OTHER SPECIFIED ANXIETY DISORDERS (3) Congestive cardiac failure Code(s): I50.9 - HEART FAILURE, UNSPECIFIED Qualifiers: Congestive heart failure type: diastolic Congestive heart failure chronicity: chronic Qualified Code(s): I50.32 - Chronic diastolic ( congestive) heart failure; I50.32 - Chronic diastolic (congestive) heart failure ; I50.32 - Chronic diastolic (congestive) heart failure; I50.32 - Chronic diastolic (congestive) heart failure (4) Pneumonia Code(s): J18.9 - PNEUMONIA, UNSPECIFIED ORGANISM Qualifiers: Pneumonia type: due to unspecified organism Laterality: unspecified laterality Lung location: unspecified part of lung Qualified Code(s) : J18.9 - Pneumonia, unspecified organism; J18.9 - Pneumonia, unspecified organism (5) UTI (urinary tract infection) Code(s): N39.0 - URINARY TRACT INFECTION, SITE NOT SPECIFIED (6) Iron (Fe) deficiency anemia Code(s): D50.9 - IRON DEFICIENCY ANEMIA, UNSPECIFIED
[2017-07-18] MEDS ORDERED: BISACODYL 5 MG TABLET.DR (FP) PO ONE (18:00)
[2017-07-18] MEDS: ATORVASTATIN CA 40 MG TABLET (FP) PO SCH (21:27)
[2017-07-18] MEDS: MELATONIN 5 MG TABLETS PO SCH (21:27)
[2017-07-19] MEDS: LEVOTHYROXINE NA 100 MCG TABLET (FP) PO SCH (06:11)
[2017-07-19 08:15] LABS: MCH 23.7 pg (25.7-33.7); MCHC 31.3 g/dl (32.0-36.0); MEAN CELL VOLUME 75.7 fl (80-96); MEAN PLT VOLUME 8.5 fl (7.5-11.1); PLATELET COUNT 346 K/MM3 (134-434); RDW 20.6 % (11.6-15.6); WHITE BLOOD COUNT 10.3 K/mm3 (4.0-10.0)
[2017-07-19 08:46] LABS: INR 1.04 (0.82-1.09); PROTHROMBIN TIME (PATIENT) 11.8 SEC (9.98-11.88)
[2017-07-19 08:54] LABS: ANION GAP 10 (8-16); CALCIUM 8.8 mg/dL (8.5-10.1); CO2 28 mmol/L (21-32); CREATININE 0.8 mg/dL (0.55-1.02); GLUCOSE,RANDOM 66 mg/dL (74-106)
[2017-07-19 09:43] LABS: PLATELET ESTIMATE ADEQUATE (NORMAL); TOTAL CELLS COUNTED 100
[2017-07-19] MEDS: PHYTONADIONE 10 MG/1 ML AMP IM SCH (09:43)
[2017-07-19] MEDS: PANTOPRAZOLE 40 MG TABLET (FP) PO SCH ×2 (09:43→21:24)
[2017-07-19 09:44] LABS: BASOPHIL (MANUAL) 1 % (0-2.0); MYELOCYTE 2 % (0-2)
[2017-07-19] MEDS: FUROSEMIDE 20 MG TABLET (FP) PO SCH (09:44)
[2017-07-19 09:45] LABS: ANISOCYTOSIS 2+; HYPOCHROMIA 1+; MACROCYTOSIS 1+; MICROCYTOSIS 1+; OVALOCYTE 1+; TEAR DROP CELLS 1+
--- NOTE | 2017-07-19 09:45 | PN ---
Progress Note, Physician - Current Medication List Current Medications: Active Medications Acetaminophen (Tylenol -) 650 mg PO Q4H PRN PRN Reason: FEVER OR PAIN Last Admin: 07/14/17 14:44 Dose: 650 mg Arformoterol Tartrate (Brovana (Restricted To Pulmonology/Resp) -) 1 amp NEB BID [facility] Last Admin: 07/18/17 22:19 Dose: 1 amp Atorvastatin Calcium (Lipitor -) 40 mg PO HS [facility] Last Admin: 07/18/17 21:27 Dose: 40 mg Cyanocobalamin (Vitamin B12 -) 1,000 mcg PO DAILY [facility] Last Admin: 07/18/17 10:02 Dose: 1,000 mcg Escitalopram Oxalate (Lexapro -) 20 mg PO DAILY [facility] Last Admin: 07/18/17 10:02 Dose: 20 mg Furosemide (Lasix -) 20 mg PO DAILY [facility] Last Admin: 07/18/17 10:01 Dose: 20 mg Guaifenesin (Robitussin -) 10 ml PO Q4H PRN PRN Reason: COUGH Last Admin: 07/11/17 10:38 Dose: 10 ml Hydralazine HCl (Apresoline -) 50 mg PO BID [facility] Last Admin: 07/18/17 21:27 Dose: 50 mg Levothyroxine Sodium (Synthroid -) 100 mcg PO DAILY@0700 [facility] Last Admin: 07/19/17 06:11 Dose: Not Given Melatonin (Melatonin) 10 mg PO [facility] Last Admin: 07/18/17 21:27 Dose: 10 mg Non-Formulary Medication (Fluticasone Furoate [Flonase Sensimist]) 9.9 ml NS DAILY [facility] Ondansetron HCl (Zofran -) 4 mg PO Q6H PRN Pantoprazole Sodium (Protonix -) 40 mg PO BID [facility] Last Admin: 07/18/17 21:26 Dose: 40 mg Phytonadione (Aqua Mephyton Injection -) 10 mg IM DAILY [facility] Stop: 07/20/17 14:59 Last Admin: 07/18/17 10:02 Dose: 10 mg Polyethylene Glycol (Miralax (For Daily Use) -) 17 gm PO BID [facility] Last Admin: 07/18/17 21:29 Dose: Not Given Prednisone (Deltasone -) 40 mg PO DAILY [facility] Last Admin: 07/18/17 10:01 Dose: 40 mg Tiotropium [place] (Spiriva -) 1 puff IH DAILY [facility] Last Admin: 07/18/17 10:02 Dose: 1 puff Valsartan (Diovan -) 320 mg PO DAILY [facility] Last Admin: 07/18/17 10:01 Dose: 320 mg - Objective Vital Signs: Vital Signs Temperature 97.1 F L 07/19/17 06:10 Pulse Rate 88 07/19/17 06:10 Respiratory Rate 20 07/19/17 06:10 Blood Pressure 144/72 07/19/17 06:10 O2 Sat by Pulse Oximetry (%) 99 07/18/17 09:00 Labs: CBC, BMP 07/19/17 06:00 07/19/17 06:00 INR, PTT INR 1.04 (0.82-1.09) 07/19/17 06:00 Assessment/Plan ekg: possible ectopic atrial rhythm with short pr interval and pac's. borderline prolonged qt. no acute ischemic changes. echo 03/2017: nl lv/rv, mild ar/mr mibi 03/2017: nl mpi, nl lvef A/P 81 f hx htn, hld, hypothyroid, cad s/p pci 2007 (lad), MR s/p repair, le edema/ venous insuff, chronic URIs from chronic laryngeal reflux and recent admit for pna last week p/w worsening sob thought to have persistent pna with superimposed uti. sob, pna, copd: - initially did not appear to be 2/2 chf, IVF given when pt hypotensive. BP now improved. - got abx for pna, uti - mgm't of possible contribution from copd per pmd. - cont po lasix h/o acute diastolic chf likely secondary to hypertensive emergency (04/19): -recent echo and mibi unremarkable -cont po lasix chronic LE edema/venous insuff: -stable currently htn: -Initially bp's held for hypotension, now being added back on. - of note, bystolic stopped on prior admit due to 2/2 bradycardia, also with h/ o worsened edema with ccb - 07/12: bp still suboptimal on valsartan and low dose hydralazine. Will increase hydralazine to 50 bid. - 07/13-: bp improved, con't current regimen, con't to monitor for need to uptitrate cad s/p remote pci: -no recent angina or ischemia (03/20). Echo 03/2017 without significant abnormality. -trop currently normal, no ekg changes -cont home regimen statin, arb - will hold ASA in light of worsening anemia. On IV iron transfusions per heme. anemia: -egd done, no source of anemia seen, planned for colonoscopy tomorrow -no cardiac contraindications to planned colonoscopy
[2017-07-19] MEDS: VALSARTAN 160 MG TABLET (UD) PO SCH (09:46)
[2017-07-19] MEDS: hydrALAZINE HCL 50 MG TABLET (FP) PO SCH ×2 (09:47→21:24)
[2017-07-19] MEDS: predniSONE 20 MG TABLET (UD) PO SCH (09:47)
[2017-07-19] MEDS: POLYETHYLENE GLYCOL 3350 119 GM BTL PO SCH (09:48)
[2017-07-19] MEDS: ESCITALOPRAM OXALATE 20 MG TABLET (FP) PO SCH (09:48)
[2017-07-19] MEDS: CYANOCOBALAMIN 1,000 MCG TABLET (FP) PO SCH (09:49)
[2017-07-19] MEDS: TIOTROPIUM BROMIDE 18 MCG/INH (DEVICE W/ 5 CAPSULES) IH SCH (09:50)
--- NOTE | 2017-07-19 10:00 | PN ---
Progress Note (short form) - Note Progress Note: PULMONARY For colonoscopy this AM. Denies shortness of breath, cough or wheezing. Last Vital Signs Temp Pulse Resp BP Pulse Ox 97.1 F L 88 20 144/72 99 07/19/17 06:10 07/19/17 06:10 07/19/17 06:10 07/19/17 06:10 07/18/17 09:00 Gen: NAD in chair Heart: RRR Lung: distant breath sounds Abd: soft, nontender Ext: no edema CBC, BMP 07/19/17 06:00 07/19/17 06:00 Active Medications Acetaminophen (Tylenol -) 650 mg PO Q4H PRN PRN Reason: FEVER OR PAIN Last Admin: 07/14/17 14:44 Dose: 650 mg Arformoterol Tartrate (Brovana (Restricted To Pulmonology/Resp) -) 1 amp NEB BID [facility] Last Admin: 07/18/17 22:19 Dose: 1 amp Atorvastatin Calcium (Lipitor -) 40 mg PO HS [facility] Last Admin: 07/18/17 21:27 Dose: 40 mg Cyanocobalamin (Vitamin B12 -) 1,000 mcg PO DAILY [facility] Last Admin: 07/19/17 09:49 Dose: 1,000 mcg Escitalopram Oxalate (Lexapro -) 20 mg PO DAILY [facility] Last Admin: 07/19/17 09:48 Dose: 20 mg Furosemide (Lasix -) 20 mg PO DAILY [facility] Last Admin: 07/19/17 09:44 Dose: 20 mg Guaifenesin (Robitussin -) 10 ml PO Q4H PRN PRN Reason: COUGH Last Admin: 07/11/17 10:38 Dose: 10 ml Hydralazine HCl (Apresoline -) 50 mg PO BID [facility] Last Admin: 07/19/17 09:47 Dose: 50 mg Levothyroxine Sodium (Synthroid -) 100 mcg PO DAILY@0700 [facility] Last Admin: 07/19/17 06:11 Dose: Not Given Melatonin (Melatonin) 10 mg PO HS [facility] Last Admin: 07/18/17 21:27 Dose: 10 mg Non-Formulary Medication (Fluticasone Furoate [Flonase Sensimist]) 9.9 ml NS DAILY [facility] Ondansetron HCl (Zofran -) 4 mg PO Q6H PRN Pantoprazole Sodium (Protonix -) 40 mg PO BID [facility] Last Admin: 07/19/17 09:43 Dose: 40 mg Phytonadione (Aqua Mephyton Injection -) 10 mg IM DAILY [facility] Stop: 07/20/17 14:59 Last Admin: 07/19/17 09:43 Dose: 10 mg Polyethylene Glycol (Miralax (For Daily Use) -) 17 gm PO BID [facility] Last Admin: 07/19/17 09:48 Dose: Not Given Prednisone (Deltasone -) 40 mg PO DAILY [facility] Last Admin: 07/19/17 09:47 Dose: 40 mg Tiotropium [place] (Spiriva -) 1 puff IH DAILY [facility] Last Admin: 07/19/17 09:50 Dose: 1 puff Valsartan (Diovan -) 320 mg PO DAILY [facility] Last Admin: 07/19/17 09:46 Dose: 320 mg A/P Pneumonia/UTI treated COPD LV Diastolic Dysfunction CAD Acute Kidney Injury resolving - completed antibiotics - inhaled bronchodilators - O2 to keep SpO2 >90% - DVT prophylaxis - no pulmonary contraindications for planned colonoscopy
--- NOTE | 2017-07-19 10:08 | PN ---
Progress Note (short form) - Note Progress Note: Patient seen and examined this AM. Having multiple loose bowel movements through the night, mostly water currently occasional cough but less short of breath. Trying to walk on her own to the bathroom and with family in the hallways No dysuria. No chest pain. For colonoscopy this morning after evaluation by a cardiac and pulmonary MDs. On exam: Vital Signs Temp 97.3 F L 07/19/17 15:56 Pulse 79 07/19/17 15:56 Resp 18 07/19/17 15:56 BP 131/46 07/19/17 15:56 Pulse Ox 96 07/19/17 12:37 Intake & Output 07/18/17 07/19/17 07/19/17 23:59 11:59 23:59 Intake Total 400 350 440 Balance 400 350 440 Weight 158 lb 2 oz Intake: IV 100 Oral 400 250 440 Other: Voiding Method Toilet Toilet Toilet # Unmeasured Voids Void 3 1 1 Bowel Movement Yes Yes Yes: watery # Bowel Movements 4 Weight Measurement Method Built in Bedscale patient alert Conjunctiva not pale Chest rare rhonchi at bases. Heart regular Abdomen slightly distended but soft with slightly increased bowel sounds. Extremities no pedal edema. Abnormal Lab Results 07/19/17 07/19/17 06:00 06:00 WBC 10.3 H Hgb 8.6 L Hct 27.6 L MCV 75.7 L MCH 23.7 L MCHC 31.3 L RDW 20.6 H Monocytes % (Manual) 14 H Potassium 3.3 L BUN 28 H D Random Glucose 66 L Impression: Iron deficiency anemia. Gastritis. COPD with acute exacerbation, improved. Pneumonia, resolved. Anxiety about illness. ASHD UTI treated. Plan: Await colonoscopy report Will consider CAT scan with contrast of liver is BUN and creatinine are stable. Will need SNF post discharge Problem List - Problems (1) COPD (chronic obstructive pulmonary disease) Code(s): J44.9 - CHRONIC OBSTRUCTIVE PULMONARY DISEASE, UNSPECIFIED Qualifiers : COPD type: COPD with acute exacerbation Qualified Code(s): J44.1 - Chronic obstructive pulmonary disease with (acute) exacerbation; J44.1 - Chronic obstructive pulmonary disease with (acute) exacerbation; J44.1 - Chronic obstructive pulmonary disease with (acute) exacerbation; J44.1 - Chronic obstructive pulmonary disease with (acute) exacerbation (2) Anxiety about health Code(s): F41.8 - OTHER SPECIFIED ANXIETY DISORDERS (3) Congestive cardiac failure Code(s): I50.9 - HEART FAILURE, UNSPECIFIED Qualifiers: Congestive heart failure type: diastolic Congestive heart failure chronicity: chronic Qualified Code(s): I50.32 - Chronic diastolic ( congestive) heart failure; I50.32 - Chronic diastolic (congestive) heart failure ; I50.32 - Chronic diastolic (congestive) heart failure; I50.32 - Chronic diastolic (congestive) heart failure (4) Pneumonia Code(s): J18.9 - PNEUMONIA, UNSPECIFIED ORGANISM Qualifiers: Pneumonia type: due to unspecified organism Laterality: unspecified laterality Lung location: unspecified part of lung Qualified Code(s) : J18.9 - Pneumonia, unspecified organism; J18.9 - Pneumonia, unspecified organism (5) UTI (urinary tract infection) Code(s): N39.0 - URINARY TRACT INFECTION, SITE NOT SPECIFIED (6) Iron (Fe) deficiency anemia Code(s): D50.9 - IRON DEFICIENCY ANEMIA, UNSPECIFIED
[2017-07-19] MEDS: ARFORMOTEROL TARTRATE 15 MCG/2 ML VIAL NEB SCH ×2 (10:20→21:52)
[2017-07-19] MEDS ORDERED: LIDOCAINE HCL/PF 2% SDV 5ML VIAL ONE (11:05)
[2017-07-19] MEDS ORDERED: PROPOFOL 20 ML ONE (11:05)
[2017-07-19] MEDS ORDERED: ETOMIDATE 20 MG/10 ML AMPUL IVPUSH ONE (11:11)
[2017-07-19] MEDS ORDERED: PT OWN MED DRAWER 7, Y5N ONE ×2 (11:16→20:53)
--- NOTE | 2017-07-19 11:46 | PN ---
Progress Note (short form) - Note Progress Note: GI Procedure NOte: Please see scanned colonoscopy report. Three polyps removed. No active focus of bleeding seen. The polyps seem too small to account for the anemia. Should ultimately have a capsule endoscopy as outpatient which can be done by Dr Knight in our office. Please avoid anticoagulants for 5 days , ie. heparin.
[2017-07-19] MEDS: MELATONIN 5 MG TABLETS PO SCH (21:24)
[2017-07-19] MEDS: ATORVASTATIN CA 40 MG TABLET (FP) PO SCH (21:24)
[2017-07-20] MEDS: LEVOTHYROXINE NA 100 MCG TABLET (FP) PO SCH (06:08)
[2017-07-20 08:36] LABS: BASOPHIL 0.2 % (0-2.0); EOSINOPHIL 0.5 % (0-4.5); MCH 24.3 pg (25.7-33.7); MCHC 32.1 g/dl (32.0-36.0); MEAN CELL VOLUME 75.6 fl (80-96); MEAN PLT VOLUME 8.5 fl (7.5-11.1); PLATELET COUNT 309 K/MM3 (134-434); RDW 21.6 % (11.6-15.6); WHITE BLOOD COUNT 10.1 K/mm3 (4.0-10.0)
[2017-07-20 08:51] LABS: ANION GAP 7 (8-16); CALCIUM 8.4 mg/dL (8.5-10.1); CO2 29 mmol/L (21-32); GLUCOSE,RANDOM 76 mg/dL (74-106)
[2017-07-20] MEDS: PANTOPRAZOLE 40 MG TABLET (FP) PO SCH ×2 (09:14→22:08)
[2017-07-20] MEDS: PHYTONADIONE 10 MG/1 ML AMP IM SCH (09:14)
[2017-07-20] MEDS: predniSONE 20 MG TABLET (UD) PO SCH (09:14)
[2017-07-20] MEDS: hydrALAZINE HCL 50 MG TABLET (FP) PO SCH ×2 (09:14→22:08)
[2017-07-20] MEDS: ESCITALOPRAM OXALATE 20 MG TABLET (FP) PO SCH (09:14)
[2017-07-20] MEDS: VALSARTAN 160 MG TABLET (UD) PO SCH (09:14)
[2017-07-20] MEDS: FUROSEMIDE 20 MG TABLET (FP) PO SCH (09:14)
[2017-07-20] MEDS: CYANOCOBALAMIN 1,000 MCG TABLET (FP) PO SCH (09:14)
[2017-07-20] MEDS: ARFORMOTEROL TARTRATE 15 MCG/2 ML VIAL NEB SCH ×2 (09:45→22:03)
--- NOTE | 2017-07-20 10:06 | PN ---
Progress Note (short form) - Note Progress Note: PULMONARY s/p colonoscopy showing polyps s/p polypectomies. Denies shortness of breath, cough or wheezing. Last Vital Signs Temp Pulse Resp BP Pulse Ox 97.5 F L 70 20 148/70 98 07/20/17 06:52 07/20/17 09:45 07/20/17 06:52 07/20/17 06:52 07/20/17 09:45 Gen: NAD in chair Heart: RRR Lung: scattered rales Abd: soft, nontender Ext: no edema CBC, BMP 07/20/17 06:50 07/20/17 06:50 Active Medications Acetaminophen (Tylenol -) 650 mg PO Q4H PRN PRN Reason: FEVER OR PAIN Last Admin: 07/14/17 14:44 Dose: 650 mg Arformoterol Tartrate (Brovana (Restricted To Pulmonology/Resp) -) 1 amp NEB BID [facility] Last Admin: 07/20/17 09:45 Dose: 1 amp Atorvastatin Calcium (Lipitor -) 40 mg PO HS [facility] Last Admin: 07/19/17 21:24 Dose: 40 mg Cyanocobalamin (Vitamin B12 -) 1,000 mcg PO DAILY [facility] Last Admin: 07/20/17 09:14 Dose: 1,000 mcg Escitalopram Oxalate (Lexapro -) 20 mg PO DAILY [facility] Last Admin: 07/20/17 09:14 Dose: 20 mg Furosemide (Lasix -) 20 mg PO DAILY [facility] Last Admin: 07/20/17 09:14 Dose: 20 mg Guaifenesin (Robitussin -) 10 ml PO Q4H PRN PRN Reason: COUGH Last Admin: 07/11/17 10:38 Dose: 10 ml Hydralazine HCl (Apresoline -) 50 mg PO BID [facility] Last Admin: 07/20/17 09:14 Dose: 50 mg Levothyroxine Sodium (Synthroid -) 100 mcg PO DAILY@0700 [facility] Last Admin: 07/20/17 06:08 Dose: 100 mcg Melatonin (Melatonin) 10 mg PO HS [facility] Last Admin: 07/19/17 21:24 Dose: 10 mg Non-Formulary Medication (Fluticasone Furoate [Flonase Sensimist]) 9.9 ml NS DAILY [facility] Ondansetron HCl (Zofran -) 4 mg PO Q6H PRN Pantoprazole Sodium (Protonix -) 40 mg PO BID [facility] Last Admin: 07/20/17 09:14 Dose: 40 mg Phytonadione (Aqua Mephyton Injection -) 10 mg IM DAILY [facility] Stop: 07/20/17 14:59 Last Admin: 07/20/17 09:14 Dose: 10 mg Polyethylene Glycol (Miralax (For Daily Use) -) 17 gm PO DAILY [facility] Prednisone (Deltasone -) 40 mg PO DAILY [facility] Last Admin: 07/20/17 09:14 Dose: 40 mg Tiotropium [place] (Spiriva -) 1 puff IH DAILY [facility] Last Admin: 07/19/17 09:50 Dose: 1 puff Valsartan (Diovan -) 320 mg PO DAILY [facility] Last Admin: 07/20/17 09:14 Dose: 320 mg A/P Pneumonia/UTI treated COPD LV Diastolic Dysfunction CAD Acute Kidney Injury resolving - completed antibiotics - inhaled bronchodilators - O2 to keep SpO2 >90% - DVT prophylaxis - d/c planning
[2017-07-20] MEDS ORDERED: predniSONE 20 MG TABLET (UD) PO SCH (10:26)
[2017-07-20] MEDS: TIOTROPIUM BROMIDE 18 MCG/INH (DEVICE W/ 5 CAPSULES) IH SCH (10:33)
[2017-07-20] MEDS: POLYETHYLENE GLYCOL 3350 119 GM BTL PO SCH (10:33)
--- NOTE | 2017-07-20 10:57 | PATH ---
Surgical Pathology Report Patient Name: AMBER BENNETT Med. Rec. #: [id number] /Age/Gender: 1935 (Age: 81) / F Account: [id number] Location: [facility] Taken: 07/19/2017 Received: 07/19/2017 Reported: 07/20/2017 Physicians: Keila Epperson M.D. Specimen(s) Received A: BX COLON PROXIMAL TRANSVERSE POLYPS B: BX COLON DESCENDING POLYP Clinical History Anemia History of colon adenoma, family history of colon cancer Diverticulosis, polyp Final Diagnosis A. COLON, PROXIMAL TRANSVERSE, BIOPSY: TUBULAR ADENOMA. B. COLON, DESCENDING, BIOPSY: COLONIC MUCOSA WITH NONSPECIFIC FOCAL ACTIVE COLITIS. NO ARCHITECTURAL DISTORTION, GRANULOMAS, OR DYSPLASIA IDENTIFIED. Comment: The injury pattern present in Specimen B is non-specific, and can be seen in a variety of disease conditions including acute self-limiting colitis and idiopathic inflammatory bowel disease. Recommend correlation with clinical findings and follow up as clinically indicated. Electronically Signed Andrew Kendall M.D. Gross Description A. Received in formalin, labeled "biopsy proximal transverse colon polyps" are 2 nick, irregular portions of soft tissue averaging 0.3 cm. in greatest dimension. The specimens are submitted in toto in one cassette. B. Received in formalin, labeled "biopsy descending colon polyp" is a nick, irregular portion of soft tissue measuring 0.4 cm. in greatest dimension. The specimen is submitted in toto in one cassette. /07/19/2017 saudi07/19/2017
[2017-07-20] MEDS ORDERED: POTASSIUM CHLORIDE TABS 20 MEQ TABLET.ER (FP) PO ONE ×2 (13:00→17:30)
--- NOTE | 2017-07-20 13:14 | PN ---
Progress Note (short form) - Note Progress Note: CC: sob s: no cp palps dizzy; mild sob/cough persists but continues to improve, nearly resolved. endoscopy yesterday o: Current Medications Acetaminophen (Tylenol -) 650 mg PO Q4H PRN PRN Reason: FEVER OR PAIN Last Admin: 07/14/17 14:44 Dose: 650 mg Arformoterol Tartrate (Brovana (Restricted To Pulmonology/Resp) -) 1 amp NEB BID [facility] BEDS AT [facility] Last Admin: 07/20/17 09:45 Dose: 1 amp Atorvastatin Calcium (Lipitor -) 40 mg PO HS [facility] 234 BEDS AT [facility] Last Admin: 07/19/17 21:24 Dose: 40 mg Cyanocobalamin (Vitamin B12 -) 1,000 mcg PO DAILY [facility] 234 BEDS AT [facility] Last Admin: 07/20/17 09:14 Dose: 1,000 mcg Escitalopram Oxalate (Lexapro -) 20 mg PO DAILY [facility] 234 BEDS AT [facility] Last Admin: 07/20/17 09:14 Dose: 20 mg Furosemide (Lasix -) 20 mg PO DAILY [facility] 234 B[facility]S AT [facility] Last Admin: 07/20/17 09:14 Dose: 20 mg Guaifenesin (Robitussin -) 10 ml PO Q4H PRN PRN Reason: COUGH Last Admin: 07/11/17 10:38 Dose: 10 ml Hydralazine HCl (Apresoline -) 50 mg PO BID [facility] 234 B[facility]S AT [facility] Last Admin: 07/20/17 09:14 Dose: 50 mg Levothyroxine Sodium (Synthroid -) 100 mcg PO DAILY@0700 [facility]S [facility]CLUDE 234 BEDS AT [facility] Last Admin: 07/20/17 06:08 Dose: 100 mcg Melatonin (Melatonin) 10 mg PO [facility] Last Admin: 07/19/17 21:24 Dose: 10 mg Non-Formulary Medication (Fluticasone Furoate [Flonase Sensimist]) 9.9 ml NS DAILY [facility] 234 BEDS AT [facility] Pantoprazole Sodium (Protonix -) 40 mg PO BID [facility] 234 BEDS AT [facility] Last Admin: 07/20/17 09:14 Dose: 40 mg Polyethylene Glycol (Miralax (For Daily Use) -) 17 gm PO DAILY [facility] 234 BEDS AT [facility] Last Admin: 07/20/17 10:33 Dose: Not Given Prednisone (Deltasone -) 30 mg PO DAILY [facility] 234 BEDS AT [facility] Tiotropium [place] (Spiriva -) 1 puff IH DAILY [facility] 234 BEDS AT [facility] Last Admin: 07/20/17 10:33 Dose: 1 puff Valsartan (Diovan -) 320 mg PO DAILY [facility] 234 B[facility]S AT [facility] Last Admin: 07/20/17 09:14 Dose: 320 mg Vital Signs - 24 hr 07/19/17 07/19/17 07/19/17 15:56 17:45 21:00 Temperature 97.3 F L 98.4 F Pulse Rate 79 75 Respiratory 18 20 Rate Blood Pressure 131/46 114/58 O2 Sat by Pulse 98 Oximetry (%) 07/19/17 07/20/17 07/20/17 22:00 06:52 09:45 Temperature 98.0 F 97.5 F L Pulse Rate 76 70 70 Respiratory 19 20 Rate Blood Pressure 133/61 148/70 O2 Sat by Pulse 98 Oximetry (%) Intake & Output 07/18/17 07/19/17 07/20/17 07/21/17 07:59 07:59 07:59 07:59 Intake Total 991 959 4645 350 Balance 426 290 6492 350 Weight 158 lb 2 oz nad no jvd rrr s1s2 no mrg trace wheezes. nl effort aaox3 no le e/c/c abd nt nd pos bs no jaundice diaphoresis CBC, BMP 07/20/17 06:50 07/20/17 06:50 ekg: possible ectopic atrial rhythm with short pr interval and pac's. borderline prolonged qt. no acute ischemic changes. echo 03/2017: nl lv/rv, mild ar/mr mibi 03/2017: nl mpi, nl lvef A/P 81 f hx htn, hld, hypothyroid, cad s/p pci 2007 (lad), MR s/p repair, le edema/ venous insuff, chronic URIs from chronic laryngeal reflux and recent admit for pna last week p/w worsening sob thought to have persistent pna with superimposed uti. sob, pna, copd: - initially did not appear to be 2/2 chf, IVF given when pt hypotensive. BP now improved. - got abx for pna, uti - mgm't of possible contribution from copd per pmd. - cont po lasix h/o acute diastolic chf likely secondary to hypertensive emergency (04/19): -recent echo and mibi unremarkable -cont po lasix. lyte repletion prn chronic LE edema/venous insuff: -stable currently htn: -Initially bp's held for hypotension, now being added back on. - of note, bystolic stopped on prior admit due to 2/2 bradycardia, also with h/ o worsened edema with ccb - 07/12: bp still suboptimal on valsartan and low dose hydralazine. Will increase hydralazine to 50 bid. - 07/13-: bp improved, con't current regimen, con't to monitor for need to uptitrate cad s/p remote pci: -no recent angina or ischemia (03/20). Echo 03/2017 without significant abnormality. -trop currently normal, no ekg changes -cont home regimen statin, arb - will hold ASA in light of worsening anemia. On IV iron transfusions per heme. anemia: -egd done, no source of anemia seen, now s/p colonoscopy 07/19 -no cardiac contraindications to planned endoscopies. - holding asa for anemia as above. Can resume at discretion of heme/gi/pmd
--- NOTE | 2017-07-20 13:15 | DS ---
Physical Examination Vital Signs: Vital Signs Temperature 97.5 F L 07/20/17 06:52 Pulse Rate 70 07/20/17 09:45 Respiratory Rate 20 07/20/17 06:52 Blood Pressure 148/70 07/20/17 06:52 O2 Sat by Pulse Oximetry (%) 98 07/20/17 09:45 Constitutional: Yes: Calm Eyes: Yes: Conjunctiva Clear Neck: Yes: Supple Cardiovascular: Yes: Regular Rate and Rhythm Respiratory: Yes: Regular. No: Rales, Wheezes Gastrointestinal: Yes: Soft. No: Tenderness Renal/: No: Gallegos Present Edema: No Neurological: Yes: Alert, Oriented Labs: CBC, BMP 07/20/17 06:50 07/20/17 06:50 Discharge Summary Reason For Visit: PNEUMONIA Current Active Problems Acute hypoxemic respiratory failure (Acute) Anxiety about health (Acute) COPD (chronic obstructive pulmonary disease) (Acute) Congestive cardiac failure (Acute) HCAP (healthcare-associated pneumonia) (Acute) Hypertensive emergency (Acute) Hypertensive urgency (Acute) Hypothyroid (Acute) Hypoxia (Acute) Iron (Fe) deficiency anemia (Acute) Pneumonia (Acute) Sepsis (Acute) Shortness of breath (Acute) UTI (urinary tract infection) (Acute) Acute Gastritis Procedures: Principal: IV steroids ,antibiotics and aerosol Rx Other Procedures: EGD and Colonoscopy and Pulmonary, Cardiology and GI MD's consultations Hospital Course: Still coughing and SOB and Fatigue for days complicated by severe Fe def Anemia which did not respond to IV Iron Rx. Condition: Stable - Instructions Diet, Activity, Other Instructions: Limit salt in your diet. Blood tests: CBC and basic profile twice a week to check renal lab and hemoglobin. GI MD wishes to hold anticoagulants like heparin for 5 days. Please resume aspirin 81mg by this . Prednisone 30mg for 3 days then 20mg a day for 3 days then 10mg till she sees the MD as outpatient. We will have CAT Scan of liver done after I see you in the office Referrals: Darlel Claire MD [Primary Care Provider] - Matti Mercedes MD [Staff Physician] - Momo Goodrich MD [Staff Physician] - Disposition: CARE HOME FACILITY - Home Medications Comprehensive Discharge Medication List: Ambulatory Orders Atorvastatin Ca [Lipitor] 40 mg PO HS 04/19/17 Cyanocobalamin (Vitamin B-12) [Vitamin B-12] 1,000 mcg PO DAILY 04/19/17 Escitalopram Oxalate [Lexapro -] 20 mg PO DAILY 04/19/17 Fluticasone Furoate [Flonase Sensimist] 9.9 ml NS DAILY 04/19/17 Levothyroxine [Synthroid -] 100 mcg PO DAILY 04/19/17 Mag Carb/Al Hydrox/Alginic AC [Gaviscon Liquid] 15 - 30 ml PO Q6H 04/19/17 Mometasone/Formoterol [Dulera 100 Mcg/5 Mcg Inhaler] 2 inh IH BID 04/19/17 Valsartan [Diovan] 320 mg PO DAILY #60 tablet 04/28/17 Acetaminophen [Tylenol .Regular Strength -] 650 mg PO Q4H PRN #0 tablet Furosemide [Lasix -] 20 mg PO DAILY tablet 06/28/17 Melatonin 10 mg PO HS tab 06/28/17 Polyethylene Glycol 3350 [Miralax 119 gm Btl -] 17 gm PO BID bottle 06/28/17 Arformoterol Tartrate [Brovana -] 1 amp NEB BID amp 07/20/17 Guaifenesin [Robitussin -] 10 ml PO Q4H PRN #240 ml 07/20/17 Hydralazine HCl [Apresoline -] 50 mg PO BID tablet 07/20/17 Pantoprazole Sodium [Protonix -] 40 mg PO BID tab 07/20/17 Prednisone [Deltasone -] 30 mg PO DAILY tablet 07/20/17 Tiotropium [place] [Spiriva] 1 puff IH DAILY inh 07/20/17
[2017-07-20] MEDS ORDERED: PT OWN MED DRAWER 7, Y5N ONE (20:48)
[2017-07-20] MEDS: MELATONIN 5 MG TABLETS PO SCH (22:08)
[2017-07-20] MEDS: ATORVASTATIN CA 40 MG TABLET (FP) PO SCH (22:08)
[2017-07-21 06:20] VITALS: TEMP 98.1
[2017-07-21] MEDS: LEVOTHYROXINE NA 100 MCG TABLET (FP) PO SCH (06:22)
--- NOTE | 2017-07-21 09:02 | PN ---
Progress Note (short form) - Note Progress Note: Patient seen and examined today. No changes in Vital signs or examination For Transfer to SNF today. Discharge H and P and orders have been documented. Problem List - Problems (1) COPD (chronic obstructive pulmonary disease) Code(s): J44.9 - CHRONIC OBSTRUCTIVE PULMONARY DISEASE, UNSPECIFIED Qualifiers : COPD type: COPD with acute exacerbation Qualified Code(s): J44.1 - Chronic obstructive pulmonary disease with (acute) exacerbation; J44.1 - Chronic obstructive pulmonary disease with (acute) exacerbation; J44.1 - Chronic obstructive pulmonary disease with (acute) exacerbation; J44.1 - Chronic obstructive pulmonary disease with (acute) exacerbation (2) Anxiety about health Code(s): F41.8 - OTHER SPECIFIED ANXIETY DISORDERS (3) Congestive cardiac failure Code(s): I50.9 - HEART FAILURE, UNSPECIFIED Qualifiers: Congestive heart failure type: diastolic Congestive heart failure chronicity: chronic Qualified Code(s): I50.32 - Chronic diastolic ( congestive) heart failure; I50.32 - Chronic diastolic (congestive) heart failure ; I50.32 - Chronic diastolic (congestive) heart failure; I50.32 - Chronic diastolic (congestive) heart failure (4) Pneumonia Code(s): J18.9 - PNEUMONIA, UNSPECIFIED ORGANISM Qualifiers: Pneumonia type: due to unspecified organism Laterality: unspecified laterality Lung location: unspecified part of lung Qualified Code(s) : J18.9 - Pneumonia, unspecified organism; J18.9 - Pneumonia, unspecified organism (5) UTI (urinary tract infection) Code(s): N39.0 - URINARY TRACT INFECTION, SITE NOT SPECIFIED (6) Iron (Fe) deficiency anemia Code(s): D50.9 - IRON DEFICIENCY ANEMIA, UNSPECIFIED
[2017-07-21] MEDS ORDERED: PT OWN MED DRAWER 7, Y5N ONE (09:21)
[2017-07-21] MEDS: FUROSEMIDE 20 MG TABLET (FP) PO SCH (09:34)
[2017-07-21] MEDS: hydrALAZINE HCL 50 MG TABLET (FP) PO SCH (09:34)
[2017-07-21] MEDS: CYANOCOBALAMIN 1,000 MCG TABLET (FP) PO SCH (09:34)
[2017-07-21] MEDS: PANTOPRAZOLE 40 MG TABLET (FP) PO SCH (09:34)
[2017-07-21] MEDS: VALSARTAN 160 MG TABLET (UD) PO SCH (09:34)
[2017-07-21] MEDS: ESCITALOPRAM OXALATE 20 MG TABLET (FP) PO SCH (09:35)
[2017-07-21] MEDS: TIOTROPIUM BROMIDE 18 MCG/INH (DEVICE W/ 5 CAPSULES) IH SCH (09:36)
[2017-07-21] MEDS: POLYETHYLENE GLYCOL 3350 119 GM BTL PO SCH (09:57)
[2017-07-21] MEDS ORDERED: FERROUS SO4 325 MG TABLET (FP) PO SCH (10:00)
[2017-07-21] MEDS ORDERED: ASCORBIC ACID 500 MG TABLET (FP) PO SCH (10:00)
[2017-07-21] MEDS: ARFORMOTEROL TARTRATE 15 MCG/2 ML VIAL NEB SCH (10:11)
[2017-07-21 10:29] VITALS: BP 150/72; PULSE 84
== END 2017-07-21 11:04 | DRG 871 ==
LOC: JER 13:12 → JERBED 15:15 → J4W 16:41 → J8W 07-08 15:02
PROVIDERS: ADMIT Internal Medicine; ATTEND Internal Medicine
PROC: 0DJ08ZZ Inspection of Upper Intestinal Tract, Via Natural or Artificial Opening Endoscopic (ICD-10-PCS; principal; 2017-07-16 11:30)
PROC: 0DBL8ZX Excision of Transverse Colon, Via Natural or Artificial Opening Endoscopic, Diagnostic (ICD-10-PCS; 2017-07-19)
PROC: 0D5M8ZZ Destruction of Descending Colon, Via Natural or Artificial Opening Endoscopic (ICD-10-PCS; 2017-07-19)
DX: A41.9 Sepsis, unspecified organism (principal); J18.9 Pneumonia, unspecified organism; J96.01 Acute respiratory failure with hypoxia; I50.33 Acute on chronic diastolic (congestive) heart failure; N39.0 Urinary tract infection, site not specified; J44.1 Chronic obstructive pulmonary disease with (acute) exacerbation; N17.9 Acute kidney failure, unspecified; F41.8 Other specified anxiety disorders; D50.9 Iron deficiency anemia, unspecified; E03.9 Hypothyroidism, unspecified; K44.9 Diaphragmatic hernia without obstruction or gangrene; K29.70 Gastritis, unspecified, without bleeding; K57.90 Diverticulosis of intestine, part unspecified, without perforation or abscess without bleeding; I25.10 Atherosclerotic heart disease of native coronary artery without angina pectoris; Z98.61 Coronary angioplasty status; I11.0 Hypertensive heart disease with heart failure; K21.9 Gastro-esophageal reflux disease without esophagitis; Z16.12 Extended spectrum beta lactamase (ESBL) resistance; D72.829 Elevated white blood cell count, unspecified; E78.5 Hyperlipidemia, unspecified
CPT/HCPCS: 36415; 71010-TC; 71020-TC; 74230-TC; 76775-TC; 80048; 80053; 81003; 81015; 82272; 82378; 82607; 82728; 82746; 82784; 82803; 83021; 83540; 83550; 83605; 83615; 83735; 83880; 84100; 84155; 84165; 84439; 84443; 84481; 84484; 85025; 85044; 85610; 85651; 85660; 85730; 86301; 86334; 86850; 86900; 86901; 87040; 87070; 87086; 87186; 87205; 87804; 87899; 88305-TC; 90688; 92611-GN; 93005; 93010; 94640; 97116-GP; 97161-GP; 99284-25; G0480; J1644; J1756

== ENCOUNTER 2018-01-02 20:20 | Inpatient (IN) | payer OTHER, BC ==
[2018-01-02 20:34] VITALS: BMI 32.3
--- NOTE | 2018-01-02 20:51 | PDOC ---
History of Present Illness - General History Source: Patient Exam Limitations: No Limitations - History of Present Illness Initial Comments: 01/02/18 21:59 The patient is a 82 year old female with a significant PMH of CAD, CHF(on Lasix) , COPD,HTN,chronic lung disease,( s/p stents X 2), who presents to the emergency department with intermittent Dyspnea for 2 days. Patient states that she was eating dinner earlier tonight when she had a sudden onset of shortness of breath. The patient reports progressively worsening shortness of breath that is worsened on exertion for the past 2 days. Patient also states that she noticed bilateral edema in her ankles that started one day ago. Patient states she took a nebulizer treatment at home earlier today with slight relief The patient denies chest pain, headache and dizziness. Denies fever, chills, nausea, vomit, diarrhea and constipation. Denies dysuria, frequency, urgency and hematuria. Denies cough, wheezing Allergies: Codeine, meperidine HCL PCP: Darell Claire Stave Saw Operator: Eren Davidson <Elidia Ornelas - Last Filed: 01/02/18 21:59> <Penelope Lozoya - Last Filed: 01/03/18 16:32> - General Chief Complaint: Shortness of Breath Stated Complaint: SOB Time Seen by Provider: 01/02/18 20:36 Past History <Elidia Ornelas - Last Filed: 01/02/18 21:59> - Past Medical History Anemia: No Asthma: No Cancer: No Cardiac Disorders: Yes (CARDIAC STENTS) CVA: No COPD: Yes CHF: Yes Dementia: No Diabetes: No GI Disorders: Yes (ACID REFLUX) HTN: Yes Hypercholesterolemia: Yes Seizures: No Thyroid Disease: Yes (thyroidectomy) - Surgical History Cardiac Surgery: Yes (2 CARDIAC [id number]) Cholecystectomy: Yes Orthopedic Surgery: Yes (RIGHT KNEE ARTHROSCOPY) - Suicide/Smoking/Psychosocial Hx Smoking History: Never smoked Have you smoked in the past 12 months: No Number of Cigarettes Smoked Daily: 0 Hx Alcohol Use: No Drug/Substance Use Hx: No Substance Use Type: None Hx Substance Use Treatment: No <Penelope Lozoya - Last Filed: 01/03/18 16:32> - Past Medical History Allergies/Adverse Reactions: Allergies Allergy/AdvReac Type Severity Reaction Status Date / Time codeine [Codeine] Allergy Verified 01/02/18 20:31 meperidine HCl [From Demerol] Allergy Verified 01/02/18 20:31 Home Medications: Ambulatory Orders Amlodipine Besylate 10 mg PO DAILY 01/02/18 Aspirin 81 mg PO DAILY 01/02/18 Atorvastatin Ca [Lipitor] 40 mg PO HS 01/02/18 Cyanocobalamin [Vitamin B12 -] 1,000 mcg PO DAILY 01/02/18 Ergocalciferol (Vitamin D2) [Vitamin D2] 2,000 unit PO DAILY 01/02/18 Escitalopram Oxalate [Lexapro -] 20 mg PO DAILY 01/02/18 Fluticasone Furoate [Flonase Sensimist] 9.9 ml NS BID 01/02/18 Furosemide 20 mg PO DAILY 01/02/18 Hydralazine HCl 50 mg PO BID 01/02/18 Levothyroxine Sodium [Levoxyl] 137 mcg PO DAILY 01/02/18 Pantoprazole Sodium 40 mg PO BID 01/02/18 Polyethylene Glycol 3350 [Miralax (For Daily Use) -] 17 gm PO DAILY 01/02/18 Potassium Chloride [Klor-Con 8] 8 meq PO DAILY 01/02/18 Valsartan 320 mg PO BID 01/02/18 predniSONE [Deltasone -] 5 mg PO DAILY 01/02/18 Review of Systems - Review of Systems Able to Perform ROS?: Yes Comments:: 01/02/18 21:59 CONSTITUTIONAL: Absent: fever, chills, diaphoresis, generalized weakness, malaise, loss of appetite HEENT: Absent: rhinorrhea, nasal congestion, throat pain, throat swelling, difficulty swallowing, mouth swelling, ear pain, eye pain, visual Changes CARDIOVASCULAR: Absent: chest pain, syncope, palpitations, irregular heart rate, lightheadedness , peripheral edema RESPIRATORY: +shortness of breath, +dyspnea with exertion Absent: cough, orthopnea, wheezing, stridor, hemoptysis GASTROINTESTINAL: Absent: abdominal pain, abdominal distension, nausea, vomiting, diarrhea, constipation, melena, hematochezia GENITOURINARY: Absent: dysuria, frequency, urgency, hesitancy, hematuria, flank pain, genital pain MUSCULOSKELETAL: Absent: myalgia, arthralgia, joint swelling SKIN: Absent: rash, itching, pallor HEMATOLOGIC/IMMUNOLOGIC: Absent: easy bleeding, easy bruising, lymphadenopathy, frequent infections ENDOCRINE: Absent: unexplained weight gain, unexplained weight loss, heat intolerance, cold intolerance NEUROLOGIC: Absent: headache, focal weakness or paresthesias, dizziness, unsteady gait, seizure, mental status changes, bladder or bowel incontinence PSYCHIATRIC: Absent: anxiety, depression, suicidal or homicidal ideation, hallucinations. All Other Systems: Reviewed and Negative <Elidia Ornelas - Last Filed: 01/02/18 21:59> *Physical Exam - Vital Signs Last Vital Signs Temp Pulse Resp BP Pulse Ox 97.8 F 74 20 138/57 96 01/02/18 20:32 01/02/18 20:32 01/02/18 20:32 01/02/18 20:32 01/02/18 20:32 - Physical Exam Comments: 01/02/18 22:00 GENERAL: Well developed, well nourished. Awake and alert. No acute distress. HEENT: Normocephalic, atraumatic. PERRLA, EOMI. No conjunctival pallor. Sclera are non- icteric. Moist mucous membranes. Oropharynx is clear. NECK: Supple. Full ROM. No JVD. Carotid pulses 2+ and symmetric, without bruits. No thyromegaly. No lymphadenopathy. CARDIOVASCULAR:+Systolic murmur Regular rate and rhythm. No rubs, or gallops. Distal pulses are 2+ and symmetric. PULMONARY: No evidence of respiratory distress. Lungs clear to auscultation bilaterally. No wheezing, rales or rhonchi. ABDOMINAL: Soft. Non-tender. Non-distended. No rebound or guarding. No organomegaly. Normoactive bowel sounds. MUSCULOSKELETAL Normal range of motion at all joints. No bony deformities or tenderness. No CVA tenderness. EXTREMITIES: +bilateral trace pedal edema No cyanosis. No clubbing. No calf tenderness. SKIN: Warm and dry. Normal capillary refill. No rashes. No jaundice. NEUROLOGICAL: Alert, awake, appropriate. Cranial nerves 2-12 intact. No deficits to light touch and temperature in face, upper extremities and lower extremities. No motor deficits in the in face, upper extremities and lower extremities. Normoreflexic in the upper and lower extremities. Normal speech. Toes are down- going bilaterally. Gait is normal without ataxia. PSYCHIATRIC: Cooperative. Good eye contact. Appropriate mood and affect. <Elidia Ornelas - Last Filed: 01/02/18 21:59> - Vital Signs Last Vital Signs Temp Pulse Resp BP Pulse Ox 97.8 F 74 20 138/57 96 01/02/18 20:32 01/02/18 20:32 01/02/18 20:32 01/02/18 20:32 01/02/18 20:32 <Penelope Lozoya - Last Filed: 01/03/18 16:32> ED Treatment Course - LABORATORY CBC & Chemistry Diagram: 01/02/18 20:53 01/02/18 20:53 - ADDITIONAL ORDERS Additional order review: Laboratory Results 01/02/18 20:53 Sodium 143 Potassium 3.5 Chloride 110 H Carbon Dioxide 24 Anion Gap 9 BUN 30 H Creatinine 1.1 H Creat Clearance w eGFR 47.32 Random Glucose 88 Calcium 8.9 Total Bilirubin 0.3 D AST 36 ALT 34 Alkaline Phosphatase 108 Creatine Kinase 187 Troponin I 0.02 B-Natriuretic Peptide 260.94 Total Protein 6.1 L Albumin 3.5 01/02/18 20:53 RBC 4.43 D MCV 78.6 L MCHC 32.1 RDW 17.2 H D MPV 8.6 Neutrophils % 65.9 Lymphocytes % 19.2 Monocytes % 11.6 H Eosinophils % 2.7 D Basophils % 0.6 - Medications Given in the ED: ED Medications Discontinued Medications Generic Name Dose Route Start Last Admin Trade Name Freq PRN Reason Stop Dose Admin Acetaminophen 650 mg 01/02/18 21:50 01/02/18 21:57 Tylenol - PO 01/02/18 21:51 650 mg ONCE ONE Administration <Elidia Ornelas - Last Filed: 01/02/18 21:59> - LABORATORY CBC & Chemistry Diagram: 01/03/18 06:35 01/03/18 06:35 <Penelope Lozoya - Last Filed: 01/03/18 16:32> Medical Decision Making - Medical Decision Making 01/03/18 02:14 82 -year-old woman with history hypertension, hyperlipidemia, coronary artery disease status post PCI 2007, mitral valve, status post repair, lower extremity edema banishes insufficiency. HPI Admits for increasing shortness of breath over the past 2 days. She says she is short of breath at rest. She denies any anterior chest pain Patient has a history of chronic lower leg weakness. Past surgical history cholecystectomy, hysterectomy, PCI EKG is normal sinus rhythm at 66 bpm with no acute ST elevations or acute signs of ischemia Troponin is negative BNP is slightly elevated. -NO infiltrates seen on chest x-ray. Patient does have a history of COPD and CHF. She took an nebulizer treatment prior to arrival IMP Dypsnea /chronic leg weakness/ increasing LE edema 01/03/18 16:31 <Penelope Lozoya - Last Filed: 01/03/18 16:32> *DC/Admit/Observation/Transfer - Attestations Scribe Attestion: 01/02/18 22:00 Documentation prepared by Elidia Ornelas, acting as medical records technician for Penelope Lozoya MD <Elidia Ornelas - Last Filed: 01/02/18 21:59> - Discharge Dispostion Admit: Yes <Penelope Lozoya - Last Filed: 01/03/18 16:32> Diagnosis at time of Disposition: Dyspnea Qualifiers: Dyspnea type: shortness of breath Qualified Code(s): R06.02 - Shortness of breath
[2018-01-02 21:01] LABS: BASO % 0.6 % (0-2.0); EOS % 2.7 % (0-4.5); HEMATOCRIT 34.9 % (32.4-45.2); HEMOGLOBIN 11.2 GM/dL (10.7-15.3); LYMPH % 19.2 % (8-40); MCH 25.2 pg (25.7-33.7); MCHC 32.1 g/dl (32.0-36.0); MEAN CELL VOLUME 78.6 fl (80-96); MEAN PLT VOLUME 8.6 fl (7.5-11.1); MONO % 11.6 % (3.8-10.2); NEUT % 65.9 % (42.8-82.8); PLATELET COUNT 322 K/MM3 (134-434); RBC 4.43 M/mm3 (3.60-5.2); RDW 17.2 % (11.6-15.6); WHITE BLOOD COUNT 11.7 K/mm3 (4.0-10.0)
[2018-01-02 21:13] LABS: INR 0.99 (0.82-1.09); PROTHROMBIN TIME (PATIENT) 11.2 SEC (9.98-11.88)
[2018-01-02 21:38] LABS: ALBUMIN 3.5 g/dl (3.4-5.0); ANION GAP 9 (8-16); BILIRUBIN,TOTAL 0.3 mg/dL (0.2-1.0); BLOOD UREA NITROGEN 30 mg/dL (7-18); CALCIUM 8.9 mg/dL (8.5-10.1); CHLORIDE 110 mmol/L (98-107); CO2 24 mmol/L (21-32); CREATININE 1.1 mg/dL (0.55-1.02); GLUCOSE,RANDOM 88 mg/dL (74-106); POTASSIUM 3.5 mmol/L (3.5-5.1); SGOT/AST 36 U/L (15-37); SGPT/ALT 34 U/L (12-78); SODIUM 143 mmol/L (136-145); TOT PROT 6.1 g/dl (6.4-8.2)
[2018-01-02 21:40] LABS: ALK PHOS 108 U/L (45-117); N-TERMINAL BNP 260.94 pg/ml (5-450)
[2018-01-02] MEDS ORDERED: ACETAMINOPHEN 325 MG TABLET (FP) PO ONE (21:50)
[2018-01-02] MEDS ORDERED: ACETAMINOPHEN 325 MG TABLET (FP) ONE (21:51)
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
[2018-01-03 01:07] LABS: URINE APPEARANCE CLEAR; URINE BILIRUBIN NEGATIVE (<2.0 mg/dL); URINE BLOOD NEGATIVE (NEGATIVE); URINE COLOR LTYELLOW; URINE GLUCOSE (UA) NEGATIVE (NEGATIVE); URINE KETONE NEGATIVE (NEGATIVE); URINE LEUK ESTERASE TRACE (NEGATIVE); URINE NITRITE NEGATIVE (NEGATIVE); URINE PROTEIN NEGATIVE (NEGATIVE); URINE UROBILINOGEN NEGATIVE mg/dL (0.2-1.0)
[2018-01-03 01:15] LABS: EPI CELLS RARE /HPF (FEW); URINE HYALINE CAST 2 /lpf; URINE MUCUS FEW
[2018-01-03 07:15] LABS: BASO % 0.7 % (0-2.0); EOS % 4.6 % (0-4.5); HEMATOCRIT 30.5 % (32.4-45.2); HEMOGLOBIN 9.9 GM/dL (10.7-15.3); LYMPH % 22.5 % (8-40); MCH 25.2 pg (25.7-33.7); MCHC 32.4 g/dl (32.0-36.0); MEAN CELL VOLUME 77.7 fl (80-96); MEAN PLT VOLUME 8.5 fl (7.5-11.1); MONO % 12.2 % (3.8-10.2); PLATELET COUNT 256 K/MM3 (134-434); RBC 3.92 M/mm3 (3.60-5.2); RDW 16.6 % (11.6-15.6); WHITE BLOOD COUNT 9.6 K/mm3 (4.0-10.0)
[2018-01-03] MEDS: LEVOTHYROXINE 112 MCG, LEVOTHYROXINE 25 MCG PO SCH (07:16)
[2018-01-03 08:57] LABS: ANION GAP 9 (8-16); BLOOD UREA NITROGEN 34 mg/dL (7-18); CALCIUM 8.5 mg/dL (8.5-10.1); CHLORIDE 111 mmol/L (98-107); CO2 25 mmol/L (21-32); CREATININE 0.9 mg/dL (0.55-1.02); GLUCOSE,RANDOM 78 mg/dL (74-106); PHOSPHOROUS 3.1 mg/dL (2.5-4.9); POTASSIUM 3.2 mmol/L (3.5-5.1); SODIUM 145 mmol/L (136-145)
--- NOTE | 2018-01-03 09:55 | PN ---
Progress Note (short form) - Note Progress Note: Dr. Shelby to document today.
--- NOTE | 2018-01-03 09:56 | CON.CARD ---
Cardiology Consult (text) - Consultation Consultation Note: cc: herr, leg weakness hpi: 82 f hx htn, hld, hypothyroid, cad s/p pci 2007 (lad), le edema/venous insuff, chronic URIs here with herr, leg weakness. Chronic sxs for pt, felt they were worse past few days so came to ER. No cp, palps, dizzy, loc, pnd, orthopnea. LE edema mild lately. Sees me for cardio. pmh: per hpi psh: cholecystectomy, hysterectomy social: no tob fam: no premature cad ros: per hpi; no fever, nvd, alanis, vision changes, nasal congestion, gib, hematuria, dysuria meds: Home Medications Medication Instructions Recorded Amlodipine Besylate 10 mg PO DAILY 01/02/18 Aspirin 81 mg PO DAILY 01/02/18 Atorvastatin Ca [Lipitor] 40 mg PO HS 01/02/18 Cyanocobalamin [Vitamin B12 -] 1,000 mcg PO DAILY 01/02/18 Ergocalciferol (Vitamin D2) 2,000 unit PO DAILY 01/02/18 [Vitamin D2] Escitalopram Oxalate [Lexapro -] 20 mg PO DAILY 01/02/18 Fluticasone Furoate [Flonase 9.9 ml NS BID 01/02/18 Sensimist] Furosemide 20 mg PO DAILY 01/02/18 Hydralazine HCl 50 mg PO BID 01/02/18 Levothyroxine Sodium [Levoxyl] 137 mcg PO DAILY 01/02/18 Pantoprazole Sodium 40 mg PO BID 01/02/18 Polyethylene Glycol 3350 [Miralax 17 gm PO DAILY 01/02/18 (For Daily Use) -] Potassium Chloride [Klor-Con 8] 8 meq PO DAILY 01/02/18 Valsartan 320 mg PO BID 01/02/18 predniSONE [Deltasone -] 5 mg PO DAILY 01/02/18 pe: Vital Signs Period Temp Pulse Resp BP Sys/Rios Pulse Ox Last 24 Hr 97.4 F-97.8 F 65-74 18-20 131-138/57-74 96-100 nad no jvd rrr s1s2 no mrg cta bl nl eff aaox3 no le e/c/c abd nt nd pos bs no jaundiced diaphoresis +dp/pt, no carotid bruits Laboratory Last Values WBC 9.6 K/mm3 (4.0-10.0) 01/03/18 06:35 RBC 3.92 M/mm3 (3.60-5.2) 01/03/18 06:35 Hgb 9.9 GM/dL (10.7-15.3) L D 01/03/18 06:35 Hct 30.5 % (32.4-45.2) L 01/03/18 06:35 MCV 77.7 fl (80-96) L 01/03/18 06:35 MCH 25.2 pg (25.7-33.7) L 01/03/18 06:35 MCHC 32.4 g/dl (32.0-36.0) 01/03/18 06:35 RDW 16.6 % (11.6-15.6) H 01/03/18 06:35 Plt Count 256 K/MM3 (134-434) D 01/03/18 06:35 MPV 8.5 fl (7.5-11.1) 01/03/18 06:35 Neutrophils % 60.0 % (42.8-82.8) 01/03/18 06:35 Lymphocytes % 22.5 % (8-40) 01/03/18 06:35 Monocytes % 12.2 % (3.8-10.2) H 01/03/18 06:35 Eosinophils % 4.6 % (0-4.5) H 01/03/18 06:35 Basophils % 0.7 % (0-2.0) 01/03/18 06:35 PT with INR 11.20 SEC (9.98-11.88) 01/02/18 20:53 INR 0.99 (0.82-1.09) 01/02/18 20:53 Sodium 145 mmol/L (136-145) 01/03/18 06:35 Potassium 3.2 mmol/L (3.5-5.1) L 01/03/18 06:35 Chloride 111 mmol/L (98-107) H 01/03/18 06:35 Carbon Dioxide 25 mmol/L (21-32) 01/03/18 06:35 Anion Gap 9 (8-16) 01/03/18 06:35 BUN 34 mg/dL (7-18) H 01/03/18 06:35 Creatinine 0.9 mg/dL (0.55-1.02) 01/03/18 06:35 Creat Clearance w eGFR 47.32 (>60) 01/02/18 20:53 Random Glucose 78 mg/dL (74-106) 01/03/18 06:35 Calcium 8.5 mg/dL (8.5-10.1) 01/03/18 06:35 Phosphorus 3.1 mg/dL (2.5-4.9) 01/03/18 06:35 Magnesium 2.0 mg/dL (1.8-2.4) 01/03/18 06:35 Total Bilirubin 0.3 mg/dL (0.2-1.0) D 01/02/18 20:53 AST 36 U/L (15-37) 01/02/18 20:53 ALT 34 U/L (12-78) 01/02/18 20:53 Alkaline Phosphatase 108 U/L (45-117) 01/02/18 20:53 Creatine Kinase 187 IU/L (26-192) 01/02/18 20:53 Creatine Kinase Index 1.2 % (0.0-5.0) 01/02/18 20:53 CK-MB (CK-2) 2.351 ng/mL (0.5-3.6) 01/02/18 20:53 Troponin I 0.03 ng/ml (0.00-0.05) 01/03/18 02:30 B-Natriuretic Peptide 260.94 pg/ml (5-450) 01/02/18 20:53 Total Protein 6.1 g/dl (6.4-8.2) L 01/02/18 20:53 Albumin 3.5 g/dl (3.4-5.0) 01/02/18 20:53 Urine Color Ltyellow 01/03/18 00:50 Urine Appearance Clear 01/03/18 00:50 Urine pH 5.0 (5.0-8.0) 01/03/18 00:50 Ur Specific [place] 1.019 (1.001-1.035) 01/03/18 00:50 Urine Protein Negative (NEGATIVE) 01/03/18 00:50 Urine Glucose (UA) Negative (NEGATIVE) 01/03/18 00:50 Urine Ketones Negative (NEGATIVE) 01/03/18 00:50 Urine Blood Negative (NEGATIVE) 01/03/18 00:50 Urine Nitrite Negative (NEGATIVE) 01/03/18 00:50 Urine Bilirubin Negative (<2.0 mg/dL) 01/03/18 00:50 Urine Urobilinogen Negative mg/dL (0.2-1.0) 01/03/18 00:50 Ur Leukocyte Esterase Trace (NEGATIVE) 01/03/18 00:50 Urine WBC (Auto) 6 /hpf (3-5) 01/03/18 00:50 Urine RBC (Auto) <1 /hpf (0-3) 01/03/18 00:50 Ur Epithelial Cells Rare /HPF (FEW) 01/03/18 00:50 Hyaline Casts 2 /lpf 01/03/18 00:50 Urine Mucus Few 01/03/18 00:50 ecg: sr, nl intervals, no ischemic changes tele: sr echo 03/2017: nl lv/rv, mild ar/mr mibi 03/2017: nl mpi, nl lvef cxr: clear lungs A/P 82 f hx htn, hld, hypothyroid, cad s/p pci 2007 (lad), le edema/venous insuff, chronic URIs here with herr, leg weakness. sob, leg weakness: -chronic issues for pt -evaluated recently from cardiac standpoint with left and right heart cath (2017). cath showed no obstructive cad and rhc showed only mildly elevated pulm pressure/wedge. -currently bnp low, no signs chf on exam, cxr clear -no signs acs -would continue current cardiac meds -consider PT. pt also [facility], cont to f/u. chronic diastolic chf: -as above -recent echo, mibi, lhc/rhc, unremarkable -cont po lasix chronic LE edema/venous insuff: -stable currently htn: -cont home meds cad s/p remote pci: -stable, no signs acs -cont home regimen statin, arb, asa
[2018-01-03] MEDS ORDERED: LEVOTHYROXINE SODIUM 137 MCG PO SCH (10:00)
[2018-01-03] MEDS: ASPIRIN 81 MG CHEWABLE TABLETS PO SCH (10:46)
[2018-01-03] MEDS: predniSONE 5 MG TABLET (UD) PO SCH (10:46)
[2018-01-03] MEDS: hydrALAZINE HCL 50 MG TABLET (FP) PO SCH ×2 (10:46→23:36)
[2018-01-03] MEDS: FLUTICASONE PROP 0.05% 16 GM NASAL SPRAY NS SCH ×2 (10:47→23:36)
[2018-01-03] MEDS: VALSARTAN 160 MG TABLET (UD) PO SCH ×2 (10:47→23:36)
[2018-01-03] MEDS: CYANOCOBALAMIN 1,000 MCG TABLET (FP) PO SCH (10:48)
[2018-01-03] MEDS: FUROSEMIDE 20 MG TABLET (FP) PO SCH (10:48)
[2018-01-03] MEDS: POTASSIUM CHLORIDE TABS 10 MEQ TABLET.ER (FP) PO SCH (10:48)
[2018-01-03] MEDS: ESCITALOPRAM OXALATE 20 MG TABLET (FP) PO SCH (10:48)
[2018-01-03] MEDS: PANTOPRAZOLE 40 MG TABLET (FP) PO SCH ×2 (10:48→23:37)
[2018-01-03] MEDS: CHOLECALCIFEROL (VITAMIN D3) 1,000 UNIT TABLET (FP) PO SCH (10:48)
[2018-01-03] MEDS ORDERED: ACETAMINOPHEN 325 MG TABLET (FP) PO PRN (11:04)
--- NOTE | 2018-01-03 11:04 | PN ---
Progress Note, Physician Chief Complaint: Ms Dorantes says she is feeling a little better today, still with shortness of breath but improved. No cp or n/v. Complains of leg weakness but says this is chronic and unchanged. - Current Medication List Current Medications: Active Medications Aspirin (Asa -) 81 mg PO DAILY [facility] Last Admin: 01/03/18 10:46 Dose: 81 mg Atorvastatin Calcium (Lipitor -) 40 mg PO [facility] Cholecalciferol (Vitamin D3 -) 2,000 unit PO DAILY [facility] Last Admin: 01/03/18 10:48 Dose: 2,000 unit Cyanocobalamin (Vitamin B12 -) 1,000 mcg PO DAILY [facility] Last Admin: 01/03/18 10:48 Dose: 1,000 mcg Escitalopram Oxalate (Lexapro -) 20 mg PO DAILY [facility] Last Admin: 01/03/18 10:48 Dose: 20 mg Fluticasone Propionate (Flonase -) 1 spray NS BID [facility] Last Admin: 01/03/18 10:47 Dose: Not Given Furosemide (Lasix -) 20 mg PO DAILY [facility] Last Admin: 01/03/18 10:48 Dose: 20 mg Hydralazine HCl (Apresoline -) 50 mg PO BID [facility] Last Admin: 01/03/18 10:46 Dose: 50 mg Levothyroxine Sodium 112 mcg/ (Levothyroxine Sodium 25 mcg) 137 mcg PO DAILY@ 0700 [facility] Last Admin: 01/03/18 07:16 Dose: 137 mcg Pantoprazole Sodium (Protonix -) 40 mg PO BID [facility] Last Admin: 01/03/18 10:48 Dose: 40 mg Potassium Chloride (K-Dur -) 10 meq PO DAILY [facility] Last Admin: 01/03/18 10:48 Dose: 10 meq Prednisone (Deltasone -) 5 mg PO DAILY [facility] Last Admin: 01/03/18 10:46 Dose: 5 mg Valsartan (Diovan -) 320 mg PO BID [facility] Last Admin: 01/03/18 10:47 Dose: 320 mg - Objective Vital Signs: Vital Signs Temperature 36.3 C L 01/03/18 07:07 Pulse Rate 65 01/03/18 07:07 Respiratory Rate 18 01/03/18 07:07 Blood Pressure 131/74 01/03/18 07:07 O2 Sat by Pulse Oximetry (%) 97 01/03/18 07:07 Constitutional: Yes: No Distress, Calm, Obese Cardiovascular: Yes: Regular Rate and Rhythm. No: Gallop, Murmur, Rub Respiratory: Yes: Regular, CTA Bilaterally, On Nasal O2. No: Rales, Rhonchi, Wheezes Gastrointestinal: Yes: Normal Bowel Sounds, Soft. No: Distention, Tenderness Extremities: Yes: WNL Edema: No Labs: CBC, BMP 01/03/18 06:35 01/03/18 06:35 INR, PTT INR 0.99 (0.82-1.09) 01/02/18 20:53 Problem List - Problems (1) COPD (chronic obstructive pulmonary disease) Assessment/Plan: -symptoms most consistent with COPD exacerbation -will add duonebs -continue low dose prednisone -PT consulted to ambulate and evaluate if short of breath -will do pre and post tomorrow -pulmonary consulted Code(s): J44.9 - CHRONIC OBSTRUCTIVE PULMONARY DISEASE, UNSPECIFIED Qualifiers: (2) Congestive cardiac failure Assessment/Plan: -appreciate cardiology assistance, note reviewed -continue oral lasix Code(s): I50.9 - HEART FAILURE, UNSPECIFIED Qualifiers: Qualified Code(s): I50.32 - Chronic diastolic (congestive) heart failure (3) Dyspnea Assessment/Plan: -secondary to COPD -as above Code(s): R06.00 - DYSPNEA, UNSPECIFIED Qualifiers: Dyspnea type: shortness of breath Qualified Code(s): R06.02 - Shortness of breath; R06.00 - Dyspnea, unspecified; R06.01 - Orthopnea (4) Hyperlipidemia Assessment/Plan: -continue lipitor Code(s): E78.5 - HYPERLIPIDEMIA, UNSPECIFIED (5) Hypertension Assessment/Plan: -controlled -continue home regimen Code(s): I10 - ESSENTIAL (PRIMARY) HYPERTENSION Qualifiers: Hypertension type: essential hypertension Qualified Code(s): I10 - Essential (primary) hypertension (6) Hypothyroid Assessment/Plan: -continue levothyroxine Code(s): E03.9 - HYPOTHYROIDISM, UNSPECIFIED Qualifiers: Assessment/Plan Dispo -possible discharge tomorrow
--- NOTE | 2018-01-03 11:32 | EKG ---
Test Reason : Blood Pressure : / mmHG Vent. Rate : 066 BPM Atrial Rate : 066 BPM P-R Int : 160 ms QRS Dur : 082 ms QT Int : 450 ms P-R-T Axes : 000 006 030 degrees QTc Int : 471 ms NORMAL SINUS RHYTHM NORMAL ECG WHEN COMPARED WITH ECG OF 14-JUL-2017 09:21, PREMATURE SUPRAVENTRICULAR COMPLEXES ARE NO LONGER PRESENT Confirmed by CARINA FARLEY MD ([id number]) on 01/03/2018 11:32:18 AM Referred By: Confirmed By:CARINA FARLEY MD
[2018-01-03] MEDS ORDERED: ALBUTEROL SO4 2.5/IPRATROPIUM 0.5 INH SOL 3 ML VIAL.NEB. NEB ONE ×2 (13:01→16:32)
[2018-01-03] MEDS: ALBUTEROL SO4 2.5/IPRATROPIUM 0.5 INH SOL 3 ML VIAL.NEB. NEB SCH ×2 (13:04→16:30)
--- NOTE | 2018-01-03 13:28 | PN ---
Progress Note (short form) - Note Progress Note: PULMONARY CONSULTATION DICTATED 01/03/18 IMP DYSPNEA COPD EXACERBATION DIASTOLIC HF ASHD MILD PULMONARY HTN HTN HLD ANEMIA ANXIETY HYPOTHYROID PLAN INHALED BRONCHODILATORS O2 PRN MEDROL X 24HRS SLEEP SCREEN MONITOR H+H LASIX PRN Problem List - Problems (1) Dyspnea Code(s): R06.00 - DYSPNEA, UNSPECIFIED Qualifiers: Dyspnea type: shortness of breath Qualified Code(s): R06.02 - Shortness of breath; R06.00 - Dyspnea, unspecified; R06.01 - Orthopnea (2) Acute on chronic diastolic (congestive) heart failure Code(s): I50.33 - ACUTE ON CHRONIC DIASTOLIC (CONGESTIVE) HEART FAILURE (3) COPD (chronic obstructive pulmonary disease) Code(s): J44.9 - CHRONIC OBSTRUCTIVE PULMONARY DISEASE, UNSPECIFIED Qualifiers: (4) Coronary artery disease Code(s): I25.10 - ATHSCL HEART DISEASE OF [place] CORONARY ARTERY W/O ANG PCTRS Qualifiers: (5) H/O heart artery stent Code(s): Z95.5 - PRESENCE OF CORONARY ANGIOPLASTY IMPLANT AND GRAFT (6) Hyperlipidemia Code(s): E78.5 - HYPERLIPIDEMIA, UNSPECIFIED (7) Hypertension Code(s): I10 - ESSENTIAL (PRIMARY) HYPERTENSION Qualifiers: Hypertension type: essential hypertension Qualified Code(s): I10 - Essential (primary) hypertension (8) Hypothyroid Code(s): E03.9 - HYPOTHYROIDISM, UNSPECIFIED Qualifiers: (9) Iron (Fe) deficiency anemia Code(s): D50.9 - IRON DEFICIENCY ANEMIA, UNSPECIFIED (10) Left ventricular diastolic dysfunction Code(s): I51.9 - HEART DISEASE, UNSPECIFIED (11) Shortness of breath Code(s): R06.02 - SHORTNESS OF BREATH
--- NOTE | 2018-01-03 14:16 | CONS ---
DATE OF CONSULTATION: 01/03/2018 REFERRING PHYSICIAN: Edison Shelby MD HISTORY: The patient is an 82-year-old white female with extensive past medical history that includes ASHD status post stent in 2007 LAD, hypothyroidism, hypertension, hyperlipidemia, probably mild COPD, history of mild pulmonary hypertension on recent cardiac catheterization, chronic venous insufficiency, chronic URIs admitted to [facility] with the complaint of increasing shortness of breath, dyspnea on exertion, orthopnea, and leg weakness. The patient states she is always short of breath. She has been on multiple inhalers as well as steroids with minimal improvement. She says the past couple of days she started developing worsening symptoms at which time she presented to the emergency room. She denied any nausea, vomiting, or diaphoresis. Denies any hemoptysis. Denies any chest pain or palpitations. She is a nonsmoker. She denies any history of occupational exposures to chemicals or fumes. She had an extensive workup, which included cardiac catheterization recently, which revealed evidence of mild elevated pulmonary wedge pressure and mild pulmonary hypertension. She had CT scans of chest last being October 28, 2017, which revealed evidence of severe coronary artery calcification, borderline size pulmonary artery, mild mediastinal adenopathy, and evaluate mild bronchiectasis. The patient denies any hemoptysis. Denies any weight loss. Of note, has had a weight gain. She denies any recent travel. PAST MEDICAL HISTORY: Again, includes ASHD status post stents, mild pulmonary hypertension, COPD, hypothyroidism, hyperlipidemia, hypertension, chronic venous insufficiency, chronic URIs. SOCIAL HISTORY: Again, no occupational exposures. Nonsmoker. REVIEW OF SYSTEMS: Positive orthopnea, positive dyspnea, positive cough nonproductive. No fever, no chills, no hemoptysis, no abdominal pain. CURRENT MEDICATIONS: Include prednisone 5 mg daily, Tylenol, Diovan, Lexapro, DuoNeb, Flonase, Apresoline, Lipitor, Lasix, aspirin, Protonix, K-Dur, Synthroid, vitamin B12, and vitamin D3. PHYSICAL EXAMINATION: General: The patient is an elderly white female well developed, mildly dyspneic in no acute distress. Vital Signs: She is afebrile. Blood pressure is 131/74, respiratory rate 18, O2 saturation 97% on room air. HEENT: Normocephalic and atraumatic. Neck: Supple. Heart: Regular with S1, S2. Chest: A few scattered wheezes. Abdomen: Soft. Bowel sounds are positive. Extremities: No cyanosis or edema. LABORATORIES: WBC 9.6, hemoglobin 9.9, hematocrit with a platelet count of 256,000, INR 0.99. Venous blood gas 7.45, PCO2 of 35, PO2 of 33, bicarbonate 24. BUN 34, creatinine 0.9. Chest x-ray: There are no acute infiltrates or effusions. IMPRESSION: 1. Dyspnea, multiple factors. 2. Some mild chronic obstructive pulmonary disease exacerbation. 3. Pulmonary hypertension. 4. Arteriosclerotic heart disease, status post stents. 5. Anemia. 6. Hypertension. 7. Hyperlipidemia. 8. Hypothyroidism. PLAN: Inhaled bronchodilators, O2, IV steroids. Monitor hemoglobin and hematocrit. Also, we will do a sleep screen tonight to see if there is any evidence of sleep apnea, which is contributing to the patient's pulmonary hypertension. Continue current cardiac medications. JOSEFA JANSEN M.D. [id number]
[2018-01-03] MEDS: methylPREDNISolone NA SUCC 40 MG/1 ML VIAL IVPUSH SCH ×2 (16:30→23:35)
[2018-01-03] MEDS ORDERED: methylPREDNISolone NA SUCC 40 MG/1 ML VIAL ONE (16:31)
[2018-01-03] MEDS ORDERED: POLYETHYLENE GLYCOL 3350 119 GM BTL PO ONE (21:17)
[2018-01-03] MEDS: ATORVASTATIN CA 40 MG TABLET (FP) PO SCH (23:36)
[2018-01-04] MEDS: methylPREDNISolone NA SUCC 40 MG/1 ML VIAL IVPUSH SCH ×4 (03:59→22:08)
[2018-01-04] MEDS ORDERED: LEVOTHYROXINE NA 25 MCG TABLET (FP) ONE (06:28)
[2018-01-04] MEDS ORDERED: LEVOTHYROXINE NA 112 MCG TABLET (FP) ONE (06:29)
[2018-01-04] MEDS: LEVOTHYROXINE 112 MCG, LEVOTHYROXINE 25 MCG PO SCH (06:47)
[2018-01-04 08:10] LABS: BASO % 0.2 % (0-2.0); HEMATOCRIT 31.5 % (32.4-45.2); HEMOGLOBIN 10.1 GM/dL (10.7-15.3); LYMPH % 8.9 % (8-40); MCH 25.1 pg (25.7-33.7); MCHC 32.1 g/dl (32.0-36.0); MEAN CELL VOLUME 78.3 fl (80-96); MONO % 0.8 % (3.8-10.2); NEUT % 90.1 % (42.8-82.8); PLATELET COUNT 265 K/MM3 (134-434); RBC 4.03 M/mm3 (3.60-5.2); RDW 16.9 % (11.6-15.6); WHITE BLOOD COUNT 8.1 K/mm3 (4.0-10.0)
[2018-01-04 08:26] LABS: CHLORIDE 111 mmol/L (98-107); POTASSIUM 4.1 mmol/L (3.5-5.1); SODIUM 144 mmol/L (136-145)
[2018-01-04 08:37] LABS: ANION GAP 9 (8-16); BLOOD UREA NITROGEN 32 mg/dL (7-18); CALCIUM 8.8 mg/dL (8.5-10.1); CO2 24 mmol/L (21-32); CREATININE 0.9 mg/dL (0.55-1.02); GLUCOSE,RANDOM 115 mg/dL (74-106); MAGNESIUM 2.1 mg/dL (1.8-2.4); PHOSPHOROUS 3.9 mg/dL (2.5-4.9)
[2018-01-04] MEDS: ALBUTEROL SO4 2.5/IPRATROPIUM 0.5 INH SOL 3 ML VIAL.NEB. NEB SCH ×5 (08:40→21:32)
[2018-01-04] MEDS ORDERED: PT OWN MED DRAWER 7, Y5N ONE (09:48)
--- NOTE | 2018-01-04 09:51 | PN ---
Progress Note (short form) - Note Progress Note: PULMONARY Still significant dyspnea with exertion. +wheezing. No chest pain. Last Vital Signs Temp Pulse Resp BP Pulse Ox 98.1 F 79 20 123/45 97 01/04/18 06:00 01/04/18 06:00 01/04/18 06:00 01/04/18 06:00 01/04/18 03:00 Gen: tachypneic with exertion Heart: RRR Lung: upper airway wheezes Abd: soft, nontender Ext: no edema CBC, BMP 01/04/18 06:00 01/04/18 06:00 Active Medications Acetaminophen (Tylenol -) 650 mg PO Q4H PRN PRN Reason: FEVER Albuterol/Ipratropium (Duoneb -) 1 amp NEB RQID [facility] Last Admin: 01/03/18 16:30 Dose: 1 amp Aspirin (Asa -) 81 mg PO DAILY [facility] Last Admin: 01/03/18 10:46 Dose: 81 mg Atorvastatin Calcium (Lipitor -) 40 mg PO HS [facility] Last Admin: 01/03/18 23:36 Dose: 40 mg Cholecalciferol (Vitamin D3 -) 2,000 unit PO DAILY [facility] Last Admin: 01/03/18 10:48 Dose: 2,000 unit Cyanocobalamin (Vitamin B12 -) 1,000 mcg PO DAILY [facility] Last Admin: 01/03/18 10:48 Dose: 1,000 mcg Escitalopram Oxalate (Lexapro -) 20 mg PO DAILY [facility] Last Admin: 01/03/18 10:48 Dose: 20 mg Fluticasone Propionate (Flonase -) 1 spray NS BID [facility] Last Admin: 01/03/18 23:36 Dose: 1 spray Furosemide (Lasix -) 20 mg PO DAILY [facility] Last Admin: 01/03/18 10:48 Dose: 20 mg Hydralazine HCl (Apresoline -) 50 mg PO BID [facility] Last Admin: 01/03/18 23:36 Dose: 50 mg Levothyroxine Sodium 112 mcg/ (Levothyroxine Sodium 25 mcg) 137 mcg PO DAILY@ 0700 [facility] Last Admin: 01/04/18 06:47 Dose: 137 mcg Methylprednisolone Sodium Succinate (Solu-Medrol -) 40 mg IVPUSH Q6H-IV [facility] Last Admin: 01/04/18 03:59 Dose: 40 mg Pantoprazole Sodium (Protonix -) 40 mg PO BID [facility] Last Admin: 01/03/18 23:37 Dose: 40 mg Potassium Chloride (K-Dur -) 10 meq PO DAILY [facility] Last Admin: 01/03/18 10:48 Dose: 10 meq Prednisone (Deltasone -) 5 mg PO DAILY [facility] Last Admin: 01/03/18 10:46 Dose: 5 mg Valsartan (Diovan -) 320 mg PO BID [facility] Last Admin: 01/03/18 23:36 Dose: 320 mg A/P Acute COPD Exacerbation r/o Stridor LV Diastolic Dysfunction Mild Pulmonary HTN CAD HTN Hyperlipidemia Anxiety - did not desaturate with symptoms off O2, less likely significant VTE - CT chest to visualize airways/trachea - continue medrol - inhaled bronchodilators - O2 as needed - continue cardiac meds - DVT prophylaxis
[2018-01-04] MEDS: hydrALAZINE HCL 50 MG TABLET (FP) PO SCH ×2 (10:58→22:08)
[2018-01-04] MEDS: CHOLECALCIFEROL (VITAMIN D3) 1,000 UNIT TABLET (FP) PO SCH (10:58)
[2018-01-04] MEDS: FUROSEMIDE 20 MG TABLET (FP) PO SCH (10:58)
[2018-01-04] MEDS: CYANOCOBALAMIN 1,000 MCG TABLET (FP) PO SCH (10:58)
[2018-01-04] MEDS: VALSARTAN 160 MG TABLET (UD) PO SCH ×2 (10:58→22:08)
[2018-01-04] MEDS: ESCITALOPRAM OXALATE 20 MG TABLET (FP) PO SCH (10:58)
[2018-01-04] MEDS: FLUTICASONE PROP 0.05% 16 GM NASAL SPRAY NS SCH ×2 (10:59→22:15)
[2018-01-04] MEDS: predniSONE 5 MG TABLET (UD) PO SCH (10:59)
[2018-01-04] MEDS: ASPIRIN 81 MG CHEWABLE TABLETS PO SCH (10:59)
[2018-01-04] MEDS: POTASSIUM CHLORIDE TABS 10 MEQ TABLET.ER (FP) PO SCH (10:59)
[2018-01-04] MEDS: PANTOPRAZOLE 40 MG TABLET (FP) PO SCH ×2 (10:59→22:08)
--- NOTE | 2018-01-04 11:24 | PN ---
Progress Note, Physician Chief Complaint: Ms Dorantes says she had "an attack" of shortness of breath this morning. Also complains of restless legs that interfere with her sleep. No cp or n/v. - Current Medication List Current Medications: Active Medications Acetaminophen (Tylenol -) 650 mg PO Q4H PRN PRN Reason: FEVER Acetylcysteine (Mucomyst 20 Oral / Inh Use Only*) 1,200 mg PO BID [facility] Stop: 01/05/18 22:01 Albuterol/Ipratropium (Duoneb -) 1 amp NEB RQID [facility] Last Admin: 01/04/18 08:40 Dose: 1 amp Aspirin (Asa -) 81 mg PO DAILY [facility] Last Admin: 01/04/18 10:59 Dose: 81 mg Atorvastatin Calcium (Lipitor -) 40 mg PO HS [facility] Last Admin: 01/03/18 23:36 Dose: 40 mg Cholecalciferol (Vitamin D3 -) 2,000 unit PO DAILY [facility] Last Admin: 01/04/18 10:58 Dose: 2,000 unit Cyanocobalamin (Vitamin B12 -) 1,000 mcg PO DAILY [facility] Last Admin: 01/04/18 10:58 Dose: 1,000 mcg Escitalopram Oxalate (Lexapro -) 20 mg PO DAILY [facility] Last Admin: 01/04/18 10:58 Dose: 20 mg Fluticasone Propionate (Flonase -) 1 spray NS BID [facility] Last Admin: 01/04/18 10:59 Dose: 1 spray Furosemide (Lasix -) 20 mg PO DAILY [facility] Last Admin: 01/04/18 10:58 Dose: 20 mg Hydralazine HCl (Apresoline -) 50 mg PO BID [facility] Last Admin: 01/04/18 10:58 Dose: 50 mg Levothyroxine Sodium 112 mcg/ (Levothyroxine Sodium 25 mcg) 137 mcg PO DAILY@ 0700 [facility] Last Admin: 01/04/18 06:47 Dose: 137 mcg Methylprednisolone Sodium Succinate (Solu-Medrol -) 40 mg IVPUSH Q6H-IV [facility] Last Admin: 01/04/18 10:58 Dose: 40 mg Pantoprazole Sodium (Protonix -) 40 mg PO BID [facility] Last Admin: 01/04/18 10:59 Dose: 40 mg Potassium Chloride (K-Dur -) 10 meq PO DAILY [facility] Last Admin: 01/04/18 10:59 Dose: 10 meq Valsartan (Diovan -) 320 mg PO BID [facility] Last Admin: 01/04/18 10:58 Dose: 320 mg - Objective Vital Signs: Vital Signs Temperature 36.7 C 01/04/18 06:00 Pulse Rate 79 01/04/18 06:00 Respiratory Rate 20 01/04/18 06:00 Blood Pressure 123/45 01/04/18 06:00 O2 Sat by Pulse Oximetry (%) 97 01/04/18 03:00 Constitutional: Yes: Well Nourished, No Distress, Anxious (slight) Cardiovascular: Yes: Regular Rate and Rhythm. No: Gallop, Murmur, Rub Respiratory: Yes: Regular, CTA Bilaterally, On Nasal O2. No: Rales, Rhonchi, Wheezes Gastrointestinal: Yes: Normal Bowel Sounds, Soft. No: Distention, Tenderness Extremities: Yes: WNL Edema: No Labs: CBC, BMP 01/04/18 06:00 01/04/18 06:00 INR, PTT INR 0.99 (0.82-1.09) 01/02/18 20:53 Problem List - Problems (1) COPD (chronic obstructive pulmonary disease) Code(s): J44.9 - CHRONIC OBSTRUCTIVE PULMONARY DISEASE, UNSPECIFIED Qualifiers: (2) Congestive cardiac failure Code(s): I50.9 - HEART FAILURE, UNSPECIFIED Qualifiers: Qualified Code(s): I50.32 - Chronic diastolic (congestive) heart failure (3) Dyspnea Code(s): R06.00 - DYSPNEA, UNSPECIFIED Qualifiers: Dyspnea type: shortness of breath Qualified Code(s): R06.02 - Shortness of breath; R06.00 - Dyspnea, unspecified; R06.01 - Orthopnea (4) Hyperlipidemia Code(s): E78.5 - HYPERLIPIDEMIA, UNSPECIFIED (5) Hypertension Code(s): I10 - ESSENTIAL (PRIMARY) HYPERTENSION Qualifiers: Hypertension type: essential hypertension Qualified Code(s): I10 - Essential (primary) hypertension (6) Hypothyroid Code(s): E03.9 - HYPOTHYROIDISM, UNSPECIFIED Qualifiers: (7) Restless leg syndrome Code(s): G25.81 - RESTLESS LEGS SYNDROME Assessment/Plan (1) COPD (chronic obstructive pulmonary disease) Assessment/Plan: -appreciate pulmonary assistance and case discussed -continue duonebs -started on solumedrol for 24 hours -CT scan chest with contrast -mucomyst for PPx Code(s): J44.9 - CHRONIC OBSTRUCTIVE PULMONARY DISEASE, UNSPECIFIED Qualifiers: (2) Congestive cardiac failure Assessment/Plan: -appreciate cardiology assistance, note reviewed -continue oral lasix Code(s): I50.9 - HEART FAILURE, UNSPECIFIED Qualifiers: Qualified Code(s): I50.32 - Chronic diastolic (congestive) heart failure (3) Dyspnea Assessment/Plan: -secondary to COPD -as above Code(s): R06.00 - DYSPNEA, UNSPECIFIED Qualifiers: Dyspnea type: shortness of breath Qualified Code(s): R06.02 - Shortness of breath; R06.00 - Dyspnea, unspecified; R06.01 - Orthopnea (4) Hyperlipidemia Assessment/Plan: -continue lipitor Code(s): E78.5 - HYPERLIPIDEMIA, UNSPECIFIED (5) Hypertension Assessment/Plan: -controlled -continue home regimen Code(s): I10 - ESSENTIAL (PRIMARY) HYPERTENSION Qualifiers: Hypertension type: essential hypertension Qualified Code(s): I10 - Essential (primary) hypertension (6) Hypothyroid Assessment/Plan: -continue levothyroxine Code(s): E03.9 - HYPOTHYROIDISM, UNSPECIFIED Qualifiers: (7) Restless legs -consult neurology
--- NOTE | 2018-01-04 12:14 | PN ---
Progress Note (short form) - Note Progress Note: cc: herr, leg weakness S: still with significant sob, orthopnea. no cp, palps, dizziness. had chest ct today. Current Medications Acetaminophen (Tylenol -) 650 mg PO Q4H PRN PRN Reason: FEVER Acetylcysteine (Mucomyst 20 Oral / Inh Use Only*) 1,200 mg PO BID [facility] Stop: 01/05/18 22:01 Albuterol/Ipratropium (Duoneb -) 1 amp NEB RQID [facility] Last Admin: 01/04/18 11:38 Dose: 1 amp Aspirin (Asa -) 81 mg PO DAILY [facility] Last Admin: 01/04/18 10:59 Dose: 81 mg Atorvastatin Calcium (Lipitor -) 40 mg PO HS [facility] Last Admin: 01/03/18 23:36 Dose: 40 mg Cholecalciferol (Vitamin D3 -) 2,000 unit PO DAILY [facility] Last Admin: 01/04/18 10:58 Dose: 2,000 unit Cyanocobalamin (Vitamin B12 -) 1,000 mcg PO DAILY [facility] Last Admin: 01/04/18 10:58 Dose: 1,000 mcg Escitalopram Oxalate (Lexapro -) 20 mg PO DAILY [facility] Last Admin: 01/04/18 10:58 Dose: 20 mg Fluticasone Propionate (Flonase -) 1 spray NS BID [facility] Last Admin: 01/04/18 10:59 Dose: 1 spray Furosemide (Lasix -) 20 mg PO DAILY [facility] Last Admin: 01/04/18 10:58 Dose: 20 mg Hydralazine HCl (Apresoline -) 50 mg PO BID [facility] Last Admin: 01/04/18 10:58 Dose: 50 mg Levothyroxine Sodium 112 mcg/ (Levothyroxine Sodium 25 mcg) 137 mcg PO DAILY@ 0700 [facility] Last Admin: 01/04/18 06:47 Dose: 137 mcg Methylprednisolone Sodium Succinate (Solu-Medrol -) 40 mg IVPUSH Q6H-IV [facility] Last Admin: 01/04/18 10:58 Dose: 40 mg Pantoprazole Sodium (Protonix -) 40 mg PO BID [facility] Last Admin: 01/04/18 10:59 Dose: 40 mg Potassium Chloride (K-Dur -) 10 meq PO DAILY [facility] Last Admin: 01/04/18 10:59 Dose: 10 meq Valsartan (Diovan -) 320 mg PO BID [facility] Last Admin: 01/04/18 10:58 Dose: 320 mg pe: Vital Signs - 24 hr 01/03/18 01/03/18 01/03/18 14:27 19:00 22:00 Temperature 98 F 98.3 F Pulse Rate 74 77 74 Respiratory 18 20 18 Rate Blood Pressure 124/48 123/61 121/53 O2 Sat by Pulse 97 Oximetry (%) 01/04/18 01/04/18 01/04/18 03:00 06:00 10:00 Temperature 98.1 F 98.3 F Pulse Rate 79 74 Respiratory 20 24 Rate Blood Pressure 123/45 135/70 O2 Sat by Pulse 97 Oximetry (%) Intake & Output 01/02/18 01/03/18 01/04/18 01/05/18 07:59 07:59 07:59 07:59 Weight 160 lb 157 lb nad, jvd appears elevated rrr s1s2 no mrg diminished air movment, nl eff aaox3 trace edema. no c/c abd nt nd pos bs no jaundiced diaphoresis +dp/pt, no carotid bruits CBC, BMP 01/04/18 06:00 01/04/18 06:00 Laboratory Tests 01/03/18 01/04/18 13:00 06:00 Magnesium 2.1 TSH 10.90 H ecg: sr, nl intervals, no ischemic changes prior tele: sr echo 03/2017: nl lv/rv, mild ar/mr mibi 03/2017: nl mpi, nl lvef cxr: clear lungs chest ct: mild bilateral lower lobe atelectasis/scarring. mild subpleural bibasilar reticulation. calc cors. stable lad. see emr for detailed findings. A/P 82 f hx htn, hld, hypothyroid, cad s/p pci 2007 (lad), le edema/venous insuff, chronic URIs here with herr, leg weakness. sob, leg weakness: -chronic issues for pt -evaluated recently from cardiac standpoint with left and right heart cath (2017). cath showed no obstructive cad and rhc showed only mildly elevated pulm pressure/wedge. -currently bnp low, no signs chf on exam, cxr clear -no signs acs -would continue current cardiac meds -consider PT. pt also [facility], cont to f/u. - 01/04: still with significant orthopnea on exam although no significant edema or congestion noted on chest ct. may have been on 40 mg of lasix as outpatient. Will give one time IV dose of 40 mg tomorrow and then increase po dose to 40 mg daily. chronic diastolic chf: -as above -recent echo, mibi, lhc/rhc, unremarkable -cont po lasix chronic LE edema/venous insuff: -stable currently htn: -cont home meds cad s/p remote pci: -stable, no signs acs -cont home regimen statin, arb, asa
[2018-01-04] MEDS: ACETYLCYSTEINE 20% 200MG/ML 4 ML VIAL *FOR ORAL / INH USE ONLY PO SCH ×2 (15:57→22:18)
[2018-01-04] MEDS: ATORVASTATIN CA 40 MG TABLET (FP) PO SCH (22:08)
[2018-01-05] MEDS: methylPREDNISolone NA SUCC 40 MG/1 ML VIAL IVPUSH SCH ×4 (03:01→17:24)
[2018-01-05] MEDS ORDERED: LEVOTHYROXINE NA 112 MCG TABLET (FP) ONE (05:47)
[2018-01-05] MEDS ORDERED: LEVOTHYROXINE NA 25 MCG TABLET (FP) ONE (05:47)
[2018-01-05] MEDS: LEVOTHYROXINE 112 MCG, LEVOTHYROXINE 25 MCG PO SCH (06:05)
[2018-01-05 07:53] LABS: BASO % 0.1 % (0-2.0); HEMATOCRIT 29.7 % (32.4-45.2); HEMOGLOBIN 9.6 GM/dL (10.7-15.3); LYMPH % 4.5 % (8-40); MCH 25.3 pg (25.7-33.7); MCHC 32.5 g/dl (32.0-36.0); MEAN PLT VOLUME 8.8 fl (7.5-11.1); MONO % 3.6 % (3.8-10.2); NEUT % 91.8 % (42.8-82.8); PLATELET COUNT 266 K/MM3 (134-434); RDW 16.6 % (11.6-15.6); WHITE BLOOD COUNT 13.4 K/mm3 (4.0-10.0)
[2018-01-05] MEDS: ALBUTEROL SO4 2.5/IPRATROPIUM 0.5 INH SOL 3 ML VIAL.NEB. NEB SCH ×4 (08:03→20:35)
--- NOTE | 2018-01-05 08:28 | PN ---
Progress Note (short form) - Note Progress Note: Dr. Shelby to document today.
[2018-01-05 08:29] LABS: ANION GAP 9 (8-16); BLOOD UREA NITROGEN 40 mg/dL (7-18); CHLORIDE 110 mmol/L (98-107); CO2 25 mmol/L (21-32); GLUCOSE,RANDOM 122 mg/dL (74-106); MAGNESIUM 2.3 mg/dL (1.8-2.4); POTASSIUM 4.1 mmol/L (3.5-5.1); SODIUM 144 mmol/L (136-145)
[2018-01-05 08:32] LABS: CREATININE 1.1 mg/dL (0.55-1.02); PHOSPHOROUS 4.2 mg/dL (2.5-4.9)
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
[2018-01-05] MEDS ORDERED: PT OWN MED DRAWER 7, Y5N ONE ×3 (09:27→21:17)
[2018-01-05] MEDS: PANTOPRAZOLE 40 MG TABLET (FP) PO SCH ×2 (09:35→21:29)
[2018-01-05] MEDS: CHOLECALCIFEROL (VITAMIN D3) 1,000 UNIT TABLET (FP) PO SCH (09:35)
[2018-01-05] MEDS: CYANOCOBALAMIN 1,000 MCG TABLET (FP) PO SCH (09:35)
[2018-01-05] MEDS: hydrALAZINE HCL 50 MG TABLET (FP) PO SCH ×2 (09:35→21:29)
[2018-01-05] MEDS: ESCITALOPRAM OXALATE 20 MG TABLET (FP) PO SCH (09:35)
[2018-01-05] MEDS: ACETYLCYSTEINE 20% 200MG/ML 4 ML VIAL *FOR ORAL / INH USE ONLY PO SCH ×2 (09:35→21:34)
[2018-01-05] MEDS: POTASSIUM CHLORIDE TABS 10 MEQ TABLET.ER (FP) PO SCH (09:35)
[2018-01-05] MEDS: ASPIRIN 81 MG CHEWABLE TABLETS PO SCH (09:35)
[2018-01-05] MEDS: FLUTICASONE PROP 0.05% 16 GM NASAL SPRAY NS SCH ×2 (09:35→21:30)
[2018-01-05] MEDS: VALSARTAN 160 MG TABLET (UD) PO SCH ×2 (09:55→21:29)
[2018-01-05] MEDS ORDERED: FUROSEMIDE 40 MG/4 ML INJECTABLE VIAL IVPUSH ONE (10:00)
--- NOTE | 2018-01-05 10:55 | PN ---
Progress Note (short form) - Note Progress Note: cc: herr, leg weakness S: sob a little better. no cp, palps, dizziness. Current Medications Generic Name Dose Route Start Last Admin Trade Name Frejose alejandro PRN Reason Stop Dose Admin Acetaminophen 650 mg 01/03/18 11:04 Tylenol - PO Q4H PRN FEVER Acetylcysteine 1,200 mg 01/04/18 11:30 01/05/18 09:35 Mucomyst 20 Oral / Inh Use Only* PO 01/05/18 22:01 1,200 mg BID HUNTER Administration Albuterol/Ipratropium 1 amp 01/03/18 12:00 01/05/18 08:03 Duoneb - NEB 1 amp RQID HUNTER Administration Aspirin 81 mg 01/03/18 10:00 01/05/18 09:35 Asa - PO 81 mg DAILY HUNTER Administration Atorvastatin Calcium 40 mg 01/03/18 22:00 01/04/18 22:08 Lipitor - PO 40 mg HS HUNTER Administration Cholecalciferol 2,000 unit 01/03/18 10:00 01/05/18 09:35 Vitamin D3 - PO 2,000 unit DAILY HUNTER Administration Cyanocobalamin 1,000 mcg 01/03/18 10:00 01/05/18 09:35 Vitamin B12 - PO 1,000 mcg DAILY HUNTER Administration Escitalopram Oxalate 20 mg 01/03/18 10:00 01/05/18 09:35 Lexapro - PO 20 mg DAILY HUNTER Administration Fluticasone Propionate 1 spray 01/03/18 10:00 01/05/18 09:35 Flonase - NS 1 spray BID HUNTER Administration Furosemide 40 mg 01/06/18 10:00 Lasix - PO DAILY HUNTER Hydralazine HCl 50 mg 01/03/18 10:00 01/05/18 09:35 Apresoline - PO 50 mg BID HUNTER Administration Levothyroxine Sodium 112 mcg/ 137 mcg 01/03/18 07:00 01/05/18 06:05 Levothyroxine Sodium 25 mcg PO 137 mcg DAILY@0700 HUNTER Administration Methylprednisolone Sodium Succinate 40 mg 01/03/18 15:00 01/05/18 09:35 Solu-Medrol - IVPUSH 40 mg Q6H-IV HUNTER Administration Pantoprazole Sodium 40 mg 01/03/18 10:00 01/05/18 09:35 Protonix - PO 40 mg BID HUNTER Administration Potassium Chloride 10 meq 01/03/18 10:00 01/05/18 09:35 K-Dur - PO 10 meq DAILY HUNTER Administration Ropinirole HCl 0.25 mg 01/05/18 10:00 Requip - PO BID HUNTER Valsartan 320 mg 01/03/18 10:00 01/05/18 09:55 Diovan - PO 320 mg BID HUNTER Administration Vital Signs Period Temp Pulse Resp BP Sys/Iros Pulse Ox Last 24 Hr 97.8 F-98.7 F 48-85 18-22 128-148/63-68 97-97 nad, no jvd rrr s1s2 no mrg diminished air movment, nl eff aaox3 no le e/c/c abd nt nd pos bs no jaundiced diaphoresis CBC, BMP 01/05/18 06:25 01/05/18 06:25 ecg: sr, nl intervals, no ischemic changes echo 03/2017: nl lv/rv, mild ar/mr mibi 03/2017: nl mpi, nl lvef cxr: clear lungs chest cta: no PE. mild bilateral lower lobe atelectasis/scarring. mild subpleural bibasilar reticulation. see emr for detailed findings. A/P 82 f hx htn, hld, hypothyroid, cad s/p pci 2007 (lad), le edema/venous insuff, chronic URIs here with herr, leg weakness. sob, leg weakness: -chronic issues for pt -evaluated recently from cardiac standpoint with left and right heart cath (2017). cath showed no obstructive cad and rhc showed only mildly elevated pulm pressure/wedge. -currently bnp low, no signs chf on exam, cxr clear -no signs acs -would continue current cardiac meds - PT. pt also seeing pulm specialist in [facility], cont to f/u. -cont lasix 40 po qd chronic diastolic chf: -as above -recent echo, mibi, lhc/rhc, unremarkable -cont po lasix chronic LE edema/venous insuff: -stable currently htn: -cont home meds cad s/p remote pci: -stable, no signs acs -cont home regimen statin, arb, asa
[2018-01-05] MEDS: rOPINIRole HCL 0.25 MG TABLET PO SCH ×2 (11:59→21:29)
--- NOTE | 2018-01-05 14:38 | PN ---
Progress Note, Physician Chief Complaint: Ms Dorantes says she is still having some shortness of breath. No cp or n/v. - Current Medication List Current Medications: Active Medications Acetaminophen (Tylenol -) 650 mg PO Q4H PRN PRN Reason: FEVER Acetylcysteine (Mucomyst 20 Oral / Inh Use Only*) 1,200 mg PO BID [facility] Stop: 01/05/18 22:01 Last Admin: 01/05/18 09:35 Dose: 1,200 mg Albuterol/Ipratropium (Duoneb -) 1 amp NEB RQID [facility] Last Admin: 01/05/18 11:53 Dose: 1 amp Aspirin (Asa -) 81 mg PO DAILY [facility] Last Admin: 01/05/18 09:35 Dose: 81 mg Atorvastatin Calcium (Lipitor -) 40 mg PO HS [facility] Last Admin: 01/04/18 22:08 Dose: 40 mg Cholecalciferol (Vitamin D3 -) 2,000 unit PO DAILY [facility] Last Admin: 01/05/18 09:35 Dose: 2,000 unit Cyanocobalamin (Vitamin B12 -) 1,000 mcg PO DAILY [facility] Last Admin: 01/05/18 09:35 Dose: 1,000 mcg Escitalopram Oxalate (Lexapro -) 20 mg PO DAILY [facility] Last Admin: 01/05/18 09:35 Dose: 20 mg Fluticasone Propionate (Flonase -) 1 spray NS BID [facility] Last Admin: 01/05/18 09:35 Dose: 1 spray Furosemide (Lasix -) 40 mg PO DAILY [facility] Hydralazine HCl (Apresoline -) 50 mg PO BID [facility] Last Admin: 01/05/18 09:35 Dose: 50 mg Levothyroxine Sodium 112 mcg/ (Levothyroxine Sodium 25 mcg) 137 mcg PO DAILY@ 0700 [facility] Last Admin: 01/05/18 06:05 Dose: 137 mcg Methylprednisolone Sodium Succinate (Solu-Medrol -) 40 mg IVPUSH Q6H-IV [facility] Last Admin: 01/05/18 14:08 Dose: 40 mg Pantoprazole Sodium (Protonix -) 40 mg PO BID [facility] Last Admin: 01/05/18 09:35 Dose: 40 mg Potassium Chloride (K-Dur -) 10 meq PO DAILY [facility] Last Admin: 01/05/18 09:35 Dose: 10 meq Ropinirole HCl (Requip -) 0.25 mg PO BID [facility] Last Admin: 01/05/18 11:59 Dose: 0.25 mg Valsartan (Diovan -) 320 mg PO BID [facility] Last Admin: 01/05/18 09:55 Dose: 320 mg - Objective Vital Signs: Vital Signs Temperature 36.8 C 01/05/18 09:00 Pulse Rate 101 H 01/05/18 09:00 Respiratory Rate 18 01/05/18 09:00 Blood Pressure 137/85 01/05/18 09:00 O2 Sat by Pulse Oximetry (%) 94 L 01/05/18 11:00 Constitutional: Yes: No Distress, Calm, Obese Cardiovascular: Yes: Regular Rate and Rhythm. No: Gallop, Murmur, Rub Respiratory: Yes: Regular, CTA Bilaterally. No: Rales, Rhonchi, Wheezes Gastrointestinal: Yes: Normal Bowel Sounds, Soft. No: Distention, Tenderness Extremities: Yes: WNL Edema: No Labs: CBC, BMP 01/05/18 06:25 01/05/18 06:25 INR, PTT INR 0.99 (0.82-1.09) 01/02/18 20:53 Problem List - Problems (1) COPD (chronic obstructive pulmonary disease) Code(s): J44.9 - CHRONIC OBSTRUCTIVE PULMONARY DISEASE, UNSPECIFIED Qualifiers: (2) Congestive cardiac failure Code(s): I50.9 - HEART FAILURE, UNSPECIFIED Qualifiers: Qualified Code(s): I50.32 - Chronic diastolic (congestive) heart failure (3) Dyspnea Code(s): R06.00 - DYSPNEA, UNSPECIFIED Qualifiers: Dyspnea type: shortness of breath Qualified Code(s): R06.02 - Shortness of breath; R06.00 - Dyspnea, unspecified; R06.01 - Orthopnea (4) Hyperlipidemia Code(s): E78.5 - HYPERLIPIDEMIA, UNSPECIFIED (5) Hypertension Code(s): I10 - ESSENTIAL (PRIMARY) HYPERTENSION Qualifiers: Hypertension type: essential hypertension Qualified Code(s): I10 - Essential (primary) hypertension (6) Hypothyroid Code(s): E03.9 - HYPOTHYROIDISM, UNSPECIFIED Qualifiers: (7) Restless leg syndrome Code(s): G25.81 - RESTLESS LEGS SYNDROME Assessment/Plan (1) COPD (chronic obstructive pulmonary disease) Assessment/Plan: -appreciate pulmonary assistance and case discussed -continue duonebs -continue solumedrol -CT scan chest with contrast reviewed, unchanged Code(s): J44.9 - CHRONIC OBSTRUCTIVE PULMONARY DISEASE, UNSPECIFIED Qualifiers: (2) Congestive cardiac failure Assessment/Plan: -appreciate cardiology assistance, note reviewed -continue oral lasix Code(s): I50.9 - HEART FAILURE, UNSPECIFIED Qualifiers: Qualified Code(s): I50.32 - Chronic diastolic (congestive) heart failure (3) Dyspnea Assessment/Plan: -secondary to COPD -as above Code(s): R06.00 - DYSPNEA, UNSPECIFIED Qualifiers: Dyspnea type: shortness of breath Qualified Code(s): R06.02 - Shortness of breath; R06.00 - Dyspnea, unspecified; R06.01 - Orthopnea (4) Hyperlipidemia Assessment/Plan: -continue lipitor Code(s): E78.5 - HYPERLIPIDEMIA, UNSPECIFIED (5) Hypertension Assessment/Plan: -controlled -continue home regimen Code(s): I10 - ESSENTIAL (PRIMARY) HYPERTENSION Qualifiers: Hypertension type: essential hypertension Qualified Code(s): I10 - Essential (primary) hypertension (6) Hypothyroid Assessment/Plan: -continue levothyroxine -check free T4, elevated TSH Code(s): E03.9 - HYPOTHYROIDISM, UNSPECIFIED Qualifiers: (7) Restless legs -appreciate neurology consult -started on requip Dispo -possible discharge in 24-48 hours pending when safe to transition to oral steroids or stop -would benefit from SNF placement
--- NOTE | 2018-01-05 16:35 | PN ---
Progress Note, Physician History of Present Illness: pulmonary alert,feeling better,dyspnea improving,chest ct -pe - Current Medication List Current Medications: Active Medications Acetaminophen (Tylenol -) 650 mg PO Q4H PRN PRN Reason: FEVER Acetylcysteine (Mucomyst 20 Oral / Inh Use Only*) 1,200 mg PO BID [facility] Stop: 01/05/18 22:01 Last Admin: 01/05/18 09:35 Dose: 1,200 mg Albuterol/Ipratropium (Duoneb -) 1 amp NEB RQID [facility] Last Admin: 01/05/18 15:42 Dose: 1 amp Aspirin (Asa -) 81 mg PO DAILY [facility] Last Admin: 01/05/18 09:35 Dose: 81 mg Atorvastatin Calcium (Lipitor -) 40 mg PO HS [facility] Last Admin: 01/04/18 22:08 Dose: 40 mg Cholecalciferol (Vitamin D3 -) 2,000 unit PO DAILY [facility] Last Admin: 01/05/18 09:35 Dose: 2,000 unit Cyanocobalamin (Vitamin B12 -) 1,000 mcg PO DAILY [facility] Last Admin: 01/05/18 09:35 Dose: 1,000 mcg Escitalopram Oxalate (Lexapro -) 20 mg PO DAILY [facility] Last Admin: 01/05/18 09:35 Dose: 20 mg Fluticasone Propionate (Flonase -) 1 spray NS BID [facility] Last Admin: 01/05/18 09:35 Dose: 1 spray Furosemide (Lasix -) 40 mg PO DAILY [facility] Hydralazine HCl (Apresoline -) 50 mg PO BID [facility] Last Admin: 01/05/18 09:35 Dose: 50 mg Levothyroxine Sodium 112 mcg/ (Levothyroxine Sodium 25 mcg) 137 mcg PO DAILY@ 0700 [facility] Last Admin: 01/05/18 06:05 Dose: 137 mcg Methylprednisolone Sodium Succinate (Solu-Medrol -) 40 mg IVPUSH Q6H-IV [facility] Last Admin: 01/05/18 14:08 Dose: 40 mg Pantoprazole Sodium (Protonix -) 40 mg PO BID [facility] Last Admin: 01/05/18 09:35 Dose: 40 mg Potassium Chloride (K-Dur -) 10 meq PO DAILY [facility] Last Admin: 01/05/18 09:35 Dose: 10 meq Ropinirole HCl (Requip -) 0.25 mg PO BID [facility] Last Admin: 01/05/18 11:59 Dose: 0.25 mg Valsartan (Diovan -) 320 mg PO BID [facility] Last Admin: 01/05/18 09:55 Dose: 320 mg - Objective Vital Signs: Vital Signs Temperature 97.8 F 01/05/18 15:59 Pulse Rate 98 H 01/05/18 15:59 Respiratory Rate 22 01/05/18 15:59 Blood Pressure 128/80 01/05/18 15:59 O2 Sat by Pulse Oximetry (%) 94 L 01/05/18 11:00 Constitutional: Yes: Well Nourished, Anxious (less anxious) Eyes: Yes: WNL HENT: Yes: WNL Neck: Yes: WNL Cardiovascular: Yes: Regular Rate and Rhythm Respiratory: Yes: Wheezes (few wheezes) Gastrointestinal: Yes: Normal Bowel Sounds, Soft Extremities: Yes: WNL Edema: No Labs: CBC, BMP 01/05/18 06:25 01/05/18 06:25 INR, PTT INR 0.99 (0.82-1.09) 01/02/18 20:53 Problem List - Problems (1) Dyspnea Code(s): R06.00 - DYSPNEA, UNSPECIFIED Qualifiers: Dyspnea type: shortness of breath Qualified Code(s): R06.02 - Shortness of breath; R06.00 - Dyspnea, unspecified; R06.01 - Orthopnea (2) Acute on chronic diastolic (congestive) heart failure Code(s): I50.33 - ACUTE ON CHRONIC DIASTOLIC (CONGESTIVE) HEART FAILURE (3) COPD (chronic obstructive pulmonary disease) Code(s): J44.9 - CHRONIC OBSTRUCTIVE PULMONARY DISEASE, UNSPECIFIED Qualifiers: (4) Coronary artery disease Code(s): I25.10 - ATHSCL HEART DISEASE OF [place] CORONARY ARTERY W/O ANG PCTRS Qualifiers: (5) H/O heart artery stent Code(s): Z95.5 - PRESENCE OF CORONARY ANGIOPLASTY IMPLANT AND GRAFT (6) Hyperlipidemia Code(s): E78.5 - HYPERLIPIDEMIA, UNSPECIFIED (7) Hypertension Code(s): I10 - ESSENTIAL (PRIMARY) HYPERTENSION Qualifiers: Hypertension type: essential hypertension Qualified Code(s): I10 - Essential (primary) hypertension (8) Hypothyroid Code(s): E03.9 - HYPOTHYROIDISM, UNSPECIFIED Qualifiers: (9) Iron (Fe) deficiency anemia Code(s): D50.9 - IRON DEFICIENCY ANEMIA, UNSPECIFIED (10) Left ventricular diastolic dysfunction Code(s): I51.9 - HEART DISEASE, UNSPECIFIED (11) Shortness of breath Code(s): R06.02 - SHORTNESS OF BREATH Assessment/Plan IMP DYSPNEA IMPROVING COPD EXACERBATION DIASTOLIC HF ASHD MILD PULMONARY HTN HTN HLD ANEMIA ANXIETY HYPOTHYROID PLAN INHALED BRONCHODILATORS O2 PRN MEDROL TAPER SLEEP SCREEN MONITOR H+H LASIX PRN Problem List - Problems (1) Dyspnea Code(s): R06.00 - DYSPNEA, UNSPECIFIED Qualifiers: Dyspnea type: shortness of breath Qualified Code(s): R06.02 - Shortness of breath; R06.00 - Dyspnea, unspecified; R06.01 - Orthopnea (2) Acute on chronic diastolic (congestive) heart failure Code(s): I50.33 - ACUTE ON CHRONIC DIASTOLIC (CONGESTIVE) HEART FAILURE (3) COPD (chronic obstructive pulmonary disease) Code(s): J44.9 - CHRONIC OBSTRUCTIVE PULMONARY DISEASE, UNSPECIFIED Qualifiers: (4) Coronary artery disease Code(s): I25.10 - ATHSCL HEART DISEASE OF [place] CORONARY ARTERY W/O ANG PCTRS Qualifiers: (5) H/O heart artery stent Code(s): Z95.5 - PRESENCE OF CORONARY ANGIOPLASTY IMPLANT AND GRAFT (6) Hyperlipidemia Code(s): E78.5 - HYPERLIPIDEMIA, UNSPECIFIED (7) Hypertension Code(s): I10 - ESSENTIAL (PRIMARY) HYPERTENSION Qualifiers: Hypertension type: essential hypertension Qualified Code(s): I10 - Essential (primary) hypertension (8) Hypothyroid Code(s): E03.9 - HYPOTHYROIDISM, UNSPECIFIED Qualifiers: (9) Iron (Fe) deficiency anemia Code(s): D50.9 - IRON DEFICIENCY ANEMIA, UNSPECIFIED (10) Left ventricular diastolic dysfunction Code(s): I51.9 - HEART DISEASE, UNSPECIFIED (11) Shortness of breath Code(s): R06.02 - SHORTNESS OF BREATH
[2018-01-05] MEDS: ATORVASTATIN CA 40 MG TABLET (FP) PO SCH (21:29)
[2018-01-06] MEDS: methylPREDNISolone NA SUCC 40 MG/1 ML VIAL IVPUSH SCH ×2 (02:57→09:56)
[2018-01-06] MEDS ORDERED: LEVOTHYROXINE NA 25 MCG TABLET (FP) ONE (05:42)
[2018-01-06] MEDS ORDERED: LEVOTHYROXINE NA 112 MCG TABLET (FP) ONE (05:43)
[2018-01-06] MEDS: LEVOTHYROXINE 112 MCG, LEVOTHYROXINE 25 MCG PO SCH (06:01)
[2018-01-06 07:44] LABS: BASO % 0.1 % (0-2.0); HEMATOCRIT 31.3 % (32.4-45.2); LYMPH % 4.1 % (8-40); MCHC 32.1 g/dl (32.0-36.0); MEAN CELL VOLUME 77.9 fl (80-96); MEAN PLT VOLUME 8.8 fl (7.5-11.1); MONO % 4.5 % (3.8-10.2); NEUT % 91.3 % (42.8-82.8); PLATELET COUNT 292 K/MM3 (134-434); RBC 4.02 M/mm3 (3.60-5.2); RDW 16.8 % (11.6-15.6); WHITE BLOOD COUNT 12.6 K/mm3 (4.0-10.0)
[2018-01-06 08:22] LABS: ANION GAP 12 (8-16); BLOOD UREA NITROGEN 38 mg/dL (7-18); CHLORIDE 107 mmol/L (98-107); CO2 24 mmol/L (21-32); GLUCOSE,RANDOM 111 mg/dL (74-106); MAGNESIUM 2.4 mg/dL (1.8-2.4); POTASSIUM 3.8 mmol/L (3.5-5.1); SODIUM 143 mmol/L (136-145)
--- NOTE | 2018-01-06 08:22 | PN ---
Progress Note (short form) - Note Progress Note: Dr. Shelby to document today. Accepted to [facility] but will need oral steroid Rx before transfer.
[2018-01-06 08:24] LABS: CREATININE 1.1 mg/dL (0.55-1.02); PHOSPHOROUS 3.6 mg/dL (2.5-4.9)
[2018-01-06] MEDS: ALBUTEROL SO4 2.5/IPRATROPIUM 0.5 INH SOL 3 ML VIAL.NEB. NEB SCH ×2 (08:37→11:30)
--- NOTE | 2018-01-06 09:09 | PN ---
Progress Note (short form) - Note Progress Note: Neurology History of Present Illness: This is a 82 y/o woman with a significant medical history of CAD (Stents x2) PCI 2007 (LAD), COPD, LE Edema/Venous Insufficiency who presented to the ED with dyspnea on rest, chronic leg weakness, and I was consulted for ongoing restless sensations in her b/l LE. Patient reported presented with SOB and dyspnea along with non-productive cough that is being acutely managed. She reports leg sensation and urges to move with b/l shaking that I visualized. Occurs particularly at night. Discussed with her that it may be underlying RLS though she also appears anxious and nervous and this may be making it worse. Started her on Ropinerole, this AM feels much better. Less discomfort in her legs. Accepted to [facility], planned for transfer. Active Medications Acetaminophen (Tylenol -) 650 mg PO Q4H PRN PRN Reason: FEVER Albuterol/Ipratropium (Duoneb -) 1 amp NEB RQID [facility] Last Admin: 01/06/18 08:37 Dose: 1 amp Aspirin (Asa -) 81 mg PO DAILY [facility] Last Admin: 01/05/18 09:35 Dose: 81 mg Atorvastatin Calcium (Lipitor -) 40 mg PO HS [facility] Last Admin: 01/05/18 21:29 Dose: 40 mg Cholecalciferol (Vitamin D3 -) 2,000 unit PO DAILY [facility] Last Admin: 01/05/18 09:35 Dose: 2,000 unit Cyanocobalamin (Vitamin B12 -) 1,000 mcg PO DAILY [facility] Last Admin: 01/05/18 09:35 Dose: 1,000 mcg Escitalopram Oxalate (Lexapro -) 20 mg PO DAILY [facility] Last Admin: 01/05/18 09:35 Dose: 20 mg Fluticasone Propionate (Flonase -) 1 spray NS BID [facility] Last Admin: 01/05/18 21:30 Dose: 1 spray Furosemide (Lasix -) 40 mg PO DAILY [facility] Hydralazine HCl (Apresoline -) 50 mg PO BID [facility] Last Admin: 01/05/18 21:29 Dose: 50 mg Levothyroxine Sodium 112 mcg/ (Levothyroxine Sodium 25 mcg) 137 mcg PO DAILY@ 0700 [facility] Last Admin: 01/06/18 06:01 Dose: 137 mcg Methylprednisolone Sodium Succinate (Solu-Medrol -) 40 mg IVPUSH Q8H-IV [facility] Last Admin: 01/06/18 02:57 Dose: 40 mg Pantoprazole Sodium (Protonix -) 40 mg PO BID [facility] Last Admin: 01/05/18 21:29 Dose: 40 mg Potassium Chloride (K-Dur -) 10 meq PO DAILY [facility] Last Admin: 01/05/18 09:35 Dose: 10 meq Ropinirole HCl (Requip -) 0.25 mg PO BID [facility] Last Admin: 01/05/18 21:29 Dose: 0.25 mg Valsartan (Diovan -) 320 mg PO BID [facility] Last Admin: 01/05/18 21:29 Dose: 320 mg Physical Examination Vital Signs Temperature 97.7 F 01/06/18 05:00 Pulse Rate 81 01/06/18 05:00 Respiratory Rate 20 01/06/18 05:00 Blood Pressure 142/64 01/06/18 05:00 O2 Sat by Pulse Oximetry (%) 95 01/06/18 03:00 Constitutional: Yes: Well Nourished, Anxious, Obese Eyes: Yes: WNL, Conjunctiva Clear, EOM Intact, PERRL HENT: Yes: WNL, Atraumatic, Normocephalic Neck: Yes: WNL, Supple, Trachea Midline Cardiovascular: Yes: Regular Rate and Rhythm, Murmur, S1, S2 Respiratory: Yes: WNL, Regular, CTA Bilaterally Gastrointestinal: Yes: Normal Bowel Sounds, Soft, Abdomen, Obese Renal/: Yes: WNL Breast(s): Yes: WNL Musculoskeletal: Yes: WNL Extremities: Yes: WNL Edema: Yes Edema: LLE: Trace, RLE: Trace Peripheral Pulses WNL: Yes Integumentary: Yes: Bruising (right medial leg, left anterior leg) Neurological: CN intact, no slurred speech, sensory normal, strength equal, finger to nose intact, gait deferred CBCD WBC 12.6 K/mm3 (4.0-10.0) H 01/06/18 06:30 RBC 4.02 M/mm3 (3.60-5.2) 01/06/18 06:30 Hgb 10.0 GM/dL (10.7-15.3) L 01/06/18 06:30 Hct 31.3 % (32.4-45.2) L 01/06/18 06:30 MCV 77.9 fl (80-96) L 01/06/18 06:30 MCHC 32.1 g/dl (32.0-36.0) 01/06/18 06:30 RDW 16.8 % (11.6-15.6) H 01/06/18 06:30 Plt Count 292 K/MM3 (134-434) 01/06/18 06:30 MPV 8.8 fl (7.5-11.1) 01/06/18 06:30 CMP Sodium 144 mmol/L (136-145) 01/05/18 06:25 Potassium 4.1 mmol/L (3.5-5.1) 01/05/18 06:25 Chloride 110 mmol/L (98-107) H 01/05/18 06:25 Carbon Dioxide 25 mmol/L (21-32) 01/05/18 06:25 Anion Gap 9 (8-16) 01/05/18 06:25 BUN 40 mg/dL (7-18) H 01/05/18 06:25 Creatinine 1.1 mg/dL (0.55-1.02) H 01/05/18 06:25 Creat Clearance w eGFR 47.32 (>60) 01/02/18 20:53 Calcium 9.0 mg/dL (8.5-10.1) 01/05/18 06:25 Total Bilirubin 0.3 mg/dL (0.2-1.0) D 01/02/18 20:53 AST 36 U/L (15-37) 01/02/18 20:53 ALT 34 U/L (12-78) 01/02/18 20:53 Alkaline Phosphatase 108 U/L (45-117) 01/02/18 20:53 Total Protein 6.1 g/dl (6.4-8.2) L 01/02/18 20:53 Albumin 3.5 g/dl (3.4-5.0) 01/02/18 20:53 Plan: 82 y/o woman with a significant medical history of CAD (Stents x2) PCI 2007 (LAD ), COPD, LE Edema/Venous Insufficiency who presented to the ED with dyspnea on rest, chronic leg weakness, and I was consulted for ongoing restless sensations in her b/l LE. Patient reported presented with SOB and dyspnea along with non- productive cough that is being acutely managed. She reports leg sensation and urges to move with b/l shaking that I visualized. Occurs particularly at night. Underlying RLS though with some anxiety that precipitates her symptoms. Started on Ropinerole, has been helpful and reports improved symptoms. Can continue as outpatient. Continue blood pressure control for stroke prevention. Continue levothyroxine for thyroid, monitor TSH as hyperthyroid could also precipitate symptoms. Relaxation recommended for anxiety. Accepted to [facility], no further recommendations at this time.
[2018-01-06 09:47] VITALS: BP 125/55; PULSE 94; TEMP 97.6
[2018-01-06] MEDS ORDERED: PT OWN MED DRAWER 7, Y5N ONE (09:51)
[2018-01-06] MEDS: hydrALAZINE HCL 50 MG TABLET (FP) PO SCH (09:54)
[2018-01-06] MEDS: ASPIRIN 81 MG CHEWABLE TABLETS PO SCH (09:54)
[2018-01-06] MEDS: VALSARTAN 160 MG TABLET (UD) PO SCH (09:55)
[2018-01-06] MEDS: POTASSIUM CHLORIDE TABS 10 MEQ TABLET.ER (FP) PO SCH (09:55)
[2018-01-06] MEDS: FLUTICASONE PROP 0.05% 16 GM NASAL SPRAY NS SCH (09:55)
[2018-01-06] MEDS: CYANOCOBALAMIN 1,000 MCG TABLET (FP) PO SCH (09:56)
[2018-01-06] MEDS: rOPINIRole HCL 0.25 MG TABLET PO SCH (09:56)
[2018-01-06] MEDS: PANTOPRAZOLE 40 MG TABLET (FP) PO SCH (09:56)
[2018-01-06] MEDS: ESCITALOPRAM OXALATE 20 MG TABLET (FP) PO SCH (09:56)
[2018-01-06] MEDS: CHOLECALCIFEROL (VITAMIN D3) 1,000 UNIT TABLET (FP) PO SCH (09:57)
[2018-01-06] MEDS ORDERED: FUROSEMIDE 40 MG TABLET (FP) PO SCH (10:00)
--- NOTE | 2018-01-06 10:00 | PN ---
Progress Note (short form) - Note Progress Note: PULMONARY States breathing is much improved but still some dyspnea with exertion. Last Vital Signs Temp Pulse Resp BP Pulse Ox 97.6 F 94 H 20 125/55 95 01/06/18 09:46 01/06/18 09:46 01/06/18 09:46 01/06/18 09:46 01/06/18 03:00 Gen: less tachypneic Heart: RRR Lung: upper airway wheezes Abd: soft, nontender Ext: no edema CBC, BMP 01/06/18 06:30 01/06/18 06:30 Active Medications Acetaminophen (Tylenol -) 650 mg PO Q4H PRN PRN Reason: FEVER Albuterol/Ipratropium (Duoneb -) 1 amp NEB RQID [facility] Last Admin: 01/06/18 08:37 Dose: 1 amp Aspirin (Asa -) 81 mg PO DAILY [facility] Last Admin: 01/06/18 09:54 Dose: 81 mg Atorvastatin Calcium (Lipitor -) 40 mg PO HS [facility] Last Admin: 01/05/18 21:29 Dose: 40 mg Cholecalciferol (Vitamin D3 -) 2,000 unit PO DAILY [facility] Last Admin: 01/06/18 09:57 Dose: 2,000 unit Cyanocobalamin (Vitamin B12 -) 1,000 mcg PO DAILY [facility] Last Admin: 01/06/18 09:56 Dose: 1,000 mcg Escitalopram Oxalate (Lexapro -) 20 mg PO DAILY [facility] Last Admin: 01/06/18 09:56 Dose: 20 mg Fluticasone Propionate (Flonase -) 1 spray NS BID [facility] Last Admin: 01/06/18 09:55 Dose: 1 spray Furosemide (Lasix -) 40 mg PO DAILY [facility] Last Admin: 01/06/18 09:55 Dose: 40 mg Hydralazine HCl (Apresoline -) 50 mg PO BID [facility] Last Admin: 01/06/18 09:54 Dose: 50 mg Levothyroxine Sodium 112 mcg/ (Levothyroxine Sodium 25 mcg) 137 mcg PO DAILY@ 0700 [facility] Last Admin: 01/06/18 06:01 Dose: 137 mcg Methylprednisolone Sodium Succinate (Solu-Medrol -) 40 mg IVPUSH Q8H-IV [facility] Last Admin: 01/06/18 09:56 Dose: 40 mg Pantoprazole Sodium (Protonix -) 40 mg PO BID [facility] Last Admin: 01/06/18 09:56 Dose: 40 mg Potassium Chloride (K-Dur -) 10 meq PO DAILY [facility] Last Admin: 01/06/18 09:55 Dose: 10 meq Ropinirole HCl (Requip -) 0.25 mg PO BID [facility] Last Admin: 01/06/18 09:56 Dose: 0.25 mg Valsartan (Diovan -) 320 mg PO BID [facility] Last Admin: 01/06/18 09:55 Dose: 320 mg A/P Acute COPD Exacerbation LV Diastolic Dysfunction Mild Pulmonary HTN CAD HTN Hyperlipidemia Anxiety - can change steroids to PO prednisone - inhaled bronchodilators - O2 as needed - continue cardiac meds - DVT prophylaxis - agree with [facility] placement
--- NOTE | 2018-01-06 12:13 | DS ---
Physical Examination Vital Signs: Vital Signs Temperature 36.4 C 01/06/18 09:46 Pulse Rate 94 H 01/06/18 09:46 Respiratory Rate 20 01/06/18 09:46 Blood Pressure 125/55 01/06/18 09:46 O2 Sat by Pulse Oximetry (%) 94 L 01/06/18 11:00 Constitutional: Yes: Well Nourished, No Distress, Calm Cardiovascular: Yes: Regular Rate and Rhythm. No: Gallop, Murmur, Rub Respiratory: Yes: Regular, CTA Bilaterally. No: Rales, Rhonchi, Wheezes Gastrointestinal: Yes: Normal Bowel Sounds, Soft. No: Distention, Tenderness Extremities: Yes: WNL Edema: No Labs: CBC, BMP 01/06/18 06:30 01/06/18 06:30 Discharge Summary Reason For Visit: CORONARY ARTERY DISEASE/DYSPNEA Current Active Problems Dyspnea (Acute) Restless leg syndrome (Acute) Hospital Course: (1) COPD (chronic obstructive pulmonary disease) Code(s): J44.9 - CHRONIC OBSTRUCTIVE PULMONARY DISEASE, UNSPECIFIED Qualifiers: (2) Congestive cardiac failure Code(s): I50.9 - HEART FAILURE, UNSPECIFIED Qualifiers: Qualified Code(s): I50.32 - Chronic diastolic (congestive) heart failure (3) Dyspnea Code(s): R06.00 - DYSPNEA, UNSPECIFIED Qualifiers: Dyspnea type: shortness of breath Qualified Code(s): R06.02 - Shortness of breath; R06.00 - Dyspnea, unspecified; R06.01 - Orthopnea (4) Hyperlipidemia Code(s): E78.5 - HYPERLIPIDEMIA, UNSPECIFIED (5) Hypertension Code(s): I10 - ESSENTIAL (PRIMARY) HYPERTENSION Qualifiers: Hypertension type: essential hypertension Qualified Code(s): I10 - Essential (primary) hypertension (6) Hypothyroid Code(s): E03.9 - HYPOTHYROIDISM, UNSPECIFIED Qualifiers: Ms Dorantes is a pleasant 82 year old female who comes in with COPD exacerbation. She was admitted to the hospital and seen by pulmonary and cardiology who felt it was more COPD. She was started on duonebs and solumedrol. She improved significantly. She is safe to transition over to a prednisone taper and stable for discharge to SNF. 34 minutes spent in preparation of this discharge Condition: Stable - Instructions Diet, Activity, Other Instructions: sodium controlled diet. Up with assistance, further activity per PT at [facility]. Prednisone taper: Taper over 12 days - Take 12 tablets by mouth on Day #1 then decrease by 1 tablet daily. Referrals: Darell Claire MD [Staff Physician] - Momo Goodrich MD [Staff Physician] - Adelfo Palacios MD [Staff Physician] - Eren Davidson MD [Staff Physician] - [facility]position[facility] - Home Medications Comprehensive Discharge Medication List: Ambulatory Orders Aspirin 81 mg PO DAILY 01/02/18 Atorvastatin Ca [Lipitor] 40 mg PO HS 01/02/18 Cyanocobalamin [Vitamin B12 -] 1,000 mcg PO DAILY 01/02/18 Ergocalciferol (Vitamin D2) [Vitamin D2] 2,000 unit PO DAILY 01/02/18 Escitalopram Oxalate [Lexapro -] 20 mg PO DAILY 01/02/18 Fluticasone Furoate [Flonase Sensimist] 9.9 ml NS BID 01/02/18 Furosemide 20 mg PO DAILY 01/02/18 Hydralazine HCl 50 mg PO BID 01/02/18 Levothyroxine Sodium [Levoxyl] 137 mcg PO DAILY 01/02/18 Pantoprazole Sodium 40 mg PO BID 01/02/18 Polyethylene Glycol 3350 [Miralax 119 gm Btl -] 17 gm PO DAILY 01/02/18 Potassium Chloride [Klor-Con 8] 8 meq PO DAILY 01/02/18 Valsartan 320 mg PO BID 01/02/18 Albuterol 2.5/Ipratropium 0.5 [Duoneb -] 1 amp NEB RQID amp 01/06/18 Ropinirole HCl [Requip -] 0.25 mg PO BID tablet 01/06/18 predniSONE [Deltasone -] 5 mg PO ASDIR #78 tab 01/06/18
[2018-01-07] MEDS ORDERED: predniSONE 20 MG TABLET (UD) PO SCH (10:00)
== END 2018-01-06 15:04 | DRG 191 ==
LOC: JER 20:20 → JERBED 23:45 → UNDOADMOB 23:57 → JERBED 23:57 → J8W 01-03 19:10 → OBSVTOIN 01-04 10:34
PROVIDERS: ADMIT Internal Medicine; ATTEND Internal Medicine
DX: J44.1 Chronic obstructive pulmonary disease with (acute) exacerbation (principal); I50.32 Chronic diastolic (congestive) heart failure; I11.0 Hypertensive heart disease with heart failure; I25.10 Atherosclerotic heart disease of native coronary artery without angina pectoris; Z98.61 Coronary angioplasty status; I87.2 Venous insufficiency (chronic) (peripheral); G25.81 Restless legs syndrome; E78.5 Hyperlipidemia, unspecified; E03.9 Hypothyroidism, unspecified; I27.20 Pulmonary hypertension, unspecified; F41.9 Anxiety disorder, unspecified; D64.9 Anemia, unspecified
CPT/HCPCS: 36415; 71045-TC-FY; 71260-TC; 80048; 80053; 81003; 81015; 82550; 82553; 83735; 83880; 84100; 84439; 84443; 84484; 85025; 85610; 87086; 87186; 93005; 93010; 94010; 94640; 97116-GP; 97161-GP; 99285-25; G0378

== ENCOUNTER 2018-01-28 12:05 | Inpatient (IN) | payer OTHER, BC ==
[2018-01-28 12:11] VITALS: BMI 30.2
--- NOTE | 2018-01-28 12:47 | PDOC ---
History of Present Illness - General History Source: Patient Exam Limitations: No Limitations - History of Present Illness Initial Comments: This is an 82 YOF with h/o diverticulitis (5 years ago), cholecystectomy, hysterectomy, COPD (last admitted 01/02-01/06/18 for COPD exacerbation, was subsequently on prednisone taper), CHF, CAD (s/p 2 stents and balloon angioblasty), and HTN who p/w lower abdominal pain and shortness of breath. She notes that the pain has been worsening for past day and is 5/10 now, feels like pressure, and is diffuse in the lower abdomen but otherwise does not radiate. She has had associated constipation with last BM 2-3 days ago which was a thin string of stool, but not black or bloody. She cannot recall having passed any stool in the past few days. She additionally is nauseated but has not had vomiting, fever, chills, night sweats, chest pain, burning on urination, or other symptoms. She is eating and drinking normally. She has lost about 10 lbs in the past few months but attributes this to her water pill. <Laurel Gomez - Last Filed: 02/21/18 18:03> <Zelalem Shaw - Last Filed: 02/25/18 10:27> - General Chief Complaint: Shortness of Breath Stated Complaint: Shortness of Breath Time Seen by Provider: 01/28/18 12:16 Past History - Past Medical History Anemia: No Asthma: No Cancer: No Cardiac Disorders: Yes (CARDIAC STENTS) CVA: No COPD: Yes CHF: Yes Dementia: No Diabetes: No GI Disorders: Yes (ACID REFLUX) Disorders: No HTN: Yes Hypercholesterolemia: Yes Liver Disease: No Seizures: No Thyroid Disease: Yes (thyroidectomy) - Surgical History Abdominal Surgery: No Appendectomy: No Cardiac Surgery: Yes (2 CARDIAC [id number]) Cholecystectomy: Yes Lung Surgery: No Neurologic Surgery: No Orthopedic Surgery: Yes (RIGHT KNEE ARTHROSCOPY) - Suicide/Smoking/Psychosocial Hx Smoking History: Never smoked Have you smoked in the past 12 months: No Number of Cigarettes Smoked Daily: 0 Information on smoking cessation initiated: No Hx Alcohol Use: No Drug/Substance Use Hx: No Substance Use Type: None Hx Substance Use Treatment: No <Laurel Gomez - Last Filed: 02/21/18 18:03> <Zelalem Shaw - Last Filed: 02/25/18 10:27> - Past Medical History Allergies/Adverse Reactions: Allergies Allergy/AdvReac Type Severity Reaction Status Date / Time codeine [Codeine] Allergy Verified 01/28/18 12:07 Iodinated Contrast- Oral and Allergy Verified 01/28/18 17:31 IV Dye meperidine HCl [From Demerol] Allergy Verified 01/28/18 12:07 Home Medications: Ambulatory Orders Aspirin 81 mg PO DAILY 01/02/18 Atorvastatin Ca [Lipitor] 40 mg PO HS 01/02/18 Cyanocobalamin [Vitamin B12 -] 1,000 mcg PO DAILY 01/02/18 Escitalopram Oxalate [Lexapro -] 20 mg PO DAILY 01/02/18 Fluticasone Furoate [Flonase Sensimist] 9.9 ml NS BID 01/02/18 Furosemide 20 mg PO DAILY 01/02/18 Hydralazine HCl 50 mg PO TID 01/02/18 Levothyroxine Sodium [Levoxyl] 137 mcg PO ACBK 01/02/18 Pantoprazole Sodium 40 mg PO BID 01/02/18 Polyethylene Glycol 3350 [Miralax 119 gm Btl -] 17 gm PO DAILY 01/02/18 Valsartan 320 mg PO DAILY 01/02/18 Ropinirole HCl [Requip -] 0.25 mg PO BID tablet 01/06/18 Amlodipine Besylate [Norvasc -] 5 mg PO DAILY 01/28/18 Cholecalciferol (Vitamin D3) [Vitamin D3] 2,000 unit PO DAILY 01/28/18 Potassium Chloride [K-Dur -] 20 meq PO DAILY 01/28/18 Cefuroxime Axetil [Ceftin -] 500 mg PO BID 2 Days tablet 02/01/18 Review of Systems - Review of Systems Able to Perform ROS?: Yes Constitutional: No: Chills, Fever, Unexplained wgt Loss HEENTM: No: Nose Congestion, Throat Pain Respiratory: Yes: Shortness of Breath. No: Cough, Orthopnea Cardiac (ROS): No: Chest Pain, Palpitations ABD/GI: Yes: Constipated, Nausea, Other (abdominal pain). No: Vomiting : No: Burning, Dysuria Musculoskeletal: No: Back Pain, Neck Pain Integumentary: No: Bruising, Rash Neurological: No: Headache, Numbness, Tingling, Weakness, Dizziness Endocrine: No: Unexplained Weight Gain, Unexplained Weight Loss <Laurel Gomez - Last Filed: 02/21/18 18:03> *Physical Exam - Vital Signs Last Vital Signs Temp Pulse Resp BP Pulse Ox 97.6 F 75 18 144/60 100 01/28/18 12:09 01/28/18 12:09 01/28/18 12:09 01/28/18 12:09 01/28/18 12:09 - Physical Exam General Appearance: Yes: Nourished, Appropriately Dressed, Other (pleasant elderly female who is a/o x4 and answering questions appropriately and appears in mild distress) HEENT: positive: EOMI, MORENA, Normal Voice, Hearing Grossly Normal. negative: Scleral Icterus (R), Scleral Icterus (L), Nasal Congestion Neck: positive: Trachea midline, Supple. negative: Tender, Rigid Respiratory/Chest: positive: Lungs Clear, Normal Breath Sounds, Other (diffuse decreased breath sounds). negative: Respiratory Distress, Crackles, Rhonchi, Stridor, Wheezing Cardiovascular: positive: Regular Rhythm, Regular Rate, S1, S2, Murmur (1/6 systolic ejection murmur). negative: Edema, JVD Gastrointestinal/Abdominal: positive: Normal Bowel Sounds, Tender (moderate suprapubic and RLQ ttp including but not isolated to McBurney's point, mild involuntary guarding), Soft. negative: Organomegaly, Pulsatile Mass, Guarding Musculoskeletal: positive: Normal Inspection. negative: Decreased Range of Motion, Vertebral Tenderness Extremity: positive: Normal Capillary Refill, Normal Inspection, Normal Range of Motion. negative: Tender, Cyanosis Integumentary: positive: Normal Color, Dry, Warm. negative: Erythema, Rash, Bruising Neurologic: positive: fourdrinier wire weaver II-XII NML intact (grossly), Fully Oriented, Alert, Normal Mood/Affect, Normal Response, Motor Strength 5/5. negative: Confused, Disoriented <Laurel Gomez - Last Filed: 02/21/18 18:03> - Vital Signs Last Vital Signs Temp Pulse Resp BP Pulse Ox 97.8 F 68 18 138/51 91 L 02/01/18 15:00 02/01/18 15:00 02/01/18 15:00 02/01/18 15:00 02/01/18 09:00 <Zelalem Shaw - Last Filed: 02/25/18 10:27> Heart Score/ECG Review #1 ECG reviewed & interpreted by me at: 13:56 01/28/18 12:51 NSR, rate of 68, normal EKG <Laurel Gomez - Last Filed: 02/21/18 18:03> ED Treatment Course - LABORATORY CBC & Chemistry Diagram: 01/31/18 12:15 01/31/18 12:15 - RADIOLOGY Radiology Studies Ordered: Category Date Time Status ABDOMEN & PELVIS CT WITH CONTR [CT] Stat CT Scan 01/28/18 12:38 Ordered CHEST X-RAY PORTABLE* [RAD] Stat Radiology 01/28/18 12:29 Ordered <Laurel Gomez - Last Filed: 02/21/18 18:03> - LABORATORY CBC & Chemistry Diagram: 01/31/18 12:15 01/31/18 12:15 - ADDITIONAL ORDERS Additional order review: 01/28/18 12:29 Blood Culture - Final Blood - Peripheral Venous NO GROWTH AFTER 5 DAYS INCUBATION 01/28/18 12:29 Blood Culture - Final Blood - Peripheral Venous NO GROWTH AFTER 5 DAYS INCUBATION 01/28/18 13:14 Urine Culture - Final Urine - Urine Clean Catch Enterococcus Faecalis 01/28/18 13:14 RBC 3.98 MCV 78.8 L MCHC 32.8 RDW 18.1 H MPV 8.1 Neutrophils % 72.9 D Lymphocytes % 13.3 D Monocytes % 10.9 H D Eosinophils % 2.2 D Basophils % 0.7 D - Medications Given in the ED: ED Medications Discontinued Medications Generic Name Dose Route Start Last Admin Trade Name Freq PRN Reason Stop Dose Admin Acetaminophen 1,000 mg 01/28/18 12:54 01/28/18 14:10 Ofirmev Injection - IVPB 01/28/18 12:55 1,000 mg ONCE ONE Administration Albuterol/Ipratropium 1 amp 01/28/18 20:00 01/28/18 20:50 Duoneb - NEB Not Given RQID HUNTER Albuterol/Ipratropium 1 amp 01/30/18 16:00 02/01/18 15:36 Duoneb - NEB Not Given RQID HUNTER Amlodipine Besylate 5 mg 01/28/18 22:00 01/31/18 22:33 Norvasc - PO 5 mg HS HUNTER Administration Aspirin 81 mg 01/29/18 10:00 02/01/18 10:45 Asa - PO 81 mg DAILY HUNTER Administration Atorvastatin Calcium 40 mg 01/28/18 22:00 01/31/18 22:33 Lipitor - PO 40 mg HS HUNTER Administration Cefuroxime Axetil 500 mg 01/31/18 22:00 02/01/18 10:46 Ceftin - PO 500 mg BID HUNTER Administration Cholecalciferol 2,000 unit 01/29/18 10:00 02/01/18 10:44 Vitamin D3 - PO 2,000 unit DAILY HUNTER Administration Cyanocobalamin 1,000 mcg 01/29/18 10:00 02/01/18 10:44 Vitamin B12 - PO 1,000 mcg DAILY HUNTER Administration Enoxaparin Sodium 40 mg 01/30/18 10:00 02/01/18 10:44 Lovenox - SQ 40 mg DAILY HUNTER Administration Escitalopram Oxalate 20 mg 01/29/18 10:00 02/01/18 10:45 Lexapro - PO 20 mg DAILY HUNTER Administration Fluticasone Propionate 1 spray 01/28/18 22:00 02/01/18 10:46 Flonase - NS 1 spray DAILY HUNTER Administration Furosemide 20 mg 01/29/18 10:00 01/30/18 09:45 Lasix - PO 20 mg DAILY HUNTER Administration Furosemide 20 mg 01/31/18 14:45 02/01/18 10:45 Lasix - PO 20 mg DAILY HUNTER Administration Hydralazine HCl 50 mg 01/28/18 22:00 02/01/18 13:27 Apresoline - PO 50 mg TID HUNTER Administration Azithromycin 500 mg/ Dextrose 250 mls @ 250 mls/hr 01/28/18 13:32 01/28/18 15 :33 IVPB 01/28/18 14:31 250 mls/hr ONCE ONE Administration Ceftriaxone Sodium 1,000 mg/ 50 mls @ 100 mls/hr 01/28/18 13:32 01/28/18 14: 10 Dextrose IVPB 01/28/18 14:01 100 mls/hr ONCE ONE Administration Vancomycin HCl 1,000 mg/ 250 mls @ 166.667 mls/hr 01/28/18 17:15 01/28/18 20: 15 Dextrose IVPB 01/28/18 18:44 166.667 mls/hr ONCE ONE Administration Protocol Piperacillin Sod/Tazobactam 50 mls @ 100 mls/hr 01/28/18 17:00 01/28/18 18:47 Sod 3.375 gm/ Dextrose IVPB 01/28/18 17:29 100 mls/hr ONCE ONE Administration Protocol Cefepime HCl 1 gm/ Dextrose 50 mls @ 100 mls/hr 01/29/18 10:00 01/30/18 09:45 IVPB 100 mls/hr Q8H-IV HUNTER Administration Protocol Cefepime HCl 1 gm in 50 mls @ 100 mls/hr 01/30/18 10:47 01/31/18 10:41 Maxipime 1 Gm Premix Ivpb IVPB 100 mls/hr Q8H-IV HUNTER Administration Protocol Sodium Chloride 500 mls @ 500 mls/hr 01/30/18 15:38 01/30/18 16:54 Normal Saline - IV 01/30/18 16:37 500 mls/hr ASDIR STA Administration Levothyroxine Sodium 25 mcg/ 137 mcg 01/29/18 07:00 02/01/18 06:11 Levothyroxine Sodium 112 mcg PO 137 mcg DAILY@0700 HUNTER Administration Methylprednisolone Sodium Succinate 125 mg 01/28/18 12:59 01/28/18 14:11 Solu-Medrol - IVPB 01/28/18 13:00 125 mg ONCE ONE Administration Ondansetron HCl 4 mg 01/28/18 12:54 01/28/18 14:11 Zofran Injection IVPUSH 01/28/18 12:55 4 mg NOW ONE Administration Pantoprazole Sodium 40 mg 01/28/18 22:00 02/01/18 10:45 Protonix - PO 40 mg BID HUNTER Administration Polyethylene Glycol 17 gm 01/28/18 22:00 02/01/18 10:46 Miralax (For Daily Use) - PO Not Given BID HUNTER Potassium Chloride 40 meq 02/01/18 09:20 02/01/18 10:44 K-Dur - PO 02/01/18 09:21 40 meq ONCE ONE Administration Ropinirole HCl 0.25 mg 01/28/18 22:00 02/01/18 10:45 Requip - PO 0.25 mg BID HUNTER Administration Senna 2 tab 01/28/18 22:00 01/31/18 22:33 Senna - PO 2 tab HS HUNTER Administration Valsartan 320 mg 01/29/18 10:00 02/01/18 10:44 Diovan - PO 320 mg DAILY HUNTER Administration <Zelalem Shaw - Last Filed: 02/25/18 10:27> Medical Decision Making - Medical Decision Making Adult female patient p/w suprapubic/pelvic pain. Initial Vital Signs Temp Pulse Resp BP Pulse Ox 97.6 F 75 18 144/60 100 01/28/18 12:09 01/28/18 12:09 01/28/18 12:09 01/28/18 12:09 01/28/18 12:09 Exam: a/o x4, mild distress, 1/6 systolic ejection murmur, diffuse poor air movement, suprapubic and RLQ ttp. DDX IBNLT: diverticulitis wwo abscess or perforation, colitis, SBO, bowel ischemia, bowel perforation, appendicitis, constipation, UTI/pyelonephritis, renal colic, malignancy, etc. Also DDX for SOB IBNLT COPD exacerbation, bronchitis/PNA, CHF, etc. W/U ordered: CBCD CMP Mg Phos Coags T&S UA UCx Lactate BCx CXR EKG CT A/P wo IV Contrast (d/t contrast allergy), FOBT TX ordered: IVF, Zofran, Ofirmev, DuoNeb, SoluMedrol Most likely diverticulitis or SBO, SOB is possibly COPD or CHF exacerbation wwo bronchitis/PNA. Unlikely diverticulitis as patient has no known h/o diverticulosis/ diverticulitis. Unlikely colitis as clinically pts abdomen is not distended/no ascites, no fever, other VS wnl. Unlikely SBO as patient has been passing stool and gas normally per their baseline. Unlikely mesenteric ischemia as patient has no known A-fib or coagulopathy, no pain out of proportion. Unlikely bowel perforation as patient does not appear to have acute abdomen, no peritoneal signs. Unlikely appendicitis as pt has no fever, RLQ or umbilical abdominal pain, or anorexia. Unlikely UTI/pyelonephritis as patient has no dysuria, strange colors/smells, no h/o recurrent UTI. Unlikely renal stone as patient notes no clinical hematuria, has no CVA ttp. Unlikely malignancy as patient has no palpable mass, no reported recent B symptoms. Laboratory Tests 01/28/18 01/28/18 01/28/18 13:14 13:14 13:14 WBC 9.9 RBC 3.98 Hgb 10.3 L Hct 31.4 L MCV 78.8 L MCH 25.8 MCHC 32.8 RDW 18.1 H Plt Count 240 MPV 8.1 Neutrophils % 72.9 D Lymphocytes % 13.3 D Monocytes % 10.9 H D Eosinophils % 2.2 D Basophils % 0.7 D PT with INR 11.40 INR 1.01 PTT (Actin FS) 29.5 VBG pH POC VBG pCO2 POC VBG pO2 Mixed VBG HCO3 Urine Color Ltyellow Urine Appearance Clear Urine pH 5.0 Ur Specific [place] 1.014 Urine Protein Negative Urine Glucose (UA) Negative Urine Ketones Negative Urine Blood Negative Urine Nitrite Negative Urine Bilirubin Negative Urine Urobilinogen Negative Ur Leukocyte Esterase Negative 01/28/18 13:14 WBC RBC Hgb Hct MCV MCH MCHC RDW Plt Count MPV Neutrophils % Lymphocytes % Monocytes % Eosinophils % Basophils % PT with INR INR PTT (Actin FS) VBG pH 7.39 POC VBG pCO2 42.7 POC VBG pO2 22.9 L D Mixed VBG HCO3 25.7 H Urine Color Urine Appearance Urine pH Ur Specific [place] Urine Protein Urine Glucose (UA) Urine Ketones Urine Blood Urine Nitrite Urine Bilirubin Urine Urobilinogen Ur Leukocyte Esterase EKG: NSR, rate of 68, normal EKG CXR: Retrocardiac consolidation possible PNA. The patients symptoms persist despite ED treatments. She has PNA with CURB-65 of 2 (9.2% mortality). The patient is unsafe for discharge at this time. They require further hospital observation, workup, and treatment. Spoke Dr. Shaw spoke with Dr. Shelby, in agreement patient to be admitted to Inpatient Med/Surg. Decision to Admit order placed to Dr. Shelby. <Laurel Gomez - Last Filed: 02/21/18 18:03> *DC/Admit/Observation/Transfer - Discharge Dispostion Decision to Admit order: Yes <Laurel Gomez - Last Filed: 02/21/18 18:03> <Zelalem Shaw - Last Filed: 02/25/18 10:27> Diagnosis at time of Disposition: COPD (chronic obstructive pulmonary disease) Pneumonia Qualifiers: Pneumonia type: due to unspecified organism Laterality: unspecified laterality Lung location: unspecified part of lung Qualified Code(s): J18.9 - Pneumonia, unspecified organism - Discharge Dispostion Disposition: NURSING HOME FACILITY Condition at time of disposition: Guarded
[2018-01-28] MEDS ORDERED: ONDANSETRON 4 MG/2 ML VIAL IVPUSH ONE (12:54)
[2018-01-28] MEDS ORDERED: ACETAMINOPHEN 1000 MG/100 ML VIAL (NON FORMULARY) IVPB ONE (12:54)
[2018-01-28] MEDS ORDERED: methylPREDNISolone NA SUCC 125 MG/2 ML VIAL IVPB ONE (12:59)
[2018-01-28 13:25] LABS: BASO % 0.7 % (0-2.0); EOS % 2.2 % (0-4.5); HEMATOCRIT 31.4 % (32.4-45.2); HEMOGLOBIN 10.3 GM/dL (10.7-15.3); LYMPH % 13.3 % (8-40); MCH 25.8 pg (25.7-33.7); MCHC 32.8 g/dl (32.0-36.0); MEAN CELL VOLUME 78.8 fl (80-96); MEAN PLT VOLUME 8.1 fl (7.5-11.1); MONO % 10.9 % (3.8-10.2); NEUT % 72.9 % (42.8-82.8); PLATELET COUNT 240 K/MM3 (134-434); RBC 3.98 M/mm3 (3.60-5.2); RDW 18.1 % (11.6-15.6); WHITE BLOOD COUNT 9.9 K/mm3 (4.0-10.0)
[2018-01-28] MEDS ORDERED: AZITHROMYCIN IVPB 500 MG in DEXTROSE 5%-WATER - 250 ML IVPB ONE (13:32)
[2018-01-28] MEDS ORDERED: CEFTRIAXONE 1,000 MG in DEXTROSE 5%-WATER - 50 ML IVPB ONE (13:32)
[2018-01-28 13:33] LABS: URINE APPEARANCE CLEAR; URINE BILIRUBIN NEGATIVE (<2.0 mg/dL); URINE BLOOD NEGATIVE (NEGATIVE); URINE COLOR LTYELLOW; URINE GLUCOSE (UA) NEGATIVE (NEGATIVE); URINE KETONE NEGATIVE (NEGATIVE); URINE LEUK ESTERASE NEGATIVE (NEGATIVE); URINE NITRITE NEGATIVE (NEGATIVE); URINE PROTEIN NEGATIVE (NEGATIVE); URINE UROBILINOGEN NEGATIVE mg/dL (0.2-1.0)
--- NOTE | 2018-01-28 13:34 | PDOC ---
Attending Attestation - Resident Resident Name: Gomez,Mary - ED Attending Attestation I have performed the following: I have examined & evaluated the patient, The case was reviewed & discussed with the resident, I agree w/resident's findings & plan, Exceptions are as noted - HPI HPI: 01/28/18 13:33 82-year-old female with history of diverticulitis, cholecystectomy, hysterectomy , COPD, CHF, coronary disease, 2 stents, hypertension presents with lower abdominal pain and shortness of breath. Patient reports one week of shortness of breath and wheezing. Has endorsed greenish productive cough but no fevers or chills. Since yesterday, developed diffuse lower abdominal pain consistent with her prior diverticulitis. Denies dysuria, diarrhea. - Physicial Exam PE: 01/28/18 13:33 GENERAL: Awake, alert, and fully oriented, in no acute distress. HEAD: No signs of trauma EYES: PERRLA, EOMI, sclera anicteric, conjunctiva clear ENT: Auricles normal inspection, hearing grossly normal, nares patent, NECK: Normal ROM, supple LUNGS: Tight breath sounds b/l on expiration. HEART: Regular rate and rhythm, normal S1 and S2, no murmurs, rubs or gallops ABDOMEN: TTP LLQ and RLQ. Soft, No guarding, no rebound. No masses EXTREMITIES: Normal range of motion, no edema. No clubbing or cyanosis. No cords, erythema, or tenderness NEUROLOGICAL: Cranial nerves II through XII grossly intact. Normal speech SKIN: Warm, Dry, normal turgor, no rashes or lesions noted. - Medical Decision Making 01/28/18 13:34 Vital Signs Temp Pulse Resp BP Pulse Ox 97.6 F 75 18 144/60 100 01/28/18 12:09 01/28/18 12:09 01/28/18 12:09 01/28/18 12:09 01/28/18 12:09 Patient's findings are consistent with COPD exacerbation with pneumonia. We'll give antibiotic to include ceftriaxone and azithromycin. We'll need to rule out diverticulitis with a CAT scan the abdomen pelvis. Labs, urine analysis. Ultimately, the patient should be admitted to the hospital for further evaluation and management. Heart Score/ECG Review #1 ECG reviewed & interpreted by me at: 12:15 01/28/18 13:55 NSR 68, no std/jessica ,T wave flat III, normal axis, normal intervals, QTC 455 msec
[2018-01-28] MEDS ORDERED: ACETAMINOPHEN INJECTION 100 ML IVPB ONE (13:45)
[2018-01-28] MEDS ORDERED: methylPREDNISolone NA SUCC 125 MG/2 ML VIAL ONE (13:46)
[2018-01-28] MEDS ORDERED: ONDANSETRON 4 MG/2 ML VIAL ONE (13:46)
[2018-01-28] MEDS ORDERED: AZITHROMYCIN IVPB 250 ML IVPB ONE (13:46)
[2018-01-28] MEDS ORDERED: CEFTRIAXONE 1 GM/50 ML BAG ONE (13:46)
[2018-01-28 13:49] LABS: VENOUS PC02 42.7 mmHg (38-52); VENOUS PH 7.39 (7.32-7.42); VENOUS PO2 22.9 mmHg (28-48)
[2018-01-28 13:53] LABS: INR 1.01 (0.82-1.09); PROTHROMBIN TIME (PATIENT) 11.4 SEC (9.7-13.0)
[2018-01-28 13:55] LABS: ACTIVATED PTT 29.5 SECONDS (26.9-34.4)
[2018-01-28 14:10] LABS: ALBUMIN 3.3 g/dl (3.4-5.0); ANION GAP 7 (8-16); BLOOD UREA NITROGEN 24 mg/dL (7-18); CALCIUM 9.5 mg/dL (8.5-10.1); CHLORIDE 111 mmol/L (98-107); CO2 27 mmol/L (21-32); GLUCOSE,RANDOM 87 mg/dL (74-106); SGOT/AST 30 U/L (15-37); SGPT/ALT 22 U/L (12-78); SODIUM 145 mmol/L (136-145)
[2018-01-28 14:14] LABS: ALK PHOS 106 U/L (45-117); BILIRUBIN,TOTAL 0.4 mg/dL (0.2-1.0); TOT PROT 5.6 g/dl (6.4-8.2)
--- NOTE | 2018-01-28 15:48 | PDOC ---
*Physical Exam - Vital Signs Last Vital Signs Temp Pulse Resp BP Pulse Ox 97.6 F 75 18 144/60 100 01/28/18 12:09 01/28/18 12:09 01/28/18 12:09 01/28/18 12:09 01/28/18 12:09 ED Treatment Course - LABORATORY CBC & Chemistry Diagram: 01/28/18 13:14 01/28/18 13:14 - ADDITIONAL ORDERS Additional order review: Laboratory Results 01/28/18 01/28/18 01/28/18 13:14 13:14 13:14 PT with INR INR PTT (Actin FS) VBG pH 7.39 POC VBG pCO2 42.7 POC VBG pO2 22.9 L D Mixed VBG HCO3 25.7 H Sodium Potassium Chloride Carbon Dioxide Anion Gap BUN Creatinine Creat Clearance w eGFR Random Glucose Lactic Acid 1.1 Calcium Total Bilirubin AST ALT Alkaline Phosphatase Creatine Kinase CK-MB (CK-2) Troponin I < 0.02 Total Protein Albumin Urine Color Urine Appearance Urine pH Ur Specific [place] Urine Protein Urine Glucose (UA) Urine Ketones Urine Blood Urine Nitrite Urine Bilirubin Urine Urobilinogen Ur Leukocyte Esterase Blood Type Antibody Screen 01/28/18 01/28/18 01/28/18 13:14 13:14 13:14 PT with INR 11.40 INR 1.01 PTT (Actin FS) 29.5 VBG pH POC VBG pCO2 POC VBG pO2 Mixed VBG HCO3 Sodium 145 Potassium 4.0 Chloride 111 H Carbon Dioxide 27 Anion Gap 7 L BUN 24 H Creatinine 1.0 Creat Clearance w eGFR 52.82 Random Glucose 87 Lactic Acid Calcium 9.5 Total Bilirubin 0.4 D AST 30 ALT 22 Alkaline Phosphatase 106 Creatine Kinase 67 CK-MB (CK-2) 1.293 Troponin I Total Protein 5.6 L Albumin 3.3 L Urine Color Ltyellow Urine Appearance Clear Urine pH 5.0 Ur Specific [place] 1.014 Urine Protein Negative Urine Glucose (UA) Negative Urine Ketones Negative Urine Blood Negative Urine Nitrite Negative Urine Bilirubin Negative Urine Urobilinogen Negative Ur Leukocyte Esterase Negative Blood Type Antibody Screen 01/28/18 13:00 PT with INR INR PTT (Actin FS) VBG pH POC VBG pCO2 POC VBG pO2 Mixed VBG HCO3 Sodium Potassium Chloride Carbon Dioxide Anion Gap BUN Creatinine Creat Clearance w eGFR Random Glucose Lactic Acid Calcium Total Bilirubin AST ALT Alkaline Phosphatase Creatine Kinase CK-MB (CK-2) Troponin I Total Protein Albumin Urine Color Urine Appearance Urine pH Ur Specific [place] Urine Protein Urine Glucose (UA) Urine Ketones Urine Blood Urine Nitrite Urine Bilirubin Urine Urobilinogen Ur Leukocyte Esterase Blood Type A POSITIVE Antibody Screen Negative 01/28/18 13:14 RBC 3.98 MCV 78.8 L MCHC 32.8 RDW 18.1 H MPV 8.1 Neutrophils % 72.9 D Lymphocytes % 13.3 D Monocytes % 10.9 H D Eosinophils % 2.2 D Basophils % 0.7 D - Medications Given in the ED: ED Medications Discontinued Medications Generic Name Dose Route Start Last Admin Trade Name Freq PRN Reason Stop Dose Admin Acetaminophen 1,000 mg 01/28/18 12:54 01/28/18 14:10 Ofirmev Injection - IVPB 01/28/18 12:55 1,000 mg ONCE ONE Administration Azithromycin 500 mg/ Dextrose 250 mls @ 250 mls/hr 01/28/18 13:32 01/28/18 15 :33 IVPB 01/28/18 14:31 250 mls/hr ONCE ONE Administration Ceftriaxone Sodium 1,000 mg/ 50 mls @ 100 mls/hr 01/28/18 13:32 01/28/18 14: 10 Dextrose IVPB 01/28/18 14:01 100 mls/hr ONCE ONE Administration Methylprednisolone Sodium Succinate 125 mg 01/28/18 12:59 01/28/18 14:11 Solu-Medrol - IVPB 01/28/18 13:00 125 mg ONCE ONE Administration Ondansetron HCl 4 mg 01/28/18 12:54 01/28/18 14:11 Zofran Injection IVPUSH 01/28/18 12:55 4 mg NOW ONE Administration Medical Decision Making - Medical Decision Making 01/28/18 15:46 CBC, BMP 01/28/18 13:14 01/28/18 13:14 CMP Sodium 145 mmol/L (136-145) 01/28/18 13:14 Potassium 4.0 mmol/L (3.5-5.1) 01/28/18 13:14 Chloride 111 mmol/L (98-107) H 01/28/18 13:14 Carbon Dioxide 27 mmol/L (21-32) 01/28/18 13:14 Anion Gap 7 (8-16) L 01/28/18 13:14 BUN 24 mg/dL (7-18) H 01/28/18 13:14 Creatinine 1.0 mg/dL (0.55-1.02) 01/28/18 13:14 Creat Clearance w eGFR 52.82 (>60) 01/28/18 13:14 Random Glucose 87 mg/dL (74-106) 01/28/18 13:14 Lactic Acid 1.1 mmol/L (0.0-2.0) 01/28/18 13:14 Calcium 9.5 mg/dL (8.5-10.1) 01/28/18 13:14 Total Bilirubin 0.4 mg/dL (0.2-1.0) D 01/28/18 13:14 AST 30 U/L (15-37) 01/28/18 13:14 ALT 22 U/L (12-78) 01/28/18 13:14 Alkaline Phosphatase 106 U/L (45-117) 01/28/18 13:14 Creatine Kinase 67 IU/L (26-192) 01/28/18 13:14 CK-MB (CK-2) 1.293 ng/mL (0.5-3.6) 01/28/18 13:14 Troponin I < 0.02 ng/ml (0.00-0.05) 01/28/18 13:14 Total Protein 5.6 g/dl (6.4-8.2) L 01/28/18 13:14 Albumin 3.3 g/dl (3.4-5.0) L 01/28/18 13:14 Pt given IV antibiotics, steroids, and duonebs. Abdomen and pelvis CT with no acute findings. Case discussed with Dr. Shelby. Admitted to med/surg admission. Case discussed in detail with admitting physician including history, physical exam and ancillary studies. Admitting physician has assumed care for the patient, will follow all pending diagnostics and will complete the evaluation and treatment. *DC/Admit/Observation/Transfer Diagnosis at time of Disposition: COPD (chronic obstructive pulmonary disease) Pneumonia Qualifiers: Pneumonia type: due to unspecified organism Laterality: unspecified laterality Lung location: unspecified part of lung Qualified Code(s): J18.9 - Pneumonia, unspecified organism - Discharge Dispostion Condition at time of disposition: Stable Admit: Yes - Referrals Referrals: Darell Claire MD [Primary Care Provider] - - Patient Instructions - Post Discharge Activity
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
[2018-01-28] MEDS ORDERED: PIPERACILLIN/TAZOB 3.375 GM 3.375 GM in DEXTROSE 5%-WATER - 50 ML IVPB ONE (17:00)
[2018-01-28] MEDS ORDERED: VANCOMYCIN 1,000 MG in DEXTROSE 5%-WATER - 250 ML IVPB ONE (17:15)
[2018-01-28] MEDS ORDERED: ONDANSETRON 4 MG/2 ML VIAL IVPUSH PRN (17:27)
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
[2018-01-28] MEDS ORDERED: DEXTROSE 5%-WATER - 50 ML IVPB ONE (18:35)
[2018-01-28] MEDS ORDERED: PIPERACILLIN/TAZOBACTAM 3.375 GM VIAL IVPB ONE (18:35)
[2018-01-28] MEDS ORDERED: ALBUTEROL SO4 2.5/IPRATROPIUM 0.5 INH SOL 3 ML VIAL.NEB. NEB SCH (20:00)
[2018-01-28] MEDS: ATORVASTATIN CA 40 MG TABLET (FP) PO SCH (21:34)
[2018-01-28] MEDS: amLODIPine BESYLATE 5 MG TABLET (FP) PO SCH (21:34)
[2018-01-28] MEDS: rOPINIRole HCL 0.25 MG TABLET PO SCH (21:38)
[2018-01-28] MEDS: SENNOSIDES 8.6MG TABLET (FP) PO SCH (21:38)
[2018-01-28] MEDS: PANTOPRAZOLE 40 MG TABLET (FP) PO SCH (21:39)
[2018-01-28] MEDS: hydrALAZINE HCL 50 MG TABLET (FP) PO SCH (21:39)
[2018-01-28] MEDS: FLUTICASONE PROP 0.05% 16 GM NASAL SPRAY NS SCH (21:39)
[2018-01-28] MEDS: POLYETHYLENE GLYCOL 3350 119 GM BTL PO SCH (21:39)
[2018-01-28] MEDS ORDERED: PANTOPRAZOLE 40 MG TABLET (FP) PO SCH (22:00)
[2018-01-28] MEDS ORDERED: hydrALAZINE HCL 50 MG TABLET (FP) PO SCH (22:00)
[2018-01-28] MEDS ORDERED: VALSARTAN 160 MG TABLET (UD) PO SCH (22:00)
[2018-01-28] MEDS ORDERED: ALBUTEROL SO4 2.5/IPRATROPIUM 0.5 INH SOL 3 ML VIAL.NEB. NEB PRN (22:33)
[2018-01-29] MEDS ORDERED: LEVOTHYROXINE NA 25 MCG TABLET (FP) ONE (05:03)
[2018-01-29] MEDS ORDERED: LEVOTHYROXINE NA 112 MCG TABLET (FP) ONE (05:04)
[2018-01-29] MEDS ORDERED: FUROSEMIDE 20 MG TABLET (FP) PO SCH ×2 (06:00→10:00)
[2018-01-29] MEDS: LEVOTHYROXINE 25 MCG, LEVOTHYROXINE 112 MCG PO SCH (06:03)
[2018-01-29] MEDS: hydrALAZINE HCL 50 MG TABLET (FP) PO SCH ×3 (06:03→21:30)
--- NOTE | 2018-01-29 07:24 | PN ---
Progress Note (short form) - Note Progress Note: ID Full note dictated Describes not feeling well cold chills couph SOB 1-2 days No fever Selected Entries 01/28/18 01/29/18 21:00 05:44 Temperature 98.1 F Pulse Rate 76 Respiratory 18 Rate Blood Pressure 118/51 O2 Sat by Pulse 95 Oximetry (%) Oxygen Delivery Room Air Method Lung rales left chest Microbiology Laboratory Tests 01/28/18 01/28/18 01/28/18 13:14 13:14 13:14 WBC 9.9 RBC 3.98 Hct 31.4 L Plt Count 240 BUN 24 H Creatinine 1.0 Creat Clearance w eGFR 52.82 Lactic Acid C-Reactive Protein Ur Leukocyte Esterase Negative 01/28/18 01/28/18 13:14 13:15 WBC RBC Hct Plt Count BUN Creatinine Creat Clearance w eGFR Lactic Acid 1.1 C-Reactive Protein < 0.3 Ur Leukocyte Esterase Assessment Left side PNA ? HAP considered Plan Cefepime 1 gram IVPB q 8 Abby REEDER Problem List - Problems (1) COPD (chronic obstructive pulmonary disease) Code(s): J44.9 - CHRONIC OBSTRUCTIVE PULMONARY DISEASE, UNSPECIFIED Qualifiers: (2) Pneumonia Code(s): J18.9 - PNEUMONIA, UNSPECIFIED ORGANISM Qualifiers: Pneumonia type: due to unspecified organism Laterality: unspecified laterality Lung location: unspecified part of lung Qualified Code(s): J18.9 - Pneumonia, unspecified organism
[2018-01-29 07:40] LABS: BASO % 0.2 % (0-2.0); HEMATOCRIT 30.1 % (32.4-45.2); HEMOGLOBIN 9.9 GM/dL (10.7-15.3); LYMPH % 13.6 % (8-40); MCH 25.8 pg (25.7-33.7); MCHC 32.9 g/dl (32.0-36.0); MEAN CELL VOLUME 78.5 fl (80-96); MEAN PLT VOLUME 8.9 fl (7.5-11.1); MONO % 4.6 % (3.8-10.2); NEUT % 81.6 % (42.8-82.8); PLATELET COUNT 235 K/MM3 (134-434); RBC 3.83 M/mm3 (3.60-5.2); RDW 17.9 % (11.6-15.6); WHITE BLOOD COUNT 6.4 K/mm3 (4.0-10.0)
--- NOTE | 2018-01-29 08:07 | CONS ---
INFECTIOUS DISEASE CONSULTATION DATE OF CONSULTATION: DATE OF DICTATION: 01/29/2018 This is an 82-year-old female with a known history of COPD, congestive heart failure, coronary artery disease, and hypertension, who was admitted with a 1-2 day history of worsening shortness of breath associated with a feeling of chills and lower abdominal pressure/discomfort. She was hospitalized earlier in January at [facility]. She lives in a 2-family house with her family and otherwise was feeling her usual self until the last 2 days or so when she developed just generalized malaise associated with weakness, nonproductive cough and the absence of hemoptysis. Here, clinically, she was thought to have pneumonia. She had no fever, a normal white count, and a normal lactic acid. PAST MEDICAL HISTORY: Includes diverticulitis, cholecystectomy, hysterectomy, COPD, congestive heart failure, coronary artery disease with stents, and hypertension. CURRENT MEDICATIONS: Include vitamin D, levothyroxine, Protonix, aspirin, Lasix, Requip, Lipitor, Apresoline, Norvasc, DuoNeb, Lexapro, Diovan. ALLERGIES: CODEINE, IODINATED CONTRAST, MEPERIDINE. SOCIAL HISTORY: Denies smoking or alcohol abuse. No travel. FAMILY HISTORY: Reviewed, noncontributory. REVIEW OF SYSTEMS: Respiratory: Shortness of breath, prominent nonproductive cough. Cardiac: No chest pain, palpitations, syncope. Gastrointestinal: No nausea, vomiting, diarrhea, abdominal pain. Genitourinary: No dysuria, hematuria, urinary frequency. PHYSICAL EXAMINATION: General: A pleasant, elderly woman who appeared in no acute distress. Vital Signs: Her temperature was 98.1, pulse 76, blood pressure 118/51, respirations 18, O2 saturation 95% on room air. Neck: Supple. No adenopathy. Lungs: Clear to percussion with rales noted in the left mid-chest posteriorly. Heart: S1, S2. Regular rhythm without audible murmur. Abdomen: Soft, nontender, without hepatosplenomegaly. No guarding or rebound. Extremities: No clubbing, cyanosis, or edema. DIAGNOSTIC DATA: The white count is 9.9, hemoglobin 10.3, platelets 240; polys 73%, lymphs 13, monocytes 11. BUN 24, creatinine 1.0. Liver enzymes within normal limits. Troponin less than 0.02. CRP 0.3. Urinalysis negative leukocyte esterase. Urine culture January 06, Enterococcus faecalis. Urine culture July 20: ESBL E. coli. ASSESSMENT: An 82-year-old female recently hospitalized in early January, presents now with clinical findings suggestive of early pneumonia, possible hospital acquired given her recent admission. She has a history of an extended spectrum beta-lactamase in the urine, though this was not present on her most recent urine culture earlier this month. She will be empirically treated with cefepime for evolving, left-sided pulmonary infiltrate in the setting of underlying chronic obstructive pulmonary disease, cefepime 1 g IV q.8 hours. Blood and urine cultures have been obtained. Empiric therapy as above. Contact isolation per protocol for extended spectrum beta-lactamase Escherichia coli. CARIN LANDA M.D. [id number]
--- NOTE | 2018-01-29 08:48 | PN ---
Physical Exam: SUBJECTIVE: Patient seen and examined Covering for Patient is comfortable but feels weak, no acute distress, no nausea or vomiting , no abdominal pain, no fever or chills. OBJECTIVE: Vital Signs Temperature 98.1 F 01/29/18 05:44 Pulse Rate 76 01/29/18 05:44 Respiratory Rate 18 01/29/18 05:44 Blood Pressure 118/51 01/29/18 05:44 O2 Sat by Pulse Oximetry (%) 95 01/28/18 21:00 GENERAL: The patient is awake, alert, and fully oriented, in no acute distress. HEAD: Normal with no signs of trauma. EYES: PERRL, extraocular movements intact, sclera anicteric, conjunctiva clear. ENT: Ears normal, oropharynx clear without exudates, moist mucous membranes. NECK: Trachea midline, full range of motion, supple. LUNGS: Breath sounds equal, clear to auscultation bilaterally, no wheezes, no crackles, no accessory muscle use. HEART: Regular rate and rhythm, S1, S2 without murmur, rub or gallop. ABDOMEN: Soft, nontender, nondistended, normoactive bowel sounds, no guarding, no rebound, no hepatosplenomegaly, no masses. EXTREMITIES: 2+ pulses, warm, well-perfused, no edema. NEUROLOGICAL: Cranial nerves II through XII grossly intact. Normal speech, gait not observed. PSYCH: Normal mood, normal affect. SKIN: Warm, dry, normal turgor, no rashes or lesions noted Home Medications Medication Instructions Recorded Aspirin 81 mg PO DAILY 01/02/18 Atorvastatin Ca [Lipitor] 40 mg PO HS 01/02/18 Cyanocobalamin [Vitamin B12 -] 1,000 mcg PO DAILY 01/02/18 Escitalopram Oxalate [Lexapro -] 20 mg PO DAILY 01/02/18 Fluticasone Furoate [Flonase 9.9 ml NS BID 01/02/18 Sensimist] Furosemide 20 mg PO DAILY 01/02/18 Hydralazine HCl 50 mg PO TID 01/02/18 Levothyroxine Sodium [Levoxyl] 137 mcg PO ACBK 01/02/18 Pantoprazole Sodium 40 mg PO BID 01/02/18 Polyethylene Glycol 3350 [Miralax 17 gm PO DAILY 01/02/18 119 gm Btl -] Valsartan 320 mg PO DAILY 01/02/18 Ropinirole HCl [Requip -] 0.25 mg PO BID tablet 01/06/18 Amlodipine Besylate [Norvasc -] 5 mg PO DAILY 01/28/18 Cholecalciferol (Vitamin D3) 2,000 unit PO DAILY 01/28/18 [Vitamin D] Potassium Chloride [K-Dur -] 20 meq PO DAILY 01/28/18 Active Medications Generic Name Dose Route Start Last Admin Trade Name Freq PRN Reason Stop Dose Admin Albuterol/Ipratropium 1 amp 01/28/18 22:33 Duoneb - NEB Q6H PRN SHORT OF BREATH/WHEEZING Amlodipine Besylate 5 mg 01/28/18 22:00 01/28/18 21:34 Norvasc - PO Not Given HS [facility] Aspirin 81 mg 01/29/18 10:00 Asa - PO DAILY [facility] Atorvastatin Calcium 40 mg 01/28/18 22:00 01/28/18 21:34 Lipitor - PO Not Given HS [facility] Cholecalciferol 2,000 unit 01/29/18 10:00 Vitamin D3 - PO DAILY [facility] Cyanocobalamin 1,000 mcg 01/29/18 10:00 Vitamin B12 - PO DAILY [facility] Escitalopram Oxalate 20 mg 01/29/18 10:00 Lexapro - PO DAILY [facility] Fluticasone Propionate 1 spray 01/28/18 22:00 01/28/18 21:39 Flonase - NS 1 spray DAILY [facility] Administration Furosemide 20 mg 01/29/18 10:00 Lasix - PO DAILY [facility] Hydralazine HCl 50 mg 01/28/18 22:00 01/29/18 06:03 Apresoline - PO 50 mg TID [facility] Administration Cefepime HCl 1 gm/ Dextrose 50 mls @ 100 mls/hr 01/29/18 10:00 IVPB Q8H-IV [facility] Protocol Levothyroxine Sodium 25 mcg/ 137 mcg 01/29/18 07:00 01/29/18 06:03 Levothyroxine Sodium 112 mcg PO 137 mcg DAILY@0700 [facility] Administration Ondansetron HCl 4 mg 01/28/18 17:27 Zofran Injection IVPUSH Q6H PRN NAUSEA AND/OR VOMITING Pantoprazole Sodium 40 mg 01/28/18 22:00 01/28/18 21:39 Protonix - PO 40 mg BID [facility] Administration Polyethylene Glycol 17 gm 01/28/18 22:00 01/28/18 21:39 Miralax (For Daily Use) - PO 17 gm BID [facility] Administration Ropinirole HCl 0.25 mg 01/28/18 22:00 01/28/18 21:38 Requip - PO 0.25 mg BID [facility] Administration Senna 2 tab 01/28/18 22:00 01/28/18 21:38 Senna - PO 2 tab HS [facility] Administration Valsartan 320 mg 01/29/18 10:00 Diovan - PO DAILY [facility] ASSESSMENT/PLAN: Patient is an 82 Yo female with h/o diverticulitis (5 years ago), cholecystectomy, hysterectomy, COPD, CHF, CAD (s/p 2 stents and balloon angioblasty), and HTN who presneted with lower abdominal pain and shortness of breath and was found to have HCAP since patient was recently hospitalized. # HCAP on Cefepime as per ID continue # Chronic COPD continue current management # Hx of Diastolic Congestive cardiac continue current management continue home lasix followed by Cardiology outpt # Coronary artery disease stable, s/p pci(2007), continue current regimen # Hyperlipidemia on statin continue #Hypertension controlled continue current management # Hypothyroid continue levothyroxine # Venous insufficiency stable, continue lasix # chronic Osteoarthritis tylenol prn # GERD (gastroesophageal reflux disease) DVT Px: lOVENOX 40MG DAILY Visit type - Emergency Visit Emergency Visit: Yes ED Registration Date: 01/28/18 Care time: The patient presented to the Emergency Department on the above date and was hospitalized for further evaluation of their emergent condition. - New Patient This patient is new to me today: Yes Date on this admission: 01/29/18 - Critical Care Critical Care patient: No
[2018-01-29 09:11] LABS: CHLORIDE 112 mmol/L (98-107); POTASSIUM 4.1 mmol/L (3.5-5.1); SODIUM 142 mmol/L (136-145)
[2018-01-29 09:12] LABS: N-TERMINAL BNP 405.66 pg/ml (5-450)
[2018-01-29 09:16] LABS: ALK PHOS 103 U/L (45-117); ANION GAP 6 (8-16); BILIRUBIN,TOTAL 0.3 mg/dL (0.2-1.0); BLOOD UREA NITROGEN 29 mg/dL (7-18); CALCIUM 9.6 mg/dL (8.5-10.1); CO2 24 mmol/L (21-32); CREATININE 1.1 mg/dL (0.55-1.02); GLUCOSE,RANDOM 113 mg/dL (74-106); MAGNESIUM 1.9 mg/dL (1.8-2.4); PHOSPHOROUS 3.2 mg/dL (2.5-4.9); SGOT/AST 28 U/L (15-37); SGPT/ALT 21 U/L (12-78); TOT PROT 5.3 g/dl (6.4-8.2)
[2018-01-29] MEDS ORDERED: PANTOPRAZOLE 40 MG TABLET (FP) PO SCH (10:00)
[2018-01-29] MEDS ORDERED: PATIENT'S OWN MEDICATION (NON-FORMULARY) (Ergocalciferol (Vitamin D2) [Vitamin D2] 2,000 U PO SCH (10:00)
[2018-01-29] MEDS ORDERED: LEVOTHYROXINE SODIUM 137 MCG PO SCH (10:00)
[2018-01-29] MEDS ORDERED: POTASSIUM CHLORIDE 8 MEQ PO SCH (10:00)
[2018-01-29] MEDS: FUROSEMIDE 20 MG TABLET (FP) PO SCH (10:10)
[2018-01-29] MEDS: ASPIRIN 81 MG CHEWABLE TABLETS PO SCH (10:10)
[2018-01-29] MEDS: VALSARTAN 160 MG TABLET (UD) PO SCH (10:10)
[2018-01-29] MEDS: PANTOPRAZOLE 40 MG TABLET (FP) PO SCH ×2 (10:11→21:31)
[2018-01-29] MEDS: CEFEPIME 1 GM in DEXTROSE 5%-WATER - 50 ML IVPB SCH ×2 (10:11→17:54)
[2018-01-29] MEDS: rOPINIRole HCL 0.25 MG TABLET PO SCH ×2 (10:11→21:35)
[2018-01-29] MEDS: CYANOCOBALAMIN 1,000 MCG TABLET (FP) PO SCH (10:11)
[2018-01-29] MEDS: ESCITALOPRAM OXALATE 20 MG TABLET (FP) PO SCH (10:11)
[2018-01-29] MEDS: POLYETHYLENE GLYCOL 3350 119 GM BTL PO SCH ×2 (10:11→21:31)
[2018-01-29] MEDS: FLUTICASONE PROP 0.05% 16 GM NASAL SPRAY NS SCH (10:12)
[2018-01-29] MEDS: CHOLECALCIFEROL (VITAMIN D3) 1,000 UNIT TABLET (FP) PO SCH (10:13)
[2018-01-29] MEDS ORDERED: PT OWN MED DRAWER 7, Y5N ONE ×3 (10:30→21:35)
--- NOTE | 2018-01-29 11:33 | EKG ---
Test Reason : Blood Pressure : / mmHG Vent. Rate : 068 BPM Atrial Rate : 068 BPM P-R Int : 190 ms QRS Dur : 086 ms QT Int : 428 ms P-R-T Axes : 053 027 045 degrees QTc Int : 455 ms NORMAL SINUS RHYTHM NORMAL ECG WHEN COMPARED WITH ECG OF 02-JAN-2018 21:01, NO SIGNIFICANT CHANGE WAS FOUND Confirmed by KATHERIN VELASCO MD ([id number]) on 01/29/2018 11:32:48 AM Referred By: Confirmed By:KATHERIN VELASCO MD
[2018-01-29] MEDS: ATORVASTATIN CA 40 MG TABLET (FP) PO SCH (21:30)
[2018-01-29] MEDS: SENNOSIDES 8.6MG TABLET (FP) PO SCH (21:31)
[2018-01-29] MEDS: amLODIPine BESYLATE 5 MG TABLET (FP) PO SCH (21:31)
[2018-01-30] MEDS: CEFEPIME 1 GM in DEXTROSE 5%-WATER - 50 ML IVPB SCH ×2 (01:39→09:45)
[2018-01-30] MEDS ORDERED: PT OWN MED DRAWER 7, Y5N ONE ×3 (01:53→09:40)
[2018-01-30] MEDS ORDERED: LEVOTHYROXINE NA 25 MCG TABLET (FP) ONE (06:22)
[2018-01-30] MEDS ORDERED: LEVOTHYROXINE NA 112 MCG TABLET (FP) ONE (06:23)
[2018-01-30] MEDS: LEVOTHYROXINE 25 MCG, LEVOTHYROXINE 112 MCG PO SCH (06:48)
[2018-01-30] MEDS: hydrALAZINE HCL 50 MG TABLET (FP) PO SCH ×3 (06:48→21:56)
--- NOTE | 2018-01-30 08:02 | PN ---
Progress Note, Physician Chief Complaint: ID Fells very weak and couphing Cefepime - Current Medication List Current Medications: Active Medications Albuterol/Ipratropium (Duoneb -) 1 amp NEB Q6H PRN PRN Reason: SHORT OF BREATH/WHEEZING Amlodipine Besylate (Norvasc -) 5 mg PO HS [facility] Last Admin: 01/29/18 21:31 Dose: 5 mg Aspirin (Asa -) 81 mg PO DAILY [facility] Last Admin: 01/29/18 10:10 Dose: 81 mg Atorvastatin Calcium (Lipitor -) 40 mg PO HS [facility] Last Admin: 01/29/18 21:30 Dose: 40 mg Cholecalciferol (Vitamin D3 -) 2,000 unit PO DAILY [facility] Last Admin: 01/29/18 10:13 Dose: 2,000 unit Cyanocobalamin (Vitamin B12 -) 1,000 mcg PO DAILY [facility] Last Admin: 01/29/18 10:11 Dose: 1,000 mcg Escitalopram Oxalate (Lexapro -) 20 mg PO DAILY [facility] Last Admin: 01/29/18 10:11 Dose: 20 mg Fluticasone Propionate (Flonase -) 1 spray NS DAILY [facility] Last Admin: 01/29/18 10:12 Dose: 1 spray Furosemide (Lasix -) 20 mg PO DAILY [facility] Last Admin: 01/29/18 10:10 Dose: 20 mg Hydralazine HCl (Apresoline -) 50 mg PO TID [facility] Last Admin: 01/30/18 06:48 Dose: 50 mg Cefepime HCl 1 gm/ Dextrose 50 mls @ 100 mls/hr IVPB Q8H-IV [facility] PRN Reason: Protocol Last Admin: 01/30/18 01:39 Dose: 100 mls/hr Levothyroxine Sodium 25 mcg/ (Levothyroxine Sodium 112 mcg) 137 mcg PO DAILY@ 0700 [facility] Last Admin: 01/30/18 06:48 Dose: 137 mcg Ondansetron HCl (Zofran Injection) 4 mg IVPUSH Q6H PRN PRN Reason: NAUSEA AND/OR VOMITING Pantoprazole Sodium (Protonix -) 40 mg PO BID [facility] Last Admin: 01/29/18 21:31 Dose: 40 mg Polyethylene Glycol (Miralax (For Daily Use) -) 17 gm PO BID [facility] Last Admin: 01/29/18 21:31 Dose: 17 gm Ropinirole HCl (Requip -) 0.25 mg PO BID [facility] Last Admin: 01/29/18 21:35 Dose: 0.25 mg Senna (Senna -) 2 tab PO HS [facility] Last Admin: 01/29/18 21:31 Dose: 2 tab Valsartan (Diovan -) 320 mg PO DAILY [facility] Last Admin: 01/29/18 10:10 Dose: Not Given - Objective Vital Signs: Vital Signs Temperature 98.2 F 01/30/18 06:00 Pulse Rate 66 01/30/18 06:00 Respiratory Rate 20 01/30/18 06:00 Blood Pressure 144/64 01/30/18 06:00 O2 Sat by Pulse Oximetry (%) 95 01/29/18 21:00 Constitutional: Yes: Well Nourished, No Distress HENT: Yes: WNL, Atraumatic Neck: Yes: WNL, Supple Cardiovascular: Yes: Regular Rate and Rhythm, S1, S2 Respiratory: Yes: WNL, Regular, CTA Bilaterally. No: Rales, Rhonchi Gastrointestinal: Yes: WNL, Normal Bowel Sounds, Soft. No: Tenderness, Tenderness, Rebound Edema: No Labs: CBC, BMP 01/29/18 07:05 01/29/18 07:05 INR, PTT INR 1.01 (0.82-1.09) 01/28/18 13:14 Problem List - Problems (1) COPD (chronic obstructive pulmonary disease) Code(s): J44.9 - CHRONIC OBSTRUCTIVE PULMONARY DISEASE, UNSPECIFIED Qualifiers: (2) Pneumonia Code(s): J18.9 - PNEUMONIA, UNSPECIFIED ORGANISM Qualifiers: Pneumonia type: due to unspecified organism Laterality: unspecified laterality Lung location: unspecified part of lung Qualified Code(s): J18.9 - Pneumonia, unspecified organism Assessment/Plan Microbiology 01/06/18 13:00 Urine - Urine Clean Catch Urine Culture - Final Enterococcus Faecalis 01/28/18 13:14 Urine - Urine Clean Catch Urine Culture - Preliminary Group D Strep Or Entero Coccus Laboratory Tests 01/28/18 01/29/18 01/29/18 13:14 07:05 07:05 WBC 6.4 D Hgb 9.9 L Hct 30.1 L Plt Count 235 ESR BUN 29 H Creatinine 1.1 H Ur Leukocyte Esterase Negative 01/29/18 07:05 WBC Hgb Hct Plt Count ESR 20 BUN Creatinine Ur Leukocyte Esterase Assessment Pneumonia Asymptomatic bacteruria E faecalis COPD Plan Continue current therapy IV for today Abby REEDER
[2018-01-30] MEDS: VALSARTAN 160 MG TABLET (UD) PO SCH (09:44)
[2018-01-30] MEDS: ASPIRIN 81 MG CHEWABLE TABLETS PO SCH (09:44)
[2018-01-30] MEDS: CHOLECALCIFEROL (VITAMIN D3) 1,000 UNIT TABLET (FP) PO SCH (09:44)
[2018-01-30] MEDS: CYANOCOBALAMIN 1,000 MCG TABLET (FP) PO SCH (09:44)
[2018-01-30] MEDS: PANTOPRAZOLE 40 MG TABLET (FP) PO SCH ×2 (09:45→21:56)
[2018-01-30] MEDS: ENOXAPARIN NA (PORCINE) 40 MG/0.4 ML DISP.SYRIN SQ SCH (09:45)
[2018-01-30] MEDS: ESCITALOPRAM OXALATE 20 MG TABLET (FP) PO SCH (09:45)
[2018-01-30] MEDS: FUROSEMIDE 20 MG TABLET (FP) PO SCH (09:45)
[2018-01-30] MEDS: POLYETHYLENE GLYCOL 3350 119 GM BTL PO SCH ×2 (09:46→22:00)
[2018-01-30] MEDS: rOPINIRole HCL 0.25 MG TABLET PO SCH ×2 (09:47→21:56)
[2018-01-30] MEDS: FLUTICASONE PROP 0.05% 16 GM NASAL SPRAY NS SCH (09:50)
[2018-01-30] MEDS ORDERED: SODIUM CHLORIDE 500 ML IV STA (15:38)
[2018-01-30 16:26] LABS: BASO % 0.4 % (0-2.0); EOS % 2.5 % (0-4.5); HEMATOCRIT 28.6 % (32.4-45.2); HEMOGLOBIN 9.6 GM/dL (10.7-15.3); LYMPH % 19.9 % (8-40); MCH 26.2 pg (25.7-33.7); MCHC 33.5 g/dl (32.0-36.0); MEAN CELL VOLUME 78.2 fl (80-96); MEAN PLT VOLUME 8.3 fl (7.5-11.1); NEUT % 67.2 % (42.8-82.8); PLATELET COUNT 240 K/MM3 (134-434); RBC 3.65 M/mm3 (3.60-5.2); WHITE BLOOD COUNT 7.6 K/mm3 (4.0-10.0)
[2018-01-30 16:47] LABS: ALBUMIN 2.7 g/dl (3.4-5.0); ALK PHOS 94 U/L (45-117); ANION GAP 4 (8-16); BILIRUBIN,TOTAL 0.3 mg/dL (0.2-1.0); BLOOD UREA NITROGEN 31 mg/dL (7-18); CALCIUM 8.7 mg/dL (8.5-10.1); CHLORIDE 115 mmol/L (98-107); CO2 26 mmol/L (21-32); CREATININE 1.2 mg/dL (0.55-1.02); GLUCOSE,RANDOM 94 mg/dL (74-106); PHOSPHOROUS 3.4 mg/dL (2.5-4.9); POTASSIUM 3.7 mmol/L (3.5-5.1); SGOT/AST 23 U/L (15-37); SGPT/ALT 19 U/L (12-78); SODIUM 145 mmol/L (136-145); TOT PROT 4.8 g/dl (6.4-8.2)
[2018-01-30] MEDS: CEFEPIME HCL/D5W 1 GM/50 ML BAG IVPB SCH (17:03)
--- NOTE | 2018-01-30 17:14 | PN ---
Physical Exam: SUBJECTIVE: Patient seen and examined at bedside. States doesn't feel well. Feels like she has chills. OBJECTIVE: Vital Signs Period Temp Pulse Resp BP Sys/Rios Pulse Ox Last 24 Hr 98.2 F-99.2 F 64-72 18-20 119-144/50-64 95-95 GENERAL: The patient is awake, alert. LUNGS: CTA HEART: Regular rate and rhythm, S1, S2 ABDOMEN: Soft, nontender, nondistended, normoactive bowel sounds EXTREMITIES: 2+ pulses, warm, well-perfused, no edema. NEUROLOGICAL: Cranial nerves II through XII grossly intact. Normal speech, gait not observed. Laboratory Results - last 24 hr 01/30/18 01/30/18 14:00 14:00 WBC 7.6 RBC 3.65 Hgb 9.6 L Hct 28.6 L MCV 78.2 L MCH 26.2 MCHC 33.5 RDW 18.0 H Plt Count 240 MPV 8.3 Neutrophils % 67.2 Lymphocytes % 19.9 D Monocytes % 10.0 D Eosinophils % 2.5 D Basophils % 0.4 Sodium 145 Potassium 3.7 Chloride 115 H Carbon Dioxide 26 Anion Gap 4 L BUN 31 H Creatinine 1.2 H Creat Clearance w eGFR 42.80 Random Glucose 94 Calcium 8.7 Phosphorus 3.4 Magnesium 2.0 Total Bilirubin 0.3 AST 23 ALT 19 Alkaline Phosphatase 94 Total Protein 4.8 L Albumin 2.7 L Active Medications Generic Name Dose Route Start Last Admin Trade Name Freq PRN Reason Stop Dose Admin Albuterol/Ipratropium 1 amp 01/30/18 16:00 Duoneb - NEB RQID HUNTER Amlodipine Besylate 5 mg 01/28/18 22:00 01/29/18 21:31 Norvasc - PO 5 mg HS HUNTER Administration Aspirin 81 mg 01/29/18 10:00 01/30/18 09:44 Asa - PO 81 mg DAILY HUNTER Administration Atorvastatin Calcium 40 mg 01/28/18 22:00 01/29/18 21:30 Lipitor - PO 40 mg HS HUNTER Administration Cholecalciferol 2,000 unit 01/29/18 10:00 01/30/18 09:44 Vitamin D3 - PO 2,000 unit DAILY HUNTER Administration Cyanocobalamin 1,000 mcg 01/29/18 10:00 01/30/18 09:44 Vitamin B12 - PO 1,000 mcg DAILY HUNTER Administration Enoxaparin Sodium 40 mg 01/30/18 10:00 01/30/18 09:45 Lovenox - SQ 40 mg DAILY HUNTER Administration Escitalopram Oxalate 20 mg 01/29/18 10:00 01/30/18 09:45 Lexapro - PO 20 mg DAILY HUNTER Administration Fluticasone Propionate 1 spray 01/28/18 22:00 01/30/18 09:50 Flonase - NS 1 spray DAILY HUNTER Administration Furosemide 20 mg 01/29/18 10:00 01/30/18 09:45 Lasix - PO 20 mg DAILY HUNTER Administration Hydralazine HCl 50 mg 01/28/18 22:00 01/30/18 15:02 Apresoline - PO Not Given TID HUNTER Cefepime HCl 1 gm in 50 mls @ 100 mls/hr 01/30/18 10:47 01/30/18 17:03 Maxipime 1 Gm Premix Ivpb IVPB 100 mls/hr Q8H-IV HUNTER Administration Protocol Levothyroxine Sodium 25 mcg/ 137 mcg 01/29/18 07:00 01/30/18 06:48 Levothyroxine Sodium 112 mcg PO 137 mcg DAILY@0700 HUNTER Administration Ondansetron HCl 4 mg 01/28/18 17:27 Zofran Injection IVPUSH Q6H PRN NAUSEA AND/OR VOMITING Pantoprazole Sodium 40 mg 01/28/18 22:00 01/30/18 09:45 Protonix - PO 40 mg BID HUNTER Administration Polyethylene Glycol 17 gm 01/28/18 22:00 01/30/18 09:46 Miralax (For Daily Use) - PO 17 gm BID HUNTER Administration Ropinirole HCl 0.25 mg 01/28/18 22:00 01/30/18 09:47 Requip - PO 0.25 mg BID HUNTER Administration Senna 2 tab 01/28/18 22:00 01/29/18 21:31 Senna - PO 2 tab HS HUNTER Administration Valsartan 320 mg 01/29/18 10:00 01/30/18 09:44 Diovan - PO 320 mg DAILY HUNTER Administration ASSESSMENT/PLAN: 82 year-old female with a PMH significant for HTN, HLD, CAD s/p stents, diastolic HF, asthma/COPD, recurrent aspiration pneumonia, hypothyroidism, diverticulitis, and RLS. Admitted for pneumonia. Pneumonia --01/28 CXR: increased left-sided lung markings concern for infection --afebrile, no leukocytosis --continue cefepime --ID following E. faecalis bacteuria --asymptomatic Hypertension --BP stable --continue valsartan, hydralazine Hyperlipidemia --continue Lipitor Coronary artery disease --not on ASA or beta pearl, continue statin Chronic kidney disease Azotemia --Cr 1.0 on admission, trending up to 1.2 --stop Lasix --give NS x 500cc --if continues to rise, hold Losartan Diastolic heart failure --possibly over-diuresed with mildly elevated Cr --hold Lasix Asthma/COPD --continue duonebs Hypothyroidism --continue levothyroxine Diverticulitis --stable Restless leg syndrome --continue ropirinole, lexapro FEN Fluids: PO intake adequate Electrolytes: replete as indicated Nutrition: low sodium DVT prophylaxis: lovenox, oob, ambulation Physical therapy Dispo: continues to require inpatient care. Full code. Visit type - Emergency Visit Emergency Visit: Yes ED Registration Date: 01/28/18 Care time: The patient presented to the Emergency Department on the above date and was hospitalized for further evaluation of their emergent condition. - New Patient This patient is new to me today: Yes Date on this admission: 01/30/18 - Critical Care Critical Care patient: No
[2018-01-30] MEDS: ALBUTEROL SO4 2.5/IPRATROPIUM 0.5 INH SOL 3 ML VIAL.NEB. NEB SCH ×2 (17:30→20:25)
[2018-01-30] MEDS: ATORVASTATIN CA 40 MG TABLET (FP) PO SCH (21:56)
[2018-01-30] MEDS: amLODIPine BESYLATE 5 MG TABLET (FP) PO SCH (21:56)
[2018-01-30] MEDS: SENNOSIDES 8.6MG TABLET (FP) PO SCH ×2 (21:57→22:06)
[2018-01-31] MEDS: CEFEPIME HCL/D5W 1 GM/50 ML BAG IVPB SCH ×2 (01:13→10:41)
[2018-01-31] MEDS ORDERED: LEVOTHYROXINE NA 112 MCG TABLET (FP) ONE (05:37)
[2018-01-31] MEDS ORDERED: LEVOTHYROXINE NA 25 MCG TABLET (FP) ONE (05:37)
[2018-01-31] MEDS: hydrALAZINE HCL 50 MG TABLET (FP) PO SCH ×3 (06:03→22:33)
[2018-01-31] MEDS: LEVOTHYROXINE 25 MCG, LEVOTHYROXINE 112 MCG PO SCH (06:03)
[2018-01-31] MEDS: ALBUTEROL SO4 2.5/IPRATROPIUM 0.5 INH SOL 3 ML VIAL.NEB. NEB SCH ×4 (07:15→20:07)
[2018-01-31] MEDS ORDERED: PT OWN MED DRAWER 7, Y5N ONE (09:42)
--- NOTE | 2018-01-31 09:54 | PN ---
Progress Note (short form) - Note Progress Note: Dr. Shelby to document today.
--- NOTE | 2018-01-31 10:02 | PN ---
Progress Note (short form) - Note Progress Note: ID Discussed with PMD Cefepime Some diarrhea Selected Entries 01/30/18 01/30/18 17:20 22:00 Temperature 97.6 F Pulse Rate 62 Respiratory 18 Rate Blood Pressure 141/51 Today chest xray no infiltrate Assessment COPD No clear infiltate seen Plan Stop cefepime causing diarrhea? Ceftin 500mg bid 3 days No Rx for colonization urinary tract Abby REEDER Problem List - Problems (1) COPD (chronic obstructive pulmonary disease) Code(s): J44.9 - CHRONIC OBSTRUCTIVE PULMONARY DISEASE, UNSPECIFIED Qualifiers: (2) Pneumonia Code(s): J18.9 - PNEUMONIA, UNSPECIFIED ORGANISM Qualifiers: Pneumonia type: due to unspecified organism Laterality: unspecified laterality Lung location: unspecified part of lung Qualified Code(s): J18.9 - Pneumonia, unspecified organism
[2018-01-31] MEDS: CHOLECALCIFEROL (VITAMIN D3) 1,000 UNIT TABLET (FP) PO SCH (10:41)
[2018-01-31] MEDS: VALSARTAN 160 MG TABLET (UD) PO SCH (10:41)
[2018-01-31] MEDS: PANTOPRAZOLE 40 MG TABLET (FP) PO SCH ×2 (10:41→22:33)
[2018-01-31] MEDS: ENOXAPARIN NA (PORCINE) 40 MG/0.4 ML DISP.SYRIN SQ SCH (10:41)
[2018-01-31] MEDS: ASPIRIN 81 MG CHEWABLE TABLETS PO SCH (10:41)
[2018-01-31] MEDS: CYANOCOBALAMIN 1,000 MCG TABLET (FP) PO SCH (10:41)
[2018-01-31] MEDS: ESCITALOPRAM OXALATE 20 MG TABLET (FP) PO SCH (10:41)
[2018-01-31] MEDS: rOPINIRole HCL 0.25 MG TABLET PO SCH ×2 (10:42→23:35)
[2018-01-31] MEDS: POLYETHYLENE GLYCOL 3350 119 GM BTL PO SCH ×2 (10:43→23:34)
[2018-01-31] MEDS: FLUTICASONE PROP 0.05% 16 GM NASAL SPRAY NS SCH (10:43)
[2018-01-31 13:20] LABS: BASO % 0.6 % (0-2.0); EOS % 3.4 % (0-4.5); HEMATOCRIT 32.1 % (32.4-45.2); HEMOGLOBIN 10.3 GM/dL (10.7-15.3); LYMPH % 21.3 % (8-40); MCH 25.5 pg (25.7-33.7); MCHC 32.2 g/dl (32.0-36.0); MEAN CELL VOLUME 79.4 fl (80-96); MEAN PLT VOLUME 8.5 fl (7.5-11.1); MONO % 12.6 % (3.8-10.2); NEUT % 62.1 % (42.8-82.8); PLATELET COUNT 279 K/MM3 (134-434); RBC 4.04 M/mm3 (3.60-5.2); RDW 18.4 % (11.6-15.6); WHITE BLOOD COUNT 7.3 K/mm3 (4.0-10.0)
[2018-01-31 13:46] LABS: ANION GAP 7 (8-16); BLOOD UREA NITROGEN 22 mg/dL (7-18); CALCIUM 9.5 mg/dL (8.5-10.1); CHLORIDE 111 mmol/L (98-107); CO2 26 mmol/L (21-32); GLUCOSE,RANDOM 80 mg/dL (74-106); POTASSIUM 3.5 mmol/L (3.5-5.1); SODIUM 144 mmol/L (136-145)
[2018-01-31] MEDS: FUROSEMIDE 20 MG TABLET (FP) PO SCH (15:18)
--- NOTE | 2018-01-31 15:25 | PN ---
Progress Note, Physician Chief Complaint: Pt sitting in chair in no acute distress. slightly anxious. reports mild sob, pleuritic discomfort. Otherwise, denies any chest pain/discomfort, n/v/d, or fever - Current Medication List Current Medications: Active Medications Albuterol/Ipratropium (Duoneb -) 1 amp NEB RQID [facility] Last Admin: 01/31/18 11:33 Dose: Not Given Amlodipine Besylate (Norvasc -) 5 mg PO HS [facility] Last Admin: 01/30/18 21:56 Dose: 5 mg Aspirin (Asa -) 81 mg PO DAILY [facility] Last Admin: 01/31/18 10:41 Dose: 81 mg Atorvastatin Calcium (Lipitor -) 40 mg PO HS [facility] Last Admin: 01/30/18 21:56 Dose: 40 mg Cefuroxime Axetil (Ceftin -) 500 mg PO BID [facility] Cholecalciferol (Vitamin D3 -) 2,000 unit PO DAILY [facility] Last Admin: 01/31/18 10:41 Dose: 2,000 unit Cyanocobalamin (Vitamin B12 -) 1,000 mcg PO DAILY [facility] Last Admin: 01/31/18 10:41 Dose: 1,000 mcg Enoxaparin Sodium (Lovenox -) 40 mg SQ DAILY [facility] Last Admin: 01/31/18 10:41 Dose: 40 mg Escitalopram Oxalate (Lexapro -) 20 mg PO DAILY [facility] Last Admin: 01/31/18 10:41 Dose: 20 mg Fluticasone Propionate (Flonase -) 1 spray NS DAILY [facility] Last Admin: 01/31/18 10:43 Dose: 1 spray Furosemide (Lasix -) 20 mg PO DAILY [facility] Last Admin: 01/31/18 15:18 Dose: 20 mg Hydralazine HCl (Apresoline -) 50 mg PO TID [facility] Last Admin: 01/31/18 15:18 Dose: 50 mg Levothyroxine Sodium 25 mcg/ (Levothyroxine Sodium 112 mcg) 137 mcg PO DAILY@ 0700 [facility] Last Admin: 01/31/18 06:03 Dose: 137 mcg Ondansetron HCl (Zofran Injection) 4 mg IVPUSH Q6H PRN PRN Reason: NAUSEA AND/OR VOMITING Pantoprazole Sodium (Protonix -) 40 mg PO BID [facility] Last Admin: 01/31/18 10:41 Dose: 40 mg Polyethylene Glycol (Miralax (For Daily Use) -) 17 gm PO BID [facility] Last Admin: 01/31/18 10:43 Dose: Not Given Ropinirole HCl (Requip -) 0.25 mg PO BID [facility] Last Admin: 01/31/18 10:42 Dose: 0.25 mg Senna (Senna -) 2 tab PO HS [facility] Last Admin: 01/30/18 22:06 Dose: Not Given Valsartan (Diovan -) 320 mg PO DAILY [facility] Last Admin: 01/31/18 10:41 Dose: 320 mg - Objective Vital Signs: Vital Signs Temperature 97.3 F L 01/31/18 13:59 Pulse Rate 73 01/31/18 14:43 Respiratory Rate 18 01/31/18 13:59 Blood Pressure 129/57 01/31/18 13:59 O2 Sat by Pulse Oximetry (%) 91 L 01/31/18 14:43 Constitutional: Yes: Well Nourished, No Distress, Anxious Cardiovascular: Yes: Regular Rate and Rhythm Respiratory: Yes: WNL, Regular, CTA Bilaterally, SOB (mild, improved). No: Tachypnea, Wheezes Gastrointestinal: Yes: WNL, Normal Bowel Sounds, Soft. No: Distention, Tenderness Genitourinary: Yes: WNL Edema: Yes Edema: LLE: 1+, RLE: 1+ Neurological: Yes: WNL, Alert, Oriented Psychiatric: Yes: WNL, Alert, Oriented Labs: CBC, BMP 01/31/18 12:15 01/31/18 12:15 INR, PTT INR 1.01 (0.82-1.09) 01/28/18 13:14 Problem List - Problems (1) HCAP (healthcare-associated pneumonia) Code(s): J18.9 - PNEUMONIA, UNSPECIFIED ORGANISM (2) COPD (chronic obstructive pulmonary disease) Code(s): J44.9 - CHRONIC OBSTRUCTIVE PULMONARY DISEASE, UNSPECIFIED Qualifiers: (3) Congestive cardiac failure Code(s): I50.9 - HEART FAILURE, UNSPECIFIED (4) Coronary artery disease Code(s): I25.10 - ATHSCL HEART DISEASE OF [place] CORONARY ARTERY W/O ANG PCTRS Qualifiers: [place] vs. transplanted heart: [place] heart Associated angina: without angina (5) Hyperlipidemia Code(s): E78.5 - HYPERLIPIDEMIA, UNSPECIFIED (6) Hypertension Code(s): I10 - ESSENTIAL (PRIMARY) HYPERTENSION Qualifiers: Hypertension type: essential hypertension Qualified Code(s): I10 - Essential (primary) hypertension (7) Hypothyroid Code(s): E03.9 - HYPOTHYROIDISM, UNSPECIFIED Qualifiers: (8) Venous insufficiency Code(s): I87.2 - VENOUS INSUFFICIENCY (CHRONIC) (PERIPHERAL) (9) Osteoarthritis Code(s): M19.90 - UNSPECIFIED OSTEOARTHRITIS, UNSPECIFIED SITE (10) GERD (gastroesophageal reflux disease) Code(s): K21.9 - GASTRO-ESOPHAGEAL REFLUX DISEASE WITHOUT ESOPHAGITIS Qualifiers: Esophagitis presence: without esophagitis Qualified Code(s): K21.9 - Gastro -esophageal reflux disease without esophagitis (11) UTI (urinary tract infection) Code(s): N39.0 - URINARY TRACT INFECTION, SITE NOT SPECIFIED Qualifiers: Urinary tract infection type: acute cystitis Hematuria presence: without hematuria Qualified Code(s): N30.00 - Acute cystitis without hematuria Assessment/Plan (1) HCAP (healthcare-associated pneumonia) Assessment/Plan: afebrile, wbcs wnl chest xray today wnl, LLL base changes clearing blood/sputum cultures neg pt transitioned to PO ceftin ID consult appreciated Code(s): J18.9 - PNEUMONIA, UNSPECIFIED ORGANISM (2) COPD (chronic obstructive pulmonary disease) Assessment/Plan: chronic continue current management Code(s): J44.9 - CHRONIC OBSTRUCTIVE PULMONARY DISEASE, UNSPECIFIED Qualifiers: (3) Congestive cardiac failure Assessment/Plan: diastolic, chronic continue current management bnp wnl low na diet daily weights home lasix followed by Cardiology outpt Code(s): I50.9 - HEART FAILURE, UNSPECIFIED (4) Coronary artery disease Assessment/Plan: stable s/p pci(2007) continue statin, arb, asa Code(s): I25.10 - ATHSCL HEART DISEASE OF [place] CORONARY ARTERY W/O ANG PCTRS Qualifiers: [place] vs. transplanted heart: [place] heart Associated angina: without angina (5) Hyperlipidemia Assessment/Plan: chronic statin Code(s): E78.5 - HYPERLIPIDEMIA, UNSPECIFIED (6) Hypertension Assessment/Plan: controlled continue current management Code(s): I10 - ESSENTIAL (PRIMARY) HYPERTENSION Qualifiers: Hypertension type: essential hypertension Qualified Code(s): I10 - Essential (primary) hypertension (7) Hypothyroid Assessment/Plan: chronic continue levothyroxine Code(s): E03.9 - HYPOTHYROIDISM, UNSPECIFIED Qualifiers: (8) Venous insufficiency Assessment/Plan: stable continue lasix Code(s): I87.2 - VENOUS INSUFFICIENCY (CHRONIC) (PERIPHERAL) (9) Osteoarthritis Assessment/Plan: chronic tylenol prn Code(s): M19.90 - UNSPECIFIED OSTEOARTHRITIS, UNSPECIFIED SITE (10) GERD (gastroesophageal reflux disease) Assessment/Plan: chronic continue protonix Code(s): K21.9 - GASTRO-ESOPHAGEAL REFLUX DISEASE WITHOUT ESOPHAGITIS Qualifiers: Esophagitis presence: without esophagitis Qualified Code(s): K21.9 - Gastro -esophageal reflux disease without esophagitis (11) UTI (urinary tract infection) Assessment/Plan: asymptomatic UC grew ent.faecalis covered by ceftin Code(s): N39.0 - URINARY TRACT INFECTION, SITE NOT SPECIFIED Qualifiers: Urinary tract infection type: acute cystitis Hematuria presence: without hematuria Qualified Code(s): N30.00 - Acute cystitis without hematuria Dispo: SNF. Discussed with pt at bedside regarding plan for discharge tomorrow. 24 hour notice given. Pt expressed preference to go [facility]. SW informed of discharge plan.
[2018-01-31] MEDS: amLODIPine BESYLATE 5 MG TABLET (FP) PO SCH (22:33)
[2018-01-31] MEDS: SENNOSIDES 8.6MG TABLET (FP) PO SCH (22:33)
[2018-01-31] MEDS: ATORVASTATIN CA 40 MG TABLET (FP) PO SCH (22:33)
[2018-01-31] MEDS: CEFUROXIME AXETIL 500 MG TABLET PO SCH (23:35)
[2018-02-01] MEDS ORDERED: PT OWN MED DRAWER 7, Y5N ONE ×2 (01:07→09:30)
[2018-02-01] MEDS ORDERED: LEVOTHYROXINE NA 25 MCG TABLET (FP) ONE (06:09)
[2018-02-01] MEDS ORDERED: LEVOTHYROXINE NA 112 MCG TABLET (FP) ONE (06:10)
[2018-02-01] MEDS: hydrALAZINE HCL 50 MG TABLET (FP) PO SCH ×2 (06:11→13:27)
[2018-02-01] MEDS: LEVOTHYROXINE 25 MCG, LEVOTHYROXINE 112 MCG PO SCH (06:11)
[2018-02-01] MEDS: ALBUTEROL SO4 2.5/IPRATROPIUM 0.5 INH SOL 3 ML VIAL.NEB. NEB SCH ×3 (08:59→15:36)
[2018-02-01] MEDS ORDERED: POTASSIUM CHLORIDE TABS 20 MEQ TABLET.ER (FP) PO ONE (09:20)
[2018-02-01] MEDS: CYANOCOBALAMIN 1,000 MCG TABLET (FP) PO SCH (10:44)
[2018-02-01] MEDS: ENOXAPARIN NA (PORCINE) 40 MG/0.4 ML DISP.SYRIN SQ SCH (10:44)
[2018-02-01] MEDS: VALSARTAN 160 MG TABLET (UD) PO SCH (10:44)
[2018-02-01] MEDS: CHOLECALCIFEROL (VITAMIN D3) 1,000 UNIT TABLET (FP) PO SCH (10:44)
[2018-02-01] MEDS: rOPINIRole HCL 0.25 MG TABLET PO SCH (10:45)
[2018-02-01] MEDS: FUROSEMIDE 20 MG TABLET (FP) PO SCH (10:45)
[2018-02-01] MEDS: PANTOPRAZOLE 40 MG TABLET (FP) PO SCH (10:45)
[2018-02-01] MEDS: ESCITALOPRAM OXALATE 20 MG TABLET (FP) PO SCH (10:45)
[2018-02-01] MEDS: ASPIRIN 81 MG CHEWABLE TABLETS PO SCH (10:45)
[2018-02-01] MEDS: FLUTICASONE PROP 0.05% 16 GM NASAL SPRAY NS SCH (10:46)
[2018-02-01] MEDS: CEFUROXIME AXETIL 500 MG TABLET PO SCH (10:46)
[2018-02-01] MEDS: POLYETHYLENE GLYCOL 3350 119 GM BTL PO SCH (10:46)
--- NOTE | 2018-02-01 11:59 | DS ---
Physical Examination Vital Signs: Vital Signs Temperature 98.3 F 02/01/18 06:00 Pulse Rate 69 02/01/18 06:00 Respiratory Rate 18 02/01/18 06:00 Blood Pressure 149/64 02/01/18 06:00 O2 Sat by Pulse Oximetry (%) 91 L 01/31/18 21:00 Constitutional: Yes: Well Nourished, No Distress Cardiovascular: Yes: WNL, Regular Rate and Rhythm Respiratory: Yes: WNL, Regular, CTA Bilaterally. No: Accessory Muscle Use, SOB , Tachypnea, Wheezes Gastrointestinal: Yes: WNL, Normal Bowel Sounds. No: Distention, Tenderness Edema: Yes Edema: LLE: Trace, RLE: Trace Neurological: Yes: WNL, Alert, Oriented Psychiatric: Yes: WNL, Alert, Oriented Labs: CBC, BMP 01/31/18 12:15 01/31/18 12:15 Discharge Summary Reason For Visit: CHRONIC COPD Current Active Problems COPD (chronic obstructive pulmonary disease) (Acute) GERD (gastroesophageal reflux disease) (Acute) Osteoarthritis (Acute) Pneumonia (Acute) Venous insufficiency (Acute) Hospital Course: is a pleasant 82 year old female who was admitted w/ hcap. Pt has been evaluated by ID and transitioned to po antibitics. She will continue po ceftin x 2 more days. Otherwise, wbcs wnl, vitals stable. Pt reports improvement of pleurisy and sob. Chest xray reveals clearing of LLL base changes. Pt is medically stable to be discharged from hospital to SNF. Advised to f/u with pcp as directed. Condition: Stable - Instructions Diet, Activity, Other Instructions: resume prev activity , diet f/u PCP as directed resume all prev meds antibiotic x 2 more days Referrals: Darell Claire MD [Primary Care Provider] - 1 Week [facility]position: [facility] - Home Medications Comprehensive Discharge Medication List: Ambulatory Orders Aspirin 81 mg PO DAILY 01/02/18 Atorvastatin Ca [Lipitor] 40 mg PO HS 01/02/18 Cyanocobalamin [Vitamin B12 -] 1,000 mcg PO DAILY 01/02/18 Escitalopram Oxalate [Lexapro -] 20 mg PO DAILY 01/02/18 Fluticasone Furoate [Flonase Sensimist] 9.9 ml NS BID 01/02/18 Furosemide 20 mg PO DAILY 01/02/18 Hydralazine HCl 50 mg PO TID 01/02/18 Levothyroxine Sodium [Levoxyl] 137 mcg PO ACBK 01/02/18 Pantoprazole Sodium 40 mg PO BID 01/02/18 Polyethylene Glycol 3350 [Miralax 119 gm Btl -] 17 gm PO DAILY 01/02/18 Valsartan 320 mg PO DAILY 01/02/18 Ropinirole HCl [Requip -] 0.25 mg PO BID tablet 01/06/18 Amlodipine Besylate [Norvasc -] 5 mg PO DAILY 01/28/18 Cholecalciferol (Vitamin D3) [Vitamin D3] 2,000 unit PO DAILY 01/28/18 Potassium Chloride [K-Dur -] 20 meq PO DAILY 01/28/18 Cefuroxime Axetil [Ceftin -] 500 mg PO BID 2 Days tablet 02/01/18
[2018-02-01 15:33] VITALS: BP 138/51; PULSE 68; TEMP 97.8
== END 2018-02-01 16:04 | DRG 194 ==
LOC: JER 12:05 → JERBED 15:48 → J8W 16:47
PROVIDERS: ADMIT Internal Medicine; ATTEND Internal Medicine
DX: J18.9 Pneumonia, unspecified organism (principal); I50.32 Chronic diastolic (congestive) heart failure; N39.0 Urinary tract infection, site not specified; I13.0 Hypertensive heart and chronic kidney disease with heart failure and stage 1 through stage 4 chronic kidney disease, or unspecified chronic kidney disease; N18.9 Chronic kidney disease, unspecified; I25.10 Atherosclerotic heart disease of native coronary artery without angina pectoris; J44.9 Chronic obstructive pulmonary disease, unspecified; K21.9 Gastro-esophageal reflux disease without esophagitis; E78.00 Pure hypercholesterolemia, unspecified; E03.9 Hypothyroidism, unspecified; K59.09 Other constipation; K29.60 Other gastritis without bleeding; B95.2 Enterococcus as the cause of diseases classified elsewhere; K44.9 Diaphragmatic hernia without obstruction or gangrene; M54.5 Low back pain; G25.81 Restless legs syndrome; I87.2 Venous insufficiency (chronic) (peripheral); M19.90 Unspecified osteoarthritis, unspecified site; Z95.2 Presence of prosthetic heart valve; Z95.5 Presence of coronary angioplasty implant and graft
CPT/HCPCS: 36415; 71045-TC-FY; 74176-TC; 80048; 80053; 81003; 82272; 82550; 82553; 82803; 83605; 83735; 83880; 84100; 84484; 85025; 85610; 85651; 85730; 86140; 86850; 86900; 86901; 87040; 87045; 87046; 87070; 87086; 87186; 87205; 87899; 93005; 93010; 94010; 94640; 94761; 97116-GP; 97161-GP; 99281-25; J0131

== ENCOUNTER 2018-03-07 16:50 | Observation (INO) | payer OTHER, BC ==
--- NOTE | 2018-03-07 17:24 | PDOC ---
Rapid Medical Evaluation Chief Complaint: Nausea/Vomiting Time Seen by Provider: 03/07/18 17:01 Medical Evaluation: Allergies Allergy/AdvReac Type Severity Reaction Status Date / Time codeine [Codeine] Allergy Verified 03/07/18 16:59 Iodinated Contrast- Oral and Allergy Verified 03/07/18 16:59 IV Dye meperidine HCl [From Demerol] Allergy Verified 03/07/18 16:59 Vital Signs Temp Pulse Resp BP Pulse Ox 98.4 F 73 19 144/52 95 03/07/18 16:59 03/07/18 16:59 03/07/18 16:59 03/07/18 16:59 03/07/18 16:59 03/07/18 17:21 I have performed a brief in-person evaluation of this patient. The patient presents with a chief complaint of: nausea and vomiting x 2 weeks, Bobbi Frankel sent for eval as has had remittant problems with now a weight loss x 10+pounds . No fevers/ no noted bleeding. Pertinent physical exam findings: pale, weak, + diffuse abd pain. I have ordered the following: CBC, CMP, Lipase, BNP, INR, UA The patient will proceed to the ED for further evaluation. 03/07/18 17:23 03/07/18 17:24 Discharge Disposition - Discharge Dispostion Last Admission D/C Date: 02/01/18 - Referrals - Patient Instructions - Post Discharge Activity
[2018-03-07 17:57] LABS: ALBUMIN 3.1 g/dl (3.4-5.0); ANION GAP 6 (8-16); BILIRUBIN,TOTAL 0.3 mg/dL (0.2-1.0); BLOOD UREA NITROGEN 24 mg/dL (7-18); CALCIUM 8.6 mg/dL (8.5-10.1); CHLORIDE 113 mmol/L (98-107); CO2 25 mmol/L (21-32); CREATININE 0.9 mg/dL (0.55-1.02); GLUCOSE,RANDOM 91 mg/dL (74-106); POTASSIUM 3.7 mmol/L (3.5-5.1); SGOT/AST 31 U/L (15-37); SGPT/ALT 26 U/L (12-78); SODIUM 144 mmol/L (136-145); TOT PROT 5.5 g/dl (6.4-8.2)
[2018-03-07 17:58] LABS: ALK PHOS 141 U/L (45-117)
[2018-03-07 17:59] LABS: BASO % 0.7 % (0-2.0); EOS % 6.9 % (0-4.5); HEMATOCRIT 33.8 % (32.4-45.2); INR 1.03 (0.82-1.09); LYMPH % 23.2 % (8-40); MCH 24.9 pg (25.7-33.7); MCHC 32.5 g/dl (32.0-36.0); MEAN CELL VOLUME 76.6 fl (80-96); MONO % 12.5 % (3.8-10.2); NEUT % 56.7 % (42.8-82.8); PLATELET COUNT 320 K/MM3 (134-434); PROTHROMBIN TIME (PATIENT) 11.6 SEC (9.7-13.0); RBC 4.41 M/mm3 (3.60-5.2); RDW 16.9 % (11.6-15.6); WHITE BLOOD COUNT 9.3 K/mm3 (4.0-10.0)
[2018-03-07 18:00] LABS: N-TERMINAL BNP 270.28 pg/ml (5-450)
--- NOTE | 2018-03-07 18:48 | PDOC ---
History of Present Illness - General History Source: Patient Exam Limitations: No Limitations - History of Present Illness Initial Comments: 03/07/18 19:32 The patient is a 82 year old female with a significant PMH of gait instability, diverticulitis (5 years ago), cholecystectomy, hysterectomy, COPD (last admitted 01/02-01/06/18 for COPD exacerbation, was subsequently on prednisone taper) , CHF, CAD (s/p 2 stents and balloon angioplasty), and HTN who presents to the emergency department with nausea and vomiting for the past two weeks, recent weight loss, and generalized weakness. The patient has been drinking gatorade at home with minimal relief. The patient was seen recently by Dr. Mercedes, and labs at the time showed no blood in the urine or stool. Dr. Mercedes recommended reglan but the patient had no relief of her symptoms prompting her to come to the ER. The patient denies having similar symptoms in the past. The patient is not on home O2 or inhaler. The patient denies chest pain, shortness of breath, headache and dizziness. Denies fever, chills, diarrhea and constipation. Denies dysuria, frequency, urgency and hematuria. Allergies: codeine Past surgical history: as noted above. Social history: No reported alcohol, drug, or cigarette use. PCP: Dr. Claire <Lena Verdin - Last Filed: 03/08/18 00:46> <Penelope Lozoya - Last Filed: 03/08/18 22:15> - General Chief Complaint: Nausea/Vomiting Stated Complaint: VOMITING Time Seen by Provider: 03/07/18 17:01 Past History <Lena Verdin - Last Filed: 03/08/18 00:46> - Past Medical History Anemia: No Asthma: No Cancer: No Cardiac Disorders: Yes (CARDIAC STENTS) CVA: No COPD: Yes CHF: Yes Dementia: No Diabetes: No GI Disorders: Yes (ACID REFLUX) Disorders: No HTN: Yes Hypercholesterolemia: Yes Liver Disease: No Seizures: No Thyroid Disease: Yes (thyroidectomy) - Surgical History Abdominal Surgery: No Appendectomy: No Cardiac Surgery: Yes (2 CARDIAC STENTS 2008) Cholecystectomy: Yes Lung Surgery: No Neurologic Surgery: No Orthopedic Surgery: Yes (RIGHT KNEE ARTHROSCOPY) - Suicide/Smoking/Psychosocial Hx Smoking History: Never smoked Have you smoked in the past 12 months: No Number of Cigarettes Smoked Daily: 0 Hx Alcohol Use: No Drug/Substance Use Hx: No Substance Use Type: None Hx Substance Use Treatment: No <DarellPenelope Elissa - Last Filed: 03/08/18 22:15> - Past Medical History Allergies/Adverse Reactions: Allergies Allergy/AdvReac Type Severity Reaction Status Date / Time codeine [Codeine] Allergy Verified 03/07/18 16:59 Iodinated Contrast- Oral and Allergy Verified 03/07/18 16:59 IV Dye meperidine HCl [From Demerol] Allergy Verified 03/07/18 16:59 Home Medications: Ambulatory Orders Aspirin 81 mg PO DAILY 01/02/18 Atorvastatin Ca [Lipitor] 40 mg PO HS 01/02/18 Cyanocobalamin [Vitamin B12 -] 1,000 mcg PO DAILY 01/02/18 Escitalopram Oxalate [Lexapro -] 20 mg PO DAILY 01/02/18 Furosemide 20 mg PO DAILY 01/02/18 Hydralazine HCl 50 mg PO TID 01/02/18 Levothyroxine Sodium [Levoxyl] 137 mcg PO ACBK 01/02/18 Pantoprazole Sodium 40 mg PO BID 01/02/18 Polyethylene Glycol 3350 [Miralax 119 gm Btl -] 17 gm PO DAILY 01/02/18 Valsartan 320 mg PO DAILY 01/02/18 Amlodipine Besylate [Norvasc -] 5 mg PO DAILY 01/28/18 Cholecalciferol (Vitamin D3) [Vitamin D3] 2,000 unit PO DAILY 01/28/18 Potassium Chloride [K-Dur -] 20 meq PO DAILY 01/28/18 Review of Systems - Review of Systems Able to Perform ROS?: Yes Comments:: 03/07/18 19:33 CONSTITUTIONAL: Absent: fever, no chills, no fatigue EYES: Absent: visual changes ENT: Absent: ear pain, no sore throat CARDIOVASCULAR: Absent: chest pain, no palpitations RESPIRATORY: Absent: cough, no SOB GI: Absent: abdominal pain, no constipation, no diarrhea Present: Nausea. Vomiting. GENITOURINARY: Absent: dysuria, no frequency, no hematuria MUSKULOSKELETAL: Absent: back pain, no arthralgia, no myalgia SKIN: Absent: rash NEURO: Absent: headache <Lena Verdin - Last Filed: 03/08/18 00:46> *Physical Exam - Vital Signs Last Vital Signs Temp Pulse Resp BP Pulse Ox 98.4 F 73 19 144/52 95 03/07/18 16:59 03/07/18 16:59 03/07/18 16:59 03/07/18 16:59 03/07/18 16:59 - Physical Exam Comments: 03/07/18 19:34 GENERAL: Well-appearing, well-nourished. No apparent distress. HEENT: Normocephalic, atraumatic. PERRL, EOM intact. CARDIOVASCULAR: Normal S1, S2. Regular rate and rhythm. PULMONARY: Clear to auscultation bilaterally. ABDOMEN: Soft, non-distended, non-tender. EXTREMITIES: Normal ROM in all four extremities. No gross deformities. SKIN: Warm, dry. No rash NEUROLOGICAL: No focal neurological deficits. <Lena Verdin - Last Filed: 03/08/18 00:46> - Vital Signs Last Vital Signs Temp Pulse Resp BP Pulse Ox 98.4 F 73 19 144/52 95 03/07/18 16:59 03/07/18 16:59 03/07/18 16:59 03/07/18 16:59 03/07/18 16:59 <Penelope Lozoya - Last Filed: 03/08/18 22:15> ED Treatment Course - LABORATORY CBC & Chemistry Diagram: 03/07/18 17:30 03/07/18 17:30 - ADDITIONAL ORDERS Additional order review: Laboratory Results 03/07/18 03/07/18 03/07/18 17:44 17:30 17:30 PT with INR 11.60 INR 1.03 Sodium Potassium Chloride Carbon Dioxide Anion Gap BUN Creatinine Creat Clearance w eGFR Random Glucose Calcium Total Bilirubin AST ALT Alkaline Phosphatase B-Natriuretic Peptide 270.28 Total Protein Albumin Lipase 258 Urine Color Straw Urine Appearance Clear Urine pH 5.0 Ur Specific [place] 1.012 Urine Protein Negative Urine Glucose (UA) Negative Urine Ketones Negative Urine Blood Negative Urine Nitrite Negative Urine Bilirubin Negative Urine Urobilinogen Negative Ur Leukocyte Esterase Negative 03/07/18 17:30 PT with INR INR Sodium 144 Potassium 3.7 Chloride 113 H Carbon Dioxide 25 Anion Gap 6 L BUN 24 H Creatinine 0.9 Creat Clearance w eGFR 59.65 Random Glucose 91 Calcium 8.6 Total Bilirubin 0.3 AST 31 ALT 26 Alkaline Phosphatase 141 H B-Natriuretic Peptide Total Protein 5.5 L Albumin 3.1 L Lipase Urine Color Urine Appearance Urine pH Ur Specific [place] Urine Protein Urine Glucose (UA) Urine Ketones Urine Blood Urine Nitrite Urine Bilirubin Urine Urobilinogen Ur Leukocyte Esterase 03/07/18 17:30 RBC 4.41 MCV 76.6 L MCHC 32.5 RDW 16.9 H MPV 9.0 Neutrophils % 56.7 Lymphocytes % 23.2 Monocytes % 12.5 H Eosinophils % 6.9 H D Basophils % 0.7 <Lena Verdin - Last Filed: 03/08/18 00:46> - LABORATORY CBC & Chemistry Diagram: 03/08/18 06:34 03/08/18 06:34 - ADDITIONAL ORDERS Additional order review: Laboratory Results 03/07/18 03/07/18 17:30 17:30 Sodium 144 Potassium 3.7 Chloride 113 H Carbon Dioxide 25 Anion Gap 6 L BUN 24 H Creatinine 0.9 Creat Clearance w eGFR 59.65 Random Glucose 91 Calcium 8.6 Total Bilirubin 0.3 AST 31 ALT 26 Alkaline Phosphatase 141 H B-Natriuretic Peptide 270.28 Total Protein 5.5 L Albumin 3.1 L Lipase 258 03/07/18 17:30 RBC 4.41 MCV 76.6 L MCHC 32.5 RDW 16.9 H MPV 9.0 Neutrophils % 56.7 Lymphocytes % 23.2 Monocytes % 12.5 H Eosinophils % 6.9 H D Basophils % 0.7 <Penelope Lozoya - Last Filed: 03/08/18 22:15> Medical Decision Making - Medical Decision Making 03/07/18 20:48 Dr. Mercedes was paged. 03/07/18 21:13 Case d/w Dr. Estrada (GI). He will follow her. 03/08/18 00:46 Imaging: Abdomen and pelvis CT scan Reported by: Dr. Ferguson Impression: Solid right hepatic lobe lesion may be followed up nonemergent dynamic contrast enhanced CT or MRI. Mild bilateral renal scarring. Left iliac bone Pagets disease. No definite evidence of acute pathology. <Lena Verdin - Last Filed: 03/08/18 00:46> - Medical Decision Making 03/08/18 22:14 pt admitted for further GI w/u <Penelope Lozoya - Last Filed: 03/08/18 22:15> *DC/Admit/Observation/Transfer - Attestations Scribe Attestion: 03/07/18 19:35 Documentation prepared by Lena Verdin, acting as medical office assistant for Penelope Lozoya MD. <Lena Verdin - Last Filed: 03/08/18 00:46> - Discharge Dispostion Decision to Admit order: Yes <Penelope Lozoya - Last Filed: 03/08/18 22:15> Diagnosis at time of Disposition: Reflux esophagitis Nausea & vomiting Qualifiers: Vomiting type: unspecified Vomiting Intractability: non-intractable Qualified Code(s): R11.2 - Nausea with vomiting, unspecified
[2018-03-07] MEDS ORDERED: SODIUM CHLORIDE 500 ML IV STA ×2 (18:50→20:51)
[2018-03-07] MEDS ORDERED: ONDANSETRON 4 MG/2 ML VIAL IVPUSH ONE (18:50)
[2018-03-07 19:27] LABS: URINE APPEARANCE CLEAR; URINE BILIRUBIN NEGATIVE (<2.0 mg/dL); URINE BLOOD NEGATIVE (NEGATIVE); URINE COLOR STRAW; URINE GLUCOSE (UA) NEGATIVE (NEGATIVE); URINE KETONE NEGATIVE (NEGATIVE); URINE LEUK ESTERASE NEGATIVE (NEGATIVE); URINE NITRITE NEGATIVE (NEGATIVE); URINE PROTEIN NEGATIVE (NEGATIVE); URINE UROBILINOGEN NEGATIVE mg/dL (0.2-1.0)
[2018-03-07] MEDS ORDERED: ONDANSETRON 4 MG/2 ML VIAL ONE (19:50)
[2018-03-07] MEDS ORDERED: PANTOPRAZOLE SODIUM 40 MG VIAL IVPUSH ONE (20:41)
[2018-03-07] MEDS ORDERED: PANTOPRAZOLE SODIUM 40 MG/100 ML BAG IVPB ONE (20:58)
--- NOTE | 2018-03-08 01:36 | PN ---
Teaching Attending Note Name of Resident: Tommy Mcguire ATTENDING PHYSICIAN STATEMENT I saw and evaluated the patient. I reviewed the resident's note and discussed the case with the resident. I agree with the resident's findings and plan as documented. SUBJECTIVE: Patient is an 82 year old woman with a significant PMH of gait instability, diverticulitis (5 years ago), cholecystectomy, hysterectomy, COPD (last admitted 01/02-01/06/18 for COPD exacerbation, was subsequently on prednisone taper) , CHF, CAD (s/p 2 stents and balloon angioplasty), and HTN who presents to the emergency department with nausea and vomiting for the past two weeks, 12 lbs unintentional weight loss in one month, and generalized weakness. The patient has been drinking gatorade at home with minimal relief. The patient was seen recently by Dr. Mercedes, and labs at the time showed no blood in the urine or stool. Dr. Mercedes recommended Reglan but she had no relief. OBJECTIVE: Vital Signs Period Temp Pulse Resp BP Sys/Rios Pulse Ox Last 24 Hr 98.4 F 68-73 19-20 140-144/44-52 94-95 HEENT: No Jaundice, eye redness or discharge, PERRLA, EOMI. Normocephalic, atraumatic. External ears are normal and hearing is grossly intact. No nasal discharge. Neck: Supple, nontender. No palpable adenopathy or thyromegaly. No JVD Chest: Good effort. Clear to auscultation and percussion. Heart: Regular. No S3, rub or murmur Abdomen: Not distended, soft, mild upper abdominal tenderness and no HSM. No rebound or guarding. Normoactive bowel sounds. Ext: Peripheral pulses intact. Trace leg edema. Skin: Warm and dry. No petechiae, rash or ecchymosis. Neuro: Alert. Oriented x3. CN 2-12 grossly intact. Sensation grossly intact in all four extremities and DTR are symmetric. Home Medications Medication Instructions Recorded Aspirin 81 mg PO DAILY 01/02/18 Atorvastatin Ca [Lipitor] 40 mg PO HS 01/02/18 Cyanocobalamin [Vitamin B12 -] 1,000 mcg PO DAILY 01/02/18 Escitalopram Oxalate [Lexapro -] 20 mg PO DAILY 01/02/18 Furosemide 20 mg PO DAILY 01/02/18 Hydralazine HCl 50 mg PO TID 01/02/18 Levothyroxine Sodium [Levoxyl] 137 mcg PO ACBK 01/02/18 Pantoprazole Sodium 40 mg PO BID 01/02/18 Polyethylene Glycol 3350 [Miralax 17 gm PO DAILY 01/02/18 119 gm Btl -] Valsartan 320 mg PO DAILY 01/02/18 Amlodipine Besylate [Norvasc -] 5 mg PO DAILY 01/28/18 Cholecalciferol (Vitamin D3) 2,000 unit PO DAILY 01/28/18 [Vitamin D3] Potassium Chloride [K-Dur -] 20 meq PO DAILY 01/28/18 Abnormal Lab Results 03/07/18 03/07/18 17:30 17:30 MCV 76.6 L MCH 24.9 L RDW 16.9 H Monocytes % 12.5 H Eosinophils % 6.9 H D Chloride 113 H Anion Gap 6 L BUN 24 H Alkaline Phosphatase 141 H Total Protein 5.5 L Albumin 3.1 L Current Medications Generic Name Dose Route Start Last Admin Trade Name Freq PRN Reason Stop Dose Admin Sodium Chloride 1,000 mls @ 50 mls/hr 03/08/18 03:45 Normal Saline - IV 03/09/18 03:34 ASDIR HUNTER Ondansetron HCl 4 mg 03/08/18 03:31 Zofran Injection IVPUSH Q6H PRN NAUSEA Pantoprazole Sodium 40 mg 03/08/18 10:00 Protonix Iv IVPUSH DAILY [facility]UNTER ASSESSMENT AND PLAN: 1. Nausea and Vomiting - Etiology is unclear, but gastritis/enteritis of unknown cause must be ruled out. CT abdomen is negative. Patient scheduled for gastric emptying studies and small bowel series. May need to sequentially withhold some of her medications, since drug side effect may also be a contributing factor. Will give gentle hydration (find old ECHO to confirm CHF), zofran PRN and protonix. 2. Right hepatic mass - Needs further workup to exclude malignancy. Oncology consult and send blood for alpha fetoprotein. She has family history of cancer. 3. DVT prophylaxis - Heparin 5000u sq tid 4. Advance directives - Full code
--- NOTE | 2018-03-08 02:20 | HP ---
CHIEF COMPLAINT: PCP: Dr. Claire HISTORY OF PRESENT ILLNESS: The patient is an 82 yo f w/ PMH COPD, CAD s/p stenting, HTN who comes into the ED c/o a 2 week history of nausea and NBNB vomiting. The patient's symptoms started 2 weeks ago, where she first experienced Nausea and abdominal pain for 1 week, then vomiting for the second week. Patient also endorses generalized weakness over the past week and a 12lb unintentional weight loss over the last month. The patient has been able tolerate minimal PO intake, but experiences nausea if her meals are not "very small and light." The patient was seen by Dr. Mercedes this past and was prescribed Reglan without relief. The patient denies any similar episodes in the past or changes in diet or lifestyle. Patient denies chest pain, fevers, chills, SOB, diarrhea, constipation. ER course was notable for: (1) IV Zofran (2) CT abdomen/pelvis showing 1.5 cm opacity in right hepatic lobe, left illica bone paget's disease and mild b/l renal scarring (3) CXR w/o acute pathology Recent Travel: PAST MEDICAL HISTORY: COPD, CHF, CAD, HTN, GERD, HLD PAST SURGICAL HISTORY: -2 stents inserted in 2008 -Cholecystectomy -right knee arthroscopy -hysterectomy -thyroidectomy for growing nodule Social History: Smoking: never smoked Alcohol: denies Drugs: denies Family History: Patient had 2 sisters with cervical cancer and one brother who from prostate cancer Allergies codeine [Codeine] Allergy (Verified 03/07/18 16:59) Iodinated Contrast- Oral and IV Dye Allergy (Verified 03/07/18 16:59) meperidine HCl [From Demerol] Allergy (Verified 03/07/18 16:59) HOME MEDICATIONS: Home Medications Medication Instructions Recorded Aspirin 81 mg PO DAILY 01/02/18 Atorvastatin Ca [Lipitor] 40 mg PO HS 01/02/18 Cyanocobalamin [Vitamin B12 -] 1,000 mcg PO DAILY 01/02/18 Escitalopram Oxalate [Lexapro -] 20 mg PO DAILY 01/02/18 Furosemide 20 mg PO DAILY 01/02/18 Hydralazine HCl 50 mg PO TID 01/02/18 Levothyroxine Sodium [Levoxyl] 137 mcg PO ACBK 01/02/18 Pantoprazole Sodium 40 mg PO BID 01/02/18 Polyethylene Glycol 3350 [Miralax 17 gm PO DAILY 01/02/18 119 gm Btl -] Valsartan 320 mg PO DAILY 01/02/18 Amlodipine Besylate [Norvasc -] 5 mg PO DAILY 01/28/18 Cholecalciferol (Vitamin D3) 2,000 unit PO DAILY 01/28/18 [Vitamin D3] Potassium Chloride [K-Dur -] 20 meq PO DAILY 01/28/18 REVIEW OF SYSTEMS CONSTITUTIONAL: Absent: fever, chills, diaphoresis, malaise HEENT: Absent: rhinorrhea, nasal congestion, throat pain, throat swelling, difficulty swallowing, mouth swelling, ear pain, eye pain, visual changes CARDIOVASCULAR: Absent: chest pain, syncope, palpitations, irregular heart rate, lightheadedness , peripheral edema RESPIRATORY: Absent: cough, shortness of breath, dyspnea with exertion, orthopnea, wheezing, stridor, hemoptysis GASTROINTESTINAL: Absent: abdominal distension, diarrhea, constipation, melena, hematochezia GENITOURINARY: Absent: dysuria, frequency, urgency, hesitancy, hematuria, flank pain, genital pain MUSCULOSKELETAL: Absent: myalgia, arthralgia, joint swelling, back pain, neck pain SKIN: Absent: rash, itching, pallor HEMATOLOGIC/IMMUNOLOGIC: Absent: easy bleeding, easy bruising, lymphadenopathy, frequent infections ENDOCRINE: Absent: unexplained weight gain, unexplained weight loss, heat intolerance, cold intolerance NEUROLOGIC: Absent: headache, focal weakness or paresthesias, dizziness, unsteady gait, seizure, mental status changes, bladder or bowel incontinence PSYCHIATRIC: Absent: anxiety, depression, suicidal or homicidal ideation, hallucinations. PHYSICAL EXAMINATION Vital Signs - 24 hr 03/07/18 03/07/18 03/08/18 16:59 20:35 01:55 Temperature 98.4 F 98.4 F Pulse Rate 73 Pulse Rate [ 68 62 Radial] Respiratory 19 20 17 Rate Blood Pressure 144/52 Blood Pressure 140/44 151/60 [Left Arm] O2 Sat by Pulse 95 94 L 95 Oximetry (%) GENERAL: Awake, alert, and fully oriented, in no acute distress. HEAD: Normal with no signs of trauma. EYES: Pupils equal, round and reactive to light, extraocular movements intact, sclera anicteric, conjunctiva clear. No lid lag. EARS, NOSE, THROAT: oropharynx clear without exudates. dry mucous membranes. NECK: Normal range of motion, supple without lymphadenopathy, JVD, or masses. LUNGS: Breath sounds equal, clear to auscultation bilaterally. No wheezes, and no crackles. No accessory muscle use. HEART: Regular rate and rhythm, normal S1 and S2 without murmur, rub or gallop. ABDOMEN: Soft, nontender, not distended, normoactive bowel sounds. patient experiences moderate discomfort when the upper quadrants are palpated. No hepatomegaly or splenomegaly. LOWER EXTREMITIES: 2+ pulses, warm, well-perfused. No calf tenderness. 1+ pitting edema b/l . NEUROLOGICAL: Cranial nerves II-X intact. Normal speech. SKIN: Warm, dry, normal turgor, no rashes or lesions noted, normal capillary refill. Laboratory Results - last 24 hr 03/07/18 03/07/18 03/07/18 17:28 17:30 17:30 WBC 9.3 RBC 4.41 Hgb 11.0 Hct 33.8 MCV 76.6 L MCH 24.9 L MCHC 32.5 RDW 16.9 H Plt Count 320 MPV 9.0 Absolute Neuts (auto) 5.2 Neutrophils % 56.7 Lymphocytes % 23.2 Monocytes % 12.5 H Eosinophils % 6.9 H D Basophils % 0.7 Nucleated RBC % 0 PT with INR INR Sodium 144 Potassium 3.7 Chloride 113 H Carbon Dioxide 25 Anion Gap 6 L BUN 24 H Creatinine 0.9 Creat Clearance w eGFR 59.65 Random Glucose 91 Calcium 8.6 Total Bilirubin 0.3 AST 31 ALT 26 Alkaline Phosphatase 141 H Creatine Kinase 89 Troponin I < 0.02 B-Natriuretic Peptide Total Protein 5.5 L Albumin 3.1 L Lipase Urine Color Urine Appearance Urine pH Ur Specific [place] Urine Protein Urine Glucose (UA) Urine Ketones Urine Blood Urine Nitrite Urine Bilirubin Urine Urobilinogen Ur Leukocyte Esterase 03/07/18 03/07/18 03/07/18 17:30 17:30 17:44 WBC RBC Hgb Hct MCV MCH MCHC RDW Plt Count MPV Absolute Neuts (auto) Neutrophils % Lymphocytes % Monocytes % Eosinophils % Basophils % Nucleated RBC % PT with INR 11.60 INR 1.03 Sodium Potassium Chloride Carbon Dioxide Anion Gap BUN Creatinine Creat Clearance w eGFR Random Glucose Calcium Total Bilirubin AST ALT Alkaline Phosphatase Creatine Kinase Troponin I B-Natriuretic Peptide 270.28 Total Protein Albumin Lipase 258 Urine Color Straw Urine Appearance Clear Urine pH 5.0 Ur Specific [place] 1.012 Urine Protein Negative Urine Glucose (UA) Negative Urine Ketones Negative Urine Blood Negative Urine Nitrite Negative Urine Bilirubin Negative Urine Urobilinogen Negative Ur Leukocyte Esterase Negative ASSESSMENT/PLAN: Patient is an 82 yo f w/ PMH COPD, CAD, HTN who comes in c/o a 2 week hx n/v and weight loss found to have a liver lesion. #1.5 cm liver lesion -given strong family hx and weight loss, it is possible this may be a malignancy -oncology consulted -further workup per oncology #N/V -Zofran 4mg q6h PRN -Protonix 40mg IV daily -NPO -GI consulted -IVF #FEN -NS @50 -monitor lytes, replete PRN -NPO #Dispo -admit Obs Visit type - Emergency Visit Emergency Visit: Yes ED Registration Date: 03/08/18 Care time: The patient presented to the Emergency Department on the above date and was hospitalized for further evaluation of their emergent condition. - New Patient This patient is new to me today: Yes Date on this admission: 03/08/18 - Critical Care Critical Care patient: No Hospitalist Screening - Colonoscopy Questionnaire Colonoscopy Questionnaire: Colonoscopy Questionnaire - Patient: 50 - 75 years old and never had a screening colonoscopy: Unknown History of colon or rectal polyps, or CA: Unknown History of IBD, Crohn's disease or UC: Unknown History of abdominal radiation therapy as a child: Unknown - Relative: 1 with colon or rectal CA, or polyps at age 60 or younger: Unknown Colon or rectal CA diagnosed at age 45 or younger: Unknown Multiple relatives with colon or rectal CA: Unknown - Outcome: Screening Result: Negative Screen
[2018-03-08] MEDS ORDERED: ONDANSETRON 4 MG/2 ML VIAL IVPUSH PRN (03:31)
[2018-03-08] MEDS ORDERED: SODIUM CHLORIDE 1,000 ML IV SCH (03:45)
[2018-03-08 06:52] LABS: HEMATOCRIT 28.3 % (32.4-45.2); HEMOGLOBIN 9.3 GM/dL (10.7-15.3); MCH 25.1 pg (25.7-33.7); MCHC 32.8 g/dl (32.0-36.0); MEAN CELL VOLUME 76.5 fl (80-96); MEAN PLT VOLUME 8.6 fl (7.5-11.1); PLATELET COUNT 230 K/MM3 (134-434); RBC 3.69 M/mm3 (3.60-5.2); RDW 17.1 % (11.6-15.6); WHITE BLOOD COUNT 7.3 K/mm3 (4.0-10.0)
[2018-03-08 07:22] LABS: CHLORIDE 111 mmol/L (98-107); POTASSIUM 3.3 mmol/L (3.5-5.1); SODIUM 142 mmol/L (136-145)
[2018-03-08 08:51] LABS: ALBUMIN 2.5 g/dl (3.4-5.0); BILIRUBIN,TOTAL 0.4 mg/dL (0.2-1.0); BLOOD UREA NITROGEN 20 mg/dL (7-18); CALCIUM 8.7 mg/dL (8.5-10.1); CREATININE 0.7 mg/dL (0.55-1.02); GLUCOSE,RANDOM 79 mg/dL (74-106); MAGNESIUM 1.9 mg/dL (1.8-2.4); PHOSPHOROUS 3.3 mg/dL (2.5-4.9); SGOT/AST 31 U/L (15-37); TOT PROT 4.4 g/dl (6.4-8.2)
[2018-03-08 09:39] LABS: ANION GAP 9 (8-16); CO2 22 mmol/L (21-32)
[2018-03-08] MEDS ORDERED: PANTOPRAZOLE SODIUM 40 MG VIAL IVPUSH SCH (10:00)
--- NOTE | 2018-03-08 10:36 | PN ---
Progress Note, Physician Chief Complaint: Ms Dorantes says she feels better today. Says she is hungry and wants to eat. No cp or sob. - Current Medication List Current Medications: Active Medications Sodium Chloride (Normal Saline -) 1,000 mls @ 50 mls/hr IV ASDIR [facility] Stop: 03/09/18 03:34 Last Admin: 03/08/18 05:26 Dose: 50 mls/hr Ondansetron HCl (Zofran Injection) 4 mg IVPUSH Q6H PRN PRN Reason: NAUSEA Pantoprazole Sodium (Protonix Iv) 40 mg IVPUSH DAILY [facility] Last Admin: 03/08/18 09:32 Dose: 40 mg Potassium Chloride (Potassium Chloride 20 Meq Premix Ivpb -) 20 meq IVPB ONCE ONE Stop: 03/08/18 10:26 - Objective Vital Signs: Vital Signs Temperature 36.3 C L 03/08/18 08:27 Pulse Rate 71 03/08/18 08:27 Respiratory Rate 20 03/08/18 08:27 Blood Pressure 142/78 03/08/18 08:27 O2 Sat by Pulse Oximetry (%) 94 L 03/08/18 08:27 Constitutional: Yes: No Distress, Calm, Obese Cardiovascular: Yes: Regular Rate and Rhythm. No: Gallop, Murmur, Rub Respiratory: Yes: Regular, CTA Bilaterally. No: Rales, Rhonchi, Wheezes Gastrointestinal: Yes: Normal Bowel Sounds, Soft. No: Distention, Tenderness Extremities: Yes: WNL Edema: No Labs: CBC, BMP 03/08/18 06:34 03/08/18 06:34 INR, PTT INR 1.03 (0.82-1.09) 03/07/18 17:30 Problem List - Problems (1) Nausea & vomiting Assessment/Plan: -unclear cause -CT scan unchanged from prior -awaiting GI and oncology recommendations -appears resolved currently -will start on diet today and monitor if nausea/vomiting recurs -note that she says she lost 12lbs but per last admission she is down 1kg Code(s): R11.2 - NAUSEA WITH VOMITING, UNSPECIFIED Qualifiers: Vomiting type: unspecified Vomiting Intractability: non-intractable Qualified Code(s): R11.2 - Nausea with vomiting, unspecified (2) Hypokalemia Assessment/Plan: -replace with IV potassium -recheck in am Code(s): E87.6 - HYPOKALEMIA (3) Congestive cardiac failure Assessment/Plan: -not in exacerbation -will stop IVF since advancing diet -hold lasix currently Code(s): I50.9 - HEART FAILURE, UNSPECIFIED (4) GERD (gastroesophageal reflux disease) Assessment/Plan: -change protonix to oral Code(s): K21.9 - GASTRO-ESOPHAGEAL REFLUX DISEASE WITHOUT ESOPHAGITIS Qualifiers: Esophagitis presence: without esophagitis Qualified Code(s): K21.9 - Gastro -esophageal reflux disease without esophagitis (5) Hyperlipidemia Assessment/Plan: -normally on lipitor -will hold currently Code(s): E78.5 - HYPERLIPIDEMIA, UNSPECIFIED (6) Hypertension Assessment/Plan: -high normal -however normally on 4 antihypertensives -will hold an monitor, restart if blood pressure continues to elevate Code(s): I10 - ESSENTIAL (PRIMARY) HYPERTENSION Qualifiers: Hypertension type: essential hypertension Qualified Code(s): I10 - Essential (primary) hypertension (7) Hypothyroid Assessment/Plan: -can restart synthroid Code(s): E03.9 - HYPOTHYROIDISM, UNSPECIFIED Qualifiers:
[2018-03-08] MEDS ORDERED: KCL 10 MEQ IVPB 10 MEQ/100 ML INFUS.BAG IVPB ONE ×2 (11:39→12:34)
[2018-03-08] MEDS: POTASSIUM CHLORIDE 10 MEQ PREMIX IVPB (POTASSIUM RIDER) IVPB SCH ×2 (11:49→12:35)
[2018-03-08 12:54] LABS: SGPT/ALT 23 U/L (12-78)
[2018-03-08 12:57] LABS: ALK PHOS 123 U/L (45-117)
--- NOTE | 2018-03-08 13:14 | EKG ---
Test Reason : Blood Pressure : / mmHG Vent. Rate : 065 BPM Atrial Rate : 065 BPM P-R Int : 224 ms QRS Dur : 086 ms QT Int : 478 ms P-R-T Axes : 052 019 021 degrees QTc Int : 497 ms SINUS RHYTHM WITH 1ST DEGREE A-V BLOCK PROLONGED QT ABNORMAL ECG WHEN COMPARED WITH ECG OF 28-JAN-2018 12:13, NM INTERVAL HAS INCREASED Confirmed by MD LYNN, MAIA ([id number]) on 03/08/2018 1:13:41 PM Referred By: Confirmed By:MAIA BAILEY MD
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
[2018-03-08 17:54] VITALS: BMI 30.9
[2018-03-08] MEDS: PANTOPRAZOLE 40 MG TABLET (FP) PO SCH (21:35)
[2018-03-09] MEDS ORDERED: hydrALAZINE HCL 50 MG TABLET (FP) PO ONE (01:48)
--- NOTE | 2018-03-09 01:51 | HOSP ---
Physical Examination Vital Signs: Vital Signs Temperature 98.1 F 03/08/18 21:38 Pulse Rate 62 03/08/18 21:38 Respiratory Rate 18 03/08/18 21:38 Blood Pressure 151/60 03/08/18 21:38 O2 Sat by Pulse Oximetry (%) 96 03/08/18 21:45 Labs: CBC, BMP 03/08/18 06:34 03/08/18 06:34 Hospitalist Encounter Assessment: HTN - nurse called to report pt BP 179/76. BP meds on hold d/t n/v - no vomiting at present - will restart home hydralazine with hold parameters
[2018-03-09] MEDS ORDERED: LEVOTHYROXINE NA 112 MCG TABLET (FP) ONE (06:01)
[2018-03-09] MEDS ORDERED: LEVOTHYROXINE NA 25 MCG TABLET (FP) ONE (06:01)
[2018-03-09] MEDS: LEVOTHYROXINE 112 MCG, LEVOTHYROXINE 25 MCG PO SCH (06:09)
[2018-03-09] MEDS ORDERED: LEVOTHYROXINE SODIUM 137 MCG PO SCH (07:00)
[2018-03-09 07:53] LABS: BASO % 0.6 % (0-2.0); EOS % 9.9 % (0-4.5); HEMOGLOBIN 9.5 GM/dL (10.7-15.3); LYMPH % 21.9 % (8-40); MCH 24.8 pg (25.7-33.7); MCHC 32.6 g/dl (32.0-36.0); MEAN CELL VOLUME 76.2 fl (80-96); MEAN PLT VOLUME 8.8 fl (7.5-11.1); MONO % 12.9 % (3.8-10.2); NEUT % 54.7 % (42.8-82.8); PLATELET COUNT 246 K/MM3 (134-434); RBC 3.81 M/mm3 (3.60-5.2); RDW 16.8 % (11.6-15.6); WHITE BLOOD COUNT 6.8 K/mm3 (4.0-10.0)
[2018-03-09 08:22] LABS: CHLORIDE 113 mmol/L (98-107); POTASSIUM 3.4 mmol/L (3.5-5.1); SODIUM 144 mmol/L (136-145)
[2018-03-09 08:42] LABS: ALBUMIN 2.6 g/dl (3.4-5.0); ALK PHOS 131 U/L (45-117); ANION GAP 8 (8-16); BILIRUBIN,DIRECT < 0.2 mg/dL (0.0-0.2); BILIRUBIN,TOTAL 0.4 mg/dL (0.2-1.0); BLOOD UREA NITROGEN 14 mg/dL (7-18); CO2 23 mmol/L (21-32); CREATININE 0.7 mg/dL (0.55-1.02); GLUCOSE,RANDOM 78 mg/dL (74-106); PHOSPHOROUS 2.8 mg/dL (2.5-4.9); SGOT/AST 31 U/L (15-37); SGPT/ALT 24 U/L (12-78); TOT PROT 4.7 g/dl (6.4-8.2)
--- NOTE | 2018-03-09 09:02 | PN ---
Progress Note (short form) - Note Progress Note: Dr. Shelby to document today. For GI this AM I D/Yaw lexapro for a few days to see if that is causing her nausea.
[2018-03-09] MEDS ORDERED: ESCITALOPRAM OXALATE 20 MG TABLET (FP) PO SCH (10:00)
[2018-03-09] MEDS: PANTOPRAZOLE 40 MG TABLET (FP) PO SCH ×2 (10:37→21:29)
[2018-03-09] MEDS: CYANOCOBALAMIN 1,000 MCG TABLET (FP) PO SCH (10:37)
--- NOTE | 2018-03-09 12:33 | PN ---
Progress Note, Physician Chief Complaint: Ms Dorantes says she is feeling better. No cp or sob. She is eating a normal diet and tolerating. Currently without nausea or vomiting - Current Medication List Current Medications: Active Medications Cyanocobalamin (Vitamin B12 -) 1,[address] [facility] Last Admin: 03/09/18 10:37 Dose: 1,000 mcg Hydralazine HCl (Apresoline -) [address] [facility] Levothyroxine Sodium 112 mcg/ (Levothyroxine Sodium 25 mcg) 137 mcg PO DAILY@ 0700 [facility] Last Admin: 03/09/18 06:09 Dose: 137 mcg Ondansetron HCl (Zofran Injection) 4 mg IVPUSH Q6H PRN PRN Reason: NAUSEA Last Admin: 03/09/18 10:43 Dose: 4 mg Pantoprazole Sodium (Protonix -) [address] [facility] Last Admin: 03/09/18 10:37 Dose: 40 mg - Objective Vital Signs: Vital Signs Temperature 36.5 C 03/09/18 09:00 Pulse Rate 73 03/09/18 09:00 Respiratory Rate 18 03/09/18 09:00 Blood Pressure 120/50 03/09/18 09:00 O2 Sat by Pulse Oximetry (%) 96 03/08/18 21:45 Constitutional: Yes: No Distress, Calm, Obese Cardiovascular: Yes: Regular Rate and Rhythm. No: Gallop, Murmur, Rub Respiratory: Yes: Regular, CTA Bilaterally. No: Rales, Rhonchi, Wheezes Gastrointestinal: Yes: Normal Bowel Sounds, Soft. No: Distention, Tenderness Extremities: Yes: WNL Edema: No Labs: CBC, BMP 03/09/18 06:00 03/09/18 06:00 INR, PTT INR 1.03 (0.82-1.09) 03/07/18 17:30 Problem List - Problems (1) Nausea & vomiting Code(s): R11.2 - NAUSEA WITH VOMITING, UNSPECIFIED Qualifiers: Vomiting type: unspecified Vomiting Intractability: non-intractable Qualified Code(s): R11.2 - Nausea with vomiting, unspecified (2) Hypokalemia Code(s): E87.6 - HYPOKALEMIA (3) Congestive cardiac failure Code(s): I50.9 - HEART FAILURE, UNSPECIFIED (4) GERD (gastroesophageal reflux disease) Code(s): K21.9 - GASTRO-ESOPHAGEAL REFLUX DISEASE WITHOUT ESOPHAGITIS Qualifiers: Esophagitis presence: without esophagitis Qualified Code(s): K21.9 - Gastro -esophageal reflux disease without esophagitis (5) Hyperlipidemia Code(s): E78.5 - HYPERLIPIDEMIA, UNSPECIFIED (6) Hypertension Code(s): I10 - ESSENTIAL (PRIMARY) HYPERTENSION Qualifiers: Hypertension type: essential hypertension Qualified Code(s): I10 - Essential (primary) hypertension (7) Hypothyroid Code(s): E03.9 - HYPOTHYROIDISM, UNSPECIFIED Qualifiers: Assessment/Plan (1) Nausea & vomiting Assessment/Plan: -unclear cause -appears improved today -UGI series reviewed, does not elucidate cause -? medication effect -reviewed Dr Mercedes's note, planning for GES tomorrow Code(s): R11.2 - NAUSEA WITH VOMITING, UNSPECIFIED Qualifiers: Vomiting type: unspecified Vomiting Intractability: non-intractable Qualified Code(s): R11.2 - Nausea with vomiting, unspecified (2) Hypokalemia Assessment/Plan: -restart oral potassium Code(s): E87.6 - HYPOKALEMIA (3) Congestive cardiac failure Assessment/Plan: -not in exacerbation -hold lasix currently Code(s): I50.9 - HEART FAILURE, UNSPECIFIED (4) GERD (gastroesophageal reflux disease) Assessment/Plan: -continue oral protonix Code(s): K21.9 - GASTRO-ESOPHAGEAL REFLUX DISEASE WITHOUT ESOPHAGITIS Qualifiers: Esophagitis presence: without esophagitis Qualified Code(s): K21.9 - Gastro -esophageal reflux disease without esophagitis (5) Hyperlipidemia Assessment/Plan: -normally on lipitor -will hold currently Code(s): E78.5 - HYPERLIPIDEMIA, UNSPECIFIED (6) Hypertension Assessment/Plan: -hydralazine restarted -monitor for need to restart other medications Code(s): I10 - ESSENTIAL (PRIMARY) HYPERTENSION Qualifiers: Hypertension type: essential hypertension Qualified Code(s): I10 - Essential (primary) hypertension (7) Hypothyroid Assessment/Plan: -can restart synthroid Code(s): E03.9 - HYPOTHYROIDISM, UNSPECIFIED Qualifiers: Dispo -possible discharge tomorrow
--- NOTE | 2018-03-09 12:57 | PN ---
GI Progress Note Subjective: GI NOte: Nausea and vomiting recurred after UGI which revealed no obstruction or major reflux. Head CT also normal. Will get nuclear study for gastroparesis. She prefers not to have MRI or CT of her liver lesion at this time. - Objective Vital Signs: Vital Signs Temperature 97.7 F 03/09/18 09:00 Pulse Rate 73 03/09/18 09:00 Respiratory Rate 18 03/09/18 09:00 Blood Pressure 120/50 03/09/18 09:00 O2 Sat by Pulse Oximetry (%) 96 03/08/18 21:45 ...Auscultate: Yes: Normoactive Bowel Sounds ...Palpate: Yes: Soft, Other (nontender) ...Percussion: Yes: Tympanitic Labs: CBC, BMP 03/09/18 06:00 03/09/18 06:00 INR, PTT INR 1.03 (0.82-1.09) 03/07/18 17:30 Problem List - Problems (1) Nausea & vomiting Assessment/Plan: Still seeking etiology. Dr. Claire may prove correct in that it may be related to a medication side effect. h Code(s): R11.2 - NAUSEA WITH VOMITING, UNSPECIFIED Qualifiers: Vomiting type: unspecified Vomiting Intractability: non-intractable Qualified Code(s): R11.2 - Nausea with vomiting, unspecified (2) Reflux esophagitis Code(s): K21.0 - GASTRO-ESOPHAGEAL REFLUX DISEASE WITH ESOPHAGITIS (3) Liver mass, right lobe Code(s): R16.0 - HEPATOMEGALY, NOT ELSEWHERE CLASSIFIED (5) H/O total thyroidectomy Code(s): E89.0 - POSTPROCEDURAL HYPOTHYROIDISM (6) Colon adenoma Code(s): D12.6 - BENIGN NEOPLASM OF COLON, UNSPECIFIED (7) Diverticulosis large intestine w/o perforation or abscess w/o bleeding Code(s): K57.30 - DVRTCLOS OF LG INT W/O PERFORATION OR ABSCESS W/O BLEEDING
[2018-03-09] MEDS: hydrALAZINE HCL 50 MG TABLET (FP) PO SCH ×2 (14:13→21:29)
[2018-03-09] MEDS: POTASSIUM CHLORIDE TABS 20 MEQ TABLET.ER (FP) PO SCH (17:13)
[2018-03-09] MEDS ORDERED: ACETAMINOPHEN 325 MG TABLET (FP) PO PRN (21:32)
[2018-03-10] MEDS ORDERED: LEVOTHYROXINE NA 112 MCG TABLET (FP) ONE (05:40)
[2018-03-10] MEDS ORDERED: LEVOTHYROXINE NA 25 MCG TABLET (FP) ONE (05:40)
[2018-03-10] MEDS: hydrALAZINE HCL 50 MG TABLET (FP) PO SCH (05:59)
[2018-03-10] MEDS: LEVOTHYROXINE 112 MCG, LEVOTHYROXINE 25 MCG PO SCH (05:59)
--- NOTE | 2018-03-10 08:21 | PN ---
Progress Note (short form) - Note Progress Note: Dr. Shelby to document today. Less nausea off Lexapro; for Gastric emptying Scan Restarted Amlodipine but will hold other home BP Rx Valsartan for now.
[2018-03-10] MEDS ORDERED: amLODIPine BESYLATE 5 MG TABLET (FP) PO SCH (10:00)
[2018-03-10] MEDS: POTASSIUM CHLORIDE TABS 20 MEQ TABLET.ER (FP) PO SCH (10:49)
[2018-03-10] MEDS: PANTOPRAZOLE 40 MG TABLET (FP) PO SCH (10:49)
[2018-03-10] MEDS: CYANOCOBALAMIN 1,000 MCG TABLET (FP) PO SCH (10:49)
[2018-03-10 10:59] VITALS: BP 130/54; PULSE 70; TEMP 97.2
--- NOTE | 2018-03-10 12:18 | DS ---
Physical Examination Vital Signs: Vital Signs Temperature 36.2 C L 03/10/18 10:00 Pulse Rate 70 03/10/18 10:00 Respiratory Rate 18 03/10/18 10:00 Blood Pressure 130/54 03/10/18 10:00 O2 Sat by Pulse Oximetry (%) 96 03/10/18 03:00 Constitutional: Yes: No Distress, Calm, Obese Cardiovascular: Yes: Regular Rate and Rhythm. No: Gallop, Murmur, Rub Respiratory: Yes: Regular, CTA Bilaterally. No: Rales, Rhonchi, Wheezes Gastrointestinal: Yes: Normal Bowel Sounds, Soft. No: Distention, Tenderness Extremities: Yes: WNL Edema: No Labs: CBC, BMP 03/09/18 06:00 03/09/18 06:00 Discharge Summary Reason For Visit: GASTROESOPHAGEAL REFLUX DISEASE WITH Current Active Problems H/O total thyroidectomy (Acute) Hypokalemia (Acute) Nausea & vomiting (Acute) Reflux esophagitis (Acute) Status post balloon mitral valvuloplasty (Acute) Hospital Course: (1) Nausea & vomiting Code(s): R11.2 - NAUSEA WITH VOMITING, UNSPECIFIED Qualifiers: Vomiting type: unspecified Vomiting Intractability: non-intractable Qualified Code(s): R11.2 - Nausea with vomiting, unspecified (2) Hypokalemia Code(s): E87.6 - HYPOKALEMIA (3) Congestive cardiac failure Code(s): I50.9 - HEART FAILURE, UNSPECIFIED (4) GERD (gastroesophageal reflux disease) Code(s): K21.9 - GASTRO-ESOPHAGEAL REFLUX DISEASE WITHOUT ESOPHAGITIS Qualifiers: Esophagitis presence: without esophagitis Qualified Code(s): K21.9 - Gastro -esophageal reflux disease without esophagitis (5) Hyperlipidemia Code(s): E78.5 - HYPERLIPIDEMIA, UNSPECIFIED (6) Hypertension Code(s): I10 - ESSENTIAL (PRIMARY) HYPERTENSION Qualifiers: Hypertension type: essential hypertension Qualified Code(s): I10 - Essential (primary) hypertension (7) Hypothyroid Code(s): E03.9 - HYPOTHYROIDISM, UNSPECIFIED Ms Dorantes is a pleasant 82 year old female who came in with nausea and vomiting. She was admitted under observation. She was seen by GI and had a GI series which did not show immediate cause of nausea. Her lexapro was stopped as this can cause nausea. While here her nausea improved and she is tolerating a normal diet. her lexapro will remain discontinued as could be cause. She will follow up with Dr Mercedes for outpatient GES study. She is safe for discharge home. She should follow up with Dr Claire to evaluate her blood pressure. 32 minutes spent in preparation of this discharge Condition: Good - Instructions Diet, Activity, Other Instructions: resume previous diet and activity. Referrals: Darell Claire MD [Primary Care Provider] - Matti Mercedes MD [Staff Physician] - Disposition: HOME - Home Medications Comprehensive Discharge Medication List: Ambulatory Orders Aspirin 81 mg PO DAILY 01/02/18 Atorvastatin Ca [Lipitor] 40 mg PO HS 01/02/18 Cyanocobalamin [Vitamin B12 -] 1,000 mcg PO DAILY 01/02/18 Furosemide 20 mg PO DAILY 01/02/18 Hydralazine HCl 50 mg PO TID 01/02/18 Levothyroxine Sodium [Levoxyl] 137 mcg PO ACBK 01/02/18 Pantoprazole Sodium 40 mg PO BID 01/02/18 Polyethylene Glycol 3350 [Miralax 119 gm Btl -] 17 gm PO DAILY 01/02/18 Valsartan 320 mg PO DAILY 01/02/18 Amlodipine Besylate [Norvasc -] 5 mg PO DAILY 01/28/18 Cholecalciferol (Vitamin D3) [Vitamin D3] 2,000 unit PO DAILY 01/28/18 Potassium Chloride [K-Dur -] 20 meq PO DAILY 01/28/18
[2018-03-10 16:29] LABS: TRANSGLUTAMINASE IGA < 2 U/mL (0-3); TRANSGLUTAMINASE IGG < 2 U/mL (0-5)
== END 2018-03-10 13:31 | disposition home or self-care (01) ==
LOC: JER 16:50 → JERBED 03-08 01:42 → J7W 03-08 16:56
PROVIDERS: ADMIT Internal Medicine; ATTEND Internal Medicine
PROC: 3E033GC Introduction of Other Therapeutic Substance into Peripheral Vein, Percutaneous Approach (ICD-10-PCS; principal; 2018-03-08)
PROC: 3E0337Z Introduction of Electrolytic and Water Balance Substance into Peripheral Vein, Percutaneous Approach (ICD-10-PCS; 2018-03-08)
DX: K21.0 Gastro-esophageal reflux disease with esophagitis (principal); K76.89 Other specified diseases of liver; E87.6 Hypokalemia; I50.9 Heart failure, unspecified; I10 Essential (primary) hypertension; I25.10 Atherosclerotic heart disease of native coronary artery without angina pectoris; E78.5 Hyperlipidemia, unspecified; E89.0 Postprocedural hypothyroidism; J45.909 Unspecified asthma, uncomplicated; J44.9 Chronic obstructive pulmonary disease, unspecified; I34.0 Nonrheumatic mitral (valve) insufficiency; D12.6 Benign neoplasm of colon, unspecified; K57.30 Diverticulosis of large intestine without perforation or abscess without bleeding; R26.89 Other abnormalities of gait and mobility; Z79.82 Long term (current) use of aspirin; Z91.041 Radiographic dye allergy status; Z88.5 Allergy status to narcotic agent; Z95.5 Presence of coronary angioplasty implant and graft; Z90.710 Acquired absence of both cervix and uterus; Z90.49 Acquired absence of other specified parts of digestive tract
CPT/HCPCS: 36415; 70450-TC; 71045-TC-FY; 74176-TC; 74220-TC-FY; 74240-TC-FY; 80048; 80053; 80076; 81003; 82105; 82378; 82550; 82728; 83036; 83516; 83540; 83550; 83690; 83735; 83880; 84100; 84436; 84439; 84443; 84484; 85025; 85027; 85044; 85610; 86140; 86301; 93005; 93010; 96361; 96374; 96375; 96376; 97116-GP; 97161-GP; 99284-25; G0378; J7030

== ENCOUNTER 2018-05-18 17:04 | Emergency (ER) | payer OTHER ==
--- NOTE | 2018-05-18 17:43 | PDOC ---
Rapid Medical Evaluation Time Seen by Provider: 05/18/18 17:37 Medical Evaluation: Allergies Allergy/AdvReac Type Severity Reaction Status Date / Time codeine [Codeine] Allergy Verified 05/18/18 17:38 Iodinated Contrast- Oral and Allergy Verified 05/18/18 17:38 IV Dye meperidine HCl [From Demerol] Allergy Verified 05/18/18 17:38 05/18/18 17:38 Pt admits to nausea, vomiting, shortness of breath and lightheadedness. Pt diagnosed with gastroparesis. States she has been vomiting since yesterday. Reports 20lb weight loss Exam: abdomen is soft, non-tender, no rebound or guarding. Pt appears uncomfortable, Lungs CTAB Orders: Labs, EKG, urine, Iv insert Pt to proceed to the ED for further evaluation Discharge Disposition - Diagnosis Vomiting - Referrals - Patient Instructions - Post Discharge Activity
[2018-05-18 17:44] VITALS: TEMP 98.4; BMI 29.0
[2018-05-18 20:05] LABS: BASO % 0.7 % (0-2.0); EOS % 4.8 % (0-4.5); HEMATOCRIT 31.1 % (32.4-45.2); HEMOGLOBIN 10.1 GM/dL (10.7-15.3); LYMPH % 21.4 % (8-40); MCH 24.5 pg (25.7-33.7); MCHC 32.6 g/dl (32.0-36.0); MEAN CELL VOLUME 75.2 fl (80-96); MEAN PLT VOLUME 8.7 fl (7.5-11.1); MONO % 11.4 % (3.8-10.2); NEUT % 61.7 % (42.8-82.8); PLATELET COUNT 298 K/MM3 (134-434); RBC 4.14 M/mm3 (3.60-5.2); RDW 17.9 % (11.6-15.6)
[2018-05-18 20:26] LABS: ALBUMIN 3.1 g/dl (3.4-5.0); ALK PHOS 133 U/L (45-117); ANION GAP 9 (8-16); BILIRUBIN,TOTAL 0.4 mg/dL (0.2-1.0); BLOOD UREA NITROGEN 24 mg/dL (7-18); CALCIUM 9.5 mg/dL (8.5-10.1); CHLORIDE 111 mmol/L (98-107); CO2 23 mmol/L (21-32); CREATININE 0.9 mg/dL (0.55-1.02); GLUCOSE,RANDOM 84 mg/dL (74-106); POTASSIUM 4.2 mmol/L (3.5-5.1); SGOT/AST 31 U/L (15-37); SGPT/ALT 23 U/L (12-78); SODIUM 143 mmol/L (136-145); TOT PROT 5.4 g/dl (6.4-8.2)
[2018-05-18 20:27] LABS: LIPASE 588 U/L (73-393)
--- NOTE | 2018-05-18 21:16 | PDOC ---
History of Present Illness - General Chief Complaint: Pain, Acute Stated Complaint: WEAKNESS Time Seen by Provider: 05/18/18 17:37 History Source: Patient, Family (Nephew (also HPOA)) Exam Limitations: No Limitations - History of Present Illness Initial Comments: 82 y/o female presenting to [facility] ER complaining of chronic nausea, vomiting, and weakness. Was admitted for similar symptoms in March 2018. Underwent extensive GI workup by both Dr. Mercedes and more recently by Dr. Bassett at [place]. S/p 4 hour gastric emptying study last Wednesday which was diagnostic for gastroperesis. Was encouraged to order Domperidone medication from [facility] for symptom relief as she has failed to respond to conventional antiemetics. Medication should arrive in the next few days. Was temporized with SL Zofran, which has not provided relief. Family is concerned that pt is feeling week and has continued to decrease PO intake. Has reportedly lost 20lbs since beginning of symptoms. 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 Pt has a h/o CHF but denying worsening pretibial edema, orthopena, or paroxysmal nocturnal dyspnea. Denies headaches, fevers, chills, diaphoresis, SOB, chest pain, symptoms, constipation, or diarrhea. Normal GI: Mago PCP: Alethea Past History - Past Medical History Allergies/Adverse Reactions: Allergies Allergy/AdvReac Type Severity Reaction Status Date / Time codeine [Codeine] Allergy Verified 05/18/18 17:39 Iodinated Contrast- Oral and Allergy Verified 05/18/18 17:39 IV Dye meperidine HCl [From Demerol] Allergy Verified 05/18/18 17:39 Home Medications: Ambulatory Orders Aspirin 81 mg PO DAILY 01/02/18 Atorvastatin Ca [Lipitor] 40 mg PO HS 01/02/18 Cyanocobalamin [Vitamin B12 -] 1,000 mcg PO DAILY 01/02/18 Furosemide 20 mg PO DAILY 01/02/18 Hydralazine HCl 50 mg PO TID 01/02/18 Levothyroxine Sodium [Levoxyl] 137 mcg PO ACBK 01/02/18 Pantoprazole Sodium 40 mg PO BID 01/02/18 Polyethylene Glycol 3350 [Miralax 119 gm Btl -] 17 gm PO DAILY 01/02/18 Valsartan 320 mg PO DAILY 01/02/18 Amlodipine Besylate [Norvasc -] 5 mg PO DAILY 01/28/18 Cholecalciferol (Vitamin D3) [Vitamin D3] 2,000 unit PO DAILY 01/28/18 Potassium Chloride [K-Dur -] 20 meq PO DAILY 01/28/18 Ondansetron HCl [Zofran] 4 mg PO TID 05/18/18 Anemia: No Asthma: No Cancer: No Cardiac Disorders: Yes ([place] stents x2) CVA: No COPD: No CHF: Yes DVT: No Dementia: No Diabetes: No GI Disorders: Yes (ACID REFLUX) Disorders: No HTN: Yes Hypercholesterolemia: Yes Liver Disease: No Seizures: No Thyroid Disease: Yes (thyroidectomy) Other medical history: gastroparesis - Surgical History Abdominal Surgery: No Appendectomy: No Cardiac Surgery: Yes (2 CARDIAC STENTS 2008) Cholecystectomy: Yes Lung Surgery: No Neurologic Surgery: No Orthopedic Surgery: Yes (RIGHT KNEE ARTHROSCOPY) - Immunization History Immunization Up to Date: No - Suicide/Smoking/Psychosocial Hx Smoking History: Never smoked Have you smoked in the past 12 months: No Number of Cigarettes Smoked Daily: 0 Information on smoking cessation initiated: No Hx Alcohol Use: No Drug/Substance Use Hx: No Substance Use Type: None Hx Substance Use Treatment: No Review of Systems - Review of Systems Able to Perform ROS?: Yes Is the patient limited [place] Citizen proficient: No Constitutional: Yes: Malaise, Unintentional Wgt. Loss. No: Chills, Diaphoresis , Fever HEENTM: No: Throat Pain, Throat Swelling, Difficulty Swallowing Respiratory: No: Cough, Shortness of Breath, Hemoptysis Cardiac (ROS): No: Chest Pain, Syncope ABD/GI: Yes: Nausea, Poor Fluid Intake, Vomiting. No: Abdominal Distended, Blood Streaked Bowels, Constipated, Diarrhea, Difficulty Swallowing, Rectal Bleeding, Abdominal cramping, Tarry Stools : No: Burning, Dysuria, Discharge, Frequency, Flank Pain, Hematuria Musculoskeletal: No: Back Pain Integumentary: No: Rash Neurological: No: Headache Hematologic/Lymphatic: No: Easy Bleeding, Easy Bruising *Physical Exam - Vital Signs Last Vital Signs Temp Pulse Resp BP Pulse Ox 98.4 F 74 16 141/52 98 05/18/18 17:40 05/18/18 17:40 05/18/18 17:40 05/18/18 17:40 05/18/18 17:40 - Physical Exam Comments: Constitutional: Well-developed, well-nourished female in no acute distress. Found semi-fowlers in hospital bed. Alert and oriented x4. Answered all questions appropriately and completely. Speech was non-labored, non-pressured. No vomiting or retching witnessed during interview. HEENT: Normocephalic. Sclerae white. Conjunctiva mucosa moist and not injected. Lips, gums and oropharynx: pink, moist, not injected, no lesions, no ulcerations. Neck is supple, trachea is midline. Cardiovascular: Regular rate and regular rhythm. No murmur, rubs, clicks, or gallops. Peripheral pulses: Radial pulses full Respiratory: Equal chest rise and fall. Clear to auscultation bilaterally. No stridor, no wheezing, no rhonchi. Gastrointestinal: abdomen is soft, non-tender, non-distended. Neuro: Alert and oriented. Moving all four extremities spontaneously. Psych: Affect: appropriate. Mood: normal. Skin: Warm, dry, and intact. No rash. Ext: Trace pretibial edema bilaterally. 05/18/18 22:43 ED Treatment Course - LABORATORY CBC & Chemistry Diagram: 05/18/18 19:59 05/18/18 19:59 - ADDITIONAL ORDERS Additional order review: Laboratory Results 05/18/18 05/18/18 05/18/18 19:59 19:59 18:18 Sodium 143 Potassium 4.2 Chloride 111 H Carbon Dioxide 23 Anion Gap 9 BUN 24 H Creatinine 0.9 Creat Clearance w eGFR 59.65 Random Glucose 84 Lactic Acid 0.9 Calcium 9.5 Total Bilirubin 0.4 AST 31 ALT 23 Alkaline Phosphatase 133 H Creatine Kinase 106 Troponin I < 0.02 Total Protein 5.4 L Albumin 3.1 L Lipase 588 H 05/18/18 19:59 RBC 4.14 MCV 75.2 L MCHC 32.6 RDW 17.9 H MPV 8.7 Neutrophils % 61.7 Lymphocytes % 21.4 Monocytes % 11.4 H Eosinophils % 4.8 H Basophils % 0.7 Medical Decision Making - Medical Decision Making 82 y/o female with newly diagnosed gastroparesis presenting for unchanged nausea /vomiting and fatigue. She has been experiencing these symptoms for the past few months. Awaiting arrival of experimental [place] medication as she has failed symptom relief from conventional antiemetics. Afebrile. Vitals are within normal limits. Physical exam unremarkable for signs of severe dehydration or cachexia. Low suspicion for Boerhaave's Syndrome as pt denies intense retching and does not have systemic signs of infection. Pt was initially evaluated by RME. Labs and CXR ordered at that time. Ordered NS bolus and Reglan for rehydration and symptom relief. CBC and CMP unremarkable for derangement. CXR: Unremarkable for acute process per my wet read. EKG: Sinus rhythm with 1st degree AV block. Normal axis. QTc <500. No ST elevation or depression. No peaked T-waves. No pathologic Q waves. CBC unremarkable for leukocytosis or leukopenia. Hematocrit of 10.1 likely secondary to mild dehydration. 05/18/18 22:17 >10 min conversation with pt and niece at bedside. Discussed that it would be unlike for us to relief pt's nausea and vomiting in the ER tonight as the pt has already failed relief with all of the medications we would be able to administer. Both expressed verbal understanding. Then stated pt would like to go home tonight rather than be admitted. Suggested trying a bland liquid diet with small meals. Encouraged to follow up with Dr. Mercedes's office within the next two days. *DC/Admit/Observation/Transfer Diagnosis at time of Disposition: Vomiting Qualifiers: Vomiting type: unspecified Vomiting Intractability: non-intractable Nausea presence: with nausea Qualified Code(s): R11.2 - Nausea with vomiting, unspecified - Discharge Dispostion Disposition: HOME Condition at time of disposition: Good - Referrals Referrals: Darell Claire MD [Primary Care Provider] - Matti Mercedes MD [Staff Physician] - - Patient Instructions Printed Discharge Instructions: DI for Gastroparesis Additional Instructions: Your symptoms are likely related to your diagnosis of gastroparesis. Your imaging and blood work did not show signs of an infection. Try eating a bland liquid diet with small meals. Do not drink coffee on an empty stomach. Please follow up with Dr. Mercedes's office within the next 2-3 days. You will need to call his office. Please return to the emergency department if your symptoms become worse or you feel like you need additional emergency evaluation. - Post Discharge Activity
[2018-05-18] MEDS ORDERED: SODIUM CHLORIDE 0.9% 500 ML INFUS.BAG IV ONE (21:17)
[2018-05-18] MEDS ORDERED: METOCLOPRAMIDE HCL INJECTION 10 MG/2 ML VIAL IVPUSH ONE (21:18)
[2018-05-18] MEDS ORDERED: METOCLOPRAMIDE HCL INJECTION 10 MG/2 ML VIAL ONE (21:45)
--- NOTE | 2018-05-18 22:54 | PDOC ---
Attending Attestation - Resident Resident Name: Jerardo Israel - ED Attending Attestation I have performed the following: I have examined & evaluated the patient, The case was reviewed & discussed with the resident, I agree w/resident's findings & plan, Exceptions are as noted - HPI HPI: 05/19/18 03:49 82yo F hx recently diagnosed gastropareises, cholecystectomy, hysterectomy, COPD , CHF, CAD, and HTN who presents to the emergency department with nausea and vomiting for the last 3 months, recent weight loss, and generalized weakness. Pt attributed these symptoms to her gastropareisis but presents to the ED as she feels dehydrated. Pt has been taking zofran SL which has helped her keep some fluids down but she has felt progressively weak and wanted to make sure she wasn't too dehydrated. Denies fevers, chills, diaphoresis, CP, SOB, N/V/D, focal weakness/numbness, room spinning dizziness, abd pain. Normal GI: Mago PCP: Alethea - Physicial Exam PE: 05/19/18 03:57 GENERAL: Awake, alert, and fully oriented, in no acute distress. Ambulating in holding area with steady gait, no dizziness. ENT: Moist mucosa NECK: Normal ROM, supple, no lymphadenopathy, JVD, or masses LUNGS: Breath sounds equal, clear to auscultation bilaterally. No wheezes, and no crackles HEART: Regular rate and rhythm, normal S1 and S2, no murmurs, rubs or gallops ABDOMEN: Soft, nontender, normoactive bowel sounds. No guarding, no rebound. No masses EXTREMITIES: Normal range of motion, no edema. No clubbing or cyanosis. No cords, erythema, or tenderness NEUROLOGICAL: Normal speech, cranial nerves intact, negative pronator drift, 5/ 5 strength in all 4 extremities, normal sensation to light touch in all 4 extremities, normal gait SKIN: Warm, Dry, normal turgor, no rashes or lesions noted. - Medical Decision Making 05/18/18 21:58 82yo F with MMP including recently diagnosed gastroparesis presents to the ED with weakness and concern for dehydration. Labs with elevated lipase to 500s but unlikely pancreatitis as not 3x upper limit of normal. Trop neg, no KENIA. EKG nonischemic Pt feels much better after 500cc normal saline and is asymptomatic. Presentation consistent with mild dehydration. Pt is now tolerating PO. She requests DC home. She has follow up with Dr. Owens tomorrow. Pt was given strict return precautions should she have any new, worsening or concerning symptoms. I discussed the physical exam findings, ancillary test results and final diagnoses with the patient. I answered all of the patient's questions. The patient was satisfied with the care received and felt comfortable with the discharge plan and treatment plan. The patient will call their primary care physician within 24 hours to arrange follow-up and will return to the Emergency Department with any new, persistent or worsening symptoms. Heart Score/ECG Review #1 05/19/18 04:02 Twelve-lead EKG was performed and reviewed by me. Normal sinus rhythm, rate 71. Normal axis and intervals. No ST elevations. Isolated T-wave inversion in lead 3.
[2018-05-18 23:07] VITALS: BP 133/68; PULSE 64
--- NOTE | 2018-05-19 10:01 | EKG ---
Test Reason : Blood Pressure : / mmHG Vent. Rate : 066 BPM Atrial Rate : 066 BPM P-R Int : 216 ms QRS Dur : 078 ms QT Int : 424 ms P-R-T Axes : 050 015 030 degrees QTc Int : 444 ms SINUS RHYTHM WITH 1ST DEGREE A-V BLOCK OTHERWISE NORMAL ECG WHEN COMPARED WITH ECG OF 07-MAR-2018 20:16, QT HAS SHORTENED Confirmed by KRISTA REEDER, KATHERIN ([id number]) on 05/19/2018 10:01:09 AM Referred By: Confirmed By:KATHERIN VELASCO MD
--- NOTE | 2018-06-13 11:19 | EKG ---
Test Reason : Blood Pressure : / mmHG Vent. Rate : 071 BPM Atrial Rate : 071 BPM P-R Int : 204 ms QRS Dur : 080 ms QT Int : 412 ms P-R-T Axes : 054 012 025 degrees QTc Int : 447 ms NORMAL SINUS RHYTHM LOW VOLTAGE QRS BORDERLINE ECG WHEN COMPARED WITH ECG OF 07-MAR-2018 20:16, QT HAS SHORTENED Confirmed by CARINA FARLEY MD ([id number]) on 06/13/2018 11:18:52 AM Referred By: Confirmed By:CARINA FARLEY MD
== END 2018-05-18 23:07 | disposition home or self-care (01) ==
LOC: JER 17:04
PROC: 3E0337Z Introduction of Electrolytic and Water Balance Substance into Peripheral Vein, Percutaneous Approach (ICD-10-PCS; principal; 2018-05-18)
PROC: 3E033GC Introduction of Other Therapeutic Substance into Peripheral Vein, Percutaneous Approach (ICD-10-PCS; 2018-05-18)
DX: R11.2 Nausea with vomiting, unspecified (principal); K21.9 Gastro-esophageal reflux disease without esophagitis; I10 Essential (primary) hypertension; E78.00 Pure hypercholesterolemia, unspecified; I50.9 Heart failure, unspecified
CPT/HCPCS: 36415; 71046-TC-FY; 80053; 82550; 83605; 83690; 84484; 85025; 93005; 93010; 99283-25

== ENCOUNTER 2018-07-10 04:35 | Emergency (ER) | payer OTHER ==
[2018-07-10] MEDS ORDERED: ALBUTEROL SO4 2.5/IPRATROPIUM 0.5 INH SOL 3 ML VIAL.NEB. NEB ONE ×2 (04:52→05:52)
--- NOTE | 2018-07-10 04:56 | PDOC ---
History of Present Illness - General Chief Complaint: Shortness of Breath Stated Complaint: SOB Time Seen by Provider: 07/10/18 04:48 History Source: Patient, Friend Exam Limitations: No Limitations - History of Present Illness Initial Comments: 07/10/18 04:50 This is an 82 YOF with h/o CHF, CAD, COPD, HTN, Celiac disease, gastroparesis, cholecystectomy, and mild anxiety who p/w about 5 hours of SOB and "panic attack " which she and her friend are describing. She has never had SOB or panicked feeling this bad before. She additionally notes recent itching to the back of her neck (which she states comes along with her recent diagnosis of celiac disease) and more phlegm production than normal, but denies any f/c/n/v/d/c, headache, neck pain, back pain, n/t/w focally, leg pain or swelling, coughing up blood, chest pain, abdominal pain, dysuria, or other symptoms. She did not take any medications for the symptoms she is having now. She requests a medication that will calm her down. She cannot cite any factors that have been causing her increased stress or anxiety. Past History - Past Medical History Allergies/Adverse Reactions: Allergies Allergy/AdvReac Type Severity Reaction Status Date / Time codeine [Codeine] Allergy Verified 07/10/18 06:03 Iodinated Contrast- Oral and Allergy Verified 07/10/18 06:03 IV Dye meperidine HCl [From Demerol] Allergy Verified 07/10/18 06:03 Home Medications: Ambulatory Orders Aspirin 81 mg PO DAILY 01/02/18 Cyanocobalamin [Vitamin B12 -] 1,000 mcg PO DAILY 01/02/18 Furosemide 20 mg PO DAILY 01/02/18 Hydralazine HCl 50 mg PO TID 01/02/18 Levothyroxine Sodium [Levoxyl] 137 mcg PO ACBK 01/02/18 Polyethylene Glycol 3350 [Miralax 119 gm Btl -] 17 gm PO DAILY 01/02/18 Cholecalciferol (Vitamin D3) [Vitamin D3] 2,000 unit PO DAILY 01/28/18 Potassium Chloride [K-Dur -] 20 meq PO DAILY 01/28/18 Atorvastatin Ca [Lipitor] 20 mg PO HS 07/10/18 Dexlansoprazole [Dexilant] 60 mg PO DAILY 07/10/18 Fluticasone Propionate [Flovent Diskus] 50 mcg IH BID PRN 07/10/18 Lorazepam [Ativan] 0.5 mg PO TID 5 Days #15 tablet MDD 3 07/10/18 Losartan Potassium 50 mg PO DAILY 07/10/18 Anemia: No Asthma: No Cancer: No Cardiac Disorders: Yes ([place] stents x2) CVA: No COPD: No CHF: Yes DVT: No Dementia: No Diabetes: No GI Disorders: Yes (ACID REFLUX) Disorders: No HTN: Yes Hypercholesterolemia: Yes Liver Disease: No Seizures: No Thyroid Disease: Yes (thyroidectomy) - Surgical History Abdominal Surgery: No Appendectomy: No Cardiac Surgery: Yes (2 CARDIAC STENTS 2008) Cholecystectomy: Yes Lung Surgery: No Neurologic Surgery: No Orthopedic Surgery: Yes (RIGHT KNEE ARTHROSCOPY) - Immunization History Immunization Up to Date: No - Suicide/Smoking/Psychosocial Hx Smoking History: Never smoked Have you smoked in the past 12 months: No Number of Cigarettes Smoked Daily: 0 Hx Alcohol Use: No Drug/Substance Use Hx: No Substance Use Type: None Hx Substance Use Treatment: No Review of Systems - Review of Systems Able to Perform ROS?: Yes Constitutional: No: Chills, Fever, Unexplained wgt Loss HEENTM: No: Nose Congestion, Throat Pain Respiratory: Yes: Shortness of Breath. No: Cough Cardiac (ROS): No: Chest Pain, Palpitations ABD/GI: No: Constipated, Diarrhea, Nausea, Vomiting : No: Burning, Dysuria Musculoskeletal: No: Back Pain, Neck Pain Integumentary: No: Bruising, Rash Neurological: No: Headache, Numbness, Tingling, Weakness, Dizziness Psychiatric: Yes: Anxiety Endocrine: No: Unexplained Weight Gain, Unexplained Weight Loss *Physical Exam - Vital Signs 07/10/18 05:00 GENERAL: tearful, accompanied by friend, nontoxic appearing, nourished, A/Ox4, speaking in 3 word sentences, answers questions appropriately HEENT: pupils are 1-2mm but reactive to light and accomodation and are symmetric , EOMI, moist mucous membranes, no posterior pharyngeal erythema, no tonsillar swelling or exudates, no cervical lymphadenopathy NECK: No midline ttp, no spinal stepoff or deformity, full ROM, supple CARDIOVASCULAR: Regular rate and rhythm, normal S1S2, MGR, radial and DP pulses 2+ and symmetric, capillary refill <2 seconds, extremities warm and well- perfused Chest wall: Normal appearance, no rash, no bruising, no costal stepoff or deformity, nontender to compression LUNGS/RESPIRATORY: mild respiratory distress, tachypnea, normal and symmetric chest movements during respirations, lungs CTA bilaterally, equal breath sounds , good air movement, no cyanosis, no nail clubbing GI/ABDOMEN: Normal symmetric appearance, normoactive bowel sounds, soft, no tenderness to palpation, no midline pulsatile masses, no palpated organomegaly BACK: No midline ttp or stepoff or deformity of thoracic or lumbar spine EXTREMITIES: distal pulses 2+, warm and well-perfused, no LE edema SKIN: Warm and dry, no pallor, no jaundice, no bruising, no rash, no skin breakdown, no cuts, no lesions NEUROLOGICAL: GCS 15, CN II-XII grossly intact, ambulating with normal gait, moving all extremities, 5/5 strength proximally and distally, no facial droop, no decreased sensation PSYCH: appears anxious, tearful Heart Score/ECG Review #1 07/10/18 05:08 NSR, rate 72, normal axis and intervals, low voltage in aVF, no ST-T changes, poor baseline ED Treatment Course - LABORATORY CBC & Chemistry Diagram: 07/10/18 05:49 07/10/18 05:49 Medical Decision Making - Medical Decision Making 07/10/18 05:15 Pt with h/o COPD, CHF, anxiety, p/w SOB and "panic attack". Initial Vital Signs Pulse Resp BP Pulse Ox 71 20 119/52 L 100 07/10/18 04:47 07/10/18 04:47 07/10/18 04:47 07/10/18 04:47 Exam: As noted in Physical Exam section. DDX IBNLT: COPD, CHF, bronchitis, PNA, ACS, PE, asthma, viral URI, influenza, PTX, pericarditis, pneumonitis, allergic rxn, UTI, electrolyte derangement, panic/anxiety, etc. W/U ordered: Labs as noted below, EKG CXR TX ordered: Jaime EKG: Reviewed; results as noted in ECG Review section. Laboratory Tests 07/10/18 07/10/18 07/10/18 05:26 05:49 05:49 WBC 7.2 RBC 4.15 Hgb 10.4 L Hct 31.9 L MCV 77.0 L MCH 25.1 L MCHC 32.5 RDW 16.8 H Plt Count 282 MPV 8.0 Absolute Neuts (auto) 4.6 Neutrophils % 62.9 Lymphocytes % 20.5 Monocytes % 11.7 H Eosinophils % 4.2 Basophils % 0.7 Nucleated RBC % 0 PT with INR 11.60 INR 0.98 Sodium Potassium Chloride Carbon Dioxide Anion Gap BUN Creatinine Creat Clearance w eGFR Random Glucose Calcium Magnesium Total Bilirubin AST ALT Alkaline Phosphatase Creatine Kinase Troponin I B-Natriuretic Peptide Total Protein Albumin TSH Urine Color Yellow Urine Appearance Clear Urine pH 5.0 Ur Specific Jenera 1.019 Urine Protein Negative Urine Glucose (UA) Negative Urine Ketones Negative Urine Blood Negative Urine Nitrite Negative Urine Bilirubin Negative Urine Urobilinogen Negative Ur Leukocyte Esterase Negative 07/10/18 05:49 WBC RBC Hgb Hct MCV MCH MCHC RDW Plt Count MPV Absolute Neuts (auto) Neutrophils % Lymphocytes % Monocytes % Eosinophils % Basophils % Nucleated RBC % PT with INR INR Sodium 145 Potassium 4.1 Chloride 114 H Carbon Dioxide 24 Anion Gap 7 L BUN 24 H Creatinine 0.9 Creat Clearance w eGFR 59.65 Random Glucose 93 Calcium 9.3 Magnesium 2.0 Total Bilirubin 0.4 AST 37 ALT 22 Alkaline Phosphatase 148 H Creatine Kinase 135 Troponin I < 0.02 B-Natriuretic Peptide 221.5 Total Protein 5.5 L Albumin 3.0 L TSH 3.54 Urine Color Urine Appearance Urine pH Ur Specific Jenera Urine Protein Urine Glucose (UA) Urine Ketones Urine Blood Urine Nitrite Urine Bilirubin Urine Urobilinogen Ur Leukocyte Esterase 07/10/18 06:30 Patient continues to describe panic attack. Ordered is 1 mg Ativan PO. E-Rx sent by Dr. Tate for tid Ativan prn anxiety. The patient states she believes this is a panic attack and she requests psychiatric resources. She is denying any suicidal ideation I am placing referral information for psychiatry and will encourage her to call on Wednesday morning. Repeat VS: 07/10/18 07:00 [facility] end [facility] my shift pending CXR, reassessment after Ativan. *DC/Admit/Observation/Transfer Diagnosis at time of Disposition: Shortness of breath - Discharge Dispostion Condition at time of disposition: Stable Decision to Admit order: No - Referrals Referrals: Darell Claire MD [Primary Care Provider] - Ben Jennings MD [Staff Physician] - - Patient Instructions Printed Discharge Instructions: DI for Shortness of Breath Additional Instructions: YOU WERE SEEN IN THE ER FOR DIFFICULTY BREATHING AND FOR WHAT YOU DESCRIBED TO US A PANIC ATTACK. WE DID AN EXAM, BREATHING TREATMENTS, LAB WORK, AN ELECTROCARDIOGRAM, AND A CHEST X-RAY. WE ALSO GAVE YOU ATIVAN HERE IN THE ER. AFTER OUR ASSESSMENT, WE DO NOT BELIEVE THERE IS A MEDICAL EMERGENCY AT THIS TIME, AND WE BELIEVE IT IS SAFE TO GO HOME. PLEASE FOLLOW UP WITH YOUR PRIMARY CARE PROVIDER ON WEDNESDAY. YOU SHOULD ALSO FOLLOW UP WITH OUR PSYCHIATRIST WHO CAN GIVE YOU RESOURCES IN CASE THIS WAS A PANIC ATTACK. CALL THEIR CLINIC SOON POSSIBLE, TELL THEM YOU WERE SEEN IN THE ER, AND TELL THEM YOU NEED AN APPOINTMENT. BOX CAR WASHER YOUR PRESCRIPTION FOR ATIVAN FROM YOUR PHARMACY (WE ARE SENDING IT ELECTRONICALLY). IT IS VERY IMPORTANT TO TAKE THIS PRESCRIBED, ONLY IF YOU HAVE ANXIETY OR PANIC SYMPTOMS. IF THERE ARE ANY NEW OR WORSENING SYMPTOMS, ESPECIALLY INABILITY TO BREATHE, CHEST PAIN, OR FAINTING, PLEASE COME BACK TO THE ER AT ANY TIME (24 HOURS A DAY). IF THE SYMPTOMS APPEAR SEVERE OR LIFE-THREATENING, PLEASE CALL 911 TO HAVE AN AMBULANCE TAKE YOU TO THE ER. - Post Discharge Activity
[2018-07-10 05:21] VITALS: BMI 28.0
[2018-07-10 05:38] LABS: URINE APPEARANCE CLEAR; URINE BILIRUBIN NEGATIVE (<2.0 mg/dL); URINE COLOR YELLOW; URINE GLUCOSE (UA) NEGATIVE (NEGATIVE); URINE KETONE NEGATIVE (NEGATIVE); URINE LEUK ESTERASE NEGATIVE (NEGATIVE); URINE NITRITE NEGATIVE (NEGATIVE); URINE PROTEIN NEGATIVE (NEGATIVE); URINE UROBILINOGEN NEGATIVE mg/dL (0.2-1.0)
[2018-07-10 06:05] LABS: BASO % 0.7 % (0-2.0); EOS % 4.2 % (0-4.5); HEMATOCRIT 31.9 % (32.4-45.2); HEMOGLOBIN 10.4 GM/dL (10.7-15.3); LYMPH % 20.5 % (8-40); MCH 25.1 pg (25.7-33.7); MCHC 32.5 g/dl (32.0-36.0); MONO % 11.7 % (3.8-10.2); NEUT % 62.9 % (42.8-82.8); PLATELET COUNT 282 K/MM3 (134-434); RBC 4.15 M/mm3 (3.60-5.2); RDW 16.8 % (11.6-15.6); WHITE BLOOD COUNT 7.2 K/mm3 (4.0-10.0)
[2018-07-10 06:13] LABS: INR 0.98 (0.83-1.09); PROTHROMBIN TIME (PATIENT) 11.6 SEC (9.7-13.0)
--- NOTE | 2018-07-10 06:22 | PDOC ---
Attending Attestation - Resident Resident Name: Laurel Gomez - ED Attending Attestation I have performed the following: I have examined & evaluated the patient, The case was reviewed & discussed with the resident, I agree w/resident's findings & plan - Medical Decision Making 07/10/18 06:32 CBC normal; UA normal; Chem pending. Pt is anxious and having a panic attack. Labs normal' EKG normal; vitals normal. Pt will be treated with ativan PO and I sent an ativan low dose prescription to her pharmacy.
[2018-07-10] MEDS ORDERED: LORazepam 1 MG TABLET PO ONE (06:28)
[2018-07-10 06:32] LABS: ALK PHOS 148 U/L (45-117); ANION GAP 7 MMOL/L (8-16); BILIRUBIN,TOTAL 0.4 mg/dL (0.2-1); BLOOD UREA NITROGEN 24 mg/dL (7-18); CALCIUM 9.3 mg/dL (8.5-10.1); CHLORIDE 114 mmol/L (98-107); CO2 24 mmol/L (21-32); CREATININE 0.9 mg/dL (0.55-1.3); GLUCOSE,RANDOM 93 mg/dL (74-106); N-TERMINAL BNP 221.5 pg/ml (5-450); POTASSIUM 4.1 mmol/L (3.5-5.1); SGOT/AST 37 U/L (15-37); SGPT/ALT 22 U/L (13-61); SODIUM 145 mmol/L (136-145); TOT PROT 5.5 g/dl (6.4-8.2)
[2018-07-10] MEDS ORDERED: LORazepam 0.5 MG TABLET ONE (06:33)
--- NOTE | 2018-07-10 08:48 | PDOC ---
*Physical Exam - Vital Signs Last Vital Signs Temp Pulse Resp BP Pulse Ox 97.8 F 76 20 160/54 L 99 07/10/18 09:12 07/10/18 09:12 07/10/18 09:12 07/10/18 09:12 07/10/18 09:12 <Betsy Forrester - Last Filed: 07/10/18 09:22> - Vital Signs Last Vital Signs Temp Pulse Resp BP Pulse Ox 71 20 119/52 L 100 07/10/18 04:47 07/10/18 04:47 07/10/18 04:47 07/10/18 04:47 <Robert Devries - Last Filed: 07/10/18 09:39> ED Treatment Course - LABORATORY CBC & Chemistry Diagram: 07/10/18 05:49 07/10/18 05:49 - ADDITIONAL ORDERS Additional order review: Laboratory Results 07/10/18 07/10/18 07/10/18 05:49 05:49 05:49 PT with INR 11.60 INR 0.98 Sodium 145 Potassium 4.1 Chloride 114 H Carbon Dioxide 24 Anion Gap 7 L BUN 24 H Creatinine 0.9 Creat Clearance w eGFR 59.65 Random Glucose 93 Calcium 9.3 Magnesium 2.0 Total Bilirubin 0.4 AST 37 ALT 22 Alkaline Phosphatase 148 H Creatine Kinase 135 Troponin I < 0.02 B-Natriuretic Peptide 221.5 Total Protein 5.5 L Albumin 3.0 L TSH 3.54 Urine Color Urine Appearance Urine pH Ur Specific [place] Urine Protein Urine Glucose (UA) Urine Ketones Urine Blood Urine Nitrite Urine Bilirubin Urine Urobilinogen Ur Leukocyte Esterase Blood Type A POSITIVE Antibody Screen Negative 07/10/18 05:26 PT with INR INR Sodium Potassium Chloride Carbon Dioxide Anion Gap BUN Creatinine Creat Clearance w eGFR Random Glucose Calcium Magnesium Total Bilirubin AST ALT Alkaline Phosphatase Creatine Kinase Troponin I B-Natriuretic Peptide Total Protein Albumin TSH Urine Color Yellow Urine Appearance Clear Urine pH 5.0 Ur Specific [place] 1.019 Urine Protein Negative Urine Glucose (UA) Negative Urine Ketones Negative Urine Blood Negative Urine Nitrite Negative Urine Bilirubin Negative Urine Urobilinogen Negative Ur Leukocyte Esterase Negative Blood Type Antibody Screen 07/10/18 05:49 RBC 4.15 MCV 77.0 L MCHC 32.5 RDW 16.8 H MPV 8.0 Neutrophils % 62.9 Lymphocytes % 20.5 Monocytes % 11.7 H Eosinophils % 4.2 Basophils % 0.7 - Medications Given in the ED: ED Medications Discontinued Medications Generic Name Dose Route Start Last Admin Trade Name Navin PRN Reason Stop Dose Admin Albuterol/Ipratropium 2 amp 07/10/18 04:52 07/10/18 04:50 Duoneb - NEB 07/10/18 04:53 2 amp ONCE ONE Administration Lorazepam 1 mg 07/10/18 06:28 07/10/18 06:36 Ativan - PO 07/10/18 06:29 1 mg ONCE ONE Administration <Betsy Forrester - Last Filed: 07/10/18 09:22> - LABORATORY CBC & Chemistry Diagram: 07/10/18 05:49 07/10/18 05:49 - ADDITIONAL ORDERS Additional order review: Laboratory Results 07/10/18 07/10/18 07/10/18 05:49 05:49 05:49 WBC RBC Hgb Hct MCV MCH MCHC RDW Plt Count MPV Absolute Neuts (auto) Neutrophils % Lymphocytes % Monocytes % Eosinophils % Basophils % Nucleated RBC % PT with INR 11.60 INR 0.98 Sodium 145 Potassium 4.1 Chloride 114 H Carbon Dioxide 24 Anion Gap 7 L BUN 24 H Creatinine 0.9 Creat Clearance w eGFR 59.65 Random Glucose 93 Calcium 9.3 Magnesium 2.0 Total Bilirubin 0.4 AST 37 ALT 22 Alkaline Phosphatase 148 H Creatine Kinase 135 Troponin I < 0.02 B-Natriuretic Peptide 221.5 Total Protein 5.5 L Albumin 3.0 L TSH 3.54 Urine Color Urine Appearance Urine pH Ur Specific [place] Urine Protein Urine Glucose (UA) Urine Ketones Urine Blood Urine Nitrite Urine Bilirubin Urine Urobilinogen Ur Leukocyte Esterase Blood Type A POSITIVE Antibody Screen Negative 07/10/18 07/10/18 05:49 05:26 WBC 7.2 RBC 4.15 Hgb 10.4 L Hct 31.9 L MCV 77.0 L MCH 25.1 L MCHC 32.5 RDW 16.8 H Plt Count 282 MPV 8.0 Absolute Neuts (auto) 4.6 Neutrophils % 62.9 Lymphocytes % 20.5 Monocytes % 11.7 H Eosinophils % 4.2 Basophils % 0.7 Nucleated RBC % 0 PT with INR INR Sodium Potassium Chloride Carbon Dioxide Anion Gap BUN Creatinine Creat Clearance w eGFR Random Glucose Calcium Magnesium Total Bilirubin AST ALT Alkaline Phosphatase Creatine Kinase Troponin I B-Natriuretic Peptide Total Protein Albumin TSH Urine Color Yellow Urine Appearance Clear Urine pH 5.0 Ur Specific [place] 1.019 Urine Protein Negative Urine Glucose (UA) Negative Urine Ketones Negative Urine Blood Negative Urine Nitrite Negative Urine Bilirubin Negative Urine Urobilinogen Negative Ur Leukocyte Esterase Negative Blood Type Antibody Screen 07/10/18 05:49 RBC 4.15 MCV 77.0 L MCHC 32.5 RDW 16.8 H MPV 8.0 Neutrophils % 62.9 Lymphocytes % 20.5 Monocytes % 11.7 H Eosinophils % 4.2 Basophils % 0.7 - Medications Given in the ED: ED Medications Discontinued Medications Generic Name Dose Route Start Last Admin Trade Name Freq PRN Reason Stop Dose Admin Albuterol/Ipratropium 2 amp 07/10/18 04:52 07/10/18 04:50 Duoneb - NEB 07/10/18 04:53 2 amp ONCE ONE Administration Lorazepam 1 mg 07/10/18 06:28 07/10/18 06:36 Ativan - PO 07/10/18 06:29 1 mg ONCE ONE Administration <Robert Devries - Last Filed: 07/10/18 09:39> Medical Decision Making - Medical Decision Making pt signed out from Dr. Tate pending reeval and XR 82 YOF with h/o CHF, CAD, COPD, HTN, Celiac disease, gastroparesis, cholecystectomy, and mild anxiety, presenting with anxiety. +also coughing with green sputum noted, but no respiratory distress. vitals wnl. no hypoxia, on RA without issues. labs and lytes, Cr normal. no wbc ct. baseline anemia, UA neg. CXR with infiltrate vs atelectasis, has cough and respiratory sx. rx doxycycline for coverage for pneumonia with clinical sx, return precautions discussed, including AMS, dehydration, respiratory distress, hemoptysis or bleeding or other complications back to long term, care instructions provided. already had previous provider prescription for benzo PRN anxiety attacks 07/10/18 09:26 <Betsy Forrester - Last Filed: 07/10/18 09:22> - Medical Decision Making This is an 82 YOF with h/o CHF, CAD, COPD, HTN, Celiac disease, gastroparesis, cholecystectomy, and mild anxiety who p/w about 5 hours of SOB and "panic attack " which she and her friend are describing. She has been coughing more frequently productive of green phlegm. BP at bedside: 149/60 SpO2: 98% BUN: 24 Decreased breath sounds in Left lower Lobe - no crackles. rales or rhonchi. CXR shows a Left Lower Lobe infiltrate. Diagnosis: Patient likely has a lower lobe PNA. CURB-65 - no confusion BUN: 24 => (greater than 19) RR: 20 BP: 149/60 Age: 82 Total 2 points. Calc: Moderate risk group. 6.8% 30 day mortality. "Consider inpatient treatment, or Outpatient with close follow up" Patient would like to go home. We are prescribing doxy for the PNA for her to take as outpatient. Strict return precautions were discussed. <Robert Devries - Last Filed: 07/10/18 09:39> *DC/Admit/Observation/Transfer <MitzyBetsysofía Vegabryan - Last Filed: 07/10/18 09:22> - Discharge Dispostion Decision to Admit order: No <Robert Devries - Last Filed: 07/10/18 09:39> Diagnosis at time of Disposition: Shortness of breath, Pneumonia - Discharge Dispostion Disposition: HOME Condition at time of disposition: Stable - Prescriptions Prescriptions: Doxycycline Hyclate 100 mg PO BID 10 Days #20 tablet Lorazepam [Ativan] 0.5 mg PO TID 5 Days #15 tablet MDD 3 - Referrals Referrals: Ben Jennings MD [Staff Physician] - Darell Claire MD [Primary Care Provider] - - Patient Instructions Printed Discharge Instructions: Pneumonia-Adult, DI for Shortness of Breath Additional Instructions: YOU WERE SEEN IN THE ER FOR DIFFICULTY BREATHING AND FOR WHAT YOU DESCRIBED TO US A PANIC ATTACK. WE DID AN EXAM, BREATHING TREATMENTS, LAB WORK, AN ELECTROCARDIOGRAM, AND A CHEST X-RAY. WE ALSO GAVE YOU ATIVAN HERE IN THE ER. AFTER OUR ASSESSMENT, WE DO NOT BELIEVE THERE IS A MEDICAL EMERGENCY AT THIS TIME, AND WE BELIEVE IT IS SAFE TO GO HOME. PLEASE FOLLOW UP WITH YOUR PRIMARY CARE PROVIDER ON WEDNESDAY. YOU SHOULD ALSO FOLLOW UP WITH OUR PSYCHIATRIST WHO CAN GIVE YOU RESOURCES IN CASE THIS WAS A PANIC ATTACK. CALL THEIR CLINIC SOON POSSIBLE, TELL THEM YOU WERE SEEN IN THE ER, AND TELL THEM YOU NEED AN APPOINTMENT. HAM TRIMMER YOUR PRESCRIPTION FOR ATIVAN FROM YOUR PHARMACY (WE ARE SENDING IT ELECTRONICALLY). IT IS VERY IMPORTANT TO TAKE THIS PRESCRIBED, ONLY IF YOU HAVE ANXIETY OR PANIC SYMPTOMS. IF THERE ARE ANY NEW OR WORSENING SYMPTOMS, ESPECIALLY INABILITY TO BREATHE, CHEST PAIN, OR FAINTING, PLEASE COME BACK TO THE ER AT ANY TIME (24 HOURS A DAY). IF THE SYMPTOMS APPEAR SEVERE OR LIFE-THREATENING, PLEASE CALL 911 TO HAVE AN AMBULANCE TAKE YOU TO THE ER. Print Language: WALLISIAN - Post Discharge Activity
[2018-07-10 09:13] VITALS: BP 160/54; PULSE 76; TEMP 97.8
--- NOTE | 2018-07-11 11:02 | EKG ---
Test Reason : Blood Pressure : / mmHG Vent. Rate : 072 BPM Atrial Rate : 072 BPM P-R Int : 194 ms QRS Dur : 082 ms QT Int : 436 ms P-R-T Axes : 049 011 020 degrees QTc Int : 477 ms NORMAL SINUS RHYTHM LOW VOLTAGE QRS SEPTAL INFARCT , AGE UNDETERMINED ABNORMAL ECG WHEN COMPARED WITH ECG OF 18-MAY-2018 20:33, Confirmed by CARINA FARLEY MD ([id number]) on 07/11/2018 11:02:32 AM Referred By: Confirmed By:CARINA FARLEY MD
== END 2018-07-10 09:45 | disposition home or self-care (01) ==
LOC: JER 04:35
PROC: 3E0F7GC Introduction of Other Therapeutic Substance into Respiratory Tract, Via Natural or Artificial Opening (ICD-10-PCS; principal; 2018-07-10)
DX: J18.9 Pneumonia, unspecified organism (principal); F41.0 Panic disorder [episodic paroxysmal anxiety]; I25.10 Atherosclerotic heart disease of native coronary artery without angina pectoris; I10 Essential (primary) hypertension; I50.9 Heart failure, unspecified; Z95.5 Presence of coronary angioplasty implant and graft; J44.9 Chronic obstructive pulmonary disease, unspecified; K31.84 Gastroparesis; K90.0 Celiac disease; E89.0 Postprocedural hypothyroidism; Z90.49 Acquired absence of other specified parts of digestive tract
CPT/HCPCS: 36415; 71045-TC-FY; 80053; 81003; 82550; 83735; 83880; 84443; 84484; 85025; 85610; 86850; 86900; 86901; 87086; 93005; 93010; 94640; 99283-25; J7620

== ENCOUNTER 2018-07-14 11:30 | Inpatient (IN) | payer OTHER ==
--- NOTE | 2018-07-14 12:32 | PDOC ---
History of Present Illness - General Chief Complaint: Nausea/Vomiting Stated Complaint: SOB Time Seen by Provider: 07/14/18 12:09 History Source: Patient Exam Limitations: No Limitations - History of Present Illness Initial Comments: CHIEF COMPLAINT: 82 y/o afebrile female with PMH gait instability, diverticulitis (5 years ago), cholecystectomy, hysterectomy, COPD (last admission 01/06/18), CHF, CAD (s/p 2 stents and balloon angioplasty) and HTN who was sent in at the request of Dr. Claire for continued nausea, vomiting and weight loss over the past 5 months. HISTORY OF PRESENT ILLNESS: The patient had an abdominal procedure performed at [facility] on 07/01/18 with botox injection to attempt to help with nausea and vomiting, but the patient states there is no change. She was started on PO reglan at home by Dr. Mercedes but that does not appear to be helping. She states she's had a 30lb weight loss since March of this year. She denies fever, chills, Cp, SOB, hematuria, dysuria, recent travel. Allergies: codeine Past surgical history: as noted above. Social history: No reported alcohol, drug, or cigarette use. PCP: Dr. Claire GI: Dr. Mercedes Vital signs on arrival are within normal limits. REVIEW OF SYSTEMS: GENERAL/CONSTITUTIONAL: No fever/chills. +weakness. No weight change. HEAD, EYES, EARS, NOSE AND THROAT: No change in vision. No ear pain or discharge. No sore throat. CARDIOVASCULAR: No chest pain or shortness of breath. RESPIRATORY: No cough, wheezing, or hemoptysis. GASTROINTESTINAL:+nausea, vomiting and diarrhea GENITOURINARY: No dysuria, frequency, or change in urination. MUSCULOSKELETAL: No joint or muscle swelling or pain. No neck or back pain. SKIN: No rash or easy bruising. NEUROLOGIC: +dizziness. No headache, loss of consciousness, or loss of sensation. PHYSICAL EXAM: GENERAL: The patient is awake, alert, and fully oriented, in no acute distress. She is non toxic but uncomfortable appearing. HEAD: Normal with no signs of trauma. ENT: Pupils equal, round and reactive to light, extraocular movements intact, sclera anicteric, conjunctiva clear. Mucous membranes dry. LUNGS: Clear to auscultation bilaterally. Normal excursion. No respiratory distress or use of accessory muscles. CV: RRR, S1/S2, no MRG. Cap refill < 2 sec. ABDOMEN: Soft, non-distended, TTP of epigastric region. No rebound, guarding or rigidity. No masses EXTREMITIES: Normal range of motion, no edema. NEUROLOGICAL: Normal speech, normal gait. CN II-XII grossly intact. PSYCH: Normal mood, normal affect. SKIN: Warm, dry, decreased turgor, no rashes or lesions noted. Past History - Past Medical History Allergies/Adverse Reactions: Allergies Allergy/AdvReac Type Severity Reaction Status Date / Time codeine [Codeine] Allergy Verified 07/14/18 11:34 Iodinated Contrast- Oral and Allergy Verified 07/14/18 11:34 IV Dye meperidine HCl [From Demerol] Allergy Verified 07/14/18 11:34 Home Medications: Ambulatory Orders Aspirin 81 mg PO DAILY 01/02/18 Cyanocobalamin [Vitamin B12 -] 1,000 mcg PO DAILY 01/02/18 Furosemide 20 mg PO DAILY 01/02/18 Hydralazine HCl 50 mg PO TID 01/02/18 Levothyroxine Sodium [Levoxyl] 137 mcg PO ACBK 01/02/18 Polyethylene Glycol 3350 [Miralax 119 gm Btl -] 17 gm PO DAILY 01/02/18 Cholecalciferol (Vitamin D3) [Vitamin D3] 2,000 unit PO DAILY 01/28/18 Potassium Chloride [K-Dur -] 20 meq PO DAILY 01/28/18 Atorvastatin Ca [Lipitor] 20 mg PO HS 07/10/18 Dexlansoprazole [Dexilant] 60 mg PO DAILY 07/10/18 Doxycycline Hyclate 100 mg PO BID 10 Days #20 tablet 07/10/18 Fluticasone Propionate [Flovent Diskus] 50 mcg IH BID PRN 07/10/18 Lorazepam [Ativan] 0.5 mg PO TID 5 Days #15 tablet MDD 3 07/10/18 Losartan Potassium 50 mg PO DAILY 07/10/18 Anemia: No Asthma: No Cancer: No Cardiac Disorders: Yes ([place] stents x2) CVA: No COPD: No CHF: Yes DVT: No Dementia: No Diabetes: No GI Disorders: Yes (ACID REFLUX) Disorders: No HTN: Yes Hypercholesterolemia: Yes Liver Disease: No Seizures: No Thyroid Disease: Yes (thyroidectomy) - Surgical History Abdominal Surgery: No Appendectomy: No Cardiac Surgery: Yes (2 CARDIAC STENTS 2008) Cholecystectomy: Yes Lung Surgery: No Neurologic Surgery: No Orthopedic Surgery: Yes (RIGHT KNEE ARTHROSCOPY) - Immunization History Immunization Up to Date: No - Suicide/Smoking/Psychosocial Hx Smoking History: Never smoked Have you smoked in the past 12 months: No Number of Cigarettes Smoked Daily: 0 Hx Alcohol Use: No Drug/Substance Use Hx: No Substance Use Type: None Hx Substance Use Treatment: No *Physical Exam - Vital Signs Last Vital Signs Temp Pulse Resp BP Pulse Ox 97.8 F 93 H 20 157/51 L 96 07/14/18 11:34 07/14/18 11:34 07/14/18 11:34 07/14/18 11:34 07/14/18 11:34 ED Treatment Course - LABORATORY CBC & Chemistry Diagram: 07/14/18 12:57 07/14/18 12:57 Medical Decision Making - Medical Decision Making A/P: 82 y/o female with worsened nausea/vomiting and 30lb weight loss since march. Plan is as follows: 1. Labs 2. UA 3. IV fluids 4. IV reglan 5. CT scan abd/pelvis Patient has vomited twice in the ER. Ordered IV protonix, PO carafate and IV ativan Spoke with Dr. Shelby. Will admit to inpatient med/surg for intractable vomiting and weight loss. CT scan abd/pelvis IMPRESSION: No acute pathology. No change from CT scan of 09/18/13 *DC/Admit/Observation/Transfer Diagnosis at time of Disposition: Weight loss Intractable vomiting with nausea Qualifiers: Vomiting type: unspecified Qualified Code(s): R11.2 - Nausea with vomiting, unspecified - Discharge Dispostion Condition at time of disposition: Poor Decision to Admit order: Yes - Referrals - Patient Instructions - Post Discharge Activity
[2018-07-14] MEDS ORDERED: METOCLOPRAMIDE HCL INJECTION 10 MG/2 ML VIAL IVPUSH ONE (12:44)
[2018-07-14] MEDS ORDERED: SODIUM CHLORIDE 1,000 ML IV STA (12:44)
[2018-07-14 13:06] LABS: BASO % 0.7 % (0-2.0); EOS % 2.2 % (0-4.5); HEMATOCRIT 34.5 % (32.4-45.2); LYMPH % 19.6 % (8-40); MEAN CELL VOLUME 78.2 fl (80-96); MEAN PLT VOLUME 8.4 fl (7.5-11.1); MONO % 12.1 % (3.8-10.2); NEUT % 65.4 % (42.8-82.8); PLATELET COUNT 314 K/MM3 (134-434); RBC 4.41 M/mm3 (3.60-5.2); RDW 16.8 % (11.6-15.6); WHITE BLOOD COUNT 7.7 K/mm3 (4.0-10.0)
[2018-07-14] MEDS ORDERED: METOCLOPRAMIDE HCL INJECTION 10 MG/2 ML VIAL ONE (13:07)
[2018-07-14 13:31] LABS: ALBUMIN 3.1 g/dl (3.4-5.0); ALK PHOS 166 U/L (45-117); ANION GAP 7 MMOL/L (8-16); BILIRUBIN,TOTAL 0.4 mg/dL (0.2-1); BLOOD UREA NITROGEN 26 mg/dL (7-18); CALCIUM 9.3 mg/dL (8.5-10.1); CHLORIDE 109 mmol/L (98-107); CO2 25 mmol/L (21-32); CREATININE 0.9 mg/dL (0.55-1.3); GLUCOSE,RANDOM 91 mg/dL (74-106); LIPASE 433 U/L (73-393); POTASSIUM 3.7 mmol/L (3.5-5.1); SGOT/AST 31 U/L (15-37); SGPT/ALT 21 U/L (13-61); SODIUM 141 mmol/L (136-145); TOT PROT 5.8 g/dl (6.4-8.2)
[2018-07-14] MEDS ORDERED: PANTOPRAZOLE SODIUM 40 MG VIAL IVPUSH ONE (13:49)
[2018-07-14] MEDS ORDERED: SUCRALFATE 1 GM TABLET (FP) PO ONE (13:50)
[2018-07-14] MEDS ORDERED: PANTOPRAZOLE SODIUM 40 MG/100 ML BAG IVPB ONE (14:00)
[2018-07-14] MEDS ORDERED: SUCRALFATE 1 GM TABLET (FP) ONE (14:00)
[2018-07-14 14:29] LABS: URINE APPEARANCE CLEAR; URINE BILIRUBIN NEGATIVE (<2.0 mg/dL); URINE COLOR STRAW; URINE GLUCOSE (UA) NEGATIVE (NEGATIVE); URINE KETONE NEGATIVE (NEGATIVE); URINE LEUK ESTERASE NEGATIVE (NEGATIVE); URINE NITRITE NEGATIVE (NEGATIVE); URINE PROTEIN NEGATIVE (NEGATIVE); URINE UROBILINOGEN NEGATIVE mg/dL (0.2-1.0)
[2018-07-14] MEDS ORDERED: LORazepam 2 MG/ML SDV VIAL ONE ×2 (14:33→19:34)
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
[2018-07-14] MEDS: SODIUM CHLORIDE 1,000 ML IV SCH ×2 (17:10→22:56)
[2018-07-14] MEDS: hydrALAZINE HCL 50 MG TABLET (FP) PO SCH (22:56)
[2018-07-14] MEDS: MOMETASONE FUROATE 220 MCG/IH INHALER IH SCH (22:58)
[2018-07-15] MEDS ORDERED: PT OWN MED DRAWER 7, Y5N ONE (00:01)
[2018-07-15] MEDS ORDERED: LEVOTHYROXINE NA 25 MCG TABLET (FP) ONE (06:05)
[2018-07-15] MEDS ORDERED: LEVOTHYROXINE NA 112 MCG TABLET (FP) ONE (06:05)
[2018-07-15] MEDS: LEVOTHYROXINE 112 MCG, LEVOTHYROXINE 25 MCG PO SCH (06:26)
[2018-07-15] MEDS: hydrALAZINE HCL 50 MG TABLET (FP) PO SCH ×3 (06:26→22:22)
[2018-07-15] MEDS ORDERED: LEVOTHYROXINE SODIUM 137 MCG PO SCH (07:00)
[2018-07-15 07:43] LABS: BASO % 0.7 % (0-2.0); EOS % 3.4 % (0-4.5); HEMATOCRIT 31.7 % (32.4-45.2); HEMOGLOBIN 10.2 GM/dL (10.7-15.3); MCH 24.8 pg (25.7-33.7); MEAN CELL VOLUME 77.3 fl (80-96); MEAN PLT VOLUME 8.5 fl (7.5-11.1); MONO % 9.9 % (3.8-10.2); PLATELET COUNT 281 K/MM3 (134-434); RBC 4.11 M/mm3 (3.60-5.2); RDW 16.4 % (11.6-15.6); WHITE BLOOD COUNT 7.8 K/mm3 (4.0-10.0)
[2018-07-15 08:14] LABS: ALBUMIN 2.8 g/dl (3.4-5.0); ALK PHOS 157 U/L (45-117); AMYLASE 83 U/L (25-115); ANION GAP 9 MMOL/L (8-16); BILIRUBIN,TOTAL 0.5 mg/dL (0.2-1); BLOOD UREA NITROGEN 19 mg/dL (7-18); CALCIUM 9.3 mg/dL (8.5-10.1); CHLORIDE 115 mmol/L (98-107); CO2 22 mmol/L (21-32); CREATININE 0.8 mg/dL (0.55-1.3); GLUCOSE,RANDOM 77 mg/dL (74-106); LIPASE 275 U/L (73-393); MAGNESIUM 1.8 mg/dL (1.8-2.4); PHOSPHOROUS 3.3 mg/dL (2.5-4.9); POTASSIUM 3.6 mmol/L (3.5-5.1); SGOT/AST 29 U/L (15-37); SGPT/ALT 18 U/L (13-61); SODIUM 146 mmol/L (136-145)
[2018-07-15] MEDS: CHOLECALCIFEROL (VITAMIN D3) 1,000 UNIT TABLET (FP) PO SCH (09:26)
[2018-07-15] MEDS: ENOXAPARIN NA (PORCINE) 40 MG/0.4 ML DISP.SYRIN SQ SCH (09:26)
[2018-07-15] MEDS: ASPIRIN 81 MG CHEWABLE TABLETS PO SCH (09:26)
[2018-07-15] MEDS: CYANOCOBALAMIN 1,000 MCG TABLET (FP) PO SCH (09:26)
--- NOTE | 2018-07-15 09:34 | PN ---
Progress Note (short form) - Note Progress Note: Dr. Shelby to document today. Still wonder if her renal status is acceptable if a MRI/MRCP or CT with contrast might discover some occult lesion.
[2018-07-15] MEDS ORDERED: FLU VACCINE QUAD 60 MCG/0.5 ML (MDV 18-19) IM ONE (10:00)
[2018-07-15] MEDS ORDERED: POLYETHYLENE GLYCOL 3350 119 GM BTL PO SCH (10:00)
[2018-07-15] MEDS ORDERED: FUROSEMIDE 20 MG TABLET (FP) PO SCH (10:00)
[2018-07-15] MEDS: SODIUM CHLORIDE 1,000 ML IV SCH (11:13)
[2018-07-15 15:48] VITALS: BMI 28.3
--- NOTE | 2018-07-15 15:53 | PN ---
GI Progress Note Subjective: GI NOte: Dr Doshi's coverage is appreciated. Michaela is feeling better and willing to try solids. - Objective Vital Signs: Vital Signs Temperature 97.7 F 07/15/18 15:36 Pulse Rate 69 07/15/18 15:36 Respiratory Rate 18 07/15/18 15:36 Blood Pressure 154/65 07/15/18 15:36 O2 Sat by Pulse Oximetry (%) 98 07/15/18 09:00 Gastrointestinal Inspection: Yes: WNL ...Auscultate: Yes: Hypoactive Bowel Sounds ...Palpate: Yes: Soft, Other (nontender) Labs: CBC, BMP 07/15/18 06:00 07/15/18 06:00 Problem List - Problems (1) Gastroparesis Assessment/Plan: Resolving, perhaps was influenced by tetracycline exposure. Diet advanced, If tolerated can consider discharge in AM. Discussed with Dr Shelby Code(s): K31.84 - GASTROPARESIS (2) Vomiting Code(s): R11.10 - VOMITING, UNSPECIFIED Qualifiers: Vomiting type: unspecified Vomiting Intractability: non-intractable Nausea presence: with nausea Qualified Code(s): R11.2 - Nausea with vomiting, unspecified
--- NOTE | 2018-07-15 16:35 | PN ---
Progress Note, Physician Chief Complaint: Ms Dorantes says she is feeling better today. Nausea is present but much improved. No vomiting. No cp or sob. - Current Medication List Current Medications: Active Medications Acetaminophen (Tylenol -) 650 mg PO Q4H PRN PRN Reason: FEVER Aspirin (Asa -) 81 mg PO DAILY [facility] Last Admin: 07/15/18 09:26 Dose: 81 mg Cholecalciferol (Vitamin D3 -) 2,000 unit PO DAILY [facility] Last Admin: 07/15/18 09:26 Dose: 2,000 unit Cyanocobalamin (Vitamin B12 -) 1,000 mcg PO DAILY [facility] Last Admin: 07/15/18 09:26 Dose: 1,000 mcg Docusate Sodium (Colace -) 100 mg PO TID [facility] Enoxaparin Sodium (Lovenox -) 40 mg SQ DAILY [facility] Last Admin: 07/15/18 09:26 Dose: 40 mg Hydralazine HCl (Apresoline -) 50 mg PO TID [facility] Last Admin: 07/15/18 13:39 Dose: 50 mg Sodium Chloride (Normal Saline -) 1,000 mls @ 75 mls/hr IV ASDIR [facility] Last Admin: 07/15/18 11:13 Dose: 75 mls/hr Levothyroxine Sodium 112 mcg/ (Levothyroxine Sodium 25 mcg) 137 mcg PO DAILY@ 0700 [facility] Last Admin: 07/15/18 06:26 Dose: 137 mcg Lorazepam (Ativan Injection -) 0.25 mg IVPUSH Q6H PRN PRN Reason: NAUSEA AND/OR VOMITING Last Admin: 07/14/18 19:38 Dose: 0.25 mg Mometasone Furoate (Asmanex 220mcg -) 1 puff IH HS [facility] Last Admin: 07/14/18 22:58 Dose: Not Given - Objective Vital Signs: Vital Signs Temperature 36.5 C 07/15/18 15:36 Pulse Rate 69 07/15/18 15:36 Respiratory Rate 18 07/15/18 15:36 Blood Pressure 154/65 07/15/18 15:36 O2 Sat by Pulse Oximetry (%) 98 07/15/18 09:00 Constitutional: Yes: Well Nourished, No Distress, Calm Cardiovascular: Yes: Regular Rate and Rhythm. No: Gallop, Murmur, Rub Respiratory: Yes: Regular, CTA Bilaterally. No: Rales, Rhonchi, Wheezes Gastrointestinal: Yes: Normal Bowel Sounds, Soft. No: Distention, Tenderness Extremities: Yes: WNL Edema: No Labs: CBC, BMP 07/15/18 06:00 07/15/18 06:00 Problem List - Problems (1) Intractable vomiting with nausea Code(s): R11.2 - NAUSEA WITH VOMITING, UNSPECIFIED Qualifiers: Vomiting type: unspecified Qualified Code(s): R11.2 - Nausea with vomiting , unspecified (2) Weight loss Code(s): R63.4 - ABNORMAL WEIGHT LOSS (3) Anxiety about health Code(s): F41.8 - OTHER SPECIFIED ANXIETY DISORDERS (4) COPD (chronic obstructive pulmonary disease) Code(s): J44.9 - CHRONIC OBSTRUCTIVE PULMONARY DISEASE, UNSPECIFIED Qualifiers: (5) Coronary artery disease Code(s): I25.10 - ATHSCL HEART DISEASE OF [place] CORONARY ARTERY W/O ANG PCTRS Qualifiers: [place] vs. transplanted heart: [place] heart Associated angina: without angina (6) GERD (gastroesophageal reflux disease) Code(s): K21.9 - GASTRO-ESOPHAGEAL REFLUX DISEASE WITHOUT ESOPHAGITIS Qualifiers: Esophagitis presence: without esophagitis Qualified Code(s): K21.9 - Gastro -esophageal reflux disease without esophagitis (7) Hyperlipidemia Code(s): E78.5 - HYPERLIPIDEMIA, UNSPECIFIED (8) Hypertension Code(s): I10 - ESSENTIAL (PRIMARY) HYPERTENSION Qualifiers: Hypertension type: essential hypertension Qualified Code(s): I10 - Essential (primary) hypertension (9) Hypothyroid Code(s): E03.9 - HYPOTHYROIDISM, UNSPECIFIED Qualifiers: (10) CHF (congestive heart failure) Code(s): I50.9 - HEART FAILURE, UNSPECIFIED Qualifiers: Heart failure type: diastolic Heart failure chronicity: chronic Qualified Code(s): I50.32 - Chronic diastolic (congestive) heart failure Assessment/Plan (1) Intractable vomiting with nausea Assessment/Plan: -case d/w Dr Mercedes -suspect exacerbated by doxycycline -advance diet today -continue prn ativan -if tolerates, discharge tomorrow morning Code(s): R11.2 - NAUSEA WITH VOMITING, UNSPECIFIED Qualifiers: Vomiting type: unspecified Qualified Code(s): R11.2 - Nausea with vomiting , unspecified (2) Weight loss Assessment/Plan: -secondary to intractable vomiting -as above Code(s): R63.4 - ABNORMAL WEIGHT LOSS (3) Anxiety about health Assessment/Plan: -prn ativan Code(s): F41.8 - OTHER SPECIFIED ANXIETY DISORDERS (4) COPD (chronic obstructive pulmonary disease) Assessment/Plan: -well controlled -continue asmanex Code(s): J44.9 - CHRONIC OBSTRUCTIVE PULMONARY DISEASE, UNSPECIFIED Qualifiers: (5) Coronary artery disease Assessment/Plan: -quiescent -continue home regimen Code(s): I25.10 - ATHSCL HEART DISEASE OF [place] CORONARY ARTERY W/O ANG PCTRS Qualifiers: [place] vs. transplanted heart: [place] heart Associated angina: without angina (6) GERD (gastroesophageal reflux disease) Assessment/Plan: -controlled Code(s): K21.9 - GASTRO-ESOPHAGEAL REFLUX DISEASE WITHOUT ESOPHAGITIS Qualifiers: Esophagitis presence: without esophagitis Qualified Code(s): K21.9 - Gastro -esophageal reflux disease without esophagitis (7) Hyperlipidemia Assessment/Plan: -will hold on lipitor at the moment -can restart on discharge Code(s): E78.5 - HYPERLIPIDEMIA, UNSPECIFIED (8) Hypertension Assessment/Plan: -continue hydralazine Code(s): I10 - ESSENTIAL (PRIMARY) HYPERTENSION Qualifiers: Hypertension type: essential hypertension Qualified Code(s): I10 - Essential (primary) hypertension (9) Hypothyroid Assessment/Plan: -continue synthroid Code(s): E03.9 - HYPOTHYROIDISM, UNSPECIFIED Qualifiers: (10) CHF (congestive heart failure) Assessment/Plan: -not in exacerbation -stop IVF since on diet Code(s): I50.9 - HEART FAILURE, UNSPECIFIED Qualifiers: Heart failure type: diastolic Heart failure chronicity: chronic Qualified Code(s): I50.32 - Chronic diastolic (congestive) heart failure Dispo -plan for discharge tomorrow if tolerates diet
[2018-07-15] MEDS: MOMETASONE FUROATE 220 MCG/IH INHALER IH SCH (22:21)
[2018-07-15] MEDS: DOCUSATE SODIUM 100 MG CAPSULE (FP) PO SCH (22:22)
[2018-07-16] MEDS: ACETAMINOPHEN 325 MG TABLET (FP) PO PRN (04:38)
[2018-07-16] MEDS ORDERED: LEVOTHYROXINE NA 25 MCG TABLET (FP) ONE (05:57)
[2018-07-16] MEDS ORDERED: LEVOTHYROXINE NA 112 MCG TABLET (FP) ONE (05:58)
[2018-07-16] MEDS: hydrALAZINE HCL 50 MG TABLET (FP) PO SCH ×3 (06:17→22:26)
[2018-07-16] MEDS: LEVOTHYROXINE 112 MCG, LEVOTHYROXINE 25 MCG PO SCH (06:17)
[2018-07-16] MEDS: DOCUSATE SODIUM 100 MG CAPSULE (FP) PO SCH ×3 (06:17→22:26)
[2018-07-16 07:34] LABS: BASO % 0.5 % (0-2.0); EOS % 3.2 % (0-4.5); HEMATOCRIT 28.4 % (32.4-45.2); HEMOGLOBIN 9.3 GM/dL (10.7-15.3); MCH 25.2 pg (25.7-33.7); MCHC 32.7 g/dl (32.0-36.0); MEAN CELL VOLUME 77.2 fl (80-96); MEAN PLT VOLUME 8.4 fl (7.5-11.1); MONO % 14.3 % (3.8-10.2); PLATELET COUNT 224 K/MM3 (134-434); RBC 3.68 M/mm3 (3.60-5.2); RDW 16.4 % (11.6-15.6); WHITE BLOOD COUNT 5.6 K/mm3 (4.0-10.0)
[2018-07-16 08:33] LABS: ANION GAP 7 MMOL/L (8-16); BLOOD UREA NITROGEN 16 mg/dL (7-18); CALCIUM 8.8 mg/dL (8.5-10.1); CHLORIDE 113 mmol/L (98-107); CO2 23 mmol/L (21-32); CREATININE 0.8 mg/dL (0.55-1.3); GLUCOSE,RANDOM 89 mg/dL (74-106); MAGNESIUM 1.8 mg/dL (1.8-2.4); PHOSPHOROUS 2.8 mg/dL (2.5-4.9); POTASSIUM 3.2 mmol/L (3.5-5.1); SODIUM 143 mmol/L (136-145)
--- NOTE | 2018-07-16 09:05 | PN ---
Progress Note, Physician Chief Complaint: Nausea, no vomiting - Current Medication List Current Medications: Active Medications Acetaminophen (Tylenol -) 650 mg PO Q4H PRN PRN Reason: FEVER Last Admin: 07/16/18 04:38 Dose: 650 mg Aspirin (Asa -) 81 mg PO DAILY [facility] Last Admin: 07/15/18 09:26 Dose: 81 mg Cholecalciferol (Vitamin D3 -) 2,000 unit PO DAILY [facility] Last Admin: 07/15/18 09:26 Dose: 2,000 unit Cyanocobalamin (Vitamin B12 -) 1,000 mcg PO DAILY [facility] Last Admin: 07/15/18 09:26 Dose: 1,000 mcg Docusate Sodium (Colace -) 100 mg PO TID [facility] Last Admin: 07/16/18 06:17 Dose: 100 mg Enoxaparin Sodium (Lovenox -) 40 mg SQ DAILY [facility] Last Admin: 07/15/18 09:26 Dose: 40 mg Hydralazine HCl (Apresoline -) 50 mg PO TID [facility] Last Admin: 07/16/18 06:17 Dose: 50 mg Levothyroxine Sodium 112 mcg/ (Levothyroxine Sodium 25 mcg) 137 mcg PO DAILY@ 0700 [facility] Last Admin: 07/16/18 06:17 Dose: 137 mcg Lorazepam (Ativan Injection -) 0.25 mg IVPUSH Q6H PRN PRN Reason: NAUSEA AND/OR VOMITING Mometasone Furoate (Asmanex 220mcg -) 1 puff IH HS [facility] Last Admin: 07/15/18 22:21 Dose: Not Given Potassium Chloride (Potassium Chloride Oral Liquid) 40 meq PO BID [facility] - Objective Vital Signs: Vital Signs Temperature 98 F 07/16/18 06:01 Pulse Rate 70 07/16/18 06:01 Respiratory Rate 18 07/16/18 06:01 Blood Pressure 139/54 L 07/16/18 06:01 O2 Sat by Pulse Oximetry (%) 98 07/15/18 21:00 Constitutional: Yes: Well Nourished, No Distress, Calm Cardiovascular: Yes: Regular Rate and Rhythm. No: Gallop, Murmur, Rub Respiratory: Yes: Regular, CTA Bilaterally. No: Rales, Rhonchi, Wheezes Gastrointestinal: Yes: Normal Bowel Sounds, Soft. No: Distention, Tenderness Extremities: Yes: WNL Edema: No Labs: CBC, BMP 07/16/18 06:15 07/16/18 06:15 Problem List - Problems (1) Intractable vomiting with nausea Assessment/Plan: Improving no c/o nausea, no vomiting advance Po as tolerates Code(s): R11.2 - NAUSEA WITH VOMITING, UNSPECIFIED Qualifiers: Vomiting type: unspecified Qualified Code(s): R11.2 - Nausea with vomiting , unspecified (2) Acute kidney injury Assessment/Plan: Resolved Code(s): N17.9 - ACUTE KIDNEY FAILURE, UNSPECIFIED (3) COPD (chronic obstructive pulmonary disease) Assessment/Plan: Stable denies any SOB Code(s): J44.9 - CHRONIC OBSTRUCTIVE PULMONARY DISEASE, UNSPECIFIED Qualifiers: (4) Coronary artery disease Assessment/Plan: Stable no active issue Code(s): I25.10 - ATHSCL HEART DISEASE OF [place] CORONARY ARTERY W/O ANG PCTRS Qualifiers: [place] vs. transplanted heart: [place] heart Associated angina: without angina (5) GERD (gastroesophageal reflux disease) Assessment/Plan: Cont PPI Code(s): K21.9 - GASTRO-ESOPHAGEAL REFLUX DISEASE WITHOUT ESOPHAGITIS Qualifiers: Esophagitis presence: without esophagitis Qualified Code(s): K21.9 - Gastro -esophageal reflux disease without esophagitis (6) Hypokalemia Assessment/Plan: PO Kcl 40 meq twice F/U BMP in am Code(s): E87.6 - HYPOKALEMIA (7) Hypertension Assessment/Plan: Cont Current meds Code(s): I10 - ESSENTIAL (PRIMARY) HYPERTENSION Qualifiers: Hypertension type: essential hypertension Qualified Code(s): I10 - Essential (primary) hypertension (8) Hypothyroid Assessment/Plan: Cont Levothyroxine Code(s): E03.9 - HYPOTHYROIDISM, UNSPECIFIED Qualifiers:
[2018-07-16] MEDS: POTASSIUM CHLORIDE TABS 20 MEQ TABLET.ER (FP) PO SCH ×2 (09:50→22:26)
[2018-07-16] MEDS: ASPIRIN 81 MG CHEWABLE TABLETS PO SCH (09:51)
[2018-07-16] MEDS: CHOLECALCIFEROL (VITAMIN D3) 1,000 UNIT TABLET (FP) PO SCH (09:51)
[2018-07-16] MEDS: ENOXAPARIN NA (PORCINE) 40 MG/0.4 ML DISP.SYRIN SQ SCH (09:52)
[2018-07-16] MEDS: CYANOCOBALAMIN 1,000 MCG TABLET (FP) PO SCH (09:55)
[2018-07-16] MEDS ORDERED: POTASSIUM CHLORIDE ORAL LIQUID 20 MEQ/15 ML PO SCH (10:00)
[2018-07-16] MEDS ORDERED: WATER IVPUSH PRN (13:15)
[2018-07-16] MEDS ORDERED: DEXTROSE 5% IVPUSH PRN (13:15)
[2018-07-16] MEDS ORDERED: ONDANSETRON IVPUSH PRN (13:15)
[2018-07-16] MEDS ORDERED: ONDANSETRON 4 MG/2 ML VIAL ONE (13:17)
[2018-07-16] MEDS ORDERED: GLYCERIN 1 RECTAL SUPPOSITORY, ADULT RC ONE (17:30)
[2018-07-16] MEDS: LORazepam 2 MG/ML SDV VIAL IVPUSH PRN ×2 (18:39→23:59)
[2018-07-16] MEDS ORDERED: ONDANSETRON 4 MG/2 ML VIAL IVPB PRN (19:18)
[2018-07-16] MEDS: ONDANSETRON 4 MG/2 ML VIAL IVPUSH PRN (22:26)
[2018-07-16] MEDS: MOMETASONE FUROATE 220 MCG/IH INHALER IH SCH (22:37)
[2018-07-17] MEDS ORDERED: LEVOTHYROXINE NA 25 MCG TABLET (FP) ONE (06:17)
[2018-07-17] MEDS ORDERED: LEVOTHYROXINE NA 112 MCG TABLET (FP) ONE (06:17)
[2018-07-17] MEDS: hydrALAZINE HCL 50 MG TABLET (FP) PO SCH ×3 (06:19→21:26)
[2018-07-17] MEDS: LEVOTHYROXINE 112 MCG, LEVOTHYROXINE 25 MCG PO SCH (06:19)
[2018-07-17] MEDS: DOCUSATE SODIUM 100 MG CAPSULE (FP) PO SCH ×3 (06:19→21:27)
[2018-07-17] MEDS: ASPIRIN 81 MG CHEWABLE TABLETS PO SCH (10:08)
[2018-07-17] MEDS: ENOXAPARIN NA (PORCINE) 40 MG/0.4 ML DISP.SYRIN SQ SCH (10:08)
[2018-07-17] MEDS: CHOLECALCIFEROL (VITAMIN D3) 1,000 UNIT TABLET (FP) PO SCH (10:09)
[2018-07-17] MEDS: CYANOCOBALAMIN 1,000 MCG TABLET (FP) PO SCH (10:09)
--- NOTE | 2018-07-17 12:42 | PN ---
Progress Note, Physician Chief Complaint: Vomited in am denies any abd pain c/o constipation - Current Medication List Current Medications: Active Medications Active Medications Acetaminophen (Tylenol -) 650 mg PO Q4H PRN PRN Reason: FEVER Last Admin: 07/16/18 04:38 Dose: 650 mg Aspirin (Asa -) 81 mg PO DAILY [facility] Last Admin: 07/17/18 10:08 Dose: 81 mg Cholecalciferol (Vitamin D3 -) 2,000 unit PO DAILY [facility] Last Admin: 07/17/18 10:09 Dose: 2,000 unit Cyanocobalamin (Vitamin B12 -) 1,000 mcg PO DAILY [facility] Last Admin: 07/17/18 10:09 Dose: 1,000 mcg Docusate Sodium (Colace -) 100 mg PO TID [facility] Last Admin: 07/17/18 06:19 Dose: 100 mg Enoxaparin Sodium (Lovenox -) 40 mg SQ DAILY [facility] Last Admin: 07/17/18 10:08 Dose: 40 mg Hydralazine HCl (Apresoline -) 50 mg PO TID [facility] Last Admin: 07/17/18 06:19 Dose: 50 mg Famotidine/Sodium Chloride (Pepcid 20 Mg Premixed Ivpb -) 20 mg in 50 mls @ 100 mls/hr IVPB BID [facility] Levothyroxine Sodium 112 mcg/ (Levothyroxine Sodium 25 mcg) 137 mcg PO DAILY@ 0700 [facility] Last Admin: 07/17/18 06:19 Dose: 137 mcg Lorazepam (Ativan Injection -) 0.25 mg IVPUSH Q6H PRN PRN Reason: NAUSEA AND/OR VOMITING Last Admin: 07/16/18 23:59 Dose: 0.25 mg Metoclopramide HCl (Reglan Injection -) 10 mg IVPUSH Q8H PRN PRN Reason: NAUSEA AND/OR VOMITING Mometasone Furoate (Asmanex 220mcg -) 1 puff IH HS [facility] Last Admin: 07/16/18 22:37 Dose: Not Given Ondansetron HCl (Zofran Injection) 4 mg IVPUSH Q6H PRN PRN Reason: NAUSEA AND/OR VOMITING Last Admin: 07/16/18 22:26 Dose: 4 mg - Objective Vital Signs: Vital Signs Temperature 97.8 F 07/17/18 06:31 Pulse Rate 65 07/17/18 06:31 Respiratory Rate 18 07/17/18 06:31 Blood Pressure 151/59 L 07/17/18 06:31 O2 Sat by Pulse Oximetry (%) 96 07/16/18 21:00 Constitutional: No Distress, Calm HEENT: Mm moist, no anemia NECK: No JVD NO Bruit Cardiovascular: S1S2 Regular Rate and Rhythm. No: Gallop, Murmur, Rub Respiratory: Regular, CTA Bilaterally. Gastrointestinal: Normal Bowel Sounds, Soft. No: Distention, mild Tenderness Extremities: No Edema , no calf tenderness Pulses +2 [employer]CH[employer]ECT: AOX3 non focal Labs: CBC, BMP 07/16/18 06:15 07/16/18 06:15 Problem List - Problems (1) Intractable vomiting with nausea Assessment/Plan: Doxy induced Gastritis, Improving no c/o nausea, vomited once add Metclopramide PRN and IV Pepcid Code(s): R11.2 - NAUSEA WITH VOMITING, UNSPECIFIED Qualifiers: Vomiting type: unspecified Qualified Code(s): R11.2 - Nausea with vomiting , unspecified (2) Acute kidney injury Assessment/Plan: Resolved Code(s): N17.9 - ACUTE KIDNEY FAILURE, UNSPECIFIED (3) COPD (chronic obstructive pulmonary disease) Assessment/Plan: Stable denies any SOB Code(s): J44.9 - CHRONIC OBSTRUCTIVE PULMONARY DISEASE, UNSPECIFIED Qualifiers: (4) Coronary artery disease Assessment/Plan: Stable no active issue Code(s): I25.10 - ATHSCL HEART DISEASE OF [place] CORONARY ARTERY W/O ANG PCTRS Qualifiers: [place] vs. transplanted heart: [place] heart Associated angina: without angina (5) GERD (gastroesophageal reflux disease) Assessment/Plan: added Famotidine Code(s): K21.9 - GASTRO-ESOPHAGEAL REFLUX DISEASE WITHOUT ESOPHAGITIS Qualifiers: Esophagitis presence: without esophagitis Qualified Code(s): K21.9 - Gastro -esophageal reflux disease without esophagitis (6) Hypokalemia Assessment/Plan: PO Kcl 40 meq twice F/U BMP in am Code(s): E87.6 - HYPOKALEMIA (7) Hypertension Assessment/Plan: Cont Current meds Code(s): I10 - ESSENTIAL (PRIMARY) HYPERTENSION Qualifiers: Hypertension type: essential hypertension Qualified Code(s): I10 - Essential (primary) hypertension (8) Hypothyroid Assessment/Plan: Cont Levothyroxine Code(s): E03.9 - HYPOTHYROIDISM, UNSPECIFIED Qualifiers:
[2018-07-17] MEDS: FAMOTIDINE 20 MG/50 ML IVPB 20 MG/50 ML MG IVPB SCH ×2 (13:11→21:27)
[2018-07-17 15:55] LABS: BASO % 0.7 % (0-2.0); HEMATOCRIT 29.1 % (32.4-45.2); HEMOGLOBIN 9.4 GM/dL (10.7-15.3); LYMPH % 22.7 % (8-40); MCH 25.4 pg (25.7-33.7); MCHC 32.5 g/dl (32.0-36.0); MEAN PLT VOLUME 8.8 fl (7.5-11.1); MONO % 13.5 % (3.8-10.2); NEUT % 59.1 % (42.8-82.8); PLATELET COUNT 256 K/MM3 (134-434); RBC 3.73 M/mm3 (3.60-5.2); RDW 16.7 % (11.6-15.6); WHITE BLOOD COUNT 6.4 K/mm3 (4.0-10.0)
[2018-07-17 16:01] LABS: ANION GAP 8 MMOL/L (8-16); BLOOD UREA NITROGEN 16 mg/dL (7-18); CALCIUM 9.5 mg/dL (8.5-10.1); CHLORIDE 115 mmol/L (98-107); CO2 23 mmol/L (21-32); CREATININE 0.7 mg/dL (0.55-1.3); GLUCOSE,RANDOM 91 mg/dL (74-106); SODIUM 146 mmol/L (136-145)
[2018-07-17] MEDS: ACETAMINOPHEN 325 MG TABLET (FP) PO PRN (18:31)
[2018-07-17] MEDS: METOCLOPRAMIDE HCL INJECTION 10 MG/2 ML VIAL IVPUSH PRN (20:11)
[2018-07-17] MEDS: MOMETASONE FUROATE 220 MCG/IH INHALER IH SCH (21:28)
[2018-07-18] MEDS ORDERED: LEVOTHYROXINE NA 25 MCG TABLET (FP) ONE (06:19)
[2018-07-18] MEDS ORDERED: LEVOTHYROXINE NA 112 MCG TABLET (FP) ONE (06:19)
[2018-07-18] MEDS: LEVOTHYROXINE 112 MCG, LEVOTHYROXINE 25 MCG PO SCH (06:29)
[2018-07-18] MEDS: hydrALAZINE HCL 50 MG TABLET (FP) PO SCH ×3 (06:29→23:04)
[2018-07-18] MEDS: DOCUSATE SODIUM 100 MG CAPSULE (FP) PO SCH ×3 (06:29→23:04)
[2018-07-18 06:38] LABS: EOS % 6.6 % (0-4.5); HEMATOCRIT 28.1 % (32.4-45.2); HEMOGLOBIN 9.1 GM/dL (10.7-15.3); LYMPH % 26.3 % (8-40); MCH 25.1 pg (25.7-33.7); MCHC 32.3 g/dl (32.0-36.0); MEAN CELL VOLUME 77.6 fl (80-96); MEAN PLT VOLUME 8.4 fl (7.5-11.1); MONO % 14.2 % (3.8-10.2); NEUT % 51.9 % (42.8-82.8); PLATELET COUNT 221 K/MM3 (134-434); RBC 3.61 M/mm3 (3.60-5.2); RDW 16.8 % (11.6-15.6); WHITE BLOOD COUNT 4.6 K/mm3 (4.0-10.0)
[2018-07-18 06:54] LABS: ANION GAP 6 MMOL/L (8-16); BLOOD UREA NITROGEN 15 mg/dL (7-18); CALCIUM 9.2 mg/dL (8.5-10.1); CHLORIDE 114 mmol/L (98-107); CO2 24 mmol/L (21-32); CREATININE 0.7 mg/dL (0.55-1.3); GLUCOSE,RANDOM 81 mg/dL (74-106); POTASSIUM 3.9 mmol/L (3.5-5.1); SODIUM 145 mmol/L (136-145)
--- NOTE | 2018-07-18 09:46 | PN ---
Progress Note (short form) - Note Progress Note: The patient continues to have nausea. Tolerates some of her diet and no vomiting. She is off Losartan for about 10 days and that was thought to be causing inflammatory changes on a recent bowel Bx. Now that she is off Losartan her renal function is back to normal and I still think a study with contrast, whether MRI Abdomen and MRCP or Ct scan of Abdomen/ Pelvis should be considered. She has not had a CT of the Abdomen Pelvis since 2012. I await input from GI MD .
[2018-07-18] MEDS: ASPIRIN 81 MG CHEWABLE TABLETS PO SCH (10:44)
[2018-07-18] MEDS: FAMOTIDINE 20 MG/50 ML IVPB 20 MG/50 ML MG IVPB SCH ×2 (10:44→23:08)
[2018-07-18] MEDS: ENOXAPARIN NA (PORCINE) 40 MG/0.4 ML DISP.SYRIN SQ SCH (10:44)
[2018-07-18] MEDS: CYANOCOBALAMIN 1,000 MCG TABLET (FP) PO SCH (10:44)
[2018-07-18] MEDS: CHOLECALCIFEROL (VITAMIN D3) 1,000 UNIT TABLET (FP) PO SCH (10:44)
[2018-07-18] MEDS: ONDANSETRON 4 MG/2 ML VIAL IVPUSH PRN ×2 (11:22→17:25)
--- NOTE | 2018-07-18 13:26 | PN ---
Progress Note, Physician Chief Complaint: Ms Dorantes still with nausea and difficulty eating. No cp or sob. - Current Medication List Current Medications: Active Medications Acetaminophen (Tylenol -) 650 mg PO Q4H PRN PRN Reason: FEVER Last Admin: 07/17/18 18:31 Dose: 650 mg Aspirin (Asa -) 81 mg PO DAILY [facility] Last Admin: 07/18/18 10:44 Dose: 81 mg Cholecalciferol (Vitamin D3 -) 2,000 unit PO DAILY [facility] Last Admin: 07/18/18 10:44 Dose: 2,000 unit Cyanocobalamin (Vitamin B12 -) 1,000 mcg PO DAILY [facility] Last Admin: 07/18/18 10:44 Dose: 1,000 mcg Docusate Sodium (Colace -) 100 mg PO TID [facility] Last Admin: 07/18/18 06:29 Dose: 100 mg Enoxaparin Sodium (Lovenox -) 40 mg SQ DAILY [facility] Last Admin: 07/18/18 10:44 Dose: 40 mg Hydralazine HCl (Apresoline -) 50 mg PO TID [facility] Last Admin: 07/18/18 06:29 Dose: 50 mg Famotidine/Sodium Chloride (Pepcid 20 Mg Premixed Ivpb -) 20 mg in 50 mls @ 100 mls/hr IVPB BID [facility] Last Admin: 07/18/18 10:44 Dose: 100 mls/hr Levothyroxine Sodium 112 mcg/ (Levothyroxine Sodium 25 mcg) 137 mcg PO DAILY@ 0700 [facility] Last Admin: 07/18/18 06:29 Dose: 137 mcg Lorazepam (Ativan Injection -) 0.25 mg IVPUSH Q6H PRN PRN Reason: NAUSEA AND/OR VOMITING Last Admin: 07/16/18 23:59 Dose: 0.25 mg Metoclopramide HCl (Reglan Injection -) 10 mg IVPUSH Q8H PRN PRN Reason: NAUSEA AND/OR VOMITING Last Admin: 07/17/18 20:11 Dose: 10 mg Mometasone Furoate (Asmanex 220mcg -) 1 puff IH HS [facility] Last Admin: 07/17/18 21:28 Dose: Not Given Ondansetron HCl (Zofran Injection) 4 mg IVPUSH Q6H PRN PRN Reason: NAUSEA AND/OR VOMITING Last Admin: 07/18/18 11:22 Dose: 4 mg - Objective Vital Signs: Vital Signs Temperature 36.9 C 07/18/18 08:55 Pulse Rate 83 07/18/18 08:55 Respiratory Rate 20 07/18/18 08:55 Blood Pressure 133/66 07/18/18 08:55 O2 Sat by Pulse Oximetry (%) 97 07/17/18 21:00 Constitutional: Yes: Well Nourished, No Distress, Calm Cardiovascular: Yes: Regular Rate and Rhythm. No: Gallop, Murmur, Rub Respiratory: Yes: Regular, CTA Bilaterally. No: Rales, Rhonchi, Wheezes Gastrointestinal: Yes: Normal Bowel Sounds, Soft. No: Distention, Tenderness Extremities: Yes: WNL Edema: No Labs: CBC, BMP 07/18/18 06:00 07/18/18 06:00 Problem List - Problems (1) Intractable vomiting with nausea Code(s): R11.2 - NAUSEA WITH VOMITING, UNSPECIFIED Qualifiers: Vomiting type: unspecified Qualified Code(s): R11.2 - Nausea with vomiting , unspecified (2) Weight loss Code(s): R63.4 - ABNORMAL WEIGHT LOSS (3) Anxiety about health Code(s): F41.8 - OTHER SPECIFIED ANXIETY DISORDERS (4) COPD (chronic obstructive pulmonary disease) Code(s): J44.9 - CHRONIC OBSTRUCTIVE PULMONARY DISEASE, UNSPECIFIED Qualifiers: (5) Coronary artery disease Code(s): I25.10 - ATHSCL HEART DISEASE OF [place] CORONARY ARTERY W/O ANG PCTRS Qualifiers: [place] vs. transplanted heart: [place] heart Associated angina: without angina (6) GERD (gastroesophageal reflux disease) Code(s): K21.9 - GASTRO-ESOPHAGEAL REFLUX DISEASE WITHOUT ESOPHAGITIS Qualifiers: Esophagitis presence: without esophagitis Qualified Code(s): K21.9 - Gastro -esophageal reflux disease without esophagitis (7) Hyperlipidemia Code(s): E78.5 - HYPERLIPIDEMIA, UNSPECIFIED (8) Hypertension Code(s): I10 - ESSENTIAL (PRIMARY) HYPERTENSION Qualifiers: Hypertension type: essential hypertension Qualified Code(s): I10 - Essential (primary) hypertension (9) Hypothyroid Code(s): E03.9 - HYPOTHYROIDISM, UNSPECIFIED Qualifiers: (10) CHF (congestive heart failure) Code(s): I50.9 - HEART FAILURE, UNSPECIFIED Qualifiers: Heart failure type: diastolic Heart failure chronicity: chronic Qualified Code(s): I50.32 - Chronic diastolic (congestive) heart failure Assessment/Plan (1) Intractable vomiting with nausea Assessment/Plan: -still with difficulty eating -encourage anti-nausea medication -possible d/c tomorrow Code(s): R11.2 - NAUSEA WITH VOMITING, UNSPECIFIED Qualifiers: Vomiting type: unspecified Qualified Code(s): R11.2 - Nausea with vomiting , unspecified (2) Weight loss Assessment/Plan: -secondary to intractable vomiting -as above Code(s): R63.4 - ABNORMAL WEIGHT LOSS (3) Anxiety about health Assessment/Plan: -prn ativan Code(s): F41.8 - OTHER SPECIFIED ANXIETY DISORDERS (4) COPD (chronic obstructive pulmonary disease) Assessment/Plan: -well controlled -continue asmanex Code(s): J44.9 - CHRONIC OBSTRUCTIVE PULMONARY DISEASE, UNSPECIFIED Qualifiers: (5) Coronary artery disease Assessment/Plan: -quiescent -continue home regimen Code(s): I25.10 - ATHSCL HEART DISEASE OF [place] CORONARY ARTERY W/O ANG PCTRS Qualifiers: [place] vs. transplanted heart: [place] heart Associated angina: without angina (6) GERD (gastroesophageal reflux disease) Assessment/Plan: -controlled Code(s): K21.9 - GASTRO-ESOPHAGEAL REFLUX DISEASE WITHOUT ESOPHAGITIS Qualifiers: Esophagitis presence: without esophagitis Qualified Code(s): K21.9 - Gastro -esophageal reflux disease without esophagitis (7) Hyperlipidemia Assessment/Plan: -will hold on lipitor at the moment -can restart on discharge Code(s): E78.5 - HYPERLIPIDEMIA, UNSPECIFIED (8) Hypertension Assessment/Plan: -continue hydralazine Code(s): I10 - ESSENTIAL (PRIMARY) HYPERTENSION Qualifiers: Hypertension type: essential hypertension Qualified Code(s): I10 - Essential (primary) hypertension (9) Hypothyroid Assessment/Plan: -continue synthroid Code(s): E03.9 - HYPOTHYROIDISM, UNSPECIFIED Qualifiers: (10) CHF (congestive heart failure) Assessment/Plan: -not in exacerbation Code(s): I50.9 - HEART FAILURE, UNSPECIFIED Qualifiers: Heart failure type: diastolic Heart failure chronicity: chronic Qualified Code(s): I50.32 - Chronic diastolic (congestive) heart failure Dispo -plan for discharge tomorrow if tolerates diet
[2018-07-18] MEDS: METOCLOPRAMIDE HCL INJECTION 10 MG/2 ML VIAL IVPUSH PRN (15:12)
[2018-07-18] MEDS ORDERED: MINERAL OIL ENEMA 133 ML ENEMA PR ONE (18:15)
[2018-07-18] MEDS: LORazepam 2 MG/ML SDV VIAL IVPUSH PRN (23:06)
[2018-07-18] MEDS: MOMETASONE FUROATE 220 MCG/IH INHALER IH SCH (23:55)
[2018-07-19] MEDS ORDERED: LEVOTHYROXINE NA 112 MCG TABLET (FP) ONE (05:41)
[2018-07-19] MEDS ORDERED: LEVOTHYROXINE NA 25 MCG TABLET (FP) ONE (05:41)
[2018-07-19 05:54] VITALS: PULSE 69
[2018-07-19] MEDS: LEVOTHYROXINE 112 MCG, LEVOTHYROXINE 25 MCG PO SCH (06:07)
[2018-07-19] MEDS: hydrALAZINE HCL 50 MG TABLET (FP) PO SCH ×2 (06:08→13:21)
[2018-07-19] MEDS: DOCUSATE SODIUM 100 MG CAPSULE (FP) PO SCH ×2 (06:08→13:21)
[2018-07-19 07:20] LABS: BASO % 0.8 % (0-2.0); EOS % 5.5 % (0-4.5); HEMATOCRIT 28.6 % (32.4-45.2); HEMOGLOBIN 9.4 GM/dL (10.7-15.3); MCH 25.4 pg (25.7-33.7); MCHC 32.9 g/dl (32.0-36.0); MEAN CELL VOLUME 77.2 fl (80-96); MEAN PLT VOLUME 8.5 fl (7.5-11.1); NEUT % 50.7 % (42.8-82.8); PLATELET COUNT 232 K/MM3 (134-434); RDW 16.8 % (11.6-15.6); WHITE BLOOD COUNT 4.5 K/mm3 (4.0-10.0)
[2018-07-19 07:56] LABS: ANION GAP 8 MMOL/L (8-16); BLOOD UREA NITROGEN 14 mg/dL (7-18); CALCIUM 9.1 mg/dL (8.5-10.1); CHLORIDE 113 mmol/L (98-107); CO2 24 mmol/L (21-32); CREATININE 0.7 mg/dL (0.55-1.3); GLUCOSE,RANDOM 74 mg/dL (74-106); MAGNESIUM 1.8 mg/dL (1.8-2.4); POTASSIUM 3.6 mmol/L (3.5-5.1); SODIUM 145 mmol/L (136-145)
[2018-07-19] MEDS: CHOLECALCIFEROL (VITAMIN D3) 1,000 UNIT TABLET (FP) PO SCH (09:42)
[2018-07-19] MEDS: FAMOTIDINE 20 MG/50 ML IVPB 20 MG/50 ML MG IVPB SCH (09:42)
[2018-07-19] MEDS: CYANOCOBALAMIN 1,000 MCG TABLET (FP) PO SCH (09:42)
[2018-07-19] MEDS: ASPIRIN 81 MG CHEWABLE TABLETS PO SCH (09:42)
[2018-07-19] MEDS: ENOXAPARIN NA (PORCINE) 40 MG/0.4 ML DISP.SYRIN SQ SCH (09:42)
[2018-07-19 10:26] VITALS: BP 128/68; TEMP 98
--- NOTE | 2018-07-19 10:58 | PN ---
Progress Note (short form) - Note Progress Note: Dr. Shelby to document today. Patient is tolerating breakfast and about 2/3 of her other meals. Still nausea off and on but no Vomiting. I still doubt her allergy listing to contrast because she says she got very lightheaded and dizzy from a 2013 CT scan + contrast and nuclear stress test. No rash or SOB according to the patient. In any case if her nausea which is somewhat improved will further improve off of the Losartan which may be the source of her recent Bx proven inflammation then maybe more time is needed for that to heal. She agreed. Rectal exam: No impaction. She awaits BM. Is willing to go home today.
[2018-07-19] MEDS ORDERED: GLYCERIN 1 RECTAL SUPPOSITORY, ADULT RC ONE (11:00)
[2018-07-19] MEDS ORDERED: PT OWN MED DRAWER 7, Y5N ONE (13:03)
--- NOTE | 2018-07-19 15:15 | DS ---
Physical Examination Vital Signs: Vital Signs Temperature 36.7 C 07/19/18 09:00 Pulse Rate 69 07/19/18 05:53 Respiratory Rate 80 H 07/19/18 09:00 Blood Pressure 128/68 07/19/18 09:00 O2 Sat by Pulse Oximetry (%) 98 07/19/18 09:00 Constitutional: Yes: Well Nourished, No Distress, Calm Cardiovascular: Yes: Regular Rate and Rhythm. No: Gallop, Murmur, Rub Respiratory: Yes: Regular, CTA Bilaterally. No: Rales, Rhonchi, Wheezes Gastrointestinal: Yes: Normal Bowel Sounds, Soft. No: Distention, Tenderness Extremities: Yes: WNL Edema: No Labs: CBC, BMP 07/19/18 06:00 07/19/18 06:00 Discharge Summary Reason For Visit: INTRACTABLE VOMITING WITH NAUSEA Hospital Course: (1) Intractable vomiting with nausea Code(s): R11.2 - NAUSEA WITH VOMITING, UNSPECIFIED Qualifiers: Vomiting type: unspecified Qualified Code(s): R11.2 - Nausea with vomiting , unspecified (2) Weight loss Code(s): R63.4 - ABNORMAL WEIGHT LOSS (3) Anxiety about health Code(s): F41.8 - OTHER SPECIFIED ANXIETY DISORDERS (4) COPD (chronic obstructive pulmonary disease) Code(s): J44.9 - CHRONIC OBSTRUCTIVE PULMONARY DISEASE, UNSPECIFIED Qualifiers: (5) Coronary artery disease Code(s): I25.10 - ATHSCL HEART DISEASE OF [place] CORONARY ARTERY W/O ANG PCTRS Qualifiers: [place] vs. transplanted heart: [place] heart Associated angina: without angina (6) GERD (gastroesophageal reflux disease) Code(s): K21.9 - GASTRO-ESOPHAGEAL REFLUX DISEASE WITHOUT ESOPHAGITIS Qualifiers: Esophagitis presence: without esophagitis Qualified Code(s): K21.9 - Gastro -esophageal reflux disease without esophagitis (7) Hyperlipidemia Code(s): E78.5 - HYPERLIPIDEMIA, UNSPECIFIED (8) Hypertension Code(s): I10 - ESSENTIAL (PRIMARY) HYPERTENSION Qualifiers: Hypertension type: essential hypertension Qualified Code(s): I10 - Essential (primary) hypertension (9) Hypothyroid Code(s): E03.9 - HYPOTHYROIDISM, UNSPECIFIED Qualifiers: (10) CHF (congestive heart failure) Code(s): I50.9 - HEART FAILURE, UNSPECIFIED Qualifiers: Heart failure type: diastolic Heart failure chronicity: chronic Qualified Code(s): I50.32 - Chronic diastolic (congestive) heart failure Ms Dorantes is a very pleasant 82 year old female who comes in with intractable nausea and vomiting that was exacerbated by doxycycline. She was admitted to the hospital and the doxycycline was stopped. She was given IVF and ativan which helped her nausea, however she did not like taking the ativan as it caused lethargy. She was trialled on zofran which helped. She is currently able to tolerate diet. She is safe for discharge home. 32 minutes spent in preparation of this discharge Condition: Good - Instructions Diet, Activity, Other Instructions: resume previous diet and activity Referrals: Darell Claire MD [Primary Care Provider] - 1 Week Matti Mercedes MD [Staff Physician] - Disposition: HOME - Home Medications Comprehensive Discharge Medication List: Ambulatory Orders Aspirin 81 mg PO DAILY 01/02/18 Cyanocobalamin [Vitamin B12 -] 1,000 mcg PO DAILY 01/02/18 Furosemide 20 mg PO DAILY 01/02/18 Hydralazine HCl 50 mg PO TID 01/02/18 Levothyroxine Sodium [Levoxyl] 137 mcg PO ACBK 01/02/18 Polyethylene Glycol 3350 [Miralax 119 gm Btl -] 17 gm PO DAILY 01/02/18 Cholecalciferol (Vitamin D3) [Vitamin D3] 2,000 unit PO DAILY 01/28/18 Potassium Chloride [K-Dur -] 20 meq PO DAILY 01/28/18 Atorvastatin Ca [Lipitor] 20 mg PO HS 07/10/18 Fluticasone Propionate [Flovent Diskus] 50 mcg IH BID PRN 07/10/18 Docusate Sodium [Colace -] 100 mg PO TID #90 capsule 07/19/18
== END 2018-07-19 13:41 | disposition home or self-care (01) | DRG 392 ==
LOC: JER 11:30 → JERBED 14:33 → J7W 20:24
PROVIDERS: ADMIT Internal Medicine; ATTEND Internal Medicine
DX: K31.84 Gastroparesis (principal); I50.32 Chronic diastolic (congestive) heart failure; I11.0 Hypertensive heart disease with heart failure; I25.10 Atherosclerotic heart disease of native coronary artery without angina pectoris; J44.9 Chronic obstructive pulmonary disease, unspecified; E86.0 Dehydration; T36.4X5A Adverse effect of tetracyclines, initial encounter; Z95.5 Presence of coronary angioplasty implant and graft; Z90.710 Acquired absence of both cervix and uterus; R26.9 Unspecified abnormalities of gait and mobility; R63.4 Abnormal weight loss; Z68.28 Body mass index [BMI] 28.0-28.9, adult; E89.0 Postprocedural hypothyroidism; I25.2 Old myocardial infarction; K44.9 Diaphragmatic hernia without obstruction or gangrene; F41.8 Other specified anxiety disorders; E87.6 Hypokalemia; K59.00 Constipation, unspecified; M81.0 Age-related osteoporosis without current pathological fracture
CPT/HCPCS: 36415; 74176-TC; 80048; 80053; 81003; 82150; 82550; 83690; 83735; 84100; 84484; 85025; 90688; 97116-GP; 97161-GP; 99283-25; G0008; J7030

== ENCOUNTER 2019-11-14 10:02 | Day surgery (SDC) | payer OTHER ==
[2019-11-14 10:42] VITALS: BP 142/51; PULSE 56; TEMP 98
[2019-11-14] MEDS ORDERED: FERRIC CARBOXYMALTOSE 750 MG in SODIUM CHLORIDE 250 ML IVPB ONE (11:00)
== END 2019-11-14 12:15 | disposition home or self-care (01) ==
LOC: JINFUSION 10:02 → J7W 10:03 → JINFUSION 10:03 → J7W 10:11 → JINFUSION 12:15 → JASU-ENDO 11-21 10:00
PROVIDERS: ATTEND Internal Medicine Gastroenterology
PROC: 3E033GC Introduction of Other Therapeutic Substance into Peripheral Vein, Percutaneous Approach (ICD-10-PCS; principal; 2019-11-14)
DX: D50.9 Iron deficiency anemia, unspecified (principal)
CPT/HCPCS: 96365; J1439

== ENCOUNTER 2019-11-21 09:53 | Day surgery (SDC) | payer OTHER ==
[2019-11-21] MEDS ORDERED: FERRIC CARBOXYMALTOSE 750 MG in SODIUM CHLORIDE 250 ML IVPB ONE (11:00)
[2019-11-21 15:26] VITALS: BP 144/63; PULSE 81; TEMP 97.7
== END 2019-11-21 16:01 | disposition home or self-care (01) ==
LOC: JASU-ENDO 09:53 → JINFUSION 09:53 → J7W 10:01 → JINFUSION 16:01
PROVIDERS: ATTEND Internal Medicine Gastroenterology
DX: D50.9 Iron deficiency anemia, unspecified (principal)
CPT/HCPCS: 96365; J1439

== ENCOUNTER 2020-12-18 15:28 | Inpatient (IN) | payer OTHER ==
[2020-12-18] MEDS ORDERED: ONDANSETRON 4 MG/2 ML VIAL IVPB ONE (16:07)
[2020-12-18] MEDS ORDERED: ONDANSETRON 4 MG/2 ML VIAL ONE (17:14)
[2020-12-18 17:18] LABS: EOS % 4.7 % (0-4.5); HEMOGLOBIN 11.1 GM/dl (10.7-15.3); MEAN PLT VOLUME 8.6 fl (7.5-11.1); RDW 13.8 % (11.6-15.6)
[2020-12-18 17:23] LABS: BASO % 0.7 % (0-2.0); HEMATOCRIT 33.5 % (32.4-45.2); LYMPH % 21.2 % (8-40); MCHC 33.1 g/dl (32.0-36.0); MEAN CELL VOLUME 84.5 fl (80-96); MONO % 10.6 % (3.8-10.2); NEUT % 62.8 % (42.8-82.8); PLATELET COUNT 318 K/MM3 (134-434); RBC 3.96 M/mm3 (3.60-5.2); WHITE BLOOD COUNT 8.9 K/mm3 (4.0-10.8)
[2020-12-18 17:25] LABS: ALBUMIN 3.4 g/dl (3.4-5.0); ALK PHOS 97 U/L (45-117); ANION GAP 7 MMOL/L (8-16); BILIRUBIN,TOTAL 0.3 mg/dl (0.2-1); CALCIUM 9.7 mg/dl (8.5-10); CHLORIDE 106 mmol/L (98-107); CO2 23 mmol/L (21-32); CREATININE 0.8 mg/dl (0.55-1.3); GLUCOSE,RANDOM 94 mg/dl (74-106); POTASSIUM 4.3 mmol/L (3.5-5.1); SGOT/AST 26 U/L (15-37); SGPT/ALT 18 U/L (13-61); SODIUM 136 mmol/L (136-145); TOT PROT 5.5 g/dl (6.4-8.2)
[2020-12-18 18:51] LABS: N-TERMINAL BNP 634.35 pg/ml (5-450)
[2020-12-18] MEDS ORDERED: AZITHROMYCIN IVPB 500 MG in DEXTROSE 5%-WATER - 250 ML IVPB ONE (18:58)
[2020-12-18] MEDS ORDERED: CEFTRIAXONE 1,000 MG in DEXTROSE 5%-WATER - 50 ML IVPB ONE (18:58)
[2020-12-18] MEDS ORDERED: cefTRIAXone SODIUM 1 GM VIAL ONE (19:33)
[2020-12-18] MEDS ORDERED: AZITHROMYCIN 500 MG VIAL IVPB ONE (20:13)
[2020-12-18] MEDS ORDERED: amLODIPine BESYLATE 5 MG TABLET (FP) PO SCH (22:00)
[2020-12-18] MEDS ORDERED: PATIENT'S OWN MEDICATION (NON-FORMULARY) (Fluticasone Propionate [Flovent Diskus] 50 MCG B IH PRN (23:06)
[2020-12-19] MEDS: CARVEDILOL 3.125 MG TABLET (FP) PO SCH ×3 (00:21→21:19)
[2020-12-19] MEDS: LORazepam 0.5 MG TABLET PO PRN (00:21)
[2020-12-19] MEDS: ATORVASTATIN CA 20 MG TABLET (FP) PO SCH ×2 (00:21→21:19)
[2020-12-19 04:06] VITALS: BMI 24.8
[2020-12-19] MEDS ORDERED: LEVOTHYROXINE NA 25 MCG TABLET (FP) ONE (06:10)
[2020-12-19] MEDS ORDERED: LEVOTHYROXINE NA 112 MCG TABLET (FP) ONE (06:10)
[2020-12-19] MEDS: hydrALAZINE HCL 50 MG TABLET (FP) PO SCH ×3 (06:12→21:19)
[2020-12-19] MEDS: LEVOTHYROXINE 112 MCG, LEVOTHYROXINE 25 MCG PO SCH (06:12)
[2020-12-19] MEDS ORDERED: LEVOTHYROXINE SODIUM 137 MCG PO SCH (07:00)
[2020-12-19 08:17] LABS: BASO % 0.7 % (0-2.0); EOS % 5.1 % (0-4.5); HEMATOCRIT 32.4 % (32.4-45.2); HEMOGLOBIN 10.4 GM/dl (10.7-15.3); LYMPH % 20.4 % (8-40); MCH 26.9 pg (25.7-33.7); MCHC 32.1 g/dl (32.0-36.0); MEAN CELL VOLUME 83.9 fl (80-96); MONO % 10.9 % (3.8-10.2); NEUT % 62.9 % (42.8-82.8); PLATELET COUNT 286 K/MM3 (134-434); RBC 3.86 M/mm3 (3.60-5.2); RDW 13.5 % (11.6-15.6)
[2020-12-19 08:32] LABS: ALBUMIN 2.9 g/dl (3.4-5.0); BILIRUBIN,TOTAL 0.3 mg/dl (0.2-1); CALCIUM 9.2 mg/dl (8.5-10); CREATININE 0.8 mg/dl (0.55-1.3); POTASSIUM 3.7 mmol/L (3.5-5.1); TOT PROT 4.9 g/dl (6.4-8.2)
[2020-12-19] MEDS: SERTRALINE HCL 50 MG TABLET (FP) PO SCH (09:30)
[2020-12-19] MEDS: ASPIRIN 81 MG CHEWABLE TABLETS PO SCH (09:30)
[2020-12-19] MEDS: ENOXAPARIN NA (PORCINE) 40 MG/0.4 ML DISP.SYRIN SQ SCH (09:31)
[2020-12-19] MEDS: amLODIPine BESYLATE 5 MG TABLET (FP) PO SCH (09:31)
[2020-12-19] MEDS: PANTOPRAZOLE 40 MG TABLET PO SCH (09:34)
[2020-12-19] MEDS: VALSARTAN 80 MG TABLET PO SCH (09:34)
[2020-12-19] MEDS ORDERED: POTASSIUM CHLORIDE TABS 10 MEQ TABLET.ER (FP) PO SCH (10:00)
[2020-12-19] MEDS ORDERED: FUROSEMIDE 20 MG TABLET (FP) PO SCH (10:00)
[2020-12-19] MEDS ORDERED: FUROSEMIDE 40 MG/4 ML INJECTABLE VIAL IVPUSH ONE (14:30)
[2020-12-19] MEDS: amLODIPine BESYLATE 2.5 MG TABLET (FP) PO SCH (21:19)
[2020-12-19] MEDS: POLYETHYLENE GLYCOL 3350 119 GM BTL PO SCH (21:22)
[2020-12-19] MEDS ORDERED: PT OWN MED DRAWER 7, Y5N ONE (21:29)
[2020-12-19] MEDS: MOMETASONE FUROATE 110 MCG/IH INHALER IH SCH (21:31)
[2020-12-19] MEDS ORDERED: PATIENT'S OWN MEDICATION (NON-FORMULARY) (Mirabegron [Myrbetriq] 25 MG Tab.Er.24h) PO SCH (22:00)
[2020-12-19] MEDS ORDERED: PATIENT'S OWN MEDICATION (NON-FORMULARY) (Omeprazole [Omeprazole] 20 MG Tablet.Dr) PO SCH (22:00)
[2020-12-20] MEDS ORDERED: LEVOTHYROXINE NA 25 MCG TABLET (FP) ONE (05:25)
[2020-12-20] MEDS ORDERED: LEVOTHYROXINE NA 112 MCG TABLET (FP) ONE (05:26)
[2020-12-20] MEDS: hydrALAZINE HCL 50 MG TABLET (FP) PO SCH ×3 (06:02→21:22)
[2020-12-20] MEDS: LEVOTHYROXINE 112 MCG, LEVOTHYROXINE 25 MCG PO SCH (06:02)
[2020-12-20 08:14] LABS: CREATININE 0.8 mg/dl (0.55-1.3); MAGNESIUM 1.8 mg/dL (1.8-2.4); POTASSIUM 3.3 mmol/L (3.5-5.1)
[2020-12-20] MEDS: amLODIPine BESYLATE 5 MG TABLET (FP) PO SCH (09:46)
[2020-12-20] MEDS: SERTRALINE HCL 50 MG TABLET (FP) PO SCH (09:46)
[2020-12-20] MEDS: VALSARTAN 80 MG TABLET PO SCH (09:46)
[2020-12-20] MEDS: PANTOPRAZOLE 40 MG TABLET PO SCH (09:46)
[2020-12-20] MEDS: CARVEDILOL 3.125 MG TABLET (FP) PO SCH ×2 (09:46→21:21)
[2020-12-20] MEDS: ASPIRIN 81 MG CHEWABLE TABLETS PO SCH (09:46)
[2020-12-20] MEDS: MOMETASONE FUROATE 110 MCG/IH INHALER IH SCH (09:47)
[2020-12-20] MEDS: POLYETHYLENE GLYCOL 3350 119 GM BTL PO SCH (09:47)
[2020-12-20] MEDS: ENOXAPARIN NA (PORCINE) 40 MG/0.4 ML DISP.SYRIN SQ SCH (09:47)
[2020-12-20] MEDS ORDERED: FUROSEMIDE 40 MG/4 ML INJECTABLE VIAL IVPUSH SCH ×2 (10:00→14:00)
[2020-12-20] MEDS ORDERED: POTASSIUM CHLORIDE TABS 20 MEQ TABLET.ER (FP) PO ONE (13:15)
[2020-12-20] MEDS ORDERED: FUROSEMIDE 40 MG/4 ML INJECTABLE VIAL IVPUSH ONE (14:00)
[2020-12-20] MEDS: ATORVASTATIN CA 20 MG TABLET (FP) PO SCH (21:21)
[2020-12-20] MEDS: amLODIPine BESYLATE 2.5 MG TABLET (FP) PO SCH (21:22)
[2020-12-20] MEDS: LORazepam 0.5 MG TABLET PO PRN (22:28)
[2020-12-21] MEDS ORDERED: FUROSEMIDE 40 MG/4 ML INJECTABLE VIAL IVPUSH SCH (06:00)
[2020-12-21] MEDS ORDERED: LEVOTHYROXINE NA 25 MCG TABLET (FP) ONE (06:05)
[2020-12-21] MEDS ORDERED: LEVOTHYROXINE NA 112 MCG TABLET (FP) ONE (06:05)
[2020-12-21] MEDS: FUROSEMIDE 40 MG/4 ML INJECTABLE VIAL IVPUSH SCH ×2 (06:08→15:07)
[2020-12-21] MEDS: LEVOTHYROXINE 112 MCG, LEVOTHYROXINE 25 MCG PO SCH (06:08)
[2020-12-21] MEDS: hydrALAZINE HCL 50 MG TABLET (FP) PO SCH ×3 (06:08→21:19)
[2020-12-21] MEDS: amLODIPine BESYLATE 5 MG TABLET (FP) PO SCH (09:30)
[2020-12-21] MEDS: VALSARTAN 80 MG TABLET PO SCH (09:30)
[2020-12-21] MEDS: SERTRALINE HCL 50 MG TABLET (FP) PO SCH (09:30)
[2020-12-21] MEDS: CARVEDILOL 3.125 MG TABLET (FP) PO SCH ×2 (09:31→21:19)
[2020-12-21] MEDS: PANTOPRAZOLE 40 MG TABLET PO SCH (09:31)
[2020-12-21] MEDS: ENOXAPARIN NA (PORCINE) 40 MG/0.4 ML DISP.SYRIN SQ SCH (09:31)
[2020-12-21] MEDS: ASPIRIN 81 MG CHEWABLE TABLETS PO SCH (09:31)
[2020-12-21] MEDS: MOMETASONE FUROATE 110 MCG/IH INHALER IH SCH (09:32)
[2020-12-21 09:40] LABS: BASO % 1.4 % (0-2.0); EOS % 3.3 % (0-4.5); HEMATOCRIT 37.6 % (32.4-45.2); HEMOGLOBIN 12.1 GM/dl (10.7-15.3); LYMPH % 19.3 % (8-40); MCH 26.9 pg (25.7-33.7); MCHC 32.1 g/dl (32.0-36.0); MEAN CELL VOLUME 83.9 fl (80-96); MONO % 13.8 % (3.8-10.2); NEUT % 62.2 % (42.8-82.8); PLATELET COUNT 319 K/MM3 (134-434); RBC 4.49 M/mm3 (3.60-5.2); RDW 13.6 % (11.6-15.6); WHITE BLOOD COUNT 9.4 K/mm3 (4.0-10.8)
[2020-12-21 10:03] LABS: ALBUMIN 3.4 g/dl (3.4-5.0); BILIRUBIN,TOTAL 0.6 mg/dl (0.2-1); CALCIUM 9.5 mg/dl (8.5-10); CREATININE 0.9 mg/dl (0.55-1.3); MAGNESIUM 1.7 mg/dL (1.8-2.4); POTASSIUM 2.9 mmol/L (3.5-5.1); TOT PROT 5.7 g/dl (6.4-8.2)
[2020-12-21] MEDS ORDERED: MAGNESIUM OXIDE 400 MG TABLET (FP) PO ONE (10:10)
[2020-12-21] MEDS: POTASSIUM CHLORIDE TABS 20 MEQ TABLET.ER (FP) PO SCH ×2 (11:05→15:09)
[2020-12-21] MEDS: METOCLOPRAMIDE HCL INJECTION 10 MG/2 ML VIAL IVPUSH SCH ×3 (11:05→21:19)
[2020-12-21] MEDS: POLYETHYLENE GLYCOL 3350 119 GM BTL PO SCH (11:24)
[2020-12-21] MEDS: ATORVASTATIN CA 20 MG TABLET (FP) PO SCH (21:19)
[2020-12-21] MEDS: amLODIPine BESYLATE 2.5 MG TABLET (FP) PO SCH (21:19)
[2020-12-21] MEDS: LORazepam 0.5 MG TABLET PO PRN (21:24)
[2020-12-22] MEDS ORDERED: LEVOTHYROXINE NA 112 MCG TABLET (FP) ONE (04:47)
[2020-12-22] MEDS ORDERED: LEVOTHYROXINE NA 25 MCG TABLET (FP) ONE (04:47)
[2020-12-22] MEDS: METOCLOPRAMIDE HCL INJECTION 10 MG/2 ML VIAL IVPUSH SCH (04:51)
[2020-12-22] MEDS: hydrALAZINE HCL 50 MG TABLET (FP) PO SCH ×3 (06:12→22:09)
[2020-12-22] MEDS: LEVOTHYROXINE 112 MCG, LEVOTHYROXINE 25 MCG PO SCH (06:12)
[2020-12-22] MEDS: FUROSEMIDE 40 MG/4 ML INJECTABLE VIAL IVPUSH SCH ×2 (06:12→16:00)
[2020-12-22 09:23] LABS: BASO % 1.6 % (0-2.0); EOS % 14.2 % (0-4.5); HEMATOCRIT 34.5 % (32.4-45.2); HEMOGLOBIN 11.3 GM/dl (10.7-15.3); MCHC 32.8 g/dl (32.0-36.0); MEAN CELL VOLUME 85.4 fl (80-96); MEAN PLT VOLUME 8.7 fl (7.5-11.1); MONO % 11.7 % (3.8-10.2); NEUT % 49.5 % (42.8-82.8); PLATELET COUNT 275 K/MM3 (134-434); RBC 4.04 M/mm3 (3.60-5.2); RDW 13.8 % (11.6-15.6); WHITE BLOOD COUNT 8.1 K/mm3 (4.0-10.8)
[2020-12-22 09:31] LABS: ALBUMIN 3.3 g/dl (3.4-5.0); BILIRUBIN,TOTAL 0.5 mg/dl (0.2-1); CALCIUM 9.3 mg/dl (8.5-10); CREATININE 0.9 mg/dl (0.55-1.3); MAGNESIUM 1.9 mg/dL (1.8-2.4); POTASSIUM 3.9 mmol/L (3.5-5.1); TOT PROT 5.3 g/dl (6.4-8.2)
[2020-12-22] MEDS: SERTRALINE HCL 50 MG TABLET (FP) PO SCH (10:07)
[2020-12-22] MEDS: ASPIRIN 81 MG CHEWABLE TABLETS PO SCH (10:22)
[2020-12-22] MEDS: MOMETASONE FUROATE 110 MCG/IH INHALER IH SCH (10:22)
[2020-12-22] MEDS: ENOXAPARIN NA (PORCINE) 40 MG/0.4 ML DISP.SYRIN SQ SCH (10:23)
[2020-12-22] MEDS: VALSARTAN 80 MG TABLET PO SCH (10:23)
[2020-12-22] MEDS: CARVEDILOL 3.125 MG TABLET (FP) PO SCH ×2 (10:23→22:09)
[2020-12-22] MEDS: PANTOPRAZOLE 40 MG TABLET PO SCH (10:23)
[2020-12-22] MEDS: amLODIPine BESYLATE 5 MG TABLET (FP) PO SCH (10:23)
[2020-12-22] MEDS: POLYETHYLENE GLYCOL 3350 119 GM BTL PO SCH (10:23)
[2020-12-22] MEDS ORDERED: ONDANSETRON 4 MG/2 ML VIAL IVPUSH PRN (12:45)
[2020-12-22] MEDS: ATORVASTATIN CA 20 MG TABLET (FP) PO SCH (22:09)
[2020-12-22] MEDS: amLODIPine BESYLATE 2.5 MG TABLET (FP) PO SCH (22:09)
[2020-12-22] MEDS ORDERED: LORazepam 0.5 MG TABLET PO PRN (23:04)
[2020-12-23] MEDS ORDERED: LEVOTHYROXINE NA 25 MCG TABLET (FP) ONE (05:50)
[2020-12-23] MEDS ORDERED: LEVOTHYROXINE NA 112 MCG TABLET (FP) ONE (05:50)
[2020-12-23] MEDS: LEVOTHYROXINE 112 MCG, LEVOTHYROXINE 25 MCG PO SCH (06:10)
[2020-12-23] MEDS: hydrALAZINE HCL 50 MG TABLET (FP) PO SCH ×2 (06:11→15:24)
[2020-12-23 08:36] LABS: EOS % 9.9 % (0-4.5); HEMATOCRIT 33.5 % (32.4-45.2); HEMOGLOBIN 11.1 GM/dl (10.7-15.3); LYMPH % 24.9 % (8-40); MCH 27.7 pg (25.7-33.7); MCHC 33.1 g/dl (32.0-36.0); MEAN CELL VOLUME 83.7 fl (80-96); MEAN PLT VOLUME 8.9 fl (7.5-11.1); MONO % 12.3 % (3.8-10.2); NEUT % 51.9 % (42.8-82.8); PLATELET COUNT 257 K/MM3 (134-434); WHITE BLOOD COUNT 7.8 K/mm3 (4.0-10.8)
[2020-12-23 08:39] LABS: ALBUMIN 3.2 g/dl (3.4-5.0); BILIRUBIN,TOTAL 0.6 mg/dl (0.2-1); CALCIUM 9.1 mg/dl (8.5-10); CREATININE 1.1 mg/dl (0.55-1.3); MAGNESIUM 1.9 mg/dL (1.8-2.4); POTASSIUM 3.5 mmol/L (3.5-5.1); TOT PROT 5.4 g/dl (6.4-8.2)
[2020-12-23] MEDS: ENOXAPARIN NA (PORCINE) 40 MG/0.4 ML DISP.SYRIN SQ SCH (09:45)
[2020-12-23] MEDS: SERTRALINE HCL 50 MG TABLET (FP) PO SCH (09:45)
[2020-12-23] MEDS: ASPIRIN 81 MG CHEWABLE TABLETS PO SCH (09:45)
[2020-12-23] MEDS: VALSARTAN 80 MG TABLET PO SCH (09:46)
[2020-12-23] MEDS: amLODIPine BESYLATE 5 MG TABLET (FP) PO SCH (09:46)
[2020-12-23] MEDS: MOMETASONE FUROATE 110 MCG/IH INHALER IH SCH (09:46)
[2020-12-23] MEDS: CARVEDILOL 3.125 MG TABLET (FP) PO SCH (09:46)
[2020-12-23] MEDS: PANTOPRAZOLE 40 MG TABLET PO SCH (09:46)
[2020-12-23] MEDS: POLYETHYLENE GLYCOL 3350 119 GM BTL PO SCH (09:47)
[2020-12-23] MEDS ORDERED: FUROSEMIDE 20 MG TABLET (FP) PO SCH (10:00)
[2020-12-23 14:22] VITALS: BP 109/54; PULSE 61; TEMP 98.5
== END 2020-12-23 16:23 | disposition home or self-care (01) | DRG 293 ==
LOC: FER 15:28 → FM/S 20:33
PROVIDERS: ADMIT Internal Medicine; ATTEND Nurse Practitioner Acute Care
DX: I11.0 Hypertensive heart disease with heart failure (principal); I50.33 Acute on chronic diastolic (congestive) heart failure; J44.9 Chronic obstructive pulmonary disease, unspecified; I25.10 Atherosclerotic heart disease of native coronary artery without angina pectoris; E03.9 Hypothyroidism, unspecified; K21.9 Gastro-esophageal reflux disease without esophagitis; I25.2 Old myocardial infarction; I34.0 Nonrheumatic mitral (valve) insufficiency; K59.09 Other constipation; E83.42 Hypomagnesemia; M54.5 Low back pain; M85.80 Other specified disorders of bone density and structure, unspecified site; E87.6 Hypokalemia; K31.84 Gastroparesis; K57.30 Diverticulosis of large intestine without perforation or abscess without bleeding; G25.81 Restless legs syndrome; Z95.5 Presence of coronary angioplasty implant and graft
CPT/HCPCS: 36415; 71250-TC; 80048; 80053; 82550; 83735; 83880; 84484; 85025; 93005; 93306-TC; 97116-GP; 97162-GP; 99285-25; C9803; U0003

== ENCOUNTER 2021-08-17 17:47 | Inpatient (IN) | payer OTHER ==
[2021-08-17 17:54] VITALS: BMI 25.2
[2021-08-17] MEDS ORDERED: ACETAMINOPHEN 1000 MG/100 ML VIAL IVPB ONE (19:51)
[2021-08-17] MEDS ORDERED: ONDANSETRON 4 MG/2 ML VIAL IVPUSH ONE (19:59)
[2021-08-17] MEDS ORDERED: ACETAMINOPHEN INJECTION 100 ML IVPB ONE (20:01)
[2021-08-17 20:17] LABS: EPI CELLS 7 /uL (0-25.1); HYALINE CASTS 2 /uL (0-3.1); URINE APPEARANCE CLEAR; URINE BACTERIA 83 /uL (0-1359); URINE BILIRUBIN NEGATIVE (NEGATIVE); URINE COLOR YELLOW; URINE GLUCOSE (UA) NEGATIVE (NEGATIVE); URINE KETONE NEGATIVE (NEGATIVE); URINE LEUK ESTERASE 2+ (NEGATIVE); URINE NITRITE NEGATIVE (NEGATIVE); URINE PROTEIN NEGATIVE (NEGATIVE); URINE RBC 4 /uL (0-23.9); URINE UROBILINOGEN 0.2 mg/dL (0.2-1.0); URINE WBC 54 /uL (0-25.8)
[2021-08-17 20:20] LABS: BASO % 0.6 % (0-2.0); EOS % 0.8 % (0-4.5); HEMATOCRIT 37.9 % (32.4-45.2); HEMOGLOBIN 12.5 GM/dL (10.7-15.3); LYMPH % 9.5 % (8-40); MCH 27.8 pg (25.7-33.7); MCHC 32.9 g/dl (32.0-36.0); MEAN CELL VOLUME 84.6 fl (80-96); MEAN PLT VOLUME 10.1 fl (7.5-11.1); MONO % 6.3 % (3.8-10.2); NEUT % 82.8 % (42.8-82.8); PLATELET COUNT 252 10^3/uL (134-434); RBC 4.48 M/mm3 (3.60-5.2); RDW 14.5 % (11.6-15.6); WHITE BLOOD COUNT 15.6 K/mm3 (4.0-10.0)
[2021-08-17] MEDS ORDERED: ONDANSETRON 4 MG/2 ML VIAL ONE (20:21)
[2021-08-17 20:25] LABS: PROTHROMBIN TIME (PATIENT) 11.7 SEC (9.7-13.0)
[2021-08-17 20:28] LABS: ACTIVATED PTT 29.7 SECONDS (25.2-36.5)
[2021-08-17 20:44] LABS: CHLORIDE 109 mmol/L (98-107); SODIUM 142 mmol/L (136-145)
[2021-08-17 20:47] LABS: ALBUMIN 3.7 g/dl (3.4-5.0); CALCIUM 9.6 mg/dL (8.5-10.1); LIPASE 130 U/L (73-393)
[2021-08-17 20:48] LABS: ANION GAP 8 MMOL/L (8-16); BLOOD UREA NITROGEN 33.3 mg/dL (7-18); CO2 25 mmol/L (21-32); GLUCOSE,RANDOM 100 mg/dL (74-106)
[2021-08-17 20:50] LABS: SGOT/AST 36 U/L (15-37); SGPT/ALT 25 U/L (13-61)
[2021-08-17 20:52] LABS: BILIRUBIN,TOTAL 0.4 mg/dL (0.2-1); TOT PROT 6.6 g/dl (6.4-8.2)
[2021-08-17 20:53] LABS: ALK PHOS 129 U/L (45-117)
[2021-08-18] MEDS ORDERED: amLODIPine BESYLATE 2.5 MG TABLET (FP) PO ONE (00:20)
[2021-08-18] MEDS ORDERED: SODIUM CHLORIDE 1,000 ML IV SCH (00:30)
[2021-08-18] MEDS ORDERED: LORazepam 0.5 MG TABLET PO ONE (01:05)
[2021-08-18] MEDS ORDERED: LORazepam 2 MG TABLET PO ONE (01:05)
[2021-08-18] MEDS ORDERED: LORazepam 0.5 MG TABLET ONE (01:11)
[2021-08-18] MEDS: CEFTRIAXONE 1 GM in DEXTROSE 5%-WATER - 50 ML IVPB SCH (02:35)
[2021-08-18] MEDS: METOCLOPRAMIDE HCL INJECTION 10 MG/2 ML VIAL IVPUSH SCH ×4 (04:02→17:34)
[2021-08-18 06:28] LABS: HEMATOCRIT 32.2 % (32.4-45.2); HEMOGLOBIN 10.7 GM/dL (10.7-15.3); MCH 28.2 pg (25.7-33.7); MCHC 33.1 g/dl (32.0-36.0); MEAN CELL VOLUME 85.1 fl (80-96); MEAN PLT VOLUME 9.4 fl (7.5-11.1); PLATELET COUNT 196 10^3/uL (134-434); RBC 3.78 M/mm3 (3.60-5.2); RDW 14.4 % (11.6-15.6); WHITE BLOOD COUNT 9.3 K/mm3 (4.0-10.0)
[2021-08-18 06:58] LABS: CALCIUM 8.9 mg/dL (8.5-10.1)
[2021-08-18 06:59] LABS: BLOOD UREA NITROGEN 30.2 mg/dL (7-18); MAGNESIUM 2.1 mg/dL (1.8-2.4)
[2021-08-18] MEDS ORDERED: LEVOTHYROXINE SODIUM 137 MCG PO SCH (07:00)
[2021-08-18 07:02] LABS: CREATININE 0.9 mg/dL (0.55-1.3); PHOSPHOROUS 2.6 mg/dL (2.5-4.9)
[2021-08-18 07:03] LABS: BILIRUBIN,TOTAL 0.4 mg/dL (0.2-1); TOT PROT 5.4 g/dl (6.4-8.2)
[2021-08-18] MEDS ORDERED: CARVEDILOL 3.125 MG TABLET (FP) PO SCH (10:00)
[2021-08-18] MEDS ORDERED: SERTRALINE HCL 50 MG TABLET (FP) PO SCH (10:00)
[2021-08-18] MEDS: PANTOPRAZOLE 40 MG TABLET PO SCH (11:12)
[2021-08-18] MEDS ORDERED: cefTRIAXone SODIUM 1 GM VIAL ONE (11:21)
[2021-08-18] MEDS ORDERED: DEXTROSE 5%-WATER - 50 ML IVPB ONE (11:21)
[2021-08-18] MEDS: ENOXAPARIN NA (PORCINE) 40 MG/0.4 ML DISP.SYRIN SQ SCH (11:32)
[2021-08-18] MEDS: CHOLECALCIFEROL (VIT D3) 1,000 UNIT (25 MCG) TABLET PO SCH (11:33)
[2021-08-18] MEDS: VALSARTAN 80 MG TABLET PO SCH ×2 (11:33→23:11)
[2021-08-18] MEDS: POLYETHYLENE GLYCOL (HEALTHYLAX) 3350 17 GM PACKET PO SCH (11:33)
[2021-08-18] MEDS: CARVEDILOL 6.25 MG TABLET (FP) PO SCH ×2 (11:34→23:11)
[2021-08-18] MEDS: FUROSEMIDE 20 MG TABLET (FP) PO SCH (11:34)
[2021-08-18] MEDS: ASPIRIN 81 MG CHEWABLE TABLETS PO SCH (11:34)
[2021-08-18] MEDS: hydrALAZINE HCL 50 MG TABLET (FP) PO SCH ×3 (15:12→23:11)
[2021-08-18] MEDS: LEVOTHYROXINE 112 MCG, LEVOTHYROXINE 25 MCG PO SCH (18:20)
[2021-08-18] MEDS ORDERED: SENNOSIDES 8.6MG TABLET (FP) PO SCH (22:00)
[2021-08-18] MEDS: ATORVASTATIN CA 20 MG TABLET (FP) PO SCH (23:11)
[2021-08-18] MEDS ORDERED: MELATONIN 5 MG TABLETS PO ONE (23:32)
[2021-08-19] MEDS: METOCLOPRAMIDE HCL INJECTION 10 MG/2 ML VIAL IVPUSH SCH ×3 (02:24→18:11)
[2021-08-19] MEDS ORDERED: LEVOTHYROXINE NA 112 MCG TABLET (FP) ONE (06:17)
[2021-08-19] MEDS ORDERED: LEVOTHYROXINE NA 25 MCG TABLET (FP) ONE (06:18)
[2021-08-19] MEDS: LEVOTHYROXINE 112 MCG, LEVOTHYROXINE 25 MCG PO SCH (06:39)
[2021-08-19] MEDS: hydrALAZINE HCL 50 MG TABLET (FP) PO SCH ×3 (06:40→21:19)
[2021-08-19] MEDS ORDERED: ACETAMINOPHEN 325 MG TABLET (FP) PO ONE (08:19)
[2021-08-19] MEDS ORDERED: cefTRIAXone SODIUM 1 GM VIAL ONE (09:04)
[2021-08-19] MEDS ORDERED: DEXTROSE 5%-WATER - 50 ML IVPB ONE (09:04)
[2021-08-19] MEDS: CEFTRIAXONE 1 GM in DEXTROSE 5%-WATER - 50 ML IVPB SCH (09:34)
[2021-08-19] MEDS: FUROSEMIDE 20 MG TABLET (FP) PO SCH (09:46)
[2021-08-19] MEDS: POLYETHYLENE GLYCOL (HEALTHYLAX) 3350 17 GM PACKET PO SCH ×2 (09:46→09:59)
[2021-08-19] MEDS: VALSARTAN 80 MG TABLET PO SCH ×2 (09:46→21:19)
[2021-08-19] MEDS: LACTOBACILLUS ACIDOPHILUS 1 TABLET PO SCH (09:46)
[2021-08-19] MEDS: CARVEDILOL 6.25 MG TABLET (FP) PO SCH ×2 (09:48→21:19)
[2021-08-19] MEDS: PANTOPRAZOLE 40 MG TABLET PO SCH (09:49)
[2021-08-19] MEDS: CHOLECALCIFEROL (VIT D3) 1,000 UNIT (25 MCG) TABLET PO SCH (09:50)
[2021-08-19] MEDS: ASPIRIN 81 MG CHEWABLE TABLETS PO SCH (09:51)
[2021-08-19] MEDS: ENOXAPARIN NA (PORCINE) 40 MG/0.4 ML DISP.SYRIN SQ SCH (09:51)
[2021-08-19 11:10] LABS: BASO % 0.6 % (0-2.0); EOS % 2.4 % (0-4.5); HEMATOCRIT 32.6 % (32.4-45.2); HEMOGLOBIN 10.8 GM/dL (10.7-15.3); LYMPH % 24.3 % (8-40); MCH 28.2 pg (25.7-33.7); MCHC 33.2 g/dl (32.0-36.0); MEAN CELL VOLUME 84.9 fl (80-96); MEAN PLT VOLUME 9.4 fl (7.5-11.1); MONO % 10.8 % (3.8-10.2); NEUT % 61.9 % (42.8-82.8); PLATELET COUNT 197 10^3/uL (134-434); RBC 3.85 M/mm3 (3.60-5.2); RDW 14.5 % (11.6-15.6); WHITE BLOOD COUNT 6.6 K/mm3 (4.0-10.0)
[2021-08-19 11:34] LABS: ALBUMIN 2.9 g/dl (3.4-5.0); CALCIUM 9.1 mg/dL (8.5-10.1)
[2021-08-19 11:35] LABS: BLOOD UREA NITROGEN 19.6 mg/dL (7-18)
[2021-08-19 11:38] LABS: CREATININE 0.8 mg/dL (0.55-1.3); PHOSPHOROUS 1.9 mg/dL (2.5-4.9)
[2021-08-19 11:39] LABS: BILIRUBIN,TOTAL 0.4 mg/dL (0.2-1); TOT PROT 5.5 g/dl (6.4-8.2)
[2021-08-19] MEDS: KCL 10 MEQ IVPB 10 MEQ/100 ML INFUS.BAG IVPB SCH ×2 (13:31→16:11)
[2021-08-19] MEDS ORDERED: POTASSIUM CHLORIDE TABS 20 MEQ TABLET.ER (FP) PO ONE ×2 (14:15→15:31)
[2021-08-19] MEDS: LORazepam 0.5 MG TABLET PO PRN (20:18)
[2021-08-19] MEDS: ATORVASTATIN CA 20 MG TABLET (FP) PO SCH (21:19)
[2021-08-20] MEDS: METOCLOPRAMIDE HCL INJECTION 10 MG/2 ML VIAL IVPUSH SCH (01:41)
[2021-08-20] MEDS ORDERED: LEVOTHYROXINE NA 112 MCG TABLET (FP) ONE (05:35)
[2021-08-20] MEDS ORDERED: LEVOTHYROXINE NA 25 MCG TABLET (FP) ONE (05:35)
[2021-08-20] MEDS: hydrALAZINE HCL 50 MG TABLET (FP) PO SCH ×4 (06:05→20:59)
[2021-08-20] MEDS: LEVOTHYROXINE 112 MCG, LEVOTHYROXINE 25 MCG PO SCH (06:05)
[2021-08-20] MEDS ORDERED: ACETAMINOPHEN 500 MG TABLET (FP) PO PRN (06:52)
[2021-08-20 08:35] LABS: BASO % 0.8 % (0-2.0); EOS % 2.9 % (0-4.5); HEMATOCRIT 31.6 % (32.4-45.2); HEMOGLOBIN 10.5 GM/dL (10.7-15.3); LYMPH % 21.3 % (8-40); MCH 28.3 pg (25.7-33.7); MCHC 33.4 g/dl (32.0-36.0); MEAN CELL VOLUME 84.8 fl (80-96); MEAN PLT VOLUME 8.9 fl (7.5-11.1); MONO % 11.3 % (3.8-10.2); NEUT % 63.7 % (42.8-82.8); PLATELET COUNT 186 10^3/uL (134-434); RBC 3.72 M/mm3 (3.60-5.2); RDW 14.4 % (11.6-15.6); WHITE BLOOD COUNT 5.7 K/mm3 (4.0-10.0)
[2021-08-20] MEDS ORDERED: METOCLOPRAMIDE HCL INJECTION 10 MG/2 ML VIAL IVPUSH PRN ×2 (09:23→09:25)
[2021-08-20 09:29] LABS: CALCIUM 8.8 mg/dL (8.5-10.1)
[2021-08-20 09:32] LABS: CREATININE 0.8 mg/dL (0.55-1.3); PHOSPHOROUS 1.5 mg/dL (2.5-4.9)
[2021-08-20] MEDS ORDERED: POTASSIUM PHOSPHATE 30 MM in SODIUM CHLORIDE 500 ML IVPB ONE (10:15)
[2021-08-20] MEDS: CHOLECALCIFEROL (VIT D3) 1,000 UNIT (25 MCG) TABLET PO SCH (10:20)
[2021-08-20] MEDS: NAPH,MB-DB/K PH,MBDB POWDER PACKET PO SCH ×2 (10:20→21:00)
[2021-08-20] MEDS: LACTOBACILLUS ACIDOPHILUS 1 TABLET PO SCH (10:21)
[2021-08-20] MEDS: VALSARTAN 80 MG TABLET PO SCH ×2 (10:21→21:00)
[2021-08-20] MEDS: CARVEDILOL 6.25 MG TABLET (FP) PO SCH ×2 (10:21→20:59)
[2021-08-20] MEDS: ENOXAPARIN NA (PORCINE) 40 MG/0.4 ML DISP.SYRIN SQ SCH (10:21)
[2021-08-20] MEDS: PANTOPRAZOLE 40 MG TABLET PO SCH (10:21)
[2021-08-20] MEDS: ASPIRIN 81 MG CHEWABLE TABLETS PO SCH (10:21)
[2021-08-20] MEDS: FUROSEMIDE 20 MG TABLET (FP) PO SCH (10:21)
[2021-08-20] MEDS ORDERED: DEXTROSE 5%-WATER - 50 ML IVPB ONE (10:24)
[2021-08-20] MEDS ORDERED: cefTRIAXone SODIUM 1 GM VIAL ONE (10:24)
[2021-08-20] MEDS: CEFTRIAXONE 1 GM in DEXTROSE 5%-WATER - 50 ML IVPB SCH (10:25)
[2021-08-20] MEDS: metroNIDAZOLE 250 MG TABLET PO SCH (20:59)
[2021-08-20] MEDS: LORazepam 0.5 MG TABLET PO PRN (20:59)
[2021-08-20] MEDS: ATORVASTATIN CA 20 MG TABLET (FP) PO SCH (20:59)
[2021-08-20 23:51] LABS: BLOOD UREA NITROGEN 17.5 mg/dL (7-18); CALCIUM 8.3 mg/dL (8.5-10.1)
[2021-08-20 23:55] LABS: CREATININE 0.8 mg/dL (0.55-1.3); PHOSPHOROUS 4.1 mg/dL (2.5-4.9)
[2021-08-21] MEDS ORDERED: LEVOTHYROXINE NA 112 MCG TABLET (FP) ONE (05:39)
[2021-08-21] MEDS ORDERED: LEVOTHYROXINE NA 25 MCG TABLET (FP) ONE (05:40)
[2021-08-21] MEDS: LEVOTHYROXINE 112 MCG, LEVOTHYROXINE 25 MCG PO SCH (06:02)
[2021-08-21] MEDS: hydrALAZINE HCL 50 MG TABLET (FP) PO SCH ×2 (06:02→13:51)
[2021-08-21] MEDS: metroNIDAZOLE 250 MG TABLET PO SCH ×2 (06:02→13:51)
[2021-08-21 08:44] LABS: HEMATOCRIT 31.1 % (32.4-45.2); HEMOGLOBIN 10.1 GM/dL (10.7-15.3); MCH 27.2 pg (25.7-33.7); MCHC 32.5 g/dl (32.0-36.0); MEAN CELL VOLUME 83.6 fl (80-96); PLATELET COUNT 172 10^3/uL (134-434); RBC 3.72 M/mm3 (3.60-5.2); RDW 14.2 % (11.6-15.6); WHITE BLOOD COUNT 5.9 K/mm3 (4.0-10.0)
[2021-08-21 09:10] LABS: ALBUMIN 2.7 g/dl (3.4-5.0); BLOOD UREA NITROGEN 15.4 mg/dL (7-18); CALCIUM 8.5 mg/dL (8.5-10.1)
[2021-08-21 09:13] LABS: CREATININE 0.7 mg/dL (0.55-1.3)
[2021-08-21 09:14] LABS: PHOSPHOROUS 2.7 mg/dL (2.5-4.9)
[2021-08-21 09:15] LABS: BILIRUBIN,TOTAL 0.3 mg/dL (0.2-1); TOT PROT 4.9 g/dl (6.4-8.2)
[2021-08-21] MEDS ORDERED: CEFUROXIME AXETIL 500 MG TABLET PO SCH (10:00)
[2021-08-21] MEDS: CHOLECALCIFEROL (VIT D3) 1,000 UNIT (25 MCG) TABLET PO SCH (11:13)
[2021-08-21] MEDS: NAPH,MB-DB/K PH,MBDB POWDER PACKET PO SCH (11:14)
[2021-08-21] MEDS: PANTOPRAZOLE 40 MG TABLET PO SCH (11:14)
[2021-08-21] MEDS: VALSARTAN 80 MG TABLET PO SCH (11:14)
[2021-08-21] MEDS: ENOXAPARIN NA (PORCINE) 40 MG/0.4 ML DISP.SYRIN SQ SCH (11:14)
[2021-08-21] MEDS: LACTOBACILLUS ACIDOPHILUS 1 TABLET PO SCH (11:14)
[2021-08-21] MEDS: ASPIRIN 81 MG CHEWABLE TABLETS PO SCH (11:14)
[2021-08-21] MEDS: CARVEDILOL 6.25 MG TABLET (FP) PO SCH (11:14)
[2021-08-21] MEDS: FUROSEMIDE 20 MG TABLET (FP) PO SCH (11:14)
[2021-08-21 15:16] VITALS: BP 133/51; PULSE 59; TEMP 98.5
== END 2021-08-21 17:09 | disposition home health service (06) | DRG 392 ==
LOC: JER 17:47 → JERBED 08-18 00:04 → J5S 08-18 08:04
PROVIDERS: ATTEND Internal Medicine
DX: K57.92 Diverticulitis of intestine, part unspecified, without perforation or abscess without bleeding (principal); I50.32 Chronic diastolic (congestive) heart failure; I25.10 Atherosclerotic heart disease of native coronary artery without angina pectoris; I11.0 Hypertensive heart disease with heart failure; J44.9 Chronic obstructive pulmonary disease, unspecified; K21.9 Gastro-esophageal reflux disease without esophagitis; E03.9 Hypothyroidism, unspecified; K59.00 Constipation, unspecified; E87.6 Hypokalemia; E83.39 Other disorders of phosphorus metabolism
CPT/HCPCS: 36415; 71045-TC-FY; 74176-TC; 80048; 80053; 81003; 82150; 82550; 83036; 83605; 83690; 83735; 84100; 84484; 85025; 85027; 85610; 85730; 86140; 86850; 86900; 86901; 87040; 87045; 87046; 87086; 87177; 87205; 87209; 87324; 93005; 93010; 99285-25; C9803; J0131; U0003; U0005

== ENCOUNTER 2021-12-11 18:35 | Emergency (ER) | payer OTHER ==
[2021-12-11 19:00] VITALS: BP 141/44; PULSE 63; TEMP 97.6; BMI 24.8
[2021-12-11] MEDS ORDERED: ONDANSETRON 4 MG/2 ML VIAL IVPUSH ONE (19:56)
[2021-12-11] MEDS ORDERED: ONDANSETRON 4 MG/2 ML VIAL ONE (20:01)
[2021-12-11 20:33] LABS: ALBUMIN 3.4 g/dl (3.4-5.0); BILIRUBIN,TOTAL 0.5 mg/dl (0.2-1); CALCIUM 9.8 mg/dl (8.5-10); TOT PROT 5.5 g/dl (6.4-8.2)
[2021-12-11 22:27] LABS: BASO % 0.4 % (0-2.0); EOS % 3.2 % (0-4.5); HEMATOCRIT 33.5 % (32.4-45.2); HEMOGLOBIN 11.2 GM/dL (10.7-15.3); LYMPH % 29.9 % (8-40); MCH 27.8 pg (25.7-33.7); MCHC 33.5 g/dl (32.0-36.0); MEAN CELL VOLUME 82.9 fl (80-96); MEAN PLT VOLUME 9.3 fl (7.5-11.1); MONO % 13.5 % (3.8-10.2); PLATELET COUNT 231 10^3/uL (134-434); RBC 4.04 M/mm3 (3.60-5.2); RDW 13.9 % (11.6-15.6); WHITE BLOOD COUNT 7.9 K/mm3 (4.0-10.0)
[2021-12-11] MEDS ORDERED: POTASSIUM CHLORIDE TABS 20 MEQ TABLET.ER (FP) PO ONE ×2 (22:39→22:43)
== END 2021-12-11 22:47 | disposition home or self-care (01) ==
LOC: FER 18:35
PROC: 3E033GC Introduction of Other Therapeutic Substance into Peripheral Vein, Percutaneous Approach (ICD-10-PCS; principal; 2021-12-11)
DX: R11.10 Vomiting, unspecified (principal)
CPT/HCPCS: 36415; 80053; 85025; 99284-25

== ENCOUNTER 2022-08-23 11:37 | Emergency (ER) | payer OTHER ==
[2022-08-23] MEDS ORDERED: ONDANSETRON 4 MG/2 ML VIAL IVPUSH ONE (11:59)
[2022-08-23 12:02] VITALS: TEMP 99; BMI 24.2
[2022-08-23] MEDS ORDERED: FAMOTIDINE 20 MG/50 ML IVPB 20 MG/50 ML MG IVPB ONE ×2 (12:27→12:30)
[2022-08-23] MEDS ORDERED: ONDANSETRON 4 MG/2 ML VIAL ONE (12:30)
[2022-08-23] MEDS ORDERED: LACTATED RINGERS SOLUTION 1,000 ML/1,000 ML INFUS.BAG IV SCH (12:30)
[2022-08-23 12:36] LABS: HEMATOCRIT 34.1 % (32.4-45.2); HEMOGLOBIN 11.3 G/dL (10.7-15.3); MCHC 33.3 g/dl (32.0-36.0); MEAN CELL VOLUME 84.2 fl (80-96); MEAN PLT VOLUME 9.2 fl (7.5-11.1); PLATELET COUNT 233.4 10^3/uL (134-434); RBC 4.05 10^6/uL (3.60-5.2); RDW 15.8 % (11.6-15.6); WHITE BLOOD COUNT 7.7 10^3/uL (4.0-10.8)
[2022-08-23 12:41] LABS: INR 1.08 (0.83-1.09); PROTHROMBIN TIME (PATIENT) 12.4 SEC (9.7-13.0)
[2022-08-23 12:44] LABS: ACTIVATED PTT 29.3 SECONDS (25.2-36.5)
[2022-08-23 13:01] LABS: PLATELET ESTIMATE ADEQUATE
[2022-08-23 13:03] LABS: ALBUMIN 3.3 g/dl (3.4-5.0); BILIRUBIN,TOTAL 0.8 mg/dl (0.2-1); CALCIUM 9.1 mg/dl (8.5-10); TOT PROT 5.5 g/dl (6.4-8.2)
[2022-08-23 15:14] VITALS: BP 145/55; PULSE 63; RESP 16
== END 2022-08-23 15:15 | disposition home or self-care (01) ==
LOC: FER 11:37
PROC: 3E033NZ Introduction of Analgesics, Hypnotics, Sedatives into Peripheral Vein, Percutaneous Approach (ICD-10-PCS; principal; 2022-08-23)
PROC: 3E033GC Introduction of Other Therapeutic Substance into Peripheral Vein, Percutaneous Approach (ICD-10-PCS; 2022-08-23)
DX: R11.2 Nausea with vomiting, unspecified (principal)
CPT/HCPCS: 0241U-QW; 36415; 71045-TC-FY; 80053; 81003; 83690; 84484; 85025; 85610; 85730; 87086; 93005; 99284-25

== ENCOUNTER 2023-04-24 18:08 | Observation (INO) | payer OTHER ==
[2023-04-24] MEDS ORDERED: SODIUM CHLORIDE 0.9% 500 ML INFUS.BAG IV ONE (19:05)
[2023-04-24] MEDS ORDERED: ONDANSETRON 4 MG/2 ML VIAL IVPUSH ONE ×2 (19:05→20:39)
[2023-04-24] MEDS ORDERED: FAMOTIDINE 20 MG/50 ML IVPB 20 MG/50 ML MG IVPB ONE ×2 (19:05→19:42)
[2023-04-24] MEDS ORDERED: MAG HYDROX/AL HYDROX/SIMETH -MYLANTA- ORAL SUSPENSION PO ONE (19:05)
[2023-04-24 19:35] LABS: HEMATOCRIT 35.1 % (32.4-45.2); HEMOGLOBIN 11.7 G/dL (10.7-15.3); MCH 28.4 pg (25.7-33.7); MCHC 33.3 g/dl (32.0-36.0); MEAN CELL VOLUME 85.2 fl (80-96); MEAN PLT VOLUME 8.9 fl (7.5-11.1); PLATELET COUNT 220.6 10^3/uL (134-434); RBC 4.12 10^6/uL (3.60-5.2); RDW 15.4 % (11.6-15.6); WHITE BLOOD COUNT 7.4 10^3/uL (4.0-10.8)
[2023-04-24] MEDS ORDERED: ONDANSETRON 4 MG/2 ML VIAL ONE (19:42)
[2023-04-24 19:43] LABS: ALBUMIN 3.5 g/dl (3.4-5.0); BILIRUBIN,TOTAL 0.4 mg/dl (0.2-1); BLOOD UREA NITROGEN 24.5 mg/dl (7-18); CALCIUM 9.2 mg/dl (8.5-10.1); CREATININE 1.1 mg/dl (0.6-1.3); POTASSIUM 3.6 mmol/L (3.5-5.1); SGOT/AST 25.8 U/L (15-37); SGPT/ALT 14.9 U/L (7-52); TOT PROT 5.3 g/dl (6.4-8.2)
[2023-04-24] MEDS ORDERED: MAG HYDROX/AL HYDROX/SIMETH 30 ML UNIT-DOSE CUP ONE (19:43)
[2023-04-24] MEDS ORDERED: ACETAMINOPHEN 1000 MG/100 ML BAG IVPB ONE (20:39)
[2023-04-24] MEDS ORDERED: METOCLOPRAMIDE HCL INJECTION 10 MG/2 ML VIAL IVPB ONE (20:41)
[2023-04-24] MEDS ORDERED: METOCLOPRAMIDE HCL INJECTION 10 MG/2 ML VIAL ONE (20:46)
[2023-04-24] MEDS ORDERED: ACETAMINOPHEN INJECTION 100 ML IVPB ONE (20:46)
[2023-04-24] MEDS ORDERED: LORazepam 2 MG/ML SDV VIAL IVPUSH ONE (21:25)
[2023-04-25 01:12] VITALS: BMI 26.2
[2023-04-25] MEDS: VALSARTAN 80 MG TABLET PO SCH ×3 (01:41→21:09)
[2023-04-25] MEDS ORDERED: ACETAMINOPHEN 1000 MG/100 ML BAG IVPB PRN (02:21)
[2023-04-25] MEDS ORDERED: METOCLOPRAMIDE HCL INJECTION 10 MG/2 ML VIAL IVPB PRN (02:30)
[2023-04-25] MEDS: hydrALAZINE HCL 25 MG TABLET (FP) PO SCH ×3 (06:35→21:09)
[2023-04-25] MEDS: LEVOTHYROXINE NA 125 MCG TABLET (FP) PO SCH (06:36)
[2023-04-25] MEDS: busPIRone HCL 5 MG TABLET PO SCH ×3 (06:40→21:33)
[2023-04-25 09:04] LABS: HEMATOCRIT 35.4 % (32.4-45.2); HEMOGLOBIN 11.4 G/dL (10.7-15.3); MCH 27.7 pg (25.7-33.7); MCHC 32.3 g/dl (32.0-36.0); MEAN CELL VOLUME 85.8 fl (80-96); MEAN PLT VOLUME 9.2 fl (7.5-11.1); PLATELET COUNT 221.8 10^3/uL (134-434); RBC 4.13 10^6/uL (3.60-5.2); RDW 15.9 % (11.6-15.6); WHITE BLOOD COUNT 6.1 10^3/uL (4.0-10.8)
[2023-04-25] MEDS ORDERED: PATIENT'S OWN MEDICATION (NON-FORMULARY) (Mirabegron [Myrbetriq] 50 MG Tab.Er.24h) PO SCH (10:00)
[2023-04-25] MEDS ORDERED: amLODIPine BESYLATE 5 MG TABLET (FP) PO SCH (10:00)
[2023-04-25] MEDS: FLUoxetine HCL 20 MG CAPSULE PO SCH (10:45)
[2023-04-25] MEDS: ASPIRIN COATED 81 MG TABLET.EC PO SCH (10:52)
[2023-04-25] MEDS: amLODIPine BESYLATE 10 MG TABLET (FP) PO SCH (10:52)
[2023-04-25] MEDS: CHOLECALCIFEROL (VIT D3) 1,000 UNIT (25 MCG) TABLET PO SCH (10:52)
[2023-04-25] MEDS: FUROSEMIDE 20 MG TABLET (FP) PO SCH (10:53)
[2023-04-25] MEDS: PANTOPRAZOLE 20 MG TABLET PO SCH ×2 (10:54→21:08)
[2023-04-25] MEDS: CYANOCOBALAMIN 1,000 MCG TABLET (FP) PO SCH (10:54)
[2023-04-25] MEDS: FLUTICASONE PROP 0.05% 16 GM NASAL SPRAY NS SCH (10:55)
[2023-04-25 10:56] LABS: BLOOD UREA NITROGEN 21.4 mg/dl (7-18); CALCIUM 8.9 mg/dl (8.5-10.1); CREATININE 1.1 mg/dl (0.6-1.3); MAGNESIUM 1.9 mg/dL (1.8-2.4); PHOSPHOROUS 3.05 (2.5-4.9); POTASSIUM 3.9 mmol/L (3.5-5.1)
[2023-04-25] MEDS: POLYETHYLENE GLYCOL (HEALTHYLAX) 3350 17 GM PACKET PO SCH (11:55)
[2023-04-25] MEDS ORDERED: ATORVASTATIN CA 20 MG TABLET (FP) PO SCH (22:00)
[2023-04-25] MEDS ORDERED: LORazepam 0.5 MG TABLET PO SCH (22:00)
[2023-04-26] MEDS ORDERED: ACETAMINOPHEN 325 MG TABLET (FP) PO PRN (02:22)
[2023-04-26] MEDS: busPIRone HCL 5 MG TABLET PO SCH (06:14)
[2023-04-26] MEDS: hydrALAZINE HCL 25 MG TABLET (FP) PO SCH (06:15)
[2023-04-26] MEDS: LEVOTHYROXINE NA 125 MCG TABLET (FP) PO SCH (06:15)
[2023-04-26 09:22] VITALS: BP 126/48; PULSE 62; RESP 18; TEMP 97.6
[2023-04-26] MEDS: CYANOCOBALAMIN 1,000 MCG TABLET (FP) PO SCH (09:27)
[2023-04-26] MEDS: FLUoxetine HCL 20 MG CAPSULE PO SCH (09:27)
[2023-04-26] MEDS: PANTOPRAZOLE 20 MG TABLET PO SCH (09:29)
[2023-04-26] MEDS: ASPIRIN COATED 81 MG TABLET.EC PO SCH (09:29)
[2023-04-26] MEDS: VALSARTAN 80 MG TABLET PO SCH (09:30)
[2023-04-26] MEDS: CHOLECALCIFEROL (VIT D3) 1,000 UNIT (25 MCG) TABLET PO SCH (09:30)
[2023-04-26] MEDS: POLYETHYLENE GLYCOL (HEALTHYLAX) 3350 17 GM PACKET PO SCH (09:31)
[2023-04-26] MEDS: FUROSEMIDE 20 MG TABLET (FP) PO SCH (09:31)
[2023-04-26] MEDS: amLODIPine BESYLATE 10 MG TABLET (FP) PO SCH (09:31)
[2023-04-26] MEDS: FLUTICASONE PROP 0.05% 16 GM NASAL SPRAY NS SCH (09:32)
[2023-04-26] MEDS ORDERED: LEVOTHYROXINE NA 150 MCG TABLET PO SCH (09:45)
[2023-04-26 10:44] LABS: BASO % 0.7 % (0-2.0); EOS % 4.1 % (0-4.5); HEMATOCRIT 34.2 % (32.4-45.2); HEMOGLOBIN 11.1 GM/dL (10.7-15.3); LYMPH % 24.7 % (8-40); MCH 27.2 pg (25.7-33.7); MCHC 32.5 g/dl (32.0-36.0); MEAN CELL VOLUME 83.8 fl (80-96); MEAN PLT VOLUME 9.2 fl (7.5-11.1); MONO % 12.1 % (3.8-10.2); NEUT % 58.4 % (42.8-82.8); PLATELET COUNT 223 10^3/uL (134-434); RBC 4.08 M/mm3 (3.60-5.2); RDW 13.6 % (11.6-15.6); WHITE BLOOD COUNT 6.4 K/mm3 (4.0-10.0)
[2023-04-26 12:27] LABS: BLOOD UREA NITROGEN 19.9 mg/dL (7-18); CALCIUM 8.9 mg/dL (8.5-10.1)
[2023-04-26 12:31] LABS: CREATININE 1.1 mg/dL (0.55-1.3)
[2023-04-26 12:32] LABS: BILIRUBIN,TOTAL 0.4 mg/dL (0.2-1); TOT PROT 5.3 g/dl (6.4-8.2)
== END 2023-04-26 12:30 | disposition home or self-care (01) ==
LOC: FER 18:08 → INTOOBSV 23:59 → FM/S 23:59
PROVIDERS: ADMIT Internal Medicine
PROC: 3E033NZ Introduction of Analgesics, Hypnotics, Sedatives into Peripheral Vein, Percutaneous Approach (ICD-10-PCS; principal; 2023-04-24)
PROC: 3E033GC Introduction of Other Therapeutic Substance into Peripheral Vein, Percutaneous Approach (ICD-10-PCS; 2023-04-24)
DX: K31.84 Gastroparesis (principal); E86.0 Dehydration; Z88.5 Allergy status to narcotic agent; Z91.041 Radiographic dye allergy status; Z88.8 Allergy status to other drugs, medicaments and biological substances; K21.9 Gastro-esophageal reflux disease without esophagitis; K44.9 Diaphragmatic hernia without obstruction or gangrene; I25.10 Atherosclerotic heart disease of native coronary artery without angina pectoris; I11.0 Hypertensive heart disease with heart failure; J44.9 Chronic obstructive pulmonary disease, unspecified; Z95.5 Presence of coronary angioplasty implant and graft; J18.8 Other pneumonia, unspecified organism; E03.9 Hypothyroidism, unspecified
CPT/HCPCS: 36415; 71045-TC-FY; 74176-TC; 80048; 80053; 81003; 83605; 83690; 83735; 84100; 84439; 84443; 85025; 85027; 86850; 86900; 86901; 87086; 93005; 93010; 96365; 96375; 97116-GP; 97162-GP; 99285-25; G0378

== ENCOUNTER 2023-06-29 20:04 | Observation (INO) | payer OTHER ==
[2023-06-29 21:23] LABS: BASO % 0.6 % (0-2.0); EOS % 0.9 % (0-4.5); HEMATOCRIT 36.6 % (32.4-45.2); HEMOGLOBIN 12.3 GM/dL (10.7-15.3); LYMPH % 10.1 % (8-40); MCHC 33.5 g/dl (32.0-36.0); MEAN CELL VOLUME 80.6 fl (80-96); MEAN PLT VOLUME 8.6 fl (7.5-11.1); MONO % 7.7 % (3.8-10.2); NEUT % 80.7 % (42.8-82.8); PLATELET COUNT 261 10^3/uL (134-434); RBC 4.55 M/mm3 (3.60-5.2); RDW 13.8 % (11.6-15.6); WHITE BLOOD COUNT 11.9 K/mm3 (4.0-10.0)
[2023-06-29 21:32] LABS: INR 1.03 (0.83-1.09); PROTHROMBIN TIME (PATIENT) 11.9 SEC (9.7-13.0)
[2023-06-29 21:34] LABS: ACTIVATED PTT 27.8 SECONDS (25.2-36.5)
[2023-06-29 21:44] LABS: POTASSIUM 4.1 mmol/L (3.5-5.1)
[2023-06-29 21:46] LABS: CALCIUM 9.7 mg/dL (8.5-10.1)
[2023-06-29 21:47] LABS: ALBUMIN 3.8 g/dl (3.4-5.0); BLOOD UREA NITROGEN 37.2 mg/dL (7-18); MAGNESIUM 1.9 mg/dL (1.8-2.4)
[2023-06-29 21:50] LABS: CREATININE 1.2 mg/dL (0.55-1.3)
[2023-06-29 21:51] LABS: BILIRUBIN,TOTAL 0.5 mg/dL (0.2-1); TOT PROT 6.5 g/dl (6.4-8.2)
[2023-06-29 21:55] LABS: N-TERMINAL BNP 1254.3 pg/ml (5-450)
[2023-06-29 22:34] LABS: PH,URINE 7.5 (5.0-8.0); URINE APPEARANCE CLEAR; URINE BILIRUBIN NEGATIVE (NEGATIVE); URINE COLOR YELLOW; URINE GLUCOSE (UA) NEGATIVE (NEGATIVE); URINE KETONE NEGATIVE (NEGATIVE); URINE LEUK ESTERASE NEGATIVE (NEGATIVE); URINE NITRITE NEGATIVE (NEGATIVE); URINE PROTEIN NEGATIVE (NEGATIVE); URINE UROBILINOGEN 0.2 mg/dL (0.2-1.0)
[2023-06-30] MEDS ORDERED: ONDANSETRON 4 MG/2 ML VIAL IVPUSH ONE (00:46)
[2023-06-30] MEDS ORDERED: ONDANSETRON 4 MG/2 ML VIAL ONE (00:51)
[2023-06-30 05:24] VITALS: BMI 26.1
[2023-06-30 07:28] LABS: HEMATOCRIT 34.7 % (32.4-45.2); HEMOGLOBIN 11.4 GM/dL (10.7-15.3); MCH 27.3 pg (25.7-33.7); MEAN CELL VOLUME 82.6 fl (80-96); PLATELET COUNT 232 10^3/uL (134-434); RDW 13.5 % (11.6-15.6); WHITE BLOOD COUNT 9.3 K/mm3 (4.0-10.0)
[2023-06-30 07:39] LABS: POTASSIUM 3.6 mmol/L (3.5-5.1)
[2023-06-30 07:45] LABS: ALBUMIN 3.1 g/dl (3.4-5.0); CALCIUM 9.1 mg/dL (8.5-10.1); MAGNESIUM 1.8 mg/dL (1.8-2.4)
[2023-06-30 07:46] LABS: BLOOD UREA NITROGEN 31.5 mg/dL (7-18); CHOLESTEROL 178 mg/dL (50-200)
[2023-06-30 07:47] LABS: LDL CHOLESTEROL (ONLY SJRH) 93 mg/dL (5-100)
[2023-06-30 07:48] LABS: PHOSPHOROUS 2.8 mg/dL (2.5-4.9)
[2023-06-30 07:49] LABS: CREATININE 1.1 mg/dL (0.55-1.3); HDL CHOLESTEROL 77 mg/dL (40-60)
[2023-06-30 07:50] LABS: BILIRUBIN,TOTAL 0.6 mg/dL (0.2-1); TOT PROT 5.5 g/dl (6.4-8.2)
[2023-06-30] MEDS ORDERED: ACETAMINOPHEN 325 MG TABLET (FP) PO PRN (09:29)
[2023-06-30] MEDS ORDERED: amLODIPine BESYLATE 10 MG TABLET (FP) PO SCH (10:00)
[2023-06-30] MEDS ORDERED: ENOXAPARIN NA (PORCINE) 40 MG/0.4 ML DISP.SYRIN SQ SCH (10:00)
[2023-06-30] MEDS ORDERED: VALSARTAN 80 MG TABLET PO SCH (10:00)
[2023-06-30] MEDS: FLUoxetine HCL 20 MG CAPSULE PO SCH (10:02)
[2023-06-30] MEDS: CARVEDILOL 12.5 MG TABLET (FP) PO SCH ×2 (10:02→22:38)
[2023-06-30] MEDS: FLUTICASONE PROP 0.05% 16 GM NASAL SPRAY NS SCH (10:03)
[2023-06-30] MEDS: ASPIRIN COATED 81 MG TABLET.EC PO SCH (10:03)
[2023-06-30] MEDS: ENOXAPARIN NA (PORCINE) 40 MG/0.4 ML DISP.SYRIN SQ SCH (10:03)
[2023-06-30] MEDS: busPIRone HCL 10 MG TABLET (FP) PO SCH (22:39)
[2023-07-01] MEDS: busPIRone HCL 10 MG TABLET (FP) PO SCH ×3 (06:41→22:45)
[2023-07-01] MEDS: LEVOTHYROXINE NA 125 MCG TABLET (FP) PO SCH (06:41)
[2023-07-01] MEDS ORDERED: LEVOTHYROXINE NA 125 MCG TABLET (FP) PO SCH (07:00)
[2023-07-01 09:02] LABS: BASO % 0.6 % (0-2.0); EOS % 2.8 % (0-4.5); HEMATOCRIT 37.5 % (32.4-45.2); HEMOGLOBIN 12.7 GM/dL (10.7-15.3); LYMPH % 22.6 % (8-40); MCH 27.7 pg (25.7-33.7); MCHC 33.8 g/dl (32.0-36.0); MEAN PLT VOLUME 8.7 fl (7.5-11.1); MONO % 10.7 % (3.8-10.2); NEUT % 63.3 % (42.8-82.8); PLATELET COUNT 272 10^3/uL (134-434); RBC 4.57 M/mm3 (3.60-5.2); RDW 13.7 % (11.6-15.6); WHITE BLOOD COUNT 7.7 K/mm3 (4.0-10.0)
[2023-07-01 09:27] LABS: POTASSIUM 3.7 mmol/L (3.5-5.1)
[2023-07-01 09:30] LABS: ALBUMIN 3.6 g/dl (3.4-5.0); CALCIUM 9.7 mg/dL (8.5-10.1)
[2023-07-01 09:33] LABS: CREATININE 1.1 mg/dL (0.55-1.3)
[2023-07-01 09:35] LABS: BILIRUBIN,TOTAL 0.6 mg/dL (0.2-1); TOT PROT 6.6 g/dl (6.4-8.2)
[2023-07-01] MEDS ORDERED: VALSARTAN 80 MG TABLET PO SCH (10:00)
[2023-07-01] MEDS ORDERED: hydrALAZINE HCL 50 MG TABLET (FP) PO SCH (10:00)
[2023-07-01] MEDS: CARVEDILOL 12.5 MG TABLET (FP) PO SCH ×2 (10:59→22:45)
[2023-07-01] MEDS: hydrALAZINE HCL 50 MG TABLET (FP) PO SCH ×2 (10:59→22:45)
[2023-07-01] MEDS: ENOXAPARIN NA (PORCINE) 40 MG/0.4 ML DISP.SYRIN SQ SCH (10:59)
[2023-07-01] MEDS: ASPIRIN COATED 81 MG TABLET.EC PO SCH (10:59)
[2023-07-01] MEDS: FLUoxetine HCL 20 MG CAPSULE PO SCH (10:59)
[2023-07-01] MEDS: FLUTICASONE PROP 0.05% 16 GM NASAL SPRAY NS SCH (11:00)
[2023-07-02] MEDS: LEVOTHYROXINE NA 125 MCG TABLET (FP) PO SCH (06:10)
[2023-07-02] MEDS: busPIRone HCL 10 MG TABLET (FP) PO SCH ×3 (06:10→21:44)
[2023-07-02] MEDS ORDERED: ONDANSETRON 4 MG TABLET PO ONE (10:00)
[2023-07-02] MEDS: ASPIRIN COATED 81 MG TABLET.EC PO SCH (10:22)
[2023-07-02] MEDS: ENOXAPARIN NA (PORCINE) 40 MG/0.4 ML DISP.SYRIN SQ SCH (10:22)
[2023-07-02] MEDS: CARVEDILOL 12.5 MG TABLET (FP) PO SCH ×2 (10:23→21:44)
[2023-07-02] MEDS: FLUoxetine HCL 20 MG CAPSULE PO SCH (10:23)
[2023-07-02] MEDS: FLUTICASONE PROP 0.05% 16 GM NASAL SPRAY NS SCH (10:23)
[2023-07-02] MEDS: hydrALAZINE HCL 50 MG TABLET (FP) PO SCH ×2 (10:23→21:44)
[2023-07-03] MEDS: LEVOTHYROXINE NA 125 MCG TABLET (FP) PO SCH (06:28)
[2023-07-03] MEDS: busPIRone HCL 10 MG TABLET (FP) PO SCH ×2 (06:28→13:03)
[2023-07-03 09:12] VITALS: RESP 18
[2023-07-03] MEDS: hydrALAZINE HCL 50 MG TABLET (FP) PO SCH (09:32)
[2023-07-03] MEDS: CARVEDILOL 12.5 MG TABLET (FP) PO SCH (09:32)
[2023-07-03] MEDS: ASPIRIN COATED 81 MG TABLET.EC PO SCH (09:32)
[2023-07-03] MEDS: FLUoxetine HCL 20 MG CAPSULE PO SCH (09:32)
[2023-07-03] MEDS: ENOXAPARIN NA (PORCINE) 40 MG/0.4 ML DISP.SYRIN SQ SCH (09:32)
[2023-07-03] MEDS: FLUTICASONE PROP 0.05% 16 GM NASAL SPRAY NS SCH (09:33)
[2023-07-03] MEDS ORDERED: PANTOPRAZOLE 40 MG TABLET PO ONE (14:00)
[2023-07-03 14:39] VITALS: TEMP 98.6
[2023-07-03] MEDS ORDERED: TRIMETHOBENZAMIDE HCL 200MG/2ML INJ IM ONE (17:00)
[2023-07-03] MEDS ORDERED: CARVEDILOL 3.125 MG TABLET (FP) PO ONE (17:19)
[2023-07-03 17:41] VITALS: BP 155/64; PULSE 62
== END 2023-07-03 17:50 ==
LOC: JER 20:04 → JERBED 23:37 → J4W 06-30 03:13
PROVIDERS: ADMIT Internal Medicine; ATTEND Internal Medicine
PROC: 3E033GC Introduction of Other Therapeutic Substance into Peripheral Vein, Percutaneous Approach (ICD-10-PCS; principal; 2023-06-29)
PROC: 3E023GC Introduction of Other Therapeutic Substance into Muscle, Percutaneous Approach (ICD-10-PCS; 2023-06-29)
DX: R77.8 Other specified abnormalities of plasma proteins (principal); I16.0 Hypertensive urgency; R53.1 Weakness; R55 Syncope and collapse; Z91.041 Radiographic dye allergy status; E78.5 Hyperlipidemia, unspecified; I25.10 Atherosclerotic heart disease of native coronary artery without angina pectoris; I25.83 Coronary atherosclerosis due to lipid rich plaque; Z95.5 Presence of coronary angioplasty implant and graft; J44.9 Chronic obstructive pulmonary disease, unspecified; J18.8 Other pneumonia, unspecified organism; E03.9 Hypothyroidism, unspecified; K31.84 Gastroparesis; K21.9 Gastro-esophageal reflux disease without esophagitis; Z90.49 Acquired absence of other specified parts of digestive tract; Z90.79 Acquired absence of other genital organ(s); K58.9 Irritable bowel syndrome, unspecified; D72.829 Elevated white blood cell count, unspecified; Z29.8 Encounter for other specified prophylactic measures; I11.0 Hypertensive heart disease with heart failure; I50.30 Unspecified diastolic (congestive) heart failure; R79.9 Abnormal finding of blood chemistry, unspecified; Z88.8 Allergy status to other drugs, medicaments and biological substances; Z88.6 Allergy status to analgesic agent
CPT/HCPCS: 0241U-QW; 36415; 70450-TC; 70486-TC; 71045-TC-FY; 72125-TC; 80053; 80061; 81003; 82550; 82553; 83735; 83880; 84100; 84443; 84484; 85025; 85027; 85610; 85730; 86850; 86900; 86901; 87086; 93005; 93010; 93306-TC; 93880-TC; 96372; 96374; 97116-GP; 97162-GP; 99285-25; G0378